=== PATIENT | female | born 1995 | race Caucasian/White ===

== ENCOUNTER 2021-06-23 14:55 | Inpatient (IN) ==
[2021-06-23] MEDS ORDERED: SODIUM CHLORIDE 0.9% 1000ML 1,000 ML IV ONE (15:11)
--- NOTE | 2021-06-23 15:15 | Emergency Department Note ---
Impression & Plan Positive blood culture, Tachycardia, Fever ED Provider Note NAME: RICK JENKINS AGE: 25 SEX: F : 1995 ARRIVES VIA: Walk-In INFORMANT: Patient, ED PROVIDER(S): Josh Mccall DO CHIEF COMPLAINT: Positive blood culture HPI: The patient is a 25-year-old female who presented to the emergency department for an evaluation of a positive blood culture. We called the patient to come back to the emergency department today. She has a port in her right chest wall that was placed 2 and half weeks ago at [place] for TPN. The patient has a history of multiple medical issues for which she cannot eat properly. She has severe malnutrition because of this. She has chronic epigastric abdominal pain. She had a port placed for TPN and presented to the emergency department 2 days ago for an evaluation of fever. At that time the patient had a complete work-up and was able to be sent home. She presents back today because of a positive blood culture for yeast not Sarah albicans that was noted overnight. The patient states she feels weak and tachycardic. She denies having any recent fevers. She denies having any nausea or vomiting. She is had no cough. The patient has been compliant with the usual medications otherwise. ROS: See above HPI for pertinent positives & negatives. A total of 10 systems reviewed and were otherwise negative. PAST MEDICAL HISTORY: See Below PAST SURGICAL HISTORY: See Below FAMILY HISTORY: See Below SOCIAL HISTORY: See Below HOME MEDICATIONS: See Below ALLERGIES: See Below VITALS: See Below PHYSICAL EXAMINATION: GENERAL: Patient is awake alert in no acute distress patient is resting comfortably and showing no signs of anxiety EYES: The conjunctivae are clear. The pupils are round and reactive. EARS, NOSE, MOUTH AND THROAT: The nose is without any evidence of any deformity. NECK: The neck is nontender and supple. RESPIRATORY: Normal respiratory effort is noted there is no evidence of wheezing rhonchi or rales CARDIOVASCULAR: Tachycardic rate with regular rhythm was noted. There was no definite murmur. GASTROINTESTINAL: The abdomen is soft. Abdomen is nontender. MUSCULOSKELETAL/EXTREMITIES: There is no evidence of gross deformity full range of motion is noted in the hips and shoulders. SKIN: There is no obvious evidence of any rash. There are no petechiae, pallor or cyanosis noted. NEUROLOGIC: Patient is awake alert and oriented x 3. Gait was steady. MEDICAL DECISION MAKING: The patient is a 25-year-old female who presented to emergency department for an evaluation of positive blood culture. The patient has a history of a port placed 2-1/2 weeks ago in her chest for TPN. She started noticing fever over the last few days. She was seen in our facility 24 hours ago. She was not found to have any source for her infection. The patient was at home but was called today to return to the emergency department because of a positive blood culture for yeast. The patient was treated with IV antibiotics as well as IV fluids in the emergency department. I discussed her condition with the on-call [facility] hospitalist group. They will evaluate the patient in the emergency department for further management and disposition. Triage Nursing notes reviewed. Prior medical records reviewed Vital Signs: reviewed and remarkable for tachycardia. Differential diagnosis: Viral syndrome, otitis, pharyngitis, pneumonia, influenza, meningitis, urinary tract infection, sepsis, bacteremia, as well as other pathologies. ER treatment provided: See below Diagnostics interpreted by me: ECG: EKG was obtained in the emergency department. My interpretation is sinus tachycardia 118 bpm. There is no ectopy. Nonspecific T wave abnormalities were noted. This was compared to a tracing from April 092020. No significant changes were noted. Laboratory studies: As stated above and show below. Imaging studies: See below Consultation(s): I discussed this case with Deonna sahu who is on-call for the [facility] Hospitalist group. Past Med/Surg History Medical History Abdominal pain, chronic, epigastric Jaqui-Danlos disease Jejunostomy tube present On total parenteral nutrition (TPN) POTS (postural orthostatic tachycardia syndrome) Severe malnutrition Surgical History H/O wisdom tooth extraction H/O wrist surgery History of esophagogastroduodenoscopy (EGD) S/P knee surgery Left Social History Smoking Status: Never smoker Feels Safe at Home: Yes Allergies Allergies Allergy/AdvReac Type Severity Reaction Status Date / Time prochlorperazine Allergy Severe Anaphylaxis Verified 06/22/21 10:22 [From Compazine] adhesive Allergy red,swollen Verified 06/22/21 10:22 Latex, Natural Rubber AdvReac Intermediate REDDENED Verified 06/22/21 10:22 AND ITCHINESS MANY FOOD ALLERGIES Allergy Intermediate MOST Uncoded 06/22/21 10:22 COMMON REACTION IS GI UPSET POLLEN Allergy Intermediate ITCHY Uncoded 06/22/21 10:22 EYES, SNEEZING, CONGESTION Home Meds Home Medications Medication Instructions Recorded Confirmed buspirone 5 mg tablet 5 mg PO BID 04/09/21 06/22/21 celecoxib 200 mg capsule 200 mg PO DAILY PRN 04/09/21 06/22/21 famotidine 20 mg tablet 20 mg PO BID 04/09/21 06/22/21 fludrocortisone 0.1 mg tablet 0.1 mg PO DAILY 04/09/21 06/22/21 gabapentin 100 mg capsule 200 mg PO TID 04/09/21 06/22/21 loratadine 10 mg tablet 10 mg PO DAILY 04/09/21 06/22/21 montelukast 10 mg tablet 10 mg PO DAILY 04/09/21 06/22/21 (Singulair) omeprazole 20 mg capsule,delayed 20 mg PO BID 04/09/21 06/22/21 release ondansetron HCl 8 mg tablet 8 mg PO Q8 PRN 04/09/21 06/22/21 mirtazapine 30 mg tablet (Remeron) 30 mg PO DAILY 05/29/21 06/22/21 Previous Rx's Medication Instructions Recorded cefdinir 300 mg capsule 300 mg PO BID 10 Days #20 cap 06/22/21 cefdinir 300 mg capsule 300 mg PO BID 10 Days #20 cap 06/22/21 Results & Data (ED) Vital Signs Vital Signs - 24 hr 06/23/21 14:55 Temperature 37.1 C Temperature Source Temporal Artery Scan Pulse Rate 129 H Respiratory Rate 19 Respiratory Effort / Characteristics Non-Labored Spontaneous Respiratory Depth Normal Respiratory Pattern Regular Blood Pressure 115/80 Blood Pressure Mean 91 Pulse Oximetry 96 Oxygen Delivery Method Room Air Sepsis Recent Fever Within 48 Hours Yes Sepsis New/Unexplained Change in Mental Status N/A Sepsis Action Taken by Nursing No Action Required Home Medications Current Medication List: was personally reviewed by me Laboratory Data Attestation: I reviewed the patient's lab results. Result diagrams: 06/23/21 15:57 06/23/21 15:57 Lab Results 06/23/21 06/23/21 06/23/21 Range/Units 15:57 15:57 15:57 WBC 2.57 L (4.8-10.8) K/uL RBC 4.27 (4.2-5.4) M/uL Hgb 12.8 (12.0-16.0) g/dL Hct 39.1 (37-47) % MCV 91.6 (80-100) fL MCH 30.0 (25-34) pg MCHC 32.7 (32-36) g/dL RDW Std Deviation 43.8 (36.4-46.3) fL RDW Coeff of Priscilla 13.0 (11.5-14.5) % Plt Count 300 (130-400) K/uL MPV 10.3 (7.4-10.4) fL Immature Gran % (Auto) 0.4 % Neut % (Auto) 56.7 % Lymph % (Auto) 39.7 % [place] % (Auto) 0.8 % Eos % (Auto) 1.6 % Baso % (Auto) 0.8 % Neut # (Auto) 1.46 (1.4-6.5) K/uL Lymph # (Auto) 1.02 L (1.2-3.4) K/uL [place] # (Auto) 0.02 L (0.11-0.59) K/uL Eos # (Auto) 0.04 (0-0.5) K/uL Baso # (Auto) 0.02 (0-0.2) K/uL Immature Gran # (Auto) 0.01 (0.00-0.02) K/uL PT (9.0-12.0) Seconds INR (0.9-1.1) APTT (21.0-31.0) Seconds PTT Ratio Sodium 138 (136-145) mmol/L Potassium 3.7 (3.5-5.1) mmol/L Chloride 106 (98-107) mmol/L Carbon Dioxide 26 (21-32) mmol/L Anion Gap 7.0 (3-11) BUN 12 (7-18) mg/dl Creatinine 0.90 (0.6-1.2) mg/dl Est Cr Clr Drug Dosing 69.7 ml/min Est GFR ( Amer) 104.5 ml/min Est GFR (Non-Af Amer) 90.1 ml/min BUN/Creatinine Ratio 13.6 (10-20) Glucose 118 H (70-99) mg/dl Calcium 8.9 (8.5-10.1) mg/dl Magnesium 2.2 (1.8-2.4) mg/dl Total Bilirubin 0.4 (0.2-1) mg/dl AST 58 H (15-37) U/L ALT 55 (12-78) Alkaline Phosphatase 108 (45-117) U/L Troponin I < 0.015 (0-0.045) ng/ml Total Protein 8.0 (6.4-8.2) gm/dl Albumin 3.7 (3.4-5.0) gm/dl Globulin 4.3 H (2.5-4.0) gm/dl Albumin/Globulin Ratio 0.9 (0.9-2) HCG, Qual Negative (Negative) 06/23/21 Range/Units 15:57 WBC (4.8-10.8) K/uL RBC (4.2-5.4) M/uL Hgb (12.0-16.0) g/dL Hct (37-47) % MCV (80-100) fL MCH (25-34) pg MCHC (32-36) g/dL RDW Std Deviation (36.4-46.3) fL RDW Coeff of Priscilla (11.5-14.5) % Plt Count (130-400) K/uL MPV (7.4-10.4) fL Immature Gran % (Auto) % Neut % (Auto) % Lymph % (Auto) % [place] % (Auto) % Eos % (Auto) % Baso % (Auto) % Neut # (Auto) (1.4-6.5) K/uL Lymph # (Auto) (1.2-3.4) K/uL [place] # (Auto) (0.11-0.59) K/uL Eos # (Auto) (0-0.5) K/uL Baso # (Auto) (0-0.2) K/uL Immature Gran # (Auto) (0.00-0.02) K/uL PT 11.4 (9.0-12.0) Seconds INR 1.1 (0.9-1.1) APTT 28.1 (21.0-31.0) Seconds PTT Ratio 1.1 Sodium (136-145) mmol/L Potassium (3.5-5.1) mmol/L Chloride (98-107) mmol/L Carbon Dioxide (21-32) mmol/L Anion Gap (3-11) BUN (7-18) mg/dl Creatinine (0.6-1.2) mg/dl Est Cr Clr Drug Dosing ml/min Est GFR ( Amer) ml/min Est GFR (Non-Af Amer) ml/min BUN/Creatinine Ratio (10-20) Glucose (70-99) mg/dl Calcium (8.5-10.1) mg/dl Magnesium (1.8-2.4) mg/dl Total Bilirubin (0.2-1) mg/dl AST (15-37) U/L ALT (12-78) Alkaline Phosphatase (45-117) U/L Troponin I (0-0.045) ng/ml Total Protein (6.4-8.2) gm/dl Albumin (3.4-5.0) gm/dl Globulin (2.5-4.0) gm/dl Albumin/Globulin Ratio (0.9-2) HCG, Qual (Negative) Administered Medications Discontinued Medications Sodium Chloride (Nss 1000ml) 1,000 mls @ 999 mls/hr IV .Q1H1M ONE Stop: 06/23/21 16:11 Last Admin: 06/23/21 16:14 Dose: 999 mls/hr Documented by: [id number] Imaging Data Radiologist's Impression: Chest X-Ray 06/23/21 15:07 XR chest 1V portable CLINICAL HISTORY: SEPSIS. Evaluate cardiopulmonary status COMPARISON STUDY: 06/22/2021 TECHNIQUE: 1 view of the chest FINDINGS: Single frontal view of the chest demonstrates the cardiomediastinal silhouette to be within normal limits. A Port-A-Cath is again in place. The lungs are clear of alveolar opacities. There is no evidence for pleural effusion. There is no evidence for vascular congestion. There is no acute osseous pathology. IMPRESSION: No acute cardiopulmonary disease. No significant interval change. ACT 112: Negative or not required by law. Electronically signed by: Brian Heredia M.D. 06/23/2021 4:09 PM Discharge Plan Visit Data Chief Complaint: Infection Stated Complaint: PORT INFECTION ED Provider: Josh Mccall Discharge Problem: Positive blood culture, Tachycardia, Fever Patient Disposition: Being Evaluated by Hospitalist Forms Stand Alone Forms: My [facility] Prescriptions Prescriptions: No Action celecoxib 200 mg capsule 200 mg PO DAILY PRN (Reason: ..) RF: 0 buspirone 5 mg tablet 5 mg PO BID RF: 0 ondansetron HCl 8 mg tablet 8 mg PO Q8 PRN (Reason: Nausea) RF: 0 famotidine 20 mg tablet 20 mg PO BID RF: 0 omeprazole 20 mg capsule,delayed release(DR/EC) 20 mg PO BID RF: 0 montelukast [Singulair] 10 mg Tablet 10 mg PO DAILY RF: 0 gabapentin 100 mg capsule 200 mg PO TID RF: 0 fludrocortisone 0.1 mg tablet 0.1 mg PO DAILY RF: 0 loratadine 10 mg Tablet 10 mg PO DAILY RF: 0 mirtazapine [Remeron] 30 mg Tablet 30 mg PO DAILY RF: 0 cefdinir 300 mg capsule 300 mg PO BID 10 Days Qty: 20 RF: 0 cefdinir 300 mg capsule 300 mg PO BID 10 Days Qty: 20 RF: 0 Referrals Referrals: Meek Lopez MD [Primary Care Provider] -
--- NOTE | 2021-06-23 16:11 | XRay Report ---
XR chest 1V portable CLINICAL HISTORY: SEPSIS. Evaluate cardiopulmonary status COMPARISON STUDY: 06/22/2021 TECHNIQUE: 1 view of the chest FINDINGS: Single frontal view of the chest demonstrates the cardiomediastinal silhouette to be within normal li mits. A Port-A-Cath is again in place. The lungs are clear of alveolar opacities. There is no evidenc e for pleural effusion. There is no evidence for vascular congestion. There is no acute osseous patho logy. IMPRESSION: No acute cardiopulmonary disease. No significant interval change. ACT 112: Negative or not required by law. Electronically signed by: Brian Heredia M.D. 06/23/2021 4:09 PM
[2021-06-23 16:13] LABS: Basophils # (auto) 0.02 K/uL (0-0.2); Basophils % (auto) 0.8 %; Eosinophils # (auto) 0.04 K/uL (0-0.5); Eosinophils % (auto) 1.6 %; Hematocrit (blood only) 39.1 % (37-47); Hemoglobin 12.8 g/dL (12.0-16.0); Immature Granulocytes # (auto) 0.01 K/uL (0.00-0.02); Immature Granulocytes % (auto) 0.4 %; Lymphocytes # (auto) 1.02 K/uL (1.2-3.4); Lymphocytes % (auto) 39.7 %; Mean Corpuscular Hgb Conc 32.7 g/dL (32-36); Mean Corpuscular Volume 91.6 fL (80-100); Mean Platelet Volume 10.3 fL (7.4-10.4); Monocytes # (auto) 0.02 K/uL (0.11-0.59); Monocytes % (auto) 0.8 %; Neutrophils # (auto) 1.46 K/uL (1.4-6.5); Neutrophils % (auto) 56.7 %; Platelet Count 300 K/uL (130-400); RDW Standard Deviation 43.8 fL (36.4-46.3); Red Blood Count 4.27 M/uL (4.2-5.4); White Blood Count 2.57 K/uL (4.8-10.8)
[2021-06-23] MEDS ORDERED: CASPOFUNGIN 70 MG in SODIUM CHLORIDE 0.9% 250 ML IV STA (16:18)
[2021-06-23 16:19] LABS: INR 1.1 (0.9-1.1); Partial Thromboplastin Ratio 1.1; Partial Thromboplastin Time 28.1 Seconds (21.0-31.0); Prothrombin Time 11.4 Seconds (9.0-12.0)
[2021-06-23 16:30] LABS: Alanine Aminotransferase 55 (12-78); Albumin Level 3.7 gm/dl (3.4-5.0); Aspartate Aminotransferase 58 U/L (15-37); BUN Creatinine Ratio 13.6 (10-20); Blood Urea Nitrogen 12 mg/dl (7-18); Calcium 8.9 mg/dl (8.5-10.1); Carbon Dioxide 26 mmol/L (21-32); Chloride 106 mmol/L (98-107); Creatinine Clr Calc Pharmacy 69.7 ml/min; Est GFR (African American) 104.5 ml/min; Est GFR (Non-African American) 90.1 ml/min; Glucose 118 mg/dl (70-99); Magnesium 2.2 mg/dl (1.8-2.4); Potassium 3.7 mmol/L (3.5-5.1); Sodium 138 mmol/L (136-145)
[2021-06-23 16:33] LABS: Pregnancy Test, Serum Negative (Negative)
[2021-06-23 16:35] LABS: Albumin Globulin Ratio 0.9 (0.9-2); Alkaline Phosphatase 108 U/L (45-117); Bilirubin,Total 0.4 mg/dl (0.2-1); Globulin 4.3 gm/dl (2.5-4.0); Troponin I < 0.015 ng/ml (0-0.045)
[2021-06-23 16:50] LABS: Procalcitonin 0.24 ng/ml (0-0.5)
--- NOTE | 2021-06-23 17:50 | Communication Note ---
Date of Service: June 23, 2021 History and physical exam performed by me. History notable for fever, mildly for the past 2 days. Recent port placement for TPN last month. General: No acute distress and not ill appearing. Thin with bony prominences Eyes: PERRL, conjunctivae normal, not pale, anicteric sclerae, EOM intact bilaterally ENMT: External ear and nose normal, oropharynx normal Respiratory: Normal respiratory effort, no respiratory distress, lungs clear to auscultation, no crackles and no wheezes Cardiovascular: Tachycardia (chronic). Heart Sounds: normal S1 and normal S2; Extremities: no pedal edema Chest (Breasts): chest port on anterior right upper chest. No erythema or purulence Gastrointestinal (Abdomen): Abdomen is not distended, soft, non-tender to palpation, no guarding, no palpable hepatosplenomegaly, normal bowel sounds PEG tube in place Musculoskeletal: No cyanosis or clubbing, all extremities motor strength 5/5 Neurologic: Alert and oriented x 3, No focal weakness, sensation grossly intact Psychiatric: Alert and oriented x 3, euthymic affect, no depressed affect Lab work notable for WBC of 2.57, AST of 58 Blood culture from yesterday growing yeast Fungemia in a patient with port for which she gets TPN. Severe malnutrition Started on caspofungin. We will continue this. Get ophthalmology consult for funduscopic exam TTE Surgery consulted to remove port Repeat blood cultures until negative I called ID Dr. Alcazar and discussed plans with him which he agreed. Agree with other plans as detailed by Deonna MENDENHALL
[2021-06-23 17:52] LABS: Influenza A virus by PCR Negative (Neg); Influenza B virus by PCR Negative (Neg); RSV by PCR Negative (Neg); SARS CoV2 RNA(COVID-19) InHosp NEGATIVE (Negative)
--- NOTE | 2021-06-23 18:01 | History & Physical Report ---
Date of Service June 23, 2021 Assessment & Plan (1) Fungemia: Plan: -Admit to telemetry -Patient presenting back to the ED after blood cultures from yesterday became positive for yeast, not Sarah albicans. Patient had a right chest tunneled catheter placed on 05/30 at [facility] for TPN administration. Patient previously on tube feeds through GJ tube however became intolerant. -Patient currently afebrile, hemodynamically stable -S/p IV caspofungin in ED, continue with -ID consult -echo -Due to fungemia, ophthalmology consult for eye exam -General surgery consult for line removal -Serial blood cultures every 2 days (2) POTS (postural orthostatic tachycardia syndrome): Plan: -Continue Florinef (3) Abdominal pain, chronic, epigastric: (4) On total parenteral nutrition (TPN): (5) Severe malnutrition: Plan: -Longstanding history of GI issues, has had extensive work-up completed. Patient is TPN/tube feed dependent due to multiple food intolerances and chronic nausea and abdominal pain. -Patient had a right chest tunneled catheter placed on 05/30 at [facility] for TPN administration. Patient previously on tube feeds through GJ tube however became intolerant. -Patient reports she does take a few bites of food per day. Full liquid diet ordered, advance as tolerated -Start water flushes through GJ tube, may need to restart tube feeds due to removing line due to fungemia -Dietitian consult (6) Jaqui-Danlos disease: (7) Chronic pain: Plan: -Continue home medications (8) DVT prophylaxis: Plan: -SCDs, ambulate History of Present Illness Chief Complaint: Referred for positive blood cultures Primary Care Provider: Meek Lopez MD 25-year-old female with PMH Jaqui-Danlos, POTS, chronic pain syndrome, chronic GI issues with inability to tolerate p.o. TPN and tube feed dependent, severe protein calorie malnutrition, and other problems listed below who presents to the ED due to having positive blood cultures. Patient had a right chest tunneled catheter placed on 05/30 at [facility] for TPN administration. Patient previously on tube feeds through GJ tube however became intolerant. 2 days ago, patient reports she developed fever and was generally not feeling well. She was seen in the ED yesterday and was febrile however work-up was unremarkable. Patient was discharged on cefdinir. Today, blood cultures from yesterday resulted as yeast not Sarah albicans. Patient received a phone call to come back to the ED. Patient denies having any additional fevers. She struggles with chronic nausea and abdominal pain. No chest pain or shortness of breath. Denies lightheadedness, dizziness, diaphoresis, syncopal events. Heart rate chronically runs in the low 100s due to underlying POTS. No urinary symptoms. In the ED, patient is hemodynamically stable. Labs show leukopenia with WBC 2.5K, other labs unremarkable. Patient was given IV caspofungin and IVF. Allergies Allergy/AdvReac Type Severity Reaction Status Date / Time prochlorperazine Allergy Severe Anaphylaxis Verified 06/22/21 10:22 [From Compazine] adhesive Allergy red,swollen Verified 06/22/21 10:22 Latex, Natural Rubber AdvReac Intermediate REDDENED Verified 06/22/21 10:22 AND ITCHINESS MANY FOOD ALLERGIES Allergy Intermediate MOST Uncoded 06/22/21 10:22 COMMON REACTION IS GI UPSET POLLEN Allergy Intermediate ITCHY Uncoded 06/22/21 10:22 EYES, SNEEZING, CONGESTION Home Medications Medication Instructions Recorded Confirmed Type buspirone 5 mg tablet 5 mg PO BID 04/09/21 06/23/21 History famotidine 20 mg tablet 20 mg PO BID 04/09/21 06/23/21 History fludrocortisone 0.1 mg tablet 0.1 mg PO DAILY 04/09/21 06/23/21 History gabapentin 100 mg capsule 200 mg PO TID 04/09/21 06/23/21 History loratadine 10 mg tablet 10 mg PO DAILY 04/09/21 06/23/21 History montelukast 10 mg tablet 10 mg PO DAILY 04/09/21 06/23/21 History (Singulair) omeprazole 20 mg capsule,delayed 20 mg PO BID 04/09/21 06/23/21 History release ondansetron HCl 8 mg tablet 8 mg PO Q8 PRN 04/09/21 06/23/21 History cefdinir 300 mg capsule 300 mg PO BID 10 Days #20 cap 06/22/21 06/23/21 Rx pregabalin 50 mg capsule 50 mg PO BID 06/23/21 06/23/21 History Past Med/Surg History Medical History Abdominal pain, chronic, epigastric Chronic pain Jaqui-Danlos disease Jejunostomy tube present On total parenteral nutrition (TPN) POTS (postural orthostatic tachycardia syndrome) Severe malnutrition Surgical History H/O wisdom tooth extraction H/O wrist surgery History of esophagogastroduodenoscopy (EGD) S/P knee surgery Left Family History Other Adopted Social History Smoking Status: Never smoker Hx Alcohol Use: No Feels Safe at Home: Yes Review of Systems Review of Systems: ROS per HPI, all other systems reviewed and negative Physical Exam Physical Exam: Please refer to Dr. Osei's addendum for physical exam. Results & Data Results & Data ([facility]) Vital Signs (Past 12 Hours) Vital Signs Temp Pulse Resp BP BP Pulse Ox 06/23/21 17:11 110 H 18 116/77 98 06/23/21 14:55 37.1 C 129 H 19 115/80 96 Laboratory Results Short CBC 06/23/21 Range/Units 15:57 WBC 2.57 L (4.8-10.8) K/uL Hgb 12.8 (12.0-16.0) g/dL Hct 39.1 (37-47) % Plt Count 300 (130-400) K/uL BMP 06/23/21 15:57 Sodium 138 Potassium 3.7 Chloride 106 Carbon Dioxide 26 BUN 12 Creatinine 0.90 Glucose 118 H Calcium 8.9 Cardiac Enzymes 06/23/21 Range/Units 15:57 Troponin I < 0.015 (0-0.045) ng/ml Liver Function 06/23/21 Range/Units 15:57 Total Bilirubin 0.4 (0.2-1) mg/dl AST 58 H (15-37) U/L ALT 55 (12-78) Alkaline Phosphatase 108 (45-117) U/L Albumin 3.7 (3.4-5.0) gm/dl Diagnostic Findings Chest X-Ray 06/23/21 15:07 XR chest 1V portable CLINICAL HISTORY: SEPSIS. Evaluate cardiopulmonary status COMPARISON STUDY: 06/22/2021 TECHNIQUE: 1 view of the chest FINDINGS: Single frontal view of the chest demonstrates the cardiomediastinal silhouette to be within normal limits. A Port-A-Cath is again in place. The lungs are clear of alveolar opacities. There is no evidence for pleural effusion. There is no evidence for vascular congestion. There is no acute osseous pathology. IMPRESSION: No acute cardiopulmonary disease. No significant interval change. ACT 112: Negative or not required by law. Electronically signed by: Brian Heredia M.D. 06/23/2021 4:09 PM Code Status & VTE Plan VTE Prophylaxis Plan VTE Prophylaxis will be ordered: Yes Supervising Physician Co-Signing Physician Notes Date of Service: June 23, 2021 History and physical exam performed by me. History notable for fever, mildly for the past 2 days. Recent port placement for TPN last month. General: No acute distress and not ill appearing. Thin with bony prominences Eyes: PERRL, conjunctivae normal, not pale, anicteric sclerae, EOM intact bilaterally ENMT: External ear and nose normal, oropharynx normal Respiratory: Normal respiratory effort, no respiratory distress, lungs clear to auscultation, no crackles and no wheezes Cardiovascular: Tachycardia (chronic). Heart Sounds: normal S1 and normal S2; Extremities: no pedal edema Chest (Breasts): chest port on anterior right upper chest. No erythema or purulence Gastrointestinal (Abdomen): Abdomen is not distended, soft, non-tender to palpation, no guarding, no palpable hepatosplenomegaly, normal bowel sounds PEG tube in place Musculoskeletal: No cyanosis or clubbing, all extremities motor strength 5/5 Neurologic: Alert and oriented x 3, No focal weakness, sensation grossly intact Psychiatric: Alert and oriented x 3, euthymic affect, no depressed affect Lab work notable for WBC of 2.57, AST of 58 Blood culture from yesterday growing yeast Fungemia in a patient with port for which she gets TPN. Severe malnutrition Started on caspofungin. We will continue this. Get ophthalmology consult for funduscopic exam TTE Surgery consulted to remove port Repeat blood cultures until negative I called ID Dr. Alcazar and discussed plans with him which he agreed. Agree with other plans as detailed by Deonna MENDENHALL
[2021-06-23] MEDS ORDERED: ACETAMINOPHEN 325 MG TAB PO PRN (19:47)
[2021-06-23] MEDS: CASPOFUNGIN 50 MG in SODIUM CHLORIDE 0.9% 250 ML IV SCH (20:09)
[2021-06-23] MEDS: SODIUM CHLORIDE 0.9% 1000ML 1,000 ML IV SCH (20:09)
--- NOTE | 2021-06-23 20:39 | Surgery Consultation ---
Date of Consultation June 23, 2021 Assessment & Plan (1) Fungemia: Patient has been admitted on the hospitalist service. We will proceed as follows: We will make the patient n.p.o. at midnight tonight We have tentatively planned on removing the patient's tunneled line in the operating room tomorrow I discussed with the patient the rationale behind removing her catheter. I have also discussed with her that she may require an alternate form of access temporarily for more permanent catheter can be placed so she can resume her nutrition. Agree with treatment with Function. Will Defer the Duration of This Medication to the Medical Service. Agree with Checking 2D Echo Agree with Ophthalmology Evaluation Supervising Physician Co-Signing Physician Notes As per Rocael Ravi physician administration assistant There is no evidence of any drainage at the insertion site therefore we will plan to remove in the operating room with some IV sedation We will obtain permit in the preop area History of Present Illness Reason for Consultation: Infected central access line in need of removal Attending Physician: Alexus Osei MD History of Present Illness This a 25-year female who was seen in the emergency department yesterday secondary to fever and headache. Patient has a complicated gastrointestinal medical history. Patient's notes reviewed and patient does have chronic postprandial abdominal pain. Patient says that she has never been given a definitive diagnosis of what is causing her symptomatology. Because of her abdominal pain the patient at one point did require enteral tube feeds which she did not tolerate. She said when she received enteral tube feeds cause significant abdominal pain and cramping. Because of this the patient did have a tunneled central access catheter placed in the right IJ region. The patient notes that this was placed at [facility] in [place] on May 30 of this year. As noted previously the patient said she developed a fever and headache. She also noted some palpitations and she was noted to be tachycardic. She was seen in the emergency department where she had blood culture sent. She was able to be discharged home after she received some intravenous fluid. The patient's blood culture results came back in one of the cultures was positive for fungemia and the patient was contacted and told to report back to the emergency department for admission. I questioned patient about her port. She says that she uses it for total parenteral nutrition only. She denies using this port for any additional medications or substances. She denies any pain at the port. She does note that either her or her parents administer her nutrition through this port and she feels that they use due diligence and using sterile technique when doing so. He does note that she has visiting nurses who also assist with some of her care of this port. Patient denies any chest pain. She denies any shortness of breath. She denies any visual changes. She says she is not short of breath. At the time of my interview she has not had any abdominal pain. Patient has had labs and imaging which I independently reviewed. A chest x-ray showed no evidence of pneumonia. Labs today include a white blood cell count of 2.57. Her hemoglobin, hematocrit, and platelet count are all normal. Coagulation studies noted to be normal. Chemistry profile showed sodium, potassium, BUN, and creatinine are all within normal range. A Covid test was performed and was noted to be negative. She was also tested for influenza a and B along with RSV which were all negative. At the time of my interview the patient was resting comfortably in bed she was no distress The medical service has ordered an echocardiogram they have also requested an ophthalmology evaluation due to the noted fungemia. They have consulted with ID and they have initiated capsule function. They have now consulted surgery and request to have the patient's line removed as a source of infection. Allergies Allergy/AdvReac Type Severity Reaction Status Date / Time prochlorperazine Allergy Severe Anaphylaxis Verified 06/22/21 10:22 [From Compazine] adhesive Allergy red,swollen Verified 06/22/21 10:22 Latex, Natural Rubber AdvReac Intermediate REDDENED Verified 06/22/21 10:22 AND ITCHINESS MANY FOOD ALLERGIES Allergy Intermediate MOST Uncoded 06/22/21 10:22 COMMON REACTION IS GI UPSET POLLEN Allergy Intermediate ITCHY Uncoded 06/22/21 10:22 EYES, SNEEZING, CONGESTION Home Medications Medication Instructions Recorded Confirmed Type buspirone 5 mg tablet 5 mg PO BID 04/09/21 06/23/21 History famotidine 20 mg tablet 20 mg PO BID 04/09/21 06/23/21 History fludrocortisone 0.1 mg tablet 0.1 mg PO DAILY 04/09/21 06/23/21 History gabapentin 100 mg capsule 200 mg PO TID 04/09/21 06/23/21 History loratadine 10 mg tablet 10 mg PO DAILY 04/09/21 06/23/21 History montelukast 10 mg tablet 10 mg PO DAILY 04/09/21 06/23/21 History (Singulair) omeprazole 20 mg capsule,delayed 20 mg PO BID 04/09/21 06/23/21 History release ondansetron HCl 8 mg tablet 8 mg PO Q8 PRN 04/09/21 06/23/21 History cefdinir 300 mg capsule 300 mg PO BID 10 Days #20 cap 06/22/21 06/23/21 Rx pregabalin 50 mg capsule 50 mg PO BID 06/23/21 06/23/21 History Patient History Medical History Abdominal pain, chronic, epigastric Chronic pain Jaqui-Danlos disease Jejunostomy tube present On total parenteral nutrition (TPN) POTS (postural orthostatic tachycardia syndrome) Severe malnutrition Surgical History H/O wisdom tooth extraction H/O wrist surgery History of esophagogastroduodenoscopy (EGD) S/P knee surgery Left Family History Other Adopted Social History Smoking Status: Unknown if ever smoked Hx Alcohol Use: No Hx Substance Use: No Preferred Language: Colombian Communication Ability: Effective Spud Sorter Required: No Beliefs That Will Affect Care: None Current Living Situation: Parent Feels Safe at Home: Yes Review of Systems Constitutional: + fever; no chills Eyes: no blind spots and no diplopia Ear, Nose, Mouth, Throat: no ear pain and no sore throat Respiratory: no cough and no dyspnea Cardiovascular: no chest pain Gastrointestinal: no nausea and no vomiting Genitourinary: no dysuria Musculoskeletal: no back pain Integumentary: no rash Neurologic: no localized weakness Physical Exam Constitutional: well developed and well nourished; no acute distress Eyes: PERRL, conjunctivae normal, anicteric sclerae ENMT: Ears: no hearing impairment and no external ear abnormality Mouth: no oropharynx abnormality Neck: trachea midline Respiratory: Patient has a tunneled catheter noticed in the right IJ position. There is no erythema noted at the insertion site of her catheter. There is no crepitus noted in soft tissue there is no drainage. There is no pain with palpation. Cardiovascular: Rate/Rhythm: regular rate and regular rhythm Heart Sounds: no murmur Gastrointestinal (Abdomen): Soft, nontender Musculoskeletal: No calf tenderness Skin: no rashes Neurologic: moves all extremities Psychiatric: A+Ox3, euthymic affect Results & Data ([facility]) Vital Signs (Past 12 Hours) Vital Signs Temp Pulse Pulse Resp BP BP Pulse Ox 06/23/21 20:07 117 H 19 114/91 99 06/23/21 18:46 103 H 18 111/78 99 06/23/21 17:11 110 H 18 116/77 98 06/23/21 14:55 37.1 C 129 H 19 115/80 96 Pulse Ox 06/23/21 20:07 99 06/23/21 18:46 06/23/21 17:11 06/23/21 14:55 PG Care Time/CCT Total # of Minutes Spent Total Time Spent with Patient: Total time spent is greater than 50% in coordination of care (as documented) at patient's floor/unit and/or counseling patient: Coding Level of Care Code 22490 Inpt Consult Level 5 Diagnoses Fungemia B49
[2021-06-23] MEDS: TUBE FEEDING WATER FLUSH GT SCH (20:58)
[2021-06-24] MEDS: TUBE FEEDING WATER FLUSH GT SCH ×5 (01:01→21:41)
[2021-06-24 05:55] LABS: Hematocrit (blood only) 37.2 % (37-47); Hemoglobin 11.9 g/dL (12.0-16.0); Mean Corpuscular Hemoglobin 29.1 pg (25-34); Mean Platelet Volume 10.1 fL (7.4-10.4); Platelet Count 275 K/uL (130-400); RDW Coefficient of Variation 12.9 % (11.5-14.5); RDW Standard Deviation 43.2 fL (36.4-46.3); Red Blood Count 4.09 M/uL (4.2-5.4); White Blood Count 3.37 K/uL (4.8-10.8)
[2021-06-24 06:23] LABS: Calcium 8.8 mg/dl (8.5-10.1); Creatinine Clr Calc Pharmacy 104.5 ml/min; Est GFR (African American) 148.9 ml/min; Est GFR (Non-African American) 128.5 ml/min; Phosphorus 3.1 mg/dl (2.5-4.9); Potassium 3.6 mmol/L (3.5-5.1)
[2021-06-24] MEDS ORDERED: LIDOCAINE 1% LOCAL 20 ML VIAL ONE (07:21)
[2021-06-24] MEDS ORDERED: MIDAZOLAM HCL 1 MG/ML 2ML VIAL ONE (07:37)
--- NOTE | 2021-06-24 07:38 | Anesthesiology Consultation ---
Date of Service June 24, 2021 Assessment & Plan (1) Encounter for pre-operative examination: Chart Review Chart Review: Acceptable Risk for Surgery History Surgery Operation Date: 06/24/21 07:30 Proposed Procedures p Infusaport Removal - Hector Tracy MD, FACS Height/Weight Height: 5 ft 3 in Weight: 45.4 kg Allergies Allergy/AdvReac Type Severity Reaction Status Date / Time prochlorperazine Allergy Severe Anaphylaxis Verified 06/22/21 10:22 [From Compazine] adhesive Allergy red,swollen Verified 06/22/21 10:22 Latex, Natural Rubber AdvReac Intermediate REDDENED Verified 06/22/21 10:22 AND ITCHINESS MANY FOOD ALLERGIES Allergy Intermediate MOST Uncoded 06/22/21 10:22 COMMON REACTION IS GI UPSET POLLEN Allergy Intermediate ITCHY Uncoded 06/22/21 10:22 EYES, SNEEZING, CONGESTION Medications Home Medications Medication Instructions Recorded Confirmed Last Taken buspirone 5 mg tablet 5 mg PO BID 04/09/21 06/23/21 Unknown famotidine 20 mg tablet 20 mg PO BID 04/09/21 06/23/21 Unknown fludrocortisone 0.1 mg tablet 0.1 mg PO DAILY 04/09/21 06/23/21 Unknown gabapentin 100 mg capsule 200 mg PO TID 04/09/21 06/23/21 Unknown loratadine 10 mg tablet 10 mg PO DAILY 04/09/21 06/23/21 Unknown montelukast 10 mg tablet 10 mg PO DAILY 04/09/21 06/23/21 Unknown (Singulair) omeprazole 20 mg capsule,delayed 20 mg PO BID 04/09/21 06/23/21 Unknown release ondansetron HCl 8 mg tablet 8 mg PO Q8 PRN 04/09/21 06/23/21 Unknown cefdinir 300 mg capsule 300 mg PO BID 10 Days #20 cap 06/22/21 06/23/21 Unknown pregabalin 50 mg capsule 50 mg PO BID 06/23/21 06/23/21 Unknown Active Medications Generic Name Dose Route Start Last Admin Trade Name Freq PRN Reason Stop Dose Admin Caspofungin 50 mg/ Sodium 260 mls @ 250 mls/hr 06/23/21 19:47 06/23/21 20:09 Chloride IV 07/03/21 19:46 Not Given Q24H ZULY Sodium Chloride 1,000 mls @ 60 mls/hr 06/23/21 19:47 06/23/21 20:09 Nss 1000ml IV 07/23/21 19:46 60 mls/hr .[id number] ZULY Administration Sterile Water 20 ml 06/23/21 19:47 06/24/21 01:01 Tube Feeding Water Flush GT 07/23/21 19:46 Not Given Q6H ZULY Past Medical History Medical History Abdominal pain, chronic, epigastric Chronic pain Jaqui-Danlos disease Jejunostomy tube present On total parenteral nutrition (TPN) POTS (postural orthostatic tachycardia syndrome) Severe malnutrition Past Family History Family History Other Adopted Past Surgical History Surgical History H/O wisdom tooth extraction H/O wrist surgery History of esophagogastroduodenoscopy (EGD) S/P knee surgery Left Social History Smoking Status: Unknown if ever smoked Hx Alcohol Use: No Hx Substance Use: No Physical Exam Vital Signs Last Vital Signs Temp 36.5 C 06/24/21 06:48 Pulse 104 H 06/24/21 06:48 Resp 18 06/24/21 06:48 BP 115/81 06/24/21 06:48 Pulse Ox 99 06/24/21 06:48 Testing Laboratory Results 06/24/21 05:09 06/24/21 05:09 PT 11.4 Seconds (9.0-12.0) 06/23/21 15:57 INR 1.1 (0.9-1.1) 06/23/21 15:57 APTT 28.1 Seconds (21.0-31.0) 06/23/21 15:57
[2021-06-24] MEDS ORDERED: ATROPINE SULFATE 0.1 MG/ML 10ML SYR IV PRN (07:39)
[2021-06-24] MEDS ORDERED: ONDANSETRON INJ 2 MG/ML 2 ML VIAL IV PRN (07:39)
[2021-06-24] MEDS ORDERED: LIDOCAINE 2% 2 ML VIAL/AMP(20MG/ML) INFIL ONE (07:40)
[2021-06-24] MEDS ORDERED: PROPOFOL IV EMULSION 10 MG/ML 20 ML VIAL IV ONE ×2 (07:41→08:05)
[2021-06-24] MEDS ORDERED: PHENYLEPHRINE HCL 10 MG/ML VIAL ONE (08:05)
--- NOTE | 2021-06-24 08:12 | Post Operative Brief Note ---
PG Immediate Post Op with CF Date of Surgery June 24, 2021 Pre & Post Diagnosis Operation Date: 06/24/21 07:30 Pre-Op Diagnosis: Fungemia of Central Line Post-Op Diagnosis: Fungemia of Central Line I identified the patient and participated in the time-out.: Yes Procedure Operation Date: 06/24/21 07:30 Actual Procedures p Removal of Right Tunneled Central Line in Internal Jugular Catheter(Right) - Hector Tracy MD, FACS Surgeon Hector Tracy MD, FACS [employer] 0 Estimated Blood Loss 5 Findings Consistent with Post-Op Diagnosis Specimens Specimen Description: Permenant A: Removed Right Jugular Catheter Culture 1. Right Jugular Catheter
--- NOTE | 2021-06-24 08:21 | Operative Report ---
Post Operative Report Pre & Post Diagnosis Operation Date: 06/24/21 07:30 Pre-Op Diagnosis: Fungemia of Central Line Post-Op Diagnosis: Fungemia of Central Line I identified the patient and participated in the time-out.: Yes Procedure Operation Date: 06/24/21 07:30 Actual Procedures p Removal of Right Tunneled Central Line in Internal Jugular Catheter(Right) - Hector Tracy MD, FACS The patient was brought into the operating theater supine position right neck and upper chest was prepped Betadine solution properly draped IV sedation had been given a timeout was had patient was identified use local anesthetic 1% Xylocaine infiltrate around the insertion site but also an area that I felt was the cough which appeared to be supra clavicular line and another indurated area midway point at this point we have taken out the sutures around the anchoring area at the insertion site and tried to pull on a catheter a little bit we were unsuccessful therefore I made an incision which felt an indurated area above the under the clavicle once we dissected this out we will give get on pseudocapsule but did not feel any cough we then made another small incision in the other area that we had prepped and there we could see over there was the cough that was present with significantly incorporated in the tissue we dissected out and at this point hemostat was placed proximal to come for distal discopathy cut the catheter was cut and we removed it in toto we looked at the centimeter whitman and the patient the catheter has been inserted in the supraclavicular area in the superior vena cava was 15 cm +4 cm peter the area was checked hemostasis it was a little bit then we were able to control was an interrupted vertical mattress of 3-0 nylon a dressing was applied the catheter was sent down for cultures and also for identification The procedure was tolerated well by the patient estimate blood loss 5 cc Surgeon Hector Tracy MD, FACS Perforator Loader 0 Estimated Blood Loss 5 Findings Consistent with Post-Op Diagnosis Tunnel right internal jugular catheter Specimens Catheter Part of it was sent for cultures and sensitivity Indications Fungemia Description of Procedure merda I attest to the content of the Intraoperative Record and any orders documented therein. Any exceptions are noted below.
--- NOTE | 2021-06-24 08:40 | Anesthesiology Progress Note ---
Date of Service June 24, 2021 Anesthesia Post Procedure Vital Signs Vital Signs: Temp Pulse Pulse Resp BP BP Pulse Ox 06/24/21 08:35 36.1 C L 75 16 109/77 97 06/24/21 08:25 84 16 81/45 L 96 06/24/21 08:19 36.1 C L 90 16 87/46 L 97 06/24/21 06:48 36.5 C 104 H 18 115/81 99 06/24/21 02:19 37.1 C 105 H 16 115/74 98 06/24/21 01:00 95 H 16 105/65 97 06/23/21 20:07 117 H 19 114/91 99 06/23/21 18:46 103 H 18 111/78 99 06/23/21 17:11 110 H 18 116/77 98 06/23/21 14:55 37.1 C 129 H 19 115/80 96 Pulse Ox 06/24/21 08:35 06/24/21 08:25 06/24/21 08:19 06/24/21 06:48 06/24/21 02:19 06/24/21 01:00 06/23/21 20:07 99 06/23/21 18:46 06/23/21 17:11 06/23/21 14:55 Transfer of Care Handoff Completed per policy Notes Mental Status: alert / awake / arousable Patient Amnestic to Procedure: Yes Nausea / Vomiting: adequately controlled Pain: adequately controlled Airway Patency, RR, SpO2: stable & adequate BP & HR: stable & adequate Hydration State: stable & adequate Anesthetic Complications: no major complications apparent
[2021-06-24] MEDS: SODIUM CHLORIDE 0.9% 1000ML 1,000 ML IV SCH (09:12)
--- NOTE | 2021-06-24 10:43 | Hospitalist Progress Note ---
Date of Service June 24, 2021 Assessment & Plan (1) Fungemia: Plan: -Patient presented back to the ED after blood cultures from 06/22/21 became positive for yeast, not Sarah albicans. Patient had a right chest tunneled catheter placed on 05/30 at [facility] for TPN administration. Patient previously on tube feeds through GJ tube however became intolerant. -Patient afebrile since admission, hemodynamically stable Continue iv caspofungin Get TTE Awaiting Ophtho for fundoscopic exam Chest port removed by surgery this morning Follow up blood cultures. Need repeat cultures until negative ID consult I did speak with ID on admission over the phone and he agrees with current plan (2) POTS (postural orthostatic tachycardia syndrome): Plan: -Continue Florinef (3) Abdominal pain, chronic, epigastric: (4) On total parenteral nutrition (TPN): (5) Severe malnutrition: Plan: -Longstanding history of GI issues, has had extensive work-up completed. Patient is TPN/tube feed dependent due to multiple food intolerances and chronic nausea and abdominal pain. -Patient had a right chest tunneled catheter placed on 05/30 at [facility] for TPN administration. Patient previously on tube feeds through GJ tube however became intolerant. -Patient reports she does take a few bites of food per day. Full liquid diet ordered, advance as tolerated -Water flushes through GJ tube, may need to restart tube feeds due to removing line due to fungemia -Discussed with RN to monitor intake today F/u Dietitian consult. If not having good intake, may need to start PPN in the meantime Will continue maintenance IVF for now until adequate fluid intake is established (6) Jaqui-Danlos disease: (7) Chronic pain: Plan: -Continue home medications (8) DVT prophylaxis: Plan: -SCDs, ambulate Admission and Anticipated Discharge Date Admission Date: June 23, 2021 Subjective Patient seen and examined Patient had just returned from OR and sleepy. She has no complaints at this time Per RN, no events overnight Physical Exam Physical Exam: General: Thin young lady. Sleepy but arousable Eyes: PERRL, conjunctivae normal, not pale, anicteric sclerae, EOM intact bilaterally ENMT: External ear and nose normal, oropharynx normal Respiratory: Normal respiratory effort, no respiratory distress, lungs clear to auscultation, no crackles and no wheezes Cardiovascular: Pulse is RRR. Heart Sounds: normal S1 and normal S2; no murmurs. Vessels: normal peripheral pulses Extremities: no pedal edema Chest (Breasts): Clean dressing over anterior chest. Chest port has been removed Gastrointestinal (Abdomen): Abdomen is not distended, soft, non-tender to palpation, no guarding, no palpable hepatosplenomegaly, normal bowel sounds. PEG insitu Musculoskeletal: No pedal edema Neurologic: Sleepy but arousable. Just returned from OR. No focal deficits Results & Data Results & Data ([facility]) Vital Signs (Past 12 Hours) Vital Signs Temp Pulse Resp BP Pulse Ox 06/24/21 09:59 85 16 91/56 L 97 06/24/21 09:30 94 H 16 85/49 L 98 06/24/21 09:03 36.7 C 87 16 97/62 L 99 06/24/21 08:35 36.1 C L 75 16 109/77 97 06/24/21 08:25 84 16 81/45 L 96 06/24/21 08:19 36.1 C L 90 16 87/46 L 97 06/24/21 06:48 36.5 C 104 H 18 115/81 99 06/24/21 02:19 37.1 C 105 H 16 115/74 98 06/24/21 01:00 95 H 16 105/65 97 Laboratory Results Abnormal lab results 06/23/21 06/23/21 06/24/21 Range/Units 15:57 15:57 05:09 WBC 2.57 L 3.37 L (4.8-10.8) K/uL RBC 4.09 L (4.2-5.4) M/uL Hgb 11.9 L (12.0-16.0) g/dL Lymph # (Auto) 1.02 L (1.2-3.4) K/uL [place] # (Auto) 0.02 L (0.11-0.59) K/uL Chloride (98-107) mmol/L Glucose 118 H (70-99) mg/dl AST 58 H (15-37) U/L Globulin 4.3 H (2.5-4.0) gm/dl 06/24/21 Range/Units 05:09 WBC (4.8-10.8) K/uL RBC (4.2-5.4) M/uL Hgb (12.0-16.0) g/dL Lymph # (Auto) (1.2-3.4) K/uL [place] # (Auto) (0.11-0.59) K/uL Chloride 109 H (98-107) mmol/L Glucose 61 L (70-99) mg/dl AST (15-37) U/L Globulin (2.5-4.0) gm/dl
[2021-06-24] MEDS: D5W AND NSS 1,000 ML IV SCH (14:00)
[2021-06-24 16:37] LABS: Appearance Urine Cloudy (Clear); Bacteria Urine Automated Negative (Negative); Bilirubin Urine Negative (Negative); Blood Urine 1+ (Negative); Color Urine Yellow; Epithelial Cell Urine Auto >30 /lpf (0-5); Glucose Urine UA Negative (Negative); Ketones Urine 4+ (Negative); Leukocyte Esterase Urine 1+ (Negative); Nitrite Urine Negative (Negative); Protein Urine Negative (Negative); Specific Gravity Urine 1.019 (1.000-1.030); Urobilinogen Urine Negative (Negative); pH Urine 5.5 (4.5-7.5)
[2021-06-24 16:49] LABS: RBC Urine Automated 0-4 /hpf (0-4)
[2021-06-24] MEDS: FLUDROCORTISONE ACETATE 0.1 MG TAB PO SCH (17:17)
[2021-06-24] MEDS: LORATADINE 10 MG TAB PO SCH (17:17)
[2021-06-24] MEDS: CASPOFUNGIN 50 MG in SODIUM CHLORIDE 0.9% 250 ML IV SCH (20:34)
[2021-06-24] MEDS: PREGABALIN 50 MG CAP PO SCH (20:34)
[2021-06-24] MEDS: FAMOTIDINE 20 MG TAB PO SCH (20:35)
[2021-06-24] MEDS: PANTOprazole 40 MG TAB PO SCH (20:35)
[2021-06-24] MEDS: busPIRone 5 MG TAB PO SCH (20:35)
--- NOTE | 2021-06-24 21:25 | Electrocardiogram Report ---
Test Reason : Blood Pressure : / mmHG Vent. Rate : 118 BPM Atrial Rate : 118 BPM P-R Int : 140 ms QRS Dur : 072 ms QT Int : 314 ms P-R-T Axes : 066 078 007 degrees QTc Int : 440 ms Sinus tachycardia Otherwise normal ECG When compared with ECG of 09-APR-2021 13:38, No significant change was found Confirmed by Rocco Ayers ([id number]) on 06/24/2021 9:25:25 PM Referred By: REFERRED SELF Confirmed By:Rococ Ayers
[2021-06-25] MEDS: TUBE FEEDING WATER FLUSH GT SCH ×3 (01:49→21:37)
[2021-06-25] MEDS: D5W AND NSS 1,000 ML IV SCH (08:03)
[2021-06-25] MEDS: FLUDROCORTISONE ACETATE 0.1 MG TAB PO SCH (08:04)
[2021-06-25] MEDS: PANTOprazole 40 MG TAB PO SCH ×2 (08:04→21:38)
[2021-06-25] MEDS: FAMOTIDINE 20 MG TAB PO SCH ×2 (08:04→21:38)
[2021-06-25] MEDS: LORATADINE 10 MG TAB PO SCH (08:04)
[2021-06-25] MEDS: busPIRone 5 MG TAB PO SCH ×2 (08:04→21:38)
[2021-06-25] MEDS: MONTELUKAST SODIUM 10 MG TABLET PO SCH (08:05)
[2021-06-25] MEDS: PREGABALIN 50 MG CAP PO SCH ×2 (08:07→21:40)
[2021-06-25 08:50] LABS: Hematocrit (blood only) 35.5 % (37-47); Hemoglobin 11.5 g/dL (12.0-16.0); Mean Corpuscular Hemoglobin 29.4 pg (25-34); Mean Corpuscular Hgb Conc 32.4 g/dL (32-36); Mean Corpuscular Volume 90.8 fL (80-100); Platelet Count 307 K/uL (130-400); RDW Coefficient of Variation 13.1 % (11.5-14.5); RDW Standard Deviation 43.5 fL (36.4-46.3); Red Blood Count 3.91 M/uL (4.2-5.4); White Blood Count 3.97 K/uL (4.8-10.8)
[2021-06-25 09:19] LABS: Calcium 8.9 mg/dl (8.5-10.1); Est GFR (African American) 142.9 ml/min; Est GFR (Non-African American) 123.3 ml/min
[2021-06-25 09:29] LABS: Potassium 3.4 mmol/L (3.5-5.1)
[2021-06-25] MEDS ORDERED: POTASSIUM CHLORIDE CRTAB 20 MEQ TABCR PO ONE (11:15)
--- NOTE | 2021-06-25 15:09 | Hospitalist Progress Note ---
Date of Service June 25, 2021 Assessment & Plan (1) Fungemia: Plan: -Patient presented back to the ED after blood cultures from 06/22/21 became positive for yeast, not Sarah albicans. Patient had a right chest tunneled catheter placed on 05/30 at [facility] for TPN administration. Patient previously on tube feeds through GJ tube however became intolerant. -Patient afebrile since admission, hemodynamically stable Continue iv caspofungin Echocardiogram is within normal limits. Awaiting Ophtho for fundoscopic exam Chest port removed by surgery on 06/24 Follow up blood cultures. Need repeat cultures until negative Pending ID recommendations. 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 She is under the care of a bariatric surgeon in [place] who recently admitted her for hypoglycemia and malnutrition. She was placed on TPN after J-tube feeds were leading to malnutrition. She presents to [facility] with fungemia. Port was removed yesterday and repeat cultures this morning are pending. She remains on caspofungin and is afebrile and doing well. Relative hypotension is noted. After a large tube flush this afternoon she is in tears and with stabbing pain as she is unable to tolerate this amount of volume. We will continue supportive care efforts. Pain meds or antiemetics as tolerated. Cont inue reassurance. Consider PPN once discussed with infectious disease. (3) Severe malnutrition: Plan: -Longstanding history of GI issues, has had extensive work-up completed. Patient is TPN/tube feed dependent due to multiple food intolerances and chronic nausea and abdominal pain. -Patient had a right chest tunneled catheter placed on 05/30 at [facility] for TPN administration. Patient previously on tube feeds through GJ tube however became intolerant. -Patient reports she does take a few bites of food per day. Full liquid diet ordered, however this was changed as she has a milk allergy. -Water flushes through GJ tube with these needing to be 20 cc or less. -Need to restart tube feeds due to removing line due to fungemia F/u Dietitian consult. If not having good intake, may need to start PPN in the meantime-we will discuss with infectious disease. Will continue maintenance IVF for now until adequate fluid intake is established (4) POTS (postural orthostatic tachycardia syndrome): Plan: -Continue Florinef per home regimen. (5) Jaqui-Danlos disease: Plan: Chronic. (6) Chronic pain: Plan: Continue Lyrica per home regimen. (7) DVT prophylaxis: Plan: -SCDs, ambulate Full code Disposition-uncertain at this time. DO Grecia Vidales Hospitalist Admission and Anticipated Discharge Date Admission Date: June 23, 2021 Subjective 25 yo F with EDS admitted for fungemia 2/2 port infection port removed yesterday morning patient is currently in distress 2/2 sharp pain that is stabbing her like knives after a 60 cc flush x 2 she typically gets 20cc flushes to her j tube prn has recent h/o dependency on j-tube feeds, was admitted and switched to TPN for hypoglycemia and malnutrition subsequent fungemia resulted. she remains afebrile today but is tearful and mostly in pain denies n/v went through a long list of temporizing measures and drugs that haven't helped her in the past she is currently on lyrica spoke with her GI specialist, Dr. Pitts from [facility] states she has a milk protein allergy-->full liquid diet was switched to lactose intolerant. AVOID DAIRY PRODUCTS Review of Systems Review of Systems: All systems were reviewed and negative except as indicated above. Physical Exam Physical Exam: CONSTITUTIONAL: thin, frail, vitals as above, generally tearful EYES: normal conjunctivae, no scleral icterus ENT: external ear and nose normal, MMM NECK: trachea midline RESPIRATORY: clear to auscultation bilaterally, no crackles, rales or wheezes, normal respiratory effort CARDIOVASCULAR: regular rate and rhythm, S1 and 2 heard without murmurs, gallops or rubs, no JVD, no peripheral edema CHEST: inspection of chest was normal GASTROINTESTINAL: soft, nontender, nondistended, no guarding, +Jesus tube present, no surrounding drainage, erythema present. MUSCULOSKELETAL: strength 5/5 throughout, head is normocephalic and atraumatic, SKIN: warm and dry, NEUROLOGIC: CN 2-12 grossly intact, no sensory deficit, normal cognition, normal speech, no tremor, no gross focal deficit. PSYCHIATRIC: alert cooperative and oriented to person, place and time. Results & Data Results & Data ([facility]) Vital Signs (Past 12 Hours) Vital Signs Temp Pulse Pulse Resp BP Pulse Ox 06/25/21 14:59 127 H 06/25/21 11:37 36.7 C 92 H 18 94/63 L 98 06/25/21 08:06 36.9 C 107 H 18 101/69 99 06/25/21 07:37 89 Laboratory Results Short CBC 06/25/21 Range/Units 08:13 WBC 3.97 L (4.8-10.8) K/uL Hgb 11.5 L (12.0-16.0) g/dL Hct 35.5 L (37-47) % Plt Count 307 (130-400) K/uL BMP 06/25/21 08:13 Sodium 140 Potassium 3.4 L Chloride 109 H Carbon Dioxide 23 BUN 7 Creatinine 0.68 Glucose 136 H Calcium 8.9 Urine 06/24/21 Range/Units 16:25 Urine Color Yellow Urine Appearance Cloudy A (Clear) Urine pH 5.5 (4.5-7.5) Ur Specific [place] 1.019 (1.000-1.030) Urine Protein Negative (Negative) Urine Glucose (UA) Negative (Negative) Medications Administered Current Inpatient Medications Acetaminophen (Acetaminophen 325 Mg Tab) 650 mg PO Q4H PRN PRN Reason: Pain or Fever Stop: 07/23/21 19:46 Buspirone HCl (Buspirone 5 Mg Tab) 5 mg PO BID [facility] Stop: 07/24/21 20:59 Last Admin: 06/25/21 08:04 Dose: 5 mg Documented by: Famotidine (Famotidine 20 Mg Tab) 20 mg PO BID [facility] Stop: 07/24/21 20:59 Last Admin: 06/25/21 08:04 Dose: 20 mg Documented by: Fludrocortisone Acetate (Fludrocortisone Acetate 0.1 Mg Tab) 0.1 mg PO QAM [facility] Stop: 07/24/21 14:29 Last Admin: 06/25/21 08:04 Dose: 0.1 mg Documented by: Caspofungin 50 mg/ Sodium (Chloride) 260 mls @ 250 mls/hr IV Q24H [facility] Stop: 07/03/21 19:46 Last Infusion: 06/24/21 21:41 Dose: Infused Documented by: Dextrose/Sodium Chloride (D5w And Nss) 1,000 mls @ 60 mls/hr IV .[id number] [facility] Stop: 07/24/21 14:29 Last Admin: 06/25/21 08:03 Dose: 60 mls/hr Documented by: Loratadine (Loratadine 10 Mg Tab) 10 mg PO QAM [facility] Stop: 07/24/21 14:29 Last Admin: 06/25/21 08:04 Dose: 10 mg Documented by: Montelukast Sodium (Montelukast Sodium 10 Mg Tablet) 10 mg PO DAILY [facility] Stop: 07/25/21 08:59 Last Admin: 06/25/21 08:05 Dose: 10 mg Documented by: Ondansetron HCl (Ondansetron 4 Mg Od Tab) 8 mg PO Q8H PRN PRN Reason: Nausea Stop: 07/24/21 14:24 Pantoprazole Sodium (Pantoprazole 40 Mg Tab) 40 mg PO BID [facility] Stop: 07/24/21 20:59 Last Admin: 06/25/21 08:04 Dose: 40 mg Documented by: Pregabalin (Pregabalin 50 Mg Cap) 50 mg PO BID [facility] Stop: 07/24/21 20:59 Last Admin: 06/25/21 08:07 Dose: 50 mg Documented by: Sterile Water (Tube Feeding Water Flush) 20 ml GT Q6H [facility] Stop: 07/23/21 19:46 Last Admin: 06/25/21 14:06 Dose: 20 ml Documented by:
[2021-06-25] MEDS: CASPOFUNGIN 50 MG in SODIUM CHLORIDE 0.9% 250 ML IV SCH (21:37)
[2021-06-26] MEDS: D5W AND NSS 1,000 ML IV SCH (00:04)
[2021-06-26] MEDS: TUBE FEEDING WATER FLUSH GT SCH ×5 (00:05→21:07)
[2021-06-26 08:07] LABS: Hematocrit (blood only) 30.8 % (37-47); Hemoglobin 10.1 g/dL (12.0-16.0); Mean Corpuscular Hemoglobin 29.3 pg (25-34); Mean Corpuscular Hgb Conc 32.8 g/dL (32-36); Mean Corpuscular Volume 89.3 fL (80-100); Platelet Count 295 K/uL (130-400); RDW Standard Deviation 42.3 fL (36.4-46.3); Red Blood Count 3.45 M/uL (4.2-5.4); White Blood Count 4.47 K/uL (4.8-10.8)
[2021-06-26 08:26] LABS: BUN Creatinine Ratio 5.5 (10-20); Blood Urea Nitrogen 3 mg/dl (7-18); Calcium 8.3 mg/dl (8.5-10.1); Carbon Dioxide 24 mmol/L (21-32); Chloride 112 mmol/L (98-107); Est GFR (African American) > 150.0 ml/min; Est GFR (Non-African American) 135.5 ml/min; Glucose 104 mg/dl (70-99); Magnesium 1.8 mg/dl (1.8-2.4); Phosphorus 2.9 mg/dl (2.5-4.9); Potassium 3.2 mmol/L (3.5-5.1); Sodium 142 mmol/L (136-145)
[2021-06-26] MEDS: MONTELUKAST SODIUM 10 MG TABLET PO SCH (08:26)
[2021-06-26] MEDS: FLUDROCORTISONE ACETATE 0.1 MG TAB PO SCH (08:26)
[2021-06-26] MEDS: PANTOprazole 40 MG TAB PO SCH ×2 (08:27→21:01)
[2021-06-26] MEDS: FAMOTIDINE 20 MG TAB PO SCH ×2 (08:27→21:01)
[2021-06-26] MEDS: busPIRone 5 MG TAB PO SCH ×2 (08:42→21:01)
[2021-06-26] MEDS: LORATADINE 10 MG TAB PO SCH (08:42)
[2021-06-26] MEDS: PREGABALIN 50 MG CAP PO SCH ×2 (08:45→21:03)
[2021-06-26] MEDS ORDERED: MAGNESIUM SULFATE IV SCH (09:45)
[2021-06-26] MEDS ORDERED: POTASSIUM CHLORIDE IV SCH (09:45)
[2021-06-26] MEDS ORDERED: D5W IV SCH (09:45)
[2021-06-26] MEDS ORDERED: [UNRECOGNIZED DRUG - OTHER] IV SCH (09:45)
[2021-06-26] MEDS: ONDANSETRON 4 MG OD TAB PO PRN (10:49)
--- NOTE | 2021-06-26 14:32 | Hospitalist Progress Note ---
Date of Service June 26, 2021 Assessment & Plan (1) Fungemia: Plan: -Patient presented back to the ED after blood cultures from 06/22/21 became positive for yeast, not Sarah albicans. Patient had a right chest tunneled catheter placed on 05/30 at [facility] for TPN administration. Patient previously on tube feeds through GJ tube however became intolerant. -Patient afebrile since admission, hemodynamically stable Continue iv caspofungin Echocardiogram is within normal limits. Chest port removed by surgery on 06/24 Blood cultures from 06/23 are negative. ID mentioned speciation of yeast but this is not being performed At 72 hour peter for clear blood cultures (tomorrow) would plan to place PICC line wt at [facility] double lumen to start TPN. Cont caspofungin for total two weeks. 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 She is under the care of a bariatric surgeon in [place] who recently admitted h er for hypoglycemia and malnutrition. She was placed on TPN after J-tube feeds were leading to malnutrition. She presents to [facility] with fungemia. Port was removed yesterday and repeat cultures this morning are pending. She remains on caspofungin and is afebrile and doing well. Relative hypotension is noted with h/o POTS. We will continue supportive care efforts. Pain meds or antiemetics as tolerated. Continue reassurance. Consider TPN in am once PICC in place. (3) Severe malnutrition: Plan: -Longstanding history of GI issues, has had extensive work-up completed. Patient is TPN/tube feed dependent due to multiple food intolerances and chronic nausea and abdominal pain. -Patient had a right chest tunneled catheter placed on 05/30 at [facility] for TPN administration. Patient previously on tube feeds through GJ tube however became intolerant. -Patient reports she does take a few bites of food per day. Full liquid diet ordered, however this was changed as she has a milk allergy. -Water flushes through GJ tube with these needing to be 20 cc or less. -Need to restart tube feeds due to removing line due to fungemia, however, she cannot even tolerate trickle feeds. Look to placing PICC in am and starting TPN. F/u Dietitian consult. Will continue maintenance IVF for now until adequate fluid intake is established (4) POTS (postural orthostatic tachycardia syndrome): Plan: -Continue Florinef per home regimen. (5) Jaqui-Danlos disease: Plan: Chronic. (6) Chronic pain: Plan: Continue Lyrica per home regimen. (7) DVT prophylaxis: Plan: -SCDs, ambulate Full code Disposition-uncertain at this time. Nutrition access is the most important aspect of her care at the moment. Carolina Garza DO [facility] Hospitalist Admission and Anticipated Discharge Date Admission Date: June 23, 2021 Subjective 25 yo F with EDS admitted for fungemia 2/2 port infection declining tube flushes with water today only eating 1-2 bites of food as she gets pain in her stomach with anything PO occasional nausea spoke [facility] quality [facility], Dr. Iván Nieves, who will follow her up in the outpatient setting for vision exam. afebrile. continues to report pain in her abdomen Review of Systems Review of Systems: All systems were reviewed and negative except as indicated above. Physical Exam Physical Exam: CONSTITUTIONAL: thin, frail, vitals as above, NAD EYES: normal conjunctivae, no scleral icterus ENT: external ear and nose normal, MMM NECK: trachea midline RESPIRATORY: clear to auscultation bilaterally, no crackles, rales or wheezes, normal respiratory effort CARDIOVASCULAR: regular rate and rhythm, S1 and 2 heard without murmurs, gallops or rubs, no JVD, no peripheral edema CHEST: inspection of chest was normal GASTROINTESTINAL: soft, nontender, nondistended, no guarding, +Jesus tube present, no surrounding drainage, erythema present. MUSCULOSKELETAL: strength 5/5 throughout, head is normocephalic and atraumatic, SKIN: warm and dry, NEUROLOGIC: CN 2-12 grossly intact, no sensory deficit, normal cognition, normal speech, no tremor, no gross focal deficit. PSYCHIATRIC: alert cooperative and oriented to person, place and time. Results & Data Results & Data ([facility]) Vital Signs (Past 12 Hours) Vital Signs Temp Pulse Pulse Resp BP Pulse Ox 06/26/21 11:07 36.9 C 80 20 97/66 L 96 06/26/21 11:01 87 06/26/21 07:02 36.7 C 86 16 94/62 L 98 06/26/21 04:14 36.6 C 84 14 94/63 L 99 06/26/21 03:06 36.9 C 90 16 96/62 L 98 Laboratory Results Short CBC 06/26/21 Range/Units 07:13 WBC 4.47 L (4.8-10.8) K/uL Hgb 10.1 L (12.0-16.0) g/dL Hct 30.8 L (37-47) % Plt Count 295 (130-400) K/uL BMP 06/26/21 07:13 Sodium 142 Potassium 3.2 L Chloride 112 H Carbon Dioxide 24 BUN 3 L Creatinine 0.51 L Glucose 104 H Calcium 8.3 L Medications Administered Current Inpatient Medications Acetaminophen (Acetaminophen 325 Mg Tab) 650 mg PO Q4H PRN PRN Reason: Pain or Fever Stop: 07/23/21 19:46 Buspirone HCl (Buspirone 5 Mg Tab) 5 mg PO BID [facility] Stop: 07/24/21 20:59 Last Admin: 06/26/21 08:42 Dose: 5 mg Documented by: Famotidine (Famotidine 20 Mg Tab) 20 mg PO BID [facility] Stop: 07/24/21 20:59 Last Admin: 06/26/21 08:27 Dose: 20 mg Documented by: Fludrocortisone Acetate (Fludrocortisone Acetate 0.1 Mg Tab) 0.1 mg PO QAM [facility] Stop: 07/24/21 14:29 Last Admin: 06/26/21 08:26 Dose: 0.1 mg Documented by: Caspofungin 50 mg/ Sodium (Chloride) 260 mls @ 250 mls/hr IV Q24H [facility] Stop: 07/03/21 19:46 Last Infusion: 06/26/21 00:35 Dose: Infused Documented by: Dextrose/Sodium Chloride (D5w And Nss) 1,000 mls @ 60 mls/hr IV .[id number] [facility] Stop: 07/24/21 14:29 Last Infusion: 06/26/21 10:58 Dose: 0 mls/hr Documented by: Potassium Chloride 40 meq/Magnesium Sulfate 2 gm/Dextrose/Sodium Chloride 1,024 mls @ 80 mls/hr IV .[id number] [facility] Stop: 06/26/21 22:32 Last Admin: 06/26/21 10:46 Dose: 80 mls/hr Documented by: Loratadine (Loratadine 10 Mg Tab) 10 mg PO QAM [facility] Stop: 07/24/21 14:29 Last Admin: 06/26/21 08:42 Dose: 10 mg Documented by: Montelukast Sodium (Montelukast Sodium 10 Mg Tablet) 10 mg PO DAILY [facility] Stop: 07/25/21 08:59 Last Admin: 06/26/21 08:26 Dose: 10 mg Documented by: Ondansetron HCl (Ondansetron 4 Mg Od Tab) 8 mg PO Q8H PRN PRN Reason: Nausea Stop: 07/24/21 14:24 Last Admin: 06/26/21 10:49 Dose: 8 mg Documented by: Pantoprazole Sodium (Pantoprazole 40 Mg Tab) 40 mg PO BID [facility] Stop: 07/24/21 20:59 Last Admin: 06/26/21 08:27 Dose: 40 mg Documented by: Pregabalin (Pregabalin 50 Mg Cap) 50 mg PO BID [facility] Stop: 07/24/21 20:59 Last Admin: 06/26/21 08:45 Dose: 50 mg Documented by: Sterile Water (Tube Feeding Water Flush) 20 ml GT Q6H [facility] Stop: 07/23/21 19:46 Last Admin: 06/26/21 08:26 Dose: Not Given Documented by:
[2021-06-26] MEDS ORDERED: ONDANSETRON INJ 2 MG/ML 2 ML VIAL IV PRN (18:03)
[2021-06-26] MEDS ORDERED: PROMETHAZINE HCL 25 MG SUPP PR PRN (18:03)
[2021-06-26] MEDS: CASPOFUNGIN 50 MG in SODIUM CHLORIDE 0.9% 250 ML IV SCH (21:00)
[2021-06-27] MEDS: D5W AND NSS 1,000 ML IV SCH ×2 (00:48→21:02)
[2021-06-27 07:58] LABS: BUN Creatinine Ratio 5.2 (10-20); Blood Urea Nitrogen 3 mg/dl (7-18); Calcium 8.3 mg/dl (8.5-10.1); Carbon Dioxide 26 mmol/L (21-32); Chloride 114 mmol/L (98-107); Creatinine Clr Calc Pharmacy 112.4 ml/min; Est GFR (African American) > 150.0 ml/min; Est GFR (Non-African American) 130.7 ml/min; Glucose 99 mg/dl (70-99); Magnesium 2.3 mg/dl (1.8-2.4); Potassium 3.5 mmol/L (3.5-5.1); Sodium 146 mmol/L (136-145)
[2021-06-27] MEDS: ONDANSETRON 4 MG OD TAB PO PRN (07:58)
[2021-06-27 07:59] LABS: Triglycerides 103 mg/dl (0-150)
[2021-06-27] MEDS: busPIRone 5 MG TAB PO SCH ×2 (07:59→20:01)
[2021-06-27] MEDS: LORATADINE 10 MG TAB PO SCH (07:59)
[2021-06-27] MEDS: FAMOTIDINE 20 MG TAB PO SCH ×2 (07:59→20:01)
[2021-06-27] MEDS: FLUDROCORTISONE ACETATE 0.1 MG TAB PO SCH (07:59)
[2021-06-27] MEDS: MONTELUKAST SODIUM 10 MG TABLET PO SCH (07:59)
[2021-06-27] MEDS: PANTOprazole 40 MG TAB PO SCH ×2 (07:59→20:01)
[2021-06-27] MEDS: PREGABALIN 50 MG CAP PO SCH ×2 (08:03→20:01)
[2021-06-27] MEDS: TUBE FEEDING WATER FLUSH GT SCH ×3 (08:04→20:02)
[2021-06-27] MEDS: FLUCONAZOLE 200 MG/100 ML BAG IV SCH ×4 (16:27→19:57)
--- NOTE | 2021-06-27 17:38 | Hospitalist Progress Note ---
Date of Service June 27, 2021 Assessment & Plan (1) Fungemia: (2) Severe malnutrition: (3) Jaqui-Danlos disease: (4) On total parenteral nutrition (TPN): Plan: (1) Fungemia: -Patient presented back to the ED after blood cultures from 06/22/21 became positive for yeast, not Sarah albicans. Identified by lab as Sarah T ropicalis on 06/27 - Patient had a right chest tunneled catheter placed on 05/[address] [facility] for TPN administration. Patient previously on tube feeds through GJ tube however became intolerant. -Patient afebrile since admission, hemodynamically stable DC IV caspofungin 06/23, patient initiated on fluconazole for systemic candidiasis for the rest of the duration of total of 14 days therapy. Echocardiogram is within normal limits. Blood cultures from 06/23 and 06/25 are negative so far. Chest port removed by surgery on 06/24; plan to get PICC line tomorrow. IV team asking to increase the fluid rate, to assess for PICC line tomorrow morning. Continue with antifungal therapy for total of 2 weeks. Will initiate TPN after PICC line placement. 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 She is under the care of a bariatric surgeon in [place] who recently admitted her for hypoglycemia and malnutrition. She was placed on TPN after J-tube feeds were leading to malnutrition. She presents to [facility] with fungemia. Port was removed 06/24 and repeat cultures has been negative so far. She remains on antifungal as above and is afebrile and doing well. Relative hypotension is noted with h/o POTS. We will continue supportive care efforts. Pain meds or antiemetics as tolerated. Continue reassurance. Consider TPN in am once PICC in place. (3) Severe malnutrition: -Longstanding history of GI issues, has had extensive work-up completed. Patient is TPN/tube feed dependent due to multiple food intolerances and chronic nausea and abdominal pain. -Patient had a right chest tunneled catheter placed on 05/[address] [facility] for TPN administration. Patient previously on tube feeds through GJ tube however became intolerant. -Patient reports she does take a few bites of food per day. Full liquid diet ordered, however this was changed as she has a milk allergy. -Water flushes through GJ tube with these needing to be 20 cc or less. -Need to restart tube feeds due to removing line due to fungemia, however, she cannot even tolerate trickle feeds. Look to placing PICC in am and starting TPN. F/u Dietitian consult. Will continue maintenance IVF for now until adequate fluid intake is established (4) POTS (postural orthostatic tachycardia syndrome): -Continue Florinef per home regimen. (5) Jaqui-Danlos disease: Chronic. (6) Chronic pain: Continue Lyrica per home regimen. (7) DVT prophylaxis: -SCDs, ambulate Full code Disposition-can likely be discharged in 1 to 2 days upon resuming of TPN, will need iv fluconazole. Admission and Anticipated Discharge Date Admission Date: June 23, 2021 Subjective Patient was lying in bed, on room air, sleeping, NAD, no new acute events overnight. Patient reports ongoing belly pain when trying to feed herself. Patient has minimal appetite and reports feeling weak. Patient denies fever/headache/chills/dizziness/sore throat/chest pain/palpitations/belly pain when not eating/other review of symptoms. Physical Exam Physical Exam: GENERAL: Alert and oriented x3. NAD, on RA. HEENT: No pallor, no icterus. Pupils equal, round and reactive to light. Oral mucosa moist. NECK: No JVD, no neck masses. HEART: S1 and S2 heard. Regular rate and rhythm. No murmur, no gallop. RESPIRATORY SYSTEM: Normal AP diameter. No accessory muscle use. No wheezing, no crackles. ABDOMEN: Soft, bowel sounds present, nontender, no distention. G-J tube insitu w/ no surrounding erythema/drainage/tenderness CENTRAL NERVOUS SYSTEM: No facial droop. Speech is clear. Obeys simple commands. Moves extremities. EXTREMITIES: No edema, no erythema seen. Results & Data Results & Data ([facility]) Vital Signs (Past 12 Hours) Vital Signs Temp Pulse Pulse Resp BP BP Pulse Ox 06/27/21 16:08 36.6 C 93 H 15 105/74 99 06/27/21 14:58 87 06/27/21 12:23 36.6 C 100 H 15 99/67 L 97 06/27/21 07:18 74 06/27/21 06:34 36.7 C 80 17 91/61 L 97
[2021-06-28] MEDS: TUBE FEEDING WATER FLUSH GT SCH ×4 (01:08→19:55)
[2021-06-28] MEDS: D5W AND NSS 1,000 ML IV SCH ×3 (04:55→20:37)
[2021-06-28 07:11] LABS: Hematocrit (blood only) 30.1 % (37-47); Hemoglobin 9.8 g/dL (12.0-16.0); Mean Corpuscular Hemoglobin 29.4 pg (25-34); Mean Corpuscular Hgb Conc 32.6 g/dL (32-36); Mean Corpuscular Volume 90.4 fL (80-100); Mean Platelet Volume 9.7 fL (7.4-10.4); Platelet Count 356 K/uL (130-400); RDW Coefficient of Variation 13.4 % (11.5-14.5); RDW Standard Deviation 44.1 fL (36.4-46.3); Red Blood Count 3.33 M/uL (4.2-5.4); White Blood Count 5.57 K/uL (4.8-10.8)
[2021-06-28 07:36] LABS: BUN Creatinine Ratio 5.7 (10-20); Blood Urea Nitrogen 3 mg/dl (7-18); Calcium 8.5 mg/dl (8.5-10.1); Carbon Dioxide 27 mmol/L (21-32); Chloride 113 mmol/L (98-107); Creatinine Clr Calc Pharmacy 119.9 ml/min; Est GFR (African American) > 150.0 ml/min; Est GFR (Non-African American) 133.8 ml/min; Glucose 116 mg/dl (70-99); Potassium 3.1 mmol/L (3.5-5.1); Sodium 145 mmol/L (136-145)
[2021-06-28 07:59] LABS: Phosphorus 3.5 mg/dl (2.5-4.9)
[2021-06-28] MEDS: busPIRone 5 MG TAB PO SCH ×2 (09:15→20:41)
[2021-06-28] MEDS: PREGABALIN 50 MG CAP PO SCH ×2 (09:15→20:40)
[2021-06-28] MEDS: PANTOprazole 40 MG TAB PO SCH ×2 (09:15→20:40)
[2021-06-28] MEDS: FLUDROCORTISONE ACETATE 0.1 MG TAB PO SCH (09:16)
[2021-06-28] MEDS: FAMOTIDINE 20 MG TAB PO SCH ×2 (09:16→20:41)
[2021-06-28] MEDS: LORATADINE 10 MG TAB PO SCH (09:16)
[2021-06-28] MEDS: MONTELUKAST SODIUM 10 MG TABLET PO SCH (09:16)
[2021-06-28] MEDS: POTASSIUM CHLORIDE / WTR 10 MEQ/100 ML PLCT IV SCH ×4 (09:55→13:29)
[2021-06-28] MEDS: FLUCONAZOLE 200 MG/100 ML BAG IV SCH ×2 (15:52→17:01)
--- NOTE | 2021-06-28 19:19 | Hospitalist Progress Note ---
Date of Service June 28, 2021 Assessment & Plan (1) Fungemia: (2) Severe malnutrition: (3) Jaqui-Danlos disease: (4) On total parenteral nutrition (TPN): Plan: (1) Fungemia: -Patient presented back to the ED after blood cultures from 06/22/21 became positive for yeast, not Sarah albicans. Identified by lab as Sarah T ropicalis on 06/27 - Patient had a right chest tunneled catheter placed on 05/30 at [facility] for TPN administration. Patient previously on tube feeds through GJ tube however became intolerant. -Patient afebrile since admission, hemodynamically stable DC IV caspofungin 06/23-06/27, patient initiated on fluconazole for systemic candidiasis for the rest of the duration of total of 14 days therapy. Echocardiogram is within normal limits. Blood cultures from 06/23 and 06/25 are negative so far. Chest port removed by surgery on 06/24; plan to get Chao catheter double lumen tomorrow by vascular team. N.p.o. midnight. Continue with antifungal therapy for total of 2 weeks. Will initiate TPN after Chao catheter placement. 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 She is under the care of a bariatric surgeon in [place] who recently admitted her for hypoglycemia and malnutrition. She was placed on TPN after J-tube feeds were leading to malnutrition. She presents to [facility] with fungemia. Port was removed 06/24 and repeat cultures has been negative so far. She remains on antifungal as above and is afebrile and doing well. Relative hypotension is noted with h/o POTS. We will continue supportive care efforts. Pain meds or antiemetics as tolerated. Continue reassurance. Consider TPN in am once Chao catheter in place. (3) Severe malnutrition: -Longstanding history of GI issues, has had extensive work-up completed. Patient is TPN/tube feed dependent due to multiple food intolerances and chronic nausea and abdominal pain. -Patient had a right chest tunneled catheter placed on 05/30 at [facility] for TPN administration. Patient previously on tube feeds through GJ tube however became intolerant. -Patient reports she does take a few bites of food per day. Full liquid diet ordered, however this was changed as she has a milk allergy. -Water flushes through GJ tube with these needing to be 20 cc or less. -Need to restart tube feeds due to removing line due to fungemia, however, she cannot even tolerate trickle feeds. Look to placing PICC in am and starting TPN. F/u Dietitian consult. Will continue maintenance IVF for now until adequate fluid intake is established Was for refeeding syndrome once TPN restarted. Discussed with her nutrition Dr. Over the phone 06/28. (4) POTS (postural orthostatic tachycardia syndrome): -Continue Florinef per home regimen. (5) Jaqui-Danlos disease: Chronic. (6) Chronic pain: Continue Lyrica per home regimen. (7) DVT prophylaxis: -SCDs, ambulate Full code Disposition-can likely be discharged in 1 to 2 days upon resuming of TPN, will need iv fluconazole. 06/28: I was called during the day to evaluate the patient as she was crying when IV team arrived to place a PICC line on her. Upon discussion, patient reported not feeling confident about IV team placing PICC line in her. Discussed the matter and concerns with the patient and her parents over the phone, presented several options including option of keeping US guided peripheral line in place for IV antifungal and single-lumen PICC line that would be easier to get through her small caliber veins. Patient and her family reluctant. They would like doctors to place PICC line in her. Talked with surgery and then with vascular surgery regarding PICC line versus Chao catheter placement. Then had a follow-up discussion with the family, they agreed to go with Chao catheter as there was no doctor team that would do PICC line in the hospital. Case discussed with the charge nurse as well. Admission and Anticipated Discharge Date Admission Date: June 23, 2021 Subjective Patient was lying in bed, on room air, sleeping, NAD, no new acute events overnight. Patient reports ongoing belly pain when trying to feed herself. Patient has minimal appetite and reports feeling weak and dizzy. Patient denies fever/headache/chills/dizziness/sore throat/chest pain/palpitations/belly pain when not eating/other review of symptoms. I was called again during the day to evaluate the patient as she was crying when IV team arrived to place a PICC line on her. Upon discussion, patient reported not feeling confident about IV team placing PICC line in her. Discussed the matter and concerns with the patient and her parents over the phone, presented several options including option of keeping US guided peripheral line in place for IV antifungal and single-lumen PICC line that would be easier to get through her small caliber veins. Patient and her family are reluctant. Talked with surgery and then with vascular surgery regarding PICC line versus Chao catheter placement. Then had a follow-up discussion with the family, they agreed to go with Chao catheter as there was no doctor team that would do PI CC line in the hospital. Case discussed with the charge nurse as well. Physical Exam Physical Exam: GENERAL: Alert and oriented x3. NAD, on RA. lean and thin looking HEENT: No pallor, no icterus. Pupils equal, round and reactive to light. Oral mucosa moist. NECK: No JVD, no neck masses. HEART: S1 and S2 heard. Regular rate and rhythm. No murmur, no gallop. RESPIRATORY SYSTEM: Normal AP diameter. No accessory muscle use. No wheezing, no crackles. ABDOMEN: Soft, bowel sounds present, nontender, no distention. G-J tube insitu w/ no surrounding erythema/drainage/tenderness CENTRAL NERVOUS SYSTEM: No facial droop. Speech is clear. Obeys simple commands. Moves extremities. EXTREMITIES: No edema, no erythema seen. Results & Data Results & Data ([facility]) Vital Signs (Past 12 Hours) Vital Signs Temp Pulse Pulse Resp BP Pulse Ox 06/28/21 15:57 36.6 C 85 16 108/77 16 L 06/28/21 14:57 77 06/28/21 10:59 36.3 C L 78 12 100/68 98 06/28/21 07:47 64 06/28/21 07:21 36.6 C 70 18 111/76 98
[2021-06-28] MEDS: ONDANSETRON 4 MG OD TAB PO PRN (21:31)
[2021-06-29] MEDS: TUBE FEEDING WATER FLUSH GT SCH ×4 (01:57→19:47)
[2021-06-29] MEDS: D5W AND NSS 1,000 ML IV SCH (05:35)
[2021-06-29 07:00] LABS: BUN Creatinine Ratio 5.2 (10-20); Calcium 8.7 mg/dl (8.5-10.1); Creatinine Clr Calc Pharmacy 99.3 ml/min; Est GFR (African American) 145.8 ml/min; Est GFR (Non-African American) 125.8 ml/min; Potassium 3.1 mmol/L (3.5-5.1)
[2021-06-29 07:01] LABS: Phosphorus 3.5 mg/dl (2.5-4.9)
[2021-06-29] MEDS: FAMOTIDINE 20 MG TAB PO SCH ×2 (08:20→19:55)
[2021-06-29] MEDS: busPIRone 5 MG TAB PO SCH ×2 (08:20→19:55)
[2021-06-29] MEDS: FLUDROCORTISONE ACETATE 0.1 MG TAB PO SCH (08:20)
[2021-06-29] MEDS: MONTELUKAST SODIUM 10 MG TABLET PO SCH (08:20)
[2021-06-29] MEDS: LORATADINE 10 MG TAB PO SCH (08:20)
[2021-06-29] MEDS: PANTOprazole 40 MG TAB PO SCH ×2 (08:21→19:56)
[2021-06-29] MEDS: PREGABALIN 50 MG CAP PO SCH ×2 (08:24→19:54)
[2021-06-29] MEDS: POTASSIUM CHLORIDE / WTR 10 MEQ/100 ML PLCT IV SCH ×4 (08:25→12:25)
--- NOTE | 2021-06-29 08:38 | Consultation ---
Date of Consultation June 29, 2021 Assessment & Plan (1) Severe malnutrition: Pt also seen by Dr Dick today. Pt is scheduled for sveta catheter insertion later this AM. Procedure, risks, benefits and alternatives were discussed with pt by Dr Dick, pt expresses understanding and agreement to proceed. Patient was seen, examined, and chart reviewed. Agree with exam and treatment plan of the Vascular PA. History of Present Illness Reason for Consultation: need access for TPN Attending Physician: Kelly Rodriguez MD History of Present Illness 25 yo f with multiple medical problems, admitted with fungemia from R IJ tunneled access catheter, seen in consultation today for replacement of catheter for TPN access. Pt states feeling significantly better than upon arrival. Admits fatigue. Denies HARRISON, fever, chest pain, SOB, abd pain, N/V, rest pain, claudication, other complaints. Allergies Allergy/AdvReac Type Severity Reaction Status Date / Time prochlorperazine Allergy Severe Anaphylaxis Verified 06/22/21 10:22 [From Compazine] pollen extracts Allergy Mild ITCHY Verified 06/24/21 07:54 EYES, SNEEZING, CONGESTION gluten Allergy Unknown Unknown Verified 06/24/21 07:54 peanut Allergy Unknown Unknown Verified 06/24/21 07:54 tree nut Allergy Unknown Unknown Verified 06/24/21 07:54 adhesive Allergy red,swollen Verified 06/22/21 10:22 Latex, Natural Rubber AdvReac Intermediate REDDENED Verified 06/22/21 10:22 AND ITCHINESS Home Medications Medication Instructions Recorded Confirmed Type buspirone 5 mg tablet 5 mg PO BID 04/09/21 06/23/21 History famotidine 20 mg tablet 20 mg PO BID 04/09/21 06/23/21 History fludrocortisone 0.1 mg tablet 0.1 mg PO DAILY 04/09/21 06/23/21 History gabapentin 100 mg capsule 200 mg PO TID 04/09/21 06/23/21 History loratadine 10 mg tablet 10 mg PO DAILY 04/09/21 06/23/21 History montelukast 10 mg tablet 10 mg PO DAILY 04/09/21 06/23/21 History (Singulair) omeprazole 20 mg capsule,delayed 20 mg PO BID 04/09/21 06/23/21 History release ondansetron HCl 8 mg tablet 8 mg PO Q8 PRN 04/09/21 06/23/21 History cefdinir 300 mg capsule 300 mg PO BID 10 Days #20 cap 06/22/21 06/23/21 Rx pregabalin 50 mg capsule 50 mg PO BID 06/23/21 06/23/21 History Patient History Medical History Abdominal pain, chronic, epigastric Chronic pain Jaqui-Danlos disease Jejunostomy tube present On total parenteral nutrition (TPN) POTS (postural orthostatic tachycardia syndrome) Severe malnutrition Surgical History H/O wisdom tooth extraction H/O wrist surgery History of esophagogastroduodenoscopy (EGD) History of surgery (06/24/21) Removal of Right Tunneled Central Line in Internal Jugular Catheter(Right) - Hector Tracy MD, FACS 06/24/2021 S/P knee surgery Left Family History Other Adopted Social History Smoking Status: Unknown if ever smoked Hx Alcohol Use: No Hx Substance Use: No Preferred Language: Slovenian Communication Ability: Effective Wrist Closer Required: No Beliefs That Will Affect Care: None Current Living Situation: Parent Feels Safe at Home: Yes Assistive Devices: Glasses Review of Systems Review of Systems: All systems reviewed & are unremarkable except as noted in HPI & below Physical Exam Constitutional: healthy appearing, + frail appearing, cooperative and comfortable; not in distress ENMT: Ears: no hearing impairment Neck: trachea midline Respiratory: normal respiratory effort; no respiratory distress Auscultation: lungs clear to auscultation bilaterally and + diminished lung sounds Cardiovascular: Rate/Rhythm: regular rate and regular rhythm Vessels: normal peripheral pulses, femoral pulses present, posterior tibial pulses present and dorsalis pedis pulses present Extremities: normal capillary refill; no edema Gastrointestinal (Abdomen): Inspection/Auscultation: abdomen not distended Percussion/Palpation: + abdomen tender and abdomen soft; no guarding Musculoskeletal: no cyanosis or clubbing, extremities motor strength 5/5 Skin: no rashes, warm and dry Neurologic: moves all extremities and awake; no focal motor deficits and not confused Psychiatric: A+Ox3, euthymic affect Results & Data ([facility]) Vital Signs (Past 12 Hours) Vital Signs Temp Pulse Pulse Resp BP Pulse Ox 06/29/21 07:11 36.7 C 77 16 107/73 98 06/29/21 04:21 36.7 C 76 18 101/68 97 06/28/21 23:26 36.6 C 74 16 108/78 98 06/28/21 23:08 62
[2021-06-29] MEDS ORDERED: ceFAZolin 1000MG 1,000 MG/7.5 ML SYR IV ONE (09:00)
[2021-06-29] MEDS ORDERED: MIDAZOLAM HCL 1 MG/ML 2ML VIAL ONE (09:37)
[2021-06-29] MEDS ORDERED: fentaNYL citrate 100 MCG/2 ML VIAL ONE (09:37)
[2021-06-29] MEDS ORDERED: LIDOCAINE 1% LOCAL 20 ML VIAL ONE (09:38)
--- NOTE | 2021-06-29 09:56 | Pre Anesthesia Assessment ---
Date of Service June 29, 2021 Pre Sedation Assessment Vital Signs Temp Pulse Pulse Resp BP BP Pulse Ox 06/29/21 09:46 36.8 C 76 18 113/81 99 06/29/21 09:26 72 06/29/21 07:11 36.7 C 77 16 107/73 98 06/29/21 04:21 36.7 C 76 18 101/68 97 06/28/21 23:26 36.6 C 74 16 108/78 98 06/28/21 23:08 62 06/28/21 19:46 36.9 C 81 12 111/75 99 06/28/21 15:57 36.6 C 85 16 108/77 16 L 06/28/21 14:57 77 06/28/21 10:59 36.3 C L 78 12 100/68 98 Cardiovascular RRR, no murmur, no edema Respiratory normal respiratory effort, lungs clear to auscultation Pre-Sedation Airway Assessment Smoking Status: Unknown if ever smoked Hx Sleep Apnea: No Short, Thick Neck: No Thyromental Distance: > or= 3.5 Finger Breadths Oral Cavity: + WNL Mallampati Class: II ASA: ASA2 NPO Status Date of Last Intake of Fluids: 06/28/21 Time of Last Intake of Fluids: 22:00 Date of Last Intake of Solid Food: 06/28/21 Time of Last Intake of Solid Foods: 16:00 Procedure Planning Contraindications for Sedation: none Current Medications Reviewed: Yes Notes The planned sedation has been discussed with the patient. Informed Consent was obtained. I have identified the patient, determined the appropriateness of sedation and have assessed the patient immediately prior to the procedure. All medicine(s) and interventions are by my order.
--- NOTE | 2021-06-29 10:21 | Operative Report ---
Post Operative Report Pre & Post Diagnosis Operation Date: 06/24/21 07:30 Pre-Op Diagnosis: Fungemia of Central Line Post-Op Diagnosis: Fungemia of Central Line Operation Date: 06/29/21 10:00 Pre-Op Diagnosis: malnutrition Post-Op Diagnosis: malnutrition I identified the patient and participated in the time-out.: Yes Procedure Operation Date: 06/24/21 07:30 Actual Procedures p Removal of Right Tunneled Central Line in Internal Jugular Catheter(Right) - Hector Tracy MD, FACS Operation Date: 06/29/21 10:00 Actual Procedures p Insertion of Jere Catheter, right internal jugular approach, ultrasound localization of right internal jugular vein, fluroscopy for positioning, moderate sedation [id number] Larry Dick MD Surgeon Larry Dick MD [employer] Member none Estimated Blood Loss 5 Findings Consistent with Post-Op Diagnosis Specimens none Anesthesia Type RN Sedation Complications none Disposition Accompanied Patient To Recovery: No Disposition: PCU Indications This is a 25-year-old female who has malnutrition due to malabsorption. She has had a Chao removed for infection. She is now with a negative blood cultures and is need of another catheter for TPN infusions. Letter catheter was recommended. I have discussed the risks options and benefits of the procedure with the patient. The patient understands the risks options and benefits and agrees to the procedure. Description of Procedure Patient was taken to the angio suite and placed in the supine position. The right side of the neck and chest wall were prepped and draped in a sterile manner. The patient was identified and a timeout performed. Local anesthesia was then administered to the appropriate areas of the neck and chest wall. Ultrasound was then used to locate the right internal jugular vein. The vein compressed easily, had no filing defects, and was patent. The vein was then punctured under direct ultrasound imaging. A guidewire was then passed centrally under fluoroscopic imaging. A stab wound was then made in the anterior chest wall and a Jere catheter was passed from the stab wound on the chest wall to the puncture site on the neck. The catheter was then placed on the chest wall and cut and beveled the appropriate length. The peel away sheath was inserted. The Jere catheter was then inserted through the sheath to a central position in the distal superior vena cava. The peel away sheath was then removed. The catheter was then sutured in place using nylon sutures. The puncture was then closed using a 4-0 Vicryl subcuticular suture. Dermabond was used for a dressing on the puncture site. Both ports aspirated and flushed easily and were then flushed with heparinized saline. A sterile dressing was applied to the catheter. The patient left the operation room in satisfactory condition and tolerated the procedure well. All needle and sponge counts were correct at the end of the procedure. I attest to the content of the Intraoperative Record and any orders documented therein. Any exceptions are noted below.
--- NOTE | 2021-06-29 10:24 | Post Anesthesia Assessment ---
Date of Service June 29, 2021 Post Sedation Assessment Vital Signs Temp Pulse Pulse Resp BP BP Pulse Ox 06/29/21 10:20 76 16 108/78 100 06/29/21 10:15 81 16 108/82 100 06/29/21 10:10 75 16 108/78 100 06/29/21 10:05 78 16 107/70 100 06/29/21 10:00 69 16 121/72 100 06/29/21 09:46 36.8 C 76 18 113/81 99 06/29/21 09:26 72 06/29/21 07:11 36.7 C 77 16 107/73 98 06/29/21 04:21 36.7 C 76 18 101/68 97 06/28/21 23:26 36.6 C 74 16 108/78 98 06/28/21 23:08 62 06/28/21 19:46 36.9 C 81 12 111/75 99 06/28/21 15:57 36.6 C 85 16 108/77 16 L 06/28/21 14:57 77 06/28/21 10:59 36.3 C L 78 12 100/68 98 Recovery Score Activity: Moves 4 extremities Respiration: Deep Breath/Cough Circulation: +/-20% PreAnes Value Consciousness: Fully Awake Oxygen Saturation: > 92% On Room Air Post Anesthesia Score: 10 Discharge Sedation Level of Care: Fast Track Phase II Post Sedation Plan On clinical assessment, the patient appears to have tolerated the sedation without complications. Patient is recovering as anticipated. Patient will continue to be monitored by nursing and may be discharged when sedation discharge criteria are met per below protocol. Upon Completions of procedure up to 15 minutes continue every 5 minute vital signs and the P.A.R. score; then discharge to a Phase I or Fast Track to Phase II per the following guidelines: * Discharge Patient to appropriate Phase II area if PAR is 8 or greater or return to pre- procedure baseline. The post - procedure orders will be as directed. * If PAR score is less than 8 or not return to pre-procedure baseline then patient will follow Phase I monitoring till PAR is reached for Phase II. The Phase I may be done in procedure room or may call to secure a Phase I area. * If naloxone or flumazenil are used for reversal, hold in Phase I for continued monitoring from when last reversal dose was given for a minimum of 60 minutes or longer pending the nurse and/or physician discretion of patient condition before discharge to Phase II. Please call the Sedation Physician to re-evaluate and complete post-note for discharge to Phase II area. Do NOT discharge from procedure sedation or Phase 1 until post- sedation evaluation note is complete by procedure /sedation MD Sedation Discharge Instructions to be given to the patient at discharge to home.
[2021-06-29] MEDS ORDERED: TPN/PPN CONSULT PHARMACY STA (11:24)
[2021-06-29] MEDS ORDERED: TPN/PPN CONSULT PHARMACY PRN (12:01)
[2021-06-29] MEDS ORDERED: THIAMINE HCL 100 MG TAB PO ONE (13:15)
--- NOTE | 2021-06-29 13:22 | XRay Report ---
XR chest 1V portable CLINICAL HISTORY: r/o complication TECHNIQUE: Single frontal radiograph of the chest was obtained. Comparison: None available at the time of this dictation. FINDINGS: Right venous catheter tip is in the upper SVC. The cardiomediastinal silhouette is normal. The lungs are clear. No evidence of pleural effusion or pneumothorax. IMPRESSION: No acute chest disease. ACT 112: Negative or not required by law. Electronically signed by: Nirmal Lopez M.D. 06/29/2021 1:21 PM
--- NOTE | 2021-06-29 14:08 | Pharmacy Report ---
Pharmacy PN Initial Consult - Date of Service June 29, 2021 - Scope Pharmacy has been consulted to manage parenteral nutrition orders and order appropriate labs. As part of the Nutrition Support Team guidelines, pharmacy will work in conjunction with dietary when determining the patients caloric needs. - Subjective The patient is a 25 year old F admitted on 06/23/21 16:59 for PORT INFECTION. Patient is to receive parenteral nutrition for malnutrition, on chronic TPN at home. - Objective Height: 5 ft 3 in Weight: 46 kg Intake & Output (Last 24Hrs): Intake & Output 06/27/21 06/28/21 06/29/21 06/30/21 06:59 06:59 06:59 06:59 Intake Total 2398 / 2398 2729.084 / 2729.084 3475.833 / 3475.833 375.000 / 375.000 Output Total 0 / 0 Balance 2398 / 2398 2729.084 / 2729.084 3475.833 / 3475.833 375.000 / 375.000 Weight 46.4 kg 46 kg 46 kg 46 kg Laboratory Data (Last 24 Hrs):: 06/29/21 05:54 Sodium 145 Potassium 3.1 L Chloride 112 H Carbon Dioxide 27 BUN 3 L Creatinine 0.64 Glucose 100 H Calcium 8.7 Phosphorus 3.5 Nutrition Assessment:: Please refer to the Notes section of the EMR for the most recent estimator printing note. - Plan For day 1 of PN administration, the following will be ordered: Macronutrients 1000 ml of Clinimix 8%/14% Amino acids 80 grams/day Dextrose 140 grams/day Lipids 50 grams/day (Clinolipid 20%) Micronutrients Potassium phosphate 15 mMol Potassium acetate 20 mEq Magnesium sulfate 4.06 mEq Multivitamins 10 mL Trace Elements 10 mL Additional additives: thiamine 100mg PO Total volume 1027 mL to be infused over 24 hrs will provide 1296 kcal/day Labs to be ordered per PN order protocol Pharmacy will follow and adjust parenteral nutrition orders on a daily basis. Thank you.
[2021-06-29] MEDS ORDERED: DEXTROSE 10% 1,000 ML IV PRN (16:00)
[2021-06-29] MEDS ORDERED: CLINOLIPID 20% IV FAT EMULSION 250 ML IV SCH (16:00)
[2021-06-29] MEDS ORDERED: AMINO ACID 8% IV SCH (16:00)
[2021-06-29] MEDS ORDERED: CENTRAL TPN IV SCH (16:00)
[2021-06-29] MEDS ORDERED: [UNRECOGNIZED DRUG - OTHER] IV SCH (16:00)
--- NOTE | 2021-06-29 16:04 | Hospitalist Progress Note ---
Date of Service June 29, 2021 Assessment & Plan (1) Fungemia: (2) Severe malnutrition: (3) Jaqui-Danlos disease: (4) On total parenteral nutrition (TPN): Plan: (1) Fungemia: -Patient presented back to the ED after blood cultures from 06/22/21 became positive for yeast, not Sarah albicans. Identified by lab as Sarah T ropicalis on 06/27 - Patient had a right chest tunneled catheter placed on 05/30 at [facility] for TPN administration. Patient previously on tube feeds through GJ tube however became intolerant. -Patient afebrile since admission, hemodynamically stable DC IV caspofungin 06/23-06/27, patient initiated on fluconazole for systemic candidiasis for the rest of the duration of total of 14 days therapy. Echocardiogram is within normal limits. Blood cultures from 06/23 and 06/25 are negative so far. Chest port removed by surgery on 06/24; 06/29 right-sided Jere catheter placed by vascular team. Ethanol lock for catheter upon discharge. Continue with antifungal therapy for total of 2 weeks. 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 She is under the care of a bariatric surgeon in [place] who recently admitted her for hypoglycemia and malnutrition. She was placed on TPN after J-tube feeds were leading to malnutrition. She presents to [facility] with fungemia. Port was removed 06/24 and repeat cultures has been negative so far. She remains on antifungal as above and is afebrile and doing well. Relative hypotension is noted with h/o POTS. We will continue supportive care efforts. Pain meds or antiemetics as tolerated. Continue reassurance. TPN resumed 06/29 after the placement of central catheter. (3) Severe malnutrition: -Longstanding history of GI issues, has had extensive work-up completed. Patient is TPN/tube feed dependent due to multiple food intolerances and chronic nausea and abdominal pain. -Patient had a right chest tunneled catheter placed on 05/30 at [facility] for TPN administration. Patient previously on tube feeds through GJ tube however became intolerant. -Patient reports she does take a few bites of food per day. Full liquid diet ordered, however this was changed as she has a milk allergy. -Water flushes through GJ tube with these needing to be 20 cc or less. -06/29 R Jere Cath --> TPN resumed 06/29 --> Lytes replaced and normal prior to starting TPN---> Watch for lytes in AM, closely monitor for refeeding syndrome. -Take phosphorus and potassium about 6 to 8 hours after starting TPN, if K less than 3 or phosphorus less than 1.6, hold TPN until replaced and normal. -Patient will need triglyceride, BMP, magnesium, phosphorus on day 1 of discharge, repeat BMP/magnesium/phosphorus on day 3 and 1 week after worse upon discharge. Discussed with her nutrition Dr. (Dr. Reaves) Over the phone 06/28. Updated 06/29. (4) POTS (postural orthostatic tachycardia syndrome): -Continue Florinef per home regimen. (5) Jaqui-Danlos disease: Chronic. (6) Chronic pain: Continue Lyrica per home regimen. (7) DVT prophylaxis: -SCDs, ambulate Full code Disposition-can likely be discharged tomorrow if no new issues arise, CM to assist with DC planning. ~CM working on DIGESTER OPERATOR HELPER ~Patient will need IV fluconazole 400 mg daily up to 07/07/2021. ~Patient will need triglyceride, BMP, magnesium, phosphorus on day 1 of discharge, repeat BMP/magnesium/phosphorus on day 3 and 1 week after worse upon discharge. ~Ethanol lock for the catheter upon discharge. ~Patient will need TPN upon discharge. ~Prescription for TPN and fluconazole provided. 06/28: I was called during the day to evaluate the patient as she was crying when IV team arrived to place a PICC line on her. Upon discussion, patient reported not feeling confident about IV team placing PICC line in her. Discussed the matter and concerns with the patient and her parents over the phone, presented several options including option of keeping US guided peripheral line in place for IV antifungal and single-lumen PICC line that would be easier to get through her small caliber veins. Patient and her family reluctant. They would like doctors to place PICC line in her. Talked with surgery and then with vascular surgery regarding PICC line versus Chao catheter placement. Then had a follow-up discussion with the family, they agreed to go with Chao catheter as there was no doctor team that would do PICC line in the hospital. Case discussed with the charge nurse as well. Admission and Anticipated Discharge Date Admission Date: June 23, 2021 Subjective Patient was lying in bed, on room air, sleeping, NAD, no new acute events overnight. Patient got right Jere catheter placed today. Patient reports ongoing belly pain when trying to feed herself. Patient has minimal appetite and reports feeling weak and dizzy-->continuing. Patient denies fever/headache/chills/dizziness/sore throat/chest pain/palpitations/belly pain when not eating/other review of symptoms. Physical Exam Physical Exam: GENERAL: Alert and oriented x3. NAD, on RA. lean and thin looking HEENT: No pallor, no icterus. Pupils equal, round and reactive to light. Oral mucosa moist. NECK: No JVD, no neck masses. HEART: S1 and S2 heard. Regular rate and rhythm. No murmur, no gallop. RESPIRATORY SYSTEM: Normal AP diameter. No accessory muscle use. No wheezing, no crackles. ABDOMEN: Soft, bowel sounds present, nontender, no distention. G-J tube insitu w/ no surrounding erythema/drainage/tenderness CENTRAL NERVOUS SYSTEM: No facial droop. Speech is clear. Obeys simple commands. Moves extremities. EXTREMITIES: No edema, no erythema seen. Results & Data Results & Data ([facility]) Vital Signs (Past 12 Hours) Vital Signs Temp Pulse Pulse Resp BP BP Pulse Ox 06/29/21 15:32 36.6 C 78 18 106/72 100 06/29/21 14:30 89 17 111/76 98 06/29/21 13:30 85 17 105/84 97 06/29/21 12:30 89 17 111/76 98 06/29/21 12:27 73 17 97/64 L 96 06/29/21 11:30 65 16 104/75 96 06/29/21 11:15 36.6 C 66 17 105/73 95 06/29/21 11:00 78 18 93/68 L 98 06/29/21 10:41 36.6 C 73 18 100/67 97 06/29/21 10:20 76 16 108/78 100 06/29/21 10:15 81 16 108/82 100 06/29/21 10:10 75 16 108/78 100 06/29/21 10:05 78 16 107/70 100 06/29/21 10:00 69 16 121/72 100 06/29/21 09:46 36.8 C 76 18 113/81 99 06/29/21 09:26 72 06/29/21 07:11 36.7 C 77 16 107/73 98 06/29/21 04:21 36.7 C 76 18 101/68 97
[2021-06-29] MEDS: FLUCONAZOLE 200 MG/100 ML BAG IV SCH ×2 (16:23→17:26)
[2021-06-29] MEDS: ONDANSETRON 4 MG OD TAB PO PRN (20:57)
[2021-06-29] MEDS ORDERED: STOP CLINOLIPID ONE (22:00)
[2021-06-29 23:42] LABS: Potassium 3.2 mmol/L (3.5-5.1)
[2021-06-29 23:58] LABS: Phosphorus 2.6 mg/dl (2.5-4.9)
[2021-06-30] MEDS: TUBE FEEDING WATER FLUSH GT SCH ×4 (02:30→20:07)
[2021-06-30] MEDS ORDERED: POTASSIUM CHLORIDE CRTAB 20 MEQ TABCR PO STA (02:41)
[2021-06-30 03:18] LABS: Magnesium 1.7 mg/dl (1.8-2.4)
[2021-06-30] MEDS: POTASSIUM CHLORIDE / WTR 10 MEQ/100 ML PLCT IV SCH ×4 (03:23→05:46)
[2021-06-30 06:43] LABS: Calcium 9.1 mg/dl (8.5-10.1); Creatinine Clr Calc Pharmacy 96.9 ml/min; Est GFR (African American) 141.5 ml/min; Est GFR (Non-African American) 122.1 ml/min; Magnesium 2.1 mg/dl (1.8-2.4); Phosphorus 3.4 mg/dl (2.5-4.9)
[2021-06-30] MEDS: FLUDROCORTISONE ACETATE 0.1 MG TAB PO SCH (10:16)
[2021-06-30] MEDS: PANTOprazole 40 MG TAB PO SCH ×2 (10:16→20:01)
[2021-06-30] MEDS: THIAMINE HCL 100 MG TAB PO SCH (10:16)
[2021-06-30] MEDS: MONTELUKAST SODIUM 10 MG TABLET PO SCH (10:16)
[2021-06-30] MEDS: busPIRone 5 MG TAB PO SCH ×2 (10:16→20:02)
[2021-06-30] MEDS: FAMOTIDINE 20 MG TAB PO SCH ×2 (10:16→20:01)
[2021-06-30] MEDS: LORATADINE 10 MG TAB PO SCH (10:16)
[2021-06-30] MEDS: PREGABALIN 50 MG CAP PO SCH ×2 (10:19→20:01)
[2021-06-30] MEDS ORDERED: AMINO ACID 8% IV SCH (16:00)
[2021-06-30] MEDS ORDERED: CENTRAL TPN IV SCH (16:00)
[2021-06-30] MEDS ORDERED: CLINOLIPID 20% IV FAT EMULSION 250 ML IV SCH (16:00)
[2021-06-30] MEDS ORDERED: [UNRECOGNIZED DRUG - OTHER] IV SCH (16:00)
[2021-06-30] MEDS: FLUCONAZOLE 200 MG/100 ML BAG IV SCH ×2 (16:12→17:18)
--- NOTE | 2021-06-30 17:35 | Hospitalist Progress Note ---
Date of Service June 30, 2021 Assessment & Plan (1) Fungemia: (2) Severe malnutrition: (3) Jaqui-Danlos disease: (4) On total parenteral nutrition (TPN): Plan: (1) Fungemia: -Patient presented back to the ED after blood cultures from 06/22/21 became positive for yeast, not Sarah albicans. Identified by lab as Sarah T ropicalis on 06/27 - Patient had a right chest tunneled catheter placed on 05/30 at [facility] for TPN administration. Patient previously on tube feeds through GJ tube however became intolerant. -Patient afebrile since admission, hemodynamically stable DC IV caspofungin 06/23-06/27, patient initiated on fluconazole for systemic candidiasis for the rest of the duration of total of 14 days therapy. Echocardiogram is within normal limits. Blood cultures from 06/23 and 06/25 are negative so far. Chest port removed by surgery on 06/24; 06/29 right-sided Jere catheter placed by vascular team. Ethanol lock for catheter upon discharge. Continue with antifungal therapy for total of 2 weeks. 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 She is under the care of a bariatric surgeon in [place] who recently admitted her for hypoglycemia and malnutrition. She was placed on TPN after J-tube feeds were leading to malnutrition. She presents to [facility] with fungemia. Port was removed 06/24 and repeat cultures has been negative so far. She remains on antifungal as above and is afebrile and doing well. Relative hypotension is noted with h/o POTS. We will continue supportive care efforts. Pain meds or antiemetics as tolerated. Continue reassurance. TPN resumed 06/29 after the placement of central catheter. (3) Severe malnutrition: -Longstanding history of GI issues, has had extensive work-up completed. Patient is TPN/tube feed dependent due to multiple food intolerances and chronic nausea and abdominal pain. -Patient had a right chest tunneled catheter placed on 05/30 at [facility] for TPN administration. Patient previously on tube feeds through GJ tube however became intolerant. -Patient reports she does take a few bites of food per day. Full liquid diet ordered, however this was changed as she has a milk allergy. -Water flushes through GJ tube with these needing to be 20 cc or less. -06/29 R Jere Cath --> TPN resumed 06/29 --> Lytes replaced and normal prior to starting TPN---> follow-up electrolytes WNL. Continue to monitor electrolytes. -Patient will need triglyceride, BMP, magnesium, phosphorus on tomorrow, repeat BMP/magnesium/phosphorus on day 3 and 1 week after worse upon discharge. Discussed with her nutrition Dr. (Dr. Reaves) Over the phone 06/28. Updated 06/29. (4) POTS (postural orthostatic tachycardia syndrome): -Continue Florinef per home regimen. (5) Jaqui-Danlos disease: Chronic. (6) Chronic pain: Continue Lyrica per home regimen. (7) DVT prophylaxis: -SCDs, ambulate Full code Disposition-can likely be discharged tomorrow if no new issues arise, CM to assist with DC planning. ~CM working on DIRECTOR LAW ENFORCEMENT ~Patient will need IV fluconazole 400 mg daily up to 07/07/2021. ~Patient will need triglyceride, BMP, magnesium, phosphorus on day 1 of discharge, repeat BMP/magnesium/phosphorus on day 3 and 1 week after worse upon discharge. ~Ethanol lock for the catheter upon discharge. ~Patient will need TPN upon discharge. ~Prescription for TPN and fluconazole provided. 06/28: I was called during the day to evaluate the patient as she was crying when IV team arrived to place a PICC line on her. Upon discussion, patient reported not feeling confident about IV team placing PICC line in her. Discussed the matter and concerns with the patient and her parents over the phone, presented several options including option of keeping US guided peripheral line in place for IV antifungal and single-lumen PICC line that would be easier to get through her small caliber veins. Patient and her family reluctant. They would like doctors to place PICC line in her. Talked with surgery and then with vascular surgery regarding PICC line versus Chao catheter placement. Then had a follow-up discussion with the family, they agreed to go with Chao catheter as there was no doctor team that would do PICC line in the hospital. Case discussed with the charge nurse as well. Admission and Anticipated Discharge Date Admission Date: June 23, 2021 Subjective Patient was lying in bed, on room air, NAD, no new acute events overnight. Patient reports eating a few bites of Jell-O today. patient reports improvement in her dizziness and headache. Patient denies fever/headache/chills/dizziness/sore throat/chest pain/palpitations/belly pain when not eating/other review of symptoms. Physical Exam Physical Exam: GENERAL: Alert and oriented x3. NAD, on RA. lean and thin looking HEENT: No pallor, no icterus. Pupils equal, round and reactive to light. Oral mucosa moist. NECK: No JVD, no neck masses. HEART: S1 and S2 heard. Regular rate and rhythm. No murmur, no gallop. RESPIRATORY SYSTEM: Normal AP diameter. No accessory muscle use. No wheezing, no crackles. ABDOMEN: Soft, bowel sounds present, nontender, no distention. G-J tube insitu w/ no surrounding erythema/drainage/tenderness CENTRAL NERVOUS SYSTEM: No facial droop. Speech is clear. Obeys simple commands. Moves extremities. EXTREMITIES: No edema, no erythema seen. Results & Data Results & Data ([facility]) Vital Signs (Past 12 Hours) Vital Signs Temp Pulse Pulse Resp BP Pulse Ox 06/30/21 15:33 37.0 C 90 18 89/53 L 96 06/30/21 11:54 36.8 C 75 18 94/57 L 96 06/30/21 11:15 88 06/30/21 07:49 36.8 C 76 18 98/64 L 99
[2021-06-30] MEDS ORDERED: STOP CLINOLIPID ONE (22:00)
[2021-07-01] MEDS: TUBE FEEDING WATER FLUSH GT SCH ×5 (02:22→22:48)
[2021-07-01 06:52] LABS: BUN Creatinine Ratio 25.2 (10-20); Calcium 9.3 mg/dl (8.5-10.1); Creatinine Clr Calc Pharmacy 101.2 ml/min; Est GFR (African American) 142.9 ml/min; Est GFR (Non-African American) 123.3 ml/min; Magnesium 2.3 mg/dl (1.8-2.4); Potassium 3.2 mmol/L (3.5-5.1)
[2021-07-01] MEDS: LORATADINE 10 MG TAB PO SCH (09:02)
[2021-07-01] MEDS: FAMOTIDINE 20 MG TAB PO SCH ×2 (09:02→20:25)
[2021-07-01] MEDS: MONTELUKAST SODIUM 10 MG TABLET PO SCH (09:02)
[2021-07-01] MEDS: busPIRone 5 MG TAB PO SCH ×2 (09:02→20:25)
[2021-07-01] MEDS: PANTOprazole 40 MG TAB PO SCH ×2 (09:02→20:25)
[2021-07-01] MEDS: POTASSIUM CHLORIDE / WTR 10 MEQ/100 ML PLCT IV SCH ×4 (09:02→12:43)
[2021-07-01] MEDS: FLUDROCORTISONE ACETATE 0.1 MG TAB PO SCH (09:02)
[2021-07-01] MEDS: THIAMINE HCL 100 MG TAB PO SCH (09:02)
[2021-07-01] MEDS: PREGABALIN 50 MG CAP PO SCH ×2 (09:10→20:31)
[2021-07-01] MEDS ORDERED: STOP CLINOLIPID ONE ×2 (11:15→22:00)
[2021-07-01] MEDS ORDERED: AMINO ACID 8% IV SCH (16:00)
[2021-07-01] MEDS ORDERED: CLINOLIPID 20% IV FAT EMULSION 250 ML IV SCH (16:00)
[2021-07-01] MEDS ORDERED: CENTRAL TPN IV SCH (16:00)
[2021-07-01] MEDS ORDERED: [UNRECOGNIZED DRUG - OTHER] IV SCH (16:00)
[2021-07-01] MEDS: FLUCONAZOLE 200 MG/100 ML BAG IV SCH ×2 (16:43→17:48)
--- NOTE | 2021-07-01 17:44 | Hospitalist Progress Note ---
Date of Service July 01, 2021 Assessment & Plan (1) Fungemia: (2) Severe malnutrition: (3) Jaqui-Danlos disease: (4) On total parenteral nutrition (TPN): Plan: (1) Fungemia: -Patient presented back to the ED after blood cultures from 06/22/21 became positive for yeast, not Sarah albicans. Identified by lab as Sarah T ropicalis on 06/27 - Patient had a right chest tunneled catheter placed on 05/30 at [facility] for TPN administration. Patient previously on tube feeds through GJ tube however became intolerant. -Patient afebrile since admission, hemodynamically stable DC IV caspofungin 06/23-06/27, patient initiated on fluconazole for systemic candidiasis for the rest of the duration of total of 14 days therapy. Echocardiogram is within normal limits. Blood cultures from 06/23 and 06/25 are negative so far. Chest port removed by surgery on 06/24; 06/29 right-sided Jere catheter placed by vascular team. Ethanol lock for catheter upon discharge. Continue with antifungal therapy for total of 2 weeks. 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 She is under the care of a bariatric surgeon in [place] who recently admitted her for hypoglycemia and malnutrition. She was placed on TPN after J-tube feeds were leading to malnutrition. She presents to [facility] with fungemia. Port was removed 06/24 and repeat cultures has been negative so far. She remains on antifungal as above and is afebrile and doing well. Relative hypotension is noted with h/o POTS. We will continue supportive care efforts. Pain meds or antiemetics as tolerated. Continue reassurance. TPN resumed 06/29 after the placement of central catheter. (3) Severe malnutrition: -Longstanding history of GI issues, has had extensive work-up completed. Patient is TPN/tube feed dependent due to multiple food intolerances and chronic nausea and abdominal pain. -Patient had a right chest tunneled catheter placed on 05/30 at [facility] for TPN administration. Patient previously on tube feeds through GJ tube however became intolerant. -Patient reports she does take a few bites of food per day. Full liquid diet ordered, however this was changed as she has a milk allergy. -Water flushes through GJ tube with these needing to be 20 cc or less. -06/29 R Jere Cath --> TPN resumed 06/29 --> Lytes replaced and normal prior to starting TPN---> follow-up electrolytes WNL. Continue to monitor electrolytes. -Monitor electrolytes, repeat BMP/magnesium/phosphorus on day 3 and 1 week upon discharge. Discussed with her nutrition Dr. (Dr. Reaves) Over the phone 06/28. Updated 06/29. (4) POTS (postural orthostatic tachycardia syndrome): -Continue Florinef per home regimen. (5) Jaqui-Danlos disease: Chronic. (6) Chronic pain: Continue Lyrica per home regimen. (7) DVT prophylaxis: -SCDs, ambulate Full code Disposition-can likely be discharged tomorrow if no new issues arise, CM to assist with DC planning. CM trying to figure out home health agency for the patient to go with. [facility], [facility] and [facility] denied. 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 ~Patient will need triglyceride, BMP, magnesium, phosphorus on day 1 of discharge, repeat BMP/magnesium/phosphorus on day 3 and 1 week after worse upon discharge. ~Ethanol lock for the catheter upon discharge. ~Patient will need TPN upon discharge. ~Prescription for TPN and fluconazole provided. 06/28: I was called during the day to evaluate the patient as she was crying when IV team arrived to place a PICC line on her. Upon discussion, patient reported not feeling confident about IV team placing PICC line in her. Discussed the matter and concerns with the patient and her parents over the phone, presented several options including option of keeping US guided peripheral line in place for IV antifungal and single-lumen PICC line that would be easier to get through her small caliber veins. Patient and her family reluctant. They would like doctors to place PICC line in her. Talked with surgery and then with vascular surgery regarding PICC line versus Chao catheter placement. Then had a follow-up discussion with the family, they agreed to go with Chao catheter as there was no doctor team that would do PICC line in the hospital. Case discussed with the charge nurse as well. Admission and Anticipated Discharge Date Admission Date: June 23, 2021 Subjective Patient was sitting up in bed, on room air, NAD, no new acute events overnight. Patient reports improvement in her dizziness and headache. Patient denies fever/headache/chills/dizziness/sore throat/chest pain/palpitations/belly pain when not eating/other review of symptoms. No interval change. Physical Exam Physical Exam: GENERAL: Alert and oriented x3. NAD, on RA. lean and thin l ooking HEENT: No pallor, no icterus. Pupils equal, round and reactive to light. Oral mucosa moist. NECK: No JVD, no neck masses. HEART: S1 and S2 heard. Regular rate and rhythm. No murmur, no gallop. RESPIRATORY SYSTEM: Normal AP diameter. No accessory muscle use. No wheezing, no crackles. ABDOMEN: Soft, bowel sounds present, nontender, no distention. G-J tube insitu w/ no surrounding erythema/drainage/tenderness CENTRAL NERVOUS SYSTEM: No facial droop. Speech is clear. Obeys simple commands. Moves extremities. EXTREMITIES: No edema, no erythema seen. Results & Data Results & Data ([facility]) Vital Signs (Past 12 Hours) Vital Signs Temp Pulse Pulse Resp BP Pulse Ox 07/01/21 15:47 36.7 C 90 18 101/71 98 07/01/21 11:13 36.5 C 63 18 94/59 L 98 07/01/21 07:14 36.6 C 73 17 109/70 97
[2021-07-01] MEDS: ONDANSETRON 4 MG OD TAB PO PRN (20:32)
[2021-07-02] MEDS: FAMOTIDINE 20 MG TAB PO SCH (08:02)
[2021-07-02] MEDS: THIAMINE HCL 100 MG TAB PO SCH (08:02)
[2021-07-02] MEDS: MONTELUKAST SODIUM 10 MG TABLET PO SCH (08:03)
[2021-07-02] MEDS: LORATADINE 10 MG TAB PO SCH (08:05)
[2021-07-02] MEDS: PREGABALIN 50 MG CAP PO SCH (08:05)
[2021-07-02] MEDS: busPIRone 5 MG TAB PO SCH (08:05)
[2021-07-02] MEDS: PANTOprazole 40 MG TAB PO SCH (08:05)
[2021-07-02] MEDS: FLUDROCORTISONE ACETATE 0.1 MG TAB PO SCH (08:05)
[2021-07-02] MEDS: TUBE FEEDING WATER FLUSH GT SCH ×2 (08:06→13:55)
[2021-07-02] MEDS: ONDANSETRON 4 MG OD TAB PO PRN (08:07)
[2021-07-02 09:24] LABS: BUN Creatinine Ratio 22.5 (10-20); Calcium 9.3 mg/dl (8.5-10.1); Est GFR (African American) 142.9 ml/min; Est GFR (Non-African American) 123.3 ml/min; Magnesium 2.2 mg/dl (1.8-2.4); Phosphorus 3.6 mg/dl (2.5-4.9); Potassium 3.7 mmol/L (3.5-5.1)
[2021-07-02] MEDS: FLUCONAZOLE 200 MG/100 ML BAG IV SCH ×2 (15:34→16:48)
[2021-07-02 15:52] VITALS: BP 98/66; TEMP 97.7; O2SAT 98
[2021-07-02] MEDS ORDERED: AMINO ACID 8% IV SCH (16:00)
[2021-07-02] MEDS ORDERED: CENTRAL TPN IV SCH (16:00)
[2021-07-02] MEDS ORDERED: [UNRECOGNIZED DRUG - OTHER] IV SCH (16:00)
[2021-07-02] MEDS ORDERED: CLINOLIPID 20% IV FAT EMULSION 250 ML IV SCH (16:00)
--- NOTE | 2021-07-02 16:39 | Hospitalist Progress Note ---
Date of Service July 02, 2021 Assessment & Plan (1) Fungemia: (2) Severe malnutrition: (3) Jaqui-Danlos disease: (4) On total parenteral nutrition (TPN): Plan: (1) Fungemia: -Patient presented back to the ED after blood cultures from 06/22/21 became positive for yeast, not Sarah albicans. Identified by lab as Sarah T ropicalis on 06/27 - Patient had a right chest tunneled catheter placed on 05/30 at [facility] for TPN administration. Patient previously on tube feeds through GJ tube however became intolerant. -Patient afebrile since admission, hemodynamically stable DC IV caspofungin 06/23-06/27, patient initiated on fluconazole for systemic candidiasis for the rest of the duration of total of 14 days therapy. Echocardiogram is within normal limits. Blood cultures from 06/23 and 06/25 are negative so far. Chest port removed by surgery on 06/24; 06/29 right-sided Jere catheter placed by vascular team. Ethanol lock for catheter upon discharge. Continue with antifungal therapy for total of 2 weeks. 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 She is under the care of a bariatric surgeon in [place] who recently admitted her for hypoglycemia and malnutrition. She was placed on TPN after J-tube feeds were leading to malnutrition. She presents to [facility] with fungemia. Port was removed 06/24 and repeat cultures has been negative so far. She remains on antifungal as above and is afebrile and doing well. Relative hypotension is noted with h/o POTS. We will continue supportive care efforts. Pain meds or antiemetics as tolerated. Continue reassurance. TPN resumed 06/29 after the placement of central catheter. (3) Severe malnutrition: -Longstanding history of GI issues, has had extensive work-up completed. Patient is TPN/tube feed dependent due to multiple food intolerances and chronic nausea and abdominal pain. -Patient had a right chest tunneled catheter placed on 05/30 at [facility] for TPN administration. Patient previously on tube feeds through GJ tube however became intolerant. -Patient reports she does take a few bites of food per day. Full liquid diet ordered, however this was changed as she has a milk allergy. -Water flushes through GJ tube with these needing to be 20 cc or less. -06/29 R Jere Cath --> TPN resumed 06/29 --> Lytes replaced and normal prior to starting TPN---> follow-up electrolytes WNL. Continue to monitor electrolytes. -Monitor electrolytes, repeat BMP/magnesium/phosphorus on day 3 and 1 week upon discharge. Discussed with her nutrition Dr. (Dr. Reaves) Over the phone 06/28. Updated 06/29. (4) POTS (postural orthostatic tachycardia syndrome): -Continue Florinef per home regimen. (5) Jaqui-Danlos disease: Chronic. (6) Chronic pain: Continue Lyrica per home regimen. (7) DVT prophylaxis: -SCDs, ambulate Full code Disposition-can likely be discharged tomorrow if no new issues arise, CM to assist with DC planning. CM trying to figure out home health agency for the patient to go with. student services representative have denied so far, currently CM working on [employer] set up. ~CM working on RECRUITING TEAM LEAD ~Patient will need IV fluconazole 400 mg daily up to 07/07/2021. ~Patient will need triglyceride, BMP, magnesium, phosphorus on day 1 of discharge, repeat BMP/magnesium/phosphorus on day 3 and 1 week upon discharge. ~Ethanol lock for the catheter upon discharge. ~Patient will need TPN upon discharge. ~Prescription for TPN and fluconazole provided. 06/28: I was called during the day to evaluate the patient as she was crying when IV team arrived to place a PICC line on her. Upon discussion, patient reported not feeling confident about IV team placing PICC line in her. Discussed the matter and concerns with the patient and her parents over the phone, presented several options including option of keeping US guided peripheral line in place for IV antifungal and single-lumen PICC line that would be easier to get through her small caliber veins. Patient and her family reluctant. They would like doctors to place PICC line in her. Talked with surgery and then with vascular surgery regarding PICC line versus Chao catheter placement. Then had a follow-up discussion with the family, they agreed to go with Chao catheter as there was no doctor team that would do PICC line in the hospital. Case discussed with the charge nurse as well. Admission and Anticipated Discharge Date Admission Date: June 23, 2021 Subjective Patient was sitting up in bed, on room air, NAD, no new acute events overnight. Patient reports no dizziness and headache. Patient denies fever/headache/chills/dizziness/sore throat/chest pain/palpitations/belly pain when not eating/other review of symptoms. No interval change. Physical Exam Physical Exam: GENERAL: Alert and oriented x3. NAD, on RA. lean and thin looking HEENT: No pallor, no icterus. Pupils equal, round and reactive to light. Oral mucosa moist. NECK: No JVD, no neck masses. HEART: S1 and S2 heard. Regular rate and rhythm. No murmur, no gallop. RESPIRATORY SYSTEM: Normal AP diameter. No accessory muscle use. No wheezing, no crackles. ABDOMEN: Soft, bowel sounds present, nontender, no distention. G-J tube insitu w/ no surrounding erythema/drainage/tenderness CENTRAL NERVOUS SYSTEM: No facial droop. Speech is clear. Obeys simple commands. Moves extremities. EXTREMITIES: No edema, no erythema seen. Results & Data Results & Data ([facility]) Vital Signs (Past 12 Hours) Vital Signs Temp Pulse Pulse Resp BP Pulse Ox 07/02/21 15:51 36.5 C 94 H 18 98/66 L 98 07/02/21 15:00 95 H 07/02/21 12:07 36.8 C 77 17 95/58 L 97 07/02/21 08:05 82 07/02/21 07:19 36.6 C 77 17 90/58 L 97
[2021-07-02 18:31] VITALS: PULSE 78
--- NOTE | 2021-07-02 19:00 | Discharge Summary ---
Date of Service July 02, 2021 Admission HPI Per Admitting Provider 25-year-old female with PMH Jaqui-Danlos, POTS, chronic pain syndrome, chronic GI issues with inability to tolerate p.o. TPN and tube feed dependent, severe protein calorie malnutrition, and other problems listed below who presents to the ED due to having positive blood cultures. Patient had a right chest tunneled catheter placed on 05/30 at [facility] for TPN administration. Patient previously on tube feeds through GJ tube however became intolerant. 2 days ago, patient reports she developed fever and was generally not feeling well. She was seen in the ED yesterday and was febrile however work-up was u nremarkable. Patient was discharged on cefdinir. Today, blood cultures from yesterday resulted as yeast not Sarah albicans. Patient received a phone call to come back to the ED. Patient denies having any additional fevers. She struggles with chronic nausea and abdominal pain. No chest pain or shortness of breath. Denies lightheadedness, dizziness, diaphoresis, syncopal events. Heart rate chronically runs in the low 100s due to underlying POTS. No urinary symptoms. In the ED, patient is hemodynamically stable. Labs show leukopenia with WBC 2.5K, other labs unremarkable. Patient was given IV caspofungin and IVF. Admission Exam Per Admitting Provider General: No acute distress and not ill appearing. Thin with bony prominences Eyes: PERRL, conjunctivae normal, not pale, anicteric sclerae, EOM intact bilaterally ENMT: External ear and nose normal, oropharynx normal Respiratory: Normal respiratory effort, no respiratory distress, lungs clear to auscultation, no crackles and no wheezes Cardiovascular: Tachycardia (chronic). Heart Sounds: normal S1 and normal S2; Extremities: no pedal edema Chest (Breasts): chest port on anterior right upper chest. No erythema or purulence Gastrointestinal (Abdomen): Abdomen is not distended, soft, non-tender to palpation, no guarding, no palpable hepatosplenomegaly, normal bowel sounds PEG tube in place Musculoskeletal: No cyanosis or clubbing, all extremities motor strength 5/5 Neurologic: Alert and oriented x 3, No focal weakness, sensation grossly intact Psychiatric: Alert and oriented x 3, euthymic affect, no depressed affect Principal Diagnosis Fungemia Gastrointestinal dysmotility Severe malnutrition on TPN Discharge Exam GENERAL: Alert and oriented x3. NAD, on RA. lean and thin looking HEENT: No pallor, no icterus. Pupils equal, round and reactive to light. Oral mucosa moist. NECK: No JVD, no neck masses. HEART: S1 and S2 heard. Regular rate and rhythm. No murmur, no gallop. RESPIRATORY SYSTEM: Normal AP diameter. No accessory muscle use. No wheezing, no crackles. ABDOMEN: Soft, bowel sounds present, nontender, no distention. G-J tube insitu w/ no surrounding erythema/drainage/tenderness CENTRAL NERVOUS SYSTEM: No facial droop. Speech is clear. Obeys simple commands. Moves extremities. EXTREMITIES: No edema, no erythema seen. Discharge Data Allergies Allergy/AdvReac Type Severity Reaction Status Date / Time prochlorperazine Allergy Severe Anaphylaxis Verified 06/22/21 10:22 [From Compazine] pollen extracts Allergy Mild ITCHY Verified 06/24/21 07:54 EYES, SNEEZING, CONGESTION gluten Allergy Unknown Unknown Verified 06/24/21 07:54 peanut Allergy Unknown Unknown Verified 06/24/21 07:54 tree nut Allergy Unknown Unknown Verified 06/24/21 07:54 adhesive Allergy red,swollen Verified 06/22/21 10:22 Latex, Natural Rubber AdvReac Intermediate REDDENED Verified 06/22/21 10:22 AND ITCHINESS Consultations 06/23/21 16:40 ED Decision to Admit Stat 06/23/21 17:33 Consult Ophthalmology Routine 06/23/21 19:47 Consult General Surgery Routine Consult Infectious Diseases Routine 06/28/21 12:39 Consult Vascular Surgery Routine Procedures Performed Operation Date: 06/24/21 07:30 Actual Procedures p Removal of Right Tunneled Central Line in Internal Jugular Catheter(Right) - Hector Tracy MD, FACS Operation Date: 06/29/21 10:00 Actual Procedures p Insertion of Jere Catheter, right internal jugular approach, ultrasound localization of right internal jugular vein, fluroscopy for positioning, moderate sedation [id number](Right) - Larry Dick MD Ordered Studies 06/29/21 09:40 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 --> TPN and tube feed dependent, severe protein calorie malnutrition presented 06/23 to the ED due to having positive blood cultures. Patient had a right chest tunneled catheter placed on 05/30 at [facility] for TPN administration. The right chest tunneled catheter was removed and was managed for the following: (1) Fungemia: -Patient presented back to the ED after blood cultures from 06/22/21 became positive for yeast, not Sarah albicans. Identified by lab as Sarah T ropicalis on 06/27 - Patient had a right chest tunneled catheter placed on 05/30 at [facility] for TPN administration. Patient previously on tube feeds through GJ tube however became intolerant. -Patient afebrile since admission, hemodynamically stable DC IV caspofungin 06/23-06/27, patient initiated on fluconazole for systemic candidiasis for the rest of the duration of total of 14 days therapy. Echocardiogram is within normal limits. Blood cultures from 06/23 and 06/25 are negative so far. Chest port removed by surgery on 06/24; 06/29 right-sided Jere catheter placed by vascular team. Ethanol lock for catheter upon discharge. Continue with antifungal therapy for total of 2 weeks. 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 She is under the care of a bariatric surgeon in [place] who recently admitted her for hypoglycemia and malnutrition. She was placed on TPN after J-tube feeds were leading to malnutrition. She presents to [facility] with fungemia. Port was removed 06/24 and repeat cultures has been negative so far. She remains on antifungal as above and is afebrile and doing well. Relative hypotension is noted with h/o POTS. We will continue supportive care efforts. Pain meds or antiemetics as tolerated. Continue reassurance. TPN resumed 06/29 after the placement of central catheter. (3) Severe malnutrition: -Longstanding history of GI issues, has had extensive work-up completed. Patient is TPN/tube feed dependent due to multiple food intolerances and chronic nausea and abdominal pain. -Patient had a right chest tunneled catheter placed on 05/30 at [facility] for TPN administration. Patient previously on tube feeds through GJ tube however became intolerant. -Patient reports she does take a few bites of food per day. Full liquid diet ordered, however this was changed as she has a milk allergy. -Water flushes through GJ tube with these needing to be 20 cc or less. -06/29 R Jere Cath --> TPN resumed 06/29 --> Lytes replaced and normal prior to starting TPN---> follow-up electrolytes WNL. Continue to monitor electrolytes. -Monitor electrolytes, repeat BMP/magnesium/phosphorus on day 3 and 1 week upon discharge. Discussed with her nutrition Dr. (Dr. Reaves) Over the phone 06/28. Updated 06/29. (4) POTS (postural orthostatic tachycardia syndrome): -Continue Florinef per home regimen. (5) Jaqui-Danlos disease: Chronic. (6) Chronic pain: Continue Lyrica per home regimen. (7) DVT prophylaxis: -SCDs, ambulate Full code 06/28: I was called during the day to evaluate the patient as she was crying when IV team arrived to place a PICC line on her. Upon discussion, patient reported not feeling confident about IV team placing PICC line in her. Discussed the matter and concerns with the patient and her parents over the phone, presented several options including option of keeping US guided peripheral line in place for IV antifungal and single-lumen PICC line that would be easier to get through her small caliber veins. Patient and her family reluctant. They would like doctors to place PICC line in her. Talked with surgery and then with vascular surgery regarding PICC line versus Chao catheter placement. Then had a follow-up discussion with the family, they agreed to go with Chao catheter as there was no doctor team that would do PICC line in the hospital. Case discussed with the charge nurse as well. Patient being discharged to home with home health with following instruction at the point of discharge: Follow-up with your primary care physician within 1 week time. Follow-up with your machine stripper Dr. Reaves as an outpatient in 1 to 2 weeks time. At the point of discharge you are being given prescription for TPN and IV fluconazole. You will need to continue IV fluconazole up to 07/07/2021. You will have to follow-up with [facility] for your IV fluconazole infusion. Continue with ethanol lock as taught by the IV team. Get your blood work [BMP, magnesium, phosphorus] done on day 3 and 1 week upon discharge. Total Time Total Time Spent Total Time Spent (In Minutes): 45 Discharge Plan Discharge Items Patient Disposition: Home - Home Health Services Reason For Visit: PORT INFECTION Discharge Diagnosis: Fungemia Gastrointestinal dysmotility Severe malnutrition on TPN Activity: Resume your previous activity Non-emergency contact: Primary Care Provider Call non-emergency contact if: you have any medication questions, your symptoms worsen, you have a fever and your rectal temperature is above 100.4 Follow-up/Referrals: Meek Lopez MD [Primary Care Provider] - (Date & Time 07/04/2021 11:00 AM Provider Chaz Garcia MD [facility] ) Diet: Other - See Diet Comment Diet Comment: TPN, a/c to your machine stripper as outpatient. Addtl Attending Provider Instructions: Follow-up with your primary care physician within 1 week time. Follow-up with your machine stripper Dr. Reaves as an outpatient in 1 to 2 weeks time. At the point of discharge you are being given prescription for TPN and IV fluco nazole. You will need to continue IV fluconazole up to 07/07/2021. You will have to follow-up with [facility] for your IV fluconazole infusion. Continue with ethanol lock as taught by the IV team. Get your blood work [BMP, magnesium, phosphorus] done on day 3 and 1 week upon discharge. Pending Studies at Discharge: No Stand-Alone Forms: My [facility] [employer], Smoking Cessation Medications and DC Order Prescriptions: New thiamine HCl (vitamin B1) [Vitamin B-1] 100 mg Tablet 100 mg PO DAILY 7 Days Qty: 7 RF: 0 fluconazole in NaCl (iso-osm) 400 mg/200 mL piggyback 400 mg IV DAILY 5 Days Qty: 1000 RF: 0 Continued buspirone 5 mg tablet 5 mg PO BID RF: 0 ondansetron HCl 8 mg tablet 8 mg PO Q8 PRN (Reason: Nausea) RF: 0 famotidine 20 mg tablet 20 mg PO BID RF: 0 omeprazole 20 mg capsule,delayed release(DR/EC) 20 mg PO BID RF: 0 montelukast [Singulair] 10 mg Tablet 10 mg PO DAILY RF: 0 gabapentin 100 mg capsule 200 mg PO TID RF: 0 fludrocortisone 0.1 mg tablet 0.1 mg PO DAILY RF: 0 loratadine 10 mg Tablet 10 mg PO DAILY RF: 0 pregabalin 50 mg capsule 50 mg PO BID RF: 0 Discontinued cefdinir 300 mg capsule 300 mg PO BID 10 Days Qty: 20 RF: 0 Discharge Orders: Discharge Order (Routine); Ordered 07/02/21 Ordered By: Kelly Rodriguez Admission Data Admit Date/Time: 06/23/21 16:59 Attending Provider: Kelly Rodriguez Admit Provider: Alexus Osei I. Primary Care Provider: Meek Lopez Other Providers: Alexus Osei I. ; Alexi Valladares Salvatore M. ; Tahir Up ; Tiffani Villatoro ; Miles Galeano I. ; Kenny Alcazar II ; Amee Faustin ; Chaz Barajas ; Roger Weaver. ; Larry Dick Other Interventions: Discharge Summary Assessment (RN) Last Done: 07/02/21 18:53
[2021-07-02] MEDS ORDERED: STOP CLINOLIPID ONE (22:00)
== END 2021-07-02 19:00 | disposition home or self-care (01) | DRG 314 ==
LOC: ED 14:55 → EDINP 16:59 → SUATTDRO 16:59 → 2S 19:54
DX: Z91.011 Allergy to milk products; Y71.2 Prosthetic and other implants, materials and accessory cardiovascular devices associated with adverse incidents; R10.13 Epigastric pain; Z91.010 Allergy to peanuts; Z68.1 Body mass index [BMI] 19.9 or less, adult; E43 Unspecified severe protein-calorie malnutrition; Z91.048 Other nonmedicinal substance allergy status; Z88.8 Allergy status to other drugs, medicaments and biological substances; G89.4 Chronic pain syndrome; Z79.899 Other long term (current) drug therapy; Z79.52 Long term (current) use of systemic steroids; Z95.828 Presence of other vascular implants and grafts; T80.211A Bloodstream infection due to central venous catheter, initial encounter; Z91.018 Allergy to other foods; Q79.60 Ehlers-Danlos syndrome, unspecified; B37.7 Candidal sepsis; K59.89 Other specified functional intestinal disorders; Z20.822 Contact with and (suspected) exposure to COVID-19; Z91.040 Latex allergy status; I49.8 Other specified cardiac arrhythmias; Y84.8 Other medical procedures as the cause of abnormal reaction of the patient, or of later complication, without mention of misadventure at the time of the procedure; Z99.89 Dependence on other enabling machines and devices

== ENCOUNTER 2022-05-15 16:45 | Observation (INO) ==
[2022-05-15 17:50] LABS: Hematocrit (blood only) 23.8 % (34.1-44.9); Hemoglobin 7.2 g/dl (12.0-16.0); Mean Corpuscular Hemoglobin 20.6 pg (25.0-34.0); Mean Corpuscular Hgb Conc 30.3 g/dL (32.0-36.0); Mean Corpuscular Volume 68.2 fL (80.0-100.0); Mean Platelet Volume 9.9 fL (9.4-12.3); Platelet Count 324 K/uL (130-400); RDW Coefficient of Variation 17.3 % (11.5-14.5); Red Blood Count 3.49 M/uL (3.93-5.22); White Blood Count 2.54 K/ul (4.8-10.8)
[2022-05-15 18:07] LABS: Albumin Globulin Ratio 1.3 (0.9-2); Albumin Level 4.1 gm/dl (3.4-5.0); BUN Creatinine Ratio 17.5 (10-20); Bilirubin,Total 0.3 mg/dl (0.2-1.0); Calcium 8.7 mg/dl (8.5-10.1); Creatinine Clr Calc Pharmacy 113.9 ml/min; Est GFR (African American) 145.5 ml/min; Est GFR (Non-African American) 125.5 ml/min; Globulin 3.1 gm/dl (2.5-4.0); Potassium 3.7 mmol/L (3.5-5.1); Total Protein 7.2 gm/dl (6.0-8.3)
[2022-05-15 18:13] LABS: INR 1.1 (0.9-1.1); Partial Thromboplastin Time 26.5 Seconds (21.0-31.0); Prothrombin Time 11.7 Seconds (9.0-12.0)
[2022-05-15] MEDS ORDERED: SODIUM CHLORIDE 0.9% 250 ML IV PRN (19:28)
[2022-05-15 19:48] LABS: Reticulocyte % 1.1 % (0.5-2.0); Reticulocytes # 0.04 10^6/uL (0.02-0.10)
--- NOTE | 2022-05-15 20:09 | Emergency Department Note ---
Impression & Plan Symptomatic anemia, Iron deficiency, Fatigue ED Provider Note NAME: RICK JENKINS AGE: 26 SEX: F ARRIVES VIA: Walk-In INFORMANT: Patient ED PROVIDER(S): Alcides Lilly MD CHIEF COMPLAINT: anemia, referred. PLAN: Disposition: Admit MEDICAL DECISION MAKING: The patient is a pleasant 26-year-old woman with a past medical history of Jaqui-Danlos syndrome, GI dysmotility on chronic TPN, chronic pain, POTS who presents to the emergency department referred by her PCPs office for outpatient blood work that showed a hemoglobin of 6.8 which has been downtrending from a hemoglobin of 8 in February. The patient reports she has never had issues with anemia in the past. She reports feeling some fatigue but found it difficult to assess if this was due to something new or her chronic GI issues. She denies any blood in her stool or urine. She reports her menstrual cycle was 2 weeks ago and was normal and not particularly heavy. She denies any fevers, chills, cough, congestion, chest pain or shortness of breath. On arrival the patient no acute distress, afebrile stable vital signs. She exhibits mild pallor. Exam is otherwise unremarkable. WBC 2.5K nonspecific and similar to prior range of values. H/H 7.2/23.8 downtrending from prior values in February. Chemistry without metabolic acidosis. Electrolytes and LFTs without significant abnormality. COVID-19 RNA, JUAN's was negative. Iron studies are consistent with iron deficiency. The patient was consented for blood transfusion and was given 1 unit of PRBCs. Patient agrees with plan for admission for further management. Case was discussed with Dr. Staples, [facility] hospitalist, who will evaluate the patient for admission. Triage Nursing notes reviewed and agree them. Prior medical records reviewed Vital Signs: reviewed and remarkable for no significant abnormalities Differential diagnosis: Infection, dehydration, metabolic abnormality, hypo/hyperglycemia, electrolyte disturbance, anemia, hypoxia, cardiac sources, intracerebral event, toxicologic, neurologic, as well as other pathologies. ER treatment provided: See below. Diagnostics interpreted by me: ECG: Normal sinus rhythm, 97 bpm, no ectopy, no overt ST elevation or depression, QTC 457, QRS 72. Cardiac Monitoring: An order for continuous cardiac monitoring was placed and demonstrated Normal sinus rhythm, 97 bpm, no ectopy. Laboratory studies: See below Imaging studies: See below Consultation(s): Dr. Staples, [facility] hospitalist. HPI: The patient is a pleasant 26-year-old woman with a past medical history of Jaqui-Danlos syndrome, GI dysmotility on chronic TPN, chronic pain, POTS who presents to the emergency department referred by her PCPs office for outpatient blood work that showed a hemoglobin of 6.8 which has been downtrending from a hemoglobin of 8 in February. The patient reports she has never had issues with anemia in the past. She reports feeling some fatigue but found it difficult to assess if this was due to something new or her chronic GI issues. She denies any blood in her stool or urine. She reports her menstrual cycle was 2 weeks ago and was normal and not particularly heavy. She denies any fevers, chills, cough, congestion, chest pain or shortness of breath. ROS: See above HPI for pertinent positives & negatives. A total of 10 systems reviewed and were otherwise negative. VITALS:See Below PHYSICAL EXAMINATION: GENERAL: Awake, alert, fatigued-appearing, in no distress HENT: Normocephalic, atraumatic. Oropharynx unremarkable. EYES: Normal conjunctiva. Sclera non-icteric. NECK: Supple. No nuchal rigidity. FROM. No JVD. RESPIRATORY: Clear to auscultation. CARDIAC: Regular rate, normal rhythm. Extremities warm and well perfused. Pulses equal. ABDOMEN: Soft, non-distended. No tenderness to palpation. No rebound or guarding. No masses. RECTAL: Deferred. MUSCULOSKELETAL: Chest examination reveals no tenderness. The back is symmetrical on inspection without obvious abnormality. There is no CVA tenderness to palpation. No joint edema. LOWER EXTREMITIES: Calves are equal size bilaterally and non-tender. No edema. No discoloration. NEURO: Normal sensorium. No sensory or motor deficits noted. SKIN: Mild pallor. No rash or jaundice noted. Critical Care: I have personally spent greater than 35 minutes of critical care time in the direct management of this patient. This includes bedside care, interpretation of diagnostic studies, and testing, discussion with consultants, patient, and family members, and other required patient management activities. This 35 minutes is in excess of all separately billable procedures. Alcides Lilly MD Past Med/Surg History Medical History Abdominal pain, chronic, epigastric Chronic pain Jaqui-Danlos disease History of COVID-19 Jejunostomy tube present On total parenteral nutrition (TPN) POTS (postural orthostatic tachycardia syndrome) Severe malnutrition Small intestinal bacterial overgrowth (SIBO) Surgical History H/O wisdom tooth extraction H/O wrist surgery History of esophagogastroduodenoscopy (EGD) History of surgery (06/24/21) Removal of Right Tunneled Central Line in Internal Jugular Catheter(Right) - Hector Tracy MD, FACS 06/24/2021 S/P knee surgery Left Family History Other Adopted Social History Smoking Status: Never smoker Second Hand Exposure: No; Do You Dip or Chew Tobacco: No; Hx Alcohol Use: Yes Alcohol type: hard liquor Hx Substance Use: No Preferred Language: Welsh Communication Ability: Effective Telephonic Nurse Case Manager Required: No Beliefs That Will Affect Care: None Current Living Situation: Family Other Information That Helps Us Care for You: No Feels Safe at Home: Yes Safety Concerns: Feels Safe At This Time Assistive Devices: Contacts and Glasses Allergies Allergies Allergy/AdvReac Type Severity Reaction Status Date / Time prochlorperazine Allergy Severe Anaphylaxis Verified 05/15/22 19:10 [From Compazine] adhesive Allergy Intermediate red,swollen Verified 05/15/22 19:10 gluten Allergy Intermediate HIVES, GI Verified 05/15/22 19:10 UPSET peanut Allergy Intermediate ITCHY Verified 05/15/22 19:10 THROAT tree nut Allergy Intermediate ITCHY Verified 05/15/22 19:10 THROAT pollen extracts Allergy Mild ITCHY Verified 05/15/22 19:10 EYES, SNEEZING, CONGESTION Latex, Natural Rubber AdvReac Intermediate REDDENED Verified 05/15/22 19:10 AND ITCHINESS Home Meds Home Medications Medication Instructions Recorded Confirmed buspirone 5 mg tablet 5 mg PO BID 04/09/21 05/15/22 famotidine 20 mg tablet 20 mg PO BID 04/09/21 05/15/22 fludrocortisone 0.1 mg tablet 0.1 mg PO DAILY 04/09/21 05/15/22 loratadine 10 mg tablet 10 mg PO DAILY 04/09/21 05/15/22 montelukast 10 mg tablet 10 mg PO DAILY 04/09/21 05/15/22 (Singulair) omeprazole 20 mg capsule,delayed 20 mg PO BID 04/09/21 05/15/22 release ondansetron HCl 8 mg tablet 8 mg PO Q8 PRN Nausea 04/09/21 05/15/22 linaclotide 145 mcg capsule 145 mcg PO QAM PRN Constipation 01/02/22 05/15/22 (Linzess) Results & Data (ED) Vital Signs Vital Signs - 24 hr 05/15/22 17:06 05/15/22 19:14 Temperature 36.5 C Temperature Source Temporal Artery Scan Pulse Rate 101 H Pulse Rate [Right Finger] 95 H Respiratory Rate 18 15 Respiratory Effort / Characteristics Non-Labored Spontaneous Respiratory Depth Normal Respiratory Pattern Regular Blood Pressure 123/68 Blood Pressure [Right Arm] 114/86 Blood Pressure Mean 86 Blood Pressure Mean [Right Arm] 95 Pulse Oximetry 100 99 Oxygen Delivery Method Room Air Room Air Sepsis Recent Fever Within 48 Hours No Sepsis New/Unexplained Change in Mental Status No Sepsis Action Taken by Nursing No Action Required Laboratory Data Attestation: I reviewed the patient's lab results. Result diagrams: 05/15/22 17:20 05/15/22 17:20 Lab Results 05/15/22 05/15/22 05/15/22 Range/Units 17:20 17:20 17:20 WBC 2.54 L (4.8-10.8) K/ul RBC 3.49 L (3.93-5.22) M/uL Hgb 7.2 L (12.0-16.0) g/dl Hct 23.8 L (34.1-44.9) % MCV 68.2 L (80.0-100.0) fL MCH 20.6 L (25.0-34.0) pg MCHC 30.3 L (32.0-36.0) g/dL RDW Std Deviation 42.0 (36.4-46.3) fL RDW Coeff of Priscilla 17.3 H (11.5-14.5) % Plt Count 324 (130-400) K/uL MPV 9.9 (9.4-12.3) fL Reticulocyte % (Auto) 1.1 (0.5-2.0) % Reticulocyte # 0.04 (0.02-0.10) 10^6/uL PT 11.7 (9.0-12.0) Seconds INR 1.1 (0.9-1.1) APTT 26.5 (21.0-31.0) Seconds PTT Ratio 1.0 Sodium (136-145) mmol/L Potassium (3.5-5.1) mmol/L Chloride (98-107) mmol/L Carbon Dioxide (21-32) mmol/L Anion Gap (3-11) BUN (6-23) mg/dl Creatinine (0.6-1.2) mg/dl Est Cr Clr Drug Dosing ml/min Est GFR ( Amer) ml/min Est GFR (Non-Af Amer) ml/min BUN/Creatinine Ratio (10-20) Glucose (70-99(Fasting)) mg/dl Calcium (8.5-10.1) mg/dl Iron (35-150) mcg/dl Unsaturated IBC (155-355) mcg/dl Transferrin (200-360) mg/dl Ferritin (8-388) ng/ml Total Bilirubin (0.2-1.0) mg/dl AST (13-39) U/L ALT (7-52) U/L Alkaline Phosphatase (34-104) U/L Total Protein (6.0-8.3) gm/dl Albumin (3.4-5.0) gm/dl Globulin (2.5-4.0) gm/dl Albumin/Globulin Ratio (0.9-2) SARS-CoV-2, RNA, NAAT (NEGATIVE) Blood Type O Positive Blood Type Recheck Antibody Screen NEGATIVE Crossmatch See Detail 05/15/22 05/15/22 05/15/22 Range/Units 17:20 17:22 19:09 WBC (4.8-10.8) K/ul RBC (3.93-5.22) M/uL Hgb (12.0-16.0) g/dl Hct (34.1-44.9) % MCV (80.0-100.0) fL MCH (25.0-34.0) pg MCHC (32.0-36.0) g/dL RDW Std Deviation (36.4-46.3) fL RDW Coeff of Priscilla (11.5-14.5) % Plt Count (130-400) K/uL MPV (9.4-12.3) fL Reticulocyte % (Auto) (0.5-2.0) % Reticulocyte # (0.02-0.10) 10^6/uL PT (9.0-12.0) Seconds INR (0.9-1.1) APTT (21.0-31.0) Seconds PTT Ratio Sodium 141 (136-145) mmol/L Potassium 3.7 (3.5-5.1) mmol/L Chloride 112 H (98-107) mmol/L Carbon Dioxide 25 (21-32) mmol/L Anion Gap 4 (3-11) BUN 11 (6-23) mg/dl Creatinine 0.63 (0.6-1.2) mg/dl Est Cr Clr Drug Dosing 113.9 ml/min Est GFR ( Amer) 145.5 ml/min Est GFR (Non-Af Amer) 125.5 ml/min BUN/Creatinine Ratio 17.5 (10-20) Glucose 89 (70-99(Fasting)) mg/dl Calcium 8.7 (8.5-10.1) mg/dl Iron 14 L (35-150) mcg/dl Unsaturated IBC 477 H (155-355) mcg/dl Transferrin 369 H (200-360) mg/dl Ferritin 8.0 (8-388) ng/ml Total Bilirubin 0.3 (0.2-1.0) mg/dl AST 16 (13-39) U/L ALT 12 (7-52) U/L Alkaline Phosphatase 67 (34-104) U/L Total Protein 7.2 (6.0-8.3) gm/dl Albumin 4.1 (3.4-5.0) gm/dl Globulin 3.1 (2.5-4.0) gm/dl Albumin/Globulin Ratio 1.3 (0.9-2) SARS-CoV-2, RNA, NAAT (NEGATIVE) Blood Type Blood Type Recheck O Positive Antibody Screen Crossmatch 05/15/22 Range/Units 20:03 WBC (4.8-10.8) K/ul RBC (3.93-5.22) M/uL Hgb (12.0-16.0) g/dl Hct (34.1-44.9) % MCV (80.0-100.0) fL MCH (25.0-34.0) pg MCHC (32.0-36.0) g/dL RDW Std Deviation (36.4-46.3) fL RDW Coeff of Priscilla (11.5-14.5) % Plt Count (130-400) K/uL MPV (9.4-12.3) fL Reticulocyte % (Auto) (0.5-2.0) % Reticulocyte # (0.02-0.10) 10^6/uL PT (9.0-12.0) Seconds INR (0.9-1.1) APTT (21.0-31.0) Seconds PTT Ratio Sodium (136-145) mmol/L Potassium (3.5-5.1) mmol/L Chloride (98-107) mmol/L Carbon Dioxide (21-32) mmol/L Anion Gap (3-11) BUN (6-23) mg/dl Creatinine (0.6-1.2) mg/dl Est Cr Clr Drug Dosing ml/min Est GFR ( Amer) ml/min Est GFR (Non-Af Amer) ml/min BUN/Creatinine Ratio (10-20) Glucose (70-99(Fasting)) mg/dl Calcium (8.5-10.1) mg/dl Iron (35-150) mcg/dl Unsaturated IBC (155-355) mcg/dl Transferrin (200-360) mg/dl Ferritin (8-388) ng/ml Total Bilirubin (0.2-1.0) mg/dl AST (13-39) U/L ALT (7-52) U/L Alkaline Phosphatase (34-104) U/L Total Protein (6.0-8.3) gm/dl Albumin (3.4-5.0) gm/dl Globulin (2.5-4.0) gm/dl Albumin/Globulin Ratio (0.9-2) SARS-CoV-2, RNA, NAAT NEGATIVE (NEGATIVE) Blood Type Blood Type Recheck Antibody Screen Crossmatch Administered Medications Dextrose (D10w) 1,000 mls @ 30 mls/hr IV .Q24H ZULY Stop: 06/14/22 20:53 Last Admin: 05/15/22 21:41 Dose: 30 mls/hr Documented By: Discharge Plan Visit Data Chief Complaint: Abnormal Labs/Diagnostic Testing Stated Complaint: HEMOGLO 6.8 ED Provider: Alcides Lilly Discharge Problem: Symptomatic anemia, Iron deficiency, Fatigue Patient Disposition: Admitted As Inpatient Discharge Instructions Interventions: ED Discharge Assessment Last Done: 05/15/22 23:53
[2022-05-15] MEDS ORDERED: TPN/PPN CONSULT PHARMACY STA (20:54)
[2022-05-15] MEDS ORDERED: DEXTROSE 10% 1,000 ML IV PRN (20:54)
--- NOTE | 2022-05-15 20:54 | History & Physical Report ---
Date of Service May 15, 2022 Assessment & Plan (1) Iron deficiency: Plan: Progressive hemoglobin decrease over the course of 1 and half years since patient has been started on TPN. No signs or symptoms of active bleeding are blood loss. Hemoglobin7.2, microcytic. Ferritin8; considered iron deficiency anemia Plan; 1 unit of packed RBC ordered by emergency department. Will need iron supplement as outpatient. She has significant GI discomfort and is not able to take oral iron; will need IV iron as outpatient. (2) Gastrointestinal dysmotility: (3) On total parenteral nutrition (TPN): Plan: On 12 hours/day of TPN alternating with lipids and nonlipid On alternate days Formulations given to the pharmacist; TPN can only be started the next day from 4 PM. For now; will start on D10 NS at 40 cc/h to prevent hypoglycemia. TPN from tomorrow if patient stays. 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 Patient had lab work done by her primary care doctor today and was found to have hemoglobin of 6.8 for which she was sent to the emergency department. Patient last known hemoglobin is from 03/04 when she was in the emergency department which was 8.1. Looking back at her labs; patient hemoglobin has been slowly downtrending over the course of 1 and half years; was 13 in June 2021. Patient was started on TPN since August of 2020; she also has a GJ tube. Currently, she does not get any enteral feeds and is completely dependent on TPN. She reports that she eats by mouth and uses GJ tube to drain after she eats.Patient denies any change in her stool color. She denies any heavy menstrual bleed and has not noticed any bleeding episodes. She has not been on any form of iron supplement since TPN has been started. Patient does not report increased tiredness than usual; no complaint of chest pain, shortness of breath, abdominal pain, fever, chills or urinary symptoms. In the ED, patient was found to be normotensive and saturating well in room air. Her repeat hemoglobin was found to be 7.2; microcytic. Her ferritin is 8 consistent with iron deficiency anemia. Allergies Allergy/AdvReac Type Severity Reaction Status Date / Time prochlorperazine Allergy Severe Anaphylaxis Verified 05/15/22 19:10 [From Compazine] adhesive Allergy Intermediate red,swollen Verified 05/15/22 19:10 gluten Allergy Intermediate HIVES, GI Verified 05/15/22 19:10 UPSET peanut Allergy Intermediate ITCHY Verified 05/15/22 19:10 THROAT tree nut Allergy Intermediate ITCHY Verified 05/15/22 19:10 THROAT pollen extracts Allergy Mild ITCHY Verified 05/15/22 19:10 EYES, SNEEZING, CONGESTION Latex, Natural Rubber AdvReac Intermediate REDDENED Verified 05/15/22 19:10 AND ITCHINESS Home Medications Medication Instructions Recorded Confirmed Type buspirone 5 mg tablet 5 mg PO BID 04/09/21 05/15/22 History famotidine 20 mg tablet 20 mg PO BID 04/09/21 05/15/22 History fludrocortisone 0.1 mg tablet 0.1 mg PO DAILY 04/09/21 05/15/22 History gabapentin 100 mg capsule 200 mg PO TID 04/09/21 05/15/22 History loratadine 10 mg tablet 10 mg PO DAILY 04/09/21 05/15/22 History montelukast 10 mg tablet 10 mg PO DAILY 04/09/21 05/15/22 History (Singulair) omeprazole 20 mg capsule,delayed 20 mg PO BID 04/09/21 05/15/22 History release ondansetron HCl 8 mg tablet 8 mg PO Q8 PRN Nausea 04/09/21 05/15/22 History pregabalin 50 mg capsule 50 mg PO BID 06/23/21 05/15/22 History dronabinol 2.5 mg capsule (Marinol) 2.5 mg PO TID 01/02/22 05/15/22 History linaclotide 145 mcg capsule 145 mcg PO QAM 01/02/22 05/15/22 History (Linzess) Motilium 10 mg PO DIRECTED 05/15/22 05/15/22 History Past Med/Surg History Medical History (Updated 05/15/22 @ 21:00 by Terrell Staples MD) Abdominal pain, chronic, epigastric Chronic pain Jaqui-Danlos disease History of COVID-19 Jejunostomy tube present On total parenteral nutrition (TPN) POTS (postural orthostatic tachycardia syndrome) Severe malnutrition Small intestinal bacterial overgrowth (SIBO) Surgical History H/O wisdom tooth extraction H/O wrist surgery History of esophagogastroduodenoscopy (EGD) History of surgery (06/24/21) Removal of Right Tunneled Central Line in Internal Jugular Catheter(Right) - Hector Tracy MD, FACS 06/24/2021 S/P knee surgery Left Family History Other Adopted Social History Smoking Status: Never smoker Hx Alcohol Use: No Hx Substance Use: No Preferred Language: Irish Communication Ability: Effective Shell [employer] Bonder Required: No Beliefs That Will Affect Care: None Current Living Situation: Parent Feels Safe at Home: Yes Assistive Devices: Glasses Review of Systems Review of Systems: All systems reviewed & are unremarkable except as noted in Subjective Physical Exam Physical Exam: Constitutional: Comfortable, alert orient x3; not in distress. Respiratory: normal respiratory effort, lungs clear to auscultation, no wheeze, rales, rhonchi. Normal insp/exp effort, no accessory muscle use Cardiovascular: RRR, no murmur, no edema Vessels: no JVD or carotid bruit Chest: normal inspection of chest. Dual cannulated port present Abdomen: normal bowel sounds, soft, nontender, no hepatosplenomegaly. GJ tube capped. Musculoskeletal: no cyanosis or clubbing, extremities motor strength 5/5 Skin: no rashes, warm and dry normal turgor Neurologic: PERRL, EOMI, accommodation nl, no face palsy, no dysarthria CN's II- XI intact bilaterally and moves all extremities Psychiatric: A+Ox3, euthymic affect Lymphatic: no cervical or axillary lymphadenopathy : deferred Results & Data Results & Data ([facility]) Vital Signs (Past 12 Hours) Vital Signs Temp Pulse Pulse Resp BP BP Pulse Ox 05/15/22 19:14 95 H 15 114/86 99 11/02/22 17:06 36.5 C 101 H 18 123/68 100 O2 Del Method 05/15/22 19:14 Room Air 05/15/22 17:06 Room Air Laboratory Results Laboratory Results WBC 2.54 K/ul (4.8-10.8) L 05/15/22 17:20 RBC 3.49 M/uL (3.93-5.22) L 05/15/22 17:20 Hgb 7.2 g/dl (12.0-16.0) L 05/15/22 17:20 Hct 23.8 % (34.1-44.9) L 05/15/22 17:20 MCV 68.2 fL (80.0-100.0) L 05/15/22 17:20 MCH 20.6 pg (25.0-34.0) L 05/15/22 17:20 MCHC 30.3 g/dL (32.0-36.0) L 05/15/22 17:20 RDW Std Deviation 42.0 fL (36.4-46.3) 05/15/22 17:20 RDW Coeff of Priscilla 17.3 % (11.5-14.5) H 05/15/22 17:20 Plt Count 324 K/uL (130-400) 05/15/22 17:20 MPV 9.9 fL (9.4-12.3) 05/15/22 17:20 Reticulocyte % (Auto) 1.1 % (0.5-2.0) 05/15/22 17: Reticulocyte # 0.04 10^6/uL (0.02-0.10) 05/15/22 17:20 PT 11.7 Seconds (9.0-12.0) 05/15/22 17:20 INR 1.1 (0.9-1.1) 05/15/22 17:20 APTT 26.5 Seconds (21.0-31.0) 05/15/22 17:20 PTT Ratio 1.0 05/15/22 17:20 Sodium 141 mmol/L (136-145) 05/15/22 17:20 Potassium 3.7 mmol/L (3.5-5.1) 05/15/22 17:20 Chloride 112 mmol/L (98-107) H 05/15/22 17:20 Carbon Dioxide 25 mmol/L (21-32) 05/15/22 17:20 Anion Gap 4 (3-11) 05/15/22 17:20 BUN 11 mg/dl (6-23) 05/15/22 17:20 Creatinine 0.63 mg/dl (0.6-1.2) 05/15/22 17:20 Est Cr Clr Drug Dosing 113.9 ml/min 05/15/22 17:20 Est GFR ( Amer) 145.5 ml/min 05/15/22 17:20 Est GFR (Non-Af Amer) 125.5 ml/min 05/15/22 17:20 BUN/Creatinine Ratio 17.5 (10-20) 05/15/22 17:20 Glucose 89 mg/dl (70-99(Fasting)) 05/15/22 17:20 POC Glucose 80 mg/dl (70-99) 05/15/22 20:36 Calcium 8.7 mg/dl (8.5-10.1) 05/15/22 17:20 Iron 14 mcg/dl (35-150) L 05/15/22 17:22 Unsaturated IBC 477 mcg/dl (155-355) H 05/15/22 17:22 Transferrin 369 mg/dl (200-360) H 05/15/22 17:22 Ferritin 8.0 ng/ml (8-388) 05/15/22 17:22 Total Bilirubin 0.3 mg/dl (0.2-1.0) 05/15/22 17:20 AST 16 U/L (13-39) 05/15/22 17:20 ALT 12 U/L (7-52) 05/15/22 17:20 Alkaline Phosphatase 67 U/L (34-104) 05/15/22 17:20 Total Protein 7.2 gm/dl (6.0-8.3) 05/15/22 17:20 Albumin 4.1 gm/dl (3.4-5.0) 05/15/22 17:20 Globulin 3.1 gm/dl (2.5-4.0) 05/15/22 17:20 Albumin/Globulin Ratio 1.3 (0.9-2) 05/15/22 17:20 SARS-CoV-2, RNA, NAAT NEGATIVE (NEGATIVE) 05/15/22 20:03 Blood Type O Positive 05/15/22 17:20 Blood Type Recheck O Positive 05/15/22 19:09 Antibody Screen NEGATIVE 05/15/22 17:20 Crossmatch See Detail 05/15/22 17:20 Code Status & VTE Plan VTE Prophylaxis Plan VTE Prophylaxis will be ordered: Yes
[2022-05-15] MEDS ORDERED: TPN/PPN CONSULT PHARMACY PRN (21:02)
[2022-05-15] MEDS ORDERED: DEXTROSE 10% 1,000 ML IV SCH (21:15)
[2022-05-15] MEDS ORDERED: ONDANSETRON 4 MG OD TAB PO PRN (23:50)
[2022-05-15] MEDS ORDERED: ACETAMINOPHEN 325 MG TAB PO PRN (23:50)
[2022-05-15] MEDS ORDERED: LINACLOTIDE 145 MCG CAPSULE PO PRN (23:50)
[2022-05-16] MEDS ORDERED: HEPARIN 100 UNIT/ML 5ML FLUSH FLUSH PRN (00:41)
[2022-05-16] MEDS: ONDANSETRON INJ 2 MG/ML 2 ML VIAL IV PRN ×2 (01:19→09:30)
[2022-05-16] MEDS ORDERED: FLUDROCORTISONE ACETATE 0.1 MG TAB PO SCH (09:00)
[2022-05-16] MEDS ORDERED: LORATADINE 10 MG TAB PO SCH (09:00)
[2022-05-16] MEDS ORDERED: PANTOprazole 40 MG TAB PO SCH (09:00)
[2022-05-16] MEDS ORDERED: FAMOTIDINE 20 MG TAB PO SCH (09:00)
[2022-05-16] MEDS ORDERED: MONTELUKAST SODIUM 10 MG TABLET PO SCH (09:00)
[2022-05-16] MEDS ORDERED: busPIRone 5 MG TAB PO SCH (09:00)
[2022-05-16 09:09] LABS: Albumin Globulin Ratio 1.3 (0.9-2); BUN Creatinine Ratio 13.6 (10-20); Bilirubin,Total 0.4 mg/dl (0.2-1.0); Creatinine Clr Calc Pharmacy 105.8 ml/min; Est GFR (African American) 143.3 ml/min; Est GFR (Non-African American) 123.6 ml/min; Globulin 3.1 gm/dl (2.5-4.0); Phosphorus 4.1 mg/dl (2.5-4.9); Potassium 3.5 mmol/L (3.5-5.1); Total Protein 7.1 gm/dl (6.0-8.3)
[2022-05-16 09:11] LABS: Basophils # (auto) 0.02 K/uL (0-0.2); Basophils % (auto) 0.5 %; Hematocrit (blood only) 27.3 % (34.1-44.9); Hemoglobin 8.4 g/dl (12.0-16.0); Immature Granulocytes # (auto) 0.01 K/uL (0.00-0.02); Immature Granulocytes % (auto) 0.2 %; Lymphocytes # (auto) 1.94 K/uL (1.2-3.4); Lymphocytes % (auto) 48.3 %; Mean Corpuscular Hemoglobin 22.1 pg (25.0-34.0); Mean Corpuscular Hgb Conc 30.8 g/dL (32.0-36.0); Mean Corpuscular Volume 71.8 fL (80.0-100.0); Mean Platelet Volume 9.7 fL (9.4-12.3); Monocytes # (auto) 0.32 K/uL (0.24-0.82); Neutrophils # (auto) 1.73 K/uL (1.4-6.5); Platelet Count 305 K/uL (130-400); RDW Coefficient of Variation 18.8 % (11.5-14.5); RDW Standard Deviation 48.4 fL (36.4-46.3); White Blood Count 4.02 K/ul (4.8-10.8)
--- NOTE | 2022-05-16 12:13 | Electrocardiogram Report ---
Test Reason : Blood Pressure : / mmHG Vent. Rate : 097 BPM Atrial Rate : 097 BPM P-R Int : 142 ms QRS Dur : 072 ms QT Int : 360 ms P-R-T Axes : 059 071 029 degrees QTc Int : 457 ms Poor data quality, interpretation may be adversely affected Normal sinus rhythm Normal ECG When compared with ECG of 23-JUN-2021 15:18, No significant change was found Confirmed by Matteo Rosario ([id number]) on 05/16/2022 12:13:44 PM Referred By: Meek Lopez Confirmed By:Leonides Rosario
--- NOTE | 2022-05-16 14:06 | Discharge Summary ---
Date of Service May 16, 2022 Admission HPI Per Admitting Provider Past medical history of Jaqui-Danlos disease, GI dysmotility on TPN, malnutrition, POTS Last confinement in June 2021 for fungemia; treated with IV Antibiotic and Port-A-Cath Exchange. Patient had lab work done by her primary care doctor today and was found to have hemoglobin of 6.8 for which she was sent to the emergency department. Patient last known hemoglobin is from 03/04 when she was in the emergency department which was 8.1. Looking back at her labs; patient hemoglobin has been slowly downtrending over the course of 1 and half years; was 13 in June 2021. Patient was started on TPN since August of 2020; she also has a GJ tube. Currently, she does not get any enteral feeds and is completely dependent on TPN. She reports that she eats by mouth and uses GJ tube to drain after she eats.Patient denies any change in her stool color. She denies any heavy menstrual bleed and has not noticed any bleeding episodes. She has not been on any form of iron supplement since TPN has been started. Patient does not report increased tiredness than usual; no complaint of chest pain, shortness of breath, abdominal pain, fever, chills or urinary symptoms. In the ED, patient was found to be normotensive and saturating well in room air. Her repeat hemoglobin was found to be 7.2; microcytic. Her ferritin is 8 consistent with iron deficiency anemia. Admission Exam Per Admitting Provider Constitutional: Comfortable, alert orient x3; not in distress. Respiratory: normal respiratory effort, lungs clear to auscultation, no wheeze, rales, rhonchi. Normal insp/exp effort, no accessory muscle use Cardiovascular: RRR, no murmur, no edema Vessels: no JVD or carotid bruit Chest: normal inspection of chest. Dual cannulated port present Abdomen: normal bowel sounds, soft, nontender, no hepatosplenomegaly. GJ tube capped. Musculoskeletal: no cyanosis or clubbing, extremities motor strength 5/5 Skin: no rashes, warm and dry normal turgor Neurologic: PERRL, EOMI, accommodation nl, no face palsy, no dysarthria CN's II- XI intact bilaterally and moves all extremities Psychiatric: A+Ox3, euthymic affect Lymphatic: no cervical or axillary lymphadenopathy : deferred Principal Diagnosis Iron deficiency anemia Discharge Exam Gen: WD/WN, NAD, lying in bed, A&Ox3, sleeping but awakens to answer questions appropriately HEENT: Normocephalic, atraumatic, conjunctivae moist, sclerae anicteric, mucous membranes moist Lung: Clear to Auscultation bilaterally, no wheezes/rales/rhonchi Chest: + port visualized, no surrounding erythema or drainage Heart: Regular rate, regular rhythm, no murmurs, rubs, or gallops Abdomen: Soft, NT, ND +BS x 4. GJ tube capped Extremities: no edema Skin: Warm, no rash Discharge Data Allergies Allergy/AdvReac Type Severity Reaction Status Date / Time prochlorperazine Allergy Severe Anaphylaxis Verified 05/15/22 19:10 [From Compazine] adhesive Allergy Intermediate red,swollen Verified 05/15/22 19:10 gluten Allergy Intermediate HIVES, GI Verified 05/15/22 19:10 UPSET peanut Allergy Intermediate ITCHY Verified 05/15/22 19:10 THROAT tree nut Allergy Intermediate ITCHY Verified 05/15/22 19:10 THROAT pollen extracts Allergy Mild ITCHY Verified 05/15/22 19:10 EYES, SNEEZING, CONGESTION Latex, Natural Rubber AdvReac Intermediate REDDENED Verified 05/15/22 19:10 AND ITCHINESS Consultations 05/15/22 20:07 ED Decision to Admit Stat Hospital Course (1) Iron deficiency: (2) Gastrointestinal dysmotility: (3) On total parenteral nutrition (TPN): (4) POTS (postural orthostatic tachycardia syndrome): On Florinef Plan This is a 26yo F with PMH of Jaqui-Danlos disease, GI dysmotility on TPN, malnutrition, POTS who presents with symptomatic anemia. Initial hemoglobin 6.8. Received 1u prbcs with improved hgb of 8.4. Other iron studies indicate iron deficiency anemia. Does not tolerate oral iron due to significant GI discomfort and will therefore require IV iron infusions. Has previously followed with Dr. Rashid of hematology and will be set up to re-establish and receive IV iron infusions. Continues to have baseline abdominal discomfort and lightheadedness d ue to chronic issues but feels acutely improved after transfusion. Continue TPN and all other home medications as scheduled. Will touch base with PCP. Patient hemodynamically stable at time of discharge. Total Time Total Time Spent Total Time Spent (In Minutes): 40 Discharge Plan Discharge Items Patient Disposition: Home - Self-Care Reason For Visit: ANEMIA Discharge Diagnosis: iron deficiency anemia Activity: Resume your previous activity Non-emergency contact: Primary Care Provider Call non-emergency contact if: you have any medication questions, your symptoms worsen, your pain is not controlled and you have a fever Follow-up/Referrals: Meek Lopez MD [Primary Care Provider] - 05/21/22 2:00 pm (Date & Time 05/21/2022 2:00 PM Provider Meek Lopez MD [facility] ) Diet: Regular Addtl Attending Provider Instructions: You were admitted due to low blood counts and received 1u blood transfusion with clinical improvement Lab work is consistent with iron deficiency anemia You will need to start IV iron supplementation as an out-patient We will help coordinate an appointment with machine long goods helper Dr. Rashid, whom you have seen in the past Continue TPN and all other medication as before RECOMMENDATIONS FOR FOLLOW-UP: Please follow up with PCP Dr. Lopez as above. We will assist in scheduling you with Dr. Rashid to further coordinate iron infusions. OTHER INSTRUCTIONS: Seek medical attention if you have: * temperature above 101 * chest pain or trouble breathing * abdominal pain, nausea, vomiting * diarrhea, dark stools or bloody stools * any unanswered questions or concerns Call 911 if symptoms are severe. Please take good care of yourself. Call if you have any questions or problems. You can reach a [facility] hospitalist on duty at [facility] 24 hours a day by calling [phone]. Pending Studies at Discharge: No Stand-Alone Forms: My [facility] [employer], Smoking Cessation Medications and DC Order Prescriptions: Continued buspirone 5 mg tablet 5 mg PO BID ondansetron HCl 8 mg tablet 8 mg PO Q8 PRN (Reason: Nausea) famotidine 20 mg tablet 20 mg PO BID omeprazole 20 mg capsule,delayed release(DR/EC) 20 mg PO BID montelukast [Singulair] 10 mg Tablet 10 mg PO DAILY fludrocortisone 0.1 mg tablet 0.1 mg PO DAILY loratadine 10 mg Tablet 10 mg PO DAILY Linzess 145 mcg Capsule 145 mcg PO QAM PRN (Reason: Constipation) Discharge Orders: Discharge Order (Routine); Ordered 05/16/22 Ordered By: Eli Galeano Admission Data Admit Date/Time: 05/15/22 20:12 Attending Provider: Carolina Garza Admit Provider: Terrell Staples Primary Care Provider: Meek Lopez Other Providers: Terrell Staples ; Eli Galeano Other Interventions: Discharge Summary Assessment (RN) Last Done: 05/16/22 14:34 Supervising Physician Co-Signing Physician Notes I have seen and examined the patient and have discussed the case with the provider above. I agree with the assessment and plan as stated. 26 yo F with chronic conditions likely contributing to anemia. Agree with consideration for IV iron supplementation given the malabsorption issues in the past and current need for TPN. Hematology referral also recommended to investigate this further. PCP to follow-up. She was given one unit of blood with an improvement in H/H as above and no further symptoms of anemia present. She verbalized that she didn't feel more blood would help her at this point, and that she was ok to go home. She was sent home in stable condition with close primary care follow-up recommended. DO Greg
== END 2022-05-16 14:56 | disposition home or self-care (01) ==
LOC: 3E 16:45 → ED 16:45 → SUATTDRO 20:12 → 3E 23:53

== ENCOUNTER 2023-07-03 17:48 | Inpatient (IN) ==
--- NOTE | 2023-07-03 18:13 | ED Triage Note ---
Date of Service July 03, 2023 Provider in Triage Author: Arnulfo Webb History of Present Illness This patient was briefly evaluated while in triage. An abbreviated physical exam was performed. This patient is a 27-year-old Female who presents to the ED for evaluation Hx of POTS, EDS tachycardic (180s) and feverish overnight while running TPN HARRISON, malaise hx of line infection-sent for labs/cultures Physical Exam GENERAL: NAD CARDIOVASCULAR: RRR RESPIRATORY: CTA, central catheter in right upper chest ABDOMEN: BS x 4. Nontender to palpation. Initial orders for labs and / or imaging were placed and patient was placed in the waiting area until a bed is available. Please see further documentation for the full ED course.
[2023-07-03 19:11] LABS: Basophils # (auto) 0.01 K/uL (0.00-0.20); Basophils % (auto) 0.2 %; Eosinophils # (auto) 0.01 K/uL (0.00-0.50); Eosinophils % (auto) 0.2 %; Hematocrit (blood only) 45.4 % (37.0-47.0); Hemoglobin 14.6 g/dl (12.0-16.0); Immature Granulocytes # (auto) 0.02 K/uL (0.01-0.20); Immature Granulocytes % (auto) 0.3 %; Lymphocytes # (auto) 0.87 K/uL (1.20-3.40); Lymphocytes % (auto) 14.8 %; Mean Corpuscular Hemoglobin 29.1 pg (25.0-34.0); Mean Corpuscular Hgb Conc 32.2 g/dL (32.0-36.0); Mean Corpuscular Volume 90.4 fL (80.0-100.0); Mean Platelet Volume 9.1 fL (9.4-12.4); Monocytes % (auto) 5.1 %; Neutrophils # (auto) 4.68 K/uL (1.40-6.50); Neutrophils % (auto) 79.4 %; Platelet Count 316 K/uL (130-400); RDW Coefficient of Variation 12.6 % (11.5-14.5); RDW Standard Deviation 41.2 fL (36.4-46.3); Red Blood Count 5.02 M/uL (4.20-5.40); White Blood Count 5.89 K/ul (4.8-10.8)
[2023-07-03 19:21] LABS: BUN Creatinine Ratio 20.3 (10-20); Bilirubin Direct 0.1 mg/dl (0-0.2); Bilirubin,Total 0.7 mg/dl (0.2-1.0); Calcium 9.7 mg/dl (8.6-10.3); Creatinine Clr Calc Pharmacy 79.9 ml/min; Est GFR (African American) 120.6 ml/min; Potassium 3.6 mmol/L (3.5-5.1); Total Protein 8.9 gm/dl (6.0-8.3); Troponin I High Sensitivity 3.5 pg/ml (0-14)
[2023-07-03 19:45] LABS: Adenovirus PCR Not Detected (NotDetected); Bordetella parapertussis PCR Not Detected (NotDetected); Bordetella pertussis PCR Not Detected (NotDetected); Chlamydia pneumoniae PCR Not Detected (NotDetected); Coronavirus 229E PCR Not Detected (NotDetected); Coronavirus CoV-2 (COVID19)PCR Not Detected (NotDetected); Coronavirus HKU1 PCR Not Detected (NotDetected); Coronavirus NL63 PCR Not Detected (NotDetected); Coronavirus OC43PCR Not Detected (NotDetected); Human Metapneumovirus PCR Not Detected (NotDetected); Influenza A PCR Not Detected (NotDetected); Influenza B PCR Not Detected (NotDetected); Mycoplasma pneumoniae PCR Not Detected (NotDetected); Parainfluenza Virus 1 PCR Not Detected (NotDetected); Parainfluenza Virus 2 PCR Not Detected (NotDetected); Parainfluenza Virus 3 PCR Not Detected (NotDetected); Parainfluenza Virus 4 PCR Not Detected (NotDetected); Respiratory Syncytial VirusPCR Not Detected (NotDetected); Rhinovirus/Enterovirus PCR Not Detected (NotDetected)
[2023-07-03] MEDS ORDERED: SODIUM CHLORIDE 0.9% 2,000 ML IV ONE (19:52)
--- NOTE | 2023-07-03 20:58 | Emergency Department Note ---
Impression & Plan Tachycardia ED Provider Note HISTORY OF PRESENT ILLNESS: Patient is a 26-year-old female presenting with fever and tachycardia. Patient reports that for the last 2 days every time she does the TPN feed she notices that her heart rate goes into the 180s and she has a low-grade fever. Reports that it again happened tonight and her doctor referred her to the ER. She denies taking anything for her fever prior to arrival. She denies any chest pain or significant shortness of breath. Denies any new nausea or vomiting, but states she is always nauseous. Denies any abdominal pain. Denies any cough. Denies any recent sick contact exposures. ROS: as above PHYSICAL EXAM: Constitutional: Patient appears in no acute distress. HENT: Head: Normocephalic and atraumatic. Eyes: EOMI, PERRL Mouth/Throat: Mucous membranes moist. Neck: Trachea midline. Neck supple. Cardiovascular: Tachycardic with regular rhythm. No murmurs, rubs or gallops. Intact distal pulses. Pulmonary/Chest: No respiratory distress. Breath sounds clear and equal bilaterally. No wheezes or rales. Right subclavian line in place. No surrounding erythema. Abdominal: Abdomen soft, no tenderness, rebound or guarding. GJ tube in place. Musculoskeletal: No edema, tenderness or deformity noted. Skin: Warm and dry. No rash, erythema, pallor or cyanosis Psychiatric: Appropriate mood and affect for situation. Neurological: Alert and keenly responsive. CN II-XII grossly intact, moving all extremities equally and fully. MDM: - Vitals signs showed tachycardia. - History obtained via patient. Patient presents with fever and tachycardia. Patient reports in the last 2 days every time she uses her TPN she noticed that her heart rate goes up into the 180s and she has a low-grade fever. Reports that it happened again tonight and her doctor referred her to the ER. She denies taking anything for fever prior to arrival. Denies any chest pain or shortness of breath. Denies any abdominal pain. Denies any recent sick contact exposures or recent travel. 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 At this time, monitor showed rate of 121 bpm with normal sinus rhythm, per my interpretation. - External medical records reviewed. - EKG interpreted by myself showed normal sinus rhythm. Rate 124 bpm. QTc 453. No acute ischemic changes - Laboratory workup interpreted by myself showed normal WBC; stable electrolytes; normal procalcitonin; normal lactate - Viral respiratory panel negative - CT PE negative for PE - CXR negative for pneumonia, per my interpretation - Patient given 2L NS in ER and heart rate did not improve. - Discussion was had with healthcare recruiter about patient's case and need for admission - Hospitalist, Dr. Figueredo, consulted for admission - Patient admitted to [facility] service for further evaluation and management. ASSESSMENT AND PLAN: Diagnosis: tachycardia Plan: admit Past Med/Surg History Medical History Abdominal pain, chronic, epigastric chronic Anemia Central venous catheter in place broke- clamped in ER, taped around site Chronic pain Jaqui-Danlos disease Dx several years ago Gastrointestinal dysmotility Gastroparesis History of COVID-19 02/2022, not hospitalized Jejunostomy tube present placed October 2020 Neuropathy legs On total parenteral nutrition (TPN) POTS (postural orthostatic tachycardia syndrome) Reactive hypoglycemia dexcom present to left arm Severe malnutrition 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 Surgical History H/O wisdom tooth extraction H/O wrist surgery right History of esophagogastroduodenoscopy (EGD) History of myringotomy History of surgery (06/24/21) Removal of Right Tunneled Central Line in Internal Jugular Catheter S/P knee surgery Left Family History Other Adopted Social History Smoking Status: Never smoker Second Hand Exposure: No; Do You Dip or Chew Tobacco: No; Hx Alcohol Use: Yes Alcohol type: hard liquor Hx Substance Use: No Preferred Language: Danish Communication Ability: Effective Customer Support Associate Required: No Beliefs That Will Affect Care: None Current Living Situation: Family Feels Safe at Home: Yes Assistive Devices: Contacts Allergies Allergies Allergy/AdvReac Type Severity Reaction Status Date / Time diphenhydramine Allergy Severe Urticaria, Verified 07/03/23 20:55 [From Benadryl] severe anxiety, jittery iron [From Venofer] Allergy Severe Abdominal Verified 07/03/23 20:55 Pain prochlorperazine Allergy Severe Anaphylaxis Verified 07/03/23 20:55 [From Compazine] adhesive Allergy Intermediate Redness, Verified 07/03/23 20:55 swelling gluten Allergy Intermediate Hives, GI Verified 07/03/23 20:55 upset peanut Allergy Intermediate Itchy Verified 07/03/23 20:55 throat tree nut Allergy Intermediate Itchy Verified 07/03/23 20:55 throat pollen extracts Allergy Mild Itchy Verified 07/03/23 20:55 eyes, sneezing, congestion chlorhexidine Allergy Unknown Unknown Verified 07/03/23 20:55 Latex, Natural Rubber AdvReac Intermediate Redness, Verified 07/03/23 20:55 itchy Home Meds Home Medications Medication Instructions Recorded Confirmed famotidine 20 mg tablet 20 mg PO BID 04/09/21 07/03/23 fludrocortisone 0.1 mg tablet 0.1 mg PO QAM 04/09/21 07/03/23 loratadine 10 mg tablet 10 mg PO QAM 04/09/21 07/03/23 montelukast 10 mg tablet 10 mg PO HS 04/09/21 07/03/23 (Singulair) ondansetron HCl 8 mg tablet 8 mg PO Q8 PRN Nausea 04/09/21 07/03/23 linaclotide 145 mcg capsule 145 mcg PO QAM PRN Constipation 01/02/22 07/03/23 (Linzess) cholecalciferol (vitamin D3) 1,250 1,250 mcg PO WK 01/13/23 07/03/23 mcg (50,000 unit) capsule granisetron HCl 1 mg tablet 1 mg PO Q12H 05/07/23 07/03/23 Results & Data (ED) Vital Signs Vital Signs - 24 hr 07/03/23 18:11 07/03/23 20:26 07/03/23 20:31 Temperature 36.7 C Temperature Source Temporal Artery Scan Pulse Rate 152 H 117 H Pulse Rate [Left Apical] 120 H Respiratory Rate 20 20 Respiratory Effort / Characteristics Non-Labored Non-Labored Respiratory Depth Normal Normal Blood Pressure 128/81 Blood Pressure [Right Arm] 110/89 Blood Pressure Mean 96 Blood Pressure Mean [Right Arm] 96 Pulse Oximetry 99 100 Oxygen Delivery Method Room Air Room Air Sepsis Recent Fever Within 48 Hours No Sepsis New/Unexplained Change in Mental Status N/A Sepsis Action Taken by Nursing No Action Required 07/03/23 21:00 07/03/23 21:30 07/03/23 22:00 Temperature Temperature Source Pulse Rate 124 H 117 H 124 H Pulse Rate [Left Apical] Respiratory Rate 23 19 24 Respiratory Effort / Characteristics Respiratory Depth Blood Pressure 114/69 108/72 117/91 Blood Pressure [Right Arm] Blood Pressure Mean 84 84 99 Blood Pressure Mean [Right Arm] Pulse Oximetry 100 96 95 Oxygen Delivery Method Room Air Room Air Room Air Sepsis Recent Fever Within 48 Hours Sepsis New/Unexplained Change in Mental Status Sepsis Action Taken by Nursing 07/03/23 22:30 07/03/23 23:00 07/03/23 23:30 Temperature Temperature Source Pulse Rate 124 H 125 H 123 H Pulse Rate [Left Apical] Respiratory Rate 24 16 19 Respiratory Effort / Characteristics Respiratory Depth Blood Pressure 117/88 113/83 105/72 Blood Pressure [Right Arm] Blood Pressure Mean 97 93 83 Blood Pressure Mean [Right Arm] Pulse Oximetry 100 99 100 Oxygen Delivery Method Room Air Room Air Room Air Sepsis Recent Fever Within 48 Hours Sepsis New/Unexplained Change in Mental Status Sepsis Action Taken by Nursing 07/04/23 00:00 07/04/23 00:30 07/04/23 00:30 Temperature Temperature Source Pulse Rate 117 H 121 H 122 H Pulse Rate [Left Apical] Respiratory Rate 19 21 Respiratory Effort / Characteristics Respiratory Depth Blood Pressure 119/88 118/87 Blood Pressure [Right Arm] Blood Pressure Mean 98 97 Blood Pressure Mean [Right Arm] Pulse Oximetry 99 99 Oxygen Delivery Method Room Air Room Air Sepsis Recent Fever Within 48 Hours Sepsis New/Unexplained Change in Mental Status Sepsis Action Taken by Nursing Laboratory Data 07/03/23 18:31 07/03/23 18:31 Lab Results 07/03/23 07/03/23 Range/Units 18:31 18:34 WBC 5.89 (4.8-10.8) K/ul RBC 5.02 (4.20-5.40) M/uL Hgb 14.6 (12.0-16.0) g/dl Hct 45.4 (37.0-47.0) % MCV 90.4 (80.0-100.0) fL MCH 29.1 (25.0-34.0) pg MCHC 32.2 (32.0-36.0) g/dL RDW Std Deviation 41.2 (36.4-46.3) fL RDW Coeff of Priscilla 12.6 (11.5-14.5) % Plt Count 316 (130-400) K/uL MPV 9.1 L (9.4-12.4) fL Immature Gran % (Auto) 0.3 % Neut % (Auto) 79.4 % Lymph % (Auto) 14.8 % Drew % (Auto) 5.1 % Eos % (Auto) 0.2 % Baso % (Auto) 0.2 % Neut # (Auto) 4.68 (1.40-6.50) K/uL Lymph # (Auto) 0.87 L (1.20-3.40) K/uL Drew # (Auto) 0.30 (0.11-0.59) K/uL Eos # (Auto) 0.01 (0.00-0.50) K/uL Baso # (Auto) 0.01 (0.00-0.20) K/uL Immature Gran # (Auto) 0.02 (0.01-0.20) K/uL Sodium 138 (136-145) mmol/L Potassium 3.6 (3.5-5.1) mmol/L Chloride 102 (98-107) mmol/L Carbon Dioxide 26 (21-32) mmol/L Anion Gap 10 (3-11) BUN 16 (6-23) mg/dl Creatinine 0.79 (0.6-1.2) mg/dl Est Cr Clr Drug Dosing 79.9 ml/min Est GFR ( Amer) 120.6 ml/min Est GFR (Non-Af Amer) 104.0 ml/min BUN/Creatinine Ratio 20.3 H (10-20) Glucose 81 (70-99(Fasting)) mg/dl Lactate 1.3 (0.4-2.0) mmol/L Calcium 9.7 (8.6-10.3) mg/dl Magnesium 2.0 (1.7-2.4) mg/dl Total Bilirubin 0.7 (0.2-1.0) mg/dl Direct Bilirubin 0.1 (0-0.2) mg/dl AST 38 (13-39) U/L ALT 67 H (7-52) U/L Alkaline Phosphatase 99 (34-104) U/L Troponin I High Sens 3.5 (0-14) pg/ml Total Protein 8.9 H D (6.0-8.3) gm/dl Albumin 5.0 (3.4-5.0) gm/dl Procalcitonin 0.08 (0-0.5) ng/ml Adenovirus (PCR) Not Detected (NotDetected) B. pertussis DNA (PCR) Not Detected (NotDetected) B.parapertussis DNA PCR Not Detected (NotDetected) C. pneumoniae DNA (PCR) Not Detected (NotDetected) Coronavirus OC43 (PCR) Not Detected (NotDetected) Coronavirus HKU1 (PCR) Not Detected (NotDetected) Coronavirus 229E (PCR) Not Detected (NotDetected) SARS-CoV-2 (PCR) Not Detected (NotDetected) Coronavirus NL63 (PCR) Not Detected (NotDetected) Human Metapneumovir PCR Not Detected (NotDetected) Influenza Type A (PCR) Not Detected (NotDetected) Influenza Type B (PCR) Not Detected (NotDetected) M. pneumoniae (PCR) Not Detected (NotDetected) Parainfluenza 1 (PCR) Not Detected (NotDetected) Parainfluenza 2 (PCR) Not Detected (NotDetected) Parainfluenza 3 (PCR) Not Detected (NotDetected) Parainfluenza 4 (PCR) Not Detected (NotDetected) RSV (PCR) Not Detected (NotDetected) Entero/Rhino (PCR) Not Detected (NotDetected) Administered Medications Discontinued Medications Sodium Chloride (Nss) 2,000 mls @ 999 mls/hr IV .Q2H1M ONE Stop: 07/03/23 21:52 Last Infusion: 07/04/23 00:14 Dose: Infused Documented By: Admin: 07/03/23 20:30 Dose: 999 mls/hr Documented By: EDY Ioversol (Optiray 320 125ml) 66 ml IV ONCE ONE Stop: 07/03/23 21:52 Last Admin: 07/03/23 21:51 Dose: 66 ml Documented By: PLW Imaging Data Radiologist's Impression: Chest X-Ray 07/03/23 18:14 XR chest 1V portable CLINICAL HISTORY: Sepsis TECHNIQUE: Single frontal radiograph of the chest was obtained. Comparison: Comparison is made to chest radiograph 06/29/2021 FINDINGS: Lines and tubes are stable. The cardiomediastinal silhouette is normal. The lungs are clear. No evidence of pleural effusion or pneumothorax. IMPRESSION: No acute chest disease. ACT 112: Negative or not required by law. Electronically signed by: Nirmal Lopez M.D. 07/03/2023 9:23 PM Chest CTA 07/03/23 20:55 Exam(s): CTA CHEST IV Amt: 66 ml opti 320 EXAM: CT Angiography Chest With Intravenous Contrast CLINICAL HISTORY: Reason for exam: PE. TECHNIQUE: Axial computed tomographic angiography images of the chest with intravenous contrast. CTDI is 17.95 mGy and DLP is 262.76 mGy-cm. Automated exposure control was utilized for the study. A dose lowering technique was utilized adhering to the principles of ALARA. MIP reconstructed images were created and reviewed. COMPARISON: No relevant prior studies available. FINDINGS: Pulmonary arteries: Unremarkable. No pulmonary embolism. Aorta: No acute findings. No thoracic aortic aneurysm. Lungs: Unremarkable. No mass. No consolidation. Pleural space: Unremarkable. No significant effusion. No pneumothorax. Heart: Unremarkable. No cardiomegaly. No significant pericardial effusion. No evidence of RV dysfunction. Bones/joints: No acute fracture. No dislocation. Soft tissues: Unremarkable. Lymph nodes: Unremarkable. No enlarged lymph nodes. Tubes, lines and devices: Right-sided central venous catheter terminates in the SVC. IMPRESSION: No acute findings in the visualized arteries of the chest. Electronically signed by: Neno Montgomery MD 07/03/23 23:47 PM Discharge Plan Visit Data Chief Complaint: Infection Stated Complaint: INFECTION IN CENTRAL LINE ED Provider: Fadumo Jay Discharge Problem: Tachycardia Forms Stand Alone Forms: [employer] Prescriptions Prescriptions: No Action ondansetron HCl 8 mg tablet 8 mg PO Q8 PRN (Reason: Nausea) famotidine 20 mg tablet 20 mg PO BID montelukast [Singulair] 10 mg Tablet 10 mg PO HS fludrocortisone 0.1 mg tablet 0.1 mg PO QAM loratadine 10 mg Tablet 10 mg PO QAM Linzess 145 mcg Capsule 145 mcg PO QAM PRN (Reason: Constipation) granisetron HCl [Kytril] 1 mg Tablet 1 mg PO Q12H cholecalciferol (vitamin D3) 1,250 mcg (50,000 unit) capsule 1,250 mcg PO WK Rx Instructions: sundays Referrals Referrals: Meek Lopez MD [Primary Care Provider] -
--- NOTE | 2023-07-03 21:24 | XRay Report ---
XR chest 1V portable CLINICAL HISTORY: Sepsis TECHNIQUE: Single frontal radiograph of the chest was obtained. Comparison: Comparison is made to chest radiograph 06/29/2021 FINDINGS: Lines and tubes are stable. The cardiomediastinal silhouette is normal. The lungs are clear. No evide nce of pleural effusion or pneumothorax. IMPRESSION: No acute chest disease. ACT 112: Negative or not required by law. Electronically signed by: Nirmal Lopez M.D. 07/03/2023 9:23 PM
[2023-07-03] MEDS ORDERED: OPTIRAY 320 125ml IV ONE (21:51)
--- NOTE | 2023-07-03 23:48 | CT Scan Report ---
Exam(s): CTA CHEST IV Amt: 66 ml opti 320 EXAM: CT Angiography Chest With Intravenous Contrast CLINICAL HISTORY: Reason for exam: PE. TECHNIQUE: Axial computed tomographic angiography images of the chest with intravenous contrast. CTDI is 17.95 mGy and DLP is 262.76 mGy-cm. Automated exposure control was utilized for the study. A dose lowering technique was utilized adhering to the principles of ALARA. MIP reconstructed images were created and reviewed. COMPARISON: No relevant prior studies available. FINDINGS: Pulmonary arteries: Unremarkable. No pulmonary embolism. Aorta: No acute findings. No thoracic aortic aneurysm. Lungs: Unremarkable. No mass. No consolidation. Pleural space: Unremarkable. No significant effusion. No pneumothorax. Heart: Unremarkable. No cardiomegaly. No significant pericardial effusion. No evidence of RV dysfunction. Bones/joints: No acute fracture. No dislocation. Soft tissues: Unremarkable. Lymph nodes: Unremarkable. No enlarged lymph nodes. Tubes, lines and devices: Right-sided central venous catheter terminates in the SVC. IMPRESSION: No acute findings in the visualized arteries of the chest. Electronically signed by: Neno Montgomery MD 07/03/23 23:47 PM
--- NOTE | 2023-07-04 01:30 | History & Physical Report ---
Date of Service July 04, 2023 Assessment & Plan (1) Tachycardia: Plan: 27-year-old female with past medical history significant for Jaqui-Danlos disease, GI dysmotility currently on TPN, malnutrition, POTS, history of fungemia in June 2021 treated with IV antibiotics and Port-A-Cath exchange, patient is s/p G-tube placement and was on tube feeds for some time but could not tolerate them and currently back on TPN presents with tachycardia. Patient states last couple of days whenever she is try to do TPN heart rate was going up to 180s and spiking temperature and as soon as she unhooked the TPN she was feeling okay. Because of that she could not give her TPN for last couple of days and she is worried about infection and came to the ER. Patient states that she does TPN 2.8 L including normal saline every night for 14 hours after that she gets 1 L of dextrose. She eats 1 small meal every day in the evening. Last couple of days she did not eat any meal and she is feeling hungry and she wants to try to eat now. Denies any fevers. Her nausea is same as before. She has a constant chronic abdominal pain about 4/10 in severity. Since yesterday she is having mild headache. Has some chronic cough. Denies any chest pain or shortness of breath. Usually constipated. Not micturating much. In the ER when she came in her heart rate was in 150s. She received 1 L fluid bolus. Current heart rate is in 120s. Resting comfortably. Tachycardia History of POTS Possible dehydration from not doing the TPN for last couple of days As soon as she hooked her TPN she had tachycardia heart rate 180s and also spiked temperatures for last couple of days and she felt better after unhooking it so she was not using TPN Was worried about line infection No temperature spike, no leukocytosis, procalcitonin is okay Central lines site looks okay G-tube site looks okay Blood cultures ordered in the ER Received fluid bolus in the ER We will continue with IV fluids Close monitoring telemetry Consult cardiology in a.m. GI dysmotility Malnutrition Consult pharmacy for PPN for now We will try to use TPN when patient is more stable History of anemia History of IV iron infusions Hemoglobin stable currently DVT prophylaxis Heparin subcu Disposition Telemetry floor Full code Addendum: Two sets Blood cultures growing Gram positive cocci in chains. Seems Enterococcus. Started on IV Zosyn. Follow final cultures.ID consult. History of Present Illness Chief Complaint: Tachycardia Primary Care Provider: Meek Lopez MD 27-year-old female with past medical history significant for Jaqui-Danlos disease, GI dysmotility currently on TPN, malnutrition, POTS, history of fungemia in June 2021 treated with IV antibiotics and Port-A-Cath exchange, patient is s/p G-tube placement and was on tube feeds for some time but could not tolerate them and currently back on TPN presents with tachycardia. Patient states last couple of days whenever she is try to do TPN heart rate was going up to 180s and spiking temperature and as soon as she unhooked the TPN she was feeling okay. Because of that she could not give her TPN for last couple of days and she is worried about infection and came to the ER. Patient states that she does TPN 2.8 L including normal saline every night for 14 hours after that she gets 1 L of dextrose. She eats 1 small meal every day in the evening. Last couple of days she did not eat any meal and she is feeling hungry and she wants to try to eat now. Denies any fevers. Her nausea is same as before. She has a constant chronic abdominal pain about 4/10 in severity. Since yesterday she is having mild headache. Has some chronic cough. Denies any chest pain or shortness of breath. Usually constipated. Not micturating much. In the ER when she came in her heart rate was in 150s. She received 1 L fluid bolus. Current heart rate is in 120s. Resting comfortably. Past medical history. As mentioned above Past surgical history. EGD. EGD with biopsy. IR gastrointestinal ostomy. Mediport. Left knee arthroscopy. Tympanostomy tubes. Social history. No smoking. No alcohol use. No drug use. Family history. Adopted. Allergies Allergy/AdvReac Type Severity Reaction Status Date / Time diphenhydramine Allergy Severe Urticaria, Verified 07/03/23 20:55 [From Benadryl] severe anxiety, jittery iron [From Venofer] Allergy Severe Abdominal Verified 07/03/23 20:55 Pain prochlorperazine Allergy Severe Anaphylaxis Verified 07/03/23 20:55 [From Compazine] adhesive Allergy Intermediate Redness, Verified 07/03/23 20:55 swelling gluten Allergy Intermediate Hives, GI Verified 07/03/23 20:55 upset peanut Allergy Intermediate Itchy Verified 07/03/23 20:55 throat tree nut Allergy Intermediate Itchy Verified 07/03/23 20:55 throat pollen extracts Allergy Mild Itchy Verified 07/03/23 20:55 eyes, sneezing, congestion chlorhexidine Allergy Unknown Unknown Verified 07/03/23 20:55 Latex, Natural Rubber AdvReac Intermediate Redness, Verified 07/03/23 20:55 itchy Home Medications Medication Instructions Recorded Confirmed Type famotidine 20 mg tablet 20 mg PO BID 04/09/21 07/03/23 History fludrocortisone 0.1 mg tablet 0.1 mg PO QAM 04/09/21 07/03/23 History loratadine 10 mg tablet 10 mg PO QAM 04/09/21 07/03/23 History montelukast 10 mg tablet 10 mg PO HS 04/09/21 07/03/23 History (Singulair) ondansetron HCl 8 mg tablet 8 mg PO Q8 PRN Nausea 04/09/21 07/03/23 History linaclotide 145 mcg capsule 145 mcg PO QAM PRN Constipation 01/02/22 07/03/23 History (Linzess) cholecalciferol (vitamin D3) 1,250 1,250 mcg PO WK 01/13/23 07/03/23 History mcg (50,000 unit) capsule granisetron HCl 1 mg tablet 1 mg PO Q12H 05/07/23 07/03/23 History Past Med/Surg History Medical History Abdominal pain, chronic, epigastric chronic Anemia Central venous catheter in place broke- clamped in ER, taped around site Chronic pain Jaqui-Danlos disease Dx several years ago Gastrointestinal dysmotility Gastroparesis History of COVID-19 02/2022, not hospitalized Jejunostomy tube present placed October 2020 Neuropathy legs On total parenteral nutrition (TPN) POTS (postural orthostatic tachycardia syndrome) Reactive hypoglycemia dexcom present to left arm Severe malnutrition 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 Surgical History H/O wisdom tooth extraction H/O wrist surgery right History of esophagogastroduodenoscopy (EGD) History of myringotomy History of surgery (06/24/21) Removal of Right Tunneled Central Line in Internal Jugular Catheter S/P knee surgery Left Family History Other Adopted Social History Smoking Status: Never smoker Second Hand Exposure: No; Do You Dip or Chew Tobacco: No; Hx Alcohol Use: Yes Alcohol type: hard liquor Hx Substance Use: No Preferred Language: Georgian Communication Ability: Effective Appliance Servicer Required: No Beliefs That Will Affect Care: None Current Living Situation: Family Current Living Situation Comment: Lives w/ family at home Other Information That Helps Us Care for You: No Feels Safe at Home: Yes Safety Concerns: Feels Safe At This Time Assistive Devices: None Review of Systems Review of Systems: All systems reviewed & are unremarkable except as noted in HPI & below Physical Exam Physical Exam: General- Not in acute distress Head- atraumatic Eyes- PERRL. ENT- oropharynx clear Neck- supple, no JVD Lungs- clear to auscultation no wheezing or crackles. Heart- regular rhythm;tachycardia no murmur, no gallop, Right sided chest central line seen. No obvious erythema or drainage around line seen. Abdomen- normal bowel sounds, soft, nontender, no distension. G tube site no erythema or drainage seen. Extremities- no pretibial edema, no erythema seen. Neuro- alert, oriented x 3; PERRL, no facial palsy; no dysarthria; moves extremities. Skin- warm & dry Results & Data Results & Data Vital Signs (Past 12 Hours) Vital Signs Temp Pulse Pulse Resp BP BP Pulse Ox 07/04/23 00:30 122 H 21 118/87 99 07/04/23 00:30 121 H 07/04/23 00:00 117 H 19 119/88 99 07/03/23 23:30 123 H 19 105/72 100 07/03/23 23:00 125 H 16 113/83 99 07/03/23 22:30 124 H 24 117/88 100 07/03/23 22:00 124 H 24 117/91 95 07/03/23 21:30 117 H 19 108/72 96 07/03/23 21:00 124 H 23 114/69 100 07/03/23 20:31 117 H 07/03/23 20:26 120 H 20 110/89 100 07/03/23 18:11 36.7 C 152 H 20 128/81 99 O2 Del Method 07/04/23 00:30 Room Air 07/04/23 00:30 07/04/23 00:00 Room Air 07/03/23 23:30 Room Air 07/03/23 23:00 Room Air 07/03/23 22:30 Room Air 07/03/23 22:00 Room Air 07/03/23 21:30 Room Air 07/03/23 21:00 Room Air 07/03/23 20:31 07/03/23 20:26 Room Air 07/03/23 18:11 Room Air Diagnostic Findings Laboratory Results WBC 5.89 K/ul (4.8-10.8) 07/03/23 18:31 RBC 5.02 M/uL (4.20-5.40) 07/03/23 18:31 Hgb 14.6 g/dl (12.0-16.0) 07/03/23 18:31 Hct 45.4 % (37.0-47.0) 07/03/23 18:31 MCV 90.4 fL (80.0-100.0) 07/03/23 18:31 MCH 29.1 pg (25.0-34.0) 07/03/23 18:31 MCHC 32.2 g/dL (32.0-36.0) 07/03/23 18:31 RDW Std Deviation 41.2 fL (36.4-46.3) 07/03/23 18:31 RDW Coeff of Priscilla 12.6 % (11.5-14.5) 07/03/23 18:31 Plt Count 316 K/uL (130-400) 07/03/23 18:31 MPV 9.1 fL (9.4-12.4) L 07/03/23 18:31 Immature Gran % (Auto) 0.3 % 07/03/23 18:31 Neut % (Auto) 79.4 % 07/03/23 18:31 Lymph % (Auto) 14.8 % 07/03/23 18:31 [place] % (Auto) 5.1 % 07/03/23 18:31 Eos % (Auto) 0.2 % 07/03/23 18:31 Baso % (Auto) 0.2 % 07/03/23 18:31 Neut # (Auto) 4.68 K/uL (1.40-6.50) 07/03/23 18:31 Lymph # (Auto) 0.87 K/uL (1.20-3.40) L 07/03/23 18:31 [place] # (Auto) 0.30 K/uL (0.11-0.59) 07/03/23 18:31 Eos # (Auto) 0.01 K/uL (0.00-0.50) 07/03/23 18:31 Baso # (Auto) 0.01 K/uL (0.00-0.20) 07/03/23 18:31 Immature Gran # (Auto) 0.02 K/uL (0.01-0.20) 07/03/23 18:31 Sodium 138 mmol/L (136-145) 07/03/23 18:31 Potassium 3.6 mmol/L (3.5-5.1) 07/03/23 18:31 Chloride 102 mmol/L (98-107) 07/03/23 18:31 Carbon Dioxide 26 mmol/L (21-32) 07/03/23 18:31 Anion Gap 10 (3-11) 07/03/23 18:31 BUN 16 mg/dl (6-23) 07/03/23 18:31 Creatinine 0.79 mg/dl (0.6-1.2) 07/03/23 18:31 Est Cr Clr Drug Dosing 79.9 ml/min 07/03/23 18:31 Est GFR ( Amer) 120.6 ml/min 07/03/23 18:31 Est GFR (Non-Af Amer) 104.0 ml/min 07/03/23 18:31 BUN/Creatinine Ratio 20.3 (10-20) H 07/03/23 18:31 Glucose 81 mg/dl (70-99(Fasting)) 07/03/23 18:31 Lactate 1.3 mmol/L (0.4-2.0) 07/03/23 18:34 Calcium 9.7 mg/dl (8.6-10.3) 07/03/23 18:31 Magnesium 2.0 mg/dl (1.7-2.4) 07/03/23 18:31 Total Bilirubin 0.7 mg/dl (0.2-1.0) 07/03/23 18:31 Direct Bilirubin 0.1 mg/dl (0-0.2) 07/03/23 18:31 AST 38 U/L (13-39) 07/03/23 18:31 ALT 67 U/L (7-52) H 07/03/23 18:31 Alkaline Phosphatase 99 U/L (34-104) 07/03/23 18:31 Troponin I High Sens 3.5 pg/ml (0-14) 07/03/23 18:31 Total Protein 8.9 gm/dl (6.0-8.3) H D 07/03/23 18:31 Albumin 5.0 gm/dl (3.4-5.0) 07/03/23 18:31 Procalcitonin 0.08 ng/ml (0-0.5) 07/03/23 18:31 Adenovirus (PCR) Not Detected (NotDetected) 07/03/23 18:31 B. pertussis DNA (PCR) Not Detected (NotDetected) 07/03/23 18:31 B.parapertussis DNA PCR Not Detected (NotDetected) 07/03/23 18:31 C. pneumoniae DNA (PCR) Not Detected (NotDetected) 07/03/23 18:31 Coronavirus OC43 (PCR) Not Detected (NotDetected) 07/03/23 18:31 Coronavirus HKU1 (PCR) Not Detected (NotDetected) 07/03/23 18:31 Coronavirus 229E (PCR) Not Detected (NotDetected) 07/03/23 18:31 SARS-CoV-2 (PCR) Not Detected (NotDetected) 07/03/23 18:31 Coronavirus NL63 (PCR) Not Detected (NotDetected) 07/03/23 18:31 Human Metapneumovir PCR Not Detected (NotDetected) 07/03/23 18:31 Influenza Type A (PCR) Not Detected (NotDetected) 07/03/23 18:31 Influenza Type B (PCR) Not Detected (NotDetected) 07/03/23 18:31 M. pneumoniae (PCR) Not Detected (NotDetected) 07/03/23 18:31 Parainfluenza 1 (PCR) Not Detected (NotDetected) 07/03/23 18:31 Parainfluenza 2 (PCR) Not Detected (NotDetected) 07/03/23 18:31 Parainfluenza 3 (PCR) Not Detected (NotDetected) 07/03/23 18:31 Parainfluenza 4 (PCR) Not Detected (NotDetected) 07/03/23 18:31 RSV (PCR) Not Detected (NotDetected) 07/03/23 18:31 Entero/Rhino (PCR) Not Detected (NotDetected) 07/03/23 18:31 Impressions Chest X-Ray 07/03/23 18:14 XR chest 1V portable CLINICAL HISTORY: Sepsis TECHNIQUE: Single frontal radiograph of the chest was obtained. Comparison: Comparison is made to chest radiograph 06/29/2021 FINDINGS: Lines and tubes are stable. The cardiomediastinal silhouette is normal. The lung s are clear. No evidence of pleural effusion or pneumothorax. IMPRESSION: No acute chest disease. ACT 112: Negative or not required by law. Electronically signed by: Nirmal Lopez M.D. 07/03/2023 9:23 PM Chest CTA 07/03/23 20:55 Exam(s): CTA CHEST IV Amt: 66 ml opti 320 EXAM: CT Angiography Chest With Intravenous Contrast CLINICAL HISTORY: Reason for exam: PE. TECHNIQUE: Axial computed tomographic angiography images of the chest with intravenous contrast. CTDI is 17.95 mGy and DLP is 262.76 mGy-cm. Automated exposure control was utilized for the study. A dose lowering technique was utilized adhering to the principles of ALARA. MIP reconstructed images were created and reviewed. COMPARISON: No relevant prior studies available. FINDINGS: Pulmonary arteries: Unremarkable. No pulmonary embolism. Aorta: No acute findings. No thoracic aortic aneurysm. Lungs: Unremarkable. No mass. No consolidation. Pleural space: Unremarkable. No significant effusion. No pneumothorax. Heart: Unremarkable. No cardiomegaly. No significant pericardial effusion. No evidence of RV dysfunction. Bones/joints: No acute fracture. No dislocation. Soft tissues: Unremarkable. Lymph nodes: Unremarkable. No enlarged lymph nodes. Tubes, lines and devices: Right-sided central venous catheter terminates in the SVC. IMPRESSION: No acute findings in the visualized arteries of the chest. Electronically signed by: Neno Montgomery MD 07/03/23 23:47 PM ECG Additional Comments: ECG. Sinus tachycardia rate of 124. No significant change was found Code Status & VTE Plan VTE Prophylaxis Plan VTE Prophylaxis will be ordered: Yes
[2023-07-04 02:05] LABS: Appearance Urine Cloudy (Clear); Bacteria Urine Automated Negative (Negative); Bilirubin Urine Negative (Negative); Blood Urine Negative (Negative); Color Urine Yellow; Epithelial Cell Urine Auto >30 /lpf (0-5); Glucose Urine UA Negative (Negative); Ketones Urine 2+ (Negative); Leukocyte Esterase Urine Trace (Negative); Nitrite Urine Negative (Negative); Protein Urine Negative (Negative); Specific Gravity Urine 1.044 (1.000-1.030); Urobilinogen Urine Negative (Negative); pH Urine 5.5 (4.5-7.5)
[2023-07-04] MEDS ORDERED: POLYETHYLENE (MIRALAX) 17 GM PACK PO PRN (02:14)
[2023-07-04] MEDS ORDERED: GRANISETRON HCL 1 MG PO SCH (02:14)
[2023-07-04] MEDS ORDERED: ACETAMINOPHEN 325 MG TAB PO PRN (02:14)
[2023-07-04] MEDS ORDERED: ONDANSETRON INJ 2 MG/ML 2 ML VIAL IV PRN (02:14)
[2023-07-04] MEDS ORDERED: NITROGLYCERIN SL 0.4 MG/TAB TAB SL PRN (02:14)
[2023-07-04] MEDS ORDERED: LINACLOTIDE 145 MCG CAPSULE PO PRN (02:14)
[2023-07-04 02:25] LABS: RBC Urine Automated 0-4 /hpf (0-4)
[2023-07-04] MEDS ORDERED: TPN/PPN CONSULT PHARMACY PRN (02:35)
[2023-07-04] MEDS: D5W AND NSS 1,000 ML IV SCH ×3 (02:36→17:06)
--- OUTSIDE RECORDS SUMMARY | 2023-07-04 03:45 | External Medical Summary | Continuity of Care Document ---
Author Name Unknown Organization [facility] Address [address] [place] [id number] Care Team Providers Care Carbon Setter Name Role Phone Meek Lopez Primary Care Physician [phone] [id number] Date(s): 06/17/23 - 06/17/[address] [phone] Discharge Disposition: Home or Self Care Attending Physician: TANNA [place] Elizabeth A Referring Physician: TANNA [place] Elizabeth A Allergies, Adverse Reactions, Alerts Substance Reaction Severity Status scopolamine Severe Blurry Vision Active Compazine Rash Skin irritation Active gluten Unknown Active Benadryl Skin rash Active Adhesive bandage Blister Rash Itching Active eggs Unknown Active milk products Unknown Active peanuts Unknown Active wheat Unknown Active Latex Blisters Itching Rash Unknown Active Allergy Not found in Search 1 Fruits and Vegetables Active 1Numerous fruits and vegatables Medications famotidine 20 mg oral tablet Start: 04/03/21 10:46:00 EDT, 1 tab, PO, bid Start Date: 04/03/21 Status: Ordered Florinef Acetate 0.1 mg oral tablet Start: 04/10/22 13:07:00 EDT, 1 tab, PO, Daily, Disp# 90 tab, Refills: 3, [facility] Start Date: 04/10/22 Status: Ordered granisetron 1 mg oral tablet Start: 05/16/23 8:02:00 EDT Start Date: 05/16/23 Status: Ordered Linzess Start: 03/05/22 11:17:00 EDT, 72 mcg =, Daily Start Date: 03/05/22 Status: Ordered loratadine 10 mg oral tablet Start: 04/03/21 10:48:00 EDT, 1 tab, PO, Daily Start Date: 04/03/21 Status: Ordered montelukast 10 mg oral tablet Start: 04/03/21 10:47:00 EDT, 1 tab, PO, qPM Start Date: 04/03/21 Status: Ordered omeprazole 20 mg oral delayed release capsule Start: 04/03/21 10:46:00 EDT, 1 cap, PO, bid Start Date: 04/03/21 Status: Ordered Saline liter Start: 08/30/21 9:04:00 EST, Saline liter, IV, Daily Start Date: 08/30/21 Status: Ordered TPN Start: 08/30/21 9:03:00 EST, TPN, 18 hours Start Date: 08/30/21 Status: Ordered Problem List Condition Confirmation Course Effective Dates Status Health St atus Informant Diarrhea Confirmed Active Dizziness Confirmed Active Jaqui-Danlos syndrome type III Confirmed Active Indigestion Confirmed Active Colonic inertia 1 Confirmed Active Nausea Confirmed Active H pylori ulcer Confirmed Active 1Dr [facility] Procedures Procedure Date Related Diagnosis Body Site Status Upper GI endoscopy 12/28/20 Comple kenia Echocardiogram Completed Electrocardiogram Complet ed Endoscopy X 2 Completed Knee surg Completed Meniscectomy Completed Procedure, N-J tube Compl eted Surgery Completed Crocker teeth extraction C ompleted Wrist Completed Results Radiology Reports * Exam Date Time Procedure Performing Provider Status 06/17/23 12:34 PM XR Upper GI w/ Air w/ Small Bowel Ayaka Luque; Final Notes: (XR Upper GI w/ Air w/ Small Bowel) Reason For Exam: chronic abdominal pain XR Upper GI w/ Air w/ Small Bowel EXAMINATION: XR Upper GI w/ Air w/ Small Bowel CLINICAL HISTORY: R10.9: Unspecified abdominal pain; please send results and disc to Vivek Schultz MD \ .br\ [facility]\ .br\ [address] .br\ [place] [address]\ .br\ \ .br\ please try to arrange for mesenteric duplex on the same day chronic abdominal pain COMPARISON: Outside CT angiogram 06/01/2020 TECHNIQUE: The patient was evaluated utilizing effervescent crystals, thick barium, and thin barium. The patient was fully cooperative. FLUOROSCOPY TIME: EXAMINATION: XR Upper GI w/ Air w/ Small Bowel CLINICAL HISTORY: chronic abdominal pain COMPARISON: None TECHNIQUE: The patient was evaluated utilizing effervescent crystals, thick barium, and thin barium. The patient was fully cooperative. FLUOROSCOPY TIME: 5.07 FINDINGS: The colorist photography abdominal radiograph: Gastrojejunostomy and a double-lumen central venous access catheterin place There is normal esophageal motility. There is no reflux, however, reflux may be intermittent. Thereis no esophagitis. Note that direct visualization is more sensitive for detection of esophagitis. There is no esophageal stricture or dilation. There is suboptimal coating the gastric mucosa. Patient experienced nausea during the initial portion of the examination limiting the amount of thick barium that could be imbibed. There is progression of contrast into the proximal small bowel, however, there is an area of narrowing in the region of pylorus which appears to be somewhat flow limiting. Unclear if this reflects persistent contractions or stenosis (best seen on series 31 and 32). Direct visualization recommended. Duodenum appears normal without stricture or dilation. Remainder of the small bowel appears normal.There is normal progression of contrast from the small bowel into the colon with transit time between 38 minutes and 70 minutes, within normal limits. IMPRESSION: 1. Area of narrowing in the region of pylorus which appears to be somewhat flow limiting. Unclear if this is on a basis of persistent contractions or stenosis. Direct visualization recommended. 2. Normal progression of contrast from the small bowel into the colon Dr. Mireya Patton is the dictating resident. Finalized reports status indicates that the attending has reviewed the images and report, and agrees with the interpretation. Preliminary report status should be regarded as NOT interpreted by the attending radiologist. Workstation ID: [id number] Final Dictated by:MD Patton Aroh Jamanadas Dictated DT/TM:06/17/2023 4:39 Resident:MD Patton Aroh Jamanadas Signed by:MD Clayton Jacob A Signed (Electronic Signature):06/17/2023 4:38 p Social History Social History Type Response Smoking Status Never smoked cigaret phuong Sex Female Patient Care team information Care Team Personnel Name: MD Lopez Brett R Position: Referring DIRECT Member Role: Primary Care Provider Address: Address: [address] [place] [address] [place] Care Team Related Persons Name: JENKINS, DIOGO Address: home [address] [place] [address], [phone] Name: ROLANDO JENKINS Address: home [address] [place] [address], [phone] Name: ROLANDO JENKINS Address: [address], [phone]
--- OUTSIDE RECORDS SUMMARY | 2023-07-04 03:45 | External Medical Summary | Summary of Care ---
Author Name Unknown Organization [facility] Address [address] [place] [address] Phone [phone] Care Team Providers Care Track Repair Supervisor Name Role Phone Meek Lopez MD Primary Care Provider [phone]- [phone] Encounter Details Date Type Department Care Team (Late st Contact Info) Description 06/26/2023 Orders Only [facility] [address] [place] [address] Meek Lopez MD [address] [place] [address] Allergies Active Allergy Reactions Criticality Noted Date Comments Bee Pollen Low 06/24/2021 Other Reaction(s): Other: See Comments Other reaction(s): ITCHY EYES, SNEEZING, CONGESTION Diphenhydramine Other (Please comment) 09/24/2022 "Throat itching" "super jittery" Chlorhexidine 02/07/2023 Other Reaction(s): Other: See Comments Food (See Comments) Itching 07/15/2012 Strawberries,banan as,watermelon,cant eloupe, tomatoes, wheat, sesame seeds, egg white, milk, gluten, walnuts, hazlenuts. Most fruits and vegetables in the raw form. Gluten Meal Unknown 06/24/2021 Justicia Adhatoda 06/24/2021 Other reaction(s): Unknown Lactose 07/15/2012 Other Reaction(s): GI Upset Lactose Intolerance (Gi) 07/15/2012 Latex Edema Other,Itching 08/29/2020 Pt states site become red, swollen, and itching occures. Peanut-Containing Drug Products Nausea/vomiting,Oth er (Please comment) 07/04/2020 Slight throat itching Pollen Extract Low 06/24/2021 Other reaction(s): ITCHY EYES, SNEEZING, CONGESTION Prochlorperazine Anaphylaxis High 05/02/2021 Other reaction(s): Other (see comments) Chest pain Scopolamine Rash 05/02/2021 Other reaction(s): Itching, Other (see comments) Blurry vision Tomato Itching 08/29/2020 Iron Sucrose High 01/24/2023 Wound Dressing Adhesive 07/04/2021 documented as of this encounter (statuses as of 06/26/2023) Medications Medication Sig Dispensed Refills Start Date End Date Status Loratadine 10 MG Oral Tablet (Claritin) Take 1 Tablet by mouth in the morning. 0 Active Famotidine 20 MG Oral Tablet (Pepcid) Take 1 Tablet by mouth in the morning and 1 Tablet before bedtime. 0 Active Montelukast Sodium 10 MG Oral Tablet (Singulair) Take 1 Tablet by mouth at bedtime. 0 Active Fludrocortisone Acetate 0.1 MG Oral Tablet (Florinef) Take 1 Tablet by mouth in the morning. 0 03/15/2021 Active Enteral Nutrition Supplies Supplies needed to maintain feeding tube via bolus syringe, and for enteral nutrition through feeding tube via feeding pump. 1 Each 11 06/20/2021 Active Thiamine HCl 100 MG Oral Tablet (vitamin B-1) Take 1 Tablet by mouth in the morning. For 7 days. 0 Active Linzess 145 MCG Oral Capsule take 1 capsule by mouth every morning before breakfast 0 12/26/2021 Active Enteral Nutrition Supplies Supplies needed for maintenance of feeding tube via bolus syringe. 1 Each 11 05/29/2022 Active Dexcom G6 Building Admin DeviceIndications :Hypoglycemia Use as directed. 1 Each 0 08/02/2022 Active Omeprazole 20 MG Oral Capsule Delayed Release (PriLOSEC) take 1 capsule by mouth IN THE MORNING and take 1 capsule by mouth BEFORE BEDTIME 60 Capsule 3 08/22/2022 Active Cholecalciferol 1.25 MG (33864 UT) Oral CapsuleIndication s:Vitamin D deficiency Take 1 Capsule by mouth once a week. 12 Capsule 1 08/30/2022 Active Granisetron HCl 1 MG Oral Tablet (Kytril) Take 1 Tablet by mouth in the morning and 1 Tablet before bedtime. 0 04/30/2023 07/29/2023 Active Aprepitant 80 MG Oral Capsule (Emend) Take 1 Capsule by mouth in the morning. 0 04/30/2023 Active Physicians EZ Use B-12 1000 MCG/ML Injection Kit (Cyanocobalamin) 1,000 mcg. 0 Active Cyanocobalamin 1000 MCG/ML Injection Solution (Cyanocobalamin)I ndications:B12 deficiency Inject 1,000 mcg into a large muscle every 30 days. 1 mL 11 06/13/2023 Active Syringe Luer Lock 25G X 5/8" 3 MLIndications:B12 deficiency For vitamin b12 injections 1 Each 11 06/13/2023 Active Dexcom G6 SensorIndications :Hypoglycemia Use as directed. 9 Each 3 06/20/2023 Active Dexcom G6 TransmitterIndica tions:Hypoglycemi a Use as directed. 1 Each 0 06/20/2023 Active Compleat Oral Liquid 6 cartons daily via J tube, goal rate 70 ml/hr continuous, as tolerated 83032 mL 1 06/20/2023 Active documented as of this encounter (statuses as of 06/26/2023) Active Problems Problem Noted Date Diagnosed Date On total parenteral nutrition (TPN) 06/16/2023 Other vitamin B12 deficiency anemias 05/24/2022 Other iron deficiency anemias 05/17/2022 Generalized intestinal dysmotility 08/29/2021 Chronic pain syndrome 05/28/2021 De Quervain's disease (tenosynovitis) 12/15/2020 Encounter for gastrojejunal (GJ) tube placement 10/16/2020 Underweight 08/28/2020 Unintentional weight loss of 7.5% body weight or less within 3 months 08/28/2020 Severe protein-calorie malnutrition 08/28/2020 Jaqui-Danlos, 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 pylori infection 04/15/2012 07/16/19 21 documented as of this encounter (statuses as of 06/26/2023) Immunizations Name Administration Dates Next Due COVID-19 mRNA, LNP-s, No Pre serve, 2-Dose Series (Moderna) 06/20/2021,11/20/2020,10/21/2020 Seasonal Influenza, PF, 6 M & above, IM , (FluLaval or Fluzone) 05/26/2023 Seasonal Influenza, Quadriva lent, No Preserve, Mdck 06/13/2022,05/23/2020 documented as of this encounter Social History Tobacco Use Types Packs/Day Years Used Date Smoking Tobacco: Never Smokeless Tobacco: Never Alcohol Use Standard Drinks/Week Comments No 0 (1 standard drink = 0.6 oz pur e alcohol) Hunger Vital Sign Answer Date Recorded Within the past 12 months, y ou worried that your food would run out before you got the money to buy more. Never true 07/19/19 23 Within the past 12 months, t he food you bought just didn't last and you didn't have money to get more. Never true 07/19/2022 Sex and Gender Information Value Date Recorded Sex Assigned at Female 05/25/2022 7:55 PM EST Gender Identity Female 05/25/2022 7:55 PM EST Sexual Orientation Straight 05/25/2022 7: 55 PM EST Job Start Date Occupation Industry Not on file Not on file Not on file documented as of this encounter Functional Status Functional Status Response Date of Assess ment Are you deaf or do you have serious difficulty h earing? No 10/16/2020 Are you blind or do you have serious difficulty seeing, even when wearing glasses? No 10/16/2020 Do you have serious difficul ty walking or climbing stairs? (5 years old or older) No 10/16/2020 Do you have difficulty dress ing or bathing? (5 years old or older) No 10/16/2020 Because of a physical, menta l, or emotional condition, do you have difficulty doing errands alone such as visiting a doctor s office or shopping? (15 years old or older) No 10/17/19 Cognitive Status Response Date of Assessm ent Because of a physical, menta l, or emotional condition, do you have serious difficulty concentrating, remembering, or making decisions? (5 years old or older) No 10/16/2020 documented as of this encounter Plan of Treatment Upcoming Encounters Date Type Department Care Team (Late st Contact Info) Description 07/11/2023 10:30 AM EST Immunization/Injectio n Hematology/Oncology [facility], [place] [address] [facility] [address] [facility], Med [address] [place] [address] 07/22/2023 2:30 PM EST [facility], [facility] [address] [facility] [id number] [facility] [address] [facility] [address] 08/08/2023 10:30 AM EST Immunization/Injectio n Hematology/Oncology Treatment, [place] [address] [facility] [address] Nurse, Med [address] [facility] [place] [address] 09/24/2023 12:20 PM EDT Office Visit [facility] [address] [place] [phone] Meek Lopez MD [address] [place] [address] 09/25/2023 1:00 PM EDT Appointment Interventional Radiology [facility], Annette Figueroa [address] [place] [address] 05/26/2024 1:00 PM EST Office Visit Rheumatology [facility] [address] [facility] [place] [address] Jean Rodríguez MD [address] [facility] [place] [address] Health Maintenance Due Date Last Done Comments Hepatitis B (1 of 3 - 3-dose series) 1997 GARDASIL-HPV IMMUNIZATION SERIES (1 - 2-dose series) 2008 Depression Screening 2009 HIV Screening 2012 Hepatitis C Screening 09/24/2015 DTaP,Tdap,and Td Vaccines (1 - Tdap) 2016 Pap Smear 2018 COVID-19 Vaccine (4 - 2022-24 season) 2023 06/20/2021, 11/20/2020, 10/21/2020 Influenza Vaccine (FLU shot) Completed , 06/13/2022, 06/13/2022, Additional history exists MENINGOCOCCAL (MENACTRA/MENVEO) Aged Out No longer eligible based on patient's age to complete this topic Pneumococcal Vaccine: Pediatrics (0 to 5 Years) and At-Risk Patients (6 to 64 Years) Aged Out No longer eligible based on patient's age to complete this topic documented as of this encounter Medical Devices Implanted Type Area Brusher Tender Device Identifier Shelf Expiration Date Model / Serial / Lot Tube Feed 16f 45 - [id number] Implanted:Qty : 1 on 10/16/2020 at [facility] Left: Abdomen [facility] [id number] 08/09/2021 0250-16 / / [id number] documented as of this encounter Procedures Procedure Name Priority Date/Time Associated Diagnosis Comments CHEMISTRY-OUTSIDE Routine 06/25/2023 documented in this encounter Results * CHEMISTRY-OUTSIDE (06/25/2023) Not all results display below - see scan for full detail OUTSIDE LAB (SEE SCANNED REPORT) Comment:SEE SCAN; CMP, TRIG, CBC CREATININE-OUTSID E LAB 0.60 0.6 - 1.2 MG/DL OUTSIDE LAB (SEE SCANNED REPORT) EGFR-OUTSIDE LAB 126.7 ML/MIN OUT SIDE LAB (SEE SCANNED REPORT) POTASSIUM-OUTSIDE LAB 4.2 3.5 - 5.1 MMOL/L OUTSIDE LAB (SEE SCANNED REPORT) GLUCOSE-OUTSIDE LAB 89 70 - 99 MG/DL OUTSIDE LAB (SEE SCANNED REPORT) HOURS FASTING OUTSID E LAB (SEE SCANNED REPORT) TRIGLYCERIDES-OUT SIDE LAB 77 0 - 150 MG/DL OUTSIDE LAB (SEE SCANNED REPORT) CHOLESTEROL-OUTSI DE LAB OUTSIDE LAB (SEE SCANNED REPORT) HDL-OUTSIDE LAB OUTS [facility] (SEE SCANNED REPORT) CHOL/HDL RATIO-OUTSIDE LAB OUTSIDE LA B (SEE SCANNED REPORT) LDL (CALCULATED)-OUTS [facility]ANI[facility] LAB OUTSIDE LAB (SEE SCANNED REPORT) LDL (DIRECT MEASURE)-OUTSIDE LAB OUTSIDE LAB (SEE SCANNED REPORT) HEMOGLOBIN, L9K-RCHOZTD LAB OUTSIDE LAB (SEE SCANNED REPORT) PHOSPHORUS-OUTSID E LAB 4.2 2.5 - 4.9 MG/DL OUTSIDE LAB (SEE SCANNED REPORT) PTH-OUTSIDE LAB OUTS DANIEL LAB (SEE SCANNED REPORT) MICROALBUMIN RATIO-OUTSIDE LAB OUTSIDE LA B (SEE SCANNED REPORT) PROTEIN, UA-OUTSIDE LAB OUTSIDE LAB (SEE SCANNED REPORT) HEMOGLOBIN-OUTSID E LAB 12.2 12 - 16 G/DL OUTSIDE LAB (SEE SCANNED REPORT) 06/25/2023 History Per Patient LABORATORY OUTSIDE LAB (SEE SCANNED REPORT) documented in this encounter Advance Directives Latest Code Status on File Code Status Date Activated Date Inactivated Comments Full Code 10/16/2020 6:15 PM 10/17/2020 5:46 PM This or gloria reflects the patients wishes and were consensually agreed upon. Question Answer Comments Discussion of Advance Directives occurred with: Patient/Family Does the patient have a Living Will? No Does the patient have Health Care Power of Senior Maintenance Machinist? No Code Status History Code Status Date Activated Date Inactivated Comments Full Code 08/29/2020 12:26 PM 09/06/2020 7:08 PM Question Answer Comments Discussion of Advance Direct albert occurred with: Not Discussed Does the patient have a Living Will? No Does the patient have Health Care Power of Senior Maintenance Machinist? No Care Teams Track Repair Supervisor Relationship Specialty Start Date End Date Meek Lopez MD [address] [place] [address] PCP - General Family Medicine 03/17/20 documented as of this encounter
--- OUTSIDE RECORDS SUMMARY | 2023-07-04 03:45 | External Medical Summary | Summary of Care ---
Author Name Unknown Organization [facility] Address [address] [place] [address] Phone [phone] Care Team Providers Care Developmental Training Counselor Name Role Phone Meek Lopez MD Primary Care Provider [phone] Reason for Visit * Reason Onset Date Comments Status Check Return in [address] [place] [address] Medication Administration 05/26/2023 Flu an d/or Pneumo Inj Encounter Details Date Type Department Care Team (Late st Contact Info) Description 05/26/2023 1:00 PM EST Office Visit [facility] [address] [place] [address] Meek Lopez MD [address] [place] [address] Jaqui-Danlos, hypermobile type*; Need for prophylactic vaccination and inoculation against influenza; Generalized intestinal dysmotility; Severe protein-calorie malnutrition (HCC) Allergies Active Allergy Reactions Criticality Noted Date [...] as of this encounter (statuses as of 06/16/2023) Medications Medication Sig Dispensed Refills Start Date [...] feeding tube via bolus syringe. 1 Each 05/29/2022 Active Dexcom G6 Ground Support Agent DeviceIndications:H ypoglycemia Use as directed. 1 Each 0 08/02/2022 Active Omeprazole 20 MG Oral Capsule Delayed Release (PriLOSEC) take 1 capsule by mouth IN THE MORNING and take 1 capsule by mouth BEFORE BEDTIME 60 Capsule 3 08/22/2022 Active Cholecalciferol 1.25 MG (84191 UT) Oral CapsuleIndications: Vitamin D deficiency Take 1 Capsule by mouth once a week. 12 Capsule 1 08/30/2022 Active Dexcom G6 SensorIndications:H ypoglycemia Use as directed. 9 Each 3 12/23/2022 Active Granisetron HCl 1 MG Oral Tablet (Kytril) Take 1 Tablet by mouth in the morning and 1 Tablet before bedtime. 0 04/30/2023 4 Active Naltrexone 3 MG OR Capsule Take 2mg daily for 1 week, 3mg daily for 1 week then 4.5mg daily 30 Capsule 2 05/28/2022 3 Discontinu ed(Patient preference /discontin uation) Ondansetron 4 MG Oral Tablet Disintegrating (Zofran) Place 2 Tablets on tongue every 8 hours as needed for Nausea. dissolve on tongue. 180 Tablet 1 10/28/2022 3 Discontinu ed(Patient preference /discontin uation) documented as of this encounter (statuses as of 06/16/2023) Active Problems Problem Noted Date Diagnosed Date [...] as of this encounter (statuses as of 06/16/2023) Resolved Problems Problem Noted Date Diagnosed Date Resolved Date H. pylori infection 04/15/2012 01/03/20 21 documented as of this encounter (statuses as of 06/16/2023) Immunizations Name Administration Dates Next Due COVID-19 mRNA, LNP-s, No Pre serve, 2-Dose Series (Moderna) 06/20/2021,11/20/2020,10/21/2020 SEASONAL INFLUENZA, PF, 6 M & Above, IM , (FLULAVAL or FLUZONE) 05/26/2023 Seasonal Influenza, Quadriva lent, No Preserve, Mdck 06/13/2022,05/23/2020 documented as of this encounter Social History Tobacco Use Types Packs/Day Years Used Date Smoking Tobacco: Never Smokeless Tobacco: Never Tobacco Cessation:Counseling Given: Not Answered Alcohol Use Standard Drinks/Week Comments No 0 [...] on file documented as of this encounter Last Filed Vital Signs Vital Sign Reading Time Taken Comments Blood Pressure 102/60 05/26/2023 12:54 PM EST Pulse 102 05/26/2023 12:54 PM EST Temperature 36.2 C (97.1 F) 05/26/2023 12:[address] Respiratory Rate 20 05/26/2023 12:54 PM EST Oxygen Saturation 100% 05/26/2023 12:54 PM EST Inhaled Oxygen Concentration - - Weight 46.4 kg (102 lb 3.2 oz) 05/26/2023 12:54 PM EST Height 160 cm (5' 3") 05/26/2023 12:54 PM EST Body Mass Index 18.1 05/26/2023 12:54 PM EST documented in this encounter Functional Status Functional Status Response [...] (15 years old or older) No 10/17/19 21 Cognitive Status Response Date of Assessm ent Because of a physical, menta l, or emotional condition, do you have serious difficulty concentrating, remembering, or making decisions? (5 years old or older) No 10/16/2020 documented as of this encounter Patient Instructions * Patient Instructions* Fatimah Houser MED ASSIST - 05/26/2023 1:40 PM EST ~~PATIENT INSTRUCTIONS FOR FLU SHOT~~ Possible side effects of influenza vaccine, (flu shot), are usually mild and include: 1. Soreness or redness at injection site 2. Low grade fever 3. Body aches You may use Tylenol/Acetaminophen as needed for these symptoms. LET YOUR DOCTOR KNOW IMMEDIATELY IF YOU HAVE DIFFICULTY BREATHING OR SWALLOWING, EXPERIENCE ITCHINGOF FEET OR HANDS, HAVE SWELLING OF EYES, FACE OR INSIDE OF NOSE. documented in this encounter Progress Notes * Fatimah Houser MED ASSIST - 05/26/2023 1:39 PM EST PRE - ADMINISTRATION DOCUMENTATION Are you experiencing any cold symptoms or fever? No Have you had Guillain-Richford Syndrome (an illness that causes paralysis) within the last 6 weeks? No Have you had the flu shot in the past? YES Have you ever had a reaction to the flu shot? No FERNANDEZ Recinos, 05/26/2023 1:39 PM Immunization Administration Documentation Time Out Procedure Performed: Yes Patient Identified (Ask Name/Date of ): Yes Does the patient have a fever greater than 101 degrees today? No Patient allergic to latex? No VFC Stock: No Immunization(s) verified: Yes, Immunization Name: Flu, VIS Sheet(s) given: Yes Verified Side and Site: Yes Verified Shot(s) with Parent(s)/Patient: Yes * Meek Lopez MD - 05/26/2023 1:09 PM EST Subjective: Priyanka Mccarthy is a 27 year old female here today for Chief Complaint Patient presents with Status Check Return in 4 months Medication Administration Flu and/or Pneumo Inj Here for routine recheck. Reviewed most recent studies and specialty visits. 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 Feels like "wearing compression." Was shooting pain. No affect on hands. 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 pylori infection 05/04/2012 Lactase deficiency 07/15/2012 Past Surgical History: Procedure Laterality Date EGD, FLEXIBLE, DIAGNOSTIC N/A 01/05/2020 bile reflux seen EGD, FLEXIBLE, DIAGNOSTIC N/A 09/01/2020 ESOPHAGOGASTRODUODENOSCOPY (EGD), FLEXIBLE, TRANSORAL, DIAGNOSTIC performed by Beck Persaud DO at ENDOSCOPY [facility] EGD, FLEXIBLE, W/BIOPSY 05/04/2012 UPPER GI ENDOSCOPY WITH BIOPSY SINGLE OR MULTIPLE performed by Leopoldo Porras III, MD at ENDOSCOPY [facility] INCISION OF TENDON SHEATH Right 12/29/2020 INCISION EXTENSOR TENDON SHEATH WRIST performed by Kobe Moser MD at OR [facility] IR GASTROINTESTINAL OSTOMY 10/16/2020 IR GASTROINTESTINAL OSTOMY 01/26/2021 IR GASTROINTESTINAL OSTOMY 04/27/2021 IR GASTROINTESTINAL OSTOMY 08/16/2021 IR GASTROINTESTINAL OSTOMY 12/17/2021 IR GASTROINTESTINAL OSTOMY 03/19/2022 IR GASTROINTESTINAL OSTOMY 06/26/2022 IR GASTROINTESTINAL OSTOMY 09/24/2022 IR GASTROINTESTINAL OSTOMY 12/26/2022 IR GASTROINTESTINAL OSTOMY 03/28/2023 IR VENOUS ACCESS NON-MEDIPORT 08/30/2020 IR VENOUS ACCESS NON-MEDIPORT 09/05/2020 IR VENOUS ACCESS NON-MEDIPORT 05/30/2021 KNEE ARTHROSCOPY/MENISCECTOMY Left 02/23/2018 TYMPANOSTOMY TUBES Review of patient's allergies indicates: Allergen Reactions Prochlorperazine Anaphylaxis Other reaction(s): Other (see comments) Chest pain Venofer [Iron Sucrose] Benadryl [Diphenhydramine] Other (Please comment) "Throat itching" "super jittery" Chlorhexidine Other Reaction(s): Other: See Comments Food (See Comments) Itching Strawberries,bananas,watermelon,canteloupe, tomatoes, wheat, sesame seeds, egg white, milk, gluten,walnuts, hazlenuts. Most fruits and vegetables in the raw form. Gluten Meal Unknown Justicia Adhatoda ([place] Nut Tree) [Justicia Adhatoda] Other reaction(s): Unknown Lactose Other Reaction(s): GI Upset Lactose Intolerance (Gi) Latex Edema Other and Itching Pt states site become red, swollen, and itching occures. Peanut-Containing Drug Products Nausea/vomiting and Other (Please comment) Slight throat itching Scopolamine Rash Other reaction(s): Itching, Other (see comments) Blurry vision Tomato Itching Wound Dressing Adhesive Bee Pollen Other Reaction(s): Other: See Comments Other reaction(s): ITCHY EYES, SNEEZING, CONGESTION Pollen Extract Other reaction(s): ITCHY EYES, SNEEZING, CONGESTION Current Outpatient Medications Medication Sig Dispense Refill Loratadine 10 MG Oral Tablet (Claritin) Take 1 Tablet by mouth in the morning. Famotidine 20 MG Oral Tablet (Pepcid) Take 1 Tablet by mouth in the morning and 1 Tablet before bedtime. Montelukast Sodium 10 MG Oral Tablet (Singulair) Take 1 Tablet by mouth at bedtime. Fludrocortisone Acetate 0.1 MG Oral Tablet (Florinef) Take 1 Tablet by mouth in the morning. Enteral Nutrition Supplies Supplies needed to maintain feeding tube via bolus syringe, and for enteral nutrition through feeding tube via feeding pump. 1 Each 11 Thiamine HCl 100 MG Oral Tablet (vitamin B-1) Take 1 Tablet by mouth in the morning. For 7 days. Linzess 145 MCG Oral Capsule take 1 capsule by mouth every morning before breakfast Enteral Nutrition Supplies Supplies needed for maintenance of feeding tube via bolus syringe. 1 Each 11 DexFi.tt G6 Ground Support Agent Device Use as directed. 1 Each 0 Omeprazole 20 MG Oral Capsule Delayed Release (PriLOSEC) take 1 capsule by mouth IN THE MORNING andtake 1 capsule by mouth BEFORE BEDTIME 60 Capsule 3 Cholecalciferol 1.25 MG (31935 UT) Oral Capsule Take 1 Capsule by mouth once a week. 12 Capsule 1 Dexcom G6 Sensor Use as directed. 9 Each 3 Granisetron HCl 1 MG Oral Tablet (Kytril) Take 1 Tablet by mouth in the morning and 1 Tablet beforebedtime. Aprepitant 80 MG Oral Capsule (Emend) Take 1 Capsule by mouth in the morning. Dexcom G6 Transmitter Use as directed. Physicians EZ Use B-12 1000 MCG/ML Injection Kit (Cyanocobalamin) 1,000 mcg. Cyanocobalamin 1000 MCG/ML Injection Solution (Cyanocobalamin) Inject 1,000 mcg into a large muscleevery 30 days. 1 mL 11 Syringe Luer Lock 25G X 5/8" 3 ML For vitamin b12 injections 1 Each 11 No current facility-administered medications for this visit. Objective: BP 102/60 | Pulse 102 | Temp 36.2 C (97.1 F) (Temporal Artery) | Resp 20 | Ht 1.6 m (5' 3") | Wt 46.4 kg (102 lb 3.2 oz) | LMP (Within Weeks) | SpO2 100% | BMI 18.10 kg/m | BSA 1.44 m GEN: NAD HEENT: Benign NECK: Supple with no LAD, TM, JVD CHEST: CTA B CV: RRR ABD: Soft, NT/ND, No HSM, NABS EXT: No c,c,e Assessment and Plan: Jaqui-Danlos, hypermobile type (Primary) Need for prophylactic vaccination and inoculation against influenza - INFLUENZA VACC, QUAD, PF, 6 MONTHS & UP, 0.5 ML, IM Generalized intestinal dysmotility Severe protein-calorie malnutrition (HCC) -continue current meds and specialty follow up. 25 min with pt and chart review. Meek Lopez MD documented in this encounter Nursing Notes * Ashley Reid LPN - 05/26/2023 12:54 PM EST The patient has been properly identified by confirmation of name and date of . Chief Complaint Patient presents with Status Check Return in 4 months documented in this encounter Plan of Treatment Upcoming Encounters Date Type Department Care Team (Late st Contact Info) Description 07/11/2023 10:30 AM EST Immunization/Injectio n Hematology/Oncology Treatment, [place] [address] [place] [address] Nurse, Med 4 [address] [facility] [place] [address] 07/22/2023 2:30 PM EST Laboratory Laboratory, [facility] [address] [facility] [place] [id number] [facility] [address] [place] [address] 08/08/2023 10:30 AM EST Immunization/Injectio n Hematology/Oncology Treatment, [place] [address] [place] [address] Nurse, Med [address] [facility] [place] [address] 09/24/2023 12:20 PM EDT Office Visit [facility] [address] [place] [id number] Meek Lopez MD [address] [place] [address] 09/25/2023 1:00 PM EDT Appointment Interventional Radiology [facility], Annette Figueroa [address] [place] [address] 05/26/2024 1:00 PM EST Office Visit Rheumatology [address] [place] [address] Jean Rodríguez MD [address] [place] [address] [place] [address] Health Maintenance Due Date Last Done Comments Hepatitis B (1 of 3 - 3-dose series) 1997 GARDASIL-HPV IMMUNIZATION SERIES (1 - 2-dose series) 2008 Depression Screening 2009 HIV Screening 2012 Hepatitis C Screening 09/24/2015 DTaP,Tdap,and Td Vaccines (1 - Tdap) 2016 Pap Smear 2018 COVID-19 Vaccine ( - season) 2023 06/20/2021, 11/20/2020, 10/21/2020 Influenza Vaccine [...] this encounter Medical Devices Implanted Type Area Control And Recovery Special Tactics Device Identifier Shelf Expiration Date Model / Serial / Lot Tube Feed 16f 45 - [id number] Implanted:Qty : 1 on 10/16/2020 at [facility] Left: [facility] [id number] 08/09/2021 0250-16 / / [id number] documented as of this encounter Visit Diagnoses Diagnosis Jaqui-Danlos, hypermobile type- Primary Need for prophylactic vaccination and inoculation against influenza Generalized intestinal dysmotility Other functional disorders of intestine Severe protein-calorie malnutrition (HCC) Other severe protein-calorie malnutrition documented in this encounter Advance Directives Latest [...] the patient have Health Care Power of Manager Work? No Code Status History Code Status Date Activated Date Inactivated Comments Full Code 08/29/2020 12:26 PM 09/06/2020 7:08 PM Question Answer Comments Discussion of Advance Direct albert occurred with: Not Discussed Does the patient have a Living Will? No Does the patient have Health Care Power of Manager Work? No Care Teams Developmental Training Counselor Relationship Specialty Start Date End Date Meek Lopez MD [address] [place] [address] PCP - General Family Medicine 03/17/20 documented as of this encounter
--- OUTSIDE RECORDS SUMMARY | 2023-07-04 03:45 | External Medical Summary | Summary of Care ---
Author Name Unknown Organization [facility] Address [address] [place] [address] Phone [phone] Care Team Providers Care Ultrasonic Solderer Name Role Phone Meek Lopez MD Primary Care Provider [phone]- [phone] Reason for Visit * Reason Comments Medical Nutrition Therapy Encounter Details Date Type Department Care Team (Late st Contact Info) Description 06/13/2023 3:40 PM EST Telemedicine Nutrition & Weight Management, [place] [address], [place] [phone] Priyanka Pitts MD [address] [place] [address] Severe protein-calorie malnutrition (HCC)*; B12 deficiency; Reactive hypoglycemia; Underweight; On total parenteral nutrition (TPN) Allergies Active Allergy Reactions Criticality Noted Date [...] as of this encounter (statuses as of 06/20/2023) Medications Medication Sig Dispensed Refills Start Date [...] syringe. 1 Each 05/29/2022 Active Dexcom G6 U.S. Commissioner DeviceIndications :Hypoglycemia Use as directed. 1 Each 0 08/02/2022 Active Omeprazole 20 MG Oral Capsule Delayed Release (PriLOSEC) take 1 capsule by mouth IN THE MORNING and take 1 capsule by mouth BEFORE BEDTIME 60 Capsule 3 08/22/2022 Active Cholecalciferol 1.25 MG (53654 UT) Oral CapsuleIndication s:Vitamin D deficiency Take 1 Capsule by mouth once a week. 12 Capsule 1 08/30/2022 Active Granisetron HCl 1 MG Oral Tablet (Kytril) Take 1 Tablet by mouth in the morning and 1 Tablet before bedtime. 0 04/30/2023 4 Active Aprepitant 80 MG Oral Capsule (Emend) [...] b12 injections 1 Each 11 06/13/2023 Active Compleat Oral Liquid 6 cartons daily via J tube, goal rate 70 ml/hr continuous, as tolerated 32900 mL 1 06/20/2023 Active Dexcom G6 SensorIndications :Hypoglycemia Use as directed. 9 Each 3 12/23/2022 3 Discontinue d(Refill) Dexcom G6 Transmitter Use as directed. 0 05/12/2023 3 Discontinue d(Refill) documented as of this encounter (statuses as of 06/20/2023) Active Problems Problem Noted Date Diagnosed Date [...] as of this encounter (statuses as of 06/20/2023) Resolved Problems Problem Noted Date Diagnosed Date Resolved Date H. pylori infection 04/15/2012 07/16/19 21 documented as of this encounter (statuses as of 06/20/2023) Immunizations Name Administration Dates Next Due COVID-19 [...] No 10/16/2020 documented as of this encounter Progress Notes * Priyanka Pitts MD - 06/13/2023 3:40 PM EST MALNUTRITION RETURN Patient location: HOME. I was not in a hospital or clinic location. After connecting through [employer], patient was verified with two unique identifiers. Patient (or authorized legal pharmaceutical service representative) was then informed that this was a Telemedicine visit and being conducted confidentially over secure lines. Methods to assure confidentiality were taken. Patient acknowledged consent and understanding of privacy and security of the Telemedicine visit. The patient agreed to participate. 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 pylori infection 05/04/2012 Lactase deficiency 07/15/2012 who [facility]. HPI: Summary from prior visits: Patient was originally seen in [facility] on 08/28/20 for malnutrition and wt loss 2/2 severe food allergies (as below) and severe pain after eating. Pt had an EGD (01/05/2020) at [facility] that showed signs of gastritis, she was started on a PPI without much relief. H pylori testing at that time was negative, celiac antibodies were normal, a gastric emptying study (05/05/20) was normal. CTA of her abdomen and pelvis in May of 2020 showednormal vessels but there was concern for median arcuate ligament syndrome as a cause of her symptoms at the time. At her first visit with [facility] in Aug 2020 she was noted to be a BMI 14 and with concerns for continued wt loss/FTT she was admitted to [facility] (08/29-09/06/2020)for TPN initiation. During hospitalization, she underwent mesenteric arterial duplex which showed widely patent mesenteric arteries (thereby officially ruling out MALS). She had an NJT was placed endoscopically 09/02/20 and was able to tolerate TF(vivonex) up to 30 mL/hr. During that time she remained on TPN to maintain her nutritional needs and was encouraged to continue to eat by mouth as able. She was discharged 09/06/20 with bridled NJT and nightly feeds of emccoff83 mL/hr (with titration goals) in addition to TPN via PICC and was still recommended PO as able. Due to inability to increase TF to goal rate, formula switched to [employer] Peptide 1.5 which she initially tolerated at goal rate. SHe had a GJ placed on October 16 2020 by IR. She was then able to come off TPN and PICC line removed. In Apr 2021, became less tolerant to TF which led to episodes of dehydration and hypoglycemia. Intolerance worsened and pt no longer able to continue with tube feeds. She was transitioned to TPN. Doing well until Late Jun 2021, developed fever and admitted for fungemia. 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 Takes Lyrica for this. Diagnosed with bile reflux gastritis -- takes PPI and famotidine. TM visit 06/13/2023 Went to [facility] -- saw GI and nutrition and GI psych. Recommended Compleat -- wants us to order Still with hypoglycemia, down to 50's but will bounce back on its own Wearing CGM and can usually can catch sugars before they drop too low Happens also every time she eats, regardless of what she eats. Visit 06/28/22 - completed antibiotics for SIBO but no improvement in her symptoms - Continues on Linzess. Started Donperidon in between appointments, also started on naltrexone for chronic pain. - Saw RD on 06/21/2022 reported low blood sugars especially when coming off TPN, using hard candy tohelp but drops as low as 50-60 with some hypoglycemia unawareness where she won't be symptomatic until < 60 - Spoke with RD on 06/21 and earlier this week and requested to see patient today - She has been intolerant to tube feeds - Recently had low hemoglobin and received transfusion and 3 weeks of IV iron managed by Hematology - Having hypoglycemia within an hour of TPN even with Visit 10/31/2021 - nothing new, feeling better with extra 2 liters - mestinon cause more pain, so stopped after 1 month. Hasn't started linzess yet - never got SIBO results - enrolled in clinical trial with vagal nerve stimulator - drains GJ tube sometimes to relieve nausea - TPN runs 18 hours - reported weight 103 lbs - has f/u with Kayy and JOSEF in December - less "bad" days - flushing and itchy with IV vitamins, so hasn't infused these past few days Visit on 08/29/21 - saw GI at [facility] (Jan Turner MD) --> has colonic inertia, started on trial ofMestinon for POTS and may try Linzess. Recommended to add 1 liter NSS daily to help with hydration and nausea and POTS (I ordered this with GHIS). - new med makes her cramp - concerned for SIBO -- will do home test - vagal nerve stimulator -- in a clinical trial to see if this will help - using GJ to drain, uses most days, helps relieve some nausea - no issues with line WEIGHT HISTORY: The patient's current body weight is Wt Readings from Last 1 Encounters: 05/27/23 46.3 kg (102 lb) , There is no height or weight on file to calculate BMI. Wt Readings from Last 20 Encounters: 05/27/23 46.3 kg (102 lb) 05/26/23 46.4 kg (102 lb 3.2 oz) 01/24/23 46.6 kg (102 lb 11.2 oz) 01/20/23 46.7 kg (103 lb) 12/20/22 47.2 kg (104 lb) 09/09/22 48.5 kg (107 lb) 06/28/22 47.8 kg (105 lb 6.4 oz) 06/07/22 49.4 kg (109 lb) 05/28/22 49 kg (108 lb) 05/21/22 49.4 kg (109 lb) 05/09/22 50.3 kg (111 lb) 03/29/22 50.4 kg (111 lb 3.2 oz) 01/07/22 49.4 kg (109 lb) 11/26/21 49 kg (108 lb) 09/05/21 47.4 kg (104 lb 6.4 oz) 08/29/21 45.4 kg (100 lb) 07/11/21 45.5 kg (100 lb 4.8 oz) 07/04/21 45.2 kg (99 lb 9.6 oz) 06/08/21 43.5 kg (96 lb) 06/04/21 43.6 kg (96 lb 1.6 oz) Current Outpatient Medications Medication Sig Dispense Refill Cyanocobalamin 1000 MCG/ML Injection Solution (Cyanocobalamin) Inject 1,000 mcg into a large muscleevery 30 days. 1 mL 11 Syringe Luer Lock 25G X 5/8" 3 ML For vitamin b12 injections 1 Each 11 Loratadine 10 MG Oral Tablet (Claritin) Take [...] tube via bolus syringe. 1 Each 11 Dexcom G6 U.S. Commissioner Device Use as directed. 1 Each 0 Omeprazole 20 MG Oral Capsule Delayed Release (PriLOSEC) take 1 capsule by mouth IN THE MORNING andtake 1 capsule by mouth BEFORE BEDTIME 60 Capsule 3 Cholecalciferol 1.25 MG (15025 UT) Oral Capsule Take 1 Capsule by [...] 1000 MCG/ML Injection Kit (Cyanocobalamin) 1,000 mcg. No current facility-administered medications for this visit. Current TPN order: As of 05/29/23 Amino acids (gm): 72 Dextrose (gm): 200 Gm on Lipid day 250 Gm on non lipid days Lipids (gm): 53 Days per week (lipids): 1 Volume (ml):2800 Cycle (hr): 14 ( with two hour taper down) Days per week infused: 7 Sodium Chloride (mEq): 15 Sodium Phosphate (mM): - Sodium Acetate (mEq): 40 Potassium Chloride (mEq): 73 Potassium Phosphate (mM): 11 Potassium Acetate (mEq): Calcium Gluconate (mEq): 9 Magnesium Sulfate (mEq): 8 Multiple Trace elements (ml): Multivits (ml): - ( patient will switch to PO) Zinc (mg): 5 Selenium (mcg): 100 Copper (mg): 0.4 Manganese (mg): 0.055 Chromium (mcg): - Human Regular Insulin (Units): - Octreotide (mcg): - Famotidine (mg): - Other: Thiamine 100 mg daily, D5 1/2 NSS 1000 ml daily, Ethanol Kenrick 70% - 2 ml to each lumen daily.(HOLD due to shortage), Folic Acid 2 mg - add daily REVIEW OF SYSTEMS: As stated above in HPI otherwise negative Current Diet: Inadequate PO intake Mostly hard candies EXERCISE HISTORY: Type of Activity: ADLs PHYSICAL EXAMINATION: PHYSICAL EXAMINATION: PN Access: Yes: (R tCVC placed 06/29/21) EN Access: Yes: GJ tube (originally placed in 08/2020, IR exchanged on 03/28/23) There were no vitals filed for this visit. General: NAD, There is no height or weight on file to calculate BMI. HEENT: NCAT, EOMI CV: normal rate, well-perfused Resp: chest rising equally, no increased work of breathing GI: non-distended MSK: no edema, dry/warm skin, Neuro: AAO x3, grossly normal, interactive Psych: normal mood and affect LABS/IMAGING: Reviewed in [facility] ASSESSMENT AND PLAN: MALNUTRITION: Ms. Mccarthy is a 27 year old female with a PMH listed above, who presents to the GI Nutrition department for return. Pt is on TPN due to severe protein calorie malnutrition due to intolerance of tube feeds 2/2 globalGI dysmotility Will try to introduce tube feeds again, with Compleat. Discussed with RDN goals: Compleat Original 6 cartons total = 1500 mL, 1590 Kcals, 72 gm protein, 1242 mL free water Additional 368 mL needed to meet that ~35 mL/kg fluid goal. Cont TPN for now. No adjustments. Cont IVF for POTS. Malnutrition labs due 08/2023 -- will add onto routine TPN labs. Cont b12 inj monthly. Provided rx for home administration Already saw Endocrine regarding reactive hypoglycemia. No new plans. Continue using CGM. RTC 3-4 months Priyanka Pitts MD I spent a total of 40-54 minutes (exact time 40 mins) on the date of service in preparation, delivery, and documentation of the care provided to Priyanka Christy Mccarthy excluding any time spent in the performance of separately billed services. documented in this encounter Plan of Treatment Upcoming Encounters Date Type Department Care Team (Late st Contact Info) Description 07/11/2023 10:30 AM EST Immunization/Injectio n Hematology/Oncology Treatment, [place] [address] [place] [address] Nurse, Med 4 [address] [facility] [place] [address] 07/22/2023 2:30 PM EST Laboratory Laboratory, [facility] [address] [place] [phone] [facility] [address] [place] [address] 08/08/2023 10:30 AM EST Immunization/Injectio n Hematology/Oncology Treatment, [place] [address] [place] [address] Nurse, Med 4 [address] [facility] [place] [address] 09/24/2023 12:20 PM EDT Office Visit [address] [phone] Meek Lopez MD [address] [place] [address] 09/25/2023 1:00 PM EDT Appointment Interventional Radiology [facility], Annette Figueroa 1st [address] [place] [address] 05/26/2024 1:00 PM EST Office Visit Rheumatology [address] [place] [address] Jean Rodríguez MD [facility] [place] [address] Health Maintenance Due Date Last Done Comments Hepatitis B (1 of 3 - 3-dose series) 1997 GARDASIL-HPV IMMUNIZATION SERIES (1 - 2-dose series) 2008 Depression Screening 2009 HIV Screening 2012 Hepatitis C Screening 09/24/2015 DTaP,Tdap,and Td Vaccines (1 - Tdap) 2016 Pap Smear 2018 COVID-19 Vaccine ( season) 2023 06/20/2021, 11/20/2020, 10/21/2020 Influenza Vaccine [...] this encounter Medical Devices Implanted Type Area Microelectronics Assembler Device Identifier Shelf Expiration Date Model / Serial / Lot Tube Feed 16f 45 - [id number] Implanted:Qty : 1 on 10/16/2020 at [facility] Left: Abdomen [facility] [id number] 08/09/2021 0250-16 / [id number] documented as of this encounter Visit Diagnoses Diagnosis Severe protein-calorie malnutrition (HCC)- Primary Other severe protein-calorie malnutrition B12 deficiency Other B-complex deficiencies Reactive hypoglycemia Hypoglycemia, unspecified Underweight On total parenteral nutrition (TPN) Other specified conditions influencing health status documented in this encounter Advance Directives Latest [...] the patient have Health Care Power of Bowling Pin Refinisher? No Code Status History Code Status Date Activated Date Inactivated Comments Full Code 08/29/2020 12:26 PM 09/06/2020 7:08 PM Question Answer Comments Discussion of Advance Direct albert occurred with: Not Discussed Does the patient have a Living Will? No Does the patient have Health Care Power of Bowling Pin Refinisher? No Care Teams Ultrasonic Solderer Relationship Specialty Start Date End Date Meek Lopez MD [address] [place] [address] PCP - General Family Medicine 03/17/20 documented as of this encounter
--- OUTSIDE RECORDS SUMMARY | 2023-07-04 03:45 | External Medical Summary | Summary of Care ---
Author Name Unknown Organization [facility] Address [address] [place] [address] Phone [phone] Care Team Providers Care Chief Librarian Work With Blind Name Role Phone Meek Lopez MD Primary Care Provider +1- [phone] Reason for Visit * Reason Comments Medication Management Encounter Details Date Type Department Care Team (Late st Contact Info) Description 06/26/2023 4:30 PM [facility] Pharmacy [facility] [address] [place] [address] Kiana [place] Pharmacist Tpn [address] [phone] Allergies Active Allergy Reactions Criticality Noted Date [...] 1 Each 11 05/29/2022 Active Dexcom G6 Licensing And Registration Director DeviceIndications :Hypoglycemia Use as directed. 1 Each 0 08/02/2022 Active Omeprazole 20 MG Oral Capsule Delayed Release (PriLOSEC) take 1 capsule by mouth IN THE MORNING and take 1 capsule by mouth BEFORE BEDTIME 60 Capsule 3 08/22/2022 Active Cholecalciferol 1.25 MG (56302 UT) Oral CapsuleIndication s:Vitamin D deficiency Take [...] goal rate 70 ml/hr continuous, as tolerated 79903 mL 1 06/20/2023 Active documented as of [...] as of this encounter Progress Notes * Nikki Pena, [facility] - 06/26/2023 3:04 PM EST [facility] Adult TPN Documentation Patient Phone Numbers Results for orders placed or performed in visit on 02/10/23 BASIC METABOLIC PANEL Result Value Ref Range BUN 16 6 - 20 mg/dL Creatinine 0.7 0.5 - 1.0 mg/dL Estimated Glomerular Filtration Rate >90 >=60 mL/min Sodium 139 135 - 146 mmol/L Potassium 4.3 3.5 - 5.1 mmol/L Chloride 102 98 - 107 mmol/L CO2 23 22 - 32 mmol/L Anion Gap 14 7 - 15 mmol/L Glucose 85 70 - 120 mg/dL Calcium 9.7 8.4 - 10.2 mg/dL Results for orders placed or performed in visit on 08/27/22 COMPREHENSIVE METABOLIC PANEL Result Value Ref Range BUN 17 6 - 20 mg/dL Creatinine 0.7 0.5 - 1.0 mg/dL Estimated Glomerular Filtration Rate >90 >=60 mL/min Sodium 137 135 - 146 mmol/L Potassium 4.3 3.5 - 5.1 mmol/L Chloride 100 98 - 107 mmol/L CO2 25 22 - 32 mmol/L Anion Gap 12 7 - 15 mmol/L Glucose 85 70 - 120 mg/dL Albumin 4.8 3.8 - 5.0 g/dL AST 23 10 - 35 U/L Alkaline Phosphatase 85 35 - 130 U/L Bilirubin, Total 0.3 <=1.2 mg/dL Calcium 9.7 8.4 - 10.2 mg/dL Protein 8.1 6.0 - 8.3 g/dL ALT 17 10 - 35 U/L Lab Results Component Value Date/Time MAGNESIUM - [facility] 2.1 02/10/2023 02:35 PM Lab Results Component Value Date/Time PHOSPHORUS - [facility] 3.5 02/10/2023 02:35 PM PHOSPHORUS-[facility] 4.2 06/25/2023 12:00 AM Lab Results Component Value Date/Time CALCIUM - [facility] 9.7 02/10/2023 02:35 PM CALCIUM - [facility] 10.0 04/02/2012 12:24 PM CALCIUM, IONIZED - [facility] 1.15 05/30/2021 02:08 PM CAL[facility]UM-[facility] 9.9 01/03/2020 01:22 PM Patient weight (kg): 46.6 Amino acids (gm): 72 Dextrose (gm): 200 [...] Folic Acid 2 mg - add daily Most recent labs from 06/25/23 ([facility], carolwarded to GI/Nutrition); Continue the same TPN. Weekly labs and dressing changes at [facility]. Nutrition appointment 06/18/23. Nikki Pena RPh 06/26/2023 3:04 PM documented in this encounter Plan of Treatment Upcoming Encounters Date Type Department Care Team (Late st Contact Info) Description 07/11/2023 10:30 AM EST Immunization/Injectio n Hematology/Oncology Treatment, [place] [address] [facility] [place] [address] Nurse, Med [address] [facility] [place] [address] 07/22/2023 2:30 PM EST Laboratory Laboratory, [address] [place] [address] Melania Schuster Tiffany [address] [facility] [place] [address] 08/08/2023 10:30 AM EST Immunization/Injectio n Hematology/Oncology Treatment, [place] [address] [place] [address] Nurse, Med [address] [place], [place] [address] 09/24/2023 12:20 PM EDT Office Visit [facility] [address] [place] [address] Meek Lopez MD [address] [place] [address] 09/25/2023 1:00 PM EDT Appointment Interventional Radiology [facility] [place], [facility] 1st Floor [address] [place] [address] 05/26/2024 1:00 PM EST Office Visit Rheumatology [facility] [address] [employer] [place], [place] [address] Jean Rodríguez MD [address] [place] [address] Health Maintenance Due Date Last Done Comments [...] this encounter Medical Devices Implanted Type Area It Technical Support Specialist Device Identifier Shelf Expiration Date Model / Serial / Lot Tube Feed 16f 45 - [id number] Implanted:Qty : 1 on 10/16/2020 at [facility] Left: Abdomen [facility] [id number] 08/09/2021249-16 / [id number] documented as of this encounter Advance Directives Latest Code Status on File Code Status Date Activated Date Inactivated Comments Full Code 10/16/2020 6:15 PM 10/17/2020 5:46 PM This or gloria reflects the patients wishes and were consensually agreed upon. Question Answer Comments Discussion of Advance Directives occurred with: Patient/Family Does the patient have a Living Will? No Does the patient have Health Care Power of Pet Resort Concierge? No Code Status History Code Status Date Activated Date Inactivated Comments Full Code 08/29/2020 12:26 PM 09/06/2020 7:08 PM Question Answer Comments Discussion of Advance Direct albert occurred with: Not Discussed Does the patient have a Living Will? No Does the patient have Health Care Power of Pet Resort Concierge? No Care Teams Chief Librarian Work With Blind Relationship Specialty Start Date End Date Meek Lopez MD [address] [place] [address] PCP - General Family Medicine 03/17/20 documented as of this encounter
--- OUTSIDE RECORDS SUMMARY | 2023-07-04 03:45 | External Medical Summary | Continuity of Care Document ---
Author Name Unknown Organization [facility] Address [address] [place] [id number] Care Team Providers Care Sap Fico Architect Name Role Phone Meek Lopez Primary Care Physician [phone] [id number]): [facility]17[facility]23 - 06/17/[address] [phone] Discharge Disposition: Home or Self Care Attending Physician: TANNA [place] Elizabeth A Referring Physician: TANNA [place] Elizabeth A Allergies, Adverse Reactions, Alerts Substance Reaction Severity Status scopolamine Severe Blurry Vision Active Compazine Rash Skin irritation Active Benadryl Skin rash Active Adhesive bandage Blister Rash Itching Active eggs Unknown Active milk products Unknown Active peanuts Unknown Active wheat Unknown Active Latex Blisters Itching Rash Unknown Active Allergy Not found in Search 1 Fruits and Vegetables Active gluten Unknown Active 1Numerous fruits and vegatables Medications famotidine 20 mg oral tablet Start: 04/03/21 10:46:00 EDT, 1 tab, PO, bid Start Date: 04/03/21 Status: Ordered Florinef Acetate 0.1 mg oral tablet Start: 04/10/22 13:07:00 EDT, 1 tab, PO, Daily, Disp# 90 tab, Refills: 3, [facility] Start Date: 04/10/22 Status: Ordered granisetron [...] Active H pylori ulcer Confirmed Active 1Dr Fariba [facility] Procedures Procedure Date Related Diagnosis Body Site Status Upper GI endoscopy 12/28/20 [facility] kenia Echocardiogram Completed Electrocardiogram Complet ed Endoscopy X 2 Completed Knee surg Completed Meniscectomy Completed Procedure, N-J tube Compl eted Surgery Completed [place] teeth extraction C ompleted Wrist Completed Results Radiology Reports * Exam Date Time Procedure Performing Provider Status 06/17/23 9:38 AM VL Art/Vein Abd/Pelvis/Scrotal Complet e María Senra A; Final Notes: (VL Art/Vein Abd/Pelvis/Scrotal Complete) Reason For Exam: chronic abdominal pain VL Art/Vein Abd/Pelvis/Scrotal Complete [facility] FINAL REPORT Name: RICK JENKINS : 1995 Visit: [id number] Date: 17 Jun 2023 TYPE OF TEST: Visceral Arterial Duplex REASON FOR TEST Abdominal pain, post prandial pain, weight loss INTERPRETATION/FINDINGS Duplex examination was performed of the mesenteric vessels. 1. Patent celiac, superior mesenteric, inferior mesenteric, proximal hepatic, and proximal splenic arteries without evidence of significant stenosis. 2. Normal flow in the superior mesenteric and splenic veins. 3. No evidence of stenosis or aneurysmal disease in the abdominal aorta. No prior exam for comparison. IMPRESSION/COMMENTS I have personally reviewed the data relevant to the interpretation of this study. TECHNOLOGIST: TIM Fernandez, RVT PHYSICIAN: Carroll Calloway MD Signed: 06/17/2023 12:02 PM Final Dictated by:MD Calloway Aditya Dictated DT/TM:06/17/2023 12:02 Signed by:MD Calloway Aditya Signed (Electronic Signature):06/17/2023 12:02 Transcribed by: Social History Social History Type Response Smoking Status Never smoked cigaret phuong Sex Female Patient Care team information Care Team Personnel Name: MD Jessica, Meek Quiroz Position: Referring DIRECT Member Role: Primary Care Provider Address: Address: [address] [place] [address] Care Team Related Persons Name: DIOGO JENKINS Address: [address] [phone] Name: ROLANDO JENKINS Address: [address] [phone] Name: ROLANDO JENKINS Address: [address] [phone]
--- OUTSIDE RECORDS SUMMARY | 2023-07-04 03:45 | External Medical Summary | Summary of Care ---
Author Name Unknown Organization [facility] Address [address] [place] [address] Phone [phone] Care Team Providers Care Staff Editor Name Role Phone Meek Lopez MD Primary Care Provider [phone]- [phone] Reason for Visit * Reason Comments Medication Administration B12 Encounter Details Date Type Department Care Team (Late st Contact Info) Description 06/13/2023 10:30 AM EST Immunization/I njection Hematology/Oncology Treatment, [place] [address] [place] [address] Nurse, Med [address] [place], [place] [phone] Other vitamin B12 deficiency anemias* Allergies Active Allergy Reactions Criticality Noted Date [...] as of this encounter (statuses as of 06/13/2023) Medications Medication Sig Dispensed Refills Start Date [...] 1 Each 11 05/29/2022 Active Dexcom G6 Cut In Worker DeviceIndications: Hypoglycemia Use as directed. 1 Each 0 08/02/2022 Active Omeprazole 20 MG Oral Capsule Delayed Release (PriLOSEC) take 1 capsule by mouth IN THE MORNING and take 1 capsule by mouth BEFORE BEDTIME 60 Capsule 3 08/22/2022 Active Cholecalciferol 1.25 MG (13214 UT) Oral CapsuleIndications :Vitamin D deficiency Take 1 Capsule by mouth once a week. 12 Capsule 1 08/30/2022 Active Dexcom G6 SensorIndications: Hypoglycemia Use as directed. 9 Each 3 12/23/2022 Active Granisetron HCl 1 MG Oral Tablet (Kytril) Take 1 Tablet by mouth in the morning and 1 Tablet before bedtime. 0 04/30/2023 07/29/2023 Active Aprepitant 80 MG Oral Capsule (Emend) Take 1 Capsule by mouth in the morning. 0 04/30/2023 Active Dexcom G6 Transmitter Use as directed. 0 05/12/2023 Active Physicians EZ Use B-12 1000 MCG/ML Injection Kit (Cyanocobalamin) 1,000 mcg. 0 Active documented as of this encounter (statuses as of 06/13/2023) Active Problems Problem Noted Date Diagnosed Date Other vitamin B12 deficiency anemias 05/24/2022 Other [...] as of this encounter (statuses as of 06/13/2023) Resolved Problems Problem Noted Date Diagnosed Date Resolved Date H. pylori infection 04/15/2012 07/16/19 21 documented as of this encounter (statuses as of 06/13/2023) Immunizations Name Administration Dates Next Due COVID-19 [...] No 10/16/2020 documented as of this encounter Nursing Notes * Karen Petit LPN - 06/13/2023 10:48 AM EST Pt arrived for vitamin b12 injection. Administered in L deltoid. Pt tolerated well. To return in 4 weeks. Discharged in stable condition. documented in this encounter Plan of Treatment Upcoming Encounters Date Type Department Care Team (Late st Contact Info) Description 06/13/2023 3:40 PM EST Telemedicine Nutrition & Weight Management, [place] [address] [place] [address] Priyanka Pitts MD [address] [place] [address] 07/11/2023 10:30 AM EST Immunization/Injection Hematology/Oncology Treatment, [facility] [address] [place] [address] Nurse, Med 4 [address] [facility] [address] 07/22/2023 2:30 PM EST Laboratory Laboratory, [facility] [address] [place] [phone] [facility] [address] [place] [address] 07/29/2023 2:30 PM EST Office Visit Hematology/Oncology [facility] [address] [place] [address] Lupe Arboleda CRNP [address] [place] [address] 08/08/2023 10:30 AM EST Immunization/Injection Hematology/Oncology Treatment, [facility] [address] [place] [address] Nurse, Med 4 [address] [facility] [address] 09/24/2023 12:20 PM EDT Office Visit [facility] [address] [place] [phone] Meek Lopez MD [address] [place] [address] 09/25/2023 1:00 PM EDT Appointment Interventional Radiology [facility] 1st Floor [address] [facility] [phone] 05/26/2024 1:00 PM EST Office Visit Rheumatology Seth Silva [address] [place] [address] Jean Rodríguez MD [facility] [place] [address] Health Maintenance Due Date Last Done Comments [...] this encounter Medical Devices Implanted Type Area Foot Doctor Device Identifier Shelf Expiration Date Model / Serial / Lot Tube Feed 16f 45 - [id number] Implanted:Qty : 1 on 10/16/2020 at [facility] Left: Abdomen [facility] [id number] 08/09/2021 025-16 / [id number] documented as of this encounter Visit Diagnoses Diagnosis Other vitamin B12 deficiency anemias- Primary documented in this encounter Administered Medications Inactive Administered Medications - up to 3 most recent administrations Medication Order MAR Action Action Date Dose Rate Site vitamin b-12 (Cyanocobalamin) inj 1,000 mcg 1,000 mcg, Intramuscular, ONCE, On Fri06/13/23 at 1130, For 1 dose Given 06/13/2023 10:40 AM EST 1,000 mcg Deltoid Left Upper documented in this encounter Advance Directives Latest [...] the patient have Health Care Power of Motorcycle Repair Shop Supervisor? No Code Status History Code Status Date Activated Date Inactivated Comments Full Code 08/29/2020 12:26 PM 09/06/2020 7:08 PM Question Answer Comments Discussion of Advance Direct albert occurred with: Not Discussed Does the patient have a Living Will? No Does the patient have Health Care Power of Motorcycle Repair Shop Supervisor? No Care Teams Staff Editor Relationship Specialty Start Date End Date Meek Lopez MD [address] [place] [address] PCP - General Family Medicine 03/17/20 documented as of this encounter
[2023-07-04 03:46] LABS: A calco-baum cmplx NotReported Not Detected (NotDetected); Bact fragilis Not Reported Not Detected (NotDetected); Blood Culture Id Panel See PCR Comment (NotDetected); C auris Not Reported Not Detected (NotDetected); Calbicans Not Reported Not Detected (NotDetected); Candida glabrata Not Reported Not Detected (NotDetected); Candida krusei Not Reported Not Detected (NotDetected); Cneoformans/gatti Not Reported Not Detected (NotDetected); Cparapsilosis Not Reported Not Detected (NotDetected); E cloacae compx Not Reported Not Detected (NotDetected); Efaecalis Not Reported DETECTED (NotDetected); Efaecium Not Reported Not Detected (NotDetected); Enterobacterales Not Reported Not Detected (NotDetected); Escherichia coli Not Reported Not Detected (NotDetected); H influenzae Not Reported Not Detected (NotDetected); K aerogenes Not Reported Not Detected (NotDetected); Koxytoca Not Reported Not Detected (NotDetected); Kpneumoniae grp Not Reported Not Detected (NotDetected); Lmonocyt Not Reported Not Detected (NotDetected); N meningitidis Not Reported Not Detected (NotDetected); P aeruginosa Not Reported Not Detected (NotDetected); Proteus spp Not Reported Not Detected (NotDetected); Salmonella spp Not Reported Not Detected (NotDetected); Smarcescens Not Reported Not Detected (NotDetected); Staph lugdunensis Not Reported Not Detected (NotDetected); Staph spp. Not Reported Not Detected (NotDetected); Staphaureus Not Reported Not Detected (NotDetected); Staphepi Not Reported Not Detected (NotDetected); Stenmaltophilia Not Reported Not Detected (NotDetected); Strep agal(GrpB) Not Reported Not Detected (NotDetected); Strep pneum Not Reported Not Detected (NotDetected); Strep pyog (GrpA) Not Reported Not Detected (NotDetected); Strep spp Not Reported Not Detected (NotDetected); VanAB Resistant Gene VRE Not Detected (NotDetected)
--- OUTSIDE RECORDS SUMMARY | 2023-07-04 03:46 | External Medical Summary | Summary of Care ---
Author Name Unknown Organization [facility] Address [address] [place] [address] Phone [phone] Care Team Providers Care Thermal Cutting Tracer Machine Operator Name Role Phone Meek Lopez MD Primary Care Provider [phone]- [phone] Reason for Visit * Reason Comments Medication Administration Vitamin B12 Encounter Details Date Type Department Care Team (Late st Contact Info) Description 05/09/2023 1:30 PM EDT Immunization/I njection Hematology/Oncology Treatment, [place] [address] [place] [address] Nurse, Med [address] [place], [place] [phone] Other vitamin B12 deficiency anemias* Allergies Active Allergy Reactions Criticality Noted Date Comments Diphenhydramine Other (Please comment) 09/24/2022 "Throat itching" "super jittery" Food (See Comments) Itching 07/15/2012 Strawberries,banan as,watermelon,cant eloupe, tomatoes, wheat, sesame seeds, egg white, milk, gluten, walnuts, hazlenuts. Most fruits and vegetables in the raw form. Gluten Meal Unknown 06/24/2021 Justicia Adhatoda 06/24/2021 Other reaction(s): Unknown Lactose Intolerance (Gi) 07/15/2012 Latex Edema Other,Itching [...] as of this encounter (statuses as of 05/09/2023) Medications Medication Sig Dispensed Refills Start Date [...] every morning before breakfast 0 12/26/2021 Active Naltrexone 3 MG OR Capsule Take 2mg daily for 1 week, 3mg daily for 1 week then 4.5mg daily 30 Capsule 2 05/28/2022 Active Additional Information Patient not taking.Reported on 12/20/2022 Enteral Nutrition Supplies Supplies needed for maintenance of feeding tube via bolus syringe. 1 Each 11 05/29/2022 Active Dexcom G6 Production Sanitizer DeviceIndications:Hy poglycemia Use as directed. 1 Each 0 08/02/2022 Active Omeprazole 20 MG Oral Capsule Delayed Release (PriLOSEC) take 1 capsule by mouth IN THE MORNING and take 1 capsule by mouth BEFORE BEDTIME 60 Capsule 3 08/22/2022 Active Cholecalciferol 1.25 MG (84700 UT) Oral CapsuleIndications:V itamin D deficiency Take 1 Capsule by mouth once a week. 12 Capsule 1 08/30/2022 Active Ondansetron 4 MG Oral Tablet Disintegrating (Zofran) Place 2 Tablets on tongue every 8 hours as needed for Nausea. dissolve on tongue. 180 Tablet 1 10/28/2022 Active Dexcom G6 SensorIndications:Hy poglycemia Use as directed. 9 Each 3 12/23/2022 Active documented as of this encounter (statuses as of 05/09/2023) Active Problems Problem Noted Date Diagnosed Date [...] as of this encounter (statuses as of 05/09/2023) Resolved Problems Problem Noted Date Diagnosed Date Resolved Date H. pylori infection 04/15/2012 07/16/19 21 documented as of this encounter (statuses as of 05/09/2023) Immunizations Name Administration Dates Next Due COVID-19 mRNA, LNP-s, No Pre serve, 2-Dose Series (Moderna) 06/20/2021,11/20/2020,10/21/2020 Seasonal Influenza, Quadriva lent, No Preserve, Mdck [...] or making decisions? (5 years old or older No 10/16/2020 documented as of this encounter Progress Notes * Enedelia Solo LPN - 05/09/2023 1:55 PM EDT Administered Vitamin B12 1000mcg IM in left deltoid, patient tolerated well, patient left in stablecondition. documented in this encounter Plan of Treatment Upcoming Encounters Date Type Department Care Team (Late st Contact Info) Description 05/26/2023 1:00 PM EST Office Visit [facility] [address] [place] [phone] Meek Lopez MD [address] [place] [address] 05/27/2023 1:20 PM EST Office Visit Rheumatology [address] [place] [address] Jean Rodríguez MD [address] [facility] [place] [address] 06/06/2023 1:30 PM EST Immunization/Injection Hematology/Oncology Treatment, [place] [address] [facility] [place] [address] Nurse, Med [address] [facility] [place] [address] 06/13/2023 3:40 PM EST Telemedicine Nutrition & Weight Management, [place] [address] [place] [address] Priyanka Pitts MD [address] [place], [place] [phone] 07/22/2023 2:30 PM EST Laboratory Laboratory, [facility] [address] [place] [phone] [facility] [address] [place] [address] 07/29/2023 2:30 PM EST Office Visit Hematology/Oncology [facility] [address] [facility] [place] [address] Lupe Arboleda CRNP [address] [place], [place] [phone] 09/25/2023 1:00 PM EDT Appointment Interventional Radiology [facility], [facility] 1st Floor [address] [place] [address] Health Maintenance Due Date Last Done Comments Hepatitis B (1 of 3 - 3-dose series) 1997 GARDASIL-HPV IMMUNIZATION SERIES (1 - 2-dose series) 2008 Depression Screening 2009 HIV Screening 2012 Hepatitis C Screening 09/24/2015 DTaP,Tdap,and Td Vaccines (1 - Tdap) 2016 Pap Smear 2018 COVID-19 Vaccine ( season) 2023 06/20/2021, 11/20/2020, 10/21/2020 Influenza Vaccine (FLU shot) (#1) 2023 06/13/2022, 06/13/2022, 05/23/2020, Additional history exists MENINGOCOCCAL (MENACTRA/MENVEO) Aged Out No longer eligible based on patient's age to complete this topic Pneumococcal Vaccine: Pediatrics (0 to 5 Years) and At-Risk Patients (6 to 64 Years) Aged Out No longer eligible based on patient's age to complete this topic documented as of this encounter Medical Devices Implanted Type Area Assistant Plant Manager Device Identifier Shelf Expiration Date Model / Serial / Lot Tube Feed 16f 45 - [id number] Implanted:Qty : 1 on 10/16/2020 at [facility] Left: Abdomen [facility] [id number] 08/09/2021 0250-16 [id number] documented as of this encounter Visit Diagnoses Diagnosis Other vitamin B12 deficiency anemias- Primary documented in this encounter Administered Medications Inactive Administered Medications - up to 3 most recent administrations Medication Order MAR Action Action Date Dose Rate Site vitamin b-12 (Cyanocobalamin) inj 1,000 mcg 1,000 mcg, Intramuscular, ONCE, On Fri05/09/23 at 1445, For 1 dose Given 05/09/2023 1:51 PM EDT 1,000 mcg Deltoid Left Lower documented in this encounter Advance Directives Latest [...] the patient have Health Care Power of Floor Cashier? No Code Status History Code Status Date Activated Date Inactivated Comments Full Code 08/29/2020 12:26 PM 09/06/2020 7:08 PM Question Answer Comments Discussion of Advance Direct albert occurred with: Not Discussed Does the patient have a Living Will? No Does the patient have Health Care Power of Floor Cashier? No Care Teams Thermal Cutting Tracer Machine Operator Relationship Specialty Start Date End Date Meek Lopez MD [address] [facility] [place] [address] PCP - General Family Medicine 03/17/20 documented as of this encounter
--- OUTSIDE RECORDS SUMMARY | 2023-07-04 03:46 | External Medical Summary | Continuity of Care Document ---
Author Name Unknown Organization [facility] [address] [place] [address] ABHILASH DURAN [phone] Care Team Providers Care Sports Therapist Name Role Phone Meek Lopez Primary Care Physician [phone] [facility] [id number] Date(s): 05/16/23 - 05/16/23 [facility] MARIA DOLORES [address] [facility] [address], Entr[address], [address] ABH[place]ASH Sultana17033 [phone] Encounter Diagnosis Chronic abdominal pain(Discharge Diagnosis) - 05/16/23 Slow transit constipation(Discharge Diagnosis) - 05/16/23 Lactose intolerance(Discharge Diagnosis) - 05/16/23 On total parenteral nutrition (TPN)(Discharge Diagnosis) - 05/16/23 EDS (Jaqui-Danlos syndrome)(Discharge Diagnosis) - 05/16/23 Discharge Disposition: Home or Self Care Attending Physician: TANNA Colorado Elizabeth A Referring Physician: MD Lopez Brett R Allergies, Adverse Reactions, Alerts Substance Reaction Severity [...] gluten Unknown Active 1Numerous fruits and vegatables Assessment and Plan Extracted from: Title:GI TeleHealth Visit Note Author:TANNA [place] Elizabeth A Date:05/16/23 1.Chronic abdominal pain We have no specific studies giving an etiology forherpostprandial pain. She has had questionable delayed gastric emptying, but didn't see any improvement ondomperidone. She has tested positive for SIBO and was treated for this without any symptom improvement. She does have moderately reduced lactase levels on duodenal biopsies and normal sucrase levels. She reports being lactose free since the age of 14. 2.Slow transit constipation She is presently on Linzess as needed and will bepotentially starting Ibsrella through her GI at [facility], which is approved for IBS-C. 3.Lactose intolerance She has known lactose intolerance and remains lactose-freealthough does state that if she wants to move her bowels if she eats ice cream this will make her bowels move. She does not feel anyfurther recommendations from nutrition would be helpful 4.On total parenteral nutrition (TPN) She remains on TPNwhichis providing most of her nutritional needs.Due to the potentialsignificant risks associatedwith TPN, especially having normal gastric and small bowel function, the goalis to wean from this toenteral feedings, whether this is by mouth and/orvia GJ feedings. She is following up with [facility] at this time regarding tube feeding formula recommendations. 5.EDS (Jaqui-Danlos syndrome) I placed orders for a small bowel follow-through studyand a mesenteric duplex study to be performed at [facility] within the next month. Due to the distance she travels we will try to get these done on the same dayand we will also make sure that [facility] receives copies ofthese, including the discs. Will schedule GI follow-up with myself or Dr. Bazan approximately 6 months. Medications famotidine 20 mg oral tablet Start: 04/03/21 10:46:00 EDT, 1 tab, PO, bid Start Date: 04/03/21 Status: Ordered Florinef Acetate 0.1 mg oral tablet Start: 04/10/22 13:07:00 EDT, 1 tab, PO, Daily, Disp# 90 tab, Refills: 3, Pharmacy: [facility] Start Date: 04/10/22 Status: Ordered granisetron [...] Active H pylori ulcer Confirmed Active 1Dr [facility] Diagnosis Diagnosis Type Effective Dates Health Status Clinical Service Informant Chronic abdominal pain Discharge Diagnosis 05/16/23 On total parenteral nutrition (TPN) Discharge Diagnosis 05/16/23 Slow transit constipation Discharge Diagnosis 05/16/23 Lactose intolerance Discharge Diagnosis 05/16/23 EDS (Jaqui-Danlos syndrome) Discharge Diagnosis 05/16/23 Procedures Procedure Date Related Diagnosis Body Site Status Upper GI endoscopy 12/28/20 Comple kenia Echocardiogram Completed Electrocardiogram Complet ed Endoscopy X 2 Completed Knee surg Completed Meniscectomy Completed Procedure, N-J tube Compl eted Surgery Completed [place] teeth extraction C ompleted Wrist Completed Social History Social History Type Response Smoking Status Never smoked cigaret phuong Sex Female Gastroenterology Outpatient Note * TANNA Colorado, Milana Hennessy: PERFORM, MODIFY, MODIFY, MODIFY, MODIFY, MODIFY Event Display: Gastroenterology Outpt Note Authored Date: [id number] TeleHealth Visit Note I have confirmed the patients name and date of . The patient has consented to this service,and I have advised the patient that this is a billable visit for which they may be subject to a copay. [ _ ] The patient has initiated this visit after he/she was informed of the availability of telehealth for this medically necessary visit. [ _ ] The provider initiated this visit after explaining the need for this visit to the patient, who has consented to this virtual visit. I am located at my: [ _ ] Office [x ] Home [ _ ] Other: _ The patient is located at: [x ] Home [ _ ] Other: _ This visit was conducted via live audio/video technology: [x ] [facility], 05/16/23 Total time spent communicating with the patient:29 minutes Chief Complaint Follow-upabdominal pain,slow transit constipation History of Present Illness A 27-year-old femalewho has ahistory ofmildly delayed gastric emptying, slow transit constipation andchronic postprandial painremains on TPN to meet her nutritional needs. She has been onTPN for about 2 years which is being managed through her PCP. She also has a GJ but has not been able to tolerate any formuladue to pain. She has been given trials of lactose free formula including Vivonex and [employer], butnever tolerated them very well. Shehas a history of lactose intolerance that she is aware of since the age of 14 and also had H. pylori diagnosed and treatedat around that age. She was able toeat and do okay for many years up until about 2 years agoand there has beenno clear explanation as to why. She is reports that [facility]. She states that heis requesting to have a small bowel follow-through and mesentericduplex study and she would like to get thesescheduled at [place]. She does not have a local GI. A past solid food emptying study in April 2020 reported 90% emptying at 4 hours. At the time she had been on Reglan for a short periodbut then she felt it stopped working. It had been helpfulfor her nausea. [facility]. [facility] included a whole gut motility study in July 2021. The liquid only gastric emptying was positive for delayed emptyingwith no notable liquid emptying. A combined liquid solid study was borderline positive for delayed gastric emptying. Her solid food emptying was normal, reporting 98% emptying at 4 hours. Her small bowel study was negative for delayed small bowel transitand the large bowel did show delayed transit. She had a positivebreath test for SIBO at [facility]. She was treated with doxycycline andhad nodifference in her symptoms after being treated. Her GI studies at [facility] include the followin. small bowel enteroscopy October 2022which was normal. There were no mast cells shown on biopsy and her duodenal biopsies were normal. Her stomach biopsy reported mild chronic inflammation.Biopsies ofher duodenum fordisaccharidases showedmoderately reduced lactase and normal sucrase levels. 2. EGD Decembereporting normal biopsies of the stomach negative for H. pylori 3. Anal rectal manometry study Decemberhowing an intact RAIR and findings of type IV dyssynergia. She was unable toexpel the balloon. Sheenrolled in our IRB/IND protocol for domperidoneabout a year agoand stopped this several months ago. We tried to titrate the medication in an effort to see if her symptoms would improve and she saw no differenceon domperidone, so she stopped this. She is on Linzess that she uses as needed. She states that sometimes it does nothing and at other times causes crampy pain and diarrhea. This worsened on the 145 mcg dose so she is on 72 mcgdaily. She did not tolerate Mestinon in the past, as this caused stomach cramps. Motegrityis not covered by her insurance.She has not been given a trial of Amitiza or Trulance. She reports that [facility] is in the process of trying to get Ibsrella approved. She also reports that she will be following up withpsychology and nutrition at the [facility] and nutrition is going to try to find a formula that she might be ableto tolerate. Physical Exam Patient does not appear in distress. Heraffect is slightly blunted. Eye contact is fair. She answers questions appropriately and converses appropriately. Assessment/Plan 1.Chronic abdominal pain We have no specific studies giving an etiology forherpostprandial pain. She has had questionable delayed gastric emptying, but didn't see any improvement ondomperidone. She has tested positive for SIBO and was treated for this without any symptom improvement. She does have moderately reduced lactase levels on duodenal biopsies and normal sucrase levels. She reports being lactose free since the age of 14. 2.Slow transit constipation She is presently on Linzess as needed and will bepotentially starting Ibsrella through her GI at [facility], which is approved for IBS-C. 3.Lactose intolerance She has known lactose intolerance and remains lactose-freealthough does state that if she wants to move her bowels if she eats ice cream this will make her bowels move. She does not feel anyfurther recommendations from nutrition would be helpful 4.On total parenteral nutrition (TPN) She remains on TPNwhichis providing most of her nutritional needs.Due to the potentialsignificant risks associatedwith TPN, especially having normal gastric and small bowel function, the goalis to wean from this toenteral feedings, whether this is by mouth and/orvia GJ feedings. She is following up with [facility] at this time regarding tube feeding formula recommendations. 5.EDS (Jaqui-Danlos syndrome) I placed orders for a small bowel follow-through studyand a mesenteric duplex study to be performed at [facility] within the next month. Due to the distance she travels we will try toget these done on the same dayand we will also make sure that [facility] receives copies ofthese, including the discs. Will schedule GI follow-up with myself or Dr. Bazan approximately 6 months. Problem List/Past Medical History Ongoing Abdominal pain Colonic inertia Diarrhea Dizziness Jaqui-Danlos syndrome type III H pylori ulcer Indigestion Loss of weight Nausea Procedure/Surgical History Upper GI endoscopy (12/28/2020)ElectrocardiogramEchocardiogramSurgeryMeniscectomyW ristWisdom teeth extractionKnee surgProcedure, N-J tubeEndoscopy X 2 Medications famotidine(famotidine 20 mg oral tablet), 20 mg= 1 tab, PO, bid fludrocortisone(Florinef Acetate 0.1 mg oral tablet), 0.1 mg= 1 tab, PO, Daily, 3 refills granisetron(granisetron 1 mg oral tablet) linaclotide(Linzess), 72 mcg, Daily loratadine(loratadine 10 mg oral tablet), 10 mg= 1 tab, PO, Daily montelukast(montelukast 10 mg oral tablet), 10 mg= 1 tab, PO, qPM omeprazole(omeprazole 20 mg oral delayed release capsule), 20 mg= 1 cap, PO, bid unlisted medication(TPN) unlisted medication(Saline liter), IV, Daily Allergies Adhesive bandageBlister, Rash, Itching Allergy Not found in SearchFruits and Vegetables BenadrylSkin rash CompazineRash, Skin irritation LatexBlisters, Itching, Rash, Unknown eggsUnknown glutenUnknown milk productsUnknown peanutsUnknown scopolamineSevere Blurry Vision wheatUnknown Social History Smoking Status Never smoked cigarettes Recommendations Health Maintenance Pending(in the next year) OverDue Adult Influenza Vaccine due01/11/23and every 1year Body Mass Index due03/14/23and every 1year Due Adult COVID-19 Vaccination due05/16/23Unknown Frequency Adult Folic Acid Supplementation due05/16/23and every 3year Adult Tdap/Td Vaccine due05/16/23Unknown Frequency Cervical Cancer Screening due05/16/23Unknown Frequency Hepatitis C Screening due05/16/23One-time only Satisfied(in the past 1 year) There are no satisfied recommendations within the defined date range Electronic Signature on File CC: Karen Randall MD [address] [place] [id number] CC: Meek Lopez MD [address] [place] [address] * Electronically Reviewed/Signed by: BETH BucknerC Author Signature Dt/Tm:05/16/2023 03:34 PM Division of Gastroenterology EAT Patient Care team information Care Team Personnel Name: MD Jessica, Meek Quiroz Position: Referring DIRECT Member Role: Primary Care Provider Address: Address: [address] [place] [address] [place] Care Team Related Persons Name: DIOGO JENKINS Address: home [address] [place] [phone] Name: ROLANDO JENKINS Address: home [address] [place] [address] [phone] Name: ROLANDO JENKINS Address: home [address] [place] [address] [phone]
--- OUTSIDE RECORDS SUMMARY | 2023-07-04 03:46 | External Medical Summary | Summary of Care ---
Author Name Unknown Organization [facility] Address [address] [place] [address] Phone [phone] Care Team Providers Care Vice President Of Operations Name Role Phone Meek Lopez MD Primary Care Provider [phone] Encounter Details Date Type Department Care Team (Late st Contact Info) Description 05/22/2023 Orders Only Nutrition & Weight Management, [place] [address] [place] [address] Priyanka Pitts MD [address] [place] [address] Allergies Active Allergy Reactions Criticality Noted Date [...] as of this encounter (statuses as of 05/22/2023) Medications Medication Sig Dispensed Refills Start Date [...] 1 Each 11 05/29/2022 Active Dexcom G6 Yard Stocker DeviceIndications:Hy poglycemia Use as directed. 1 Each 0 08/02/2022 Active Omeprazole 20 MG Oral Capsule Delayed Release (PriLOSEC) take 1 capsule by mouth IN THE MORNING and take 1 capsule by mouth BEFORE BEDTIME 60 Capsule 3 08/22/2022 Active Cholecalciferol 1.25 MG (05633 UT) Oral CapsuleIndications:V itamin D deficiency Take [...] as of this encounter (statuses as of 05/22/2023) Active Problems Problem Noted Date Diagnosed Date [...] as of this encounter (statuses as of 05/22/2023) Resolved Problems Problem Noted Date Diagnosed Date Resolved Date H. pylori infection 04/15/2012 07/16/19 21 documented as of this encounter (statuses as of 05/22/2023) Immunizations Name Administration Dates Next Due COVID-19 [...] Description 05/26/2023 1:00 PM EST Office Visit [facility] [address] [place] [address] Meek Lopez MD [address] [place] [address] 05/27/2023 1:20 PM EST Office Visit Rheumatology [facility] [address] [facility] [place] [address] Jean Rodríguez MD [address] [facility] [place] [address] 06/06/2023 1:30 PM EST Immunization/Injection Hematology/Oncology Treatment, [place] [address] [place] [address] Nurse, Med 4 200 [facility] [place] [address] 06/13/2023 3:40 PM EST Telemedicine Nutrition & Weight Management, [place] [address] [place] [address] Priyanka Pitts MD [address] [place] [address] 07/22/2023 2:30 PM EST Laboratory Laboratory, [facility] [address] [place] [phone] [facility] [address] [place] [address] 07/29/2023 2:30 PM EST Office Visit Hematology/Oncology [facility] [address] [facility] [place] [address] Lupe Arboleda CRNP [address] [place] [address] 09/25/2023 1:00 PM EDT Appointment Interventional Radiology [facility], [facility] 1st Floor [address] [place] [address] Health Maintenance Due Date Last [...] this encounter Medical Devices Implanted Type Area Signals Collection Technician Device Identifier Shelf Expiration Date Model / Serial / Lot Tube Feed 16f 45 - [id number] Implanted:Qty : 1 on 10/16/2020 at [facility] Left: Abdomen [facility] [id number] 08/09/2021 [id number] documented as of this encounter Procedures Procedure Name Priority Date/Time Associated Diagnosis Comments CHEMISTRY-OUTSIDE Routine 05/21/2023 documented in this encounter Results * CHEMISTRY-OUTSIDE (05/21/2023) Not all results display below - see scan for full detail OUTSIDE LAB (SEE SCANNED REPORT) Comment:"SCAN INCLUDES"- CMP , PHOS, MG, TRIG, CBC, PLT CREATININE-OUTSID E LAB 0.70 0.6 - 1.2 MG/DL OUTSIDE LAB (SEE SCANNED REPORT) EGFR-OUTSIDE LAB 120.4 NO RANGE ML/MIN/1.7 3M2 OUTSIDE LAB (SEE SCANNED REPORT) POTASSIUM-OUTSIDE LAB 3.8 3.5 - 5.1 MMOL/L OUTSIDE LAB (SEE SCANNED REPORT) GLUCOSE-OUTSIDE LAB 93 70 - 99 MG/DL OUTSIDE LAB (SEE SCANNED REPORT) HOURS FASTING OUTSID E LAB (SEE SCANNED REPORT) TRIGLYCERIDES-OUT SIDE LAB 88 0 - 150 MG/DL OUTSIDE LAB (SEE SCANNED REPORT) CHOLESTEROL-OUTSI DE LAB OUTSIDE LAB (SEE SCANNED REPORT) HDL-OUTSIDE LAB OUTS DANIEL LAB (SEE SCANNED REPORT) CHOL/HDL RATIO-OUTSIDE LAB OUTSIDE LA B (SEE SCANNED REPORT) LDL (CALCULATED)-OUTS DANIEL LAB OUTSIDE LAB (SEE SCANNED REPORT) LDL (DIRECT MEASURE)-OUTSIDE LAB OUTSIDE LAB (SEE SCANNED REPORT) HEMOGLOBIN, [id number]-[id number] LAB OUTSIDE LAB (SEE SCANNED REPORT) PHOSPHORUS-OUTSID E LAB 3.7 2.5 - 4.9 MG/DL OUTSIDE LAB (SEE SCANNED REPORT) PTH-OUTSIDE LAB OUTS DANIEL LAB (SEE SCANNED REPORT) MICROALBUMIN RATIO-OUTSIDE LAB OUTSIDE LA B (SEE SCANNED REPORT) PROTEIN, UA-OUTSIDE LAB OUTSIDE LAB (SEE SCANNED REPORT) HEMOGLOBIN-OUTSID E LAB 13.1 12.0 - 16.0 G/DL OUTSIDE LAB (SEE SCANNED REPORT) 05/21/2023 Priyanka Pitts MD LABORATORY OUTSIDE LAB (SEE SCANNED REPORT) documented [...] the patient have Health Care Power of As400 Consultant? No Code Status History Code Status Date Activated Date Inactivated Comments Full Code 08/29/2020 12:26 PM 09/06/2020 7:08 PM Question Answer Comments Discussion of Advance Direct albert occurred with: Not Discussed Does the patient have a Living Will? No Does the patient have Health Care Power of As400 Consultant? No Care Teams Vice President Of Operations Relationship Specialty Start Date End Date Meek Lopez MD [address] [place] [address] PCP - General Family Medicine 03/17/20 documented as of this encounter
--- OUTSIDE RECORDS SUMMARY | 2023-07-04 03:46 | External Medical Summary | Summary of Care ---
Author Name Unknown Organization [facility] Address [address] [place] [address] Phone [phone] Care Team Providers Care Field Service Poultry Technician Name Role Phone Meek Lopez MD Primary Care Provider [phone]- [phone] Reason for Visit * Reason Comments Medication Management Encounter Details Date Type Department Care Team (Late st Contact Info) Description 05/15/2023 4:45 PM EDT Pharmacy [facility] [address] [place] [address] Kiana [place] Pharmacist Tpn [address] [phone] Allergies Active Allergy Reactions Criticality Noted Date [...] as of this encounter (statuses as of 05/15/2023) Medications Medication Sig Dispensed Refills Start Date [...] 1 Each 11 05/29/2022 Active Dexcom G6 Meterman DeviceIndications:Hy poglycemia Use as directed. 1 Each 0 08/02/2022 Active Omeprazole 20 MG Oral Capsule Delayed Release (PriLOSEC) take 1 capsule by mouth IN THE MORNING and take 1 capsule by mouth BEFORE BEDTIME 60 Capsule 3 08/22/2022 Active Cholecalciferol 1.25 MG (38864 UT) Oral CapsuleIndications:V itamin D deficiency Take [...] as of this encounter (statuses as of 05/15/2023) Active Problems Problem Noted Date Diagnosed Date [...] as of this encounter (statuses as of 05/15/2023) Resolved Problems Problem Noted Date Diagnosed Date Resolved Date H. pylori infection 04/15/2012 07/16/19 21 documented as of this encounter (statuses as of 05/15/2023) Immunizations Name Administration Dates Next Due COVID-19 [...] as of this encounter Progress Notes * Susan Isaacs, [facility] - 05/15/2023 5:00 PM EDT [facility] Adult TPN Documentation Patient [...] 3.5 02/10/2023 02:35 PM PHOSPHORUS-OUTSIDE LAB 4.2 05/07/2023 12:00 AM Lab Results Component Value Date/Time [...] - add daily Most recent labs from 05/07/23 (Sanket Block, carolwarded to GI/Nutrition); Continue the same TPN. Next labs 05/21/23. Nutrition appointment 06/18/23. Susan Isaacs RPh 05/15/2023 5:01 PM documented in this encounter Plan of Treatment Upcoming Encounters Date Type Department Care Team (Late st Contact Info) Description 05/26/2023 1:00 PM EST Office Visit [facility] [address] [place] [phone] Meek Lopez MD [address] [place] [address] 05/27/2023 1:20 PM EST Office Visit Rheumatology [facility] [address] [place] [address] Jean Rodríguez MD [address] [place] [address] 06/06/2023 1:30 PM EST Immunization/Injection Hematology/Oncology Treatment, [place] [address] [place] [address] Nurse, Med 4 200 [place] [address] 06/13/2023 3:40 PM EST Telemedicine Nutrition & Weight Management, [place] [address], [place] [phone] Priyanka Pitts MD [address] [facility] [place] [phone] 07/22/2023 2:30 PM EST Laboratory Laboratory, [facility] 132 [facility] [place] [address] Melania Schuster Tiffany 132 [facility] [place] [address] 07/29/2023 2:30 PM EST Office Visit Hematology/Oncology [facility] [place] [address] [facility] [address] Lupe Arboleda CRNP [address] [place] [address] 09/25/2023 1:00 PM EDT Appointment Interventional Radiology [facility], [facility] 1st Floor 100 [facility] [place] [address] Health Maintenance Due Date Last Done [...] this encounter Medical Devices Implanted Type Area Industrial Aerial Installer Device Identifier Shelf Expiration Date Model / Serial / Lot Tube Feed 16f 45 - [id number] Implanted:Qty : 1 on 10/16/2020 at [facility] Left: Abdomen [facility] [id number] 08/09/2021 [id number] documented as of this encounter Advance Directives [...] the patient have Health Care Power of Hvac Operations Technician? No Code Status History Code Status Date Activated Date Inactivated Comments Full Code 08/29/2020 12:26 PM 09/06/2020 7:08 PM Question Answer Comments Discussion of Advance Direct albert occurred with: Not Discussed Does the patient have a Living Will? No Does the patient have Health Care Power of Hvac Operations Technician? No Care Teams Field Service Poultry Technician Relationship Specialty Start Date End Date Meek Lopez MD [address] [place] [address] PCP - General Family Medicine 03/17/20 documented as of this encounter
--- OUTSIDE RECORDS SUMMARY | 2023-07-04 03:46 | External Medical Summary | Summary of Care ---
Author Name Unknown Organization [facility] Address [address] [place] [address] Phone [phone] Care Team Providers Care Trailer Rental Clerk Name Role Phone Meek Lopez MD Primary Care Provider +1- [phone] Reason for Visit * Reason Onset Date Comments Appointment 06/09/2023 [place] Encounter Details Date Type Department Care Team (Late st Contact Info) Description 06/09/2023 Telephone Access Center, [place] [address] [facility] *DO NOT REMOVE THIS DEPARTMENT* [place], [place] [id number] Services, Scheduling [address] [place] [address] Appointment ([place] ) Allergies Active Allergy Reactions Criticality Noted Date [...] as of this encounter (statuses as of 06/09/2023) Medications Medication Sig Dispensed Refills Start Date [...] 1 Each 11 05/29/2022 Active Dexcom G6 Computer Forensic Specialist DeviceIndications: Hypoglycemia Use as directed. 1 Each 0 08/02/2022 Active Omeprazole 20 MG Oral Capsule Delayed Release (PriLOSEC) take 1 capsule by mouth IN THE MORNING and take 1 capsule by mouth BEFORE BEDTIME 60 Capsule 3 08/22/2022 Active Cholecalciferol 1.25 MG (10833 UT) Oral CapsuleIndications :Vitamin D deficiency Take [...] as of this encounter (statuses as of 06/09/2023) Active Problems Problem Noted Date Diagnosed Date [...] as of this encounter (statuses as of 06/09/2023) Resolved Problems Problem Noted Date Diagnosed Date Resolved Date H. pylori infection 04/15/2012 07/16/19 21 documented as of this encounter (statuses as of 06/09/2023) Immunizations Name Administration Dates Next Due COVID-19 [...] No 10/16/2020 documented as of this encounter Miscellaneous Notes * Telephone Encounter - Humera Morrell OSA - 06/09/2023 3:29 PM EST Spoke to patient, scheduled injection 06/13/23 @ 10:30 am. * Telephone Encounter - Concetta Mendes OSA - 06/09/2023 2:59 PM EST Pt calling in to reschedule missed injection. Please call patient back. Thank you. documented in this encounter Plan of Treatment Upcoming Encounters Date Type Department Care Team (Late st Contact Info) Description 06/13/2023 10:30 AM EST Immunization/Injection Hematology/Oncology Treatment, [place] [address] [place] [address] Nurse, Med [address] [facility] [place] [address] 06/13/2023 3:40 PM EST Telemedicine Nutrition & Weight Management, [place] [address] [place] [address] Priyanka Pitts MD [address], [place] [phone] 07/22/2023 2:30 PM EST Laboratory Laboratory, [facility] [address] [place] [address] [facility] [address] [place] [address] 07/29/2023 2:30 PM EST Office Visit Hematology/Oncology [facility] [address] [facility] [address] Lupe Arboleda CRNP [address] [place] [address] 09/24/2023 12:20 PM EDT Office Visit [facility] [address] [place] [address] Meek Lopez MD [address], [place] [phone] 09/25/2023 1:00 PM EDT Appointment [place]ventional [place] [facility] [facility] 1st Floor [address] [place] [address] 05/26/2024 1:00 PM EST Office Visit Rheumatology [facility] [address] [facility] [place] [address] Jean Rodríguez MD [address] [place] [address] Health Maintenance Due Date Last Done Comments [...] this encounter Medical Devices Implanted Type Area Shuttle Threader Device Identifier Shelf Expiration Date Model / Serial / Lot Tube Feed 16f 45 - [id number] Implanted:Qty : 1 on 10/16/2020 at [facility] Left: Abdomen [facility] [id number] 08/09/2021 0250-16 / / [id number] documented as of this encounter Advance Directives [...] the patient have Health Care Power of Camouflage Specialist? No Code Status History Code Status Date Activated Date Inactivated Comments Full Code 08/29/2020 12:26 PM 09/06/2020 7:08 PM Question Answer Comments Discussion of Advance Direct albert occurred with: Not Discussed Does the patient have a Living Will? No Does the patient have Health Care Power of Camouflage Specialist? No Care Teams Trailer Rental Clerk Relationship Specialty Start Date End Date Meek Lopez MD [address] [place] [facility] [place] [address] PCP - General Family Medicine 03/17/20 documented as of this encounter
--- OUTSIDE RECORDS SUMMARY | 2023-07-04 03:46 | External Medical Summary | Summary of Care ---
Author Name Unknown Organization [facility] Address [address] [place] [address] Phone [phone] Care Team Providers Care Tire Bladder Maker Name Role Phone Meek Lopez MD Primary Care Provider +1- [phone] Encounter Details Date Type Department Care Team (Late st Contact Info) Description 06/02/2023 Orders Only Nutrition & Weight Management, [place] [address] [place] [address] Priyanka Pitts MD [address] [place] [address] Allergies Active Allergy Reactions Criticality [...] as of this encounter (statuses as of 06/02/2023) Medications Medication Sig Dispensed Refills Start Date [...] 1 Each 11 05/29/2022 Active Dexcom G6 State Archivist DeviceIndications: Hypoglycemia Use as directed. 1 Each 0 08/02/2022 Active Omeprazole 20 MG Oral Capsule Delayed Release (PriLOSEC) take 1 capsule by mouth IN THE MORNING and take 1 capsule by mouth BEFORE BEDTIME 60 Capsule 3 08/22/2022 Active Cholecalciferol 1.25 MG (88235 UT) Oral CapsuleIndications :Vitamin D deficiency Take [...] as of this encounter (statuses as of 06/02/2023) Active Problems Problem Noted Date Diagnosed Date [...] as of this encounter (statuses as of 06/02/2023) Resolved Problems Problem Noted Date Diagnosed Date Resolved Date H. pylori infection 04/15/2012 07/16/19 21 documented as of this encounter (statuses as of 06/02/2023) Immunizations Name Administration Dates Next Due COVID-19 [...] PM EST Telemedicine Nutrition & Weight Management, [place] [address] [place] [address] Priyanka Pitts MD [address] [place] [address] 07/22/2023 2:30 PM EST Laboratory Laboratory, [facility] [address] [facility] [place] [phone] Melania Schuster [address] [facility] [place] [address] 07/29/2023 2:30 PM EST Office Visit Hematology/Oncology [facility] 200 [facility] [place] [address] Lupe Arboleda CRNP [address] [place] [address] 09/24/2023 12:20 PM EDT Office Visit [facility] [address] [place] [address] Meek Lopez MD [address] [place] [address] 09/25/2023 1:00 PM EDT Appointment [place] [facility] [place] [facility] 1st Floor [address] [place] [address] 05/26/2024 1:00 PM EST Office Visit Rheumatology [address] [place] [address] Jean Rodríguez MD [address] [facility] [place] [address] Health Maintenance Due Date Last Done Comments [...] this encounter Medical Devices Implanted Type Area Spring Repairer Helper Hand Device Identifier Shelf Expiration Date Model / Serial / Lot Tube Feed 16f 45 - [id number] Implanted:Qty : 1 on 10/16/2020 at [facility] Left: Abdomen [facility] [id number] 08/09/2021 [id number] documented as of this encounter Procedures Procedure Name Priority Date/Time Associated Diagnosis Comments CHEMISTRY-OUTSIDE Routine 05/28/2023 documented in this encounter Results * CHEMISTRY-OUTSIDE (05/28/2023) Not all results display below - see scan for full detail OUTSIDE LAB (SEE SCANNED REPORT) Comment:"SCAN INCLUDES" - CM P, PHOS, MG, TRIG, CBC, PLT CREATININE-OUTSID E LAB 0.65 0.6 - 1.2 MG/DL OUTSIDE LAB (SEE SCANNED REPORT) EGFR-OUTSIDE LAB 123.4 NO RANGE ML/MIN/1.7 3M2 OUTSIDE LAB (SEE SCANNED REPORT) POTASSIUM-OUTSIDE LAB 4.1 3.5 - 5.1 MMOL/L OUTSIDE LAB (SEE SCANNED REPORT) GLUCOSE-OUTSIDE LAB 80 70 - 99 MG/DL OUTSIDE LAB (SEE SCANNED REPORT) HOURS FASTING OUTSID E LAB (SEE SCANNED REPORT) TRIGLYCERIDES-OUT SIDE LAB 79 0 - 150 MG/DL OUTSIDE LAB (SEE SCANNED REPORT) CHOLESTEROL-OUTSI DE LAB OUTSIDE LAB (SEE SCANNED REPORT) HDL-OUTSIDE LAB OUTS DANIEL LAB (SEE SCANNED REPORT) CHOL/HDL RATIO-OUTSIDE LAB OUTSIDE LA B (SEE SCANNED REPORT) LDL (CALCULATED)-OUTS DANIEL LAB OUTSIDE LAB (SEE SCANNED REPORT) LDL (DIRECT MEASURE)-OUTSIDE LAB OUTSIDE LAB (SEE SCANNED REPORT) HEMOGLOBIN, [id number] LAB OUTSIDE LAB (SEE SCANNED REPORT) PHOSPHORUS-OUTSID E LAB 3.7 2.5 - 4.9 MG/DL OUTSIDE LAB (SEE SCANNED REPORT) PTH-OUTSIDE LAB OUTS DANIEL LAB (SEE SCANNED REPORT) MICROALBUMIN RATIO-OUTSIDE LAB OUTSIDE LA B (SEE SCANNED REPORT) PROTEIN, UA-OUTSIDE LAB OUTSIDE LAB (SEE SCANNED REPORT) HEMOGLOBIN-OUTSID E LAB 12.9 12.0 - 16.0 G/DL OUTSIDE LAB (SEE SCANNED REPORT) 05/28/2023 Priyanka Pitts MD LABORATORY OUTSIDE LAB (SEE [...] patient have Health Care Power of Senior Interactive Producer? No Code Status History Code Status Date Activated Date Inactivated Comments Full Code 08/29/2020 12:26 PM 09/06/2020 7:08 PM Question Answer Comments Discussion of Advance Direct albert occurred with: Not Discussed Does the patient have a Living Will? No Does the patient have Health Care Power of Senior Interactive Producer? No Care Teams Tire Bladder Maker Relationship Specialty Start Date End Date Meek Lopez MD [address] [place] [address] PCP - General Family Medicine 03/17/20 documented as of this encounter
--- OUTSIDE RECORDS SUMMARY | 2023-07-04 03:46 | External Medical Summary | Summary of Care ---
Author Name Unknown Organization [facility] Address [address] [place] [address] Phone [phone] Care Team Providers Care Folder Machine Name Role Phone Meek Lopez MD Primary Care Provider +1- [phone] Reason for Visit * Reason Comments Medication Management Encounter Details Date Type Department Care Team (Late st Contact Info) Description 05/29/2023 9:45 AM [facility] [place] [address] [place] [address] Kiana [place] Pharmacist Tpn [address] [place] [phone] Allergies Active Allergy Reactions Criticality Noted Date [...] as of this encounter (statuses as of 05/29/2023) Medications Medication Sig Dispensed Refills Start Date [...] 1 Each 11 05/29/2022 Active Dexcom G6 Tombstone Carver DeviceIndications: Hypoglycemia Use as directed. 1 Each 0 08/02/2022 Active Omeprazole 20 MG Oral Capsule Delayed Release (PriLOSEC) take 1 capsule by mouth IN THE MORNING and take 1 capsule by mouth BEFORE BEDTIME 60 Capsule 3 08/22/2022 Active Cholecalciferol 1.25 MG (60217 UT) Oral CapsuleIndications :Vitamin D deficiency Take [...] as of this encounter (statuses as of 05/29/2023) Active Problems Problem Noted Date Diagnosed Date [...] as of this encounter (statuses as of 05/29/2023) Resolved Problems Problem Noted Date Diagnosed Date Resolved Date H. pylori infection 04/15/2012 07/16/19 21 documented as of this encounter (statuses as of 05/29/2023) Immunizations Name Administration Dates Next Due COVID-19 [...] this encounter Progress Notes * Nikki Pena, [facility] - 05/29/2023 8:49 AM EST [facility] Adult TPN Documentation Patient [...] [facility] 3.5 02/10/2023 02:35 PM PHOSPHORUS-OUTSIDE LAB 3.7 05/21/2023 12:00 AM Lab Results Component Value Date/Time [...] - add daily Most recent labs from 05/28/23 (kadie Paniagua to GI/Nutrition); Continue the same TPN. Next labs 06/04/23. Nutrition appointment 06/18/23. Nikki Pena RPh 05/29/2023 8:49 AM documented in this encounter Plan of Treatment Upcoming Encounters Date Type Department Care Team (Late st Contact Info) Description 06/06/2023 1:30 PM EST Immunization/Injection Hematology/Oncology Treatment, [place] [address] [place] [address] Nurse, Med [address] [place] [address] 06/13/2023 3:40 PM EST [facility] [address] [place] [address] Priyanka Pitts MD [address] [place] [address] 07/22/2023 2:30 PM EST [facility] [address] [facility] [address] Melania Schuster [address] [facility] [place] [address] 07/29/2023 2:30 PM EST Office Visit Hematology/Oncology [facility] 200 [place] [address] Lupe Arboleda CRNP [address] [place] [address] 09/24/2023 12:20 PM EDT [facility] [place] [place] [address] [place] [phone] Meek Lopez MD [address] [place] [address] 09/25/2023 1:00 PM EDT Appointment Interventional Radiology [facility] [place], [facility] 1st Floor [address] [place] [address] 05/26/2024 1:00 PM EST Office Visit Rheumatology [address] [place] [address] Jean Rodríguez MD [address] [place], [place] [address] Health Maintenance Due Date Last Done Comments [...] this encounter Medical Devices Implanted Type Area Pipe Fitter Supervisor Maintenance Device Identifier Shelf Expiration Date Model / Serial / Lot Tube Feed 16f 45 - [id number] Implanted:Qty : 1 on 10/16/2020 at [facility] Left: Abdomen [facility] [id number] 08/09/2021 0250-16 / / [id number] documented as of this encounter Advance Directives [...] the patient have Health Care Power of Youth Worker? No Code Status History Code Status Date Activated Date Inactivated Comments Full Code 08/29/2020 12:26 PM 09/06/2020 7:08 PM Question Answer Comments Discussion of Advance Direct albert occurred with: Not Discussed Does the patient have a Living Will? No Does the patient have Health Care Power of Youth Worker? No Care Teams Folder Machine Relationship Specialty Start Date End Date Meek Lopez MD [address] [place] [address] PCP - General Family Medicine 03/17/20 documented as of this encounter
--- OUTSIDE RECORDS SUMMARY | 2023-07-04 03:46 | External Medical Summary | Summary of Care ---
Author Name Unknown Organization [facility] Address [address] [place] [address] Phone [phone] Care Team Providers Care Joy Operator Name Role Phone Meek Lopez MD Primary Care Provider +1- [phone] Encounter Details Date Type Department Care Team (Late st Contact Info) Description 06/11/2023 Orders Only [facility] [address] [place] [address] Meek Lopez MD [address] [place] [address] Allergies Active Allergy Reactions Criticality [...] as of this encounter (statuses as of 06/11/2023) Medications Medication Sig Dispensed Refills Start Date [...] 1 Each 11 05/29/2022 Active Dexcom G6 Manager Of Construction DeviceIndications: Hypoglycemia Use as directed. 1 Each 0 08/02/2022 Active Omeprazole 20 MG Oral Capsule Delayed Release (PriLOSEC) take 1 capsule by mouth IN THE MORNING and take 1 capsule by mouth BEFORE BEDTIME 60 Capsule 3 08/22/2022 Active Cholecalciferol 1.25 MG (86098 UT) Oral CapsuleIndications :Vitamin D deficiency Take [...] as of this encounter (statuses as of 06/11/2023) Active Problems Problem Noted Date Diagnosed Date [...] as of this encounter (statuses as of 06/11/2023) Resolved Problems Problem Noted Date Diagnosed Date Resolved Date H. pylori infection 04/15/2012 07/16/19 21 documented as of this encounter (statuses as of 06/11/2023) Immunizations Name Administration Dates Next Due COVID-19 [...] 06/13/2023 10:30 AM EST Immunization/Injection Hematology/Oncology Treatment, [place] [address] [place] [address] Nurse, Med 200 [facility] [place] [address] 06/13/2023 3:40 PM EST Telemedicine Nutrition & Weight Management, [address] [phone] Priyanka Pitts MD [address] [place] [address] 07/22/2023 2:30 PM EST Laboratory Laboratory, [facility] 132 [place] [phone] [facility] 132 [place] [address] 07/29/2023 2:30 PM EST Office Visit Hematology/Oncology [facility] [address] [facility] [place] [address] Lupe Arboleda CRNP [address] [place] [address] 09/24/2023 12:20 PM EDT Office Visit [facility] [address] [place] [phone] Meek Lopez MD [address] [place] [address] 09/25/2023 1:00 PM EDT Appointment Interventional Radiology [facility] [place], [facility] 1st Floor [address] [place] [address] 05/26/2024 1:00 PM EST Office Visit Rheumatology [facility] [address] [employer] [facility] [place] [address] Jean Rodríguez MD [address] [employer] [facility] [place] [address] Health Maintenance Due Date Last Done Comments [...] this encounter Medical Devices Implanted Type Area Hook And Eye Sewing Machine Operator Device Identifier Shelf Expiration Date Model / Serial / Lot Tube Feed 16f 45 - [id number] Implanted:Qty : 1 on 10/16/2020 at [facility] Left: Abdomen [facility] [id number] 08/09/2021 [id number] documented as of this encounter Procedures Procedure Name Priority Date/Time Associated Diagnosis Comments CHEMISTRY-OUTSIDE Routine 06/10/2023 documented in this encounter Results * (ABNORMAL) CHEMISTRY-OUTSIDE (06/10/2023) Not all results display below - see scan for full detail OUTSIDE LAB (SEE SCANNED REPORT) Comment:SCAN INCLUDES-CMP,PH OS,MG,TRIG,CBC CREATININE-OUTSID E LAB 0.57(A) 0.6 - 1.2 MG/DL OUTSIDE LAB (SEE SCANNED REPORT) EGFR-OUTSIDE LAB 128.8 ML/MIN OUT SIDE LAB (SEE SCANNED REPORT) POTASSIUM-OUTSIDE LAB 4.2 3.5 - 5.1 MMOL/L OUTSIDE LAB (SEE SCANNED REPORT) GLUCOSE-OUTSIDE LAB 81 70 - 99 MG/DL OUTSIDE LAB (SEE SCANNED REPORT) HOURS FASTING OUTSID E LAB (SEE SCANNED REPORT) TRIGLYCERIDES-OUT SIDE LAB OUTSIDE LAB (SEE SCANNED REPORT) CHOLESTEROL-OUTSI DE LAB OUTSIDE LAB (SEE SCANNED REPORT) HDL-OUTSIDE LAB OUTS DANIEL LAB (SEE SCANNED REPORT) CHOL/HDL RATIO-OUTSIDE LAB OUTSIDE LA B (SEE SCANNED REPORT) LDL (CALCULATED)-OUTS DANIEL LAB OUTSIDE LAB (SEE SCANNED REPORT) LDL (DIRECT MEASURE)-OUTSIDE LAB OUTSIDE LAB (SEE SCANNED REPORT) HEMOGLOBIN, [id number] LAB OUTSIDE LAB (SEE SCANNED REPORT) PHOSPHORUS-OUTSID E LAB 4.0 2.5 - 4.9 MG/DL OUTSIDE LAB (SEE SCANNED REPORT) PTH-OUTSIDE LAB OUTS DANIEL LAB (SEE SCANNED REPORT) MICROALBUMIN RATIO-OUTSIDE LAB OUTSIDE LA B (SEE SCANNED REPORT) PROTEIN, UA-OUTSIDE LAB OUTSIDE LAB (SEE SCANNED REPORT) HEMOGLOBIN-OUTSID E LAB 13.3 12.0 - 16.0 G/DL OUTSIDE LAB (SEE SCANNED REPORT) 06/10/2023 Priyanka Pitts MD LABORATORY OUTSIDE LAB (SEE [...] the patient have Health Care Power of Staff Sonographer? No Code Status History Code Status Date Activated Date Inactivated Comments Full Code 08/29/2020 12:26 PM 09/06/2020 7:08 PM Question Answer Comments Discussion of Advance Direct albert occurred with: Not Discussed Does the patient have a Living Will? No Does the patient have Health Care Power of Staff Sonographer? No Care Teams Joy Operator Relationship Specialty Start Date End Date Meek Lopez MD [address] [facility] [place] [address] PCP - General Family Medicine 03/17/20 documented as of this encounter
--- OUTSIDE RECORDS SUMMARY | 2023-07-04 03:46 | External Medical Summary | Summary of Care ---
Author Name Unknown Organization [facility] Address [address] [place] [address] Phone [phone] Care Team Providers Care Agronomy Research Manager Name Role Phone Meek Lopez MD Primary Care Provider [phone]- [phone] Reason for Visit * Reason Comments Rheum Follow Up Follow up - EDS Encounter Details Date Type Department Care Team (Late st Contact Info) Description 05/27/2023 1:20 PM EST Office Visit Rheumatology [place] [address] [place] [address] Jean Rodríguez MD [facility] [place] [address] Jaqui-Danlos, hypermobile type*; Chronic pain syndrome; Other iron deficiency anemias Allergies Active Allergy Reactions Criticality Noted Date [...] as of this encounter (statuses as of 05/27/2023) Medications Medication Sig Dispensed Refills Start Date [...] feeding tube via feeding pump. 1 Each 06/20/2021 Active Thiamine HCl 100 MG Oral Tablet (vitamin B-1) Take 1 Tablet by mouth in the morning. For 7 days. 0 Active Linzess 145 MCG Oral Capsule take 1 capsule by mouth every morning before breakfast 0 12/26/2021 Active Enteral Nutrition Supplies Supplies needed for maintenance of feeding tube via bolus syringe. 1 Each 05/29/2022 Active Dexcom G6 Bindery Machine Setter/Set Up Operator DeviceIndications:H ypoglycemia Use as directed. 1 Each 0 08/02/2022 Active Omeprazole 20 MG Oral Capsule Delayed Release (PriLOSEC) take 1 capsule by mouth IN THE MORNING and take 1 capsule by mouth BEFORE BEDTIME 60 Capsule 3 08/22/2022 Active Cholecalciferol 1.25 MG (34510 UT) Oral CapsuleIndications: Vitamin D deficiency Take [...] Injection Kit (Cyanocobalamin) 1,000 mcg. 0 Active Naltrexone 3 MG OR Capsule Take 2mg daily for 1 week, 3mg daily for 1 week then 4.5mg daily 30 Capsule 2 05/28/2022 3 Discontinu ed(Patient preference /discontin uation) Ondansetron 4 MG Oral Tablet Disintegrating (Zofran) Place 2 Tablets on tongue every 8 hours as needed for Nausea. dissolve on tongue. 180 Tablet 1 10/28/2022 3 Discontinu ed(Patient preference /discontin uation) Tenapanor HCl 50 MG Oral Tablet Take 50 mg by mouth in the morning and 50 mg before bedtime. 0 04/30/2023 3 Discontinu ed(Patient preference /discontin uation) documented as of this encounter (statuses as of 05/27/2023) Active Problems Problem Noted Date Diagnosed Date [...] as of this encounter (statuses as of 05/27/2023) Resolved Problems Problem Noted Date Diagnosed Date Resolved Date H. pylori infection 04/15/2012 07/16/19 21 documented as of this encounter (statuses as of 05/27/2023) Immunizations Name Administration Dates Next Due COVID-19 [...] Sign Reading Time Taken Comments Blood Pressure - - Pulse - - Temperature 36.6 C (97.8 F) 05/27/2023 1:31 PM ES T Respiratory Rate - - Oxygen Saturation - - Inhaled Oxygen Concentration - - Weight 46.3 kg (102 lb) 05/27/2023 1:31 PM EST Height - - Body Mass Index 18.07 05/26/2023 12:54 PM EST documented in this [...] as of this encounter Progress Notes * Jean Rodríguez MD - 05/27/2023 1:44 PM EST Subjective: Patient seen today for further follow up evaluation of EDS, 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 Since the last visit she has dealt with several issues since last visit. She has noted worsening neuropathyin her legs after starting iron treatment. She also had side effects from the IV iron treatment as well. She also had to have her J tube replaced. Her shooting pains from the neuropathy has gone away. She notes more sensitivity to touch and feels like she is wearing compression stockings all the time. She has tried and been intolerant to gabapentin, elavil and lyrica. She had tried naltrexone as well at low doses and that did not help either. She reports she has upcoming appointments with GI at [facility] as well as a pain clinic. Musculoskeletal ROS: . Abnormal: joint pain . Pain scale (0-10): 4 Other ROS: . Constitutional: normal . Head normal . Eyes: normal . Ears, nose, throat, mouth: normal . Cardiovascular: normal . Respiratory: normal . Gastrointestinal: See above . Genitourinary: normal . Neurologic: numbness All other ROS reviewed and negative Social History: Social History Tobacco Use Smoking status: Never Smokeless tobacco: Never Substance Use Topics Alcohol use: No Vaping/E-Cigarette Use Vaping/E-Cigarette Use Never User Vaping/E-Cigarette Substances Vaping/E-Cigarette Devices Current Outpatient Medications Medication Sig Dispense Refill [...] bolus syringe. 1 Each 11 Dexcom G6 Bindery Machine Setter/Set Up Operator Device Use as directed. 1 Each 0 Omeprazole 20 MG Oral Capsule Delayed Release (PriLOSEC) take 1 capsule by mouth IN THE MORNING andtake 1 capsule by mouth BEFORE BEDTIME 60 Capsule 3 Cholecalciferol 1.25 MG (24348 UT) Oral Capsule Take 1 Capsule by [...] 1000 MCG/ML Injection Kit (Cyanocobalamin) 1,000 mcg. Naltrexone 3 MG OR Capsule Take 2mg daily for 1 week, 3mg daily for 1 week then 4.5mg daily (Patient not taking: Reported on 12/20/2022) 30 Capsule 2 Ondansetron 4 MG Oral Tablet Disintegrating (Zofran) Place 2 Tablets on tongue every 8 hours as needed for Nausea. dissolve on tongue. (Patient not taking: Reported on 05/26/2023) 180 Tablet 1 Tenapanor HCl 50 MG Oral Tablet Take 50 mg by mouth in the morning and 50 mg before bedtime. (Patient not taking: Reported on 05/27/2023) No current facility-administered medications for this visit. 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 Unfortunately given her GI issues she does not have many treatment options. Plan: 1. Await evaluations at [facility] 2. Continue care with GI 3. Return to clinic in 1 year Jean Rodríguez MD Department of Rheumatology documented in this encounter Nursing Notes * Adriana Fischer LPN - 05/27/2023 1:29 PM EST Chief Complaint Patient presents with Rheum Follow Up Follow up - EDS documented in this encounter Plan of Treatment Upcoming Encounters Date Type Department Care Team (Late st Contact Info) Description 06/06/2023 1:30 PM EST Immunization/Injection Hematology/Oncology Treatment, [place] [address] [facility] [address] [place], [place] [address] Nurse, Med [address] [facility] [place] [address] 06/13/2023 3:40 PM EST Telemedicine Nutrition & Weight Management, [place] [address] [place] [address] Priyanka Pitts MD [address] [place] [address] 07/22/2023 2:30 PM EST Laboratory Laboratory, [facility] [address] [place] [phone] [facility] [address] [place] [address] 07/29/2023 2:30 PM EST Office Visit Hematology/Oncology [facility] [address] [facility] [place], [place] [address] Lupe Arboleda CRNP [address] [place] [address] 09/24/2023 12:20 PM EDT Office Visit [facility] [address] [place] [phone] Meek Lopez MD [address] [place] [address] 09/25/2023 1:00 PM EDT Appointment Interventional Radiology [facility], [facility] 1st Floor [address] [place] [phone] 05/26/2024 1:00 PM EST Office Visit Rheumatology [address] [place], [place] [address] Jean Rodríguez MD [facility] [place] [address] Health Maintenance Due Date Last Done Comments [...] this encounter Medical Devices Implanted Type Area Nutritionists Device Identifier Shelf Expiration Date Model / Serial / Lot Tube Feed 16f 45 - [id number] Implanted:Qty : 1 on 10/16/2020 at [facility] Left: Abdomen [facility] [id number] 08/09/2021 0250-16 / / [id number] documented as of this encounter Visit Diagnoses Diagnosis Jaqui-Danlos, hypermobile type- Primary Chronic pain syndrome Other iron deficiency anemias documented in this encounter Advance Directives Latest [...] the patient have Health Care Power of Clutch Inspector? No Code Status History Code Status Date Activated Date Inactivated Comments Full Code 08/29/2020 12:26 PM 09/06/2020 7:08 PM Question Answer Comments Discussion of Advance Direct albert occurred with: Not Discussed Does the patient have a Living Will? No Does the patient have Health Care Power of Clutch Inspector? No Care Teams Agronomy Research Manager Relationship Specialty Start Date End Date Meek Lopez MD [address] [place] [address] PCP - General Family Medicine 03/17/20 documented as of this encounter
--- OUTSIDE RECORDS SUMMARY | 2023-07-04 03:46 | External Medical Summary | Summary of Care ---
Author Name Unknown Organization [facility] Address [address] [place] [address] Phone [phone] Care Team Providers Care Auto Parts Counter Person Name Role Phone Meek Lopez MD Primary Care Provider [phone]- [phone] Reason for Visit * Reason Onset Date Comments FYI 02/26/2023 Encounter Details Date Type Department Care Team (Late st Contact Info) Description 02/26/2023 Telephone Access Center, [place] [address] [facility] *DO NOT REMOVE THIS DEPARTMENT* [place], [place] [id number] Services, Scheduling [address] [place] [address] (/) Allergies Active Allergy Reactions Criticality Noted Date [...] as of this encounter (statuses as of 05/28/2023) Medications Medication Sig Dispensed Refills Start Date [...] 1 Each 11 05/29/2022 Active Dexcom G6 Rivet Flunky DeviceIndications:H ypoglycemia Use as directed. 1 Each 0 08/02/2022 Active Omeprazole 20 MG Oral Capsule Delayed Release (PriLOSEC) take 1 capsule by mouth IN THE MORNING and take 1 capsule by mouth BEFORE BEDTIME 60 Capsule 3 08/22/2022 Active Cholecalciferol 1.25 MG (24599 UT) Oral CapsuleIndications: Vitamin D deficiency Take 1 Capsule by mouth once a week. 12 Capsule 1 08/30/2022 Active Dexcom G6 SensorIndications:H ypoglycemia Use as directed. 9 Each 3 12/23/2022 Active Naltrexone 3 MG OR Capsule Take [...] as of this encounter (statuses as of 05/28/2023) Active Problems Problem Noted Date Diagnosed Date [...] as of this encounter (statuses as of 05/28/2023) Resolved Problems Problem Noted Date Diagnosed Date Resolved Date H. pylori infection 04/15/2012 07/16/19 21 documented as of this encounter (statuses as of 05/28/2023) Immunizations Name Administration Dates Next Due COVID-19 [...] encounter Miscellaneous Notes * Telephone Encounter - Belkis Jeronimo OSA - 02/26/2023 12:29 PM EDT Sanket Block [facility] was calling in regards to her needing a new specimen. She states that they did find it and are able to run it, so another specimen is not needed. Called clinic and left voicemail. documented in this encounter Plan of Treatment Upcoming Encounters Date Type Department Care Team (Late st Contact Info) Description 06/06/2023 1:30 PM EST Immunization/Injection Hematology/Oncology Treatment, [place] [address] [place] [address] Nurse, Med 4 [address] [facility] [place] [address] 06/13/2023 3:40 PM EST Telemedicine Nutrition & Weight Management, [place] [address] [place] [address] Priyanka Pitts MD [address] [place], [place] [id number] 07/22/2023 2:30 PM EST Laboratory Laboratory, [facility] [address] [place] [address] [facility] [address] [place] [address] 07/29/2023 2:30 PM EST Office Visit Hematology/Oncology [facility] [address] [facility] [place] [address] Lupe Arboleda CRNP [address] [place] [address] 09/24/2023 12:20 PM EDT Office Visit [facility] [address] [place] [phone] Meek Lopez MD [address] [place] [address] 09/25/2023 1:00 PM EDT Appointment [facility]ventional [place] 1[facility] [address] [place] [address] 05/26/2024 1:00 PM EST Office Visit Rheumatology [place] [address] [facility] [place], [place] [address] Jean Rodríguez MD [address] [facility] [place] [address] Health Maintenance Due Date Last Done Comments [...] this encounter Medical Devices Implanted Type Area Packaging Assembler Device Identifier Shelf Expiration Date Model / Serial / Lot Tube Feed 16f 45 - [id number] Implanted:Qty : 1 on 10/16/2020 at [facility] Left: Abdomen [facility] [id number] 08/09/2021 0250-16 / / [id number] documented as of this encounter Advance Directives [...] the patient have Health Care Power of Physician Anesthesiologist? No Code Status History Code Status Date Activated Date Inactivated Comments Full Code 08/29/2020 12:26 PM 09/06/2020 7:08 PM Question Answer Comments Discussion of Advance Direct albert occurred with: Not Discussed Does the patient have a Living Will? No Does the patient have Health Care Power of Physician Anesthesiologist? No Care Teams Auto Parts Counter Person Relationship Specialty Start Date End Date Meek Lopez MD [address] [place] [address] PCP - General Family Medicine 03/17/20 documented as of this encounter
--- OUTSIDE RECORDS SUMMARY | 2023-07-04 03:46 | External Medical Summary | Summary of Care ---
Author Name Unknown Organization [facility] Address [address] [place] [address] Phone [phone] Care Team Providers Care Cytogenetic Technician Name Role Phone Meek Lopez MD Primary Care Provider +1- [phone] Encounter Details Date Type Department Care Team (Late st Contact Info) Description 06/04/2023 Orders Only Nutrition & Weight Management, [place] [address] [place] [address] Priyanka Pitts MD [address] [place] [address] On total parenteral nutrition (TPN)* Allergies Active Allergy Reactions Criticality Noted Date [...] as of this encounter (statuses as of 06/04/2023) Medications Medication Sig Dispensed Refills Start Date [...] 1 Each 11 05/29/2022 Active Dexcom G6 Cardiac Exercise Physiologist DeviceIndications: Hypoglycemia Use as directed. 1 Each 0 08/02/2022 Active Omeprazole 20 MG Oral Capsule Delayed Release (PriLOSEC) take 1 capsule by mouth IN THE MORNING and take 1 capsule by mouth BEFORE BEDTIME 60 Capsule 3 08/22/2022 Active Cholecalciferol 1.25 MG (91356 UT) Oral CapsuleIndications :Vitamin D deficiency Take [...] as of this encounter (statuses as of 06/04/2023) Active Problems Problem Noted Date Diagnosed Date [...] as of this encounter (statuses as of 06/04/2023) Resolved Problems Problem Noted Date Diagnosed Date Resolved Date H. pylori infection 04/15/2012 07/16/19 21 documented as of this encounter (statuses as of 06/04/2023) Immunizations Name Administration Dates Next Due COVID-19 [...] Progress Notes * Priyanka Pitts MD - 06/04/2023 3:38 PM EST Orders placed for weekly central line dressing changes. Priyanka Pitts MD documented in this encounter Plan of Treatment Upcoming Encounters Date Type Department Care Team (Late st Contact Info) Description 06/13/2023 3:40 PM EST [facility] [address] [place] [address] Priyanka Pitts MD [address] [place] [address] 07/22/2023 2:30 PM EST Laboratory Laboratory, [facility] [address] [place] [phone] [facility] [address] [place] [address] 07/29/2023 2:30 PM EST Office Visit Hematology/Oncology [facility] [address] [place] [address] Lupe Arboleda CRNP [address] [place] [address] 09/24/2023 12:20 PM EDT Office Visit [facility] [address] [place] [address] Meek Lopez MD [address] [place] [address] 09/25/2023 1:00 PM EDT Appointment Interventional Radiology [facility], [facility] 1st Floor [address] [place] [phone] 05/26/2024 1:00 PM EST Office Visit Rheumatology [address] [place] [address] Jean Rodríguez MD [facility] [place] [address] Health Maintenance Due Date Last Done Comments [...] this encounter Medical Devices Implanted Type Area Hat And Cap Drying Room Attendant Device Identifier Shelf Expiration Date Model / Serial / Lot Tube Feed 16f 45 - [id number] Implanted:Qty : 1 on 10/16/2020 at [facility] Left: Abdomen [facility] [id number] 08/09/2021 0250-16 / / [id number] documented as of this encounter Visit Diagnoses Diagnosis On total parenteral nutrition (TPN)- Primary Other specified conditions influencing health status documented [...] the patient have Health Care Power of Crane Mechanic? No Code Status History Code Status Date Activated Date Inactivated Comments Full Code 08/29/2020 12:26 PM 09/06/2020 7:08 PM Question Answer Comments Discussion of Advance Direct albert occurred with: Not Discussed Does the patient have a Living Will? No Does the patient have Health Care Power of Crane Mechanic? No Care Teams Cytogenetic Technician Relationship Specialty Start Date End Date Meek Lopez MD [address] [place] [address] PCP - General Family Medicine 03/17/20 documented as of this encounter
--- OUTSIDE RECORDS SUMMARY | 2023-07-04 03:47 | External Medical Summary | Summary of Care ---
Author Name Unknown Organization [facility] Address [address] [place] [address] Phone [phone] Care Team Providers Care Business Systems Architect Name Role Phone Meek Lopez MD Primary Care Provider +1- [phone] Encounter Details Date Type Department Care Team Description 04/04/2023 Orders Only Nutrition & Weight Management, [place] [address] [place] [address] Priyanka Pitts MD [address] [place] [address] Allergies Active Allergy Reactions Severity Noted Date Comments Diphenhydramine Other (Please comment) 09/24/2022 "Throat itching" "super jittery" Food (See Comments) Itching 07/15/2012 Strawberries,banana s,watermelon,cantel oupe, tomatoes, wheat, sesame seeds, egg white, milk, gluten, walnuts, hazlenuts. Most fruits and vegetables in the raw form. Gluten Meal Unknown 06/24/2021 Justicia Adhatoda 06/24/2021 Other reaction(s): Unknown Lactose Intolerance (Gi) 07/15/2012 Latex Edema Other,Itching 08/29/2020 Pt states site become red, swollen, and itching occures. Peanut-Containing Drug Products Nausea/vomiting,Othe r (Please comment) 07/04/2020 Slight throat itching Pollen Extract Low 06/24/2021 Other reaction(s): ITCHY EYES, SNEEZING, CONGESTION Prochlorperazine Anaphylaxis High 05/02/2021 Other reaction(s): Other (see comments) Chest pain Scopolamine Rash 05/02/2021 Other reaction(s): Itching, Other (see comments) Blurry vision Tomato Itching 08/29/2020 Iron Sucrose High 01/24/2023 Wound Dressing Adhesive 07/04/2021 documented as of this encounter (statuses as of 04/04/2023) Medications Medication Sig Dispensed Refills Start Date [...] 1 Each 11 05/29/2022 Active Dexcom G6 Eyelet Punch Operator DeviceIndications:Hy poglycemia Use as directed. 1 Each 0 08/02/2022 Active Omeprazole 20 MG Oral Capsule Delayed Release (PriLOSEC) take 1 capsule by mouth IN THE MORNING and take 1 capsule by mouth BEFORE BEDTIME 60 Capsule 3 08/22/2022 Active Cholecalciferol 1.25 MG (16284 UT) Oral CapsuleIndications:V itamin D deficiency Take [...] as of this encounter (statuses as of 04/04/2023) Active Problems Problem Noted Date Other vitamin B12 deficiency anemias 05/2022 Other iron deficiency anemias 05/17/2022 Generalized intestinal dysmotility 08/29 Chronic pain syndrome 05/28/2021 De Quervain's disease (tenosynovitis) Encounter for gastrojejunal (GJ) tube pl acement 10/16/2020 Underweight 08/28/2020 Unintentional weight loss of 7.5% body w eight or less within 3 months 08/28/2020 Severe protein-calorie malnutrition 08/14 Jaqui-Danlos, 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 pylori infection 04/15/2012 07/16/2020 documented as of this encounter (statuses as of 04/04/2023) Immunizations Name Administration Dates Next Due COVID-19 mRNA, LNP-s, No Pre serve, 2-Dose Series (Moderna) 06/20/2021,11/20/2020,10/21/2020 Seasonal Influenza, Quadriva lent, No Preserve, Mdck 06/13/2022,05/23/2020 documented as of this encounter Social History Tobacco Use Types Packs/Day Years Used Date Smoking Tobacco: Never Smokeless Tobacco: Never Alcohol Use Standard Drinks/Week Comments No 0 (1 standard drink = 0.6 oz pur e alcohol) Food Insecurity Answer Date Recorded Within the past 12 months, y ou worried that your food would run out before you got money to buy more. Never true 07/20/2022 Within the past 12 months, t he food you bought just didn't last and you didn't have money to get more. Never true 07/20/2022 Sex Assigned at Date Recorded Female 05/25/2022 7:[address] Job Start Date Occupation Industry Not on [...] Plan of Treatment Upcoming Encounters Date Type Specialty Care Team Description 04/11/2023 Immunization/Injection Hematology Oncolog y Nurse, Med [address] [place] [address] 05/26/2023 Office Visit Family Medicine Meek Lopez MD [address] [place] [address] 05/27/2023 Office Visit Rheumatology Jean Rodríguez MD [address] [place] [address] 06/13/2023 Telemedicine Gastroenterology Priyanka Pitts MD [address] [place] [address] 07/22/[address] [facility], Lab [place] [address] [place] [address] 07/29/2023 Office Visit Hematology Oncology Lupe Arboleda CRNP [address] [place] [address] 09/25/2023 Appointment Radiology Health Maintenance Due Date Last Done Comments Hepatitis B (1 of 3 - 3-dose series) 1997 GARDASIL-HPV IMMUNIZATION SERIES (1 - 2-dose series) 2008 Depression Screening 2009 HIV Screening 2012 Hepatitis C Screening 09/24/2015 DTaP,Tdap,and Td Vaccines (1 - Tdap) 2016 Pap Smear 2018 COVID-19 Vaccine (4 - Moderna series) 08/15/2021 06/20/2021, 11/20/2020, 10/21/2020 Influenza Vaccine (FLU shot) [...] this encounter Medical Devices Implanted Type Area Creel Cleaner Device Identifier Shelf Expiration Date Model / Serial / Lot Tube Feed 16f 45 - [id number] Implanted:Qty : 1 on 10/16/2020 at [facility] Left: [facility]dom[facility] [id number] 08/09/2021 0250-16 / [id number] documented as of this encounter Procedures Procedure Name Priority Date/Time Associated Diagnosis Comments CHEMISTRY-OUTSIDE Routine 04/02/2023 documented in this encounter Results * (ABNORMAL) CHEMISTRY-OUTSIDE (04/02/2023) Not all results display below - see scan for full detail OUTSIDE LAB (SEE SCANNED REPORT) Comment:SCAN INCLUDES - CMP, PHOSPHORUS, MAGNESIUM, TRIG, CBC CREATININE-OUTSID E LAB 0.62 0.6 - 1.2 MG/DL OUTSIDE LAB (SEE SCANNED REPORT) EGFR-OUTSIDE LAB 125.3 ML/MIN OUT SIDE LAB (SEE SCANNED REPORT) POTASSIUM-OUTSIDE LAB 4.0 3.5 - 5.1 MMOL/L OUTSIDE LAB (SEE SCANNED REPORT) GLUCOSE-OUTSIDE LAB 86 70 - 99 MG/DL OUTSIDE LAB (SEE SCANNED REPORT) HOURS FASTING OUTSID E LAB (SEE SCANNED REPORT) TRIGLYCERIDES-OUT SIDE LAB 62 0 - 150 MG/DL OUTSIDE LAB (SEE SCANNED REPORT) CHOLESTEROL-OUTSI DE LAB OUTSIDE LAB (SEE SCANNED REPORT) HDL-OUTSIDE LAB OUTS DANIEL LAB (SEE SCANNED REPORT) CHOL/HDL RATIO-OUTSIDE LAB OUTSIDE LA B (SEE SCANNED REPORT) LDL (CALCULATED)-OUTS DANIEL LAB OUTSIDE LAB (SEE SCANNED REPORT) LDL (DIRECT MEASURE)-OUTSIDE LAB OUTSIDE LAB (SEE SCANNED REPORT) HEMOGLOBIN, [id number] LAB OUTSIDE LAB (SEE SCANNED REPORT) PHOSPHORUS-OUTSID E LAB 3.5 2.5 - 4.9 MG/DL OUTSIDE LAB (SEE SCANNED REPORT) PTH-OUTSIDE LAB OUTS DANIEL LAB (SEE SCANNED REPORT) MICROALBUMIN RATIO-OUTSIDE LAB OUTSIDE LA B (SEE SCANNED REPORT) PROTEIN, UA-OUTSIDE LAB OUTSIDE LAB (SEE SCANNED REPORT) HEMOGLOBIN-OUTSID E LAB 13.1 12.0 - 16.0 G/DL OUTSIDE LAB (SEE SCANNED REPORT) 04/02/2023 Priyanka Pitts MD LABORATORY OUTSIDE LAB (SEE [...] the patient have Health Care Power of Proposal Manager Writer? No Code Status History Code Status Date Activated Date Inactivated Comments Full Code 08/29/2020 12:26 PM 09/06/2020 7:08 PM Question Answer Comments Discussion of Advance Direct albert occurred with: Not Discussed Does the patient have a Living Will? No Does the patient have Health Care Power of Proposal Manager Writer? No Care Teams Business Systems Architect Relationship Specialty Start Date End Date Meek Lopez MD [address] [place] [address] PCP - General Family Medicine 03/17/20 documented as of this encounter
--- OUTSIDE RECORDS SUMMARY | 2023-07-04 03:47 | External Medical Summary | Summary of Care ---
Author Name Unknown Organization [facility] Address [address] [place] [address] Phone [phone] Care Team Providers Care Manager Furniture Name Role Phone Meek Lopez MD Primary Care Provider +1- [phone] Reason for Referral * Precert (Within 10 days (routine)) - Pending Review Specialty Diagnoses / Procedures Referred By Contac t Referred To Contact Radiology Diagnoses 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) Severe protein-calorie malnutrition (HCC) Jaqui-Danlos, hypermobile type Procedures IR GASTROINTESTINAL OSTOMY Dickson Shaffer MD [address] [place] [address] Referral ID Status Reason Start Date Expiration Date V isits Requested Visits Authorized [id number] Pending Review 06/30/[phone] Encounter Details Date Type Department Care Team Description 03/31/2023 Orders Only Radiology, [place] [address], [place] [id number] Dickson Shaffer MD [address], [place] [id number] 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)*; Severe protein-calorie malnutrition (HCC); Jaqui-Danlos, hypermobile type Allergies Active Allergy Reactions Severity Noted Date [...] as of this encounter (statuses as of 03/31/2023) Medications Medication Sig Dispensed Refills Start Date [...] 1 Each 11 05/29/2022 Active Dexcom G6 Flexible Babysitter DeviceIndications:Hy poglycemia Use as directed. 1 Each 0 08/02/2022 Active Omeprazole 20 MG Oral Capsule Delayed Release (PriLOSEC) take 1 capsule by mouth IN THE MORNING and take 1 capsule by mouth BEFORE BEDTIME 60 Capsule 3 08/22/2022 Active Cholecalciferol 1.25 MG (26132 UT) Oral CapsuleIndications:V itamin D deficiency Take [...] as of this encounter (statuses as of 03/31/2023) Active Problems Problem Noted Date Other vitamin [...] as of this encounter (statuses as of 03/31/2023) Resolved Problems Problem Noted Date Resolved Date H. pylori infection 04/15/2012 07/16/2020 documented as of this encounter (statuses as of 03/31/2023) Immunizations Name Administration Dates Next Due COVID-19 [...] Hematology Oncolog y Nurse, Med [address] [place] [address] 05/26/2023 Office Visit Family Medicine Meek Lopez MD [address] [place] [address] 05/27/2023 Office Visit Rheumatology Jean Rodríguez MD [address] [place] [address] 06/13/2023 Telemedicine Gastroenterology Priyanka Pitts MD [address] [place] [address] 07/22/2023 Laboratory Laboratory [facility], Lab [place] [address] [place] [address] 07/29/2023 Office Visit Hematology Oncology Lupe Arboleda CRNP [address] [place], [place] [id number] Scheduled Orders Name Type Priority Associated Diagnoses Orde r Schedule IR GASTROINTESTINAL OSTOMY Medical Imaging Routine 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) Severe protein-calorie malnutrition (HCC) Jaqui-Danlos, hypermobile type Expected: 06/30/2023, Expires: 04/30/2024 Health Maintenance Due Date Last Done Comments [...] this encounter Medical Devices Implanted Type Area Work Order Detailer Device Identifier Shelf Expiration Date Model / Serial / Lot Tube Feed 16f 45 - [id number] Implanted:Qty : 1 on 10/16/2020 at [facility] Left[facility] [id number] 08/09/2021249-16 / [id number] documented as of this encounter Visit Diagnoses Diagnosis 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)- Primary Gastrostomy status Severe protein-calorie malnutrition (HCC) Other severe protein-calorie malnutrition Jaqui-Danlos, hypermobile type documented in this encounter Advance Directives Latest [...] the patient have Health Care Power of Manufacturing Sales Representative? No Code Status History Code Status Date Activated Date Inactivated Comments Full Code 08/29/2020 12:26 PM 09/06/2020 7:08 PM Question Answer Comments Discussion of Advance Direct albert occurred with: Not Discussed Does the patient have a Living Will? No Does the patient have Health Care Power of Manufacturing Sales Representative? No Care Teams Manager Furniture Relationship Specialty Start Date End Date Meek Lopez MD [address] [place] [address] PCP - General Family Medicine 03/17/20 documented as of this encounter
--- OUTSIDE RECORDS SUMMARY | 2023-07-04 03:47 | External Medical Summary | Summary of Care ---
Author Name Unknown Organization [facility] Address [address] [place] [address] Phone [phone] Care Team Providers Care Videotape Sales Representative Name Role Phone Meek Lopez MD Primary Care Provider +1- [phone] Reason for Visit * Reason Comments Medication Management Encounter Details Date Type Department Care Team Description 04/03/2023 Pharmacy [facility] [address] [place] [address] ManageKiana Pharmacist Tpn [address] [place] [address] Allergies Active Allergy Reactions Severity Noted Date [...] as of this encounter (statuses as of 04/03/2023) Medications Medication Sig Dispensed Refills Start Date [...] 1 Each 11 05/29/2022 Active Dexcom G6 Hospice Case Manager DeviceIndications:Hy poglycemia Use as directed. 1 Each 0 08/02/2022 Active Omeprazole 20 MG Oral Capsule Delayed Release (PriLOSEC) take 1 capsule by mouth IN THE MORNING and take 1 capsule by mouth BEFORE BEDTIME 60 Capsule 3 08/22/2022 Active Cholecalciferol 1.25 MG (54885 UT) Oral CapsuleIndications:V itamin D deficiency Take [...] as of this encounter (statuses as of 04/03/2023) Active Problems Problem Noted Date Other vitamin [...] as of this encounter (statuses as of 04/03/2023) Resolved Problems Problem Noted Date Resolved Date H. pylori infection 04/15/2012 07/16/2020 documented as of this encounter (statuses as of 04/03/2023) Immunizations Name Administration Dates Next Due COVID-19 [...] this encounter Progress Notes * Nikki Pena, [facility] - 04/03/2023 11:59 AM EDT [facility] Adult TPN Documentation Patient [...] 3.5 02/10/2023 02:35 PM PHOSPHORUS-OUTSIDE LAB 4.2 03/26/2023 12:00 AM Lab Results Component Value Date/Time CALCIUM - [facility] 9.7 02/10/2023 02:35 PM CALCIUM - [facility] 10.0 04/02/2012 12:24 PM CALCIUM, IONIZED - [facility] 1.15 05/30/2021 02:08 PM CALCIUM-OUTSIDE LAB 9.9 01/03/2020 01:22 PM Patient weight (kg): 47.8 Amino acids (gm): 72 Dextrose (gm): 200 Gm on Lipid day 250 Gm on non lipid days Lipids (gm): 53 Days per week (lipids): 1 Volume (ml):2800 Cycle (hr): 14 ( with two hour taper down) Days per week infused: 7 Sodium Chloride (mEq): - Sodium Phosphate (mM): 11 Sodium Acetate (mEq): 40 Potassium Chloride (mEq): 90 Potassium Phosphate (mM): - Potassium Acetate (mEq): Calcium Gluconate (mEq): 9 Magnesium Sulfate (mEq): 8 Multiple Trace elements (ml): Multivits (ml): - ( patient will switch to PO) Zinc (mg): 5 Selenium (mcg): 100 Copper (mg): 0.4 Manganese (mg): 0.055 Chromium (mcg): - Human Regular Insulin (Units): - Octreotide (mcg): - Famotidine (mg): - Other: Thiamine 100 mg daily, D5 1/2 NSS 1000 ml daily Ethanol Kenrick 70% - 2 ml to each lumen daily. (HOLD due to shortage) Folic Acid 2 mg - add daily Labs from 04/02/23 reviewed - Continue the same TPN New DL tunneled line placed at [facility] on 02/07/23. Labs can be drawn every other week at [facility]. GI Nutrition appointment - 06/13/23 Per Endocrinology appointment notes with Dr. Trinidad Rashid MD: Likely rebound hypoglycemiafrom TPN, discussed using honey or glucose gel to treat symptoms of low BG. ( Also TPN cycle changed to run over longer time period) Nikki Pena RPh 04/03/2023 11:59 AM documented in this encounter Plan of Treatment Upcoming Encounters Date Type Specialty Care Team Description 04/11/2023 Immunization/Injection Hematology Oncolog y Nurse, Med [address] [facility] [address] 05/26/2023 Office Visit Family Medicine Meek Lopez MD [address] [place] [address] 05/27/2023 Office Visit Rheumatology Jean Rodríguez MD [address] [place] [address] 06/13/2023 Telemedicine Gastroenterology Priyanka Pitts MD [address] [place] [address] 07/22/2023 Laboratory Laboratory [facility] [address] [place] [address] 07/29/2023 Office Visit Hematology Oncology [facility]eda [facility] [address] [facility] [address] 09/25/2023 Appointment Radiology Health Maintenance Due Date [...] this encounter Medical Devices Implanted Type Area Dye Stand Loader Device Identifier Shelf Expiration Date Model / Serial / Lot Tube Feed 16f 45 - [id number] Implanted:Qty : 1 on 10/16/2020 at [facility] Left: Abdomen [facility] [id number] 08/09/2021 0250-16 / / [id number] documented as of this encounter Advance Directives [...] the patient have Health Care Power of Rotary Drill Rig Operator? No Code Status History Code Status Date Activated Date Inactivated Comments Full Code 08/29/2020 12:26 PM 09/06/2020 7:08 PM Question Answer Comments Discussion of Advance Direct albert occurred with: Not Discussed Does the patient have a Living Will? No Does the patient have Health Care Power of Rotary Drill Rig Operator? No Care Teams Videotape Sales Representative Relationship Specialty Start Date End Date Meek Lopez MD [address] [place] [address] PCP - General Family Medicine 03/17/20 documented as of this encounter
--- OUTSIDE RECORDS SUMMARY | 2023-07-04 03:47 | External Medical Summary | Summary of Care ---
Author Name Unknown Organization [facility] Address [address] [place] [address] Phone [phone] Care Team Providers Care Landscape Laborer Name Role Phone Meek Lopez MD Primary Care Provider +1- [phone] Reason for Visit * Reason Comments Medication Management Encounter Details Date Type Department Care Team Description 05/01/2023 Pharmacy [facility] [address] [place] [address] ManageKiana Pharmacist Tpn [address] [place] [address] Allergies Active Allergy Reactions Severity [...] as of this encounter (statuses as of 05/01/2023) Medications Medication Sig Dispensed Refills Start Date [...] 1 Each 11 05/29/2022 Active Dexcom G6 Welt Drawer DeviceIndications:Hy poglycemia Use as directed. 1 Each 0 08/02/2022 Active Omeprazole 20 MG Oral Capsule Delayed Release (PriLOSEC) take 1 capsule by mouth IN THE MORNING and take 1 capsule by mouth BEFORE BEDTIME 60 Capsule 3 08/22/2022 Active Cholecalciferol 1.25 MG (29376 UT) Oral CapsuleIndications:V itamin D deficiency Take [...] as of this encounter (statuses as of 05/01/2023) Active Problems Problem Noted Date Other vitamin [...] as of this encounter (statuses as of 05/01/2023) Resolved Problems Problem Noted Date Resolved Date H. pylori infection 04/15/2012 07/16/2020 documented as of this encounter (statuses as of 05/01/2023) Immunizations Name Administration Dates Next Due COVID-19 [...] Progress Notes * Nikki Pena, [facility] - 05/01/2023 3:02 PM EDT [facility] Adult TPN Documentation Patient [...] [facility] 3.5 02/10/2023 02:35 PM PHOSPHORUS-OUTSIDE LAB 3.5 04/02/2023 12:00 AM Lab Results Component Value Date/Time CALCIUM - [facility] 9.7 02/10/2023 02:35 PM CALCIUM - [facility] 10.0 04/02/2012 12:24 PM CALCIUM, IONIZED - [facility] 1.15 05/30/2021 02:08 PM CALCIUM-OUTSIDE LAB 9.9 01/03/2020 01:22 PM Patient weight (kg): 48.53 Amino acids (gm): 72 Dextrose (gm): 200 [...] - add daily Most recent labs from 04/29/23 ([place], fowarded to GI/Nutrition); Continue the same TPN. Next labs 05/14/23. Nutrition appointment 06/18/23. Nikki Pena RPh 05/01/2023 3:02 PM documented in this encounter Plan of Treatment Upcoming Encounters Date Type Specialty Care Team Description 05/09/2023 Immunization/Injection Hematology Oncolog y Nurse, Med [address] [place] [address] 05/26/2023 Office Visit Family Medicine Meek Lopez MD [address] [place] [address] 05/27/2023 Office Visit Rheumatology Jean Rodríguez MD [address] [place] [address] 06/13/2023 [facility] [address] [place] [address] 07/22/[address] [facility] [address] [place] [address] 07/29/2023 Office Visit Hematology Oncology Lupe Arboleda CRNP [address] [place], [place] [id number] 09/25/2023 Appointment Radiology Health Maintenance Due Date [...] this encounter Medical Devices Implanted Type Area Truck Packer Device Identifier Shelf Expiration Date Model / Serial / Lot Tube Feed 16f 45 - [id number] Implanted:Qty : 1 on 10/16/2020 at [facility] Left: Abdomen [facility] [id number] 08/09/2021249- / [id number] documented as of this encounter Advance Directives [...] the patient have Health Care Power of Coal Hiker? No Code Status History Code Status Date Activated Date Inactivated Comments Full Code 08/29/2020 12:26 PM 09/06/2020 7:08 PM Question Answer Comments Discussion of Advance Direct albert occurred with: Not Discussed Does the patient have a Living Will? No Does the patient have Health Care Power of Coal Hiker? No Care Teams Landscape Laborer Relationship Specialty Start Date End Date Meek Lopez MD [address] [place] [address] PCP - General Family Medicine 03/17/20 documented as of this encounter
--- OUTSIDE RECORDS SUMMARY | 2023-07-04 03:47 | External Medical Summary | Summary of Care ---
Author Name Unknown Organization [facility] Address [address] [place] [address] Phone [phone] Care Team Providers Care Corn Cutter Operator Name Role Phone Meek Lopez MD Primary Care Provider +1- [phone] Encounter Details Date Type Department Care Team (Late st Contact Info) Description 05/08/2023 Orders Only Nutrition & Weight Management, [place] [address] [place] [address] Priyanka Pitts MD [address] [place] [address] Allergies Active Allergy Reactions Criticality [...] as of this encounter (statuses as of 05/08/2023) Medications Medication Sig Dispensed Refills Start Date [...] 1 Each 11 05/29/2022 Active Dexcom G6 Heating Engineer DeviceIndications:Hy poglycemia Use as directed. 1 Each 0 08/02/2022 Active Omeprazole 20 MG Oral Capsule Delayed Release (PriLOSEC) take 1 capsule by mouth IN THE MORNING and take 1 capsule by mouth BEFORE BEDTIME 60 Capsule 3 08/22/2022 Active Cholecalciferol 1.25 MG (23964 UT) Oral CapsuleIndications:V itamin D deficiency Take [...] as of this encounter (statuses as of 05/08/2023) Active Problems Problem Noted Date Diagnosed Date [...] as of this encounter (statuses as of 05/08/2023) Resolved Problems Problem Noted Date Diagnosed Date Resolved Date H. pylori infection 04/15/2012 07/16/19 21 documented as of this encounter (statuses as of 05/08/2023) Immunizations Name Administration Dates Next Due COVID-19 [...] Contact Info) Description 05/09/2023 1:30 PM EDT Immunization/Injection Hematology/Oncology Treatment, [place] [address] [place] [address] Nurse, Med 4 [address] [facility] [place] [address] 05/26/2023 1:00 PM EST Office Visit [facility] [address] [place] [address] Meek Lopez MD [address] [place] [address] 05/27/2023 1:20 PM EST Office Visit Rheumatology [place] [id number] [facility] [place] [address] Jean Rodríguez MD [address] [place] [address] 06/13/2023 3:40 PM EST Telemedicine Nutrition & Weight Management, [place] [address] [place] [address] Priyanka Pitts MD [address] [place] [address] 07/22/2023 2:30 PM EST Laboratory Laboratory, [facility] [address] [place] [address] [facility] [address] [place] [address] 07/29/2023 2:30 PM EST Office Visit Hematology/Oncology [facility] [address] [facility] [place] [address] Lupe Arboleda CRNP [address] [place] [address] 09/25/2023 1:00 PM EDT Appointment Interventional Radiology [facility] 1st Floor [address] [place] [address] Health Maintenance Due Date Last [...] this encounter Medical Devices Implanted Type Area Social Service Director Device Identifier Shelf Expiration Date Model / Serial / Lot Tube Feed 16f 45 - [id number] Implanted:Qty : 1 on 10/16/2020 at [facility] Left: Abdomen [facility] [id number] 08/09/2021 0250-16 [id number] documented as of this encounter Procedures Procedure Name Priority Date/Time Associated Diagnosis Comments CHEMISTRY-OUTSIDE Routine 05/07/2023 documented in this encounter Results * (ABNORMAL) CHEMISTRY-OUTSIDE (05/07/2023) Not all results display below - see scan for full detail OUTSIDE LAB (SEE SCANNED REPORT) Comment:"SCAN INCLUDES" - CM P, PHOS, MG, TRIG, CBC, PLT CREATININE-OUTSID E LAB 0.53(A) 0.6 - 1.2 MG/DL OUTSIDE LAB (SEE SCANNED REPORT) EGFR-OUTSIDE LAB 132.0 NO RANGE ML/MIN/1.7 3M2 OUTSIDE LAB (SEE SCANNED REPORT) POTASSIUM-OUTSIDE LAB 3.9 3.5 - 5.1 MMOL/L OUTSIDE LAB (SEE SCANNED REPORT) GLUCOSE-OUTSIDE LAB 75 70 - 99 MG/DL OUTSIDE LAB (SEE SCANNED REPORT) HOURS FASTING OUTSID E LAB (SEE SCANNED REPORT) TRIGLYCERIDES-OUT SIDE LAB 47 0 - 150 MG/DL OUTSIDE LAB (SEE SCANNED REPORT) CHOLESTEROL-OUTSI DE LAB OUTSIDE LAB (SEE SCANNED REPORT) HDL-OUTSIDE LAB OUTS DANIEL LAB (SEE SCANNED REPORT) CHOL/HDL RATIO-OUTSIDE LAB OUTSIDE LA B (SEE SCANNED REPORT) LDL (CALCULATED)-OUTS DANIEL LAB OUTSIDE LAB (SEE SCANNED REPORT) LDL (DIRECT MEASURE)-OUTSIDE LAB OUTSIDE LAB (SEE SCANNED REPORT) HEMOGLOBIN, Z6K-BMPBYSV LAB OUTSIDE LAB (SEE SCANNED REPORT) PHOSPHORUS-OUTSID E LAB 4.2 2.5 - 4.9 MG/DL OUTSIDE LAB (SEE SCANNED REPORT) PTH-OUTSIDE LAB OUTS DANIEL LAB (SEE SCANNED REPORT) MICROALBUMIN RATIO-OUTSIDE LAB OUTSIDE LA B (SEE SCANNED REPORT) PROTEIN, UA-OUTSIDE LAB OUTSIDE LAB (SEE SCANNED REPORT) HEMOGLOBIN-OUTSID E LAB 12.5 12.0 - 16.0 G/DL OUTSIDE LAB (SEE SCANNED REPORT) 05/07/2023 Priyanka Pitts MD LABORATORY OUTSIDE LAB (SEE [...] the patient have Health Care Power of Insecticide Maker? No Code Status History Code Status Date Activated Date Inactivated Comments Full Code 08/29/2020 12:26 PM 09/06/2020 7:08 PM Question Answer Comments Discussion of Advance Direct albert occurred with: Not Discussed Does the patient have a Living Will? No Does the patient have Health Care Power of Insecticide Maker? No Care Teams Corn Cutter Operator Relationship Specialty Start Date End Date Meek Lopez MD [address] [place] [address] PCP - General Family Medicine 03/17/20 documented as of this encounter
--- OUTSIDE RECORDS SUMMARY | 2023-07-04 03:47 | External Medical Summary | Summary of Care ---
Author Name Unknown Organization [facility] Address [address] [place] [address] Phone [phone] Care Team Providers Care Mall Manager Name Role Phone Meek Lopez MD Primary Care Provider +1- [phone] Reason for Visit * Reason Comments Medication Administration Vitamin B12 Encounter Details Date Type Department Care Team Description 04/11/2023 Immunization/In jection Hematology/Oncology Treatment, [place] [address] [place] [address] Nurse, Med [address] [place] [address] Other vitamin B12 deficiency anemias* Allergies Active Allergy Reactions Severity Noted Date [...] as of this encounter (statuses as of 04/11/2023) Medications Medication Sig Dispensed Refills Start Date [...] 1 Each 11 05/29/2022 Active Dexcom G6 After School Program Teacher DeviceIndications:Hy poglycemia Use as directed. 1 Each 0 08/02/2022 Active Omeprazole 20 MG Oral Capsule Delayed Release (PriLOSEC) take 1 capsule by mouth IN THE MORNING and take 1 capsule by mouth BEFORE BEDTIME 60 Capsule 3 08/22/2022 Active Cholecalciferol 1.25 MG (19220 UT) Oral CapsuleIndications:V itamin D deficiency Take [...] as of this encounter (statuses as of 04/11/2023) Active Problems Problem Noted Date Other vitamin [...] as of this encounter (statuses as of 04/11/2023) Resolved Problems Problem Noted Date Resolved Date H. pylori infection 04/15/2012 07/16/2020 documented as of this encounter (statuses as of 04/11/2023) Immunizations Name Administration Dates Next Due COVID-19 [...] Progress Notes * Enedelia Solo LPN - 04/11/2023 2:18 PM EDT Administered Vitamin B12 1000mcg to left deltoid IM, patient tolerated well, patient left in stablecondition. documented in this encounter Plan of Treatment Upcoming Encounters Date Type Specialty Care Team Description 05/09/2023 Immunization/Injection Hematology Oncolog y Nurse, Med 4 [address] [facility] [place] [address] 05/26/2023 Office Visit Family Medicine Meek Lopez MD [address] [place] [address] 05/27/2023 Office Visit Rheumatology Jean Rodríguez MD [address] [facility] [place] [address] 06/13/2023 Telemedicine Gastroenterology Priyanka Pitts MD [address] [facility] [address] 07/22/2023 Laboratory Laboratory Melania Schuster [address] [facility] [place] [address] 07/29/2023 Office Visit Hematology Oncology Lupe Arboleda CRNP [address] [facility] [place] [address] 09/25/2023 Appointment Radiology Health Maintenance Due [...] this encounter Medical Devices Implanted Type Area Manufacturing Sales Representative Device Identifier Shelf Expiration Date Model / Serial / Lot Tube Feed 16f 45 - [id number] Implanted:Qty : 1 on 10/16/2020 at [facility] Left: Abdomen [facility] [id number] 08/09/2021249-16 [id number] documented as of this encounter Visit Diagnoses Diagnosis Other vitamin B12 deficiency anemias- Primary documented in this encounter Administered Medications Inactive Administered Medications - up to 3 most recent administrations Medication Order MAR Action Action Date Dose Rate Site vitamin b-12 (Cyanocobalamin) inj 1,000 mcg 1,000 mcg, Intramuscular, ONCE, On Fri04/11/23 at 1500, For 1 dose Given 04/11/2023 2:13 PM EDT 1,000 mcg Deltoid Left Upper documented in [...] the patient have Health Care Power of Regional Agronomist? No Code Status History Code Status Date Activated Date Inactivated Comments Full Code 08/29/2020 12:26 PM 09/06/2020 7:08 PM Question Answer Comments Discussion of Advance Direct albert occurred with: Not Discussed Does the patient have a Living Will? No Does the patient have Health Care Power of Regional Agronomist? No Care Teams Mall Manager Relationship Specialty Start Date End Date Meek Lopez MD [address] [place] [address] PCP - General Family Medicine 03/17/20 documented as of this encounter
--- OUTSIDE RECORDS SUMMARY | 2023-07-04 03:47 | External Medical Summary | Summary of Care ---
Author Name Unknown Organization [facility] Address [address] [place] [address] Phone [phone] Care Team Providers Care Distribution Tech Name Role Phone Meek Lopez MD Primary Care Provider +1- [phone] Reason for Visit * Reason Comments Medication Management Encounter Details Date Type Department Care Team Description 04/18/2023 Pharmacy [facility] [address] [place] [address] ManageKiana Pharmacist Tpn [address] [place] [address] Severe protein-calorie malnutrition (HCC)* Allergies Active Allergy Reactions Severity Noted Date [...] as of this encounter (statuses as of 04/18/2023) Medications Medication Sig Dispensed Refills Start Date [...] 1 Each 11 05/29/2022 Active Dexcom G6 Energy Efficient Site Manager DeviceIndications:Hy poglycemia Use as directed. 1 Each 0 08/02/2022 Active Omeprazole 20 MG Oral Capsule Delayed Release (PriLOSEC) take 1 capsule by mouth IN THE MORNING and take 1 capsule by mouth BEFORE BEDTIME 60 Capsule 3 08/22/2022 Active Cholecalciferol 1.25 MG (28928 UT) Oral CapsuleIndications:V itamin D deficiency Take [...] as of this encounter (statuses as of 04/18/2023) Active Problems Problem Noted Date Other vitamin [...] as of this encounter (statuses as of 04/18/2023) Resolved Problems Problem Noted Date Resolved Date H. pylori infection 04/15/2012 07/16/2020 documented as of this encounter (statuses as of 04/18/2023) Immunizations Name Administration Dates Next Due COVID-19 [...] as of this encounter Progress Notes * Govind Hope, [facility] - 04/18/2023 3:25 PM EDT [facility] Adult TPN Documentation Patient [...] Folic Acid 2 mg - add daily Reviewed labs from 04/16/23 (Sanket Block, carolwarded to GI/Nutrition); continue same TPN. Deliver 04/18/23 to cover through 04/25/23. Next labs 04/30/23. Nutrition appointment 06/18/23. Govind Hope MS, [facility], BCNSP 04/18/2023 3:27 PM documented in this encounter Plan of Treatment Upcoming Encounters Date Type Specialty Care Team Description 05/09/2023 Immunization/Injection Hematology Oncolog y Nurse, Med 4 [address] [place] [address] 05/26/2023 Office Visit Family Medicine Meek Lopez MD [address] [place] [address] 05/27/2023 Office Visit Rheumatology Jean Rodríguez MD [address] [place] [address] 06/13/2023 [facility]medicine [facility] [address] [place] [address] 07/22/2023 Laboratory Laboratory [facility], Lab [place] [address] [place] [address] 07/29/2023 Office Visit Hematology Oncology Lupe Arboleda CRNP [address] [place] [address] 09/25/2023 Appointment Radiology Scheduled Orders Name Type Priority Associated Diagnoses Orde r Schedule BASIC METABOLIC PANEL Lab Routine Severe protein-calorie malnutrition (HCC) Expected: 04/30/2023 (Approximate), Expires: 04/18/2024 MAGNESIUM Lab Routine Severe protein-calorie malnutrition (HCC) Expected: 04/30/2023 (Approximate), Expires: 04/18/2024 PHOSPHORUS Lab Routine Severe protein-calorie malnutrition (HCC) Expected: 04/30/2023 (Approximate), Expires: 04/18/2024 CALCIUM, IONIZED Lab Routine Severe protein-calorie malnutrition (HCC) Expected: 04/30/2023 (Approximate), Expires: 04/18/2024 Health Maintenance Due Date Last Done Comments [...] this encounter Medical Devices Implanted Type Area Operator Device Identifier Shelf Expiration Date Model / Serial / Lot Tube Feed 16f 45 - [id number] Implanted:Qty : 1 on 10/16/2020 at [facility] Left: Abdomen [facility] [id number] 08/09/2021 0250-16 / / [id number] documented as of this encounter Visit Diagnoses Diagnosis Severe protein-calorie malnutrition (HCC)- Primary Other severe protein-calorie malnutrition documented in this [...] the patient have Health Care Power of Software Tools Engineer? No Code Status History Code Status Date Activated Date Inactivated Comments Full Code 08/29/2020 12:26 PM 09/06/2020 7:08 PM Question Answer Comments Discussion of Advance Direct albert occurred with: Not Discussed Does the patient have a Living Will? No Does the patient have Health Care Power of Software Tools Engineer? No Care Teams Distribution Tech Relationship Specialty Start Date End Date Meek Lopez MD [address] [place], [place] [id number] PCP - General Family Medicine 03/17/20 documented as of this encounter
--- OUTSIDE RECORDS SUMMARY | 2023-07-04 03:47 | External Medical Summary | Summary of Care ---
Author Name Unknown Organization [facility] Address [address] [place] [address] Phone [phone] Care Team Providers Care Software Build Engineer Name Role Phone Meek Lopez MD Primary Care Provider +1- [phone] Reason for Visit * Reason Comments Medication Management Encounter Details Date Type Department Care Team Description 04/25/[address] [facility] [address] [place] [address] ManageKiana Pharmacist Tpn [address] [place] [address] Allergies Active Allergy Reactions Severity [...] as of this encounter (statuses as of 04/25/2023) Medications Medication Sig Dispensed Refills Start Date [...] 1 Each 11 05/29/2022 Active Dexcom G6 Oracle Technical Developer DeviceIndications:Hy poglycemia Use as directed. 1 Each 0 08/02/2022 Active Omeprazole 20 MG Oral Capsule Delayed Release (PriLOSEC) take 1 capsule by mouth IN THE MORNING and take 1 capsule by mouth BEFORE BEDTIME 60 Capsule 3 08/22/2022 Active Cholecalciferol 1.25 MG (85357 UT) Oral CapsuleIndications:V itamin D deficiency Take [...] as of this encounter (statuses as of 04/25/2023) Active Problems Problem Noted Date Other vitamin [...] as of this encounter (statuses as of 04/25/2023) Resolved Problems Problem Noted Date Resolved Date H. pylori infection 04/15/2012 07/16/2020 documented as of this encounter (statuses as of 04/25/2023) Immunizations Name Administration Dates Next Due COVID-19 [...] this encounter Progress Notes * Nikki Pena, [facility] - 04/25/2023 10:40 AM EDT [facility] Adult TPN Documentation [...] - add daily Most recent labs from 04/16/23 ([place], fowarded to GI/Nutrition); TPN changes made due to NaPhos shortage: NaCl 15 mEq added, removed Na Phos, Decreased KCL to 73 mEq, Add K Phos 11 mM. Next labs 04/30/23. Nutrition appointment 06/18/23. Nikki Pena RPh 04/25/2023 10:40 AM documented in this encounter Plan of Treatment Upcoming Encounters Date Type Specialty Care Team Description 05/09/2023 Immunization/Injection Hematology Oncolog y Nurse, Med 4 [address] [place] [address] 05/26/2023 Office Visit Family Medicine Meek Lopez MD [address] [place] [address] 05/27/2023 Office Visit Rheumatology Jean Rodríguez MD [address] [place] [address] 06/13/2023 [facility]med[facility] [address] [place] [address] 07/22/2023 Laboratory Laboratory [facility], Lab [place] [address] [place] [address] 07/29/2023 Office Visit Hematology Oncology Lupe Arboleda CRNP [address] [place] [address] 09/25/2023 Appointment Radiology Health Maintenance Due [...] this encounter Medical Devices Implanted Type Area Escrow Secretary Device Identifier Shelf Expiration Date Model / Serial / Lot Tube Feed 16f 45 - [id number] Implanted:Qty : 1 on 10/16/2020 at [facility] Left: Abdomen [facility] [id number] 08/09/2021 0250-16 / [id number] documented as of this encounter Advance Directives [...] the patient have Health Care Power of Manpower Development Advisor? No Code Status History Code Status Date Activated Date Inactivated Comments Full Code 08/29/2020 12:26 PM 09/06/2020 7:08 PM Question Answer Comments Discussion of Advance Direct albert occurred with: Not Discussed Does the patient have a Living Will? No Does the patient have Health Care Power of Manpower Development Advisor? No Care Teams Software Build Engineer Relationship Specialty Start Date End Date Meek Lopez MD [address] [place] [address] PCP - General Family Medicine 03/17/20 documented as of this encounter
--- OUTSIDE RECORDS SUMMARY | 2023-07-04 03:48 | External Medical Summary | Summary of Care ---
Author Name Unknown Organization [facility] Address [address] [place] [address] Phone [phone] Care Team Providers Care Broom Builder Name Role Phone Meek Riddle MD Primary Care Provider +1- [phone] Reason for Referral * Evaluate & Treat - Unlimited Visits (Within 30 days (routine)) - Pending Review Specialty Diagnoses / Procedures Referred By Gayle benedict Referred To Contact Gastroenterology Diagnoses Gastrointestinal dysmotility Severe protein-calorie malnutrition (HCC) Abdominal pain, generalized Meek Riddle MD [address] [place] [address] Referral ID Status Reason Start Date Expiration Date Visits Requested Visits Authorized [id number] Pending Review Specialty Services Required 03/25/[phone] Question Answer Referral Priority Within 30 days (routine) For what condition is the patient being referred? All Gastro Conditions Encounter Details Date Type Department Care Team Description 03/24/2023 Telephone [facility] [address] [place] [address] Meek Riddle MD [address] [place] [address] Allergies Active Allergy Reactions Severity Noted Date [...] as of this encounter (statuses as of 03/26/2023) Medications Medication Sig Dispensed Refills Start Date [...] Each 11 05/29/2022 Active Dexcom G6 Manager Trainee DeviceIndications:Hy poglycemia Use as directed. 1 Each 0 08/02/2022 Active Omeprazole 20 MG Oral Capsule Delayed Release (PriLOSEC) take 1 capsule by mouth IN THE MORNING and take 1 capsule by mouth BEFORE BEDTIME 60 Capsule 3 08/22/2022 Active Cholecalciferol 1.25 MG (12830 UT) Oral CapsuleIndications:V itamin D deficiency Take [...] as of this encounter (statuses as of 03/26/2023) Active Problems Problem Noted Date Other vitamin [...] as of this encounter (statuses as of 03/26/2023) Resolved Problems Problem Noted Date Resolved Date H. pylori infection 04/15/2012 07/16/2020 documented as of this encounter (statuses as of 03/26/2023) Immunizations Name Administration Dates Next Due COVID-19 [...] encounter Miscellaneous Notes * Telephone Encounter - NORBERTO Cárdenas - 03/26/2023 8:22 AM EDT Faxed OV Note, Demos, Referral and Med List/Problem List to [facility] at [phone]. They will call patient to schedule. Called patient twice to let them know they should be getting a call from [facility] and therewas no answer and unable to LMOM. 03/26/2023 8:23AM * Addendum Note - Meek Riddle MD - 03/25/2023 5:57 PM EDTAddended by: MEEK RIDDLE on: 03/25/2023 05:57 PM Modules accepted: Orders * Telephone Encounter - Meek Riddle MD - 03/25/2023 5:55 PM EDT We had tried to refer her directly to the GI motility department at the [facility]. They havereviewed her case and did not agree to see her. The plan now is to see if the routine GI department at [facility] will see her for evaluation. If they see her and feel that she is appropriate for the motility clinic, perhaps they can make ithappen. New referral entered. Please assist pt with appt at [facility] GI department. * Telephone Encounter - LEXIS Barrera - 03/24/2023 11:49 AM EDT Please advise as below. * Telephone Encounter - Nikki Darnell - 03/24/2023 8:59 AM EDT 03/24/23 Pts mother was in for an appt and asked about referral for daughter to [facility] in [place]? Could pt be called regarding this referral? The first referral was denied, stating it was the wrong department? Pt can be reached at [phone]. documented in this encounter Plan of Treatment Upcoming Encounters Date Type Specialty Care Team Description 03/28/2023 Appointment Radiology 04/11/2023 Immunization/Injection Hematology Oncolog y Nurse, Med [address] [place] [address] 05/26/2023 Office Visit Family Medicine Meek Riddle MD [address] [place] [address] 05/27/2023 Office Visit Rheumatology Jean Rodríguez MD [address] [place] [address] 06/13/2023 [facility] [address] [place] [address] 07/22/2023 Laboratory Laboratory [facility] [address] [address] [place] [address] 07/29/2023 Office Visit Hematology Oncology Lupe Arboleda CRNP [address] [place], [place] [address] Scheduled Referrals Name Type Priority Associated Diagnoses Orde r Schedule GASTROENTEROLOGY REFERRAL OP Referral Within 30 days (routine) Gastrointestinal dysmotility Severe protein-calorie malnutrition (HCC) Abdominal pain, generalized Ordered: 03/25/2023 Health Maintenance Due Date Last Done Comments [...] this encounter Medical Devices Implanted Type Area Filling Hauler Device Identifier Shelf Expiration Date Model / Serial / Lot Tube Feed 16f 45 - [id number] Implanted:Qty : 1 on 10/16/2020 at [facility] Left: Abdomen [facility] [id number] 08/09/2021 0250-16 / [id number] documented as of this encounter Visit Diagnoses Diagnosis Gastrointestinal dysmotility- Primary Unspecified functional disorder of stomach Severe protein-calorie malnutrition (HCC) Other severe protein-calorie malnutrition Abdominal pain, generalized documented in this encounter Advance Directives Latest [...] the patient have Health Care Power of Sport Shoe Spike Assembler? No Code Status History Code Status Date Activated Date Inactivated Comments Full Code 08/29/2020 12:26 PM 09/06/2020 7:08 PM Question Answer Comments Discussion of Advance Direct albert occurred with: Not Discussed Does the patient have a Living Will? No Does the patient have Health Care Power of Sport Shoe Spike Assembler? No Care Teams Broom Builder Relationship Specialty Start Date End Date Meek Riddle MD [address] [place] [address] PCP - General Family Medicine 03/17/20 documented as of this encounter
--- OUTSIDE RECORDS SUMMARY | 2023-07-04 03:48 | External Medical Summary | Summary of Care ---
Author Name Unknown Organization [facility] Address [address] [place] [address] Phone [phone] Care Team Providers Care Telecommunications Officer Name Role Phone Meek Lopez MD Primary Care Provider +1- [phone] Reason for Referral * Precert (Within 10 days (routine)) - Closed Specialty Diagnoses / Procedures Referred By Capoac t Referred To Contact Radiology Diagnoses 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) Procedures IR GASTROINTESTINAL OSTOMY [place] REPLACEMENT GASTRO-JEJUNOSTOMY TUBE PERCUTANEOUS Doyle Cano MD [address] [place] [address] Referral ID Status Reason Start Date Expiration Date V isits Requested Visits Authorized Closed Precert 03/19/2022 03/02/2025 4 4 Reason for Visit * Precert (Within 10 days (routine)) - Closed Specialty Diagnoses / Procedures Referred By Gayle benedict Referred To Contact Radiology Diagnoses 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) Procedures IR GASTROINTESTINAL OSTOMY [place] REPLACEMENT GASTRO-JEJUNOSTOMY TUBE PERCUTANEOUS Doyle Cano MD [address] [place] [address] Referral ID Status Reason Start Date Expiration Date V isits Requested Visits Authorized Closed Precert 03/19/2022 03/02/2025 4 4 Encounter Details Date Type Department Care Team Description 03/28/2023 Hospital Encounter Radiology Waiting Room [facility], [facility] 1st Floor [address] [place] [address] Lobito Navarro MD [address] [place] [address] Arrived Allergies Active Allergy Reactions Severity Noted Date [...] as of this encounter (statuses as of 03/29/2023) Medications Medication Sig Dispensed Refills Start Date [...] 1 Each 11 05/29/2022 Active Dexcom G6 Customer Service Clerk DeviceIndications:Hy poglycemia Use as directed. 1 Each 0 08/02/2022 Active Omeprazole 20 MG Oral Capsule Delayed Release (PriLOSEC) take 1 capsule by mouth IN THE MORNING and take 1 capsule by mouth BEFORE BEDTIME 60 Capsule 3 08/22/2022 Active Cholecalciferol 1.25 MG (71139 UT) Oral CapsuleIndications:V itamin D deficiency Take [...] as of this encounter (statuses as of 03/29/2023) Active Problems Problem Noted Date Other vitamin [...] as of this encounter (statuses as of 03/29/2023) Resolved Problems Problem Noted Date Resolved Date H. pylori infection 04/15/2012 07/16/2020 documented as of this encounter (statuses as of 03/29/2023) Immunizations Name Administration Dates Next Due COVID-19 [...] Sign Reading Time Taken Comments Blood Pressure 114/74 03/28/2023 1:10 PM EDT Pulse 106 03/28/2023 1:10 PM EDT Temperature 36.6 C (97.9 F) 03/28/2023 11:35 AM E DT Respiratory Rate 12 03/28/2023 1:10 PM EDT Oxygen Saturation 100% 03/28/2023 1:10 PM EDT Inhaled Oxygen Concentration - - Weight - - Height - - Body Mass Index - - documented in this encounter Functional Status Functional [...] No 10/16/2020 documented as of this encounter Discharge Instructions * Discharge Instr - AVS* Dickson Shaffer MD - 03/28/2023 1:20 PM EDT Discharge Date: 03/28/2023 Provider: Dr. Dickson Shaffer If you are experiencing any problems related to your procedure, please contact Interventional Radiology at [phone] during normal business hours: Friday - Friday, 8:00 am - 4:00 pm. If a problem occurs outside of normal business hours, please call the hospital traveling operator at [phone] and ask for the Interventional Radiologist nurse practitioner adult. Contact scheduling for Interventional Radiology at [phone] during normal business hours: Friday - Friday, 8:00 am - 4:00 pm. The information below provides you with the instructions and the list of medications you need to betaking following discharge from the hospital. If you have any questions, please ask before leaving.Please carry this letter with you when you see your doctor in the clinic. If you have questions, you can reach us at the numbers above. SPECIAL INSTRUCTIONS Gastro-Jejunostomy Catheter exchange You have been discharged with a feeding tube. The feeding tube was inserted through your abdominal wall and into your stomach to provide you with food, fluids, and medication. Your tube may move in and out slightly. If the tube comes out all the way, don't put it back in. Call your doctor. You needto keep the skin around the feeding tube dry and clean. This helps prevent soreness and infection. The mouth also needs to be cleansed, even though food is not taken through. Home Care If you experience pain or discomfort at the site you may take acetaminophen (Tylenol) or your preferred pain medicine as directed. Avoid strenuous activity for 24 to 48 hours after the procedure. Do not lift anything heavier than 10 pounds for 3 days after the procedure. Gradually increase your activity after 24 to 48 hours after the procedure. When showering, please cover your site with plastic wrap to avoid getting it wet. Please DO NOT take a bath, soak in a hot tub, or swim. The three round anchors will automatically fall off within 14 days. If they do not completely fall off in 14 days, please contact Interventional Radiology. Cleaning the Skin Gently wash the skin around the feeding tube daily. Please follow these steps: Wash your hands. Wet a soft cloth or gauze with warm, soapy water. Gently wipe the skin around the feeding tube. Also wipe the bolster and the base of the feeding tube. Rinse well with clear, warm water. Pat dry with a soft cloth. Cleaning Under the Bolster When you wash the skin, clean and check under the bolster. Please follow these steps: Gently lift the bolster just enough to get a cotton swab under it. Be careful not to pull on the feeding tube. Check for redness, swelling, bleeding, or leakage around the opening. Dip a cotton swab in warm water and gently clean under the bolster. Pat the skin dry. Apply a protective skin barrier or antibacterial ointment if your health care provider tells you to. Gently push the bolster back against the skin. Wash your hands. Medications and Flushing the Tube Flush the tube with 30 mL warm water daily if not currently being used for medications or feeds. Your tube should be flushed before and after every use. Take medications in the following order (each mixed in about 15 mL warm water) Liquid medicines first Medicines that need to be dissolved second Thick medicines last Take each medicine by itself. Never mix medicines together in the syringe. Flush the tube with 5 mL or more warm water between all medications. Flush the tube with 30 mL warm water after all medications have been given. Some medicines may not be mixed with feeding formula. Ask your doctor how long you should wait to start feeding after taking medications. Keep your tube clamped between feedings. Additional Resource [email or web address] Follow Up An appointment will be made for you to have your tube changed approximately every 3-6 months for routine care. If you do not hear from a photographic reproduction technician, call Interventional Radiology at [phone] during normal business hours: Friday through Friday 8 am to 4:30 pm to schedule an appointment. When to Call Interventional Radiology Call Interventional Radiology right away if you have any of the following: If your tube becomes dislodged, try to replace the tube and tape it to hold it in place. This will keep the tract open until we can exchange the tube. If you cannot place the tube back in, that is okay. This is not a medical emergency and you do not need to go to the ER. Please either call the IR Provider on-call or call us during normal business hours at the numbers provided above. This is something that should be addressed within 24 hours, particularly if you are dependent on your tube for medication administration. Fever above 100 degrees Fahrenheit Increased bleeding, redness, swelling, warmth, or discharge at the incision site. Constant or increasing pain, numbness, coldness, or tingling around the incision area. The tube feels loose, comes out or the size of the opening where the tube enters the skin increases. Red, rough tissue develops around the tube site. You see blood around the tube, in stool, or in contents of the stomach. The tube becomes clogged or blocked and you cannot clear it. You start to cough, choke, or vomit while feeding. You have a bloated or rigid abdomen (belly feels hard when gently pressed.) You have diarrhea. If at any time you experience any of the following or feel you are having a medical emergency, [id number] for emergency assistance. Chest Pain Sudden, severe shortness of breath Rapid heart rate Sudden onset of weakness Coughing up blood See your referring physician for follow-up appointment. Do not smoke or use tobacco products in any way! If you feel suicidal or homicidal, please call the crisis hotline at 1-684-714-OGLG (1552) Return to work or school: You may return to school or work 12 hours after the procedure, unless otherwise instructed by the physician. documented in this encounter Progress Notes * Humera Martinez RN - 03/28/2023 11:38 AM EDT Patient or the Patients Legally Authorized Equities Analyst has been advised that (1) the Patient meets criteria for testing and (2) the administration of anesthesia, radiation or other imaging agents may have a harmful impact to an unborn child. The Patient or Patients Representativewere offered the opportunity to ask questions as to necessity of such testing and potential outcomes. Consent for testing has been declined. documented in this encounter Nursing Notes * Vee Workman RN - 03/28/2023 1:21 PM EDT DISCHARGE - POST INTERVENTIONAL RADIOLOGY PROCEDURE Patient meets discharge criteria for Interventional Radiology. Vital signs stable. GJ tube site clean, dry, and intact. Patient awake and oriented to pre procedure baseline. Discharge instructions given, no questions at this time. Patient tolerating liquids, with no nausea/vomiting. All belongings sent with patient. Discharged to home. Vital Signs: BP: 114/74 (03/28/23 1310) Temp: 36.6 C (97.9 F) (03/28/23 1135) Pulse: 106 (03/28/23 1310) Resp: 12 (03/28/23 1310) SpO2: 100 % (03/28/23 1310) Neurological: [place] Coma Scale Eyes Open: Spontaneous (03/28/23 113) Best Verbal Response: Verbally appropriate for age (03/28/23 113) Best Motor Response: Obeys commands appropriate for age (03/28/23 113) Coma Score: 15 (03/28/23 113) Activity: Four Extremities LOC: Fully Awake or Pre-Anesthetic Level of Consciousness BP: Less than (+/-) 20% Resp: Deep Breathe and Cough Freely (03/28 1319) Respiratory: Pain Assessment Flowsheet Row Most Recent Value Pain Assessment Scale [facility] Scale 0-10 Pain Score 0 (no pain) * Vee Workman RN - 03/28/2023 1:04 PM EDT supervisor cab note Name: Priyanka Mccarthy Date: 03/28/2023 T Procedure:Gastrojejunostomy Tube Exchange Patient ID band checked using two identifiers. Patient placed on procedure table, supine position, with comfort measures intact and safety strap in place. Hemodynamic monitoring placed and initiated.Patient denies any current complaints at current time. RT staff prepares and preps for procedure. Procedure by physician. 1:08 PM Timeout performed by Dr. Dickson Shaffer . Correct catheter/tube size verbalized and verified during timeout. 1:09 PM Procedure started by Dr. Dickson Shaffer , and scrubbed RT Eligio. Images obtained. 1:10 PM Guidewire inserted. Images obtained. Feeding tube removed. 1:11 PM New tube inserted. AMT G-JET. 16 Fr x 3.0 cm x 45 cm. Lot [id number]. Exp: 07-14-2025. Balloon inflated with 4 mL sterile water. 1:12 PM Area cleaned. Patient tolerated procedure well without complications. All wires, catheters, sheaths and other devices have been inspected prior to the procedure for damage. This has been confirmed by the scrubbed RT and the operating physician. All items not intended to remain in the patient have been inspected, accounted for and have been removed from the patient atthe end of the procedure. This has been confirmed by the scrubbed RT and the operating physician. Pt did not receive conscious sedation for their procedure. Total medications given N/a Please see doctor's operative note for additional details. documented in this encounter Plan of Treatment Upcoming Encounters Date Type Specialty Care Team Description 04/11/2023 Immunization/Injection Hematology Oncolog y Nurse, Med [address] [place] [address] 05/26/2023 Office Visit Family Medicine Meek Lopez MD [address] [place] [facility] [facility] [place] [address] 05/27/2023 Office Visit Rheumatology Jean Rodríguez MD [address] [facility] [place] [address] 06/13/2023 Telemedicine Gastroenterology Priyanka Pitts MD [address] [place] [address] 07/22/2023 Laboratory Laboratory [place] [facility] [address] [facility] [place] [address] 07/29/2023 Office Visit Hematology Oncology Lupe Arobleda CRNP [address] [facility] [place] [address] Pending Results Name Type Priority Associated Diagnoses Date/Time IR GASTROINTESTINAL OSTOMY Medical Imaging Routine 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) 03/28/2023 1:14 PM EDT Scheduled Orders Name Type Priority Associated Diagnoses Order Schedule IR GASTROINTESTINAL OSTOMY Medical Imaging Routine 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) 1 Occurrences starting 03/28/2023 until 03/28/2023 Health Maintenance Due Date Last Done Comments [...] this encounter Medical Devices Implanted Type Area Tin Plater Device Identifier Shelf Expiration Date Model / Serial / Lot Tube Feed 16f 45 - [id number] Implanted:Qty : 1 on 10/16/2020 at [facility] Left: Abdomen [facility] [id number] 08/09/2021 0250-16 / / [id number] documented as of this encounter Visit Diagnoses Diagnosis 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) Gastrostomy status documented in this encounter Administered Medications Inactive Administered Medications - up to 3 most recent administrations Medication Order MAR Action Action Date Dose Rate Site Ioversol (Optiray 320) inj 50 mL 50 mL, Intravenous, ONCE, On Fri03/28/23 at 1400, For 1 dose Given 03/28/2023 2:00 PM EDT 10 mL documented in this encounter Active and Recently Administered Medications Times are shown in EDT. Scheduled Medication Order 03/26/2023 03/27/2023 03/28/2023 Ioversol (Optiray 320) inj 50 mL (COMPLETED) 50 mL, Intravenous, ONCE, On Fri03/28/23 at 1400, For 1 dose 1400 (Given - Provid er: Reagan Guillermo, RT (R)) documented in this encounter Advance Directives Latest [...] the patient have Health Care Power of [facility]? No Code Status History Code Status Date Activated Date Inactivated Comments Full Code 08/29/2020 12:26 PM 09/06/2020 7:08 PM Question Answer Comments Discussion of Advance Direct albert occurred with: Not Discussed Does the patient have a Living Will? No Does the patient have Health Care Power of Chief [facility]? No Care Teams Telecommunications Officer Relationship Specialty Start Date End Date Meek Lopez MD [address] [place] [address] PCP - General Family Medicine 03/17/20 documented as of this encounter
--- OUTSIDE RECORDS SUMMARY | 2023-07-04 03:48 | External Medical Summary | Summary of Care ---
Author Name Unknown Organization [facility] Address [address] [place] [address] Phone [phone] Care Team Providers Care Senior Sales Operations Manager Name Role Phone Meek Lopez MD Primary Care Provider +1- [phone] Reason for Visit * Reason Onset Date Comments Order Request 03/26/2023 Encounter Details Date Type Department Care Team Description 03/26/2023 Telephone Nutrition & Weight Management, [place] [address] [place] [id number] Priyanka Pitts MD [address] [place] [address] Order Request Allergies Active Allergy Reactions Severity Noted Date [...] 1 Each 11 05/29/2022 Active Dexcom G6 Dividend Deposit Entry Clerk DeviceIndications:Hy poglycemia Use as directed. 1 Each 0 08/02/2022 Active Omeprazole 20 MG Oral Capsule Delayed Release (PriLOSEC) take 1 capsule by mouth IN THE MORNING and take 1 capsule by mouth BEFORE BEDTIME 60 Capsule 3 08/22/2022 Active Cholecalciferol 1.25 MG (45858 UT) Oral CapsuleIndications:V itamin D deficiency Take [...] encounter Miscellaneous Notes * Telephone Encounter - Priyanka Pitts MD - 03/26/2023 2:35 PM EDT Ordered weekly TPN labs. Consider reducing frequency to every other week documented in this encounter Plan of Treatment Upcoming Encounters Date Type Specialty Care Team Description 03/28/2023 Hospital Encounter Radiology 04/11/2023 Immunization/Injection Hematology Oncolog y Nurse, Med [address] [facility] [place], [place] [address] 05/26/2023 Office Visit Family Medicine Meek Lopez MD [address] [place] [address] 05/27/2023 Office Visit Rheumatology Jean Rodríguez MD [address] [place] [address] 06/13/2023 Telemedicine Gastroenterology RestemaPriyanka waggoner MD [address] [place] [address] 07/22/2023 Laboratory Laboratory Melania Schuster Tiffany [address] [facility] [place] [address] 07/29/2023 Office Visit Hematology Oncology Lupe Arboleda CRNP [address] [facility] [place] [address] Scheduled Orders Name Type Priority Associated Diagnoses Orde r Schedule BASIC METABOLIC PANEL Lab Routine On total parenteral nutrition (TPN) Every 2 Weeks for 100 Occurrences starting 03/26/2023 until 03/12/2024 MAGNESIUM Lab Routine On total parenteral nutrition (TPN) Every 2 Weeks for 100 Occurrences starting 03/26/2023 until 03/12/2024 PHOSPHORUS Lab Routine On total parenteral nutrition (TPN) Every 2 Weeks for 100 Occurrences starting 03/26/2023 until 03/12/2024 Health Maintenance Due Date Last Done Comments [...] this encounter Medical Devices Implanted Type Area Spot Billing Clerk Device Identifier Shelf Expiration Date Model / Serial / Lot Tube Feed 16f 45 - [id number] Implanted:Qty : 1 on 10/16/2020 at [facility] Left: Abdomen [facility] [id number] 08/09/2021249-16 / [id number] documented as of this encounter Visit Diagnoses [...] the patient have Health Care Power of Pig Lead Melter Helper? No Code Status History Code Status Date Activated Date Inactivated Comments Full Code 08/29/2020 12:26 PM 09/06/2020 7:08 PM Question Answer Comments Discussion of Advance Direct albert occurred with: Not Discussed Does the patient have a Living Will? No Does the patient have Health Care Power of Pig Lead Melter Helper? No Care Teams Senior Sales Operations Manager Relationship Specialty Start Date End Date Meek Lopez MD [address], [place] [id number] PCP - General Family Medicine 03/17/20 documented as of this encounter
--- OUTSIDE RECORDS SUMMARY | 2023-07-04 03:48 | External Medical Summary | Summary of Care ---
Author Name Unknown Organization [facility] Address [address] [place] [address] Phone [phone] Care Team Providers Care Diversity Specialist Name Role Phone Meek Lopez MD Primary Care Provider +1- [phone] Reason for Visit * Reason Comments Medication Management Encounter Details Date Type Department Care Team Description 03/27/2023 Pharmacy [facility] [address] [place] [address] ManageKiana Pharmacist Tpn [address] [place] [address] Allergies Active Allergy Reactions Severity [...] as of this encounter (statuses as of 03/27/2023) Medications Medication Sig Dispensed Refills Start Date [...] 1 Each 11 05/29/2022 Active Dexcom G6 Lubrication Servicer DeviceIndications:Hy poglycemia Use as directed. 1 Each 0 08/02/2022 Active Omeprazole 20 MG Oral Capsule Delayed Release (PriLOSEC) take 1 capsule by mouth IN THE MORNING and take 1 capsule by mouth BEFORE BEDTIME 60 Capsule 3 08/22/2022 Active Cholecalciferol 1.25 MG (21296 UT) Oral CapsuleIndications:V itamin D deficiency Take [...] as of this encounter (statuses as of 03/27/2023) Active Problems Problem Noted Date Other vitamin [...] as of this encounter (statuses as of 03/27/2023) Resolved Problems Problem Noted Date Resolved Date H. pylori infection 04/15/2012 07/16/2020 documented as of this encounter (statuses as of 03/27/2023) Immunizations Name Administration Dates Next Due COVID-19 [...] this encounter Progress Notes * Nikki Pena, [facility] - 03/27/2023 4:46 PM EDT [facility] Adult TPN Documentation [...] 2 mg - add daily Labs from 03/26/23 reviewed - Continue the same TPN New DL tunneled line placed today at [facility] on 02/07/23. Labs can be drawn every other week at [facility]. GI Nutrition appointment - Not yet scheduled Per Endocrinology appointment notes with Dr. Trinidad Rashid MD: Likely rebound hypoglycemiafrom TPN, discussed using honey or glucose gel to treat symptoms of low BG. ( Also TPN cycle changed to run over longer time period) Nikki Pena RPh 03/27/2023 4:46 PM documented in this encounter Plan of Treatment Upcoming Encounters Date Type Specialty Care Team Description 03/28/2023 Hospital Encounter Radiology 04/11/2023 Immunization/Injection Hematology Oncolog y Nurse, Med [address] [facility] [place] [address] 05/26/2023 Office Visit Family Medicine Meek Lopez MD [address] [place] [address] 05/27/2023 Office Visit Rheumatology Jean Rodríguez MD [address] [place] [address] 06/13/2023 Telemedicine Gastroenterology Priyanka Pitts MD [address] [place] [address] 07/22/2023 Laboratory Laboratory Melania Schuster [address] [place] [address] 07/29/2023 Office Visit Hematology Oncology Lupe Arboleda CRNP [address] [facility] [place] [address] Health Maintenance Due Date Last Done Comments [...] this encounter Medical Devices Implanted Type Area Supervisor Steel Division Device Identifier Shelf Expiration Date Model / Serial / Lot Tube Feed 16f 45 - [id number] Implanted:Qty : 1 on 10/16/2020 at [facility] Left: Abdomen [facility] [id number] 08/09/2021 0250-16 / / [id number] documented as of this encounter Advance Directives [...] the patient have Health Care Power of Cephalometric Tracer? No Code Status History Code Status Date Activated Date Inactivated Comments Full Code 08/29/2020 12:26 PM 09/06/2020 7:08 PM Question Answer Comments Discussion of Advance Direct albert occurred with: Not Discussed Does the patient have a Living Will? No Does the patient have Health Care Power of Cephalometric Tracer? No Care Teams Diversity Specialist Relationship Specialty Start Date End Date Meek Lopez MD [address] [place] [address] PCP - General Family Medicine 03/17/20 documented as of this encounter
--- OUTSIDE RECORDS SUMMARY | 2023-07-04 03:48 | External Medical Summary | Summary of Care ---
Author Name Unknown Organization [facility] Address [address] [place] [address] Phone [phone] Care Team Providers Care Property Claim Rep Name Role Phone Meek Lopez MD Primary Care Provider +1- [phone] Reason for Visit * Reason Onset Date Comments Order Request 03/26/2023 Encounter Details Date Type Department Care Team Description 03/26/2023 Telephone Nutrition & Weight Management, [place] [address] [id number] Priyanka Pitts MD [address] [place] [address] Order Request Allergies Active Allergy [...] 1 Each 11 05/29/2022 Active Dexcom G6 Senior Litigation Paralegal DeviceIndications:Hy poglycemia Use as directed. 1 Each 0 08/02/2022 Active Omeprazole 20 MG Oral Capsule Delayed Release (PriLOSEC) take 1 capsule by mouth IN THE MORNING and take 1 capsule by mouth BEFORE BEDTIME 60 Capsule 3 08/22/2022 Active Cholecalciferol 1.25 MG (72875 UT) Oral CapsuleIndications:V itamin D deficiency Take [...] Hematology Oncolog y Nurse, Med 4 [address] [facility] [place], [place] [address] 05/26/2023 Office Visit Family Medicine Meek Lopez MD [address] [place] [address] 05/27/2023 Office Visit Rheumatology Jean Rodríguez MD [address] [facility] [place] [address] 06/13/2023 Telemedicine Gastroenterology RestemaPriyanka waggoner MD [address] [place] [address] 07/22/2023 Laboratory Laboratory Melania Schuster Tiffany [address] [facility] [place] [address] 07/29/2023 Office Visit Hematology Oncology Lupe Arboleda CRNP 400 [facility] [place] [address] Scheduled Orders Name Type [...] this encounter Medical Devices Implanted Type Area Lacquer Sizer Device Identifier Shelf Expiration Date Model / Serial / Lot Tube Feed 16f 45 - [id number] Implanted:Qty : 1 on 10/16/2020 at [facility] Left: Abdomen [facility] [id number] 08/09/2021249-16 / [id number] documented as of this encounter Visit Diagnoses [...] the patient have Health Care Power of Restaurant Manager? No Code Status History Code Status Date Activated Date Inactivated Comments Full Code 08/29/2020 12:26 PM 09/06/2020 7:08 PM Question Answer Comments Discussion of Advance Direct albert occurred with: Not Discussed Does the patient have a Living Will? No Does the patient have Health Care Power of Restaurant Manager? No Care Teams Property Claim Rep Relationship Specialty Start Date End Date Meek Lopez MD [address] [place], [place] [phone] PCP - General Family Medicine 03/17/20 documented as of this encounter
--- OUTSIDE RECORDS SUMMARY | 2023-07-04 03:48 | External Medical Summary | Summary of Care ---
Author Name Unknown Organization [facility] Address [address] [place] [address] Phone [phone] Care Team Providers Care Inspector Hairspring Truing Name Role Phone Meek Lopez MD Primary Care Provider +1- [phone] Encounter Details Date Type Department Care Team Description 03/27/2023 Orders Only Nutrition & Weight Management, [place] [address] [place] [address] Priyanka Pitts MD [address] [place] [address] Allergies Active Allergy Reactions Severity [...] 1 Each 11 05/29/2022 Active Dexcom G6 Pediatric Dentist DeviceIndications:Hy poglycemia Use as directed. 1 Each 0 08/02/2022 Active Omeprazole 20 MG Oral Capsule Delayed Release (PriLOSEC) take 1 capsule by mouth IN THE MORNING and take 1 capsule by mouth BEFORE BEDTIME 60 Capsule 3 08/22/2022 Active Cholecalciferol 1.25 MG (30283 UT) Oral CapsuleIndications:V itamin D deficiency Take [...] Oncolog y Nurse, Med [address] [place] [address] 05/26/2023 Office Visit Family Medicine Meek Lopez MD [address] [place] [address] 05/27/2023 Office Visit Rheumatology Jean Rodríguez MD [address] [place] [address] 06/13/2023 Telemedicine Gastroenterology Priyanka Pitts MD [address] [place] [address] 07/22/2023 Laboratory Laboratory SchusterMelania [address] [place] [address] 07/29/2023 Office Visit Hematology Oncology Lupe Arboleda [place], VULCANIZER RUBBER PLATE [address] [place] [address] Health Maintenance Due Date Last Done [...] this encounter Medical Devices Implanted Type Area Grain Farmer Device Identifier Shelf Expiration Date Model / Serial / Lot Tube Feed 16f 45 - [id number] Implanted:Qty : 1 on 10/16/2020 at [facility] Left: Abdomen [facility] [id number] 08/09/2021 0250-16 / [id number] documented as of this encounter Procedures Procedure Name Priority Date/Time Associated Diagnosis Comments CHEMISTRY-OUTSIDE Routine 03/26/2023 documented in this encounter Results * (ABNORMAL) CHEMISTRY-OUTSIDE (03/26/2023) Not all results display below - see scan for full detail OUTSIDE LAB (SEE SCANNED REPORT) Comment:SCAN INCLUDES - CMP, PHOSPHORUS, MG, TRIG, CBC CREATININE-OUTSID E LAB 0.58(A) 0.6 - 1.2 MG/DL OUTSIDE LAB (SEE SCANNED REPORT) EGFR-OUTSIDE LAB 128.1 ML/MIN OUT SIDE LAB (SEE SCANNED REPORT) POTASSIUM-OUTSIDE LAB 4.0 3.5 - 5.1 MMOL/L OUTSIDE LAB (SEE SCANNED REPORT) GLUCOSE-OUTSIDE LAB 84 70 - 99 MG/DL OUTSIDE LAB (SEE [...] LAB OUTSIDE LAB (SEE SCANNED REPORT) HEMOGLOBIN, [id number] LAB OUTSIDE LAB (SEE SCANNED REPORT) PHOSPHORUS-OUTSID E LAB 4.2 2.5 - 4.9 MG/DL OUTSIDE LAB (SEE SCANNED REPORT) PTH-OUTSIDE LAB OUTS DANIEL LAB (SEE SCANNED REPORT) MICROALBUMIN RATIO-OUTSIDE LAB OUTSIDE LA B (SEE SCANNED REPORT) PROTEIN, UA-OUTSIDE LAB OUTSIDE LAB (SEE SCANNED REPORT) HEMOGLOBIN-OUTSID E LAB 13.1 12.0 - 16.0 G/DL OUTSIDE LAB (SEE SCANNED REPORT) 03/26/2023 Priyanka Pitts MD LABORATORY OUTSIDE LAB (SEE [...] the patient have Health Care Power of Licensed Practical Nurse Instructor? No Code Status History Code Status Date Activated Date Inactivated Comments Full Code 08/29/2020 12:26 PM 09/06/2020 7:08 PM Question Answer Comments Discussion of Advance Direct albert occurred with: Not Discussed Does the patient have a Living Will? No Does the patient have Health Care Power of Licensed Practical Nurse Instructor? No Care Teams Inspector Hairspring Truing Relationship Specialty Start Date End Date Meek Lopez MD [address] [place] [address] PCP - General Family Medicine 03/17/20 documented as of this encounter
--- OUTSIDE RECORDS SUMMARY | 2023-07-04 03:49 | External Medical Summary | Summary of Care ---
Author Name Unknown Organization [facility] Address [address] [place] [address] Phone [phone] Care Team Providers Care Staple Fiber Washer Name Role Phone Meek Riddle MD Primary Care Provider +1- [phone] Reason for Referral * Evaluate & Treat - Unlimited Visits (Within 30 days (routine)) - Pending Review Specialty Diagnoses / Procedures Referred By Gayle benedict Referred To Contact Gastroenterology Diagnoses Gastrointestinal dysmotility Severe protein-calorie malnutrition (HCC) Abdominal pain, generalized Meek Riddle MD [address] [place] [address] Referral ID Status Reason Start Date Expiration Date Visits Requested Visits Authorized [id number] Pending Review Specialty Services Required 03/25/2023 999 999 Question Answer Referral Priority Within 30 days (routine) For what condition is the patient being referred? All Gastro Conditions Encounter Details Date Type Department Care Team Description 03/24/2023 Telephone [facility] [address] [place] [address] Meek Riddle MD [address] [place] [address] Allergies Active Allergy Reactions Severity [...] as of this encounter (statuses as of 03/25/2023) Medications Medication Sig Dispensed Refills Start Date [...] 1 Each 11 05/29/2022 Active Dexcom G6 Piping Drafter DeviceIndications:Hy poglycemia Use as directed. 1 Each 0 08/02/2022 Active Omeprazole 20 MG Oral Capsule Delayed Release (PriLOSEC) take 1 capsule by mouth IN THE MORNING and take 1 capsule by mouth BEFORE BEDTIME 60 Capsule 3 08/22/2022 Active Cholecalciferol 1.25 MG (53365 UT) Oral CapsuleIndications:V itamin D deficiency Take [...] as of this encounter (statuses as of 03/25/2023) Active Problems Problem Noted Date Other vitamin [...] as of this encounter (statuses as of 03/25/2023) Resolved Problems Problem Noted Date Resolved Date H. pylori infection 04/15/2012 07/16/2020 documented as of this encounter (statuses as of 03/25/2023) Immunizations Name Administration Dates Next Due COVID-19 [...] as of this encounter Miscellaneous Notes * Addendum Note - Meek Riddle MD - 03/25/2023 5:57 PM EDTAddended by: MEEK RIDDLE on: 03/25/2023 05:57 PM Modules accepted: Orders * Telephone Encounter - Meek Riddle MD - 03/25/2023 5:55 PM EDT We had tried to refer her directly to the GI motility department at the [facility]. They havereviewed her case and did not agree to see her. The plan now is to see if the routine GI department at [facility] will see her for evaluation. If they see her and feel that she is appropriate for the motility clinic, perhaps they can make ithappen. New referral entered. Please assist pt with appt at [facility] GI department. * Telephone Encounter - LEXIS Barrera - 03/24/2023 11:49 AM EDT Please advise as below. * Telephone Encounter - Nikki Darnell - 03/24/2023 8:59 AM EDT 03/24/23 Pts mother was in for an appt and asked about referral for daughter to [facility] in [place]? Could pt be called regarding this referral? The first referral was denied, stating it was the wrong department? Pt can be reached at [phone]. documented in this encounter Plan of Treatment Upcoming Encounters Date Type Specialty Care Team Description 03/28/2023 Appointment Radiology 04/11/2023 Immunization/Injection Hematology Oncolog y Nurse, Med 4 [address] [facility] [place] [address] 05/26/2023 Office Visit Family Medicine Meek Riddle MD [address] [place] [address] 05/27/2023 Office Visit Rheumatology Jean Rodríguez MD [address] [facility] [place] [address] 06/13/2023 Telemedicine Gastroenterology Priyanka Pitts MD [address] [place], [place] [phone] 07/22/2023 Laboratory Laboratory Melania Schuster [address] [place] [address] 07/29/2023 Office Visit Hematology Oncology Lupe [facility]eda [facility] [id number] Scheduled Referrals Name Type Priority Associated Diagnoses [...] this encounter Medical Devices Implanted Type Area Housekeeping Director Device Identifier Shelf Expiration Date Model / Serial / Lot Tube Feed 16f 45 - [id number] Implanted:Qty : 1 on 10/16/2020 at [facility] Left: Abdomen [facility] [id number] 08/09/2021 0250-16 / / [id number] documented as of this encounter Visit Diagnoses [...] the patient have Health Care Power of Channel Layer? No Code Status History Code Status Date Activated Date Inactivated Comments Full Code 08/29/2020 12:26 PM 09/06/2020 7:08 PM Question Answer Comments Discussion of Advance Direct albert occurred with: Not Discussed Does the patient have a Living Will? No Does the patient have Health Care Power of Channel Layer? No Care Teams Staple Fiber Washer Relationship Specialty Start Date End Date Meek Riddle MD [address] [place] [address] PCP - General Family Medicine 03/17/20 documented as of this encounter
--- OUTSIDE RECORDS SUMMARY | 2023-07-04 03:49 | External Medical Summary | Summary of Care ---
Author Name Unknown Organization [facility] Address [address] [place] [address] Phone [phone] Care Team Providers Care Detective And Intelligence Analyst Name Role Phone Meek Lopez MD Primary Care Provider +1- [phone] Reason for Visit * Reason Onset Date Comments Advice 03/25/2023 Encounter Details Date Type Department Care Team Description [facility] [address] [place] [address] Robyn Cohn MD [address] [phone] Advice Allergies Active Allergy Reactions Severity Noted Date [...] 1 Each 11 05/29/2022 Active Dexcom G6 Welder Experimental DeviceIndications:Hy poglycemia Use as directed. 1 Each 0 08/02/2022 Active Omeprazole 20 MG Oral Capsule Delayed Release (PriLOSEC) take 1 capsule by mouth IN THE MORNING and take 1 capsule by mouth BEFORE BEDTIME 60 Capsule 3 08/22/2022 Active Cholecalciferol 1.25 MG (18184 UT) Oral CapsuleIndications:V itamin D deficiency Take [...] Miscellaneous Notes * Telephone Encounter - NORBERTO Howell - 03/25/2023 3:05 PM EDT Labs were faxed * Telephone Encounter - NORBERTO Howell - 03/25/2023 11:02 AM EDT Rowena from [facility] left message on voicemail. Priyanka's labs have and they will need a new set of labs faxed to them at [phone]. She is going tomorrow to have them drawn. Thanks documented in this encounter Plan of Treatment Upcoming Encounters Date Type Specialty Care Team Description 03/28/2023 Appointment Radiology 04/11/2023 Immunization/Injection Hematology Oncolog y Nurse, Med 4 [address] [facility] [place] [address] 05/26/2023 Office Visit Family Medicine Meek Lopez MD [address] [place] [address] 05/27/2023 Office Visit Rheumatology Jean Rodríguez MD [address] [place] [address] 06/13/2023 [facility]medicine [facility] [address] [place] [address] 07/22/2023 Laboratory Laboratory Schuster, Lab Tiffany [address] [place] [address] 07/29/2023 Office Visit Hematology Oncology Lupe Arboleda CRNP [address] [place], [place] [phone] Scheduled Orders Name Type Priority Associated Diagnoses Orde r Schedule CBC Lab Routine On total parenteral nutrition (TPN) Every Week for 99 Occurrences starting 03/25/2023 until 03/25/2024 COMPREHENSIVE METABOLIC PANEL Lab Routine On total parenteral nutrition (TPN) Every Week for 99 Occurrences starting 03/25/2023 until 03/25/2024 MAGNESIUM Lab Routine On total parenteral nutrition (TPN) Every Week for 99 Occurrences starting 03/25/2023 until 03/25/2024 PHOSPHORUS Lab Routine On total parenteral nutrition (TPN) Every Week for 99 Occurrences starting 03/25/2023 until 03/25/2024 TRIGLYCERIDES Lab Routine On total parenteral nutrition (TPN) Every Week for 99 Occurrences starting 03/25/2023 until 03/25/2024 Health Maintenance Due Date Last Done Comments [...] this encounter Medical Devices Implanted Type Area Watch Caser Device Identifier Shelf Expiration Date Model / Serial / Lot Tube Feed 16f 45 - [id number] Implanted:Qty : 1 on 10/16/2020 at [facility] Left: Abdomen [facility] [id number] 08/09/2021 [id number] documented as of this encounter Visit Diagnoses [...] the patient have Health Care Power of Waiter/Waitress Tourist Class? No Code Status History Code Status Date Activated Date Inactivated Comments Full Code 08/29/2020 12:26 PM 09/06/2020 7:08 PM Question Answer Comments Discussion of Advance Direct albert occurred with: Not Discussed Does the patient have a Living Will? No Does the patient have Health Care Power of Waiter/Waitress Tourist Class? No Care Teams Detective And Intelligence Analyst Relationship Specialty Start Date End Date Meek Lopez MD [address] [place] [address] PCP - General Family Medicine 03/17/20 documented as of this encounter
--- OUTSIDE RECORDS SUMMARY | 2023-07-04 03:49 | External Medical Summary | Summary of Care ---
Author Name Unknown Organization [facility] Address [address] [place] [address] Phone [phone] Care Team Providers Care Graphics Artist Name Role Phone Meek Lopez MD Primary Care Provider +1- [phone] Reason for Visit * Reason Onset Date Comments Advice 03/25/2023 Encounter Details Date Type Department Care Team Description 03/[facility] [address] [place] [address] Robyn Cohn MD [address] [phone] Advice Allergies Active Allergy Reactions Severity Noted [...] 1 Each 11 05/29/2022 Active Dexcom G6 Clerk Analyst DeviceIndications:Hy poglycemia Use as directed. 1 Each 0 08/02/2022 Active Omeprazole 20 MG Oral Capsule Delayed Release (PriLOSEC) take 1 capsule by mouth IN THE MORNING and take 1 capsule by mouth BEFORE BEDTIME 60 Capsule 3 08/22/2022 Active Cholecalciferol 1.25 MG (22430 UT) Oral CapsuleIndications:V itamin D deficiency Take [...] - 03/25/2023 11:02 AM EDT Rowena from [facility] left message on [employer]. Priyanka's labs have and they will need a new set of labs faxed to them at [phone]. She is going tomorrow to have them drawn. Thanks documented in this encounter Plan of Treatment Upcoming Encounters Date Type Specialty Care Team Description 03/28/2023 Appointment Radiology 04/11/2023 Immunization/Injection Hematology Oncolog y Nurse, Med 4 [address] [place] [address] 05/26/2023 Office Visit Family Medicine Meek Lopez MD [address] [place] [address] 05/27/2023 Office Visit Rheumatology Jean Rodríguez MD [address] [place] [address] 06/13/2023 [facility] [address] [facility] [address] 07/22/2023 Laboratory Laboratory SchusterMelania nuñez Tiffany [address] [facility] [address] 07/29/2023 Office Visit Hematology Oncology Lupe Arboleda CRNP [address] [place] [address] Scheduled Orders Name Type Priority Associated [...] this encounter Medical Devices Implanted Type Area Records Analyst Device Identifier Shelf Expiration Date Model / Serial / Lot Tube Feed 16f 45 - [id number] Implanted:Qty : 1 on 10/16/2020 at [facility] Left: Abdomen [facility] [id number] 08/09/2021 [id number] documented as of this encounter Visit Diagnoses [...] the patient have Health Care Power of Vocational Training Instructor? No Code Status History Code Status Date Activated Date Inactivated Comments Full Code 08/29/2020 12:26 PM 09/06/2020 7:08 PM Question Answer Comments Discussion of Advance Direct albert occurred with: Not Discussed Does the patient have a Living Will? No Does the patient have Health Care Power of Vocational Training Instructor? No Care Teams Graphics Artist Relationship Specialty Start Date End Date Meek Lopez MD [address] [place] [address] PCP - General Family Medicine 03/17/20 documented as of this encounter
--- OUTSIDE RECORDS SUMMARY | 2023-07-04 03:49 | External Medical Summary | Summary of Care ---
Author Name Unknown Organization [facility] Address [address] [place] [address] Phone [phone] Care Team Providers Care Brush Finisher Name Role Phone Meek Lopez MD Primary Care Provider +1- [phone] Encounter Details Date Type Department Care Team Description 03/20/2023 Orders Only Nutrition & Weight Management, [place] [address] [place] [address] Priyanka Pitts MD [address] [place] [address] Allergies Active Allergy Reactions Severity [...] as of this encounter (statuses as of 03/20/2023) Medications Medication Sig Dispensed Refills Start Date [...] 1 Each 11 05/29/2022 Active Dexcom G6 Social Work Associate DeviceIndications:Hy poglycemia Use as directed. 1 Each 0 08/02/2022 Active Omeprazole 20 MG Oral Capsule Delayed Release (PriLOSEC) take 1 capsule by mouth IN THE MORNING and take 1 capsule by mouth BEFORE BEDTIME 60 Capsule 3 08/22/2022 Active Cholecalciferol 1.25 MG (20612 UT) Oral CapsuleIndications:V itamin D deficiency Take [...] as of this encounter (statuses as of 03/20/2023) Active Problems Problem Noted Date Other vitamin [...] as of this encounter (statuses as of 03/20/2023) Resolved Problems Problem Noted Date Resolved Date H. pylori infection 04/15/2012 07/16/2020 documented as of this encounter (statuses as of 03/20/2023) Immunizations Name Administration Dates Next Due COVID-19 [...] Oncolog y Nurse, Med [address] [place] [address] 05/26/2023 Office Visit Family Medicine Meek Lopez MD [address] [place] [address] 05/27/2023 Office Visit Rheumatology Jean Rodríguez MD [address] [place] [address] 06/13/2023 Telemedicine Gastroenterology Priyanka Pitts MD [address] [place] [address] 07/22/2023 Laboratory Laboratory SchusterMelania nuñez Tiffany [address] [place] [address] 07/29/2023 Office Visit Hematology Oncology Lupe Arboledan, ASSISTANT PROFESSOR OF THEATER [address] [place] [address] Health Maintenance Due Date Last Done Comments Hepatitis B (1 of 3 - 3-dose series) 1997 GARDASIL-HPV IMMUNIZATION SERIES (1 - 2-dose series) 2008 Depression Screening, Annual for Pts 12 and Over 2009 HIV Screening 2012 Hepatitis C Screening [...] this encounter Medical Devices Implanted Type Area Director Apparel Device Identifier Shelf Expiration Date Model / Serial / Lot Tube Feed 16f 45 - [id number] Implanted:Qty : 1 on 10/16/2020 at [facility] Left: [facility] [id number] 08/09/2021 0250-16 [id number] documented as of this encounter Procedures Procedure Name Priority Date/Time Associated Diagnosis Comments CHEMISTRY-OUTSIDE Routine 03/19/2023 documented in this encounter Results * CHEMISTRY-OUTSIDE (03/19/2023) Not all results display below - see scan for full detail OUTSIDE LAB (SEE SCANNED REPORT) Comment:"SCAN INCLUDES" - IO NIZED CALCIUM, CMP, PHOS, MG, CBC, PLT CREATININE-OUTSID E LAB 0.72 0.6 - 1.2 MG/DL OUTSIDE LAB (SEE SCANNED REPORT) EGFR-OUTSIDE LAB 116.4 NO RANGE ML/MIN/1.7 3M2 OUTSIDE LAB (SEE SCANNED REPORT) POTASSIUM-OUTSIDE LAB 4.0 3.5 - 5.1 MMOL/L OUTSIDE LAB (SEE SCANNED REPORT) GLUCOSE-OUTSIDE LAB 85 70 - 99 MG/DL OUTSIDE LAB (SEE [...] LAB OUTSIDE LAB (SEE SCANNED REPORT) HEMOGLOBIN, [id number] LAB OUTSIDE LAB (SEE SCANNED REPORT) PHOSPHORUS-OUTSID E LAB 3.7 2.5 - 4.9 MG/DL OUTSIDE LAB (SEE SCANNED REPORT) PTH-OUTSIDE LAB OUTS DANIEL LAB (SEE SCANNED REPORT) MICROALBUMIN RATIO-OUTSIDE LAB OUTSIDE LA B (SEE SCANNED REPORT) PROTEIN, UA-OUTSIDE LAB OUTSIDE LAB (SEE SCANNED REPORT) HEMOGLOBIN-OUTSID E LAB 13.1 12.0 - 16.0 G/DL OUTSIDE LAB (SEE SCANNED REPORT) 03/19/2023 Priyanka Pitts MD LABORATORY OUTSIDE LAB (SEE [...] the patient have Health Care Power of Byproducts Pump Operator? No Code Status History Code Status Date Activated Date Inactivated Comments Full Code 08/29/2020 12:26 PM 09/06/2020 7:08 PM Question Answer Comments Discussion of Advance Direct albert occurred with: Not Discussed Does the patient have a Living Will? No Does the patient have Health Care Power of Byproducts Pump Operator? No Care Teams Brush Finisher Relationship Specialty Start Date End Date Meek Lopez MD [address] [place], [place] [phone] PCP - General Family Medicine 03/17/20 documented as of this encounter
--- OUTSIDE RECORDS SUMMARY | 2023-07-04 03:49 | External Medical Summary | Summary of Care ---
Author Name Unknown Organization [facility] Address [address] [place] [address] Phone [phone] Care Team Providers Care Deputy Chief Magistrate Name Role Phone Meek Lopez MD Primary Care Provider +1- [phone] Encounter Details Date Type Department Care Team Description 03/12/2023 Result Scan Unspecified Department Ramon Rashid MD [address] [place], [place] [id number] <No scans attached> Allergies Active Allergy Reactions Severity Noted Date [...] as of this encounter (statuses as of 03/14/2023) Medications Medication Sig Dispensed Refills Start Date [...] 1 Each 11 05/29/2022 Active Dexcom G6 Darkroom Technician DeviceIndications:Hy poglycemia Use as directed. 1 Each 0 08/02/2022 Active Omeprazole 20 MG Oral Capsule Delayed Release (PriLOSEC) take 1 capsule by mouth IN THE MORNING and take 1 capsule by mouth BEFORE BEDTIME 60 Capsule 3 08/22/2022 Active Cholecalciferol 1.25 MG (96776 UT) Oral CapsuleIndications:V itamin D deficiency Take [...] as of this encounter (statuses as of 03/14/2023) Active Problems Problem Noted Date Other vitamin [...] as of this encounter (statuses as of 03/14/2023) Resolved Problems Problem Noted Date Resolved Date H. pylori infection 04/15/2012 07/16/2020 documented as of this encounter (statuses as of 03/14/2023) Immunizations Name Administration Dates Next Due COVID-19 [...] Oncolog y Nurse, Med [address] [place] [address] 05/26/2023 Office Visit Family Medicine Meek Lopez MD [address] [place] [address] 05/27/2023 Office Visit Rheumatology Jean Rodríguez MD [address] [place] [address] 06/13/2023 Telemedicine Gastroenterology Priyanka Pitts MD [address] [place] [address] 07/22/2023 Laboratory Laboratory [facility] [address] [place] [address] 07/29/2023 Office Visit Hematology Oncology Lupe Arboleda CRNP [address] [facility] [place] [address] Health Maintenance Due Date Last Done Comments [...] this encounter Medical Devices Implanted Type Area Nitric Acid Plant Operator Device Identifier Shelf Expiration Date Model / Serial / Lot Tube Feed 16f 45 - [id number] Implanted:Qty : 1 on 10/16/2020 at [facility] Left: Abdomen [facility] [id number] 08/09/2021 0250-16 / / [id number] documented as of this encounter Procedures Procedure Name Priority Date/Time Associated Diagnosis Comments OUTSIDE LAB RESULTS 03/12/2023 documented in this encounter Results * OUTSIDE LAB RESULTS (03/12/2023) 03/12/2023 Ramon Rashid MD LABORATORY documented in this encounter Advance Directives Latest [...] the patient have Health Care Power of Hyperion Developer? No Code Status History Code Status Date Activated Date Inactivated Comments Full Code 08/29/2020 12:26 PM 09/06/2020 7:08 PM Question Answer Comments Discussion of Advance Direct albert occurred with: Not Discussed Does the patient have a Living Will? No Does the patient have Health Care Power of Hyperion Developer? No Care Teams Deputy Chief Magistrate Relationship Specialty Start Date End Date Meek Lopez MD [address] [place] [address] PCP - General Family Medicine 03/17/20 documented as of this encounter
--- OUTSIDE RECORDS SUMMARY | 2023-07-04 03:49 | External Medical Summary | Summary of Care ---
Author Name Unknown Organization [facility] Address [address] [place] [address] Phone [phone] Care Team Providers Care Industrial Service Technician Name Role Phone Meek Lopez MD Primary Care Provider +1- [phone] Encounter Details Date Type Department Care Team Description 03/24/2023 Telephone [facility] [address] [place] [address] Meek Lopez MD [address] [place] [address] Allergies Active Allergy Reactions Severity [...] as of this encounter (statuses as of 03/24/2023) Medications Medication Sig Dispensed Refills Start Date [...] syringe. 1 Each 05/29/2022 Active Dexcom G6 Strand Galvanizer DeviceIndications:Hy poglycemia Use as directed. 1 Each 0 08/02/2022 Active Omeprazole 20 MG Oral Capsule Delayed Release (PriLOSEC) take 1 capsule by mouth IN THE MORNING and take 1 capsule by mouth BEFORE BEDTIME 60 Capsule 3 08/22/2022 Active Cholecalciferol 1.25 MG (33526 UT) Oral CapsuleIndications:V itamin D deficiency Take [...] as of this encounter (statuses as of 03/24/2023) Active Problems Problem Noted Date Other vitamin [...] as of this encounter (statuses as of 03/24/2023) Resolved Problems Problem Noted Date Resolved Date H. pylori infection 04/15/2012 07/16/2020 documented as of this encounter (statuses as of 03/24/2023) Immunizations Name Administration Dates Next Due COVID-19 [...] encounter Miscellaneous Notes * Telephone Encounter - Nikki Darnell - 03/24/2023 8:59 AM EDT 03/24/23 Pts mother was in for an appt and asked about referral for daughter [facility]? Could pt be called regarding this referral? The first referral was denied, stating it was the wrong department? Pt can be reached at [phone]. documented in this encounter Plan of Treatment Upcoming Encounters Date Type Specialty Care Team Description 03/28/2023 Appointment Radiology 04/11/2023 Immunization/Injection Hematology Oncolog y Nurse, Med 4 [address] [facility] [place] [address] 05/26/2023 Office Visit Family Medicine Meek Lopez MD [address] [place] [address] 05/27/2023 Office Visit Rheumatology Jean Rodríguez MD [address] [place] [address] 06/13/2023 Telemedicine Gastroenterology [place], Priyanka Flores MD [address] [place], [place] [id number] 07/22/[address] [facility], Lab [facility] [address] [place] [address] 07/29/2023 Office Visit Hematology Oncology [facility] [address] [facility] [address] Health Maintenance Due Date Last Done [...] this encounter Medical Devices Implanted Type Area Integrated Specialist Device Identifier Shelf Expiration Date Model / Serial / Lot Tube Feed 16f 45 - [id number] Implanted:Qty : 1 on 10/16/2020 at [facility] Left: Abdomen [facility] [id number] 08/09/2021 [id number] documented as of this encounter Advance Directives [...] the patient have Health Care Power of Technical Laboratory Asst? No Code Status History Code Status Date Activated Date Inactivated Comments Full Code 08/29/2020 12:26 PM 09/06/2020 7:08 PM Question Answer Comments Discussion of Advance Direct albert occurred with: Not Discussed Does the patient have a Living Will? No Does the patient have Health Care Power of Technical Laboratory Asst? No Care Teams Industrial Service Technician Relationship Specialty Start Date End Date Meek Lopez MD [address] [place] [address] PCP - General Family Medicine 03/17/20 documented as of this encounter
--- OUTSIDE RECORDS SUMMARY | 2023-07-04 03:49 | External Medical Summary | Summary of Care ---
Author Name Unknown Organization [facility] Address [address] [place] [address] Phone [phone] Care Team Providers Care Vascular Ultrasound Technician Name Role Phone Meek Lopez MD Primary Care Provider +1- [phone] Encounter Details Date Type Department Care Team Description 03/24/2023 Telephone [facility] [address] [place] [address] Meek Lopez MD [address] [place] [address] Allergies Active Allergy Reactions Severity [...] syringe. 1 Each 05/29/2022 Active Dexcom G6 Brick Veneer Maker DeviceIndications:Hy poglycemia Use as directed. 1 Each 0 08/02/2022 Active Omeprazole 20 MG Oral Capsule Delayed Release (PriLOSEC) take 1 capsule by mouth IN THE MORNING and take 1 capsule by mouth BEFORE BEDTIME 60 Capsule 3 08/22/2022 Active Cholecalciferol 1.25 MG (01928 UT) Oral CapsuleIndications:V itamin D deficiency Take [...] encounter Miscellaneous Notes * Telephone Encounter - LEXIS Barrera - 03/24/2023 11:49 AM EDT Please advise as below. * Telephone Encounter - Nikki Darnell - 03/24/2023 8:59 AM EDT 03/24/23 Pts mother was in for an appt and asked about referral for daughter to [facility] in [place]? Could pt be called regarding this referral? The first referral was denied, stating it was the wrong department? Pt can be reached at [phone]. documented in this encounter Plan of Treatment Upcoming Encounters Date Type Specialty Care Team Description 03/28/2023 Appointment Radiology 04/11/2023 Immunization/Injection Hematology Oncolog y Nurse, Med [address] [place] [address] 05/26/2023 Office Visit Family Medicine O[place]ling, Meek R, MD [address] [place] [address] 05/27/2023 Office Visit Rheumatology Jean Rodríguez MD [address] [place] [address] 06/13/2023 [facility] [address] [place] [address] 07/22/2023 Laboratory Laboratory [facility] [address] [place] [address] 07/29/2023 Office Visit Hematology Oncology Lupe Arboleda CRNP [address] [place] [address] Health Maintenance Due Date Last Done [...] this encounter Medical Devices Implanted Type Area Counterintelligence Agent Device Identifier Shelf Expiration Date Model / Serial / Lot Tube Feed 16f 45 - [id number] Implanted:Qty : 1 on 10/16/2020 at [facility] Left: Abdomen [facility] [id number] 08/09/2021 0250-16 [id number] documented as of this encounter Advance Directives [...] the patient have Health Care Power of Knitter Machine? No Code Status History Code Status Date Activated Date Inactivated Comments Full Code 08/29/2020 12:26 PM 09/06/2020 7:08 PM Question Answer Comments Discussion of Advance Direct albert occurred with: Not Discussed Does the patient have a Living Will? No Does the patient have Health Care Power of Knitter Machine? No Care Teams Vascular Ultrasound Technician Relationship Specialty Start Date End Date Meek Lopez MD [address] [place] [address] PCP - General Family Medicine 03/17/20 documented as of this encounter
[2023-07-04 04:06] LABS: Enterococcus faecalis DETECTED (NotDetected)
[2023-07-04] MEDS ORDERED: PIPER/TAZO 4.5g in D5W MINI-B 100 ML IV ONE (04:30)
[2023-07-04 06:38] LABS: BUN Creatinine Ratio 13.3 (10-20); Calcium 8.1 mg/dl (8.6-10.3); Creatinine Clr Calc Pharmacy 107.3 ml/min; Est GFR (African American) 146.8 ml/min; Est GFR (Non-African American) 126.7 ml/min; Magnesium 1.9 mg/dl (1.7-2.4); Phosphorus 2.8 mg/dl (2.5-4.9); Potassium 3.6 mmol/L (3.5-5.1)
[2023-07-04 06:44] LABS: Troponin I High Sensitivity 3.5 pg/ml (0-14)
[2023-07-04 06:49] LABS: Basophils # (auto) 0.02 K/uL (0.00-0.20); Basophils % (auto) 0.4 %; Eosinophils # (auto) 0.01 K/uL (0.00-0.50); Eosinophils % (auto) 0.2 %; Hematocrit (blood only) 36.2 % (37.0-47.0); Hemoglobin 11.9 g/dl (12.0-16.0); Immature Granulocytes # (auto) 0.02 K/uL (0.01-0.20); Immature Granulocytes % (auto) 0.4 %; Lymphocytes # (auto) 1.17 K/uL (1.20-3.40); Lymphocytes % (auto) 22.2 %; Mean Corpuscular Hemoglobin 29.7 pg (25.0-34.0); Mean Corpuscular Hgb Conc 32.9 g/dL (32.0-36.0); Mean Corpuscular Volume 90.3 fL (80.0-100.0); Mean Platelet Volume 9.2 fL (9.4-12.4); Monocytes # (auto) 0.26 K/uL (0.11-0.59); Monocytes % (auto) 4.9 %; Neutrophils # (auto) 3.78 K/uL (1.40-6.50); Neutrophils % (auto) 71.9 %; Platelet Count 252 K/uL (130-400); RDW Coefficient of Variation 12.6 % (11.5-14.5); RDW Standard Deviation 42.1 fL (36.4-46.3); Red Blood Count 4.01 M/uL (4.20-5.40); White Blood Count 5.26 K/ul (4.8-10.8)
--- NOTE | 2023-07-04 08:53 | Cardiology Consultation ---
Date of Consultation July 04, 2023 Assessment & Plan (1) Sepsis: (2) Tachycardia: (3) POTS (postural orthostatic tachycardia syndrome): (4) Severe malnutrition: Plan Assessment: 27 year-old female with complex past medical history presents with tachycardia in the setting of known POTS, malnutrition, GI dysmotility and new diagnosis of sepsis. Plan: 1. Sepsis: -Unfortunately, not the first time patient has struggled with this. She reports this has been her 4th central line/Chao device. -While patient has an underlying diagnosis of POTS, poor nutrition status, she now is in the acute setting of an infectious process likely precipitating her tachycardia. -Patient is asymptomatic and review of telemetry demonstrates HR 100-120's, regular. No evidence of other ectopy or arrhythmia. -Continue to monitor on telemetry. -Continue with adequate hydration, and antibiotic use as a result of positive blood cultures. -Review of vital signs demonstrates adequate blood pressure, and no repeat fevers. Anti-pyretics as appropriate. 2. Tachycardia: 3. POTS: -Multi-factorial. In the setting of active sepsis would suggest that her tachycardia is infection driven. -continue with adequate hydration, IV antibiotics as per primary team. -Patient denies any recent or active POTS symptoms and feels that she has learned to adapt with her diagnosis in a normal setting. 4. GI dysmotility/malnutrition: -Poor nutrition status requiring TPN supplementation, now complicated by active sepsis with positive blood cultures from both the central line site and peripheral site -Continued management per primary team and GI as appropriate. Case has been discussed with Dr. Garcia. Further recommendations regarding plan of care as per his assessment. I spent a total of 30 minutes on the date of service in preparation, delivery, documentation of the care provided to the patient excluding any time spent in the performance of separately billed services. ZA [facility] Cardiology [facility] Supervising Physician Co-Signing Physician Notes Supervising Physician Attestation: I have personally performed a history and physical examination on the patient. I agree with the ZA's findings and plan as documented with the following additions. Subjective: The patient's parents were at the bedside at the time of my assessment. The patient states that she presented to the emergency department due to concerns of sensation of fevers and chills x 2 days duration and sensation of elevated heart rate. At present she is improved. Telemetry overnight for the most part reveals sinus tachycardia in the 120s. Exam: Cardiovascular: Regular rhythm, tachycardic, no murmurs, no edema Chest: Right sided tunneled catheter site clean dry and intact with no erythema Data: Echocardiogram performed this morning and interpreted independently: Sinus tachycardia with rates in the range of 100 1020 bpm present during the echocardiogram. The left ventricular wall motion was normal with LVEF in the range of 60 to 65% (normal). The right ventricular chamber size and systolic function is normal. There are no significant valvular abnormalities within the limitations of this imaging modality. 2/2 blood cultures obtained on presentation 07/03/2023 at 1831 and 1827 yielding gram-positive cocci in chains preliminarily, concerning for Enterococcus bacteremia. -Repeat blood cultures obtained this morning after patient having received antibiotics. Assessment and Plan: Sinus tachycardia in the setting of bacteremia, with one of the abnormal blood cultures drawn from the catheter Concern for tunnelled catheter infection -A previous tunneled catheter has been removed in June, in the setting of fungemia. -Patient receives TPN via tunneled catheter on a chronic basis, and also has a chronic jejunostomy tube. -Would speculate that she has an acute worsening sinus tachycardia that is physiologic related to infection. -Agree with antibiotic therapy, stable from cardiac perspective to have catheter removed by surgery. -Continue monitor sinus tachycardia on telemetry for now. I spent a total of 20 minutes on the date of service in preparation, delivery, and documentation of the care provided to this patient, excluding any time spent in the performance of separately billed services. Peter Garcia DO History of Present Illness Reason for Consultation: Tachycardia [facility] Attending Physician: Alexus Osei MD History of Present Illness Patient is a 27 year-old female with PMHx significant for Jaqui-Danlos disease, GI dysmotility currently on TPN, malnutrition, POTS (follows with JOSEF), history of fungemia (2020), multiple Chao device replacements that presented to the ER with complaints of tachycardia and spiking a temperature anytime she would softlines supervisor her TPN. Reported rates in the 180's. She states that as soon as she would unhook her TPN she would feel okay. Initial labs on presentation show no significant electrolyte imbalance, no renal dysfunction, Troponin negative x2. WBC WNL. Chest xray negative for acute process. CTA Chest negative for any acute findings. EKG shows Sinus tachycardia rate [address]-T wave changes. Echocardiogram demonstrates LVEF 60-65%, normal left ventricular wall motion, no significant valvular abnormalities within the limitations of this imaging modality. Urine culture pending. Blood cultures Positive x2 demonstrating gram positive cocci in chains. Site one-Central line. Site two-Peripheral draw. Patient is resting comfortably in bed at this time. She is calm and non- excitable. She denies any recent acute URI symptoms, no urinary symptoms, no recent N/V/D or other acute illness. She endorses a chronic dry cough, but has attributed it to seasonal allergies and post nasal drip. She denies any chest pain, pressure palpitations, shortness of breath, PND, pre-syncope, syncope or edema. Of note, she had testing conducted at [facility] dating back to 2020 in which she had a tilt table test and was diagnosed with POTS. She has been established with [facility], but has not followed with care in quite some time. When attempting to obtain a timeline of her past medical history, her digestive concerns/dysmotility date back to around age 14. she denies any prior history of eating disorders, but also did not elaborate more. Allergies Allergy/AdvReac Type Severity Reaction Status Date / Time diphenhydramine Allergy Severe Urticaria, Verified 07/03/23 20:55 [From Benadryl] severe anxiety, jittery iron [From Venofer] Allergy Severe Abdominal Verified 07/03/23 20:55 Pain prochlorperazine Allergy Severe Anaphylaxis Verified 07/03/23 20:55 [From Compazine] adhesive Allergy Intermediate Redness, Verified 07/03/23 20:55 swelling gluten Allergy Intermediate Hives, GI Verified 07/03/23 20:55 upset peanut Allergy Intermediate Itchy Verified 07/03/23 20:55 throat tree nut Allergy Intermediate Itchy Verified 07/03/23 20:55 throat pollen extracts Allergy Mild Itchy Verified 07/03/23 20:55 eyes, sneezing, congestion chlorhexidine Allergy Unknown Unknown Verified 07/03/23 20:55 Latex, Natural Rubber AdvReac Intermediate Redness, Verified 07/03/23 20:55 itchy Home Medications Medication Instructions Recorded Confirmed Type famotidine 20 mg tablet 20 mg PO BID 04/09/21 07/03/23 History fludrocortisone 0.1 mg tablet 0.1 mg PO QAM 04/09/21 07/03/23 History loratadine 10 mg tablet 10 mg PO QAM 04/09/21 07/03/23 History montelukast 10 mg tablet 10 mg PO HS 04/09/21 07/03/23 History (Singulair) ondansetron HCl 8 mg tablet 8 mg PO Q8 PRN Nausea 04/09/21 07/03/23 History linaclotide 145 mcg capsule 145 mcg PO QAM PRN Constipation 01/02/22 07/03/23 History (Linzess) cholecalciferol (vitamin D3) 1,250 1,250 mcg PO WK 01/13/23 07/03/23 History mcg (50,000 unit) capsule granisetron HCl 1 mg tablet 1 mg PO Q12H 05/07/23 07/03/23 History Patient History Medical History Abdominal pain, chronic, epigastric chronic Anemia Central venous catheter in place broke- clamped in ER, taped around site Chronic pain Jaqui-Danlos disease Dx several years ago Gastrointestinal dysmotility Gastroparesis History of COVID-19 02/2022, not hospitalized Jejunostomy tube present placed October 2020 Neuropathy legs On total parenteral nutrition (TPN) POTS (postural orthostatic tachycardia syndrome) Reactive hypoglycemia dexcom present to left arm Severe malnutrition 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 Surgical History H/O wisdom tooth extraction H/O wrist surgery right History of esophagogastroduodenoscopy (EGD) History of myringotomy History of surgery (06/24/21) Removal of Right Tunneled Central Line in Internal Jugular Catheter S/P knee surgery Left Family History Other Adopted Social History Smoking Status: Never smoker Second Hand Exposure: No; Do You Dip or Chew Tobacco: No; Hx Alcohol Use: Yes Alcohol type: hard liquor Hx Substance Use: No Preferred Language: Ugandan Communication Ability: Effective Bed Laborer Required: No Beliefs That Will Affect Care: None Current Living Situation: Family Current Living Situation Comment: Lives w/ family at home Other Information That Helps Us Care for You: No Feels Safe at Home: Yes Safety Concerns: Feels Safe At This Time Assistive Devices: None Review of Systems Review of Systems: All systems reviewed & are unremarkable except as noted in HPI & below Physical Exam Constitutional: + thin and + malnourished Neck: normal visual inspection and trachea midline Respiratory: normal respiratory effort, lungs clear to auscultation Cardiovascular: Rate/Rhythm: regular rhythm and + tachycardic Heart Sounds: normal S1 and normal S2; no murmur Vessels: no JVD Extremities: normal capillary refill Skin: no rashes, warm and dry Psychiatric: A+Ox3, euthymic affect Apperance: appeared stated age Thought Process: goal directed thought process Results & Data Vital Signs (Past 12 Hours) Vital Signs Temp Pulse Pulse Pulse Resp BP BP 07/04/23 07:41 36.9 C 113 H 16 07/04/23 02:20 124 H 07/04/23 02:14 37.4 C 116 H 16 111/76 07/04/23 02:14 07/04/23 01:45 126 H 14 126/72 07/04/23 01:00 134 H 20 130/91 07/04/23 00:30 122 H 21 118/87 07/04/23 00:30 121 H 07/04/23 00:00 117 H 19 119/88 07/03/23 23:30 123 H 19 105/72 07/03/23 23:00 125 H 16 113/83 07/03/23 22:30 124 H 24 117/88 07/03/23 22:00 124 H 24 117/91 07/03/23 21:30 117 H 19 108/72 07/03/23 21:00 124 H 23 114/69 BP Pulse Ox Pulse Ox O2 Del Method O2 Del Method 07/04/23 07:41 116/78 99 Room Air 07/04/23 02:20 07/04/23 02:14 98 Room Air 07/04/23 02:14 98 Room Air 07/04/23 01:45 96 Room Air 07/04/23 01:00 99 Room Air 07/04/23 00:30 99 Room Air 07/04/23 00:30 07/04/23 00:00 99 Room Air 07/03/23 23:30 100 Room Air 07/03/23 23:00 99 Room Air 07/03/23 22:30 100 Room Air 07/03/23 22:00 95 Room Air 07/03/23 21:30 96 Room Air 07/03/23 21:00 100 Room Air Laboratory Results Cardiac Enzymes 07/03/23 07/04/23 Range/Units 18:31 05:46 AST 38 (13-39) U/L Troponin I High Sens 3.5 3.5 (0-14) pg/ml CBC 07/03/23 07/04/23 Range/Units 18:31 05:46 WBC 5.89 5.26 (4.8-10.8) K/ul RBC 5.02 4.01 L (4.20-5.40) M/uL Hgb 14.6 11.9 L (12.0-16.0) g/dl Hct 45.4 36.2 L (37.0-47.0) % Plt Count 316 252 (130-400) K/uL Neut # (Auto) 4.68 3.78 (1.40-6.50) K/uL Lymph # (Auto) 0.87 L 1.17 L (1.20-3.40) K/uL [place] # (Auto) 0.30 0.26 (0.11-0.59) K/uL Eos # (Auto) 0.01 0.01 (0.00-0.50) K/uL Baso # (Auto) 0.01 0.02 (0.00-0.20) K/uL Comprehensive Metabolic Panel 07/03/23 07/04/23 Range/Units 18:31 05:46 Sodium 138 137 (136-145) mmol/L Potassium 3.6 3.6 (3.5-5.1) mmol/L Chloride 102 109 H (98-107) mmol/L Carbon Dioxide 26 23 (21-32) mmol/L BUN 16 8 (6-23) mg/dl Creatinine 0.79 0.60 (0.6-1.2) mg/dl Glucose 81 127 H (70-99(Fasting)) mg/dl Calcium 9.7 8.1 L (8.6-10.3) mg/dl Direct Bilirubin 0.1 (0-0.2) mg/dl AST 38 (13-39) U/L ALT 67 H (7-52) U/L Alkaline Phosphatase 99 (34-104) U/L Total Protein 8.9 H D (6.0-8.3) gm/dl Albumin 5.0 (3.4-5.0) gm/dl Intake and Output 07/03/23 07/04/23 07/04/23 22:59 06:59 14:59 Intake Total 2099 Balance 2099 Intake: IV 2099 Piperacillin/Tazobactam 4.5 gm 100 / 100 In Dextrose 5% Mini-B 100 ml @ 200 mls/hr IV NOW ONE Rx#: [id number] Sodium Chloride 0.9% 2,000 ml @ 1999 / 1999 999 mls/hr IV .Q2H1M ONE Rx#: [id number] Other: Other Intake Source sips Weight 46.5 kg 47.4 kg Weight Measurement Method Chair Scale Standing Scale Diagnostic Findings EKG 07/04/23: ST rightward axis Rate 124 Echocardiogram LVEF 60-65%, normal left ventricular wall motion, no significant valvular abnormalities within the limitations of this imaging modality. (1) Sepsis Sepsis acute organ dysfunction status: without acute organ dysfunction Sepsis type: sepsis due to unspecified organism Qualified Code(s): A41.9 - Sepsis, unspecified organism
[2023-07-04] MEDS: HEPARIN SOD 5,000 UNIT/0.5 ML VIAL SQ SCH ×2 (09:49→20:13)
[2023-07-04] MEDS: FAMOTIDINE 20 MG TAB PO SCH ×2 (09:55→20:13)
[2023-07-04] MEDS: AMPICILLIN 2,000 MG in SODIUM CHLOR 0.9% MINI-B 100 ML IV SCH ×4 (09:55→20:14)
[2023-07-04] MEDS: FLUDROCORTISONE ACETATE 0.1 MG TAB PO SCH (09:56)
[2023-07-04] MEDS: LORATADINE 10 MG TAB PO SCH (09:56)
[2023-07-04] MEDS ORDERED: PIPERACILLIN/TAZOBACTAM 4.5 GM in DEXTROSE 5% MINI-B 100 ML IV SCH (10:00)
--- NOTE | 2023-07-04 11:22 | Communication Note ---
Date of Service: July 04, 2023 27-year-old female with past medical history significant for Jaqui-Danlos disease, GI dysmotility currently on TPN, malnutrition, POTS, history of joel emia in June 2021 treated with IV antibiotics and Port-A-Cath exchange, s/p G-tube placement and was on tube feeds for some time but could not tolerate them and currently back on TPN who presents with tachycardia and low grade fever at home especially on starting TPN over the past 2 days. Blood cultures growing GPC in chains Blood culture PCR show Enterococcus Patient has Bacteremia due to Enterococcus Tachycardia likely due to Sepsis Repeat blood cultures sent earlier were both peripheral I talked to ID Dr Parr who recommend sending a sample of blood culture from central line. Another blood culture was ordered to be drawn from central venous catheter I discussed with Vascular surg Dr Dick who is not available I spoke with Surgeon Dr Unger who plan to remove line Culture of catheter tip sent Continue ampicillin for now per ID Reviewed TTE report. No significant valvular abnormalities I discussed with Pharmacist about doing PPN for now until TPN can be reestablished Other plans as detailed in H&P this AM by Dr Figueredo
[2023-07-04] MEDS ORDERED: LIDOCAINE 2% LOCAL 50 ML VIAL ONE (12:18)
[2023-07-04] MEDS ORDERED: DEXTROSE 10% 1,000 ML IV PRN (12:55)
--- NOTE | 2023-07-04 14:51 | Operative Report ---
Post Operative Report Pre & Post Diagnosis Infected IV catheter I identified the patient and participated in the time-out.: Yes Procedure Removal of infected tunneled catheter without subcutaneous port Surgeon Gustavo Unger MD Bottom Sprayer None Estimated Blood Loss 20 Findings Consistent with Post-Op Diagnosis Tunnelled catheter Specimens Catheter to culture Anesthesia Type Local Complications None Indications Is a 27-year-old female was counseled on because of infected port and positive blood cultures. Talked about removing this and the risks. She wished to proceed. Description of Procedure Patient was placed in the supine position her right chest was prepped and draped normal sterile fashion. Lidocaine was used to create a local field block. Incision was made with the catheter came out of her skin. The catheter was tugged on and blunt dissection was taken to try and free the catheter from where it was lodged. The catheter was thin and this catheter broke where the to the point was. A counterincision was then made over this area dissection was taken down to identify the to the point which was freed. The proximal catheter was then delivered out of her vein and the entire catheter was removed. The tip of the port was sent for culture interrupted nylons were used to close the counterincision. Sterile dressing was applied. She tolerated procedure well without complications. I attest to the content of the Intraoperative Record and any orders documented therein. Any exceptions are noted below.
--- NOTE | 2023-07-04 15:32 | Infectious Disease Consult ---
Date of Service July 04, 2023 Telehealth Information I performed this visit using a real-time telehealth connection between my location and the patients location ([facility]). After connecting through interactive tele-video, patient was identified by name and date of and/or wristband check.Patient (or authorized healthcare telephone sales representative) was informed that this was a telemedicine visit and it was being conducted confidentially over secure lines. My office door was closed and no one else was present in the room with me.Patient (or authorized healthcare telephone sales representative) provided consent to proceed with the visit, expressed an understanding of privacy and security of the telemedicine visit, and gave permission to have a hospital telephone sales representative in the room in order to assist with the visit and to conduct portions of the visit, as needed. I informed the patient (or authorized healthcare telephone sales representative) that I reviewed their record and presented the opportunity for them to ask any questions regarding the visit today. The patient agreed to participate. Assessment & Plan (1) Bacteremia due to Enterococcus: (2) Central venous catheter in place: (3) On total parenteral nutrition (TPN): (4) Jaqui-Danlos disease: Plan - I agree with the primary team on IV ampicillin. - I would recommend removing the central venous catheter. - Continue to send blood cultures every 48 hours until negative. - Can go ahead and insert another central venous catheter preferably on the contralateral side when the cultures have been negative for at least 72 hours. - Thank you for involving us in the care of Ms. Mccarthy. We will continue to follow. History of Present Illness History of Present Illness Ms. Mccarthy is a 27-year-old young lady with medical history of Jaqui-Danlos disease, GI dysmotility (on TPN through a right chest central line), history of catheter related bloodstream infection with Sarah in June 2021 and pots disease who was admitted to [facility] on 07/03 because of tachycardia. The patient did notice the tachycardia herself (up to 180 bpm) and also experienced fever every time she tried to run the TPN which made her suspect infection and thus the current admission. On presentation, she was afebrile, tachycardic at 152, hypotensive at 91/63 and saturating 95% at room ai r. 4 out of 4 bottles of blood culture sent on admission came back positive for gram-positive cocci in chains, identified as Enterococcus faecalis via bio fire. An echocardiogram was performed early this morning which showed good left ventricular function with no valvular abnormalities. The ID team was consulted for further recommendations and to help with the management of Enterococcus faecalis in the context of central line catheter with chronic TPN. During today's encounter, she mentioned that she has no fever or chills, and no palpitations. Also, no abdominal or UTI symptoms. Allergies Allergy/AdvReac Type Severity Reaction Status Date / Time diphenhydramine Allergy Severe Urticaria, Verified 07/03/23 20:55 [From Benadryl] severe anxiety, jittery iron [From Venofer] Allergy Severe Abdominal Verified 07/03/23 20:55 Pain prochlorperazine Allergy Severe Anaphylaxis Verified 07/03/23 20:55 [From Compazine] adhesive Allergy Intermediate Redness, Verified 07/03/23 20:55 swelling gluten Allergy Intermediate Hives, GI Verified 07/03/23 20:55 upset peanut Allergy Intermediate Itchy Verified 07/03/23 20:55 throat tree nut Allergy Intermediate Itchy Verified 07/03/23 20:55 throat pollen extracts Allergy Mild Itchy Verified 07/03/23 20:55 eyes, sneezing, congestion chlorhexidine Allergy Unknown Unknown Verified 07/03/23 20:55 Latex, Natural Rubber AdvReac Intermediate Redness, Verified 07/03/23 20:55 itchy Home Medications Medication Instructions Recorded Confirmed Type famotidine 20 mg tablet 20 mg PO BID 04/09/21 07/03/23 History fludrocortisone 0.1 mg tablet 0.1 mg PO QAM 04/09/21 07/03/23 History loratadine 10 mg tablet 10 mg PO QAM 04/09/21 07/03/23 History montelukast 10 mg tablet 10 mg PO HS 04/09/21 07/03/23 History (Singulair) ondansetron HCl 8 mg tablet 8 mg PO Q8 PRN Nausea 04/09/21 07/03/23 History linaclotide 145 mcg capsule 145 mcg PO QAM PRN Constipation 01/02/22 07/03/23 History (Linzess) cholecalciferol (vitamin D3) 1,250 1,250 mcg PO WK 01/13/23 07/03/23 History mcg (50,000 unit) capsule granisetron HCl 1 mg tablet 1 mg PO Q12H 05/07/23 07/03/23 History Patient History Medical History Abdominal pain, chronic, epigastric chronic Anemia Central venous catheter in place broke- clamped in ER, taped around site Chronic pain Jaqui-Danlos disease Dx several years ago Gastrointestinal dysmotility Gastroparesis History of COVID-19 02/2022, not hospitalized Jejunostomy tube present placed October 2020 Neuropathy legs On total parenteral nutrition (TPN) POTS (postural orthostatic tachycardia syndrome) Reactive hypoglycemia dexcom present to left arm Severe malnutrition 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 Surgical History H/O wisdom tooth extraction H/O wrist surgery right History of esophagogastroduodenoscopy (EGD) History of myringotomy History of surgery (06/24/21) Removal of Right Tunneled Central Line in Internal Jugular Catheter S/P knee surgery Left Family History Other Adopted Social History Smoking Status: Never smoker Second Hand Exposure: No; Do You Dip or Chew Tobacco: No; Hx Alcohol Use: Yes Alcohol type: hard liquor Hx Substance Use: No Preferred Language: Nepali Communication Ability: Effective Rail Transportation Tabeler Required: No Beliefs That Will Affect Care: None Current Living Situation: Family Current Living Situation Comment: Lives w/ family at home Other Information That Helps Us Care for You: No Feels Safe at Home: Yes Safety Concerns: Feels Safe At This Time Assistive Devices: None Review of Systems Constitutional: Fatigue & chills, but no fever HEENT: no sore throat, no nasal discharge Cardiovascular: no chest pain, or palpitations Respiratory: no shortness of breath, no cough Gastrointestinal: Chronic nausea, but no vomiting, diarrhea or abdominal pain : no dysuria or urgency Musculoskeletal/Skin: No muscle aches or rash Neurologic: no dizziness or headache Physical Exam Couldn't be performed as the consult was conducted via telemed. Results & Data Vital Signs (Past 12 Hours) Vital Signs Temp Pulse Pulse Resp BP Pulse Ox O2 Del Method 07/04/23 11:28 96 H 07/04/23 11:11 37.1 C 114 H 19 93/56 L 96 Room Air 07/04/23 08:33 96 H 07/04/23 07:41 36.9 C 113 H 16 116/78 99 Room Air Laboratory Results Microbiology: 07/03: 4 out of 4 bottles of blood cultures growing gram-positive cocci in chains (identified as Enterococcus faecalis by [employer]) 07/04: Urine culture pending 07/04: 3 sets of blood culture pending 07/04: Culture of central line tip pending Diagnostic Findings TTE performed on 07/04: Normal left ventricular wall thickness with normal left ventricular systolic function with EF 60 to 65%. The right ventricle is normal in size and function. There are no significant valvular abnormalities.
--- NOTE | 2023-07-04 16:04 | Pharmacy Report ---
Pharmacy Initial PN Consult Nt - Date of Service July 04, 2023 - Scope Pharmacy has been consulted on this date to manage parenteral nutrition orders and order appropriate labs. As part of the Nutrition Support Team Guidelines, pharmacy will work in conjunction with dietary when determining the patients caloric needs. - Subjective * The patient is a 27 year old Female admitted on 07/04/23 for TACHYCARDIA. * Patient is to receive parenteral nutrition for chronic TPN. * Pertinent PMHx: * POTS * GI dysfunction * Jaqui Danlos Syndrome - Objective Vascular Access: * Patient currently has a peripheral line, central line (use PPN until cleared to use by ID) * Peripheral line was confirmed by IV Team to be acceptable for PPN use on this date 07/04/23. Height & Weight (Last Documented) Height 5 ft 3 in Weight 47.4 kg Diet Order(s) 07/04/23 Breakfast Diet Intake & Ouput (24hrs) 07/03/23 07/04/23 07/05/23 06:59 06:59 06:59 Intake Total 2099 1340 / 1340 Balance 2099 1340 / 1340 Selected Laboratory Results 07/03/23 07/04/23 18:31 05:46 Sodium 138 137 Potassium 3.6 3.6 Chloride 102 109 H Carbon Dioxide 26 23 Anion Gap 10 5 BUN 16 8 Creatinine 0.79 0.60 Est GFR ( Amer) 120.6 146.8 Est GFR (Non-Af Amer) 104.0 126.7 BUN/Creatinine Ratio 20.3 H 13.3 Glucose 81 127 H Calcium 9.7 8.1 L Phosphorus 2.8 D Magnesium 2.0 1.9 Total Bilirubin 0.7 AST 38 ALT [address] - Initial Nutrition Assessment Start: 07/04/23 09:07 Freq: Status: Active Protocol: Document 07/04/23 09:08 [id number] (Rec: 07/04/23 09:14 [id number]) - Assessment & Plan Assessment: * Appreciate dietitians recommendations for macronutrients. * Priyanka uses cyclic TPN at home over 14 hours and then an additional liter of dextrose afterwards * She reports that she does not tolerate IV multivitamins and does an oral multivitamin with minerals. Ordered multivitamin with minerals, will hold trace elements as well. * She reports that she cannot tolerate more than once weekly lipids (does lipids on Wednesdays) * Discussed with Dr. Osei, will hold on using central line until ID Consult. Aware that her calcium was low today, will repeat tomorrow and add calcium to PPN. Plan: * For Day #1 of PPN administration, the following will be ordered: * Macronutrients: * Amino Acids: 85 grams/day * Dextrose: 100 grams/day * Lipids: 0 grams/day (lipids on Wednesdays) * Additional liter of dextrose after PPN * Micronutrients: * Sodium phosphate: 30 mMol/day * Sodium chloride: 120 mEq/day * Potassium acetate: 120 mEq/day * Magnesium sulfate: 8.12 mEq/day * Calcium gluconate: 9.3 mEq/day * Thiamine: 100 mg/day * Folic Acid: 2 mg/day * Total volume of 2141 mL will be infused over 14 hours and will provide 680 kcal/day * Patient is on PPN which has a maximum mOsm/L of 900. Final osmolarity of current solution is 897 mOsm/L. * Labs will be ordered per PN protocol. * Pharmacy will follow and adjust PN orders on a daily basis. Thank you!
--- NOTE | 2023-07-04 16:45 | Hospitalist Progress Note ---
Date of Service July 04, 2023 Assessment & Plan (1) Bacteremia due to Enterococcus: (2) Sepsis: (3) Tachycardia: Plan: 27-year-old female with past medical history significant for Jaqui-Danlos disease, GI dysmotility currently on TPN, malnutrition, POTS, history of fungemia in June 2021 treated with IV antibiotics and Port-A-Cath exchange, patient is s/p G-tube placement and was on tube feeds for some time but could not tolerate them and currently back on TPN presents with tachycardia. Patient states last couple of days whenever she is try to do TPN heart rate was going up to 180s and spiking temperature and as soon as she unhooked the TPN she was feeling okay. Because of that she could not give her TPN for last couple of days and she is worried about infection and came to the ER. Patient states that she does TPN 2.8 L including normal saline every night for 14 hours after that she gets 1 L of dextrose. She eats 1 small meal every day in the evening. Bacteremia due to Enterococcus Tachycardia likely due to Sepsis Blood cultures growing GPC in chains Blood culture PCR show Enterococcus Antibiotics was changed from zosyn to ampicillin this morning Repeat blood cultures sent earlier were both peripheral I talked to ID Dr Parr who recommend sending a sample of blood culture from central line. Another blood culture was ordered to be drawn from central venous catheter I discussed with Vascular surg Dr Dick who is not available I spoke with Surgeon Dr Unger who plan to remove line Culture of catheter tip sent Continue ampicillin for now per ID Reviewed TTE report. No significant valvular abnormalities I discussed with Pharmacist about doing PPN for now until TPN can be reestablished GI dysmotility Malnutrition Pharmacy on board for PPN for now History of anemia History of IV iron infusions Monitor Hb DVT prophylaxis Heparin subcu Disposition Telemetry floor Full code I spent a total of 65 minutes coordinating, documenting and providing care for this patient excluding time spent in performance of separately billed services Admission and Anticipated Discharge Date Admission Date: July 04, 2023 Subjective 27-year-old female with past medical history significant for Jaqui-Danlos disease, GI dysmotility currently on TPN, malnutrition, POTS, history of fungemia in June 2021 treated with IV antibiotics and Port-A-Cath exchange, s/p G-tube placement and was on tube feeds for some time but could not tolerate them and currently back on TPN who presents with tachycardia and low grade fever at home especially on starting TPN over the past 2 days Currently reports body aches Denied headache, dizziness Reports chronic nausea and upper abd pain. Denied chest pain, cough, SOB Denied dysuria, freq, urgency Denied discharge or tenderness around central line Physical Exam Constitutional: + well hydrated; no acute distress Eyes: PERRL, conjunctivae normal, anicteric sclerae ENMT: external ear and nose normal, oropharynx normal Respiratory: normal respiratory effort, lungs clear to auscultation Cardiovascular: Rate/Rhythm: regular rate and + tachycardic S1 S2 Gastrointestinal (Abdomen): normal bowel sounds, soft, nontender, no hepatosplenomegaly Musculoskeletal: no cyanosis or clubbing, extremities motor strength 5/5 Neurologic: PERRL, EOMI, accommodation nl, no face palsy, no dysarthria Psychiatric: A+Ox3, euthymic affect Results & Data Results & Data Vital Signs (Past 12 Hours) Vital Signs Temp Pulse Pulse Resp BP Pulse Ox O2 Del Method 07/04/23 11:28 96 H 07/04/23 11:11 37.1 C 114 H 19 93/56 L 96 Room Air 07/04/23 08:33 96 H 07/04/23 07:41 36.9 C 113 H 16 116/78 99 Room Air Laboratory Results Abnormal lab results 07/03/23 07/03/23 07/04/23 Range/Units 18:27 18:31 01:47 RBC (4.20-5.40) M/uL Hgb (12.0-16.0) g/dl Hct (37.0-47.0) % MPV 9.1 L (9.4-12.4) fL Lymph # (Auto) 0.87 L (1.20-3.40) K/uL Chloride (98-107) mmol/L BUN/Creatinine Ratio 20.3 H (10-20) Glucose (70-99(Fasting)) mg/dl POC Glucose (70-99) mg/dl Calcium (8.6-10.3) mg/dl ALT 67 H (7-52) U/L Total Protein 8.9 H D (6.0-8.3) gm/dl Urine Appearance Cloudy A (Clear) Ur Specific Welch 1.044 H (1.000-1.030) Urine Ketones 2+ H (Negative) Ur Leukocyte Esterase Trace H (Negative) Urine WBC (Auto) 5-10 H (0-5) /hpf U Epithel Cells (Auto) >30 H (0-5) /lpf Urine Yeast Budding A (None Prsent) Enterococc faecalis PCR DETECTED A (NotDetected) 07/04/23 07/04/23 Range/Units 05:46 12:04 RBC 4.01 L (4.20-5.40) M/uL Hgb 11.9 L (12.0-16.0) g/dl Hct 36.2 L (37.0-47.0) % MPV 9.2 L (9.4-12.4) fL Lymph # (Auto) 1.17 L (1.20-3.40) K/uL Chloride 109 H (98-107) mmol/L BUN/Creatinine Ratio (10-20) Glucose 127 H (70-99(Fasting)) mg/dl POC Glucose 114 H (70-99) mg/dl Calcium 8.1 L (8.6-10.3) mg/dl ALT (7-52) U/L Total Protein (6.0-8.3) gm/dl Urine Appearance (Clear) Ur Specific Welch (1.000-1.030) Urine Ketones (Negative) Ur Leukocyte Esterase (Negative) Urine WBC (Auto) (0-5) /hpf U Epithel Cells (Auto) (0-5) /lpf Urine Yeast (None Prsent) Enterococc faecalis PCR (NotDetected) (2) Sepsis Sepsis type: sepsis due to unspecified organism Sepsis acute organ dy sfunction status: without acute organ dysfunction Qualified Code(s): A41.9 - Sepsis, unspecified organism
[2023-07-04] MEDS: CEROVITE ADV FORMULA TAB PO SCH (17:04)
--- NOTE | 2023-07-04 19:16 | Electrocardiogram Report ---
Test Reason : Blood Pressure : / mmHG Vent. Rate : 124 BPM Atrial Rate : 124 BPM P-R Int : 150 ms QRS Dur : 072 ms QT Int : 316 ms P-R-T Axes : 067 091 010 degrees QTc Int : 453 ms Sinus tachycardia Rightward axis Nonspecific T wave abnormality When compared with ECG of 15-MAY-2022 17:24, No significant change was found Confirmed by Rocco Ayers ([id number]) on 07/04/2023 7:16:12 PM Referred By: REFERRED SELF Confirmed By:Rocco Ayers
--- NOTE | 2023-07-04 19:16 | Electrocardiogram Report ---
Test Reason : Blood Pressure : / mmHG Vent. Rate : 098 BPM Atrial Rate : 098 BPM P-R Int : 158 ms QRS Dur : 076 ms QT Int : 352 ms P-R-T Axes : 064 080 029 degrees QTc Int : 449 ms Normal sinus rhythm Normal ECG When compared with ECG of 04-JUL-2023 01:06, No significant change was found Confirmed by Rocco Ayers ([id number]) on 07/04/2023 7:16:26 PM Referred By: REFERRED SELF Confirmed By:Rocco Ayers
[2023-07-04] MEDS ORDERED: [UNRECOGNIZED DRUG - OTHER] IV SCH (20:00)
[2023-07-04] MEDS ORDERED: PERIPHERAL TPN IV SCH (20:00)
[2023-07-04] MEDS: MONTELUKAST SODIUM 10 MG TABLET PO SCH (20:13)
[2023-07-04] MEDS: TPN RATE CHANGE SCH (22:51)
[2023-07-05] MEDS: AMPICILLIN 2,000 MG in SODIUM CHLOR 0.9% MINI-B 100 ML IV SCH ×6 (00:15→20:39)
[2023-07-05 06:25] LABS: Hematocrit (blood only) 35.2 % (37.0-47.0); Hemoglobin 11.5 g/dl (12.0-16.0); Mean Corpuscular Hemoglobin 29.4 pg (25.0-34.0); Mean Corpuscular Hgb Conc 32.7 g/dL (32.0-36.0); Mean Platelet Volume 9.2 fL (9.4-12.4); Platelet Count 253 K/uL (130-400); RDW Coefficient of Variation 12.7 % (11.5-14.5); RDW Standard Deviation 41.9 fL (36.4-46.3); Red Blood Count 3.91 M/uL (4.20-5.40); White Blood Count 5.17 K/ul (4.8-10.8)
[2023-07-05 06:39] LABS: BUN Creatinine Ratio 19.7 (10-20); Bilirubin,Total 0.4 mg/dl (0.2-1.0); Calcium 8.7 mg/dl (8.6-10.3); Creatinine Clr Calc Pharmacy 109.3 ml/min; Phosphorus 3.4 mg/dl (2.5-4.9)
[2023-07-05] MEDS: HEPARIN SOD 5,000 UNIT/0.5 ML VIAL SQ SCH ×2 (09:32→20:39)
[2023-07-05] MEDS: CEROVITE ADV FORMULA TAB PO SCH (09:36)
[2023-07-05] MEDS: LORATADINE 10 MG TAB PO SCH (09:37)
[2023-07-05] MEDS: FLUDROCORTISONE ACETATE 0.1 MG TAB PO SCH (09:37)
[2023-07-05] MEDS: FAMOTIDINE 20 MG TAB PO SCH ×2 (09:37→20:39)
[2023-07-05] MEDS: DEXTROSE 5% 1,000 ML IV SCH (11:53)
[2023-07-05] MEDS: TPN RATE CHANGE SCH ×2 (12:03→20:59)
--- NOTE | 2023-07-05 16:44 | Hospitalist Progress Note ---
Date of Service July 05, 2023 Assessment & Plan (1) Bacteremia due to Enterococcus: (2) Sepsis: (3) Tachycardia: Plan: 27-year-old female with past medical history significant for Jaqui-Danlos disease, GI dysmotility currently on TPN, malnutrition, POTS, history of fungemia in June 2021 treated with IV antibiotics and Port-A-Cath exchange, patient is s/p G-tube placement and was on tube feeds for some time but could not tolerate them and currently back on TPN presents with tachycardia. Patient states last couple of days whenever she is try to do TPN heart rate was going up to 180s and spiking temperature and as soon as she unhooked the TPN she was feeling okay. Because of that she could not give her TPN for last couple of days and she is worried about infection and came to the ER. Patient states that she does TPN 2.8 L including normal saline every night for 14 hours after that she gets 1 L of dextrose. She eats 1 small meal every day in the evening. Bacteremia due to Enterococcus Tachycardia likely due to Sepsis Patient also has h/o POTS Blood cultures from 07/03/23 growing Probable Enterococcus Blood culture PCR show Enterococcus Repeat blood cultures (peripheral) from 07/04/23 are negative so far Blood culture (from central line) from 07/04/23 is growing Probable Enterococcus Catheter tip culture from 07/04/23 in lab Possible catheter related blood stream infection Central line/catheter removed by Surgeon on 07/04/23 Repeat Blood cultures sent today ID evaluation and recommendations noted Continue ampicillin for now Will follow up final culture results and sensitivities TTE report did not show significant valvular abnormalities GI dysmotility Malnutrition Pharmacy on board for PPN for now Patient reports trial of PEG use even with 10cc of fluid recently had been associated with severe GI symptoms No PEG tube use for now. Will defer that to patient's GI/[employer] outpatient Patient will need a line/central line once active infection is managed for her TPN History of anemia History of IV iron infusions Hb is 11.5 today. Monitor Hb DVT prophylaxis Heparin subcu Disposition Telemetry floor Full code Updated patient and parents who were at bedside I spent a total of 55 minutes coordinating, documenting and providing care for this patient excluding time spent in performance of separately billed services Admission and Anticipated Discharge Date Admission Date: July 04, 2023 Subjective Patient seen and examined Reports feeling better today No body aches, headache, dizziness Reports chronic nausea and upper abd pain unchanged. Denied chest pain, cough, SOB Denied dysuria, freq, urgency Denied fever or chills Physical Exam Constitutional: + well hydrated; no acute distress Eyes: PERRL, conjunctivae normal, anicteric sclerae ENMT: external ear and nose normal, oropharynx normal Respiratory: normal respiratory effort, lungs clear to auscultation Cardiovascular: Rate/Rhythm: regular rate and + tachycardic S1 S2 Gastrointestinal (Abdomen): normal bowel sounds, soft, nontender, no hepatosplenomegaly PEG in situ Musculoskeletal: no cyanosis or clubbing, extremities motor strength 5/5 Neurologic: PERRL, EOMI, accommodation nl, no face palsy, no dysarthria Psychiatric: A+Ox3, euthymic affect Results & Data Results & Data Vital Signs (Past 12 Hours) Vital Signs Temp Pulse Pulse Resp BP Pulse Ox O2 Del Method 07/05/23 12:00 36.9 C 100 H 20 87/54 L 99 Room Air 07/05/23 10:24 90 07/05/23 08:15 Room Air 07/05/23 08:00 36.8 C 115 H 20 102/73 Room Air Laboratory Results Abnormal lab results 07/04/23 07/05/23 07/05/23 Range/Units 20:24 05:41 12:01 RBC 3.91 L (4.20-5.40) M/uL Hgb 11.5 L (12.0-16.0) g/dl Hct 35.2 L (37.0-47.0) % MPV 9.2 L (9.4-12.4) fL Chloride 108 H (98-107) mmol/L Glucose 111 H (70-99(Fasting)) mg/dl POC Glucose 104 H 179 H (70-99) mg/dl (2) Sepsis Sepsis type: sepsis due to unspecified organism Sepsis acute organ dysfunction status: without acute organ dysfunction Qualified Code(s): A41.9 - Sepsis, unspecified organism
[2023-07-05] MEDS ORDERED: [UNRECOGNIZED DRUG - OTHER] IV SCH (20:00)
[2023-07-05] MEDS ORDERED: PERIPHERAL TPN IV SCH (20:00)
[2023-07-05] MEDS: MONTELUKAST SODIUM 10 MG TABLET PO SCH (20:39)
[2023-07-06] MEDS: AMPICILLIN 2,000 MG in SODIUM CHLOR 0.9% MINI-B 100 ML IV SCH ×6 (01:00→21:09)
[2023-07-06 06:11] LABS: Hematocrit (blood only) 35.2 % (37.0-47.0); Hemoglobin 11.7 g/dl (12.0-16.0); Mean Corpuscular Hemoglobin 29.2 pg (25.0-34.0); Mean Corpuscular Hgb Conc 33.2 g/dL (32.0-36.0); Mean Corpuscular Volume 87.8 fL (80.0-100.0); Mean Platelet Volume 9.5 fL (9.4-12.4); Platelet Count 274 K/uL (130-400); RDW Coefficient of Variation 12.7 % (11.5-14.5); RDW Standard Deviation 40.6 fL (36.4-46.3); Red Blood Count 4.01 M/uL (4.20-5.40); White Blood Count 5.26 K/ul (4.8-10.8)
[2023-07-06 06:21] LABS: Anion Gap 4 (3-11); BUN Creatinine Ratio 35.8 (10-20); Blood Urea Nitrogen 19 mg/dl (6-23); Calcium 8.7 mg/dl (8.6-10.3); Carbon Dioxide 25 mmol/L (21-32); Chloride 108 mmol/L (98-107); Creatinine Clr Calc Pharmacy 125.8 ml/min; Est GFR (African American) > 150.0 ml/min; Glucose 103 mg/dl (70-99(Fasting)); Magnesium 2.1 mg/dl (1.7-2.4); Phosphorus 4.2 mg/dl (2.5-4.9); Potassium 4.3 mmol/L (3.5-5.1); Sodium 137 mmol/L (136-145)
[2023-07-06] MEDS: HEPARIN SOD 5,000 UNIT/0.5 ML VIAL SQ SCH ×2 (10:15→20:11)
[2023-07-06] MEDS: DEXTROSE 5% 1,000 ML IV SCH (10:15)
[2023-07-06] MEDS: FAMOTIDINE 20 MG TAB PO SCH ×2 (10:16→20:10)
[2023-07-06] MEDS: CEROVITE ADV FORMULA TAB PO SCH (10:16)
[2023-07-06] MEDS: FLUDROCORTISONE ACETATE 0.1 MG TAB PO SCH (10:16)
[2023-07-06] MEDS: LORATADINE 10 MG TAB PO SCH (10:16)
[2023-07-06] MEDS: TPN RATE CHANGE SCH ×2 (10:17→21:10)
--- NOTE | 2023-07-06 13:25 | Hospitalist Progress Note ---
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 Patient states last couple of days whenever she is try to do TPN heart rate was going up to 180s and spiking temperature and as soon as she unhooked the TPN she was feeling okay. Because of that she could not give her TPN for last couple of days and she is worried about infection and came to the ER. Patient states that she does TPN 2.8 L including normal saline every night for 14 hours after that she gets 1 L of dextrose. She eats 1 small meal every day in the evening. Bacteremia due to Enterococcus Tachycardia likely due to Sepsis Patient also has h/o POTS Blood cultures from 07/03/23 growing Probable Enterococcus Blood culture PCR show Enterococcus Repeat blood cultures (peripheral) from 07/04/23 and 07/05/23 are negative so far Blood culture (from central line) from 07/04/23 is growing Probable Enterococcus Catheter tip culture from 07/04/23 growing Probable Enterococus and CONS Possible catheter related blood stream infection Central line/catheter removed by Surgeon on 07/04/23 ID evaluation and recommendations noted CONS likely contaminant ID recommends continuing ampicillin for now Will follow up final culture results and sensitivities TTE report did not show significant valvular abnormalities GI dysmotility Malnutrition Pharmacy on board for PPN for now Patient reports trial of PEG use even with 10cc of fluid recently had been associated with severe GI symptoms No PEG tube use for now. Will defer that to patient's GI/[facility] outpatient Patient will need a line/central line once active infection is managed for her TPN History of anemia History of IV iron infusions Hb is 11.7 today. Monitor Hb DVT prophylaxis Heparin subcu Disposition Telemetry floor Full code Updated patient and parents who were at bedside I spent a total of 50 minutes coordinating, documenting and providing care for this patient excluding time spent in performance of separately billed services Admission and Anticipated Discharge Date Admission Date: July 04, 2023 Subjective Patient seen and examined Reports no new complaints today Reports chronic nausea and abd pain unchanged. Denied chest pain, cough, SOB Denied dysuria, freq, urgency Denied fever or chills Physical Exam Constitutional: + well hydrated; no acute distress Eyes: PERRL, conjunctivae normal, anicteric sclerae ENMT: external ear and nose normal, oropharynx normal Respiratory: normal respiratory effort, lungs clear to auscultation Cardiovascular: Rate/Rhythm: regular rate and regular rhythm S1 S2 Gastrointestinal (Abdomen): normal bowel sounds, soft, nontender, no hepatosplenomegaly Musculoskeletal: no cyanosis or clubbing, extremities motor strength 5/5 Neurologic: PERRL, EOMI, accommodation nl, no face palsy, no dysarthria Psychiatric: A+Ox3, euthymic affect Results & Data Results & Data Vital Signs (Past 12 Hours) Vital Signs Temp Pulse Pulse Resp BP Pulse Ox O2 Del Method 07/06/23 11:00 36.7 C 98 H 18 98/56 L 97 Room Air 07/06/23 09:00 77 07/06/23 08:58 36.6 C 96 H 20 111/72 96 Room Air 07/06/23 08:01 Room Air 07/06/23 03:42 36.4 C L 84 18 100/67 97 Room Air Laboratory Results Abnormal lab results 07/06/23 Range/Units 05:18 RBC 4.01 L (4.20-5.40) M/uL Hgb 11.7 L (12.0-16.0) g/dl Hct 35.2 L (37.0-47.0) % Chloride 108 H (98-107) mmol/L Creatinine 0.53 L (0.6-1.2) mg/dl BUN/Creatinine Ratio 35.8 H (10-20) Glucose 103 H (70-99(Fasting)) mg/dl (2) Sepsis Sepsis type: sepsis due to unspecified organism Sepsis acute organ dysfunction status: without acute organ dysfunction Qualified Code(s): A41.9 - Sepsis, unspecified organism
[2023-07-06] MEDS ORDERED: [UNRECOGNIZED DRUG - OTHER] IV SCH (20:00)
[2023-07-06] MEDS ORDERED: PERIPHERAL TPN IV SCH (20:00)
[2023-07-06] MEDS: MONTELUKAST SODIUM 10 MG TABLET PO SCH (20:10)
--- NOTE | 2023-07-06 20:31 | Electrocardiogram Report ---
Test Reason : Blood Pressure : / mmHG Vent. Rate : 091 BPM Atrial Rate : 091 BPM P-R Int : 138 ms QRS Dur : 074 ms QT Int : 350 ms P-R-T Axes : 070 076 029 degrees QTc Int : 430 ms Poor data quality, interpretation may be adversely affected Normal sinus rhythm Normal ECG When compared with ECG of 04-JUL-2023 05:35, No significant change was found Confirmed by Raj Zuñiga ([id number]) on 07/06/2023 8:30:59 PM Referred By: REFERRED SELF Confirmed By:Raj Zuñiga
[2023-07-07] MEDS: AMPICILLIN 2,000 MG in SODIUM CHLOR 0.9% MINI-B 100 ML IV SCH ×6 (00:06→21:00)
[2023-07-07 05:21] LABS: Hematocrit (blood only) 35.6 % (37.0-47.0); Hemoglobin 11.4 g/dl (12.0-16.0); Mean Corpuscular Hemoglobin 28.9 pg (25.0-34.0); Mean Corpuscular Volume 90.4 fL (80.0-100.0); Mean Platelet Volume 9.4 fL (9.4-12.4); Platelet Count 290 K/uL (130-400); RDW Coefficient of Variation 12.5 % (11.5-14.5); RDW Standard Deviation 41.1 fL (36.4-46.3); Red Blood Count 3.94 M/uL (4.20-5.40)
[2023-07-07 05:26] LABS: BUN Creatinine Ratio 26.9 (10-20); Calcium 8.8 mg/dl (8.6-10.3); Creatinine Clr Calc Pharmacy 99.5 ml/min; Est GFR (African American) 141.6 ml/min; Est GFR (Non-African American) 122.2 ml/min; Magnesium 2.3 mg/dl (1.7-2.4); Phosphorus 3.3 mg/dl (2.5-4.9); Potassium 4.1 mmol/L (3.5-5.1)
--- NOTE | 2023-07-07 06:23 | Electrocardiogram Report ---
Test Reason : Blood Pressure : / mmHG Vent. Rate : 078 BPM Atrial Rate : 078 BPM P-R Int : 146 ms QRS Dur : 072 ms QT Int : 392 ms P-R-T Axes : 068 075 028 degrees QTc Int : 446 ms Normal sinus rhythm Normal ECG When compared with ECG of 05-JUL-2023 06:31, (unconfirmed) No significant change was found Confirmed by Raj Zuñiga ([id number]) on 07/07/2023 6:22:57 AM Referred By: REFERRED SELF Confirmed By:Raj Zuñiga
[2023-07-07] MEDS: TPN RATE CHANGE SCH ×2 (09:15→21:52)
[2023-07-07] MEDS: FAMOTIDINE 20 MG TAB PO SCH ×2 (09:41→20:01)
[2023-07-07] MEDS: FLUDROCORTISONE ACETATE 0.1 MG TAB PO SCH (09:41)
[2023-07-07] MEDS: CEROVITE ADV FORMULA TAB PO SCH (09:42)
[2023-07-07] MEDS: LORATADINE 10 MG TAB PO SCH (09:42)
[2023-07-07] MEDS: HEPARIN SOD 5,000 UNIT/0.5 ML VIAL SQ SCH ×2 (09:44→20:02)
[2023-07-07] MEDS: DEXTROSE 5% 1,000 ML IV SCH (10:16)
--- NOTE | 2023-07-07 12:29 | Hospitalist Progress Note ---
Date of Service July 07, 2023 Assessment & Plan (1) Bacteremia due to Enterococcus: (2) Sepsis: (3) Tachycardia: Plan: 27-year-old female with past medical history significant for Jaqui-Danlos disease, GI dysmotility currently on TPN, malnutrition, POTS, history of fungemia in June 2021 treated with IV antibiotics and Port-A-Cath exchange, patient is s/p G-tube placement and was on tube feeds for some time but could not tolerate them and currently back on TPN presents with tachycardia. Patient states last couple of days whenever she is try to do TPN heart rate was going up to 180s and spiking temperature and as soon as she unhooked the TPN she was feeling okay. Because of that she could not give her TPN for last couple of days and she is worried about infection and came to the ER. Patient states that she does TPN 2.8 L including normal saline every night for 14 hours after that she gets 1 L of dextrose. She eats 1 small meal every day in the evening. Bacteremia due to Enterococcus Tachycardia likely due to Sepsis Patient also has h/o POTS Blood cultures from 07/03/23 growing Probable Enterococcus Blood culture PCR show Enterococcus Repeat blood cultures (peripheral) from 07/04/23 and 07/05/23 are negative so far Blood culture (from central line) from 07/04/23 is growing Probable Enterococcus Catheter tip culture from 07/04/23 growing Probable Enterococus and CONS Possible catheter related blood stream infection Central line/catheter removed by Surgeon on 07/04/23 ID evaluation and recommendations noted CONS likely contaminant ID recommends continuing ampicillin for now TTE report did not show significant valvular abnormalities Will follow up with ID prior to putting back central line for TPN and final antibiotics recs GI dysmotility Severe Malnutrition Pharmacy on board for PPN for now Patient reports trial of PEG use even with 10cc of fluid recently had been associated with severe GI symptoms No PEG tube use for now. Will defer that to patient's GI/[facility] outpatient Patient will need a line/central line once active infection is managed for her TPN History of anemia History of IV iron infusions Hb is 11.4 today. Monitor Hb DVT prophylaxis Heparin subcu Disposition Telemetry floor Full code Updated patient and family who were at bedside I spent a total of 45 minutes coordinating, documenting and providing care for this patient excluding time spent in performance of separately billed services Admission and Anticipated Discharge Date Admission Date: July 04, 2023 Subjective Patient seen and examined No new complaints Has chronic nausea and abd pain Physical Exam Constitutional: + well hydrated; no acute distress Eyes: PERRL, conjunctivae normal, anicteric sclerae ENMT: external ear and nose normal, oropharynx normal Respiratory: normal respiratory effort, lungs clear to auscultation Cardiovascular: Rate/Rhythm: regular rate and regular rhythm S1 S2 Gastrointestinal (Abdomen): normal bowel sounds, soft, nontender, no hepatosplenomegaly Musculoskeletal: no cyanosis or clubbing, extremities motor strength 5/5 Neurologic: PERRL, EOMI, accommodation nl, no face palsy, no dysarthria Psychiatric: A+Ox3, euthymic affect Results & Data Results & Data Vital Signs (Past 12 Hours) Vital Signs Temp Pulse Pulse Resp BP Pulse Ox O2 Del Method 07/07/23 09:00 98 H 07/07/23 08:53 36.5 C 84 18 87/55 L 98 Room Air 07/07/23 03:33 36.4 C L 83 16 106/72 97 Room Air Laboratory Results Abnormal lab results 07/07/23 07/07/23 Range/Units 02:30 04:25 RBC 3.94 L (4.20-5.40) M/uL Hgb 11.4 L (12.0-16.0) g/dl Hct 35.6 L (37.0-47.0) % Chloride 108 H (98-107) mmol/L BUN/Creatinine Ratio 26.9 H (10-20) POC Glucose 101 H (70-99) mg/dl (2) Sepsis Sepsis type: sepsis due to unspecified organism Sepsis acute organ dys function status: without acute organ dysfunction Qualified Code(s): A41.9 - Sepsis, unspecified organism
[2023-07-07] MEDS ORDERED: [UNRECOGNIZED DRUG - OTHER] IV SCH (20:00)
[2023-07-07] MEDS ORDERED: PERIPHERAL TPN IV SCH (20:00)
[2023-07-07] MEDS: MONTELUKAST SODIUM 10 MG TABLET PO SCH (20:01)
[2023-07-08] MEDS: AMPICILLIN 2,000 MG in SODIUM CHLOR 0.9% MINI-B 100 ML IV SCH ×6 (00:05→20:08)
[2023-07-08 04:44] LABS: BUN Creatinine Ratio 35.2 (10-20); Calcium 8.8 mg/dl (8.6-10.3); Creatinine Clr Calc Pharmacy 91.8 ml/min; Est GFR (African American) 137.2 ml/min; Est GFR (Non-African American) 118.4 ml/min; Magnesium 2.1 mg/dl (1.7-2.4); Phosphorus 3.7 mg/dl (2.5-4.9); Potassium 4.1 mmol/L (3.5-5.1)
[2023-07-08] MEDS: HEPARIN SOD 5,000 UNIT/0.5 ML VIAL SQ SCH (09:20)
[2023-07-08] MEDS: FAMOTIDINE 20 MG TAB PO SCH ×2 (09:21→20:09)
[2023-07-08] MEDS: LORATADINE 10 MG TAB PO SCH (09:23)
[2023-07-08] MEDS: FLUDROCORTISONE ACETATE 0.1 MG TAB PO SCH (09:25)
[2023-07-08] MEDS: CEROVITE ADV FORMULA TAB PO SCH (09:26)
[2023-07-08] MEDS: TPN RATE CHANGE SCH ×2 (09:26→21:00)
--- NOTE | 2023-07-08 10:31 | Communication Note ---
Date of Service: July 08, 2023 Laboratory Results Microbiology: 07/03: 4 out of 4 bottles of blood cultures growing gram-positive cocci in chains (identified as Enterococcus faecalis by [facility]) 07/04: Urine culture pending 07/04: 1/6 bottles of blood culture growing enterococcus 07/04: Culture of central line tip growing CoNS and enterococcus 07/05: 2 sets of blood Cx negative to date Diagnostic Findings TTE performed on 07/04: Normal left ventricular wall thickness with normal left ventricular systolic function with EF 60 to 65%. The right ventricle is normal in size and function. There are no significant valvular abnormalities. Assessment & Plan (1) Bacteremia due to Enterococcus - CRBSI (2) Central venous catheter in place (removed on 07/04) (3) On total parenteral nutrition (TPN) (4) Jaqui-Danlos disease: Plan - Please continue on IV ampicillin for a total of 14 days from the first neg blood Cx. Last day of antibiotics will be Jul 18, 2023. - At this point, Can go ahead and insert another central venous catheter preferably on the contralateral side. - Thank you for involving us in the care of Ms. Mccarthy. We will sign off for now.
[2023-07-08] MEDS: DEXTROSE 5% 1,000 ML IV SCH (10:36)
--- NOTE | 2023-07-08 12:47 | Hospitalist Progress Note ---
Date of Service July 08, 2023 Assessment & Plan (1) Bacteremia due to Enterococcus: (2) Sepsis: (3) Tachycardia: Plan: 27-year-old female with past medical history significant for Jaqui-Danlos disease, GI dysmotility currently on TPN, malnutrition, POTS, history of fungemia in June 2021 treated with IV antibiotics and Port-A-Cath exchange, patient is s/p G-tube placement and was on tube feeds for some time but could not tolerate them and currently back on TPN presents with tachycardia. Patient states last couple of days whenever she is try to do TPN heart rate was going up to 180s and spiking temperature and as soon as she unhooked the TPN she was feeling okay. Because of that she could not give her TPN for last couple of days and she is worried about infection and came to the ER. Patient states that she does TPN 2.8 L including normal saline every night for 14 hours after that she gets 1 L of dextrose. She eats 1 small meal every day in the evening. Bacteremia due to Enterococcus Tachycardia likely due to Sepsis Patient also has h/o POTS Blood cultures from 07/03/23 growing Probable Enterococcus Blood culture PCR show Enterococcus Repeat blood cultures (peripheral) from 07/04/23 and 07/05/23 are negative so far Blood culture (from central line) from 07/04/23 is growing Probable Enterococcus Catheter tip culture from 07/04/23 growing Probable Enterococus and CONS Possible catheter related blood stream infection Central line/catheter removed by Surgeon on 07/04/23 ID evaluation and recommendations noted CONS likely contaminant TTE report did not show significant valvular abnormalities Blood culture from 07/05/23 remain negative Discussed with ID Dr Parr. Final recs: IV ampicillin till 07/18/23 to complete 14 days from negative culture. Script given to [facility] Gen surg consulted for Port placement for IV antibiotics and also patient is TPN dependent NPO PMN for port placement tomorrow GI dysmotility Severe Malnutrition Pharmacy on board for PPN for now Patient reports trial of PEG use even with 10cc of fluid recently had been associated with severe GI symptoms No PEG tube use for now. Will defer that to patient's GI/[facility] outpatient Patient will need a line/central line once active infection is managed for her TPN History of anemia History of IV iron infusions Hb stable Monitor Hb DVT prophylaxis Heparin subcu stopped for OR tomorrow Disposition Telemetry floor Full code Patient can be discharged once port is placed and home antibiotics arranged I spent a total of 45 minutes coordinating, documenting and providing care for this patient excluding time spent in performance of separately billed services Admission and Anticipated Discharge Date Admission Date: July 04, 2023 Subjective Patient seen and examined No new complaints Has chronic nausea and abd pain Physical Exam Constitutional: + well hydrated; no acute distress Eyes: PERRL, conjunctivae normal, anicteric sclerae ENMT: external ear and nose normal, oropharynx normal Respiratory: normal respiratory effort, lungs clear to auscultation Cardiovascular: Rate/Rhythm: regular rate and regular rhythm S1 S2 Gastrointestinal (Abdomen): normal bowel sounds, soft, nontender, no hepatosplenomegaly Musculoskeletal: no cyanosis or clubbing, extremities motor strength 5/5 Neurologic: PERRL, EOMI, accommodation nl, no face palsy, no dysarthria Psychiatric: A+Ox3, euthymic affect Results & Data Results & Data Vital Signs (Past 12 Hours) Vital Signs Temp Pulse Resp BP Pulse Ox O2 Del Method 07/08/23 10:54 36.5 C 92 H 17 108/71 95 Room Air 07/08/23 10:51 Room Air 07/08/23 08:03 36.5 C 82 18 91/57 L 96 Room Air 07/08/23 04:17 36.3 C L 89 20 102/68 97 Room Air Laboratory Results Abnormal lab results 07/08/23 Range/Units 03:34 Chloride 108 H (98-107) mmol/L BUN 25 H (6-23) mg/dl BUN/Creatinine Ratio 35.2 H (10-20) (2) Sepsis Sepsis type: sepsis due to unspecified organism Sepsis acute organ dysfunction status: without acute organ dysfunction Qualified Code(s): A41.9 - Sepsis, unspecified organism
--- NOTE | 2023-07-08 12:54 | Surgery Consultation ---
Date of Consultation July 08, 2023 Assessment & Plan (1) Central venous catheter in place: Assessment: Patient is 27 years old female's past medical history is significant for Jaqui-Danlos disease, gastrointestinal dysmotility, sepsis, bacteremia, on TPN. and G-tube feeds, Fungemia and Iron deficiency. pt was admitted to hospital for infected IV catheter. Patient had the IV catheter removal on July [address] Unger. The tip of catheter culture positive for Coag negative Staphylococcus, and probable Enterococcus. now pt feels better, pt needs IV access for treat infection and TPN. Hospitalist requested to consult me for place port catheter. Plan: I recommend to do place port- catheter insertion under sedation + local anesthesia. I discussion with the patient about the benefit the risk and alternate of the procedure I indicated the risks may include but not limited such as a bleeding, infection, injury other organ, blood clot, and dysfunction catheter. patient understood. she agreed to proceed the procedure. she signed informed consent. I answered all questions. History of Present Illness Reason for Consultation: place port catheter Requesting Physician: Alexus Osei MD Attending Physician: Alexus Osei MD History of Present Illness CC: need port catheter HPI: Patient is 27 years old female's past medical history is significant for Jaqui-Danlos disease, gastrointestinal dysmotility, sepsis, bacteremia, on TPN. and G-tube feeds, Fungemia and Iron deficiency. pt was admitted to hospital for infected IV catheter. Patient had the IV catheter removal on July [address] Unger. The tip of catheter culture positive for Coag negative Staphylococcus, and probable Enterococcus. now pt feels better, pt needs IV access for treat infection and TPN. Hospitalist requested to consult me for place port catheter. pt denies fever, no chills. Allergies Allergy/AdvReac Type Severity Reaction Status Date / Time diphenhydramine Allergy Severe Urticaria, Verified 07/03/23 20:55 [From Benadryl] severe anxiety, jittery iron [From Venofer] Allergy Severe Abdominal Verified 07/03/23 20:55 Pain prochlorperazine Allergy Severe Anaphylaxis Verified 07/03/23 20:55 [From Compazine] adhesive Allergy Intermediate Redness, Verified 07/03/23 20:55 swelling gluten Allergy Intermediate Hives, GI Verified 07/03/23 20:55 upset peanut Allergy Intermediate Itchy Verified 07/03/23 20:55 throat tree nut Allergy Intermediate Itchy Verified 07/03/23 20:55 throat pollen extracts Allergy Mild Itchy Verified 07/03/23 20:55 eyes, sneezing, congestion chlorhexidine Allergy Unknown Unknown Verified 07/03/23 20:55 Latex, Natural Rubber AdvReac Intermediate Redness, Verified 07/03/23 20:55 itchy Home Medications Medication Instructions Recorded Confirmed Type famotidine 20 mg tablet 20 mg PO BID 04/09/21 07/03/23 History fludrocortisone 0.1 mg tablet 0.1 mg PO QAM 04/09/21 07/03/23 History loratadine 10 mg tablet 10 mg PO QAM 04/09/21 07/03/23 History montelukast 10 mg tablet 10 mg PO HS 04/09/21 07/03/23 History (Singulair) ondansetron HCl 8 mg tablet 8 mg PO Q8 PRN Nausea 04/09/21 07/03/23 History linaclotide 145 mcg capsule 145 mcg PO QAM PRN Constipation 01/02/22 07/03/23 History (Linzess) cholecalciferol (vitamin D3) 1,250 1,250 mcg PO WK 01/13/23 07/03/23 History mcg (50,000 unit) capsule granisetron HCl 1 mg tablet 1 mg PO Q12H 05/07/23 07/03/23 History Patient History Medical History Abdominal pain, chronic, epigastric chronic Anemia Central venous catheter in place broke- clamped in ER, taped around site Chronic pain Jaqui-Danlos disease Dx several years ago Gastrointestinal dysmotility Gastroparesis History of COVID-19 02/2022, not hospitalized Jejunostomy tube present placed October 2020 Neuropathy legs On total parenteral nutrition (TPN) POTS (postural orthostatic tachycardia syndrome) Reactive hypoglycemia dexcom present to left arm Severe malnutrition 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 Surgical History H/O wisdom tooth extraction H/O wrist surgery right History of esophagogastroduodenoscopy (EGD) History of myringotomy History of surgery (06/24/21) Removal of Right Tunneled Central Line in Internal Jugular Catheter S/P knee surgery Left Family History Other Adopted Social History Smoking Status: Never smoker Second Hand Exposure: No; Do You Dip or Chew Tobacco: No; Hx Alcohol Use: Yes Alcohol type: hard liquor Hx Substance Use: No Preferred Language: [place]an Communication Ability: Effective Fisher Crab Required: No Beliefs That Will Affect Care: None Current Living Situation: Family Current Living Situation Comment: Lives w/ family at home Other Information That Helps Us Care for You: No Feels Safe at Home: Yes Safety Concerns: Feels Safe At This Time Assistive Devices: None Review of Systems Constitutional: as per Subjective / HPI Eyes: as per Subjective / HPI Respiratory: as per Subjective / HPI Cardiovascular: as per Subjective / HPI Gastrointestinal: gastrointestinal dysmotility Musculoskeletal: Jaqui-Danlos disease Neurologic: as per Subjective / HPI Psychiatric: as per Subjective / HPI Endocrine: as per Subjective / HPI Hematologic / Lymphatic: as per Subjective / HPI Physical Exam Constitutional: WD/WN, vitals as above Eyes: PERRL, conjunctivae normal, anicteric sclerae Neck: trachea midline, no thyromegaly Respiratory: normal respiratory effort, lungs clear to auscultation Cardiovascular: RRR, no murmur, no edema Gastrointestinal (Abdomen): soft, NT, ND, Neurologic: patellar DTR's 2+ bilat, sensation intact Psychiatric: A+Ox3, euthymic affect Results & Data Vital Signs (Past 12 Hours) Vital Signs Temp Pulse Resp BP Pulse Ox O2 Del Method 07/08/23 10:54 36.5 C 92 H 17 108/71 95 Room Air 07/08/23 10:51 Room Air 07/08/23 08:03 36.5 C 82 18 91/57 L 96 Room Air 07/08/23 04:17 36.3 C L 89 20 102/68 97 Room Air Laboratory Results Lab Results 07/03/23 07/03/23 07/03/23 Range/Units 18:27 18:31 18:34 WBC 5.89 (4.8-10.8) K/ul RBC 5.02 (4.20-5.40) M/uL Hgb 14.6 (12.0-16.0) g/dl Hct 45.4 (37.0-47.0) % MCV 90.4 (80.0-100.0) fL MCH 29.1 (25.0-34.0) pg MCHC 32.2 (32.0-36.0) g/dL RDW Std Deviation 41.2 (36.4-46.3) fL RDW Coeff of Priscilla 12.6 (11.5-14.5) % Plt Count 316 (130-400) K/uL MPV 9.1 L (9.4-12.4) fL Immature Gran % (Auto) 0.3 % Neut % (Auto) 79.4 % Lymph % (Auto) 14.8 % [place] % (Auto) 5.1 % Eos % (Auto) 0.2 % Baso % (Auto) 0.2 % Neut # (Auto) 4.68 (1.40-6.50) K/uL Lymph # (Auto) 0.87 L (1.20-3.40) K/uL [place] # (Auto) 0.30 (0.11-0.59) K/uL Eos # (Auto) 0.01 (0.00-0.50) K/uL Baso # (Auto) 0.01 (0.00-0.20) K/uL Immature Gran # (Auto) 0.02 (0.01-0.20) K/uL Sodium 138 (136-145) mmol/L Potassium 3.6 (3.5-5.1) mmol/L Chloride 102 (98-107) mmol/L Carbon Dioxide 26 (21-32) mmol/L Anion Gap 10 (3-11) BUN 16 (6-23) mg/dl Creatinine 0.79 (0.6-1.2) mg/dl Est Cr Clr Drug Dosing 79.9 ml/min Est GFR ( Amer) 120.6 ml/min Est GFR (Non-Af Amer) 104.0 ml/min BUN/Creatinine Ratio 20.3 H (10-20) Glucose 81 (70-99(Fasting)) mg/dl POC Glucose (70-99) mg/dl Lactate 1.3 (0.4-2.0) mmol/L Calcium 9.7 (8.6-10.3) mg/dl Phosphorus (2.5-4.9) mg/dl Magnesium 2.0 (1.7-2.4) mg/dl Total Bilirubin 0.7 (0.2-1.0) mg/dl Direct Bilirubin 0.1 (0-0.2) mg/dl AST 38 (13-39) U/L ALT 67 H (7-52) U/L Alkaline Phosphatase 99 (34-104) U/L Troponin I High Sens 3.5 (0-14) pg/ml Total Protein 8.9 H D (6.0-8.3) gm/dl Albumin 5.0 (3.4-5.0) gm/dl Procalcitonin 0.08 (0-0.5) ng/ml Urine Color Urine Appearance (Clear) Urine pH (4.5-7.5) Ur Specific [place] (1.000-1.030) Urine Protein (Negative) Urine Glucose (UA) (Negative) Urine Ketones (Negative) Urine Blood (Negative) Urine Nitrite (Negative) Urine Bilirubin (Negative) Urine Urobilinogen (Negative) Ur Leukocyte Esterase (Negative) Urine WBC (Auto) (0-5) /hpf Urine RBC (Auto) (0-4) /hpf U Hyaline Cast (Auto) (0-5) /lpf U Epithel Cells (Auto) (0-5) /lpf Urine Bacteria (Auto) (Negative) Urine Yeast (None Prsent) Adenovirus (PCR) Not Detected (NotDetected) B. pertussis DNA (PCR) Not Detected (NotDetected) B.parapertussis DNA PCR Not Detected (NotDetected) C. pneumoniae DNA (PCR) Not Detected (NotDetected) Coronavirus OC43 (PCR) Not Detected (NotDetected) Coronavirus HKU1 (PCR) Not Detected (NotDetected) Coronavirus 229E (PCR) Not Detected (NotDetected) SARS-CoV-2 (PCR) Not Detected (NotDetected) Coronavirus NL63 (PCR) Not Detected (NotDetected) Enterococc faecalis PCR DETECTED A (NotDetected) Human Metapneumovir PCR Not Detected (NotDetected) Influenza Type A (PCR) Not Detected (NotDetected) Influenza Type B (PCR) Not Detected (NotDetected) M. pneumoniae (PCR) Not Detected (NotDetected) Parainfluenza 1 (PCR) Not Detected (NotDetected) Parainfluenza 2 (PCR) Not Detected (NotDetected) Parainfluenza 3 (PCR) Not Detected (NotDetected) Parainfluenza 4 (PCR) Not Detected (NotDetected) RSV (PCR) Not Detected (NotDetected) Entero/Rhino (PCR) Not Detected (NotDetected) Opal/B-Vanco Res Genes VRE Not Detected (NotDetected) Bld Cult ID Panel PCR See PCR Comment (NotDetected) 07/04/23 07/04/23 07/04/23 Range/Units 01:47 05:46 12:04 WBC 5.26 (4.8-10.8) K/ul RBC 4.01 L (4.20-5.40) M/uL Hgb 11.9 L (12.0-16.0) g/dl Hct 36.2 L (37.0-47.0) % MCV 90.3 (80.0-100.0) fL MCH 29.7 (25.0-34.0) pg MCHC 32.9 (32.0-36.0) g/dL RDW Std Deviation 42.1 (36.4-46.3) fL RDW Coeff of Priscilla 12.6 (11.5-14.5) % Plt Count 252 (130-400) K/uL MPV 9.2 L (9.4-12.4) fL Immature Gran % (Auto) 0.4 % Neut % (Auto) 71.9 % Lymph % (Auto) 22.2 % [place] % (Auto) 4.9 % Eos % (Auto) 0.2 % Baso % (Auto) 0.4 % Neut # (Auto) 3.78 (1.40-6.50) K/uL Lymph # (Auto) 1.17 L (1.20-3.40) K/uL [place] # (Auto) 0.26 (0.11-0.59) K/uL Eos # (Auto) 0.01 (0.00-0.50) K/uL Baso # (Auto) 0.02 (0.00-0.20) K/uL Immature Gran # (Auto) 0.02 (0.01-0.20) K/uL Sodium 137 (136-145) mmol/L Potassium 3.6 (3.5-5.1) mmol/L Chloride 109 H (98-107) mmol/L Carbon Dioxide 23 (21-32) mmol/L Anion Gap 5 (3-11) BUN 8 (6-23) mg/dl Creatinine 0.60 (0.6-1.2) mg/dl Est Cr Clr Drug Dosing 107.3 ml/min Est GFR ( Amer) 146.8 ml/min Est GFR (Non-Af Amer) 126.7 ml/min BUN/Creatinine Ratio 13.3 (10-20) Glucose 127 H (70-99(Fasting)) mg/dl POC Glucose 114 H (70-99) mg/dl Lactate (0.4-2.0) mmol/L Calcium 8.1 L (8.6-10.3) mg/dl Phosphorus 2.8 D (2.5-4.9) mg/dl Magnesium 1.9 (1.7-2.4) mg/dl Total Bilirubin (0.2-1.0) mg/dl Direct Bilirubin (0-0.2) mg/dl AST (13-39) U/L ALT (7-52) U/L Alkaline Phosphatase (34-104) U/L Troponin I High Sens 3.5 (0-14) pg/ml Total Protein (6.0-8.3) gm/dl Albumin (3.4-5.0) gm/dl Procalcitonin (0-0.5) ng/ml Urine Color Yellow Urine Appearance Cloudy A (Clear) Urine pH 5.5 (4.5-7.5) Ur Specific [place] 1.044 H (1.000-1.030) Urine Protein Negative (Negative) Urine Glucose (UA) Negative (Negative) Urine Ketones 2+ H (Negative) Urine Blood Negative (Negative) Urine Nitrite Negative (Negative) Urine Bilirubin Negative (Negative) Urine Urobilinogen Negative (Negative) Ur Leukocyte Esterase Trace H (Negative) Urine WBC (Auto) 5-10 H (0-5) /hpf Urine RBC (Auto) 0-4 (0-4) /hpf U Hyaline Cast (Auto) 1-5 (0-5) /lpf U Epithel Cells (Auto) >30 H (0-5) /lpf Urine Bacteria (Auto) Negative (Negative) Urine Yeast Budding A (None Prsent) Adenovirus (PCR) (NotDetected) B. pertussis DNA (PCR) (NotDetected) B.parapertussis DNA PCR (NotDetected) C. pneumoniae DNA (PCR) (NotDetected) Coronavirus OC43 (PCR) (NotDetected) Coronavirus HKU1 (PCR) (NotDetected) Coronavirus 229E (PCR) (NotDetected) SARS-CoV-2 (PCR) (NotDetected) Coronavirus NL63 (PCR) (NotDetected) Enterococc faecalis PCR (NotDetected) Human Metapneumovir PCR (NotDetected) Influenza Type A (PCR) (NotDetected) Influenza Type B (PCR) (NotDetected) M. pneumoniae (PCR) (NotDetected) Parainfluenza 1 (PCR) (NotDetected) Parainfluenza 2 (PCR) (NotDetected) Parainfluenza 3 (PCR) (NotDetected) Parainfluenza 4 (PCR) (NotDetected) RSV (PCR) (NotDetected) Entero/Rhino (PCR) (NotDetected) Opal/B-Vanco Res Genes (NotDetected) Bld Cult ID Panel PCR (NotDetected) 07/04/23 07/05/23 07/05/23 Range/Units 20:24 05:41 12:01 WBC 5.17 (4.8-10.8) K/ul RBC 3.91 L (4.20-5.40) M/uL Hgb 11.5 L (12.0-16.0) g/dl Hct 35.2 L (37.0-47.0) % MCV 90.0 (80.0-100.0) fL MCH 29.4 (25.0-34.0) pg MCHC 32.7 (32.0-36.0) g/dL RDW Std Deviation 41.9 (36.4-46.3) fL RDW Coeff of Priscilla 12.7 (11.5-14.5) % Plt Count 253 (130-400) K/uL MPV 9.2 L (9.4-12.4) fL Immature Gran % (Auto) % Neut % (Auto) % Lymph % (Auto) % [place] % (Auto) % Eos % (Auto) % Baso % (Auto) % Neut # (Auto) (1.40-6.50) K/uL Lymph # (Auto) (1.20-3.40) K/uL [place] # (Auto) (0.11-0.59) K/uL Eos # (Auto) (0.00-0.50) K/uL Baso # (Auto) (0.00-0.20) K/uL Immature Gran # (Auto) (0.01-0.20) K/uL Sodium 139 (136-145) mmol/L Potassium 4.0 (3.5-5.1) mmol/L Chloride 108 H (98-107) mmol/L Carbon Dioxide 26 (21-32) mmol/L Anion Gap 5 (3-11) BUN 12 (6-23) mg/dl Creatinine 0.61 (0.6-1.2) mg/dl Est Cr Clr Drug Dosing 109.3 ml/min Est GFR ( Amer) 146.0 ml/min Est GFR (Non-Af Amer) 126.0 ml/min BUN/Creatinine Ratio 19.7 (10-20) Glucose 111 H (70-99(Fasting)) mg/dl POC Glucose 104 H 179 H (70-99) mg/dl Lactate (0.4-2.0) mmol/L Calcium 8.7 (8.6-10.3) mg/dl Phosphorus 3.4 (2.5-4.9) mg/dl Magnesium 2.0 (1.7-2.4) mg/dl Total Bilirubin 0.4 (0.2-1.0) mg/dl Direct Bilirubin (0-0.2) mg/dl AST (13-39) U/L ALT (7-52) U/L Alkaline Phosphatase (34-104) U/L Troponin I High Sens (0-14) pg/ml Total Protein (6.0-8.3) gm/dl Albumin (3.4-5.0) gm/dl Procalcitonin (0-0.5) ng/ml Urine Color Urine Appearance (Clear) Urine pH (4.5-7.5) Ur Specific [place] (1.000-1.030) Urine Protein (Negative) Urine Glucose (UA) (Negative) Urine Ketones (Negative) Urine Blood (Negative) Urine Nitrite (Negative) Urine Bilirubin (Negative) Urine Urobilinogen (Negative) Ur Leukocyte Esterase (Negative) Urine WBC (Auto) (0-5) /hpf Urine RBC (Auto) (0-4) /hpf U Hyaline Cast (Auto) (0-5) /lpf U Epithel Cells (Auto) (0-5) /lpf Urine Bacteria (Auto) (Negative) Urine Yeast (None Prsent) Adenovirus (PCR) (NotDetected) B. pertussis DNA (PCR) (NotDetected) B.parapertussis DNA PCR (NotDetected) C. pneumoniae DNA (PCR) (NotDetected) Coronavirus OC43 (PCR) (NotDetected) Coronavirus HKU1 (PCR) (NotDetected) Coronavirus 229E (PCR) (NotDetected) SARS-CoV-2 (PCR) (NotDetected) Coronavirus NL63 (PCR) (NotDetected) Enterococc faecalis PCR (NotDetected) Human Metapneumovir PCR (NotDetected) Influenza Type A (PCR) (NotDetected) Influenza Type B (PCR) (NotDetected) M. pneumoniae (PCR) (NotDetected) Parainfluenza 1 (PCR) (NotDetected) Parainfluenza 2 (PCR) (NotDetected) Parainfluenza 3 (PCR) (NotDetected) Parainfluenza 4 (PCR) (NotDetected) RSV (PCR) (NotDetected) Entero/Rhino (PCR) (NotDetected) Opal/B-Vanco Res Genes (NotDetected) Bld Cult ID Panel PCR (NotDetected) 07/05/23 07/06/23 07/07/23 Range/Units 20:42 05:18 02:30 WBC 5.26 (4.8-10.8) K/ul RBC 4.01 L (4.20-5.40) M/uL Hgb 11.7 L (12.0-16.0) g/dl Hct 35.2 L (37.0-47.0) % MCV 87.8 (80.0-100.0) fL MCH 29.2 (25.0-34.0) pg MCHC 33.2 (32.0-36.0) g/dL RDW Std Deviation 40.6 (36.4-46.3) fL RDW Coeff of Priscilla 12.7 (11.5-14.5) % Plt Count 274 (130-400) K/uL MPV 9.5 (9.4-12.4) fL Immature Gran % (Auto) % Neut % (Auto) % Lymph % (Auto) % [place] % (Auto) % Eos % (Auto) % Baso % (Auto) % Neut # (Auto) (1.40-6.50) K/uL Lymph # (Auto) (1.20-3.40) K/uL [place] # (Auto) (0.11-0.59) K/uL Eos # (Auto) (0.00-0.50) K/uL Baso # (Auto) (0.00-0.20) K/uL Immature Gran # (Auto) (0.01-0.20) K/uL Sodium 137 (136-145) mmol/L Potassium 4.3 (3.5-5.1) mmol/L Chloride 108 H (98-107) mmol/L Carbon Dioxide 25 (21-32) mmol/L Anion Gap 4 (3-11) BUN 19 (6-23) mg/dl Creatinine 0.53 L (0.6-1.2) mg/dl Est Cr Clr Drug Dosing 125.8 ml/min Est GFR ( Amer) > 150.0 ml/min Est GFR (Non-Af Amer) 132.0 ml/min BUN/Creatinine Ratio 35.8 H (10-20) Glucose 103 H (70-99(Fasting)) mg/dl POC Glucose 83 101 H (70-99) mg/dl Lactate (0.4-2.0) mmol/L Calcium 8.7 (8.6-10.3) mg/dl Phosphorus 4.2 (2.5-4.9) mg/dl Magnesium 2.1 (1.7-2.4) mg/dl Total Bilirubin (0.2-1.0) mg/dl Direct Bilirubin (0-0.2) mg/dl AST (13-39) U/L ALT (7-52) U/L Alkaline Phosphatase (34-104) U/L Troponin I High Sens (0-14) pg/ml Total Protein (6.0-8.3) gm/dl Albumin (3.4-5.0) gm/dl Procalcitonin (0-0.5) ng/ml Urine Color Urine Appearance (Clear) Urine pH (4.5-7.5) Ur Specific [place] (1.000-1.030) Urine Protein (Negative) Urine Glucose (UA) (Negative) Urine Ketones (Negative) Urine Blood (Negative) Urine Nitrite (Negative) Urine Bilirubin (Negative) Urine Urobilinogen (Negative) Ur Leukocyte Esterase (Negative) Urine WBC (Auto) (0-5) /hpf Urine RBC (Auto) (0-4) /hpf U Hyaline Cast (Auto) (0-5) /lpf U Epithel Cells (Auto) (0-5) /lpf Urine Bacteria (Auto) (Negative) Urine Yeast (None Prsent) Adenovirus (PCR) (NotDetected) B. pertussis DNA (PCR) (NotDetected) B.parapertussis DNA PCR (NotDetected) C. pneumoniae DNA (PCR) (NotDetected) Coronavirus OC43 (PCR) (NotDetected) Coronavirus HKU1 (PCR) (NotDetected) Coronavirus 229E (PCR) (NotDetected) SARS-CoV-2 (PCR) (NotDetected) Coronavirus NL63 (PCR) (NotDetected) Enterococc faecalis PCR (NotDetected) Human Metapneumovir PCR (NotDetected) Influenza Type A (PCR) (NotDetected) Influenza Type B (PCR) (NotDetected) M. pneumoniae (PCR) (NotDetected) Parainfluenza 1 (PCR) (NotDetected) Parainfluenza 2 (PCR) (NotDetected) Parainfluenza 3 (PCR) (NotDetected) Parainfluenza 4 (PCR) (NotDetected) RSV (PCR) (NotDetected) Entero/Rhino (PCR) (NotDetected) Opal/B-Vanco Res Genes (NotDetected) Bld Cult ID Panel PCR (NotDetected) 07/07/23 07/07/23 07/08/23 Range/Units 04:25 20:29 03:34 WBC 5.00 (4.8-10.8) K/ul RBC 3.94 L (4.20-5.40) M/uL Hgb 11.4 L (12.0-16.0) g/dl Hct 35.6 L (37.0-47.0) % MCV 90.4 (80.0-100.0) fL MCH 28.9 (25.0-34.0) pg MCHC 32.0 (32.0-36.0) g/dL RDW Std Deviation 41.1 (36.4-46.3) fL RDW Coeff of Priscilla 12.5 (11.5-14.5) % Plt Count 290 (130-400) K/uL MPV 9.4 (9.4-12.4) fL Immature Gran % (Auto) % Neut % (Auto) % Lymph % (Auto) % [place] % (Auto) % Eos % (Auto) % Baso % (Auto) % Neut # (Auto) (1.40-6.50) K/uL Lymph # (Auto) (1.20-3.40) K/uL [place] # (Auto) (0.11-0.59) K/uL Eos # (Auto) (0.00-0.50) K/uL Baso # (Auto) (0.00-0.20) K/uL Immature Gran # (Auto) (0.01-0.20) K/uL Sodium 138 138 (136-145) mmol/L Potassium 4.1 4.1 (3.5-5.1) mmol/L Chloride 108 H 108 H (98-107) mmol/L Carbon Dioxide 25 24 (21-32) mmol/L Anion Gap 5 6 (3-11) BUN 18 25 H (6-23) mg/dl Creatinine 0.67 0.71 (0.6-1.2) mg/dl Est Cr Clr Drug Dosing 99.5 91.8 ml/min Est GFR ( Amer) 141.6 137.2 ml/min Est GFR (Non-Af Amer) 122.2 118.4 ml/min BUN/Creatinine Ratio 26.9 H 35.2 H (10-20) Glucose 93 98 (70-99(Fasting)) mg/dl POC Glucose 88 (70-99) mg/dl Lactate (0.4-2.0) mmol/L Calcium 8.8 8.8 (8.6-10.3) mg/dl Phosphorus 3.3 3.7 (2.5-4.9) mg/dl Magnesium 2.3 2.1 (1.7-2.4) mg/dl Total Bilirubin (0.2-1.0) mg/dl Direct Bilirubin (0-0.2) mg/dl AST (13-39) U/L ALT (7-52) U/L Alkaline Phosphatase (34-104) U/L Troponin I High Sens (0-14) pg/ml Total Protein (6.0-8.3) gm/dl Albumin (3.4-5.0) gm/dl Procalcitonin (0-0.5) ng/ml Urine Color Urine Appearance (Clear) Urine pH (4.5-7.5) Ur Specific [place] (1.000-1.030) Urine Protein (Negative) Urine Glucose (UA) (Negative) Urine Ketones (Negative) Urine Blood (Negative) Urine Nitrite (Negative) Urine Bilirubin (Negative) Urine Urobilinogen (Negative) Ur Leukocyte Esterase (Negative) Urine WBC (Auto) (0-5) /hpf Urine RBC (Auto) (0-4) /hpf U Hyaline Cast (Auto) (0-5) /lpf U Epithel Cells (Auto) (0-5) /lpf Urine Bacteria (Auto) (Negative) Urine Yeast (None Prsent) Adenovirus (PCR) (NotDetected) B. pertussis DNA (PCR) (NotDetected) B.parapertussis DNA PCR (NotDetected) C. pneumoniae DNA (PCR) (NotDetected) Coronavirus OC43 (PCR) (NotDetected) Coronavirus HKU1 (PCR) (NotDetected) Coronavirus 229E (PCR) (NotDetected) SARS-CoV-2 (PCR) (NotDetected) Coronavirus NL63 (PCR) (NotDetected) Enterococc faecalis PCR (NotDetected) Human Metapneumovir PCR (NotDetected) Influenza Type A (PCR) (NotDetected) Influenza Type B (PCR) (NotDetected) M. pneumoniae (PCR) (NotDetected) Parainfluenza 1 (PCR) (NotDetected) Parainfluenza 2 (PCR) (NotDetected) Parainfluenza 3 (PCR) (NotDetected) Parainfluenza 4 (PCR) (NotDetected) RSV (PCR) (NotDetected) Entero/Rhino (PCR) (NotDetected) Opal/B-Vanco Res Genes (NotDetected) Bld Cult ID Panel PCR (NotDetected)
[2023-07-08] MEDS ORDERED: [UNRECOGNIZED DRUG - OTHER] IV SCH (20:00)
[2023-07-08] MEDS ORDERED: PERIPHERAL TPN IV SCH (20:00)
[2023-07-08] MEDS: MONTELUKAST SODIUM 10 MG TABLET PO SCH (20:09)
[2023-07-09] MEDS: AMPICILLIN 2,000 MG in SODIUM CHLOR 0.9% MINI-B 100 ML IV SCH ×5 (00:49→20:49)
[2023-07-09 04:44] LABS: Hematocrit (blood only) 35.6 % (37.0-47.0); Hemoglobin 11.8 g/dl (12.0-16.0); Mean Corpuscular Hemoglobin 29.3 pg (25.0-34.0); Mean Corpuscular Hgb Conc 33.1 g/dL (32.0-36.0); Mean Corpuscular Volume 88.3 fL (80.0-100.0); Mean Platelet Volume 9.2 fL (9.4-12.4); Platelet Count 366 K/uL (130-400); RDW Coefficient of Variation 12.3 % (11.5-14.5); Red Blood Count 4.03 M/uL (4.20-5.40); White Blood Count 6.16 K/ul (4.8-10.8)
[2023-07-09 04:56] LABS: BUN Creatinine Ratio 32.4 (10-20); Calcium 9.1 mg/dl (8.6-10.3); Creatinine Clr Calc Pharmacy 95.2 ml/min; Est GFR (African American) 137.2 ml/min; Est GFR (Non-African American) 118.4 ml/min; Magnesium 2.2 mg/dl (1.7-2.4); Phosphorus 3.6 mg/dl (2.5-4.9); Potassium 4.1 mmol/L (3.5-5.1)
[2023-07-09] MEDS ORDERED: ONDANSETRON INJ 2 MG/ML 2 ML VIAL ONE (09:16)
[2023-07-09] MEDS ORDERED: LIDOCAINE 2% 2 ML VIAL/AMP(20MG/ML) INFIL ONE (09:16)
[2023-07-09] MEDS ORDERED: PROPOFOL IV EMULSION 10 MG/ML 20 ML VIAL IV ONE (09:16)
[2023-07-09] MEDS ORDERED: fentaNYL citrate PF 100 MCG/2 ML VIAL ONE (09:16)
[2023-07-09] MEDS ORDERED: MIDAZOLAM HCL 1 MG/ML 2ML VIAL ONE (09:16)
[2023-07-09] MEDS: LORATADINE 10 MG TAB PO SCH (09:18)
[2023-07-09] MEDS: FAMOTIDINE 20 MG TAB PO SCH ×2 (09:18→20:50)
[2023-07-09] MEDS: CEROVITE ADV FORMULA TAB PO SCH (09:19)
[2023-07-09] MEDS: TPN RATE CHANGE SCH ×2 (09:19→20:59)
[2023-07-09] MEDS: FLUDROCORTISONE ACETATE 0.1 MG TAB PO SCH (09:19)
[2023-07-09] MEDS ORDERED: ePHEDrine sulfate 50 MG/ML AMP IV PRN (09:46)
[2023-07-09] MEDS ORDERED: ONDANSETRON INJ 2 MG/ML 2 ML VIAL IV PRN (09:46)
[2023-07-09] MEDS ORDERED: ATROPINE SULFATE 0.1 MG/ML 10ML SYR IV PRN (09:46)
[2023-07-09] MEDS ORDERED: HEPARIN 100 UNIT/ML 5ML FLUSH ONE ×2 (09:48→11:09)
[2023-07-09] MEDS ORDERED: BUPIVACAINE 0.5 % 5 MG/1 ML MPF 30ML VIAL ONE (09:48)
[2023-07-09] MEDS ORDERED: BACITRACIN OINT 14 GM TUBE ONE (09:48)
[2023-07-09] MEDS ORDERED: LIDOCAINE 1% LOCAL 20 ML VIAL ONE (09:48)
--- NOTE | 2023-07-09 10:18 | History & Physical Bridge Note ---
Date of Service July 09, 2023 History & Physical Bridge Note I have examined the patient, reviewed the History & Physical and in the interval since the performance of the History & Physical I have noted the following changes of clinical significance: no changes noted Supervising Physician Co-Signing Physician Notes Supervising Physician Attestation: I have personally performed a history and physical examination on the patient. I agree with the CARDIOLOGY NURSE PRACTITIONER's findings and plan as documented with the following additions. Subjective: The patient's parents were at the bedside at the time of my assessment. The patient states that she presented to the emergency department due to concerns of sensation of fevers and chills x 2 days duration and sensation of elevated heart rate. At present she is improved. Telemetry overnight for the most part reveals sinus tachycardia in the 120s. Exam: Cardiovascular: Regular rhythm, tachycardic, no murmurs, no edema Chest: Right sided tunneled catheter site clean dry and intact with no erythema Data: Echocardiogram performed this morning and interpreted independently: Sinus tachycardia with rates in the range of 100 1020 bpm present during the echocardiogram. The left ventricular wall motion was normal with LVEF in the range of 60 to 65% (normal). The right ventricular chamber size and systolic function is normal. There are no significant valvular abnormalities within the limitations of this imaging modality. 2/2 blood cultures obtained on presentation 07/03/2023 at 1831 and 1827 yielding gram-positive cocci in chains preliminarily, concerning for Enterococcus bacteremia. -Repeat blood cultures obtained this morning after patient having received antibiotics. Assessment and Plan: Sinus tachycardia in the setting of bacteremia, with one of the abnormal blood cultures drawn from the catheter Concern for tunnelled catheter infection -A previous tunneled catheter has been removed in June, in the setting of fungemia. -Patient receives TPN via tunneled catheter on a chronic basis, and also has a chronic jejunostomy tube. -Would speculate that she has an acute worsening sinus tachycardia that is physiologic related to infection. -Agree with antibiotic therapy, stable from cardiac perspective to have catheter removed by surgery. -Continue monitor sinus tachycardia on telemetry for now. I spent a total of 20 minutes on the date of service in preparation, delivery, and documentation of the care provided to this patient, excluding any time spent in the performance of separately billed services. Peter Garcia,
--- NOTE | 2023-07-09 10:23 | Anesthesiology Consultation ---
Date of Service July 09, 2023 Assessment & Plan Chart Review Chart Review: Acceptable Risk for Surgery and Patient NOT seen in Pre Admission Testing Consults Requested none ASA ASA2 Proposed Anesthesia Anesthesia Type: MAC Risk / Benefits Reviewed With: PT / POA / Parent / Guardian, Accepts Plan and Informed Consent Obtained History Surgery Operation Date: 07/09/23 10:35 Proposed Procedures p Insertion Port Catheter - Christa Castañeda MD Height/Weight Height: 5 ft 3 in Weight: 49.5 kg Allergies Allergy/AdvReac Type Severity Reaction Status Date / Time diphenhydramine Allergy Severe Urticaria, Verified 07/03/23 20:55 [From Benadryl] severe anxiety, jittery iron [From Venofer] Allergy Severe Abdominal Verified 07/03/23 20:55 Pain prochlorperazine Allergy Severe Anaphylaxis Verified 07/03/23 20:55 [From Compazine] adhesive Allergy Intermediate Redness, Verified 07/03/23 20:55 swelling gluten Allergy Intermediate Hives, GI Verified 07/03/23 20:55 upset peanut Allergy Intermediate Itchy Verified 07/03/23 20:55 throat tree nut Allergy Intermediate Itchy Verified 07/03/23 20:55 throat pollen extracts Allergy Mild Itchy Verified 07/03/23 20:55 eyes, sneezing, congestion chlorhexidine Allergy Unknown Unknown Verified 07/03/23 20:55 Latex, Natural Rubber AdvReac Intermediate Redness, Verified 07/03/23 20:55 itchy Medications Home Medications Medication Instructions Recorded Confirmed Last Taken famotidine 20 mg tablet 20 mg PO BID 04/09/21 07/03/23 07/03/23 08:00 fludrocortisone 0.1 mg tablet 0.1 mg PO QAM 04/09/21 07/03/23 07/03/23 loratadine 10 mg tablet 10 mg PO QAM 04/09/21 07/03/23 07/03/23 montelukast 10 mg tablet 10 mg PO HS 04/09/21 07/03/23 07/02/23 (Singulair) ondansetron HCl 8 mg tablet 8 mg PO Q8 PRN Nausea 04/09/21 07/03/23 02/06/23 20:00 linaclotide 145 mcg capsule 145 mcg PO QAM PRN Constipation 01/02/22 07/03/23 02/05/23 (Linzess) cholecalciferol (vitamin D3) 1,250 1,250 mcg PO WK 01/13/23 07/03/23 06/29/23 mcg (50,000 unit) capsule granisetron HCl 1 mg tablet 1 mg PO Q12H 05/07/23 07/03/23 07/03/23 08:00 Active Medications Generic Name Dose Route Start Last Admin Trade Name Benny PRN Reason Stop Dose Admin Famotidine 20 mg 07/04/23 09:00 07/09/23 09:18 Famotidine 20 Mg Tab PO 08/03/23 08:59 20 mg BID UZLY Administration Fludrocortisone Acetate 0.1 mg 07/04/23 09:00 07/09/23 09:19 Fludrocortisone Acetate 0.1 Mg Tab PO 08/03/23 08:59 0.1 mg QAM ZULY Administration Ampicillin Sodium 2,000 mg/ 100 mls @ 200 mls/hr 07/04/23 09:00 07/09/23 09:18 Sodium Chloride IV 07/18/23 08:59 100 mls/hr Q4H ZULY Administration Dextrose 1,000 mls @ 999 mls/hr 07/05/23 10:00 07/08/23 12:15 D5w IV 08/04/23 09:59 Infused DAILY@1000 ZULY Infusion Loratadine 10 mg 07/04/23 09:00 07/09/23 09:18 Loratadine 10 Mg Tab PO 08/03/23 08:59 10 mg QAM ZULY Administration Miscellaneous 1 each 07/04/23 21:00 07/08/23 21:00 Ppn Rate Change N/A 08/03/23 20:59 1 each DAILY@2100 ZULY Administration Miscellaneous 1 each 07/05/23 09:00 07/09/23 09:19 Ppn Rate Change N/A 08/04/23 08:59 1 each DAILY@0900 ZULY Administration Montelukast Sodium 10 mg 07/04/23 21:00 07/08/23 20:09 Montelukast Sodium 10 Mg Tablet PO 08/03/23 20:59 10 mg HS ZULY Administration Multivitamins/Minerals 1 tab 07/04/23 14:00 07/09/23 09:19 Cerovite Adv Formula Tab PO 08/03/23 13:59 1 tab DAILY ZULY Administration NPO Date Last Intake of Fluids: 07/09/23 Time Last Intake of Fluids: 09:00 Last Intake of Fluids Comment: sip with meds Date Last Intake of Solids: 07/08/23 Time Last Intake of Solids: 20:00 Past Medical History Medical History Gastrointestinal dysmotility Central venous catheter in place broke- clamped in ER, taped around site Reactive hypoglycemia dexcom present to left arm Anemia Neuropathy legs Gastroparesis History of COVID-19 02/2022, not hospitalized 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 Chronic pain POTS (postural orthostatic tachycardia syndrome) Jejunostomy tube present placed October 2020 Severe malnutrition Abdominal pain, chronic, epigastric chronic On total parenteral nutrition (TPN) Jaqui-Danlos disease Dx several years ago Exercise / Class Metabolic Activity II 4-5 Yardwork/Stairs/Walk up hill Past Family History Family History Other Adopted Past Surgical History Surgical History History of myringotomy History of surgery (06/24/21) Removal of Right Tunneled Central Line in Internal Jugular Catheter H/O wisdom tooth extraction H/O wrist surgery right S/P knee surgery Left History of esophagogastroduodenoscopy (EGD) Past Anesthesia History No Hx of Anesthesia Complications and No Family Hx of Anesthesia Complications History of PONV No Hx of PONV and No Hx of Motion Sickness Social History Smoking Status: Never smoker Do You Dip or Chew Tobacco: No Hx Alcohol Use: Yes Alcohol type: hard liquor alcohol intake frequency: holidays/special occasions only Hx Substance Use: No substance use type: does not use Review of Systems ROS Unobtainable: All systems reviewed & are unremarkable except as noted in HPI & below Physical Exam Vital Signs Last Vital Signs Temp 36.7 C 07/09/23 09:52 Pulse 83 07/09/23 10:00 Resp 20 07/09/23 09:52 BP 102/84 07/09/23 09:52 Pulse Ox 99 07/09/23 09:52 O2 Del Method Room Air 07/09/23 09:52 ENMT Mouth: no TMJ abnormality Thyromental Distance: > or= 3.5 Finger Breadths Mallampati Class: II Neck normal visual inspection and trachea midline; neck extension not limited Respiratory normal respiratory effort Auscultation: lungs clear to auscultation bilaterally Cardiovascular Rate/Rhythm: regular rate and regular rhythm Heart Sounds: no murmur Musculoskeletal Spine: normal cervical ROM Extremities: full ROM of extremities Neurologic moves all extremities Psychiatric Orientation: alert and oriented x 3 Testing Laboratory Results 07/09/23 03:53 07/09/23 03:53 Urine Color Yellow 07/04/23 01:47 Urine Appearance Cloudy (Clear) A 07/04/23 01:47 Urine pH 5.5 (4.5-7.5) 07/04/23 01:47 Ur Specific [place] 1.044 (1.000-1.030) H 07/04/23 01:47 Urine Protein Negative (Negative) 07/04/23 01:47 Urine Glucose (UA) Negative (Negative) 07/04/23 01:47 Urine Ketones 2+ (Negative) H 07/04/23 01:47 Urine Nitrite Negative (Negative) 07/04/23 01:47 Ur Leukocyte Esterase Trace (Negative) H 07/04/23 01:47 Urine WBC (Auto) 5-10 /hpf (0-5) H 07/04/23 01:47 Urine RBC (Auto) 0-4 /hpf (0-4) 07/04/23 01:47 U Hyaline Cast (Auto) 1-5 /lpf (0-5) 07/04/23 01:47 U Epithel Cells (Auto) >30 /lpf (0-5) H 07/04/23 01:47 Urine Bacteria (Auto) Negative (Negative) 07/04/23 01:47 07/04/23 08:47 Aerobic Blood Culture - Final Blood No growth in Aerobic bottle after 5 days. Anaerobic Blood Culture - Final No growth in Anaerobic bottle after 5 days. 07/04/23 08:56 Aerobic Blood Culture - Final Blood No growth in Aerobic bottle after 5 days. Anaerobic Blood Culture - Final No growth in Anaerobic bottle after 5 days. 07/05/23 08:19 Aerobic Blood Culture - Preliminary Blood No growth in Aerobic bottle after 48 hours. Anaerobic Blood Culture - Preliminary No growth in Anaerobic bottle after 48 hours. 07/05/23 08:19 Aerobic Blood Culture - Preliminary Blood No growth in Aerobic bottle after 48 hours. Anaerobic Blood Culture - Preliminary No growth in Anaerobic bottle after 48 hours. 07/04/23 12:51 Aerobic Blood Culture - Preliminary Blood Enterococcus faecalis Anaerobic Blood Culture - Preliminary No growth in Anaerobic bottle after 48 hours. 07/03/23 18:31 Aerobic Blood Culture - Final Blood Enterococcus faecalis Anaerobic Blood Culture - Final Enterococcus faecalis 07/03/23 18:27 Aerobic Blood Culture - Final Blood Enterococcus faecalis Anaerobic Blood Culture - Final Enterococcus faecalis 07/04/23 14:30 Catheter Tip Culture - Final Catheter Tip, Picc Coag negative Staphylococcus Probable Enterococcus 07/04/23 01:47 Urine Culture - Final Urine,Clean Catch More than three types of organisms present, all high counts mixed probable skin skyler - No further identifications or sensitivities to follow. 07/09/23 07/09/23 09:48 00:24 POC Glucose 88 96 Electrocardiogram Date: 07/06/23 Findings: + NSR @
[2023-07-09 10:28] LABS: Pregnancy Test, Serum Negative (Negative)
[2023-07-09] MEDS ORDERED: DEXAMETHASONE SOD INJ 4 MG/ML VIAL ONE (11:18)
--- NOTE | 2023-07-09 12:01 | Post Operative Brief Note ---
Immediate Post Op Note v1 Date of Surgery July 09, 2023 Pre & Post Diagnosis Operation Date: 07/09/23 10:35 Pre-Op Diagnosis: Need for long-term intravenous access Post-Op Diagnosis: Need for long-term intravenous access I identified the patient and participated in the time-out.: Yes Procedure Operation Date: 07/09/23 10:35 Actual Procedures p Insertion Port Catheter- Left internal jugular vein(Left) - Christa Castañeda MD Surgeon Christa Castañeda MD Cardiac Cath Lab Radiology Technologist instructor adjunct surgical technician Estimated Blood Loss 5 Findings Consistent with Post-Op Diagnosis Fluids 700ml Anesthesia Type Local Complications none Disposition Accompanied Patient To Recovery: Yes
[2023-07-09] MEDS: fentaNYL citrate PF 100 MCG/2 ML VIAL IV PRN ×2 (12:19→12:27)
--- NOTE | 2023-07-09 12:55 | XRay Report ---
XR chest 1V portable CLINICAL HISTORY: S/P insertion port COMPARISON STUDY: Chest radiograph and chest CT July 03, 2023. FINDINGS: There is no pneumothorax following placement of a left internal jugular [id number]. Cath eter tip projects over the distal SVC. Catheter is intact. Lungs are clear. Cardiac size is normal. M ediastinal contours are normal. The right sided [id number] has been removed in the interim. IMPRESSION: No pneumothorax following placement of a left internal jugular [id number]. ACT 112: Negative or not required by law. Electronically signed by: Bhupinder Valiente M.D. 07/09/2023 12:53 PM
--- NOTE | 2023-07-09 13:15 | Anesthesiology Progress Note ---
Date of Service July 09, 2023 Anesthesia Post Procedure Vital Signs Vital Signs: Temp Pulse Pulse Pulse Resp BP BP 07/09/23 13:08 36.8 C 98 H 16 110/70 07/09/23 12:45 36.6 C 92 H 15 125/85 07/09/23 12:35 84 15 123/66 07/09/23 12:25 88 14 127/77 07/09/23 12:15 91 H 15 125/72 07/09/23 12:09 36.1 C L 88 16 131/79 07/09/23 11:14 83 07/09/23 10:00 83 07/09/23 09:52 36.7 C 102 H 20 102/84 07/09/23 07:50 36.5 C 88 17 103/70 07/09/23 03:15 36.6 C 97 H 20 108/72 07/08/23 23:20 36.5 C 90 18 105/64 07/08/23 22:05 82 07/08/23 19:58 36.4 C L 106 H 18 113/75 07/08/23 16:29 36.8 C 130 H 17 101/67 Pulse Ox O2 Del Method O2 Flow Rate 07/09/23 13:08 98 Room Air 07/09/23 12:45 96 Room Air 07/09/23 12:35 97 Room Air 07/09/23 12:25 100 Nasal Cannula 2 07/09/23 12:15 100 Nasal Cannula 2 07/09/23 12:09 99 Nasal Cannula 2 07/09/23 11:14 07/09/23 10:00 07/09/23 09:52 99 Room Air 07/09/23 07:50 98 Room Air 07/09/23 03:15 97 Room Air 07/08/23 23:20 96 Room Air 07/08/23 22:05 07/08/23 19:58 97 Room Air 07/08/23 16:29 92 Room Air Pain Intensity Bilateral Abdomen: Pain Intensity: 2 Left Chest: Pain Intensity: 4 Transfer of Care Handoff Completed per policy Notes Mental Status: alert / awake / arousable Patient Amnestic to Procedure: Yes Nausea / Vomiting: adequately controlled Pain: adequately controlled Airway Patency, RR, SpO2: stable & adequate BP & HR: stable & adequate Hydration State: stable & adequate Anesthetic Complications: no major complications apparent and Pt Satisfied with anesthetic care
[2023-07-09] MEDS ORDERED: oxyCODONE/ACETAMINOPHEN 5mg/325mg TAB PO PRN (13:18)
[2023-07-09] MEDS ORDERED: ONDANSETRON 4 MG OD TAB PO PRN (13:25)
[2023-07-09] MEDS ORDERED: Nursing to Pharmacy Communication SCH (13:30)
[2023-07-09] MEDS: DEXTROSE 5% 1,000 ML IV SCH ×2 (14:40→14:45)
--- NOTE | 2023-07-09 16:00 | Hospitalist Progress Note ---
Date of Service July 09, 2023 Assessment & Plan (1) Bacteremia due to Enterococcus: (2) Sepsis: (3) Tachycardia: Plan: 27-year-old female with past medical history significant for Jaqui-Danlos disease, GI dysmotility currently on TPN, malnutrition, POTS, history of fungemia in June 2021 treated with IV antibiotics and Port-A-Cath exchange, patient is s/p G-tube placement and was on tube feeds for some time but could not tolerate them and currently back on TPN presented with tachycardia. Patient states last couple of days STUDENT SERVICES ADVISOR whenever she tried to do TPN her heart rate was going up to 180s and spiking temperature and as soon as she unhooked the TPN she was feeling okay. Because of that she could not give her TPN for last couple of days STUDENT SERVICES ADVISOR and she is worried about infection and came to the ER. Patient states that she does TPN 2.8 L including normal saline every night for 14 hours after that she gets 1 L of dextrose. She eats 1 small meal every day in the evening. She is being managed for the following: Bacteremia due to Enterococcus Tachycardia likely due to Sepsis Patient also has h/o POTS Blood cultures from 07/03/23 growing Enterococcus Repeat blood cultures (peripheral) from 07/04/23 and 07/05/23 are negative so far Blood culture (from central line) from 07/04/23 is growing Probable Enterococcus Catheter tip culture from 07/04/23 growing Probable Enterococus and CONS Possible catheter related blood stream infection Central line/catheter removed by Surgeon on 07/04/23 ID evaluation and recommendations noted CONS likely contaminant TTE report did not show significant valvular abnormalities Blood culture from 07/05/23 remains negative Per prior Attending - discussed with ID Dr Parr. Final recs: IV ampicillin till 07/18/23 to complete 14 days from negative culture. Script given to CM Left Int Jugular vein port cath placement 07/09 by gen Sjuan for IV antibiotics and also patient is TPN dependent F/u cxr w/ no ptx. GI dysmotility Severe Malnutrition Pharmacy on board for PPN for now Patient reports trial of PEG use even with 10cc of fluid recently had been associated with severe GI symptoms No PEG tube use for now. Will defer that to patient's GI/Office Machine Service Supervisor outpatient s/p central line today. ppn/tpn per pharmacy. History of anemia History of IV iron infusions Hb stable Monitor Hb DVT prophylaxis: Heparin subcu stopped for OR today, will resume kirill. Disposition: Telemetry floor Full code Patient can be discharged once port is placed and home antibiotics arranged. Admission and Anticipated Discharge Date Admission Date: July 04, 2023 Subjective Patient seen and examined at bedside. Status post insertion port catheter x left internal jugular on 07/09/2023. No new complaints. Has chronic nausea and abd pain Physical Exam Physical Exam: General- Not in acute distress Head- atraumatic Eyes- PERRL. ENT- oropharynx clear Neck- supple, no JVD Lungs- clear to auscultation no wheezing or crackles. Heart- regular rhythm;tachycardia no murmur, no gallop, left sided chest central line seen. No obvious erythema or drainage around line seen. Abdomen- normal bowel sounds, soft, nontender, no distension. G tube site no erythema or drainage seen. Extremities- no pretibial edema, no erythema seen. Neuro- alert, oriented x 3; PERRL, no facial palsy; no dysarthria; moves extremities. Skin- warm & dry Results & Data Results & Data Vital Signs (Past 12 Hours) Vital Signs Temp Pulse Pulse Pulse Resp BP BP 07/09/23 15:21 86 07/09/23 13:08 36.8 C 98 H 16 110/70 07/09/23 12:45 36.6 C 92 H 15 125/85 07/09/23 12:35 84 15 123/66 07/09/23 12:25 88 14 127/77 07/09/23 12:15 91 H 15 125/72 07/09/23 12:09 36.1 C L 88 16 131/79 07/09/23 11:14 83 07/09/23 10:00 83 07/09/23 09:52 36.7 C 102 H 20 102/84 07/09/23 07:50 36.5 C 88 17 103/70 Pulse Ox O2 Del Method O2 Flow Rate 07/09/23 15:21 07/09/23 13:08 98 Room Air 07/09/23 12:45 96 Room Air 07/09/23 12:35 97 Room Air 07/09/23 12:25 100 Nasal Cannula 2 07/09/23 12:15 100 Nasal Cannula 2 07/09/23 12:09 99 Nasal Cannula 2 07/09/23 11:14 07/09/23 10:00 07/09/23 09:52 99 Room Air 07/09/23 07:50 98 Room Air (2) Sepsis Sepsis type: sepsis due to unspecified organism Sepsis acute organ dysfunction status: without acute organ dysfunction Qualified Code(s): A41.9 - Sepsis, unspecified organism
--- NOTE | 2023-07-09 18:34 | Operative Report ---
Post Operative Report Pre & Post Diagnosis Operation Date: 07/09/23 10:35 Pre-Op Diagnosis: Need for long-term intravenous access Post-Op Diagnosis: Need for long-term intravenous access I identified the patient and participated in the time-out.: Yes Procedure Operation Date: 07/09/23 10:35 Actual Procedures p Insertion Port Catheter- Left internal jugular vein(Left) - Christa Castañeda MD Surgeon Christa Castañeda MD Bariatric Program Coordinator surgical instrument maker Estimated Blood Loss 5 Findings Consistent with Post-Op Diagnosis Fluids patent left internal jugular vein Specimens none Drains none Anesthesia Type Local Complications none Indications Patient is a 27 years old female in the long-term TPN, patient had a difficult IV access. I was asked to insertion port-catheter. He did talk to patient about the benefit the risk and alternate procedure. I indicated the risks may include but not limited such as a bleeding, infection, injury other organ, dysfunction catheter, and blood clot. Patient understood. he signed informed consent. I answered all questions. Description of Procedure Operative identified patient verify procedure. we brought patient to the OR put the patient on imposition on the OR table. Save SCD on bilateral abdomen DVT. Patient received a 2 g cefoxitin IV for prophylactic antibiotic. Patient re ceived conscious sedation by the anesthesiologist. left neck and left upper chest wall were propped and dripped in routine Steril fashion. After timeout. I injected local anesthesia by using 1% lidocaine mixed with 0.5% Marcaine on the left side of the neck and left upper chest wall. Using 15-gauge needle puncture left internal intraoperative vein and ultrasound-guided. He is able to return possible area and remove the needle the use of Zeinab confirm the tip of wire located the superior vena cava. The make a 2.5 cm incision on the left upper chest wall, dissection subcutaneous layer to create porch. I size the port catheter, passed catheter from left chest wall to left neck. the end of catheter connect to the port. I use a dilator with sheath passes wire. Remove the wire and dilator, keep the sheath in.Pass port-catheter into the sheath then remove the sheath. The use of fluorescein confirmed the tip of catheter located superior vena cava. I used a 2-0 Prolene to fixed the port on chest wall at 3 points. Hemostat is obtained. Close incision subcutaneous layer by using 2-0 Vicryl continuous running,close skin by using 4-0 Vicryl continuous running. Put the dressing on. the patient tolerated procedure well. all instrument needle sponge count correct x 2 at the end of the case. patient transferred to recovery room in stable condition. after procedure I did talk to patient about the OR finding and procedure we did. patient understood. I attest to the content of the Intraoperative Record and any orders documented therein. Any exceptions are noted below. Supervising Physician Co-Signing Physician Notes Supervising Physician Attestation: I have personally performed a history and physical examination on the patient. I agree with the OFFICE PROFESSIONAL's findings and plan as documented with the following additions. Subjective: The patient's parents were at the bedside at the time of my assessment. The patient states that she presented to the emergency department due to concerns of sensation of fevers and chills x 2 days duration and sensation of elevated heart rate. At present she is improved. Telemetry overnight for the most part reveals sinus tachycardia in the 120s. Exam: Cardiovascular: Regular rhythm, tachycardic, no murmurs, no edema Chest: Right sided tunneled catheter site clean dry and intact with no erythema Data: Echocardiogram performed this morning and interpreted independently: Sinus tachycardia with rates in the range of 100 1020 bpm present during the echocardiogram. The left ventricular wall motion was normal with LVEF in the range of 60 to 65% (normal). The right ventricular chamber size and systolic function is normal. There are no significant valvular abnormalities within the limitations of this imaging modality. 2/2 blood cultures obtained on presentation 07/03/2023 at 1831 and 1827 yielding gram-positive cocci in chains preliminarily, concerning for Enterococcus bacteremia. -Repeat blood cultures obtained this morning after patient having received antibiotics. Assessment and Plan: Sinus tachycardia in the setting of bacteremia, with one of the abnormal blood cultures drawn from the catheter Concern for tunnelled catheter infection -A previous tunneled catheter has been removed in June, in the setting of fungemia. -Patient receives TPN via tunneled catheter on a chronic basis, and also has a chronic jejunostomy tube. -Would speculate that she has an acute worsening sinus tachycardia that is phys iologic related to infection. -Agree with antibiotic therapy, stable from cardiac perspective to have catheter removed by surgery. -Continue monitor sinus tachycardia on telemetry for now. I spent a total of 20 minutes on the date of service in preparation, delivery, and documentation of the care provided to this patient, excluding any time spent in the performance of separately billed services. Peter Garcia, DO
[2023-07-09] MEDS ORDERED: [UNRECOGNIZED DRUG - OTHER] IV SCH (20:00)
[2023-07-09] MEDS ORDERED: CENTRAL TPN IV SCH (20:00)
[2023-07-09] MEDS ORDERED: CLINOLIPID 20% IV FAT EMULSION 250 ML IV SCH (20:00)
[2023-07-09] MEDS: MONTELUKAST SODIUM 10 MG TABLET PO SCH (20:50)
[2023-07-10] MEDS: AMPICILLIN 2,000 MG in SODIUM CHLOR 0.9% MINI-B 100 ML IV SCH ×6 (00:32→20:01)
[2023-07-10] MEDS ORDERED: STOP CLINOLIPID SCH (02:00)
[2023-07-10] MEDS ORDERED: DEXTROSE 10% 1,000 ML IV ONE (06:15)
[2023-07-10 07:06] LABS: BUN Creatinine Ratio 31.3 (10-20); Calcium 8.9 mg/dl (8.6-10.3); Creatinine Clr Calc Pharmacy 105.2 ml/min; Est GFR (African American) 143.7 ml/min; Magnesium 2.2 mg/dl (1.7-2.4)
[2023-07-10] MEDS: LORATADINE 10 MG TAB PO SCH (08:43)
[2023-07-10] MEDS: FLUDROCORTISONE ACETATE 0.1 MG TAB PO SCH (08:43)
[2023-07-10] MEDS: FAMOTIDINE 20 MG TAB PO SCH ×2 (08:43→20:37)
[2023-07-10] MEDS: CEROVITE ADV FORMULA TAB PO SCH (08:43)
--- NOTE | 2023-07-10 10:46 | Surgery Progress Note ---
Date of Service July 10, 2023 Assessment & Plan (1) Central venous catheter in place: Plan: Assessment: Patient is 27 years old female's past medical history is significant for Jaqui-Danlos disease, gastrointestinal dysmotility, sepsis, bacteremia, on TPN. and G-tube feeds, Fungemia and Iron deficiency. pt was admitted to hospital for infected IV catheter. Patient had the IV catheter removal on July [address] Unger. The tip of catheter culture positive for Coag negative Staphylococcus, and probable Enterococcus. now pt feels better, pt needs IV access for treat infection and TPN. Hospitalist requested to consult me for place port catheter. Plan: I recommend to do place port- catheter insertion under sedation + local anesthesia. I discussion with the patient about the benefit the risk and alternate of the procedure I indicated the risks may include but not limited such as a bleeding, infection, injury other organ, blood clot, and dysfunction catheter. patient understood. she agreed to proceed the procedure. she signed informed consent. I answered all questions. 07/10/2023 10:44 AM F/U S/P port insertion, POD 1 pt is doing fine. the port can be used, I gave the post-op care instruction keep the dressing on for 4 days, she can take a shower on 07/15/2023 sign off, please call with questions and concern. Admission and Anticipated Discharge Date Admission Date: July 04, 2023 Subjective F/U S/P port insertion, POD 1, pt is doing fine, no fever. Physical Exam Constitutional: WD/WN, vitals as above Eyes: PERRL, conjunctivae normal, anicteric sclerae Neck: trachea midline, no thyromegaly Respiratory: normal respiratory effort, lungs clear to auscultation Cardiovascular: RRR, no murmur, no edema Chest (Breasts): Additional Comments: the incision intact on left upper chest wall, no redness. Neurologic: patellar DTR's 2+ bilat, sensation intact Psychiatric: A+Ox3, euthymic affect Results & Data Vital Signs (Past 12 Hours) Vital Signs Temp Pulse Pulse Resp BP Pulse Ox O2 Del Method 07/10/23 08:00 85 07/10/23 08:00 36.6 C 87 16 93/51 L 97 Room Air 07/10/23 03:50 36.7 C 92 H 18 97/65 L 98 Room Air 07/09/23 23:02 36.6 C 110 H 18 101/70 96 Room Air
[2023-07-10] MEDS: DEXTROSE 5% 1,000 ML IV SCH (17:30)
--- NOTE | 2023-07-10 17:33 | Hospitalist Progress Note ---
Date of Service July 10, 2023 Assessment & Plan (1) Bacteremia due to Enterococcus: (2) Sepsis: (3) Tachycardia: Plan: 27-year-old female with past medical history significant for Jaqui-Danlos disease, GI dysmotility currently on TPN, malnutrition, POTS, history of fungemia in June 2021 treated with IV antibiotics and Port-A-Cath exchange, patient is s/p G-tube placement and was on tube feeds for some time but could not tolerate them and currently back on TPN presented with tachycardia. Patient states last couple of days [employer]UL[employer]ANDER whenever she tried to do TPN her heart rate was going up to 180s and spiking temperature and as soon as she unhooked the TPN she was feeling okay. Because of that she could not give her TPN for last couple of days [employer]ULB BRANDER and she is worried about infection and came to the ER. Patient states that she does TPN 2.8 L including normal saline every night for 14 hours after that she gets 1 L of dextrose. She eats 1 small meal every day in the evening. She is being managed for the following: Bacteremia due to Enterococcus Tachycardia likely due to Sepsis Patient also has h/o POTS Blood cultures from 07/03/23 growing Enterococcus Repeat blood cultures (peripheral) from 07/04/23 and 07/05/23 are negative so far Blood culture (from central line) from 07/04/23 is growing Probable Enterococcus Catheter tip culture from 07/04/23 growing Probable Enterococus and CONS Possible catheter related blood stream infection Central line/catheter removed by Surgeon on 07/04/23 ID evaluation and recommendations noted CONS likely contaminant TTE report did not show significant valvular abnormalities Blood culture from 07/05/23 remains negative Per prior Attending - discussed with ID Dr Parr. Final recs: IV ampicillin till 07/18/23 to complete 14 days from negative culture. Script given to CM Left Int Jugular vein port cath placement 07/09 by gen Giles for IV antibiotics and also patient is TPN dependent F/u cxr w/ no ptx. Pt and family hesitant for PICC line 07/10 that is recommended by infusion company for home iv antibiotic. Reached out to ID 07/10, recs is po zyvox until 07/18/23. c/w iv ampicillin while inpatient, zyvox on dc. Hold home granisetron for duration of zyvox on DC. DC on 600 mg PO BID. GI dysmotility Severe Malnutrition Pharmacy on board for PPN for now Patient reports trial of PEG use even with 10cc of fluid recently had been associated with severe GI symptoms No PEG tube use for now. Will defer that to patient's GI/[employer] outpatient s/p central line . ppn/tpn per pharmacy. History of anemia History of IV iron infusions Hb stable Monitor Hb DVT prophylaxis: Heparin subcu stopped for OR today, will resume kirill. Disposition: Telemetry floor Full code Likely dc kirill. Admission and Anticipated Discharge Date Admission Date: July 04, 2023 Subjective Patient seen and examined at bedside. Status post insertion port catheter x left internal jugular on 07/09/2023. No new complaints. Has chronic nausea and abd pain Pt's parent met at bedside later in the day. Per CM, infusion company stating that her US guided peripheral line is not compliant for antibiotic infusion, patient will be receiving her TPN from central line. Patient and her family at bedside not agreeable for PICC line which infusion company is recommending. They want to explore other options before finalizing on the PICC line. I have reached out to infectious disease, recs is - can use Zyvox for the same duration recommended for IV ampicillin. Checked with pharmacy, will hold Zofran for the duration of Zyvox due to drug drug interaction. Will use Zyvox on discharge. Continue with IV ampicillin while inpatient. Physical Exam Physical Exam: General- Not in acute distress Head- atraumatic Eyes- PERRL. ENT- oropharynx clear Neck- supple, no JVD Lungs- clear to auscultation no wheezing or crackles. Heart- regular rhythm;tachycardia no murmur, no gallop, left sided chest central line seen. No obvious erythema or drainage around line seen. Abdomen- normal bowel sounds, soft, nontender, no distension. G tube site no erythema or drainage seen. Extremities- no pretibial edema, no erythema seen. Neuro- alert, oriented x 3; PERRL, no facial palsy; no dysarthria; moves extremities. Skin- warm & dry Results & Data Results & Data Vital Signs (Past 12 Hours) Vital Signs Temp Pulse Pulse Resp BP Pulse Ox O2 Del Method 07/10/23 15:58 36.8 C 90 16 100/52 L 96 Room Air 07/10/23 12:00 36.4 C L 97 H 16 105/64 96 Room Air 07/10/23 08:00 85 07/10/23 08:00 36.6 C 87 16 93/51 L 97 Room Air (2) Sepsis Sepsis type: sepsis due to unspecified organism Sepsis acute organ dysfunction status: without acute organ dysfunction Qualified Code(s): A41.9 - Sepsis, unspecified organism
[2023-07-10] MEDS ORDERED: [UNRECOGNIZED DRUG - OTHER] IV SCH (20:00)
[2023-07-10] MEDS ORDERED: CENTRAL TPN IV SCH (20:00)
[2023-07-10] MEDS: MONTELUKAST SODIUM 10 MG TABLET PO SCH (20:37)
[2023-07-11] MEDS: AMPICILLIN 2,000 MG in SODIUM CHLOR 0.9% MINI-B 100 ML IV SCH ×4 (00:13→13:16)
[2023-07-11 07:12] LABS: Basophils # (auto) 0.03 K/uL (0.00-0.20); Basophils % (auto) 0.4 %; Eosinophils # (auto) 0.12 K/uL (0.00-0.50); Eosinophils % (auto) 1.4 %; Hematocrit (blood only) 33.2 % (37.0-47.0); Immature Granulocytes # (auto) 0.04 K/uL (0.01-0.20); Immature Granulocytes % (auto) 0.5 %; Lymphocytes # (auto) 3.22 K/uL (1.20-3.40); Lymphocytes % (auto) 38.3 %; Mean Corpuscular Hemoglobin 29.5 pg (25.0-34.0); Mean Corpuscular Hgb Conc 33.1 g/dL (32.0-36.0); Mean Platelet Volume 8.7 fL (9.4-12.4); Monocytes # (auto) 0.59 K/uL (0.11-0.59); Neutrophils % (auto) 52.4 %; Platelet Count 398 K/uL (130-400); RDW Coefficient of Variation 13.1 % (11.5-14.5); RDW Standard Deviation 42.5 fL (36.4-46.3); Red Blood Count 3.73 M/uL (4.20-5.40)
[2023-07-11 07:25] LABS: BUN Creatinine Ratio 29.7 (10-20); Calcium 8.6 mg/dl (8.6-10.3); Creatinine Clr Calc Pharmacy 88.6 ml/min; Est GFR (African American) 130.5 ml/min; Est GFR (Non-African American) 112.6 ml/min; Magnesium 2.2 mg/dl (1.7-2.4); Phosphorus 3.9 mg/dl (2.5-4.9); Potassium 4.2 mmol/L (3.5-5.1)
[2023-07-11] MEDS: FAMOTIDINE 20 MG TAB PO SCH ×2 (08:05→20:56)
[2023-07-11] MEDS: FLUDROCORTISONE ACETATE 0.1 MG TAB PO SCH (08:06)
[2023-07-11] MEDS: CEROVITE ADV FORMULA TAB PO SCH (08:06)
[2023-07-11] MEDS: DEXTROSE 5% 1,000 ML IV SCH (09:19)
[2023-07-11] MEDS: TPN RATE CHANGE SCH ×2 (09:19→21:27)
[2023-07-11] MEDS: LORATADINE 10 MG TAB PO SCH (11:32)
--- NOTE | 2023-07-11 16:04 | Hospitalist Progress Note ---
Date of Service July 11, 2023 Assessment & Plan (1) Bacteremia due to Enterococcus: (2) Sepsis: (3) Tachycardia: Plan: 27-year-old female with past medical history significant for Jaqui-Danlos disease, GI dysmotility currently on TPN, malnutrition, POTS, history of fungemia in June 2021 treated with IV antibiotics and Port-A-Cath exchange, patient is s/p G-tube placement and was on tube feeds for some time but could not tolerate them and currently back on TPN presented with tachycardia. Patient states last couple of days [employer]UFTER [employer] whenever she tried to do TPN her heart rate was going up to 180s and spiking temperature and as soon as she unhooked the TPN she was feeling okay. Because of that she could not give her TPN for last couple of days [employer]UFTER HAND and she is worried about infection and came to the ER. Patient states that she does TPN 2.8 L including normal saline every night for 14 hours after that she gets 1 L of dextrose. She eats 1 small meal every day in the evening. She is being managed for the following: Bacteremia due to Enterococcus Tachycardia likely due to Sepsis Patient also has h/o POTS Blood cultures from 07/03/23 growing Enterococcus Repeat blood cultures (peripheral) from 07/04/23 and 07/05/23 are negative so far Blood culture (from central line) from 07/04/23 is growing Probable Enterococcus Catheter tip culture from 07/04/23 growing Probable Enterococus and CONS Possible catheter related blood stream infection Central line/catheter removed by Surgeon on 07/04/23 ID evaluation and recommendations noted CONS likely contaminant TTE report did not show significant valvular abnormalities Blood culture from 07/05/23 remains negative Per prior Attending - discussed with ID Dr Parr. Final recs: IV ampicillin till 07/18/23 to complete 14 days from negative culture. Script given to CM Left Int Jugular vein port cath placement 07/09 by gen Giles for IV antibiotics and also patient is TPN dependent F/u cxr w/ no ptx. Pt and family hesitant for PICC line 07/10 that is recommended by infusion company for home iv ampicillin. Reached out to ID 07/11, recs is iv dapto until 07/18/23. IV dapto started, will continue on dc. GI dysmotility Severe Malnutrition Pharmacy on board for PPN for now Patient reports trial of PEG use even with 10cc of fluid recently had been associated with severe GI symptoms No PEG tube use for now. 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 ppn/tpn per pharmacy. History of anemia History of IV iron infusions Hb stable Monitor Hb DVT prophylaxis: Heparin subcu stopped for OR today, will resume kirill. Disposition: Telemetry floor Full code Likely dc kirill. Admission and Anticipated Discharge Date Admission Date: July 04, 2023 Subjective Patient seen and examined at bedside. Status post insertion port catheter x left internal jugular on 07/09/2023. No new complaints. Has chronic nausea and abd pain Pt's family at bedside , updated on plan of care. both parents voiced understanding. Physical Exam Physical Exam: General- Not in acute distress Head- atraumatic Eyes- PERRL. ENT- oropharynx clear Neck- supple, no JVD Lungs- clear to auscultation no wheezing or crackles. Heart- regular rhythm;tachycardia no murmur, no gallop, left sided chest central line seen. No obvious erythema or drainage around line seen. Abdomen- normal bowel sounds, soft, nontender, no distension. G tube site no erythema or drainage seen. Extremities- no pretibial edema, no erythema seen. Neuro- alert, oriented x 3; PERRL, no facial palsy; no dysarthria; moves extremities. Skin- warm & dry Results & Data Results & Data Vital Signs (Past 12 Hours) Vital Signs Temp Pulse Pulse Resp BP Pulse Ox O2 Del Method 07/11/23 15:49 36.7 C 99 H 19 91/55 L 96 Room Air 07/11/23 11:34 77 07/11/23 11:29 36.4 C L 88 17 90/51 L 98 Room Air 07/11/23 07:44 36.5 C 88 18 96/55 L 97 Room Air (2) Sepsis Sepsis type: sepsis due to unspecified organism Sepsis acute organ dysfunction status: without acute organ dysfunction Qualified Code(s): A41.9 - Sepsis, unspecified organism
[2023-07-11] MEDS: DAPTOmycin 500 MG in SYRINGE 0 ML IV SCH (16:07)
[2023-07-11] MEDS ORDERED: CENTRAL TPN IV SCH (20:00)
[2023-07-11] MEDS ORDERED: [UNRECOGNIZED DRUG - OTHER] IV SCH (20:00)
[2023-07-11] MEDS: MONTELUKAST SODIUM 10 MG TABLET PO SCH (20:56)
[2023-07-12] MEDS ORDERED: HEPARIN 100 UNIT/ML 5ML FLUSH FLUSH PRN (03:47)
[2023-07-12] MEDS: TPN RATE CHANGE SCH (09:09)
[2023-07-12] MEDS: LORATADINE 10 MG TAB PO SCH (09:09)
[2023-07-12] MEDS: FAMOTIDINE 20 MG TAB PO SCH (09:09)
[2023-07-12] MEDS: CEROVITE ADV FORMULA TAB PO SCH (09:09)
[2023-07-12] MEDS: FLUDROCORTISONE ACETATE 0.1 MG TAB PO SCH (09:09)
[2023-07-12] MEDS: DEXTROSE 5% 1,000 ML IV SCH (09:44)
--- NOTE | 2023-07-12 12:33 | Discharge Summary ---
Date of Service July 12, 2023 Admission HPI Per Admitting Provider 27-year-old female with past medical history significant for Jaqui-Danlos disease, GI dysmotility currently on TPN, malnutrition, POTS, history of fungemia in June 2021 treated with IV antibiotics and Port-A-Cath exchange, patient is s/p G-tube placement and was on tube feeds for some time but could not tolerate them and currently back on TPN presents with tachycardia. Patient states last couple of days whenever she is try to do TPN heart rate was going up to 180s and spiking temperature and as soon as she unhooked the TPN she was feeling okay. Because of that she could not give her TPN for last couple of days and she is worried about infection and came to the ER. Patient states that she does TPN 2.8 L including normal saline every night for 14 hours after that she gets 1 L of dextrose. She eats 1 small meal every day in the evening. Last couple of days she did not eat any meal and she is feeling hungry and she wants to try to eat now. Denies any fevers. Her nausea is same as before. She has a constant chronic abdominal pain about 4/10 in severity. Since yesterday she is having mild headache. Has some chronic cough. Denies any chest pain or shortness of breath. Usually constipated. Not micturating much. In the ER when she came in her heart rate was in 150s. She received 1 L fluid bolus. Current heart rate is in 120s. Resting comfortably. Past medical history. As mentioned above Past surgical history. EGD. EGD with biopsy. IR gastrointestinal ostomy. Mediport. Left knee arthroscopy. Tympanostomy tubes. Social history. No smoking. No alcohol use. No drug use. Family history. Adopted. Admission Exam Per Admitting Provider General- Not in acute distress Head- atraumatic Eyes- PERRL. ENT- oropharynx clear Neck- supple, no JVD Lungs- clear to auscultation no wheezing or crackles. Heart- regular rhythm;tachycardia no murmur, no gallop, Right sided chest central line seen. No obvious erythema or drainage around line seen. Abdomen- normal bowel sounds, soft, nontender, no distension. G tube site no erythema or drainage seen. Extremities- no pretibial edema, no erythema seen. Neuro- alert, oriented x 3; PERRL, no facial palsy; no dysarthria; moves extremities. Skin- warm & dry Principal Diagnosis Bacteremia due to Enterococcus Tachycardia likely due to sepsis GI dysmotility and severe malnutrition, TPN dependent Discharge Exam General- Not in acute distress Head- atraumatic Eyes- PERRL. ENT- oropharynx clear Neck- supple, no JVD Lungs- clear to auscultation no wheezing or crackles. Heart- regular rhythm;tachycardia no murmur, no gallop, left sided chest central line seen. No obvious erythema or drainage around line seen. Abdomen- normal bowel sounds, soft, nontender, no distension. G tube site no erythema or drainage seen. Extremities- no pretibial edema, no erythema seen. Neuro- alert, oriented x 3; PERRL, no facial palsy; no dysarthria; moves extremities. Skin- warm & dry Discharge Data Allergies Allergy/AdvReac Type Severity Reaction Status Date / Time diphenhydramine Allergy Severe Urticaria, Verified 07/03/23 20:55 [From Benadryl] severe anxiety, jittery iron [From Venofer] Allergy Severe Abdominal Verified 07/03/23 20:55 Pain prochlorperazine Allergy Severe Anaphylaxis Verified 07/03/23 20:55 [From Compazine] adhesive Allergy Intermediate Redness, Verified 07/03/23 20:55 swelling gluten Allergy Intermediate Hives, GI Verified 07/03/23 20:55 upset peanut Allergy Intermediate Itchy Verified 07/03/23 20:55 throat tree nut Allergy Intermediate Itchy Verified 07/03/23 20:55 throat pollen extracts Allergy Mild Itchy Verified 07/03/23 20:55 eyes, sneezing, congestion chlorhexidine Allergy Unknown Unknown Verified 07/03/23 20:55 Latex, Natural Rubber AdvReac Intermediate Redness, Verified 07/03/23 20:55 itchy Consultations 07/04/23 00:32 ED Decision to Admit Stat 07/04/23 08:00 Consult Cardiology Routine 07/04/23 08:29 Consult Infectious Diseases Routine 07/08/23 11:50 Consult General Surgery Routine Procedures Performed Operation Date: 07/09/23 10:35 Actual Procedures p Insertion Port Catheter- Left Internal Jugular(Left) - Christa Castañeda MD Ordered Studies 07/03/23 20:55 CT for pulmonary embolism PE [CT angio chest PE protocol] Stat 07/09/23 10:35 FL fluoro (infusaport) to 1 hr Routine Hospital Course (1) Bacteremia due to Enterococcus: (2) Sepsis: (3) Tachycardia: 27-year-old female with past medical history significant for Jaqui-Danlos disease, GI dysmotility currently on TPN, malnutrition, POTS, history of fungemia in June 2021 treated with IV antibiotics and Port-A-Cath exchange, patient is s/p G-tube placement and was on tube feeds for some time but could not tolerate them and currently back on TPN presented with tachycardia. Patient states last couple of days [employer] whenever she tried to do TPN her heart rate was going up to 180s and spiking temperature and as soon as she unhooked the TPN she was feeling okay. Because of that she could not give her TPN for last couple of days [employer] and she is worried about infection and came to the ER. Patient states that she does TPN 2.8 L including normal saline every night for 14 hours after that she gets 1 L of dextrose. She eats 1 small meal every day in the evening. She was managed for the following: Bacteremia due to Enterococcus Tachycardia likely due to Sepsis Patient also has h/o POTS Blood cultures from 07/03/23 growing Enterococcus Repeat blood cultures (peripheral) from 07/04/23 and 07/05/23 are negative so far Blood culture (from central line) from 07/04/23 is growing Probable Enterococcus Catheter tip culture from 07/04/23 growing Probable Enterococus and CONS Possible catheter related blood stream infection Central line/catheter removed by Surgeon on 07/04/23 ID evaluation and recommendations noted CONS likely contaminant TTE report did not show significant valvular abnormalities Blood culture from 07/05/23 remains negative Per prior Attending - discussed with ID Dr Parr. Final recs: IV ampicillin till 07/18/23 to complete 14 days from negative culture. Script given to CM Left Int Jugular vein port cath placement 07/09 by gen Giles for IV antibiotics and also patient is TPN dependent F/u cxr w/ no ptx. Pt and family hesitant for PICC line 07/10 that is recommended by infusion company for home iv ampicillin. Reached out to ID 07/11, recs is iv dapto until 1/5/24. IV dapto started, will continue on dc. GI dysmotility Severe Malnutrition Pharmacy on board for PPN for now Patient reports trial of PEG use even with 10cc of fluid recently had been associated with severe GI symptoms No PEG tube use for now. 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 ppn/tpn per pharmacy. History of anemia History of IV iron infusions Hb stable Monitor Hb DVT prophylaxis: Heparin subcu stopped for OR today, will resume kirill. Disposition: Telemetry floor Full code Likely dc kirill. Patient is being discharged to home with family support with following instruction at the point of discharge: Follow-up with your primary care physician within a week time and likely you will need labs CBC/CMP/magnesium/phosphorus. You were evaluated for bacteremia due to Enterococcus. You are being discharged on IV daptomycin daily until 07/18/2023. While on IV antibiotic, you will need weekly CPK level tested along with CBC/CMP. Continue your TPN and IV fluid hydration as per your prior recommendation, continue to reach out to your outpatient provider for ongoing monitoring/management. Take your medications as prescribed. Please make sure that you are able to get your medications today by calling your pharmacy before you leave the hospital so that your treatment continuity is not broken. Home Health Attestation I certify that this patient is under my care and that I, or a physicians assistant maintenance manager working with me, had a face to-face encounter that meets the home health bhmy-pc-lums encounter requirements with this patient. The encounter with the patient was in whole, or in part, for the following medical condition, which is the primary reason for home health care (list medical condition): I certify that, based on my findings, the following services are medically necessary home health services: My clinical findings support the need for the above services because: Further, I certify that my clinical findings support that this patient is homebound (i.e. absences from home require considerable and taxing effort and are for medical reasons or muslim services or infrequently or of short duration when for other reasons) because: Certification for Home Health Services: Based on the above findings, I certify that this patient is confined to the home and needs intermittent assisted care, physical therapy and/or speech therapy or continues to need occupational therapy. The patient is under my care, and I have initiated the establishment of the plan of care. This patient will be followed by a physician who will periodically review the plan of care. Total Time Total Time Spent Total Time Spent (In Minutes): 45 Discharge Plan Discharge Items Patient Disposition: Home - Self-Care Reason For Visit: TACHYCARDIA Discharge Diagnosis: Bacteremia due to Enterococcus Tachycardia likely due to sepsis GI dysmotility and severe malnutrition, TPN dependent Activity: Resume your previous activity Non-emergency contact: Primary Care Provider Call non-emergency contact if: you have any medication questions, your symptoms worsen and your temperature is above 101 Follow-up/Referrals: Meek Lopez MD [Primary Care Provider] - (Date & Time 07/17/2023 11:20 AM Provider Meek Lopez MD [facility] ) Diet: Other - See Diet Comment Diet Comment: TPN Addtl Attending Provider Instructions: Follow-up with your primary care physician within a week time and likely you will need labs CBC/CMP/magnesium/phosphorus. You were evaluated for bacteremia due to Enterococcus. You are being discharged on IV daptomycin daily until 07/18/2023. While on IV antibiotic, you will need weekly CPK level tested along with CBC/CMP. Continue your TPN and IV fluid hydration as per your prior recommendation, continue to reach out to your outpatient provider for ongoing monitoring/management. Take your medications as prescribed. Please make sure that you are able to get your medications today by calling your pharmacy before you leave the hospital so that your treatment continuity is not broken. Pending Studies at Discharge: No Stand-Alone Forms: [facility] [employer], Smoking Cessation Medications and DC Order Prescriptions: New Cerovite Senior 0.4 mg-300 mcg- 250 mcg Tablet 1 tab PO DAILY Qty: 30 0RF daptomycin 500 mg recon soln 500 mg IV DAILY 6 Days Rx Instructions: administer over 30 mins Continued ondansetron HCl 8 mg tablet 8 mg PO Q8 PRN (Reason: Nausea) famotidine 20 mg tablet 20 mg PO BID montelukast [Singulair] 10 mg Tablet 10 mg PO HS fludrocortisone 0.1 mg tablet 0.1 mg PO QAM loratadine 10 mg Tablet 10 mg PO QAM Linzess 145 mcg Capsule 145 mcg PO QAM PRN (Reason: Constipation) granisetron HCl [Kytril] 1 mg Tablet 1 mg PO Q12H cholecalciferol (vitamin D3) 1,250 mcg (50,000 unit) capsule 1,250 mcg PO WK Rx Instructions: sundays Discharge Orders: Discharge Order (Routine); Ordered 07/12/23 Ordered By: Kelly Rodriguez Admission Data Admit Date/Time: 07/04/23 01:15 Attending Provider: Kelly Rodriguez Admit Provider: Sumit Figueredo Primary Care Provider: Meek Lopez Other Providers: Sumit Figueredo; Tahir Up; Tiffani Villatoro; Miles Galeano I.; Kenny Alcazar II; Amee Faustin; Chaz Barajas; Roger Weaver; Bhaskar Parr; Christa Castañeda
[2023-07-12] MEDS: DAPTOmycin 500 MG in SYRINGE 0 ML IV SCH (12:49)
[2023-07-13] MEDS ORDERED: ERGOCALCIFEROL 50,000 UNITS 1250 MCG CAP PO SCH ×2 (09:00)
== END 2023-07-12 13:58 | disposition home or self-care (01) | DRG 314 ==
LOC: ED 17:48 → SUATTDRO 07-04 01:15 → 4W 07-04 01:15

== ENCOUNTER 2024-05-21 00:02 | Inpatient (IN) ==
[2024-05-21] MEDS ORDERED: VANCOMYCIN CONSULT ACTIVE PRN (00:29)
[2024-05-21 01:29] LABS: Basophils # (auto) 0.02 K/uL (0.00-0.20); Basophils % (auto) 0.4 %; Hematocrit (blood only) 35.7 % (37.0-47.0); Immature Granulocytes # (auto) 0.01 K/uL (0.01-0.20); Immature Granulocytes % (auto) 0.2 %; Lymphocytes % (auto) 17.4 %; Mean Corpuscular Hemoglobin 30.8 pg (25.0-34.0); Mean Corpuscular Hgb Conc 33.6 g/dL (32.0-36.0); Mean Corpuscular Volume 91.5 fL (80.0-100.0); Mean Platelet Volume 8.7 fL (9.4-12.4); Monocytes # (auto) 0.29 K/uL (0.11-0.59); Monocytes % (auto) 6.3 %; Neutrophils # (auto) 3.48 K/uL (1.40-6.50); Neutrophils % (auto) 75.7 %; Platelet Count 232 K/uL (130-400); RDW Coefficient of Variation 12.2 % (11.5-14.5); RDW Standard Deviation 40.8 fL (36.4-46.3)
--- NOTE | 2024-05-21 01:30 | Emergency Department Note ---
History of Present Illness General Chief complaint: Fever Stated complaint: FEVER,CHILLS,PORT SITE HURTS Time Seen by Provider: 05/21/24 00:21 History of Present Illness Provider complaint: Fever cellulitis Maximum Pain Intensity: 7 28-year-old female presents emergency department for fever and cellulitis. Patient reports she was discharged from the emergency department 6 hours ago. She states she has had redness around her Mediport in her left chest. She states when she got home she developed a fever and felt worse so she came back to the emergency department. She reports no cough. No difficulty breathing. No abdominal pain. Patient states she has a history of multiple infections and a G-tube previously. Patient did not take any Tylenol prior to arrival. Home Medications Medication Instructions Recorded Confirmed Type famotidine 20 mg tablet 20 mg PO BID 04/09/21 05/19/24 History fludrocortisone 0.1 mg tablet 0.1 mg PO QAM 04/09/21 05/19/24 History loratadine 10 mg tablet 10 mg PO QAM 04/09/21 05/19/24 History montelukast 10 mg tablet 10 mg PO HS 04/09/21 05/19/24 History (Singulair) ondansetron HCl 8 mg tablet 8 mg PO Q8 PRN Nausea 04/09/21 05/19/24 History linaclotide 145 mcg capsule 145 mcg PO QAM PRN Constipation 01/02/22 05/19/24 History (Linzess) cholecalciferol (vitamin D3) 1,250 1,250 mcg PO WK 01/13/23 05/19/24 History mcg (50,000 unit) capsule xoppfjpb-ibu-obndd acid 0.4 1 tab PO DAILY #30 tabs 07/12/23 05/19/24 Rx mg-lycopene 300 mcg-lutein 250 mcg tablet (Cerovite Senior) granisetron HCl 1 mg tablet 1 mg PO Q12H 09/23/23 05/19/24 History hydroxyzine HCl 10 mg tablet 10 mg PO TID 09/23/23 05/19/24 History oxcarbazepine 300 mg/5 mL (60 300 mg BID 09/23/23 05/19/24 History mg/mL) oral suspension olanzapine 2.5 mg tablet 2.5 mg PO DAILY 12/17/23 05/19/24 History cephalexin 500 mg tablet 500 mg PO QID 5 days #20 tabs 05/20/24 Rx Allergies Allergy/AdvReac Type Severity Reaction Status Date / Time diphenhydramine Allergy Severe Urticaria, Verified 05/19/24 13:57 [From Benadryl] severe anxiety, jittery iron [From Venofer] Allergy Severe Abdominal Verified 05/19/24 13:57 Pain prochlorperazine Allergy Severe Anaphylaxis Verified 05/19/24 13:57 [From Compazine] adhesive Allergy Intermediate Redness, Verified 05/19/24 13:57 swelling gluten Allergy Intermediate Hives, GI Verified 05/19/24 13:57 upset peanut Allergy Intermediate Itchy Verified 05/19/24 13:57 throat tree nut Allergy Intermediate Itchy Verified 05/19/24 13:57 throat pollen extracts Allergy Mild Itchy Verified 05/19/24 13:57 eyes, sneezing, congestion chlorhexidine Allergy Unknown Unknown Verified 05/19/24 13:57 Latex, Natural Rubber AdvReac Intermediate Redness, Verified 05/19/24 13:57 itchy Past Med/Surg History Problem List (Updated 05/21/24 @ 03:14 by Jesus Mendosa MD) Cellulitis (Acute) Acute chest wall pain (Acute) Bacteremia due to Enterococcus Sepsis Tachycardia (Acute) Central venous catheter in place broke- clamped in ER, taped around site Fungemia DVT prophylaxis Encounter for pre-operative examination (~02/07/23) Gastrointestinal dysmotility Close exposure to COVID-19 virus (Acute) Iron deficiency (Acute) Symptomatic anemia (Acute) Chronic pain POTS (postural orthostatic tachycardia syndrome) History of esophagogastroduodenoscopy (EGD) Severe malnutrition Abdominal pain, chronic, epigastric (Acute) chronic On total parenteral nutrition (TPN) Jaqui-Danlos disease Dx several years ago Medical History Gastrointestinal dysmotility Reactive hypoglycemia dexcom present to left arm Anemia Neuropathy legs Gastroparesis History of COVID-19 02/2022, not hospitalized 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 Jejunostomy tube present placed October 2020 Surgical History History of myringotomy History of surgery (06/24/21) Removal of Right Tunneled Central Line in Internal Jugular Catheter H/O wisdom tooth extraction H/O wrist surgery right S/P knee surgery Left Family History Other Adopted Social History Smoking Status: Never smoker Second Hand Exposure: No; Do You Dip or Chew Tobacco: No; Hx Alcohol Use: Yes Alcohol type: hard liquor Hx Substance Use: No Preferred Language: Tamazight Communication Ability: Effective Infant Caregiver Required: No Beliefs That Will Affect Care: None Current Living Situation: Family Current Living Situation Comment: Lives w/ family at home Feels Safe at Home: Yes Assistive Devices: None Physical Exam Vital Signs Vital Signs - 24 hr 05/21/24 00:03 05/21/24 00:10 05/21/24 00:21 Temperature 38.0 C H 38.1 C H Temperature Source Oral Oral Pulse Rate 134 H 122 H Pulse Rate [Left] 126 H Pulse Rhythm Regular Respiratory Rate 18 18 Respiratory Effort / Characteristics Non-Labored Spontaneous Respiratory Depth Normal Respiratory Pattern Regular Blood Pressure 125/89 Blood Pressure [Right Arm] 124/83 Blood Pressure Mean 101 Blood Pressure Mean [Right Arm] 96 Blood Pressure Position [Right Arm] Lying Pulse Oximetry 98 97 96 Oxygen Delivery Method Room Air Room Air Room Air Sepsis Recent Fever Within 48 Hours No Sepsis New/Unexplained Change in Mental Status No Sepsis Action Taken by Nursing No Action Required 05/21/24 01:08 Temperature Temperature Source Pulse Rate 118 H Pulse Rate [Left] Pulse Rhythm Respiratory Rate Respiratory Effort / Characteristics Respiratory Depth Respiratory Pattern Blood Pressure Blood Pressure [Right Arm] Blood Pressure Mean Blood Pressure Mean [Right Arm] Blood Pressure Position [Right Arm] Pulse Oximetry Oxygen Delivery Method Sepsis Recent Fever Within 48 Hours Sepsis New/Unexplained Change in Mental Status Sepsis Action Taken by Nursing Physical Exam HENT: Exam performed. -Head: Normocephalic and atraumatic. -Right Ear: External ear normal. No mastoid erythema -Left Ear: External ear normal. No mastoid erythema -Mouth/Throat: The oropharynx is clear and moist. No trismus in the jaw. No dental abscesses or uvula swelling. No oropharyngeal exudate or tonsillar abscesses. EYES: Conjunctivae and EOM are normal. Pupils are equal, round, and reactive to light. Right eye exhibits no discharge. Left eye exhibits no discharge. No scleral icterus. NECK: Normal range of motion. Neck supple. No JVD present. CV: Tachycardic rate, regular rhythm, normal heart sounds and intact distal pulses. There is no peripheral edema. Palpable radial pulses bue. PULM/CHEST: Effort normal and breath sounds normal. No respiratory distress. No stridor. She has no wheezes. She has no rales. -Chest Wall: Permacath present in the left chest with surrounding erythema and warmth. No crepitus. No vesicles. Nikolsky negative. ABD: The abdomen is soft. There is no tenderness. There is no rebound, no guarding. G-tube in place. MUSC/SKEL: Normal range of motion. There is no peripheral edema, tenderness or deformity. LYMPH: No cervical adenopathy. NEURO: She is alert and oriented to person, place, and time. She has normal strength. No cranial nerve deficit or sensory deficit. Coordination and gait normal. GCS eye subscore is 4. GCS verbal subscore is 5. GCS motor subscore is 6. Cerebellar tests wnl. Course Course 0021: The patient was evaluated in room B10. A complete history and physical exam was performed Cardiac monitoring: An order was placed for continuous cardiac monitoring. The monitor shows a rate of 130 with sinus tachycardia rhythm interpreted by wa Sepsis protocols initiated. External medical records reviewed. Patient was seen in the emergency department discharged approximately 6 hours ago. Patient was diagnosed with cellulitis around her port. At her previous emergency department visit her chest x-ray is negative. White blood cell count was normal. Lactate was normal. Procalcitonin was 0.13. Patient was treated with Rocephin discharged with prescription Keflex. Patient will give a dose of vancomycin. We will give the patient IV fluids based off her weight for sepsis given her tachycardia and fever. Will plan on admitting the patient to the hospital service. 313: Vital signs stable. Labs unremarkable. Patient mated to getting her hospitalist team for cellulitis/infected Mediport. Dr. Berumen's team aware. Administered Medications Magnesium Sulfate/Dextrose (Magnesium Sulfate / D5w) 1 gm in 100 mls @ 50 mls/hr IV ONE ONE Stop: 05/21/24 04:05 Last Admin: 05/21/24 02:54 Dose: 50 mls/hr Documented By: [facility] Potassium Chloride/Sodium Chloride (Normal Saline W/20 Meq Kcl) 20 meq in 1,000 mls @ 100 mls/hr IV .Q10H ONE Stop: 05/21/24 12:06 Last Admin: 05/21/24 02:54 Dose: 100 mls/hr Documented By: MATHEUS Discontinued Medications Sodium Chloride (Nss) 1,000 mls @ 999 mls/hr IV .Q1H1M ZULY Stop: 05/21/24 02:30 Last Admin: 05/21/24 01:54 Dose: 999 mls/hr Documented By: MATHEUS Vancomycin HCl 1,000 mg/ (Dextrose) 520 mls @ 200 mls/hr IV NOW ONE Stop: 05/21/24 03:04 Last Admin: 05/21/24 02:16 Dose: 200 mls/hr Documented By: Acetaminophen (Ofirmev) 1,000 mg in 100 mls @ 400 mls/hr IV NOW STA Stop: 05/21/24 00:43 Last Infusion: 05/21/24 02:15 Dose: Infused Documented By: Admin: 05/21/24 01:49 Dose: 400 mls/hr Documented By: MATHEUS Medical Decision Making Medical Records Attestation: I reviewed the patient's medical records. External medical records reviewed. Patient was seen in the emergency department discharged approximately 6 hours ago. Patient was diagnosed with cellulitis around her port. At her previous emergency department visit her chest x-ray is negative. White blood cell count was normal. Lactate was normal. Procalcitonin was 0.13. Patient was treated with Rocephin discharged with prescription Keflex. Laboratory Data Attestation: I reviewed the patient's lab results. 05/21/24 01:10 05/21/24 01:10 Lab Results 05/21/24 Range/Units 01:10 WBC 4.60 L (4.8-10.8) K/ul RBC 3.90 L (4.20-5.40) M/uL Hgb 12.0 (12.0-16.0) g/dl Hct 35.7 L (37.0-47.0) % MCV 91.5 (80.0-100.0) fL MCH 30.8 (25.0-34.0) pg MCHC 33.6 (32.0-36.0) g/dL RDW Std Deviation 40.8 (36.4-46.3) fL RDW Coeff of Priscilla 12.2 (11.5-14.5) % Plt Count 232 (130-400) K/uL MPV 8.7 L (9.4-12.4) fL Immature Gran % (Auto) 0.2 % Neut % (Auto) 75.7 % Lymph % (Auto) 17.4 % [place] % (Auto) 6.3 % Eos % (Auto) 0.0 % Baso % (Auto) 0.4 % Neut # (Auto) 3.48 (1.40-6.50) K/uL Lymph # (Auto) 0.80 L (1.20-3.40) K/uL [place] # (Auto) 0.29 (0.11-0.59) K/uL Eos # (Auto) 0.00 (0.00-0.50) K/uL Baso # (Auto) 0.02 (0.00-0.20) K/uL Immature Gran # (Auto) 0.01 (0.01-0.20) K/uL Sodium 137 (136-145) mmol/L Potassium 3.5 (3.5-5.1) mmol/L Chloride 109 H (98-107) mmol/L Carbon Dioxide 19 L (21-32) mmol/L Anion Gap 9 (3-11) BUN 7 (6-23) mg/dl Creatinine 0.63 (0.6-1.2) mg/dl Est Cr Clr Drug Dosing 104.7 ml/min eGFR 125.39 BUN/Creatinine Ratio 11.1 (10-20) Glucose 89 (70-99(Fasting)) mg/dl Lactate 0.8 (0.4-2.0) mmol/L Calcium 8.2 L (8.6-10.3) mg/dl Magnesium 1.8 (1.7-2.4) mg/dl Total Bilirubin 0.4 (0.2-1.0) mg/dl Direct Bilirubin 0.1 (0-0.2) mg/dl AST 71 H (13-39) U/L ALT 58 H (7-52) U/L Alkaline Phosphatase 79 (34-104) U/L Troponin I High Sens 4.0 (0-14) pg/ml Total Protein 6.3 (6.0-8.3) gm/dl Albumin 3.6 (3.4-5.0) gm/dl Procalcitonin 0.13 (0-0.5) ng/ml [facility] Narrative 0021: The patient was evaluated in room B10. A complete history and physical exam was performed Cardiac monitoring: An order was placed for continuous cardiac monitoring. The monitor shows a rate of 130 with sinus tachycardia rhythm interpreted by wa Sepsis protocols initiated. External medical records reviewed. Patient was seen in the emergency department discharged approximately 6 hours ago. Patient was diagnosed with cellulitis around her port. At her previous emergency department visit her chest x-ray is negative. White blood cell count was normal. Lactate was normal. Procalcitonin was 0.13. Patient was treated with Rocephin discharged with prescription Keflex. Patient will give a dose of vancomycin. We will give the patient IV fluids based off her weight for sepsis given her tachycardia and fever. Will plan on admitting the patient to the hospital service. 313: Vital signs stable. Labs unremarkable. Patient mated to getting her hospitalist team for cellulitis/infected Mediport. Dr. Berumen's team aware. Impression & Plan Cellulitis Discharge Plan Visit Data Chief Complaint: Fever Stated Complaint: FEVER,CHILLS,PORT SITE HURTS ED Provider: Jesus Mendosa Discharge Problem: Cellulitis Patient Disposition: Being Evaluated by Hospitalist Forms Stand Alone Forms: [facility] Prescriptions Prescriptions: No Action ondansetron HCl 8 mg tablet 8 mg PO Q8 PRN (Reason: Nausea) famotidine 20 mg tablet 20 mg PO BID montelukast [Singulair] 10 mg Tablet 10 mg PO HS fludrocortisone 0.1 mg tablet 0.1 mg PO QAM loratadine 10 mg Tablet 10 mg PO QAM Linzess 145 mcg Capsule 145 mcg PO QAM PRN (Reason: Constipation) granisetron HCl 1 mg Tablet 1 mg PO Q12H oxcarbazepine 300 mg/5 mL (60 mg/mL) Suspension 300 mg BID hydroxyzine HCl 10 mg Tablet 10 mg PO TID olanzapine 2.5 mg Tablet 2.5 mg PO DAILY cholecalciferol (vitamin D3) 1,250 mcg (50,000 unit) capsule 1,250 mcg PO WK Rx Instructions: sundays Cerovite Senior 0.4 mg-300 mcg- 250 mcg Tablet 1 tab PO DAILY Qty: 30 0RF cephalexin 500 mg tablet 500 mg PO QID 5 Days Qty: 20 0RF Referrals Referrals: Meek Lopez MD [Primary Care Provider] - Discharge Problem: Cellulitis Qualifiers: Site of cellulitis: trunk Site of cellulitis of trunk: chest wall Qualified Code(s): L03.313 - Cellulitis of chest wall
[2024-05-21 01:48] LABS: Albumin Level 3.6 gm/dl (3.4-5.0); BUN Creatinine Ratio 11.1 (10-20); Bilirubin Direct 0.1 mg/dl (0-0.2); Bilirubin,Total 0.4 mg/dl (0.2-1.0); Calcium 8.2 mg/dl (8.6-10.3); Creatinine Clr Calc Pharmacy 104.7 ml/min; Magnesium 1.8 mg/dl (1.7-2.4); Potassium 3.5 mmol/L (3.5-5.1); Total Protein 6.3 gm/dl (6.0-8.3)
[2024-05-21] MEDS: ACETAMINOPHEN 1,000 MG/100 ML VIAL IV STA ×2 (01:49→22:34)
[2024-05-21] MEDS: SODIUM CHLORIDE 0.9% 1,000 ML IV SCH (01:54)
--- NOTE | 2024-05-21 02:15 | History & Physical Report ---
Date of Service May 21, 2024 Assessment & Plan (1) Sepsis: Plan: Secondary to left chest wall/a port site cellulitis hx POTS, on fludrocortisone Jaqui-Danlos disease Abnormal LFTs, chronic abdominal pain as per patient GERD, on Pepcid GI dysmotility on TPN Medical telemetry CS, cefepime and doxycycline Follow LFTs, liver ultrasound DVT prophylaxis. Lovenox subcu Full code Patient father requesting updates providers. Mr. Lazaro Mccarthy, contact #[phone]. Text document was generated using [employer] voice recognition software. It may contain grammatical or spelling errors. Kindly contact undersigned for clarification of any documentation item in question. History of Present Illness Chief Complaint: Worsening port swelling/chills, pain Primary Care Provider: Meek Lopez MD History obtained from patient, family, and records. Medical history significant for POTS, Jaqui-Danlos disease, chronic abdominal pain, GERD, H. pylori infection as per records, GI dysmotility on TPN. Last confinement June 2023 for enterococcal septicemia secondary to catheter related bloodstream infection. Patient's Chao catheter removed by surgery. A port placed during confinement. Patient noted pain on a port site on left chest wall during access at [facility] 2 days ago. Low-grade fever noted. Achy chest discomfort without SOB. No cough symptoms, usual abdominal pain. Patient consulted ER yesterday. Ceftriaxone given at the ER for A port cellulitis. Patient discharged on Keflex course. Patient return to ER due to increasing redness and pain around Mediport with fever. Vancomycin administered at the ER. Medical History as above Surgical History : Vascular procedures, tendon sheath/wrist surgery, GJ tube placement, knee surgery, tympanostomy tube placement Family History : Unknown as patient was adopted Personal/Social history : Non-smoker, no EtOH intake Allergies Allergy/AdvReac Type Severity Reaction Status Date / Time diphenhydramine Allergy Severe Urticaria, Verified 05/19/24 13:57 [From Benadryl] severe anxiety, jittery iron [From Venofer] Allergy Severe Abdominal Verified 05/19/24 13:57 Pain prochlorperazine Allergy Severe Anaphylaxis Verified 05/19/24 13:57 [From Compazine] adhesive Allergy Intermediate Redness, Verified 05/19/24 13:57 swelling gluten Allergy Intermediate Hives, GI Verified 05/19/24 13:57 upset peanut Allergy Intermediate Itchy Verified 05/19/24 13:57 throat tree nut Allergy Intermediate Itchy Verified 05/19/24 13:57 throat pollen extracts Allergy Mild Itchy Verified 05/19/24 13:57 eyes, sneezing, congestion chlorhexidine Allergy Unknown Unknown Verified 05/19/24 13:57 Latex, Natural Rubber AdvReac Intermediate Redness, Verified 05/19/24 13:57 itchy Home Medications Medication Instructions Recorded Confirmed Type famotidine 20 mg tablet 20 mg PO BID 04/09/21 05/21/24 History fludrocortisone 0.1 mg tablet 0.1 mg PO QAM 04/09/21 05/21/24 History loratadine 10 mg tablet 10 mg PO QAM 04/09/21 05/21/24 History montelukast 10 mg tablet 10 mg PO HS 04/09/21 05/21/24 History (Singulair) ondansetron HCl 8 mg tablet 8 mg PO Q8 PRN Nausea 04/09/21 05/21/24 History linaclotide 145 mcg capsule 145 mcg PO QAM PRN Constipation 01/02/22 05/21/24 History (Linzess) cholecalciferol (vitamin D3) 1,250 1,250 mcg PO WK 01/13/23 05/21/24 History mcg (50,000 unit) capsule granisetron HCl 1 mg tablet 1 mg PO Q12H 09/23/23 05/21/24 History hydroxyzine HCl 10 mg tablet 50 mg PO QID PRN Other 09/23/23 05/21/24 History olanzapine 2.5 mg tablet 2.5 mg PO DAILY 12/17/23 05/21/24 History baclofen 10 mg tablet 10 mg PO BID 05/21/24 05/21/24 History cephalexin 500 mg tablet 500 mg PO UD 05/21/24 05/21/24 History cyanocobalamin (vitamin B-12) 1,000 mcg IM MONTHLY 05/21/24 05/21/24 History 1,000 mcg/mL injection solution duloxetine 20 mg capsule,delayed 20 mg PO DAILY 05/21/24 05/21/24 History release Past Med/Surg History Problem List (Updated 05/21/24 @ 03:14 by Jesus Mendosa MD) Cellulitis (Acute) Acute chest wall pain (Acute) Bacteremia due to Enterococcus Sepsis Tachycardia (Acute) Central venous catheter in place broke- clamped in ER, taped around site Fungemia DVT prophylaxis Encounter for pre-operative examination (~02/07/23) Gastrointestinal dysmotility Close exposure to COVID-19 virus (Acute) Iron deficiency (Acute) Symptomatic anemia (Acute) Chronic pain POTS (postural orthostatic tachycardia syndrome) History of esophagogastroduodenoscopy (EGD) Severe malnutrition Abdominal pain, chronic, epigastric (Acute) chronic On total parenteral nutrition (TPN) Jaqui-Danlos disease Dx several years ago Medical History Gastrointestinal dysmotility Reactive hypoglycemia dexcom present to left arm Anemia Neuropathy legs Gastroparesis History of COVID-19 02/2022, not hospitalized 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 Jejunostomy tube present placed October 2020 Surgical History History of myringotomy History of surgery (06/24/21) Removal of Right Tunneled Central Line in Internal Jugular Catheter H/O wisdom tooth extraction H/O wrist surgery right S/P knee surgery Left Family History Other Adopted Social History Smoking Status: Never smoker Second Hand Exposure: No; Do You Dip or Chew Tobacco: No; Hx Alcohol Use: Yes Alcohol type: hard liquor Hx Substance Use: No Preferred Language: Sami Communication Ability: Effective Crane Operator Required: No Beliefs That Will Affect Care: None Current Living Situation: Family Current Living Situation Comment: Lives w/ family at home Feels Safe at Home: Yes Assistive Devices: None Review of Systems Review of Systems: As per HPI, all other systems reviewed and negative Physical Exam Physical Exam: GENERAL: Comfortable, pleasant, no respiratory distress SKIN: Normal color, warm HEENT: [place] palpebral conjunctivae, no ptosis, dry buccal mucosa NECK : Supple, no tenderness CHEST : CTA, tender erythematous swelling over left A port HEART : Tachycardic, no obvious murmurs ABDOMEN: Some distention, nontender EXTREMITIES : No LE swelling/tenderness, no other conspicuous deformities noted NEUROLOGIC : Coherent, no facial asymmetry, no other gross focality Results & Data Results & Data Vital Signs (Past 12 Hours) Vital Signs Temp Pulse Pulse Resp BP BP Pulse Ox 05/21/24 01:08 118 H 05/21/24 00:21 122 H 18 96 05/21/24 00:10 38.1 C H 134 H 125/89 97 05/21/24 00:03 38.0 C H 126 H 18 124/83 98 O2 Del Method 05/21/24 01:08 05/21/24 00:21 Room Air 05/21/24 00:10 Room Air 05/21/24 00:03 Room Air Laboratory Results Laboratory Results WBC 4.60 K/ul (4.8-10.8) L 05/21/24 01:10 RBC 3.90 M/uL (4.20-5.40) L 05/21/24 01:10 Hgb 12.0 g/dl (12.0-16.0) 05/21/24 01:10 Hct 35.7 % (37.0-47.0) L 05/21/24 01:10 MCV 91.5 fL (80.0-100.0) 05/21/24 01:10 MCH 30.8 pg (25.0-34.0) 05/21/24 01:10 MCHC 33.6 g/dL (32.0-36.0) 05/21/24 01:10 RDW Std Deviation 40.8 fL (36.4-46.3) 05/21/24 01:10 RDW Coeff of Priscilla 12.2 % (11.5-14.5) 05/21/24 01:10 Plt Count 232 K/uL (130-400) 05/21/24 01:10 MPV 8.7 fL (9.4-12.4) L 05/21/24 01:10 Immature Gran % (Auto) 0.2 % 05/21/24 01:10 Neut % (Auto) 75.7 % 05/21/24 01:10 Lymph % (Auto) 17.4 % 05/21/24 01:10 [place] % (Auto) 6.3 % 05/21/24 01:10 Eos % (Auto) 0.0 % 05/21/24 01:10 Baso % (Auto) 0.4 % 05/21/24 01:10 Neut # (Auto) 3.48 K/uL (1.40-6.50) 05/21/24 01:10 Lymph # (Auto) 0.80 K/uL (1.20-3.40) L 05/21/24 01:10 [place] # (Auto) 0.29 K/uL (0.11-0.59) 05/21/24 01:10 Eos # (Auto) 0.00 K/uL (0.00-0.50) 05/21/24 01:10 Baso # (Auto) 0.02 K/uL (0.00-0.20) 05/21/24 01:10 Immature Gran # (Auto) 0.01 K/uL (0.01-0.20) 05/21/24 01:10 Sodium 137 mmol/L (136-145) 05/21/24 01:10 Potassium 3.5 mmol/L (3.5-5.1) 05/21/24 01:10 Chloride 109 mmol/L (98-107) H 05/21/24 01:10 Carbon Dioxide 19 mmol/L (21-32) L 05/21/24 01:10 Anion Gap 9 (3-11) 05/21/24 01:10 BUN 7 mg/dl (6-23) 05/21/24 01:10 Creatinine 0.63 mg/dl (0.6-1.2) 05/21/24 01:10 Est Cr Clr Drug Dosing 104.7 ml/min 05/21/24 01:10 eGFR 125.39 05/21/24 01:10 BUN/Creatinine Ratio 11.1 (10-20) 05/21/24 01:10 Glucose 89 mg/dl (70-99(Fasting)) 05/21/24 01:10 Lactate 0.8 mmol/L (0.4-2.0) 05/21/24 01:10 Calcium 8.2 mg/dl (8.6-10.3) L 05/21/24 01:10 Magnesium 1.8 mg/dl (1.7-2.4) 05/21/24 01:10 Total Bilirubin 0.4 mg/dl (0.2-1.0) 05/21/24 01:10 Direct Bilirubin 0.1 mg/dl (0-0.2) 05/21/24 01:10 AST 71 U/L (13-39) H 05/21/24 01:10 ALT 58 U/L (7-52) H 05/21/24 01:10 Alkaline Phosphatase 79 U/L (34-104) 05/21/24 01:10 Troponin I High Sens 4.0 pg/ml (0-14) 05/21/24 01:10 Total Protein 6.3 gm/dl (6.0-8.3) 05/21/24 01:10 Albumin 3.6 gm/dl (3.4-5.0) 05/21/24 01:10 Procalcitonin 0.13 ng/ml (0-0.5) 05/21/24 01:10 CT chest: Unremarkable study No obvious abnormality seen adjacent to the port site. Complete resolution of prior right lower lobe patchy ground-glass opacity. Diagnostic Findings EKG as per my interpretation :Rate 140, sinus tachycardia, normal axis, T wave abnormalities inferior and anterolateral leads (1) Sepsis Sepsis acute organ dysfunction status: without acute organ dysfunction Sepsis type: sepsis due to unspecified organism Qualified Code(s): A41.9 - Sepsis, unspecified organism
[2024-05-21] MEDS: VANCOMYCIN HCL IV ONE (02:16)
[2024-05-21] MEDS: DEXTROSE 5% IV ONE (02:16)
[2024-05-21] MEDS ORDERED: METOCLOPRAMIDE HCL INJ 5 MG/ML 2 ML VIAL IV PRN (02:40)
[2024-05-21] MEDS ORDERED: KETOROLAC TROMETHAMINE 15 MG/ML VIAL IV PRN (02:41)
[2024-05-21] MEDS ORDERED: traMADol HCL 50 MG TABLET PO PRN (02:41)
[2024-05-21] MEDS ORDERED: LINACLOTIDE 145 MCG CAPSULE PO PRN (02:42)
[2024-05-21] MEDS: MAGNESIUM SULFATE / D5W 1 GM/100 ML BAG IV ONE ×2 (02:54→22:37)
[2024-05-21] MEDS: NSS + 20MEQ KCL 20 MEQ/1,000 ML BAG IV ONE (02:54)
[2024-05-21] MEDS: OPTIRAY 320 100ml IV ONE (03:34)
[2024-05-21 03:54] LABS: Appearance Urine Clear (Clear); Bilirubin Urine Negative (Negative); Blood Urine Negative (Negative); Color Urine Yellow; Glucose Urine UA Negative (Negative); Ketones Urine 3+ (Negative); Leukocyte Esterase Urine Negative (Negative); Nitrite Urine Negative (Negative); Protein Urine Negative (Negative); Specific Gravity Urine 1.014 (1.000-1.030); Urobilinogen Urine Negative (Negative)
--- NOTE | 2024-05-21 04:50 | CT Scan Report ---
EXAM: CT chest diagnostic w con CLINICAL HISTORY: SWELLING AT LEFT CHEST AROUND PORT SITE, 93 ML OPTIRAY 320 INPATIENT TECHNIQUE: Contiguous axial images were obtained from the neck base through the upper abdomen following intravenous administration of contrast material. If IV contrast material had not been administered, the likelihood of detecting abnormalities relevant to the patient's condition would have been substantially decreased. In addition, sagittal and coronal reconstructions were performed. CT scan was performed according to ALARA (as low as reasonable achievable). COMPARISON: 03 July 2023. FINDINGS: The lungs are clear, with no focal areas of consolidation. No pulmonary nodules are seen. The central airways are patent. There are no pleural effusions. No pneumothorax is seen. No axillary, hilar, or mediastinal adenopathy is identified. The visualized thyroid is unremarkable. The heart, aorta, and pulmonary arteries are of normal size and configuration. No pericardial effusion is identified. Imaged portions of the upper abdomen are unremarkable. No aggressive appearing osseous lesions are identified. IMPRESSION: Unremarkable study No obvious abnormality seen adjacent to the port site. Complete resolution of prior right lower lobe patchy ground-glass opacity. Electronically signed by Josep Romano 05-21-2024 04:50 AM
[2024-05-21] MEDS ORDERED: TPN/PPN CONSULT PHARMACY PRN (05:10)
[2024-05-21] MEDS: POTASSIUM CHLORIDE CRTAB 20 MEQ TABCR PO STA (05:23)
[2024-05-21] MEDS: CEFEPIME 2000MG 2,000 MG/20 ML SYR IV STA ×2 (05:26→05:27)
--- NOTE | 2024-05-21 07:51 | Ultrasound Report ---
EXAM: US liver CLINICAL HISTORY: HX: NO PREV. ELEVATED LFTs PANC: WNL SEEN. LIVER: 16.8 cm. WNL. GB: WALL 1.5 mm. WNL. NEGATIVE BISHOP''S SIGN. CBD: 5.2 mm. RT KID: NO HYDRO. PROMINENT PELVIS INPATIENT TECHNIQUE: Ultrasound of the limited abdomen was performed in greyscale and Doppler. COMPARISON: No prior studies are available for comparison. FINDINGS: Liver: Liver size: Liver appears max upper normal limits in size (16.8cm) with homogeneous echotexture. No evidence of focal lesions, cysts, or masses. Hepatic vasculature appears normal. Gallbladder: Gallbladder size: Gallbladder is visualized and appears normal in size and shape. No gallstones, wall thickening, or pericholecystic fluid noted.[Wall thickness 1.5 mm] No evidence of gallbladder wall edema or signs of acute cholecystitis. Biliary Tree: Common bile duct diameter: The common bile duct is within normal limits in caliber and not dilated measuring 4.6 mm. No evidence of choledocholithiasis or biliary obstruction. IMPRESSION: Normal liver and gallbladder ultrasound. No focal hepatic lesions or gallstones were identified. Electronically signed by Jil Velázquez 05-21-2024 07:50 AM
[2024-05-21 08:53] LABS: Basophils # (auto) 0.01 K/uL (0.00-0.20); Basophils % (auto) 0.3 %; Eosinophils # (auto) 0.01 K/uL (0.00-0.50); Eosinophils % (auto) 0.3 %; Hematocrit (blood only) 36.1 % (37.0-47.0); Immature Granulocytes # (auto) 0.02 K/uL (0.01-0.20); Immature Granulocytes % (auto) 0.5 %; Lymphocytes # (auto) 1.14 K/uL (1.20-3.40); Lymphocytes % (auto) 31.3 %; Mean Corpuscular Hgb Conc 33.2 g/dL (32.0-36.0); Mean Corpuscular Volume 93.3 fL (80.0-100.0); Monocytes # (auto) 0.28 K/uL (0.11-0.59); Monocytes % (auto) 7.7 %; Neutrophils # (auto) 2.18 K/uL (1.40-6.50); Neutrophils % (auto) 59.9 %; Platelet Count 218 K/uL (130-400); RDW Coefficient of Variation 12.2 % (11.5-14.5); Red Blood Count 3.87 M/uL (4.20-5.40); White Blood Count 3.64 K/ul (4.8-10.8)
[2024-05-21] MEDS: hydrOXYzine HCl 10 MG TAB PO SCH (08:54)
[2024-05-21] MEDS: FLUDROCORTISONE ACETATE 0.1 MG TAB PO SCH (08:54)
[2024-05-21] MEDS: FAMOTIDINE 20 MG TAB PO SCH (08:54)
[2024-05-21] MEDS: ENOXAPARIN INJ 30 MG/0.3 ML SYR SQ SCH (08:55)
[2024-05-21] MEDS: LORATADINE 10 MG TAB PO SCH (08:55)
[2024-05-21] MEDS: OXcarbazepine 60MG/ML SUSP PO SCH (08:55)
[2024-05-21] MEDS: CEROVITE ADV FORMULA TAB PO SCH (08:55)
[2024-05-21] MEDS: OLANZAPINE 2.5 MG TAB PO SCH (08:55)
[2024-05-21] MEDS: ceFAZolin 2000MG 2,000 MG/15 ML SYR IV SCH (08:59)
[2024-05-21] MEDS ORDERED: DOXYCYCLINE HYCLATE 100 MG CAP PO SCH (09:00)
[2024-05-21 09:05] LABS: Albumin Level 3.5 gm/dl (3.4-5.0); Bilirubin,Total 0.3 mg/dl (0.2-1.0); Calcium 7.5 mg/dl (8.6-10.3)
[2024-05-21 09:24] LABS: Albumin Globulin Ratio 1.4 (0.9-2); BUN Creatinine Ratio 9.4 (10-20); Creatinine Clr Calc Pharmacy 127.2 ml/min; Globulin 2.5 gm/dl (2.5-4.0)
--- NOTE | 2024-05-21 10:23 | Infectious Disease Consult ---
Date of Service May 21, 2024 Telehealth Information I performed this visit using a real-time telehealth connection between my location and the patients location ([facility]). After connecting through interactive tele-video, patient was identified by name and date of and/or wristband check.Patient (or authorized healthcare patient admitting representative) was informed that this was a telemedicine visit and it was being conducted confidentially over secure lines. My office door was closed and no one else was present in the room with me.Patient (or authorized healthcare patient admitting representative) provided consent to proceed with the visit, expressed an understanding of privacy and security of the telemedicine visit, and gave permission to have a hospital patient admitting representative in the room in order to assist with the visit and to conduct portions of the visit, as needed. I informed the patient (or authorized healthcare patient admitting representative) that I reviewed their record and presented the opportunity for them to ask any questions regarding the visit today. The patient agreed to participate. Assessment & Plan (1) CLABSI (central line-associated bloodstream infection): Plan: Assessment: Bacterial sepsis Suspected CLABSI w/ MSSA TPN dependend for GI dysmotility Prior E faecalis CLABSI (06/2023) Recommendations: - I agree w/ cefazolin 2 gm iv q8 hours - F/u repeat blood cultures from (05/21) - Need echo to rule out infective endocarditis - Please, removal the mediport as line salvage is discouraged in view of MSSA in blood. - Will continue to follow I spent a total of 60 minutes coordinating, documenting, and providing care for this patient excluding time spent in the performance of separately billed services or time spent by another provider/QHP. (2) Bacterial sepsis: History of Present Illness History of Present Illness This is a 28 y/o female (Priyanka) w/ hx of recurrent CLABSI (bacterial and fungal) w/ the last one being E faecalis CLABSI (06/2023: removed Chao catheter at that w/ placement of another mediport), chronic abd pain, GERD, GI dysmotility on TPN (since 2020), POTS on fludrocortisone, and Jaqui-Danlos syndrome, who presented to [facility] ED on 05/20/24 for CVC-related infection (redness at the port site w/ pain x1 day) and was discharged of keflex. However, she returned today w/ fever and increasing redness and pain at the port site since. Fever was noted on presentation but w/o obvious WBC changes. However, blood culture showed MSSA (05/20/24). The patient is currently on cefazolin. She currently feels nauseous w/ vomiting: she vomited early this am. Feeling sick in general. She reports mild HARRISON but no neck/back pain or joint pain. No urinary symptoms. No coughing or sob. Allergies Allergy/AdvReac Type Severity Reaction Status Date / Time diphenhydramine Allergy Severe Urticaria, Verified 05/19/24 13:57 [From Benadryl] severe anxiety, jittery iron [From Venofer] Allergy Severe Abdominal Verified 05/19/24 13:57 Pain prochlorperazine Allergy Severe Anaphylaxis Verified 05/19/24 13:57 [From Compazine] adhesive Allergy Intermediate Redness, Verified 05/19/24 13:57 swelling gluten Allergy Intermediate Hives, GI Verified 05/19/24 13:57 upset peanut Allergy Intermediate Itchy Verified 05/19/24 13:57 throat tree nut Allergy Intermediate Itchy Verified 05/19/24 13:57 throat pollen extracts Allergy Mild Itchy Verified 05/19/24 13:57 eyes, sneezing, congestion chlorhexidine Allergy Unknown Unknown Verified 05/19/24 13:57 Latex, Natural Rubber AdvReac Intermediate Redness, Verified 05/19/24 13:57 itchy Home Medications Medication Instructions Recorded Confirmed Type famotidine 20 mg tablet 20 mg PO BID 04/09/21 05/21/24 History fludrocortisone 0.1 mg tablet 0.1 mg PO QAM 04/09/21 05/21/24 History loratadine 10 mg tablet 10 mg PO QAM 04/09/21 05/21/24 History montelukast 10 mg tablet 10 mg PO HS 04/09/21 05/21/24 History (Singulair) ondansetron HCl 8 mg tablet 8 mg PO Q8 PRN Nausea 04/09/21 05/21/24 History linaclotide 145 mcg capsule 145 mcg PO QAM PRN Constipation 01/02/22 05/21/24 History (Linzess) cholecalciferol (vitamin D3) 1,250 1,250 mcg PO WK 01/13/23 05/21/24 History mcg (50,000 unit) capsule granisetron HCl 1 mg tablet 1 mg PO Q12H 09/23/23 05/21/24 History hydroxyzine HCl 10 mg tablet 50 mg PO QID PRN Other 09/23/23 05/21/24 History olanzapine 2.5 mg tablet 2.5 mg PO DAILY 12/17/23 05/21/24 History baclofen 10 mg tablet 10 mg PO BID 05/21/24 05/21/24 History cephalexin 500 mg tablet 500 mg PO UD 05/21/24 05/21/24 History cyanocobalamin (vitamin B-12) 1,000 mcg IM MONTHLY 05/21/24 05/21/24 History 1,000 mcg/mL injection solution duloxetine 20 mg capsule,delayed 20 mg PO DAILY 05/21/24 05/21/24 History release Patient History Medical History Gastrointestinal dysmotility Reactive hypoglycemia dexcom present to left arm Anemia Neuropathy legs Gastroparesis History of COVID-19 02/2022, not hospitalized 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 Jejunostomy tube present placed October 2020 Surgical History History of myringotomy History of surgery (06/24/21) Removal of Right Tunneled Central Line in Internal Jugular Catheter H/O wisdom tooth extraction H/O wrist surgery right S/P knee surgery Left Family History Other Adopted Social History Smoking Status: Never smoker Second Hand Exposure: No; Do You Dip or Chew Tobacco: No; Hx Alcohol Use: Yes Alcohol type: hard liquor Hx Substance Use: No Preferred Language: Syriac Communication Ability: Effective Temporary Staff Accountant Required: No Beliefs That Will Affect Care: None Current Living Situation: Family Current Living Situation Comment: Lives w/ family at home Feels Safe at Home: Yes Assistive Devices: None Review of Systems as HPI and all others negative Physical Exam Gen: no acute distress Chest: redness noted at the L chest port site w/o obvious open wound or drainage, breathing comfortably on room air Neuro: A&Ox3 Results & Data Vital Signs (Past 12 Hours) Vital Signs Temp Pulse Pulse Resp BP BP Pulse Ox 05/21/24 08:52 36.8 C 120 H 18 107/74 98 05/21/24 05:30 96 H 18 110/76 96 05/21/24 05:00 16 110/75 100 05/21/24 02:21 37.0 C 05/21/24 01:08 118 H 05/21/24 00:21 122 H 18 96 05/21/24 00:10 38.1 C H 134 H 125/89 97 05/21/24 00:03 38.0 C H 126 H 18 124/83 98 O2 Del Method 05/21/24 08:52 Room Air 05/21/24 05:30 Room Air 05/21/24 05:00 Room Air 05/21/24 02:21 05/21/24 01:08 05/21/24 00:21 Room Air 05/21/24 00:10 Room Air 05/21/24 00:03 Room Air Laboratory Results Labs WBC 5.65K -> 3.64K H 12 Plt 218K Cr 0.53 LFT ast 62, alt 57 PCT 0.13 UA (05/21): neg nit, neg LE Blood cx (05/20): MSSA (2 of 4) Blood cx (05/21): NGTD CT chest (05/21): Unremarkable study No obvious abnormality seen adjacent to the port site. Complete resolution of prior right lower lobe patchy ground-glass opacity. US liver (05/21):Normal liver and gallbladder ultrasound. No focal hepatic lesions or gallstones were identified.
--- NOTE | 2024-05-21 10:41 | Surgery Consultation ---
Date of Consultation May 21, 2024 Assessment & Plan (1) Infection complicating venous access device: On exam pt in NAD, mediport on left side of chest, erythema noted surrounding, no drainage Blood cultures positive for MSSA ID saw pt and recommend removal Discussed with patient mediport removal today with on-call surgeon Dr. Garcia Patient has been NPO since yesterday Supervising Physician Co-Signing Physician Notes Patient seen and examined, labs and imaging reviewed, agree with above. Presented with cellulitis around port site, positive blood cultures. She uses the port for TPN. Currently afebrile stable vitals. Port with no significant cellulitis except for small area just over the access site. Plan for port removal Risks discussed to include but not limited to bleeding, infection, poor access, need for future more extensive surgery, port fracture failure to remove, and the risk of anesthesia Subcutaneous access ports are typically not recommended for TPN usage as they have a high rate infection. She has had Puente catheters placed by Dr. Dick in the past, we would recommend outpatient follow-up with Dr. Dick for the same History of Present Illness Reason for Consultation: Infected Mediport Requesting Physician: Dr Staples Attending Physician: Terrell Staples MD History of Present Illness Patient is a pleasant 28 yo female with PMH of Gastrointestinal dysmotility, POTS, Jaqui-Danios disease, on nursing home TPN, presented to the [facility] ER yesterday with c/o fever, chills, pain and redness over Mediport site with a fever. Blood cultures were taken and came back positive MSSA. General surgery consulted for removal. Patient states she had the port placed approximately one year ago on the left side of chest and recently went to [facility] to have it accessed and they were unsuccessful. Patient has had three puente catheters in the past on the right side of chest. Allergies Allergy/AdvReac Type Severity Reaction Status Date / Time diphenhydramine Allergy Severe Urticaria, Verified 05/21/24 12:35 [From Benadryl] severe anxiety, jittery iron [From Venofer] Allergy Severe Abdominal Verified 05/21/24 12:35 Pain prochlorperazine Allergy Severe Anaphylaxis Verified 05/21/24 12:35 [From Compazine] adhesive Allergy Intermediate Redness, Verified 05/21/24 12:35 swelling gluten Allergy Intermediate Hives, GI Verified 05/21/24 12:35 upset peanut Allergy Intermediate Itchy Verified 05/21/24 12:35 throat tree nut Allergy Intermediate Itchy Verified 05/21/24 12:35 throat pollen extracts Allergy Mild Itchy Verified 05/21/24 12:35 eyes, sneezing, congestion chlorhexidine Allergy Unknown Unknown Verified 05/21/24 12:35 Latex, Natural Rubber AdvReac Intermediate Redness, Verified 05/21/24 12:35 itchy Home Medications Medication Instructions Recorded Confirmed Type famotidine 20 mg tablet 20 mg PO BID 04/09/21 05/21/24 History fludrocortisone 0.1 mg tablet 0.1 mg PO QAM 04/09/21 05/21/24 History loratadine 10 mg tablet 10 mg PO QAM 04/09/21 05/21/24 History montelukast 10 mg tablet 10 mg PO HS 04/09/21 05/21/24 History (Singulair) ondansetron HCl 8 mg tablet 8 mg PO Q8 PRN Nausea 04/09/21 05/21/24 History linaclotide 145 mcg capsule 145 mcg PO QAM PRN Constipation 01/02/22 05/21/24 History (Linzess) cholecalciferol (vitamin D3) 1,250 1,250 mcg PO WK 01/13/23 05/21/24 History mcg (50,000 unit) capsule granisetron HCl 1 mg tablet 1 mg PO Q12H 09/23/23 05/21/24 History hydroxyzine HCl 10 mg tablet 50 mg PO QID PRN Other 09/23/23 05/21/24 History olanzapine 2.5 mg tablet 2.5 mg PO DAILY 12/17/23 05/21/24 History baclofen 10 mg tablet 10 mg PO BID 05/21/24 05/21/24 History cephalexin 500 mg tablet 500 mg PO UD 05/21/24 05/21/24 History cyanocobalamin (vitamin B-12) 1,000 mcg IM MONTHLY 05/21/24 05/21/24 History 1,000 mcg/mL injection solution duloxetine 20 mg capsule,delayed 20 mg PO DAILY 05/21/24 05/21/24 History release Patient History Medical History Gastrointestinal dysmotility Reactive hypoglycemia dexcom present to left arm Anemia Neuropathy legs Gastroparesis History of COVID-19 02/2022, not hospitalized 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 Jejunostomy tube present placed October 2020 Surgical History History of myringotomy History of surgery (06/24/21) Removal of Right Tunneled Central Line in Internal Jugular Catheter H/O wisdom tooth extraction H/O wrist surgery right S/P knee surgery Left Family History Other Adopted Social History Smoking Status: Never smoker Second Hand Exposure: No; Do You Dip or Chew Tobacco: No; Hx Alcohol Use: Yes Alcohol type: hard liquor Hx Substance Use: No Preferred Language: Swazi Communication Ability: Effective Certified Orthotist Practice Manager Required: No Beliefs That Will Affect Care: None Current Living Situation: Family Current Living Situation Comment: Lives w/ family at home Feels Safe at Home: Yes Assistive Devices: None Review of Systems Constitutional: no fever and no chills Respiratory: no dyspnea Cardiovascular: no chest pain Integumentary: + problem reported Physical Exam Constitutional: cooperative and comfortable Respiratory: normal respiratory effort; no respiratory distress Cardiovascular: Rate/Rhythm: + tachycardic Chest (Breasts): Chest: + vascular access device or port (redness noted around port site, no drainage noted) Results & Data Vital Signs (Past 12 Hours) Vital Signs Temp Pulse Pulse Resp BP BP Pulse Ox 05/21/24 08:52 98.3 F 120 H 18 107/74 98 05/21/24 05:30 96 H 18 110/76 96 05/21/24 05:00 16 110/75 100 05/21/24 02:21 98.6 F 05/21/24 01:08 118 H 05/21/24 00:21 122 H 18 96 05/21/24 00:10 100.6 F H 134 H 125/89 97 05/21/24 00:03 100.4 F H 126 H 18 124/83 98 O2 Del Method 05/21/24 08:52 Room Air 11/08/24 05:30 Room Air 05/21/24 05:00 Room Air 05/21/24 02:21 05/21/24 01:08 05/21/24 00:21 Room Air 05/21/24 00:10 Room Air 05/21/24 00:03 Room Air PG Care Time/CCT Total # of Minutes Spent Total Time Spent with Patient: Total time spent is greater than 50% in coordination of care (as documented) at patient's floor/unit and/or counseling patient: Coding Level of Care Code 94664 IN/OBS CONSULT LVL 2,35M Diagnoses Infection complicating venous access device T80.219A
--- NOTE | 2024-05-21 11:53 | Communication Note ---
Date of Service: May 21, 2024 Patient seen at bedside She reports that she is feeling slightly better compared to yesterday No recurrence of fever; reports nausea is slightly better Assessment/plan MSSA bacteremia CLABSI, POA Patient's presents with fever, erythema around her port site Blood culture growing gram-positive cocci in clusters; PCR positive for MSSA Infectious disease consulted; recommended to continue cefazolin 2g IV every 8 hours. General surgery consulted for removal of port. Echocardiogram to assess for infective endocarditis Patient reports that she has been able to do some enteral feeding; if patient is not able to eat enterally; will consider PPN Repeat blood culture after 2 days. Full progress note to follow tomorrow Please note the above document was generated using voice recognition software. It may contain grammatical, syntax or spelling errors. Any formal questions or concerns about the content, text or information contained within the body of this dictation should be directly addressed to the provider for clarification
[2024-05-21] MEDS: D5W AND LACTATED RINGERS 1,000 ML IV SCH (12:27)
[2024-05-21] MEDS ORDERED: MIDAZOLAM HCL 1 MG/ML 2ML VIAL ONE (12:47)
[2024-05-21] MEDS ORDERED: fentaNYL citrate PF 100 MCG/2 ML VIAL ONE (12:49)
[2024-05-21] MEDS ORDERED: LIDOCAINE 2% 2 ML VIAL/AMP(20MG/ML) INFIL ONE ×2 (12:50)
[2024-05-21] MEDS ORDERED: PROPOFOL IV EMULSION 10 MG/ML 20 ML VIAL IV ONE (12:50)
--- NOTE | 2024-05-21 12:56 | Anesthesiology Consultation ---
Date of Service May 21, 2024 Assessment & Plan Chart Review Chart Review: Acceptable Risk for Surgery Consults Requested none ASA ASA2 Proposed Anesthesia Anesthesia Type: MAC Risk / Benefits Reviewed With: PT / POA / Parent / Guardian, Accepts Plan and Informed Consent Obtained History Surgery Operation Date: 05/21/24 07:00 Proposed Procedures p Infusaport Removal - Alton Garcia, DO, FACS Height/Weight Height: 5 ft 3 in Weight: 50.1 kg Allergies Allergy/AdvReac Type Severity Reaction Status Date / Time diphenhydramine Allergy Severe Urticaria, Verified 05/21/24 12:35 [From Benadryl] severe anxiety, jittery iron [From Venofer] Allergy Severe Abdominal Verified 05/21/24 12:35 Pain prochlorperazine Allergy Severe Anaphylaxis Verified 05/21/24 12:35 [From Compazine] adhesive Allergy Intermediate Redness, Verified 05/21/24 12:35 swelling gluten Allergy Intermediate Hives, GI Verified 05/21/24 12:35 upset peanut Allergy Intermediate Itchy Verified 05/21/24 12:35 throat tree nut Allergy Intermediate Itchy Verified 05/21/24 12:35 throat pollen extracts Allergy Mild Itchy Verified 05/21/24 12:35 eyes, sneezing, congestion chlorhexidine Allergy Unknown Unknown Verified 05/21/24 12:35 Latex, Natural Rubber AdvReac Intermediate Redness, Verified 05/21/24 12:35 itchy Medications Home Medications Medication Instructions Recorded Confirmed Last Taken famotidine 20 mg tablet 20 mg PO BID 04/09/21 05/21/24 05/20/24 fludrocortisone 0.1 mg tablet 0.1 mg PO QAM 04/09/21 05/21/24 05/20/24 loratadine 10 mg tablet 10 mg PO QAM 04/09/21 05/21/24 05/20/24 montelukast 10 mg tablet 10 mg PO HS 04/09/21 05/21/24 05/20/24 (Singulair) ondansetron HCl 8 mg tablet 8 mg PO Q8 PRN Nausea 04/09/21 05/21/24 02/06/23 20:00 linaclotide 145 mcg capsule 145 mcg PO QAM PRN Constipation 01/02/22 05/21/24 02/05/23 (Linzess) cholecalciferol (vitamin D3) 1,250 1,250 mcg PO WK 01/13/23 05/21/24 06/29/23 mcg (50,000 unit) capsule granisetron HCl 1 mg tablet 1 mg PO Q12H 09/23/23 05/21/24 05/20/24 hydroxyzine HCl 10 mg tablet 50 mg PO QID PRN Other 09/23/23 05/21/24 Unknown olanzapine 2.5 mg tablet 2.5 mg PO DAILY 12/17/23 05/21/24 05/20/24 baclofen 10 mg tablet 10 mg PO BID 05/21/24 05/21/24 05/20/24 cephalexin 500 mg tablet 500 mg PO UD 05/21/24 05/21/24 Unknown cyanocobalamin (vitamin B-12) 1,000 mcg IM MONTHLY 05/21/24 05/21/24 Unknown 1,000 mcg/mL injection solution duloxetine 20 mg capsule,delayed 20 mg PO DAILY 05/21/24 05/21/24 05/20/24 release Active Medications Generic Name Dose Route Start Last Admin Trade Name Benny PRN Reason Stop Dose Admin Enoxaparin Sodium 30 mg 05/21/24 09:00 05/21/24 08:55 Enoxaparin Inj 30 Mg/0.3 Ml Syr SQ 06/20/24 08:59 Not Given QAM ZULY Famotidine 20 mg 05/21/24 09:00 05/21/24 08:54 Famotidine 20 Mg Tab PO 06/20/24 08:59 20 mg BID ZULY Administration Fludrocortisone Acetate 0.1 mg 05/21/24 09:00 05/21/24 08:54 Fludrocortisone Acetate 0.1 Mg Tab PO 06/20/24 08:59 0.1 mg QAM ZULY Administration Hydroxyzine HCl 10 mg 05/21/24 09:00 05/21/24 08:54 Hydroxyzine Hcl 10 Mg Tab PO 06/20/24 08:59 10 mg TID ZULY Administration Cefazolin Sodium 2,000 mg in 15 mls @ 3.75 mls/min 05/21/24 08:00 05/21/24 08:59 Ancef 2000mg IV 06/04/24 07:59 3.75 mls/min Q8H ZULY Administration Dextrose/Lactated Ringer's 1,000 mls @ 50 mls/hr 05/21/24 12:00 05/21/24 12:27 D5w And Lactated Ringers IV 05/22/24 11:59 50 mls/hr .Q20H ZULY Administration Loratadine 10 mg 05/21/24 09:00 05/21/24 08:55 Loratadine 10 Mg Tab PO 06/20/24 08:59 10 mg QAM ZULY Administration Multivitamins/Minerals 1 tab 05/21/24 09:00 05/21/24 08:55 Cerovite Adv Formula Tab PO 06/20/24 08:59 1 tab DAILY ZULY Administration Olanzapine 2.5 mg 05/21/24 09:00 05/21/24 08:55 Olanzapine 2.5 Mg Tab PO 06/20/24 08:59 2.5 mg DAILY ZULY Administration Oxcarbazepine 300 mg 05/21/24 09:00 05/21/24 08:55 Oxcarbazepine 60mg/Ml Susp PO 06/20/24 08:59 300 mg BID ZULY Administration NPO Date Last Intake of Fluids: 05/20/24 Time Last Intake of Fluids: 18:00 Date Last Intake of Solids: 05/20/24 Time Last Intake of Solids: 18:00 Past Medical History Medical History Gastrointestinal dysmotility Reactive hypoglycemia dexcom present to left arm Anemia Neuropathy legs Gastroparesis History of COVID-19 02/2022, not hospitalized 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 Jejunostomy tube present placed October 2020 Exercise / Class Metabolic Activity II 4-5 Yardwork/Stairs/Walk up hill Past Family History Family History Other Adopted Past Surgical History Surgical History History of myringotomy History of surgery (06/24/21) Removal of Right Tunneled Central Line in Internal Jugular Catheter H/O wisdom tooth extraction H/O wrist surgery right S/P knee surgery Left Past Anesthesia History No Hx of Anesthesia Complications History of PONV No Hx of PONV Social History Smoking Status: Never smoker Do You Dip or Chew Tobacco: No Hx Alcohol Use: Yes Alcohol type: hard liquor alcohol intake frequency: holidays/special occasions only Hx Substance Use: No substance use type: does not use Review of Systems ROS Unobtainable: All systems reviewed & are unremarkable except as noted in HPI & below Physical Exam Vital Signs Last Vital Signs Temp 36.8 C 05/21/24 12:35 Pulse 114 H 05/21/24 12:35 Resp 18 05/21/24 12:35 BP 107/70 05/21/24 12:35 Pulse Ox 98 05/21/24 12:35 O2 Del Method Room Air 05/21/24 12:35 Constitutional + cachectic ENMT Thyromental Distance: > or= 3.5 Finger Breadths Mallampati Class: I Respiratory normal respiratory effort Auscultation: lungs clear to auscultation bilaterally Cardiovascular Rate/Rhythm: regular rate and regular rhythm Psychiatric Orientation: alert and oriented x 3 Testing Laboratory Results 05/21/24 07:11 05/21/24 07:11 Urine Color Yellow 05/21/24 03:23 Urine Appearance Clear (Clear) 05/21/24 03:23 Urine pH 6.0 (4.5-7.5) 05/21/24 03:23 Ur Specific [place] 1.014 (1.000-1.030) 05/21/24 03:23 Urine Protein Negative (Negative) 05/21/24 03:23 Urine Glucose (UA) Negative (Negative) 05/21/24 03:23 Urine Ketones 3+ (Negative) H 05/21/24 03:23 Urine Nitrite Negative (Negative) 05/21/24 03:23 Ur Leukocyte Esterase Negative (Negative) 05/21/24 03:23
[2024-05-21] MEDS ORDERED: ePHEDrine sulfate 50 MG/ML AMP IV PRN (13:09)
[2024-05-21] MEDS ORDERED: HYDROmorphone INJ 1 MG/ML SYRINGE IV PRN (13:09)
[2024-05-21] MEDS ORDERED: ONDANSETRON INJ 2 MG/ML 2 ML VIAL IV PRN (13:09)
[2024-05-21] MEDS ORDERED: fentaNYL citrate PF 100 MCG/2 ML VIAL IV PRN (13:09)
[2024-05-21] MEDS ORDERED: ATROPINE SULFATE 0.1 MG/ML 10ML SYR IV PRN (13:09)
[2024-05-21] MEDS ORDERED: PHENYLEPHRINE 100MCG/ML 5ML SYR ONE (13:21)
[2024-05-21] MEDS ORDERED: SODIUM CHLORIDE 0.9% PF INJ 10 ML VIAL ONE ×2 (13:34)
[2024-05-21] MEDS ORDERED: PHENYLEPHRINE HCL 10 MG/ML VIAL ONE (13:34)
--- NOTE | 2024-05-21 13:40 | Electrocardiogram Report ---
Test Reason : Blood Pressure : */* mmHG Vent. Rate : 134 BPM Atrial Rate : 134 BPM P-R Int : 128 ms QRS Dur : 76 ms QT Int : 370 ms P-R-T Axes : * 72 -1 degrees QTcB Int : 552 ms Sinus tachycardia T wave abnormality, consider inferolateral ischemia T wave abnormality, consider anterolateral ischemia Abnormal ECG When compared with ECG of 20-May-2024 15:53, (unconfirmed) Non-specific change in ST segment in Anterior leads T wave inversion now evident in Inferior leads Nonspecific T wave abnormality now evident in Anterolateral leads Confirmed by Josh Mackey ([id number]) on 05/21/2024 1:39:33 PM Referred By: REFERRED SELF Confirmed By: Josh Mackey
[2024-05-21] MEDS: BUPIVACAINE 0.5 % 5 MG/1 ML MPF 30ML VIAL ONE (13:52)
[2024-05-21] MEDS: LIDOCAINE 1%/EPINEPHRINE 1:100,000 50 ML VIAL ONE (13:53)
--- NOTE | 2024-05-21 13:57 | Operative Report ---
PG Post Operative Report Pre & Post Diagnosis Operation Date: 05/21/24 07:00 Pre-Op Diagnosis: Infection complicating venous access device Post-Op Diagnosis: Infection complicating venous access device I identified the patient and participated in the time-out.: Yes Procedure Operation Date: 05/21/24 07:00 Actual Procedures p Infusaport Removal - Left side(Left) - Alton Garcia DO, FABRICIO Surgeon Alton Garcia DO, FABRICIO Rn Gyn Debora Wei Estimated Blood Loss 3 Findings Consistent with Post-Op Diagnosis Port removed intact, good hemostasis. Port sent to pathology, tip sent for culture Specimens Port Port tip for call Anesthesia Type MAC Complications none Disposition Accompanied Patient To Recovery: No Disposition: Recovery Room Indications 28-year-old female with left IJ access port presented with bacteremia and port site infection, plan for port removal. The risks of the procedure were discussed, all questions were answered, and the patient agreed to proceed with surgery as planned. Description of Procedure The patient was properly identified, consented, and taken to the operating room where she was placed in the supine position. Sedation with monitored anesthesia care was induced. SCDs and a safety belt were placed. Preoperative antibiotics were administered. The patient's left chest and neck was prepped and draped in the standard sterile fashion. Surgical timeout was performed and all parties were in agreement that this was the correct patient and procedure to be performed and we continued as planned. Local anesthetic was injected along the skin incision. A transverse incision was made overlying the port through the old incision and deepened down through the subcutaneous tissue with electrocautery. The capsule was opened exposing the port. There was some clear reactive fluid. The tethering sutures were cut, the port was removed and pressure held at the insertion site. The port appeared intact. 2 cm at the tip were sent for culture and the remainder of the port was sent to pathology as specimen. A portion of the capsule was removed. The wound was irrigated and hemostasis achieved. The skin was closed with interrupted 3-0 Vicryl deep dermal sutures, followed by 4-0 Monocryl running subcuticular suture. Dermabond was placed over the wound. The patient was extubated in the operating room and taken to the PACU where she recovered without apparent incident. All sponge, instrument and needle counts were correct at the conclusion of the procedure. The patient tolerated the procedure well. The physicians respiratory therapist assistant was present and scrubbed for the entire the case. She was critical in positioning the patient, prepping and draping, retraction and exposure, removal of the port, closure the incisions, and placement of the dressings. I attest to the content of the Intraoperative Record and any orders documented therein. Any exceptions are noted below.
[2024-05-21] MEDS ORDERED: CEFEPIME 2000MG 2,000 MG/20 ML SYR IV SCH (14:00)
--- NOTE | 2024-05-21 15:02 | Anesthesiology Progress Note ---
Date of Service May 21, 2024 Anesthesia Post Procedure Vital Signs Vital Signs: Temp Pulse Pulse Resp BP BP Pulse Ox 05/21/24 15:00 83 14 96/62 L 96 05/21/24 14:50 36.7 C 94 H 20 97/66 L 98 05/21/24 14:40 91 H 19 99/66 L 100 05/21/24 14:30 84 16 91/54 L 99 05/21/24 14:20 79 13 93/56 L 99 05/21/24 14:10 83 17 97/57 L 98 05/21/24 14:01 37.1 C 85 17 82/43 L 98 05/21/24 12:35 36.8 C 114 H 18 107/70 98 05/21/24 11:43 37.3 C 112 H 16 102/65 97 05/21/24 09:50 116 H 05/21/24 08:52 36.8 C 120 H 18 107/74 98 05/21/24 05:30 96 H 18 110/76 96 05/21/24 05:00 16 110/75 100 05/21/24 02:21 37.0 C 05/21/24 01:08 118 H 05/21/24 00:21 122 H 18 96 05/21/24 00:10 38.1 C H 134 H 125/89 97 05/21/24 00:03 38.0 C H 126 H 18 124/83 98 O2 Del Method O2 Flow Rate 05/21/24 15:00 Room Air 05/21/24 14:50 Room Air 05/21/24 14:40 Oxymask 4 05/21/24 14:30 Oxymask 4 05/21/24 14:20 Oxymask 4 05/21/24 14:10 Oxymask 8 05/21/24 14:01 Oxymask 8 05/21/24 12:35 Room Air 05/21/24 11:43 Room Air 05/21/24 09:50 05/21/24 08:52 Room Air 05/21/24 05:30 Room Air 05/21/24 05:00 Room Air 05/21/24 02:21 05/21/24 01:08 05/21/24 00:21 Room Air 05/21/24 00:10 Room Air 05/21/24 00:03 Room Air Pain Intensity Left Chest: Pain Intensity: 4 Abdomen: Pain Intensity: 7 Transfer of Care Handoff Completed per policy Notes Mental Status: alert / awake / arousable Patient Amnestic to Procedure: Yes Nausea / Vomiting: adequately controlled Pain: adequately controlled Airway Patency, RR, SpO2: stable & adequate BP & HR: stable & adequate Hydration State: stable & adequate Anesthetic Complications: no major complications apparent and Pt Satisfied with anesthetic care
[2024-05-21] MEDS: MONTELUKAST SODIUM 10 MG TABLET PO SCH (21:02)
[2024-05-21] MEDS: ACETAMINOPHEN 500 MG TAB PO PRN (22:10)
[2024-05-21] MEDS: LACTATED RINGER'S 1,000 ML IV ONE (22:36)
--- NOTE | 2024-05-22 05:19 | Surgery Progress Note ---
Date of Service May 22, 2024 Assessment & Plan (1) Infection complicating venous access device: Plan: Status post removal of infected a port on 05/21/2024 (postop day #1) Provide analgesics if needed Patient is currently on antibiotics in the form of Ancef. Culture of catheter tip has been sent and is pending. This should be followed and antibiotics be tailored accordingly Remainder of care as directed by primary team Admission and Anticipated Discharge Date Admission Date: May 21, 2024 Supervising Physician Co-Signing Physician Notes Patient not in room on morning rounds, labs reviewed, discussed with ABHILASH Abraham. POD #1 port removal for bacteremia. Will need access in the future after infection clears, likely needs a Chao given need for TPN. Would recommend follow-up with Dr. Dick as an outpatient as she has had several placed by him in the past. Surgery will sign off, call with questions or concerns Subjective Patient is currently resting comfortably in bed. She denies any pain at her surgical site. Physical Exam Physical Exam: Site of a port removal examined in the left subclavian area. Incision is clean, dry, intact. There is no drainage. There is minimal surrounding erythema. Results & Data Vital Signs (Past 12 Hours) Vital Signs Temp Pulse Pulse Resp BP Pulse Ox O2 Del Method 05/22/24 03:39 36.6 C 94 H 18 98/65 L 98 Room Air 05/21/24 23:58 126 H 05/21/24 22:03 38.4 C H 128 H 18 101/66 100 Room Air 05/21/24 19:33 36.8 C 115 H 18 95/66 L 98 Room Air 05/21/24 17:46 101 H PG Care Time/CCT Total # of Minutes Spent Total Time Spent with Patient: Total time spent is greater than 50% in coordination of care (as documented) at patient's floor/unit and/or counseling patient: Coding Level of Care Code 93299 Post Operative Follow-Up Diagnoses Infection complicating venous access device T80.219A
[2024-05-22 07:43] LABS: BUN Creatinine Ratio 3.7 (10-20); Calcium 8.4 mg/dl (8.6-10.3); Creatinine Clr Calc Pharmacy 126.9 ml/min; Magnesium 2.1 mg/dl (1.7-2.4); Phosphorus 2.3 mg/dl (2.5-4.9); Potassium 3.6 mmol/L (3.5-5.1)
--- NOTE | 2024-05-22 12:02 | Hospitalist Progress Note ---
Date of Service May 22, 2024 Assessment & Plan (1) Sepsis: Plan: MSSA bacteremia CLABSI, POA Patient's presents with fever, erythema around her port site Blood culture growing staph aureus; PCR positive for MSSA Catheter tip- staph aureus Infectious disease consulted; recommended to continue cefazolin 2g IV every 8 hours. Removal of InfusaPort removal on 05/21/2024 by general surgery Transthoracic echocardiogram does not show vegetation Continue on cefazolin every 8 hours. Plan to repeat blood culture tomorrow a.m. Patient will need possible Chao placed after confirmation that her blood cultures are negative Patient currently able to tolerate oral diet; consideration for PPN to be made if patient is not able to meet caloric requirements GI dysmotility Dependent on TPN Patient also has G-tube which she uses to drain after oral intake Patient currently able to tolerate oral diet If unable to tolerate oral diet; plan to place her on PPN History of iron deficiency anemia; Received IV iron infusions Hemoglobin currently stable History of POTS on fludrocortisone History of Jaqui- Danlos disease GERD on pepcid DVT prophylaxis Lovenox Full code Time spent evaluating patient, direct bedside care, chart review, placing orders, interpretation of diagnostic studies, discussion with consultants, patient, and family members, as well as other required patient management ac tivities is 50 minutes Please note the above document was generated using voice recognition software. It may contain grammatical, syntax or spelling errors. Any formal questions or concerns about the content, text or information contained within the body of this dictation should be directly addressed to the provider for clarification Admission and Anticipated Discharge Date Admission Date: May 21, 2024 Subjective Patient seen and examined at bedside. She reports she is feeling slightly better compared to yesterday She has been afebrile No significant events overnight Review of Systems Review of Systems: All systems reviewed & are unremarkable except as noted in Subjective Physical Exam Physical Exam: Constitutional: Alert oriented x 3; not in distress. Respiratory: normal respiratory effort, lungs clear to auscultation, no wheeze, rales, rhonchi. Normal insp/exp effort, no accessory muscle use Cardiovascular: RRR, no murmur, no edema Vessels: no JVD or carotid bruit Chest: Incision over the chest is clean dry and intact. Abdomen: normal bowel sounds, soft, nontender, no hepatosplenomegaly Musculoskeletal: no cyanosis or clubbing, extremities motor strength 5/5 Skin: no rashes, warm and dry normal turgor Neurologic: PERRL, EOMI, accommodation nl, no face palsy, no dysarthria CN's II- XI intact bilaterally and moves all extremities Psychiatric: A+Ox3, euthymic affect Results & Data Results & Data Vital Signs (Past 12 Hours) Vital Signs Temp Pulse Pulse Resp BP Pulse Ox O2 Del Method 05/22/24 11:46 36.8 C 96 H 16 96/63 L 97 Room Air 05/22/24 08:00 36.7 C 92 H 16 98/67 L 98 Room Air 05/22/24 07:22 91 H 05/22/24 03:39 36.6 C 94 H 18 98/65 L 98 Room Air 05/21/24 23:58 126 H (1) Sepsis Sepsis type: sepsis due to unspecified organism Sepsis acute organ dysfunction status: without acute organ dysfunction Qualified Code(s): A41.9 - Sepsis, unspecified organism
[2024-05-22] MEDS: SODIUM CHLORIDE 0.9% 1,000 ML IV ONE (19:50)
[2024-05-23 06:35] LABS: Basophils # (auto) 0.03 K/uL (0.00-0.20); Basophils % (auto) 0.5 %; Eosinophils # (auto) 0.12 K/uL (0.00-0.50); Eosinophils % (auto) 2.1 %; Hematocrit (blood only) 35.8 % (37.0-47.0); Hemoglobin 12.1 g/dl (12.0-16.0); Immature Granulocytes # (auto) 0.02 K/uL (0.01-0.20); Immature Granulocytes % (auto) 0.4 %; Lymphocytes # (auto) 2.12 K/uL (1.20-3.40); Lymphocytes % (auto) 37.5 %; Mean Corpuscular Hemoglobin 30.7 pg (25.0-34.0); Mean Corpuscular Hgb Conc 33.8 g/dL (32.0-36.0); Mean Corpuscular Volume 90.9 fL (80.0-100.0); Mean Platelet Volume 9.1 fL (9.4-12.4); Monocytes # (auto) 0.49 K/uL (0.11-0.59); Monocytes % (auto) 8.7 %; Neutrophils # (auto) 2.88 K/uL (1.40-6.50); Neutrophils % (auto) 50.8 %; Platelet Count 292 K/uL (130-400); RDW Coefficient of Variation 12.1 % (11.5-14.5); RDW Standard Deviation 40.7 fL (36.4-46.3); Red Blood Count 3.94 M/uL (4.20-5.40); White Blood Count 5.66 K/ul (4.8-10.8)
[2024-05-23 07:06] LABS: BUN Creatinine Ratio 14.5 (10-20); Calcium 8.5 mg/dl (8.6-10.3); Creatinine Clr Calc Pharmacy 120.9 ml/min; Potassium 3.4 mmol/L (3.5-5.1)
[2024-05-23] MEDS ORDERED: POTASSIUM CHLORIDE / WTR 10 MEQ/100 ML PLCT IV SCH (07:45)
[2024-05-23] MEDS: POTASSIUM CHLORIDE CRTAB 20 MEQ TABCR PO ONE (09:32)
[2024-05-23] MEDS: THIAMINE HCL 200 MG in SODIUM CHLORIDE 0.9% 50 ML IV SCH (09:32)
--- NOTE | 2024-05-23 12:56 | Hospitalist Progress Note ---
Date of Service May 23, 2024 Assessment & Plan (1) Sepsis: Plan: MSSA bacteremia CLABSI, POA Patient's presents with fever, erythema around her port site 2 out of 4 blood culture from 05/20 growing MSSA Catheter tip also growing MSSA Infectious disease consulted; recommended to continue cefazolin 2g IV every 8 hours. Removal of InfusaPort removal on 05/21/2024 by general surgery Transthoracic echocardiogram does not show vegetation Continue on cefazolin every 8 hours. Repeat Blood cx ordered on 05/23 Patient will need possible Chao placed after confirmation that her blood cultures are negative Patient currently able to tolerate oral diet; consideration for PPN to be made if patient is not able to meet caloric requirements GI dysmotility Dependent on TPN Patient also has G-tube which she uses to drain after oral intake Patient currently able to tolerate oral diet If unable to tolerate oral diet; plan to place her on PPN History of iron deficiency anemia; Received IV iron infusions Hemoglobin currently stable History of POTS on fludrocortisone History of Jaqui- Danlos disease GERD on pepcid DVT prophylaxis Lovenox Full code Time spent evaluating patient, direct bedside care, chart review, placing orders, interpretation of diagnostic studies, discussion with consultants, patient, and family members, as well as other required patient management activities is 50 minutes Please note the above document was generated using voice recognition software. It may contain grammatical, syntax or spelling errors. Any formal questions or concerns about the content, text or information contained within the body of this dictation should be directly addressed to the provider for clarification Admission and Anticipated Discharge Date Admission Date: May 21, 2024 Subjective Patient sleeping most of the morning and afternoon Is comfortable; denies any fever or chills overnight No significant events Review of Systems Review of Systems: All systems reviewed & are unremarkable except as noted in Subjective Physical Exam Physical Exam: Constitutional: Alert oriented x 3; not in distress. Respiratory: normal respiratory effort, lungs clear to auscultation, no wheeze, rales, rhonchi. Normal insp/exp effort, no accessory muscle use Cardiovascular: RRR, no murmur, no edema Vessels: no JVD or carotid bruit Chest: Incision over the chest is clean dry and intact. Abdomen: normal bowel sounds, soft, nontender, no hepatosplenomegaly Musculoskeletal: no cyanosis or clubbing, extremities motor strength 5/5 Skin: no rashes, warm and dry normal turgor Neurologic: PERRL, EOMI, accommodation nl, no face palsy, no dysarthria CN's II- XI intact bilaterally and moves all extremities Psychiatric: A+Ox3, euthymic affect Results & Data Results & Data Vital Signs (Past 12 Hours) Vital Signs Temp Pulse Pulse Resp BP Pulse Ox O2 Del Method 05/23/24 11:50 37.0 C 88 16 92/58 L 97 Room Air 05/23/24 08:00 36.8 C 86 16 98/66 L 98 Room Air 05/23/24 07:09 92 H 05/23/24 02:33 36.7 C 102 H 16 102/75 97 Room Air (1) Sepsis Sepsis type: sepsis due to unspecified organism Sepsis acute organ dysfunction status: without acute organ dysfunction Qualified Code(s): A41.9 - Sepsis, unspecified organism
[2024-05-24 07:02] LABS: Creatinine Clr Calc Pharmacy 123.1 ml/min; Potassium 3.6 mmol/L (3.5-5.1)
[2024-05-24] MEDS ORDERED: DEXTROSE 10% 1,000 ML IV PRN (08:52)
[2024-05-24] MEDS ORDERED: TPN/PPN CONSULT PHARMACY STA (08:52)
[2024-05-24] MEDS ORDERED: TPN/PPN CONSULT PHARMACY PRN (09:05)
[2024-05-24 10:07] LABS: Magnesium 1.8 mg/dl (1.7-2.4); Phosphorus 3.6 mg/dl (2.5-4.9)
--- NOTE | 2024-05-24 13:16 | Pharmacy Report ---
Pharmacy Initial PN Consult Nt - Date of Service May 24, 2024 - Scope Pharmacy has been consulted on this date to manage parenteral nutrition orders and order appropriate labs. As part of the Nutrition Support Team Guidelines, pharmacy will work in conjunction with dietary when determining the patients caloric needs. - Subjective * The patient is a 28 year old Female admitted on 05/21/24 for SEPSIS. * Patient is to receive parenteral nutrition for GI dysmotility--on chronic TPN as outpatient. Mediport was removed on 05/21 due sepsis- MSSA + blood and cath tip cultures. Repeat blood cultures are negative to date. Patient is not able to tolerate diet well, so PPN will be started this evening for nutrition. * Pertinent PMHx: POTS, Jaqui- Danlos disease - Objective Vascular Access: * Patient currently has a peripheral line. * Peripheral line was confirmed by IV Team to be acceptable for PPN use on this date. Height & Weight (Last Documented) Height 5 ft 3 in Weight 49.4 kg Diet Order(s) 05/21/24 Lunch Diet Intake & Ouput (24hrs) 05/23/24 05/24/24 05/25/24 06:59 06:59 06:59 Intake Total 800 / 800 1672 / 1672 52 / 52 Balance 800 / 800 1672 / 1672 52 / 52 Selected Laboratory Results 05/24/24 05:56 Sodium 141 Potassium 3.6 Chloride 107 Carbon Dioxide 25 Anion Gap 9 BUN 7 Creatinine 0.54 L BUN/Creatinine Ratio 13.0 Glucose 82 Calcium 9.0 [address] - Follow Up Nutrition Assessment Start: 05/24/24 09:59 Freq: Status: Active Protocol: Document 05/24/24 09:59 WN (Rec: 05/24/24 10:08 WN [id number]) RD - Initial Nutrition Assessment Start: 05/21/24 10:36 Freq: Status: Active Protocol: Document 05/21/24 10:37 WN (Rec: 05/21/24 11:04 WN [id number]) - Assessment & Plan Assessment: * Appreciate dietitians recommendations for macronutrients. Plan: * For Day #1 of PPN administration, the following will be ordered: * Macronutrients: * Amino Acids: 85 grams/day * Dextrose: 100 grams/day * Micronutrients: * Sodium chloride: 40 mEq/day * Sodium acetate: 40 mEq/day * Potassium chloride: 65 mEq/day * Magnesium sulfate: 8.12 mEq/day * Calcium gluconate: 9.5 mEq/day * Multivitamins: 10 mL/day * Trace elements: 1 mL/day * Thiamine: 200 mg/day * Folic Acid: 2 mg/day * Total volume of 2104 mL will be infused over 24 hours and will provide 680 kcal/day * Patient is on PPN which has a maximum mOsm/L of 900. Final osmolarity of current solution is 792.8 mOsm/L. * Labs will be ordered per PN protocol. * Pharmacy will follow and adjust PN orders on a daily basis. Thank you!
--- NOTE | 2024-05-24 14:09 | Infectious Disease Progress Nt ---
Date of Service May 24, 2024 Telehealth Information non-billable note as note written after chart review alone Assessment & Plan (1) CLABSI (central line-associated bloodstream infection): Plan: Infusa port was removed on 05/21 w/ repeat blood cultures from 05/21 and 05/23/24. TTE from 05/21 showed no obvious vegetations. I recommend the following: - Continue cefazolin 2 gm iv q8 hours to complete total 14 days from negative blood cultures: 05/21-06/03/24. - Check weekly CBC w/ diff and CMP while on abx therapy - May place a new port once the repeat blood cultures remains negative for 48-72 hours: blood cx from 05/21 remains negative so far. - No outpatient f/u w/ ID needed. ID signing off. (2) MSSA bacteremia: Results & Data Vital Signs (Past 12 Hours) Vital Signs Temp Pulse Resp BP Pulse Ox O2 Del Method 05/24/24 12:04 36.5 C 88 20 90/60 L 96 Room Air 05/24/24 07:39 36.2 C L 83 18 90/72 L 97 Room Air
--- NOTE | 2024-05-24 14:24 | Hospitalist Progress Note ---
Date of Service May 24, 2024 Assessment & Plan (1) Sepsis: Plan: MSSA bacteremia CLABSI, POA Patient's presents with fever, erythema around her port site 2 out of 4 blood culture from 05/20 growing MSSA Catheter tip also growing MSSA Infectious disease consulted; recommended to continue cefazolin 2g IV every 8 hours. Removal of InfusaPort removal on 05/21/2024 by general surgery Transthoracic echocardiogram does not show vegetation Discussed with infectious disease; plan to continue cefazolin 2 g IV every 8 hour to complete 14 days of from negative blood culture which is on 06/03/2024. Vascular surgery consulted for possible placement of new port. As per ID repeat blood culture needs to be negative for 48 to 72 hours. Blood culture from 05/23/2024 is negative so far. PPN ordered as patient oral intake is infrequent. GI dysmotility Dependent on TPN Patient also has G-tube which she uses to drain after oral intake PPN started; patient oral intake not adequate to meet caloric requirements. History of iron deficiency anemia; Received IV iron infusions Hemoglobin currently stable History of POTS on fludrocortisone History of Jaqui- Danlos disease GERD on pepcid DVT prophylaxis Lovenox Full code Time spent evaluating patient, direct bedside care, chart review, placing orders, interpretation of diagnostic studies, discussion with consultants, patient, and family members, as well as other required patient management activities is 50 minutes Please note the above document was generated using voice recognition software. It may contain grammatical, syntax or spelling errors. Any formal questions or concerns about the content, text or information contained within the body of this dictation should be directly addressed to the provider for clarification Admission and Anticipated Discharge Date Admission Date: May 21, 2024 Subjective Patient seen and examined at bedside. Comfortable; not in distress. Denies fever, chills, chest pain, shortness of breath, abdominal pain or urinary symptoms. No significant overnight events Review of Systems Review of Systems: All systems reviewed & are unremarkable except as noted in Subjective Physical Exam Physical Exam: Constitutional: Alert oriented x 3; not in distress. Respiratory: normal respiratory effort, lungs clear to auscultation, no wheeze, rales, rhonchi. Normal insp/exp effort, no accessory muscle use Cardiovascular: RRR, no murmur, no edema Vessels: no JVD or carotid bruit Chest: Incision over the chest is clean dry and intact. Abdomen: normal bowel sounds, soft, nontender, no hepatosplenomegaly Musculoskeletal: no cyanosis or clubbing, extremities motor strength 5/5 Skin: no rashes, warm and dry normal turgor Neurologic: PERRL, EOMI, accommodation nl, no face palsy, no dysarthria CN's II- XI intact bilaterally and moves all extremities Psychiatric: A+Ox3, euthymic affect Results & Data Results & Data Vital Signs (Past 12 Hours) Vital Signs Temp Pulse Resp BP Pulse Ox O2 Del Method 05/24/24 12:04 36.5 C 88 20 90/60 L 96 Room Air 05/24/24 07:39 36.2 C L 83 18 90/72 L 97 Room Air (1) Sepsis Sepsis acute organ dysfunction status: without acute organ dysfunction Sepsis type: sepsis due to unspecified organism Qualified Code(s): A41.9 - Sepsis, unspecified organism
[2024-05-24] MEDS ORDERED: METOCLOPRAMIDE HCL INJ 5 MG/ML 2 ML VIAL IV PRN (15:29)
[2024-05-24] MEDS: ONDANSETRON INJ 2 MG/ML 2 ML VIAL IV PRN (16:38)
[2024-05-24] MEDS: PERIPHERAL TPN IV SCH (16:42)
[2024-05-24] MEDS: [UNRECOGNIZED DRUG - OTHER] IV SCH (16:42)
[2024-05-25 07:08] LABS: BUN Creatinine Ratio 25.9 (10-20); Calcium 9.4 mg/dl (8.6-10.3); Creatinine Clr Calc Pharmacy 108.8 ml/min; Phosphorus 3.4 mg/dl (2.5-4.9); Potassium 3.7 mmol/L (3.5-5.1)
--- NOTE | 2024-05-25 08:30 | Hospitalist Progress Note ---
Date of Service May 25, 2024 Assessment & Plan (1) Sepsis: Plan Priyanka Mccarthy is a 28y/o F with PMHx significant for hypermobile Jaqui Danlos syndrome, POTS on fludrocortisone, severe protein calorie malnutrition/GI dysmotility on chronic TPN therapy [since 2020], history of recurrently CLABSI, history of gastrostomy tube placement, bile reflux gastritis, chronic pain syndrome/chronic abdominal pain, De Quervain's disease, iron deficiency anemia, history of Helicobacter infection and right ovarian cyst who presented to the ED on 05/21/2024 with complaints of increasing erythema and pain around her Infusaport site with associated fever. Patient was previously seen and evaluated in the ED on 05/20/2024 due to pain around her Infusaport site with some overlying erythema. She was discharged home at that time on a course of oral Keflex however her symptoms did not improve and she developed a fever as per above. 2 out of 4 blood cultures from 05/20/2024 grew MSSA. Last confinement was in June of 2023 for Enterococcal septicemia secondary to CLABSI. CLABSI [POA], MSSA Bacteremia: 2 out of 4 blood cultures from 05/20/2024 grew MSSA. Infusaport was removed by general surgery on 05/21/2024. Infusaport catheter tip also grew MSSA. ID consulted --> Continue IV cefazolin 2g Q8H. NAYLA without evidence of vegetation/infective endocarditis on 05/21/2024. Repeat blood cultures from 05/23/24 with NGTD. Per ID --> Plan to continue IV cefazolin Q8H to complete a total of 14 days from NEGATIVE blood cultures: 05/23/24-06/05/2024. Will need weekly CBC with differential and CMP while on antibiotic therapy. No outpatient follow-up with ID required however she will need close PCP follow-up. Probiotic added on. May place a new port once the repeat blood cultures remain negative for 48 to 72 hours as per ID --> Vascular surgery consulted for new port placement. Severe Protein Calore Malnutrition GI Dysmotility - Dependent on TPN: Patient also has a G-tube in place which she uses to drain after oral intake. PPN started on 05/24/2024 as the patient's oral intake was not adequate enough to meet caloric requirements. Other Chronic Medical Conditions: POTS/GERD/chronic pain syndrome/seasonal allergies/etc. --> Can continue/resume home meds as able. DVT Prophylaxis: SQ Lovenox Code Status: FULL CODE PCP: Meek Lopez MD Disposition: Admitted in Med/Tele - Dr. Dick will not be able to place a Chao catheter until Friday (05/28) at the earliest. Patient seen in collaboration with Dr. Staples. Please see addendum. I spent a total of 50 minutes coordinating, documenting, and providing care for this patient excluding time spent in the performance of separately billed services. This included personally reviewing all current laboratories and imaging studies, medical reconciliation, outpatient chart review and discussion with specialists. This chart was completed in part utilizing Speech Voice Recognition Software. Grammatical errors, random word insertions, pronoun errors, and incomplete sentences are an occasional consequence of this system due to software limitations, ambient noise, and hardware issues. Any formal questions or concerns about the content, text, or information contained within the body of this dictation should be directly addressed to the provider for clarification. Admission and Anticipated Discharge Date Admission Date: May 21, 2024 Supervising Physician Co-Signing Physician Notes Patient seen and examined at bedside. She reports that she is feeling much better. Denies fever, chills. Nausea is well-controlled with medication Discussed with Dr. Dick from vascular surgery over the phone; the earliest he can place a Chao will be on Friday; Continue PPN, IV antibiotics I have reviewed the advanced practitioner's documentation, and I agree with, and take responsibility for the plan of care I spent a total of 30 minutes coordinating, documenting, and providing care for this patient excluding time spent in the performance of separately billed services. All of the aforementioned completed while collaborating with the assigned advanced practitioner for a full treatment plan Subjective Patient seen and examined at bedside. Comfortable, no acute distress. Reports that she has persistent ongoing nausea but it is somewhat improved from yesterday. No acute events overnight. Discussed with her regarding new port placement - she is waiting to meet with vascular surgery regarding this. Review of Systems Review of Systems: At least ten systems reviewed and negative, except as noted in the subjective section. Physical Exam Physical Exam: General: Thin, NAD, laying down in bed, very pleasant, conversing appropriately. A+Ox3, euthymic affect. HEENT: Normocephalic, atraumatic. Conjunctivae normal, anicteric sclerae. External ear and nose normal, oropharynx normal. Respiratory: Normal respiratory effort, lungs clear to auscultation, no wheeze, rales, rhonchi. No accessory muscle use. Cardiovascular: Regular rate, rhythm, no murmur, normal peripheral pulses, no BLE edema. Vessels: No JVD. Abdomen/GI: Normal bowel sounds, soft, nontender, no hepatosplenomegaly. Extremities/Musculoskeletal: No cyanosis or clubbing, extremities motor strength intact, moves all extremities. Neurologic: No focal deficits, CN's II-XI not formally tested but appear grossly intact bilaterally. Skin: Port removal site on L upper chest wall without erythema/drainage, healing well. Keloids noted on the R upper chest wall from previous incisions. Results & Data Results & Data Vital Signs (Past 12 Hours) Vital Signs Temp Pulse Resp BP Pulse Ox O2 Del Method 05/25/24 07:17 36.5 C 70 16 95/62 L 98 Room Air Laboratory Results [facility] 05/24/24 05/25/24 05:56 06:13 Sodium 141 137 Potassium 3.6 3.7 Chloride 107 107 Carbon Dioxide 25 24 BUN 7 15 Creatinine 0.54 L 0.58 L Glucose 82 92 Calcium 9.0 9.4 (1) Sepsis Sepsis acute organ dysfunction status: without acute organ dysfunction Sepsis type: sepsis due to unspecified organism Qualified Code(s): A41.9 - Sepsis, unspecified organism
[2024-05-25] MEDS: ADVANCED PROBIOTIC 625 MG CAPSULE PO SCH (10:44)
--- NOTE | 2024-05-25 15:20 | Consultation ---
Date of Consultation May 25, 2024 Assessment & Plan (1) Severe malnutrition: Pt now s/p removal of infusaport, new cultures negative x2. Planning on puente catheter insertion on FRIDAY. Procedure, risks, benefits, and alternatives discussed with pt by myself at Dr Dick's request. Pt expresses understanding and agreement to proceed. History of Present Illness Reason for Consultation: infected infusaport, need access Attending Physician: Terrell Staples MD History of Present Illness 28 yo f with danielito-danlos, POTS, severe malnutrition requiring TPN, anemia, gastrointestinal dysmotility, admitted with sepsis likely related to infected infusaport, seen in consultation today for placement of IV access. Pt underwent removal of infected infusaport last week, now requires new access for TPN administration. Pt hoping to have puente catheter inserted instead of port. States feeling tired, but ok today. family present in room. Pt denies HARRISON, fever, chest pain, SOB, abd pain, N/V, rest pain, claudication, other complaitns. Allergies Allergy/AdvReac Type Severity Reaction Status Date / Time diphenhydramine Allergy Severe Urticaria, Verified 05/21/24 12:35 [From Benadryl] severe anxiety, jittery iron [From Venofer] Allergy Severe Abdominal Verified 05/21/24 12:35 Pain prochlorperazine Allergy Severe Anaphylaxis Verified 05/21/24 12:35 [From Compazine] adhesive Allergy Intermediate Redness, Verified 05/21/24 12:35 swelling gluten Allergy Intermediate Hives, GI Verified 05/21/24 12:35 upset peanut Allergy Intermediate Itchy Verified 05/21/24 12:35 throat tree nut Allergy Intermediate Itchy Verified 05/21/24 12:35 throat pollen extracts Allergy Mild Itchy Verified 05/21/24 12:35 eyes, sneezing, congestion chlorhexidine Allergy Unknown Unknown Verified 05/21/24 12:35 Latex, Natural Rubber AdvReac Intermediate Redness, Verified 05/21/24 12:35 itchy Home Medications Medication Instructions Recorded Confirmed Type famotidine 20 mg tablet 20 mg PO BID 04/09/21 05/21/24 History fludrocortisone 0.1 mg tablet 0.1 mg PO QAM 04/09/21 05/21/24 History loratadine 10 mg tablet 10 mg PO QAM 04/09/21 05/21/24 History montelukast 10 mg tablet 10 mg PO HS 04/09/21 05/21/24 History (Singulair) ondansetron HCl 8 mg tablet 8 mg PO Q8 PRN Nausea 04/09/21 05/21/24 History linaclotide 145 mcg capsule 145 mcg PO QAM PRN Constipation 01/02/22 05/21/24 History (Linzess) cholecalciferol (vitamin D3) 1,250 1,250 mcg PO WK 01/13/23 05/21/24 History mcg (50,000 unit) capsule granisetron HCl 1 mg tablet 1 mg PO Q12H 09/23/23 05/21/24 History hydroxyzine HCl 10 mg tablet 50 mg PO QID PRN Other 09/23/23 05/21/24 History olanzapine 2.5 mg tablet 2.5 mg PO DAILY 12/17/23 05/21/24 History baclofen 10 mg tablet 10 mg PO BID 05/21/24 05/21/24 History cephalexin 500 mg tablet 500 mg PO UD 05/21/24 05/21/24 History cyanocobalamin (vitamin B-12) 1,000 mcg IM MONTHLY 05/21/24 05/21/24 History 1,000 mcg/mL injection solution duloxetine 20 mg capsule,delayed 20 mg PO DAILY 05/21/24 05/21/24 History release Patient History Medical History Gastrointestinal dysmotility Reactive hypoglycemia dexcom present to left arm Anemia Neuropathy legs Gastroparesis History of COVID-19 02/2022, not hospitalized 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 Jejunostomy tube present placed October 2020 Surgical History History of removal of Port-a-Cath (05/21/24) Infusaport Removal - Left side(Left) - Alton Garcia, , FACS History of myringotomy History of surgery (06/24/21) Removal of Right Tunneled Central Line in Internal Jugular Catheter H/O wisdom tooth extraction H/O wrist surgery right S/P knee surgery Left Family History Other Adopted Social History Smoking Status: Never smoker Second Hand Exposure: No; Do You Dip or Chew Tobacco: No; Hx Alcohol Use: No Hx Substance Use: No Preferred Language: Belarusian Communication Ability: Effective Analytical Clerk Required: No Beliefs That Will Affect Care: None Current Living Situation: Family Current Living Situation Comment: Lives w/ family at home Feels Safe at Home: Yes Assistive Devices: Other Review of Systems Review of Systems: All systems reviewed & are unremarkable except as noted in HPI & below Physical Exam Constitutional: WD/WN, vitals as above + thin, cooperative and comfortable; not in distress Neck: trachea midline chest wall incision C/D/I Respiratory: normal respiratory effort, lungs clear to auscultation Auscultation: + diminished lung sounds Cardiovascular: Rate/Rhythm: regular rate and regular rhythm Vessels: normal peripheral pulses, posterior tibial pulses present, dorsalis pedis pulses present and radial pulses present Extremities: normal capillary refill; no edema Gastrointestinal (Abdomen): Inspection/Auscultation: abdomen normal to inspection and normal bowel sounds Percussion/Palpation: abdomen soft; abdomen nontender G tube noted Musculoskeletal: no cyanosis or clubbing, extremities motor strength 5/5 Skin: no rashes, warm and dry Neurologic: moves all extremities and awake; no focal motor deficits and not confused Psychiatric: A+Ox3, euthymic affect Results & Data Vital Signs (Past 12 Hours) Vital Signs Temp Pulse Resp BP Pulse Ox O2 Del Method 05/25/24 14:41 36.5 C 96 H 16 93/63 L 97 Room Air 05/25/24 07:17 36.5 C 70 16 95/62 L 98 Room Air
[2024-05-25] MEDS: [UNRECOGNIZED DRUG - OTHER] IV SCH (16:54)
[2024-05-25] MEDS: PERIPHERAL TPN IV SCH (16:54)
[2024-05-25] MEDS: CLINOLIPID 20% IV FAT EMULSION 250 ML IV SCH (17:07)
[2024-05-25] MEDS: STOP CLINOLIPID SCH (23:07)
[2024-05-26 06:28] LABS: Hematocrit (blood only) 37.4 % (37.0-47.0); Hemoglobin 12.5 g/dl (12.0-16.0); Mean Corpuscular Hemoglobin 30.3 pg (25.0-34.0); Mean Corpuscular Hgb Conc 33.4 g/dL (32.0-36.0); Mean Corpuscular Volume 90.6 fL (80.0-100.0); Mean Platelet Volume 8.6 fL (9.4-12.4); Platelet Count 456 K/uL (130-400); RDW Coefficient of Variation 12.1 % (11.5-14.5); RDW Standard Deviation 40.2 fL (36.4-46.3); Red Blood Count 4.13 M/uL (4.20-5.40); White Blood Count 8.91 K/ul (4.8-10.8)
[2024-05-26 06:41] LABS: BUN Creatinine Ratio 32.7 (10-20); Calcium 9.4 mg/dl (8.6-10.3); Creatinine Clr Calc Pharmacy 121.6 ml/min; Magnesium 1.9 mg/dl (1.7-2.4); Phosphorus 3.6 mg/dl (2.5-4.9); Potassium 3.9 mmol/L (3.5-5.1)
--- NOTE | 2024-05-26 08:29 | Hospitalist Progress Note ---
Date of Service May 26, 2024 Assessment & Plan (1) Sepsis: (2) MSSA bacteremia: (3) CLABSI (central line-associated bloodstream infection): Plan Priyanka Mccarthy is a 28y/o F with PMHx significant for hypermobile Jaqui Danlos syndrome, POTS on fludrocortisone, severe protein calorie malnutrition/GI dysmotility on chronic TPN therapy [since 2020], history of recurrently CLABSI, history of gastrostomy tube placement, bile reflux gastritis, chronic pain syndrome/chronic abdominal pain, De Quervain's disease, iron deficiency anemia, history of Helicobacter infection and right ovarian cyst who presented to the ED on 05/21/2024 with complaints of increasing erythema and pain around her Infusaport site with associated fever. Patient was previously seen and evaluated in the ED on 05/20/2024 due to pain around her Infusaport site with some overlying erythema. She was discharged home at that time on a course of oral Keflex however her symptoms did not improve and she developed a fever as per above. 2 out of 4 blood cultures from 05/20/2024 grew MSSA. Last confinement was in June of 2023 for Enterococcal septicemia secondary to CLABSI. Sepsis - RESOLVED CLABSI [POA], MSSA Bacteremia: 2 out of 4 blood cultures from 05/20/2024 grew MSSA. Infusaport was removed by general surgery on 05/21/2024. Infusaport catheter tip also grew MSSA. ID consulted --> Continue IV cefazolin 2g Q8H. NAYLA without evidence of vegetation/infective endocarditis on 05/21/2024. Repeat blood cultures from 05/23/24 with NGTD. Per ID --> Plan to continue IV cefazolin Q8H to complete a total of 14 days from NEGATIVE blood cultures: 05/23/24-06/05/2024. Will need weekly CBC with differential and CMP while on antibiotic therapy. No outpatient follow-up with ID required however she will need close PCP follow-up. Probiotic added on. May place a new port once the repeat blood cultures remain negative for 48 to 72 hours as per ID --> Chao catheter insertion on Friday (05/28) with vascular surgery. Severe Protein Calore Malnutrition GI Dysmotility - Dependent on TPN: Patient also has a G-tube in place which she uses to drain after oral intake. Nutrition onboard. PPN started on 05/24/2024 as the patient's oral intake was not adequate enough to meet caloric requirements. Other Chronic Medical Conditions: POTS/GERD/chronic pain syndrome/seasonal allergies/etc. --> Can continue/resume home meds as able. DVT Prophylaxis: SQ Lovenox Code Status: FULL CODE PCP: Meek Lopez MD Disposition: Admitted in Med/Tele - Anticipate Chao catheter insertion on Friday (05/28) with vascular surgery. Prescriptions for both IV cefazolin and TPN were delivered to case management. Patient seen in collaboration with Dr. Nelson. Please see addendum. I spent a total of 45 minutes coordinating, documenting, and providing care for this patient excluding time spent in the performance of separately billed services. This included personally reviewing all current laboratories and imaging studies, medical reconciliation, outpatient chart review and discussion with specialists. This chart was completed in part utilizing Speech Voice Recognition Software. Grammatical errors, random word insertions, pronoun errors, and incomplete sentences are an occasional consequence of this system due to software limitations, ambient noise, and hardware issues. Any formal questions or concerns about the content, text, or information contained within the body of this dictation should be directly addressed to the provider for clarification. Admission and Anticipated Discharge Date Admission Date: May 21, 2024 Supervising Physician Co-Signing Physician Notes Patient seen and examined at bedside. Reports chronic nausea Offers no other complaints today On exam patient is thin, frail, normocephalic atraumatic, EOMI, normal breath sounds, clear to auscultation, S1-S2, no murmur, abdomen soft, nontender, normal bowel sounds, alert, awake, oriented, grossly no focal deficits Continue antibiotics for central line associated bloodstream infection Appreciate vascular surgery help Continue PPN for now I personally interviewed and examined at bedside. Patient's care is coordinated with Erin Painting PA-C. I have reviewed the advanced practitioner's documentation, and I agree with plan of care. Please refer to the documentation above for details of patient's presentation and for discussion of other issues. I spent a total [id number] coordinating, documenting, and providing care for this patient excluding time spent in the performance of separately billed services. Subjective Patient seen and examined at bedside. Comfortable, no acute distress. No acute events overnight. Discussed with her regarding new port placement on Friday. Review of Systems Review of Systems: At least ten systems reviewed and negative, except as noted in the subjective section. Physical Exam Physical Exam: General: Thin, NAD, laying down in bed, appears tired, very pleasant, conversing appropriately. A+Ox3, euthymic affect, PPN running. HEENT: Normocephalic, atraumatic. Conjunctivae normal, anicteric sclerae. External ear and nose normal, oropharynx normal. Respiratory: Normal respiratory effort, lungs clear to auscultation, no wheeze, rales, rhonchi. No accessory muscle use. Cardiovascular: Regular rate, rhythm, no murmur, normal peripheral pulses, no BLE edema. Vessels: No JVD. Abdomen/GI: Normal bowel sounds, soft, nontender, no hepatosplenomegaly. Extremities/Musculoskeletal: No cyanosis or clubbing, extremities motor strength intact, moves all extremities. Neurologic: No focal deficits, CN's II-XI not formally tested but appear grossly intact bilaterally. Skin: Port removal site on L upper chest wall without erythema/drainage, healing well. Keloids noted on the R upper chest wall from previous surgical incisions. Results & Data Results & Data Vital Signs (Past 12 Hours) Vital Signs Temp Pulse Resp BP Pulse Ox O2 Del Method 05/26/24 07:40 36.7 C 81 14 105/74 99 Room Air Laboratory Results Short CBC 05/26/24 Range/Units 05:55 WBC 8.91 (4.8-10.8) K/ul Hgb 12.5 (12.0-16.0) g/dl Hct 37.4 (37.0-47.0) % Plt Count 456 H (130-400) K/uL BMP 05/26/24 05:55 Sodium 137 Potassium 3.9 Chloride 107 Carbon Dioxide 24 BUN 17 Creatinine 0.52 L Glucose 94 Calcium 9.4 (1) Sepsis Sepsis acute organ dysfunction status: without acute organ dysfunction Sepsis type: sepsis due to unspecified organism Qualified Code(s): A41.9 - Sepsis, unspecified organism (3) CLABSI (central line-associated bloodstream infection) Encounter type: subsequent encounter Qualified Code(s): T80.211D - Bloodstream infection due to central venous catheter, subsequent encounter
--- NOTE | 2024-05-26 11:26 | Electrocardiogram Report ---
Test Reason : Blood Pressure : */* mmHG Vent. Rate : 96 BPM Atrial Rate : 96 BPM P-R Int : 136 ms QRS Dur : 76 ms QT Int : 356 ms P-R-T Axes : 56 76 33 degrees QTcB Int : 449 ms Normal sinus rhythm Normal ECG When compared with ECG of 21-May-2024 00:27, Nonspecific T wave abnormality has replaced inverted T waves in Inferior leads Nonspecific T wave abnormality, improved in Anterolateral leads Confirmed by Raj Zuñiga ([id number]) on 05/26/2024 11:25:42 AM Referred By: REFERRED SELF Confirmed By: Raj Zuñiga
[2024-05-26] MEDS: AA 4.25%/D5W 2L 2,104 ML in Peripheral TPN bag 0 ML IV SCH (16:18)
[2024-05-27 06:48] LABS: Hematocrit (blood only) 39.1 % (37.0-47.0); Hemoglobin 13.1 g/dl (12.0-16.0); Mean Corpuscular Hemoglobin 31.1 pg (25.0-34.0); Mean Corpuscular Hgb Conc 33.5 g/dL (32.0-36.0); Mean Corpuscular Volume 92.9 fL (80.0-100.0); Mean Platelet Volume 8.6 fL (9.4-12.4); Platelet Count 532 K/uL (130-400); RDW Coefficient of Variation 12.1 % (11.5-14.5); RDW Standard Deviation 41.5 fL (36.4-46.3); Red Blood Count 4.21 M/uL (4.20-5.40)
[2024-05-27 07:01] LABS: BUN Creatinine Ratio 32.7 (10-20); Calcium 9.2 mg/dl (8.6-10.3); Creatinine Clr Calc Pharmacy 120.9 ml/min; Phosphorus 3.5 mg/dl (2.5-4.9); Potassium 3.9 mmol/L (3.5-5.1)
--- NOTE | 2024-05-27 09:01 | Hospitalist Progress Note ---
Date of Service May 27, 2024 Assessment & Plan (1) Sepsis: (2) MSSA bacteremia: (3) CLABSI (central line-associated bloodstream infection): Plan Priyanka Mccarthy is a 28y/o F with PMHx significant for hypermobile Jaqui Danlos syndrome, POTS on fludrocortisone, severe protein calorie malnutrition/GI dysmotility on chronic TPN therapy [since 2020], history of recurrently CLABSI, history of gastrostomy tube placement, bile reflux gastritis, chronic pain syndrome/chronic abdominal pain, De Quervain's disease, iron deficiency anemia, history of Helicobacter infection and right ovarian cyst who presented to the ED on 05/21/2024 with complaints of increasing erythema and pain around her Infusaport site with associated fever. Patient was previously seen and evaluated in the ED on 05/20/2024 due to pain around her Infusaport site with some overlying erythema. She was discharged home at that time on a course of oral Keflex however her symptoms did not improve and she developed a fever as per above. 2 out of 4 blood cultures from 05/20/2024 grew MSSA. Last confinement was in June of 2023 for Enterococcal septicemia secondary to CLABSI. Sepsis - RESOLVED CLABSI [POA], MSSA Bacteremia: 2 out of 4 blood cultures from 05/20/2024 grew MSSA. Infusaport was removed by general surgery on 05/21/2024. Infusaport catheter tip also grew MSSA. ID consulted --> Continue IV cefazolin 2g Q8H. NAYLA without evidence of vegetation/infective endocarditis on 05/21/2024. Repeat blood cultures from 05/23/24 with NGTD. Per ID --> Plan to continue IV cefazolin Q8H to complete a total of 14 days from NEGATIVE blood cultures: 05/23/24-06/05/2024. Will need weekly CBC with differential and CMP while on antibiotic therapy. No outpatient follow-up with ID required however she will need close PCP follow-up. Continue probiotic. May place a new port once the repeat blood cultures remain negative for 48 to 72 hours as per ID --> Chao catheter insertion on Friday (05/28) with vascular surgery. Severe Protein Calore Malnutrition GI Dysmotility - Dependent on TPN: Patient also has a G-tube in place which she uses to drain after oral intake. Nutrition onboard. PPN started on 05/24/2024 as the patient's oral intake was not adequate enough to meet caloric requirements. Other Chronic Medical Conditions: POTS/GERD/chronic pain syndrome/seasonal allergies/etc. --> Can continue/resume home meds as able. DVT Prophylaxis: SQ Lovenox Code Status: FULL CODE PCP: Meek Lopez MD Disposition: Admitted in Med/Tele - Anticipate Chao catheter insertion tomorrow (05/28) with vascular surgery. Prescriptions for both IV cefazolin and TPN were delivered to case management. Patient seen in collaboration with Dr. Nelson. Please see addendum. I spent a total of 30 minutes coordinating, documenting, and providing care for this patient excluding time spent in the performance of separately billed services. This included personally reviewing all current laboratories and imaging studies, medical reconciliation, outpatient chart review and discussion with specialists. This chart was completed in part utilizing Speech Voice Recognition Software. Grammatical errors, random word insertions, pronoun errors, and incomplete sentences are an occasional consequence of this system due to software limitations, ambient noise, and hardware issues. Any formal questions or concerns about the content, text, or information contained within the body of this dictation should be directly addressed to the provider for clarification. Admission and Anticipated Discharge Date Admission Date: May 21, 2024 Supervising Physician Co-Signing Physician Notes Patient seen and examined at bedside. Reports chronic nausea, chronic abdominal pain No new complaints On exam patient is thin, frail, normocephalic atraumatic, EOMI, normal breath sounds, clear to auscultation, S1-S2, no murmur, abdomen soft, nontender, normal bowel sounds, alert, awake, oriented, grossly no focal deficits Continue antibiotics for central line associated bloodstream infection Appreciate vascular surgery help Continue PPN for now Plan for Chao catheter placement tomorrow Given Chao's double-lumen catheter dedicated to TPN use only, patient will require midline placement prior to discharge for completion of IV antibiotic course I personally interviewed and examined at bedside. Patient's care is coordinated with Erin Painting PA-C. I have reviewed the advanced practitioner's documentation, and I agree with plan of care. Please refer to the documentation above for details of patient's presentation and for discussion of other issues. I spent a total [id number] coordinating, documenting, and providing care for this patient excluding time spent in the performance of separately billed services. Subjective Patient seen and examined at bedside. Comfortable, no acute distress. No acute events overnight. Set to have her Chao catheter placed tomorrow. Updated patient that both her IV antibiotic + TPN prescriptions were given to case rolanda lamas yesterday and are being arranged for discharge. Review of Systems Review of Systems: At least ten systems reviewed and negative, except as noted in the subjective section. Physical Exam Physical Exam: General: Thin, NAD, laying down in bed, appears tired, very pleasant, conversing appropriately. A+Ox3, euthymic affect, PPN running. HEENT: Normocephalic, atraumatic. Conjunctivae normal, anicteric sclerae. External ear and nose normal, oropharynx normal. Respiratory: Normal respiratory effort, lungs clear to auscultation, no wheeze, rales, rhonchi. No accessory muscle use. Cardiovascular: Regular rate, rhythm, no murmur, normal peripheral pulses, no BLE edema. Vessels: No JVD. Abdomen/GI: Normal bowel sounds, soft, nontender, no hepatosplenomegaly. Extremities/Musculoskeletal: No cyanosis or clubbing, extremities motor strength intact, moves all extremities. Neurologic: No focal deficits, CN's II-XI not formally tested but appear grossly intact bilaterally. Skin: Port removal site on L upper chest wall without erythema/drainage, healing well. Keloids noted on the R upper chest wall from previous surgical incisions. Results & Data Results & Data Vital Signs (Past 12 Hours) Vital Signs Temp Pulse Resp BP BP Pulse Ox O2 Del Method 05/27/24 07:03 36.5 C 81 14 96/62 L 96 Room Air 05/26/24 22:25 36.9 C 97 H 12 106/73 98 Room Air Laboratory Results Short CBC 05/27/24 Range/Units 06:28 WBC 8.70 (4.8-10.8) K/ul Hgb 13.1 (12.0-16.0) g/dl Hct 39.1 (37.0-47.0) % Plt Count 532 H (130-400) K/uL BMP 05/27/24 06:28 Sodium 137 Potassium 3.9 Chloride 105 Carbon Dioxide 25 BUN 17 Creatinine 0.52 L Glucose 101 H Calcium 9.2 (1) Sepsis Sepsis acute organ dysfunction status: without acute organ dysfunction Sepsis type: sepsis due to unspecified organism Qualified Code(s): A41.9 - Sepsis, unspecified organism (3) CLABSI (central line-associated bloodstream infection) Encounter type: subsequent encounter Qualified Code(s): T80.211D - Bloodstream infection due to central venous catheter, subsequent encounter
--- NOTE | 2024-05-27 09:55 | Communication Note ---
Date of Service: May 27, 2024 Patient for puente catheter tomorrow. Will place a double lumen so one port can be dedicatted for TPN only.
[2024-05-27] MEDS: AA 4.25%/D5W 2L 2,104 ML in Peripheral TPN bag 0 ML IV SCH (15:33)
[2024-05-28 06:38] LABS: BUN Creatinine Ratio 32.7 (10-20); Calcium 9.4 mg/dl (8.6-10.3); Creatinine Clr Calc Pharmacy 120.9 ml/min; Magnesium 2.1 mg/dl (1.7-2.4); Phosphorus 3.7 mg/dl (2.5-4.9); Potassium 4.1 mmol/L (3.5-5.1)
--- NOTE | 2024-05-28 08:43 | Hospitalist Progress Note ---
Date of Service May 28, 2024 Assessment & Plan Admission and Anticipated Discharge Date Admission Date: May 21, 2024 Results & Data Results & Data Vital Signs (Past 12 Hours) Vital Signs Temp Pulse Resp BP Pulse Ox O2 Del Method 05/28/24 07:19 36.6 C 93 H 16 104/72 98 Room Air 05/27/24 21:30 36.7 C 99 H 12 101/69 97 Room Air
--- NOTE | 2024-05-28 08:57 | History & Physical Bridge Note ---
Date of Service May 28, 2024 History & Physical Bridge Note Patient is to have insertion of a Chao catheter today. I have discussed the risks options and benefits of the procedure with the patient. The patient understands the risks options and benefits and agrees to the procedure. I have examined the patient, reviewed the History & Physical and in the interval since the performance of the History & Physical I have noted the following changes of clinical significance: no changes noted
[2024-05-28] MEDS: fentaNYL citrate PF 100 MCG/2 ML VIAL ONE ×2 (09:40→09:58)
[2024-05-28] MEDS: MIDAZOLAM HCL 1 MG/ML 2ML VIAL ONE ×3 (09:40→10:12)
[2024-05-28] MEDS: LIDOCAINE 1% LOCAL 20 ML VIAL ONE (10:21)
--- NOTE | 2024-05-28 10:24 | Post Anesthesia Assessment ---
Date of Service May 28, 2024 Post Sedation Assessment Vital Signs Temp Pulse Pulse Resp BP Pulse Ox O2 Del Method 05/28/24 10:22 92 H 18 120/74 100 Oxymask 05/28/24 10:17 106 H 16 111/72 100 Oxymask 05/28/24 10:15 110 H 12 116/70 100 Oxymask 05/28/24 10:10 102 H 17 114/78 100 Oxymask 05/28/24 10:05 97 H 17 114/76 100 Oxymask 05/28/24 10:00 94 H 18 112/77 100 Oxymask 05/28/24 09:55 98 H 24 107/67 100 Oxymask 05/28/24 09:50 87 18 109/79 100 Oxymask 05/28/24 09:45 93 H 14 107/77 100 Oxymask 05/28/24 09:40 93 H 16 104/73 100 Oxymask 05/28/24 09:30 87 32 H 114/74 100 Oxymask 05/28/24 08:59 36.8 C 103 H 15 109/73 98 Room Air 05/28/24 07:19 36.6 C 93 H 16 104/72 98 Room Air 05/27/24 21:30 36.7 C 99 H 12 101/69 97 Room Air 05/27/24 14:07 36.4 C L 91 H 16 106/70 97 Room Air Recovery Score Activity: Moves 4 extremities Respiration: Deep Breath/Cough Circulation: +/-20% PreAnes Value Consciousness: Fully Awake Oxygen Saturation: > 92% On Room Air Post Anesthesia Score: 10 Discharge Sedation Level of Care: Fast Track Phase II Post Sedation Plan On clinical assessment, the patient appears to have tolerated the sedation without complications. Patient is recovering as anticipated. Patient will continue to be monitored by nursing and may be discharged when sedation discharge criteria are met per below protocol. Upon Completions of procedure up to 15 minutes continue every 5 minute vital signs and the P.A.R. score; then discharge to a Phase I or Fast Track to Phase II per the following guidelines: * Discharge Patient to appropriate Phase II area if PAR is 8 or greater or return to pre- procedure baseline. The post - procedure orders will be as directed. * If PAR score is less than 8 or not return to pre-procedure baseline then patient will follow Phase I monitoring till PAR is reached for Phase II. The Phase I may be done in procedure room or may call to secure a Phase I area. * If naloxone or flumazenil are used for reversal, hold in Phase I for continued monitoring from when last reversal dose was given for a minimum of 60 minutes or longer pending the nurse and/or physician discretion of patient condition before discharge to Phase II. Please call the Sedation Physician to re-evaluate and complete post-note for discharge to Phase II area. Do NOT discharge from procedure sedation or Phase 1 until post- sedation evaluation note is complete by procedure /sedation MD Sedation Discharge Instructions to be given to the patient at discharge to home.
--- NOTE | 2024-05-28 10:24 | Operative Report ---
Post Operative Report Pre & Post Diagnosis Operation Date: 05/28/24 09:20 Pre-Op Diagnosis: LACK OF INTRAVENOUS ACCESS Post-Op Diagnosis: LACK OF INTRAVENOUS ACCESS I identified the patient and participated in the time-out.: Yes Procedure Operation Date: 05/28/24 09:20 Actual Procedures p Insertion Double Lumen Chao Catheter,Right Internal Jugular Approach,Fluoroscopy for Positioning,Moderate Sedation [id number](Right) - Larry Dick MD Surgeon Larry Dick MD Attractions Associate none Estimated Blood Loss 10 Findings Consistent with Post-Op Diagnosis Specimens none Anesthesia Type RN Sedation Complications none Disposition Accompanied Patient To Recovery: No Disposition: Recovery Room Indications This is a 28-year-old female on permanent TPN. She is in need of an access. Double-lumen Chao was recommended for 1 port for antibiotics 1 port for TPN. I have discussed the risks options and benefits of the procedure with the patient. The patient understands the risks options and benefits and agrees to the procedure. Description of Procedure Patient was taken to the angio suite and placed in the supine position. The right side of the neck and chest wall were prepped and draped in a sterile manner. The patient was identified and a timeout performed. Local anesthesia was then administered to the appropriate areas of the neck and chest wall. Ultrasound was then used to locate the right internal jugular vein. The vein compressed easily, had no filing defects, and was patent. The vein was then punctured under direct ultrasound imaging. A guidewire was then passed centrally under fluoroscopic imaging. A stab wound was then made in the anterior chest wall and a double-lumen Chao was passed from the stab wound on the chest wall to the puncture site on the neck. The puncture site was then dilated till the 10Fr peel away sheath was inserted. The Chao was cut the appropriate length and was then inserted through the sheath to a central position in the distal superior vena cava. The peel away sheath was then removed. The catheter was then sutured in place using nylon sutures. The puncture was then closed using a 4-0 Vicryl subcuticular suture. Dermabond was used for a dressing on the puncture site. Both ports aspirated and flushed easily and were then packed with heparin. A sterile dressing was applied to the catheter. The patient left the operation room in satisfactory condition and tolerated the procedure well. All needle and sponge counts were correct at the end of the procedure. I attest to the content of the Intraoperative Record and any orders documented therein. Any exceptions are noted below.
[2024-05-28] MEDS: LORazepam 0.5 MG TAB PO STA (12:15)
--- NOTE | 2024-05-28 12:42 | Communication Note ---
Date of Service: May 28, 2024 Asked by hospitalist to see pt d/t pt being tearful regarding the puente catheter that was placed. Pt states this "type" of catheter causes occasional itching, and then becomes infected within a month. Advised pt that this is the catheter/IV access she was consented for and agreed to prior to procedure. She made no previous mention of this concern prior to her procedure. Advised pt that this is the only type of catheter available for this use and to use extreme care when accessing it to minimize risk of infection. Catheter material is the same as all other catheter materials. Offered to remove the catheter, but pt refused. Offered to place an infusaport, but pt refused. Pt asked this provider to leave her room.
[2024-05-28 13:55] VITALS: BP 96/62; PULSE 97; RESP 16; TEMP 97.7; O2SAT 96
--- NOTE | 2024-05-28 14:25 | Discharge Summary ---
Discharge Summary Date of Service May 28, 2024 Principal Dx & Hospital Course #1 = Principal Diagnosis (1) Sepsis: (2) MSSA bacteremia: (3) CLABSI (central line-associated bloodstream infection): Plan This is a 28 y/o F with PMH significant for hypermobile Jaqui Danlos syndrome, POTS on fludrocortisone, severe protein calorie malnutrition/GI dysmotility on chronic TPN therapy [since 2020], history of recurrently CLABSI, history of gastrostomy tube placement, bile reflux gastritis, chronic pain syndrome/chronic abdominal pain, De Quervain's disease, iron deficiency anemia, history of Helicobacter infection and right ovarian cyst who presented to the ED on 05/21/2024 with complaints of increasing erythema and pain around her Infusaport site with associated fever. Was initially discharged home from ED on PO Keflex b ut returned for admission when 2 out of 4 blood cultures from 05/20/2024 grew MSSA. Was started on IV cefazolin 2gm Q8H per infectious disease and is to continue for 14 day course. NAYLA without evidence of vegetation/infective endocarditis on 05/21/2024. Repeat blood cultures from 05/23/24 without growth. Underwent insertion Double Lumen Chao Catheter placed by Dr. Dick on 05/28/24 for TPN use only and peripheral IV in place for continued IV abx. Will need weekly CBC with diff and CMP while on antibiotic therapy. No outpatient follow-up with ID required however she will need close PCP follow-up. Has severe calorie malnutrition in setting of GI dysmotility prompting TPN and has close follow up with nutrition as well as PCP. Patient did request follow up discussion with vascular surgery clarifying type of Chao catheter placed. Patient hemodynamically stable at time of discharge home. Notes For Next Care Provider CLABSI growing MSSA Continue IV abx as below Insertion of new double Lumen Chao Catheter placed by Dr. Dick on 05/28/24 for TPN use only Medication Changes From Visit Cefazolin 2g Q8H every 8 hours through 06/05/24 to complete 14 days SUMMARY OF TEST RESULTS: Blood cultures from 05/20/24 2 out of 4 grew MSSA NAYLA without evidence of vegetation/infective endocarditis on 05/21/2024 Repeat blood culture from 05/23/24 with no growth to date S/p Insertion Double Lumen Chao Catheter placed by on 05/28/24 for TPN use only US guided peripheral line in place for ongoing IV antibiotics RECOMMENDATIONS FOR FOLLOW-UP: Please follow up with PCP, Nutrition as scheduled Complete antibiotic in its entirety Will need weekly CBC with differential and CMP while on antibiotic therapy Admission HPI Per Admitting Provider History obtained from patient, family, and records. Medical history significant for POTS, Jaqui-Danlos disease, chronic abdominal pain, GERD, H. pylori infection as per records, GI dysmotility on TPN. Last confinement June 2023 for enterococcal septicemia secondary to catheter related bloodstream infection. Patient's Chao catheter removed by surgery. A port placed during confinement. Patient noted pain on a port site on left chest wall during access at [facility] 2 days ago. Low-grade fever noted. Achy chest discomfort without SOB. No cough symptoms, usual abdominal pain. Patient consulted ER yesterday. Ceftriaxone given at the ER for A port cellulitis. Patient discharged on Keflex course. Patient return to ER due to increasing redness and pain around Mediport with fever. Vancomycin administered at the ER. Medical History as above Surgical History : Vascular procedures, tendon sheath/wrist surgery, GJ tube placement, knee surgery, tympanostomy tube placement Family History : Unknown as patient was adopted Personal/Social history : Non-smoker, no EtOH intake Admission Exam Per Admitting Provider GENERAL: Comfortable, pleasant, no respiratory distress SKIN: Normal color, warm HEENT: [place] palpebral conjunctivae, no ptosis, dry buccal mucosa NECK : Supple, no tenderness CHEST : CTA, tender erythematous swelling over left A port HEART : Tachycardic, no obvious murmurs ABDOMEN: Some distention, nontender EXTREMITIES : No LE swelling/tenderness, no other conspicuous deformities noted NEUROLOGIC : Coherent, no facial asymmetry, no other gross focality Discharge Exam Gen: WD/WN, NAD, thin, intermittently tearful, A&Ox3 HEENT: Normocephalic, atraumatic, conjunctivae moist, sclerae anicteric, mucous membranes moist Lung: Clear to Auscultation bilaterally, no wheezes/rales/rhonchi Heart: tachycardic rate, regular rhythm, no murmurs, rubs, or gallops Abdomen: Soft, NT, ND +BS x 4 Extremities: no edema Skin: Warm, no rash, + central line R IJ, dressing c/d/i Updated Medication List Medication Instructions Recorded Confirmed Type famotidine 20 mg tablet 20 mg PO BID 04/09/21 05/21/24 History fludrocortisone 0.1 mg tablet 0.1 mg PO QAM 04/09/21 05/21/24 History loratadine 10 mg tablet 10 mg PO QAM 04/09/21 05/21/24 History montelukast 10 mg tablet 10 mg PO HS 04/09/21 05/21/24 History (Singulair) ondansetron HCl 8 mg tablet 8 mg PO Q8 PRN Nausea 04/09/21 05/21/24 History linaclotide 145 mcg capsule 145 mcg PO QAM PRN Constipation 01/02/22 05/21/24 History (Linzess) cholecalciferol (vitamin D3) 1,250 1,250 mcg PO WK 01/13/23 05/21/24 History mcg (50,000 unit) capsule granisetron HCl 1 mg tablet 1 mg PO Q12H 09/23/23 05/21/24 History hydroxyzine HCl 10 mg tablet 50 mg PO QID PRN Other 09/23/23 05/21/24 History olanzapine 2.5 mg tablet 2.5 mg PO DAILY 12/17/23 05/21/24 History baclofen 10 mg tablet 10 mg PO BID 05/21/24 05/21/24 History cyanocobalamin (vitamin B-12) 1,000 mcg IM MONTHLY 05/21/24 05/21/24 History 1,000 mcg/mL injection solution duloxetine 20 mg capsule,delayed 20 mg PO DAILY 05/21/24 05/21/24 History release Hospital Stay Data Consultations 05/21/24 01:31 ED Decision to Admit Stat 05/21/24 07:38 Consult Infectious Diseases Routine 05/21/24 08:28 Consult General Surgery Routine 05/24/24 09:10 Consult Vascular Surgery Routine Procedures Performed Operation Date: 05/28/24 09:20 Actual Procedures p Insertion Double Lumen Caho Catheter,Right Internal Jugular Approach,Fluoroscopy for Positioning,Moderate Sedation [id number](Right) - Larry Dick MD Diagnostic Imagining Performed 05/21/24 02:39 CT chest diagnostic w con Stat 05/21/24 04:56 US liver Stat 05/28/24 07:10 EV cvc insrt tunnel wo prt/abalone fisherman Routine US EV guide vascular access Routine Pending Results Patient Have Any Pending Studies at Discharge: No Discharge Instructions Given to Patient (Per Discharging Provider) MEDICATION CHANGES: Continue Cefazolin 2g Q8H every 8 hours through 06/05/24 to complete 14 days, per infectious disease SUMMARY OF TEST RESULTS: Blood cultures from 05/20/24 2 out of 4 grew MSSA NAYLA without evidence of vegetation/infective endocarditis on 05/21/2024 Repeat blood culture from 05/23/24 with no growth to date S/p Insertion Double Lumen Chao Catheter placed by on 05/28/24 for TPN use only US guided peripheral line in place for ongoing IV antibiotics RECOMMENDATIONS FOR FOLLOW-UP: Please follow up with PCP, Nutrition as scheduled Complete antibiotic in its entirety Will need weekly CBC with differential and CMP while on antibiotic therapy Continue medication regimen as scheduled aside from changes noted above OTHER INSTRUCTIONS: Seek medical attention if you have: * temperature above 101 * chest pain or trouble breathing * abdominal pain, nausea, vomiting * diarrhea, dark stools or bloody stools * any unanswered questions or concerns Call 911 if symptoms are severe. Please take good care of yourself. Call if you have any questions or problems. You can reach a [facility] hospitalist on duty at [facility] 24 hours a day by calling [phone]. Total Time Total Time Spent Total Time Spent (In Minutes): 65 Supervising Physician Co-Signing Physician Notes Patient seen and examined at bedside on day of discharge. Patient was upset and tearful after placing Chao catheter given complications in the past. Requested vascular surgery to reevaluate. As per notes, patient refused exchange of the catheter. On exam patient is thin, frail, normocephalic atraumatic, EOMI, normal breath sounds, clear to auscultation, S1-S2, no murmur, abdomen soft, nontender, normal bowel sounds, alert, awake, oriented, grossly no focal deficits Continue antibiotics for central line associated bloodstream infection Appreciate vascular surgery help Transition PPN to TPN Given Chao's double-lumen catheter dedicated to TPN use only, patient will continue IV antibiotics through peripheral line. Advised to follow-up with primary care physician on discharge I personally interviewed and examined at bedside. Patient's care is coordinated with Eli Galeano PA-C. I have reviewed the advanced practitioner's documentation, and I agree with plan of care. Please refer to the documentation above for details of patient's presentation and for discussion of other issues. I spent a total [id number] coordinating, documenting, and providing care for this patient excluding time spent in the performance of separately billed services.
[2024-05-28] MEDS ORDERED: AA 4.25%/D5W 2L 2,104 ML in Peripheral TPN bag 0 ML IV SCH (16:00)
== END 2024-05-28 17:16 | disposition home or self-care (01) | DRG 314 ==
LOC: ED 00:02 → EDINP 02:18 → SUATTDRO 02:18 → 2N 08:00 → 3E 05-23 16:52

== ENCOUNTER 2025-03-24 14:28 | Inpatient (IN) ==
[2025-03-24] MEDS ORDERED: VANCOMYCIN CONSULT ACTIVE PRN ×2 (15:11→21:54)
--- NOTE | 2025-03-24 15:11 | Emergency Department Note ---
Impression & Plan Sepsis, Tachycardia, Severe protein-calorie malnutrition, Acute dehydration, Pneumonitis ED Provider Note NAME: RICK JENKINS AGE: 29 SEX: F : 1995 ARRIVES VIA: Walk-In INFORMANT: Patient, father ED PROVIDER(S): Rikki Lofton DO CHIEF COMPLAINT: fever HPI: This is a 29-year-old female with the PMHx of CVC dependent for hydration/meds, J tube dependence, POTS, severe malnutrition, and Jaqui-Umer presenting to [facility] for further evaluation of Fevers. Patient is accompanied by per father who provide additional history. Patient is reporting high fevers as well as chills over the last day or so. She notes generalized weakness and malaise. She does have congestion and a cough. She states that she recently had an endoscopy procedure leading to aspiration pneumonitis. Patient states that she was put on azithromycin as an outpatient. Patient states she continues to worsen. Patient feels that she is septic. She does note ongoing cough. She has some tenderness at her central line. She is on TPN for nutrition. Denies chest pain or palpitations. No shortness of breath. They deny abdominal pain, nausea and vomiting. No urinary complaints. No recent changes in bowel movements. Patient denies recent changes in medications or OTC supplements. Patient offers no other complaints, today. ADDITIONAL HISTORY OBTAINED: Per HPI Chronic Medical/Social Conditions Affecting Care: Per HPI PAST MEDICAL HISTORY: See Below PAST SURGICAL HISTORY: See Below FAMILY HISTORY: See Below SOCIAL HISTORY: See Below HOME MEDICATIONS: See Below ALLERGIES: See Below VITALS: See Below PHYSICAL EXAMINATION: GENERAL: Sitting up in bed, alert, well appearing, well nourished, no distress, non-toxic EYE EXAM: normal conjunctiva. PERRL and EOM's grossly intact. OROPHARYNX: no exudate, no erythema, lips, buccal mucosa, and tongue normal and mucous membranes are moist NECK: supple, no nuchal rigidity, no adenopathy, non-tender LUNGS: Clear to auscultation. Normal chest wall mechanics HEART: no murmurs, regular rate, regular rhythm, right CVC in place with minimal erythema. No tenderness to palpation. ABDOMEN: abdomen soft, non-tender, no masses, no rebound or guarding. BACK: Back is symmetrical on inspection and there is no deformity, no midline tenderness, no CVA tenderness. SKIN: no rashes and no bruising UPPER EXTREMITIES: upper extremities are grossly normal. LOWER EXTREMITIES: No pitting edema. NEURO EXAM: Normal sensorium, GCS 15, normal speech, no gross weakness of arms, no gross weakness of legs. MEDICAL DECISION MAKING: Differential diagnoses includes but not limited to Sepsis, bacteremia, pneumonia, viral URI, UTI, electrolyte derangements, dehydration, central line infection In summary, this is a 29 year old female who presented with fevers. Differential as above. Nursing notes and pertinent past medical records reviewed. Vital signs reviewed and the patient is febrile tachycardic. History and presentation revealed numerous admissions in the past for bacteremia as well as a central line infection. Recently had MSSA bacteremia. Patient appears to meet SIRS criteria at this time given tachycardia and fever. Would consider her high risk for serious bacterial infections given her history. Will continue broad-spectrum antibiotics and obtain further workup with inflammatory markers, laboratory analysis and chest x-ray. Patient will have a viral swab while in the emergency department. Plan for urinalysis as well. Will give IV fluid resuscitation as well as antipyretics. Diagnostics interpreted by me include EKG and cardiac monitoring as listed below: -Cardiac Monitoring: An order was placed for continuous cardiac monitoring. The monitor shows a rate of 90-150s with regular rhythm. -ECG: EKG independently interpreted by me reveals sinus tachycardia at [address] segment changes to suggest STEMI. Intervals are otherwise within normal limits Patient completed laboratory studies and imaging. Chest x-ray independently interpreted by me reveals no pneumonia. Right sided CVC in place. Results independently interpreted by me are no significant leukocytosis or anemia. Patient does have mild elevation in her lactate with IV fluid resuscitation ongoing.. The creatinine ratio is also increased representing likely dehydration. AST and ALT are slightly elevated. CRP and procalcitonin are also mildly elevated. The patient was managed with broad-spectrum antibiotics and IV fluid resuscitation. Patient does not have a source of sepsis at this time. Suspect possible central line infection and bacteremia. Patient to be admitted to the hospitalist team for further care. Ultimately, the decision was made to admit the patient for sepsis with unclear etiology. I discussed the case with the hospitalist service via telephone/TigerText and they are agreeable to admit the patient to their services. Based on the above, including the patient's age, coexisting illnesses, labs, imaging, and exam findings the decision to treat as an inpatient. I discussed the patient with the hospitalist team who recommended admission to their services. They received the medications, treatments, interventions indicated above and their condition remain guarded. I discussed my findings with the patient and their family and they understand and agree with the treatment plan. All patient / family questions were answered to their satisfaction. . Consults/Care Managements Discussions: Per MDM ER treatment provided: See above Procedures:none Critical Care: None The chart was completed utilizing [employer] voice recognition software. Grammatical errors, random word insertions, pronoun errors, and incomplete sentences are an occasional consequence of this system due to software limitations, ambient noise, and hardware issues. Any formal questions or concerns about the content, text, or information contained within the body of this dictation should be directly addressed to the physician for clarification. Past Med/Surg History Problem List (Updated 03/30/25 @ 00:26 by Rikki Lofton DO) Pneumonitis (Acute) Acute dehydration (Acute) Severe protein-calorie malnutrition (Acute) History of central line-associated bloodstream infection (CLABSI) Bacteremia due to methicillin resistant Staphylococcus epidermidis Infection of venous access port (Acute) Sepsis (Acute) MSSA bacteremia Infection complicating venous access device Bacterial sepsis CLABSI (central line-associated bloodstream infection) Cellulitis (Acute) Bacteremia due to Enterococcus Sepsis Tachycardia (Acute) Central venous catheter in place broke- clamped in ER, taped around site Fungemia DVT prophylaxis Encounter for pre-operative examination (~02/07/23) Gastrointestinal dysmotility Close exposure to COVID-19 virus (Acute) Iron deficiency (Acute) Symptomatic anemia (Acute) Chronic pain POTS (postural orthostatic tachycardia syndrome) History of esophagogastroduodenoscopy (EGD) Severe malnutrition Abdominal pain, chronic, epigastric (Acute) chronic On total parenteral nutrition (TPN) Jaqui-Danlos disease Dx several years ago Medical History Anxiety Gastrointestinal dysmotility Reactive hypoglycemia dexcom present to left arm Anemia Neuropathy legs Gastroparesis History of COVID-19 02/2022, not hospitalized 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 Jejunostomy tube present placed October 2020 Surgical History History of removal of Port-a-Cath (05/21/24) Infusaport Removal - Left side(Left) - Alton Garcia DO, FABRICIO History of myringotomy History of surgery (06/24/21) Removal of Right Tunneled Central Line in Internal Jugular Catheter H/O wisdom tooth extraction H/O wrist surgery right S/P knee surgery Left Family History Other Adopted Social History Smoking Status: Never smoker Second Hand Exposure: No; Do You Dip or Chew Tobacco: No; Hx Alcohol Use: No Hx Substance Use: No Preferred Language: Congolese Communication Ability: Effective 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 Required: No Beliefs That Will Affect Care: None Current Living Situation: Parent Current Living Situation Comment: Lives w/ family at home Feels Safe at Home: Yes Assistive Devices: None Allergies Allergies Allergy/AdvReac Type Severity Reaction Status Date / Time diphenhydramine Allergy Severe Urticaria, Verified 03/24/25 15:52 [From Benadryl] severe anxiety, jittery prochlorperazine Allergy Severe Anaphylaxis Verified 03/24/25 15:52 [From Compazine] adhesive Allergy Intermediate Redness, Verified 03/24/25 15:52 swelling gluten Allergy Intermediate Hives, GI Verified 03/24/25 15:52 upset peanut Allergy Intermediate Itchy Verified 03/24/25 15:52 throat tree nut Allergy Intermediate Itchy Verified 03/24/25 15:52 throat pollen extracts Allergy Mild Itchy Verified 03/24/25 15:52 eyes, sneezing, congestion chlorhexidine Allergy Unknown Unknown Verified 03/24/25 15:52 iron [From Venofer] AdvReac Severe Abdominal Verified 03/24/25 15:52 Pain Latex, Natural Rubber AdvReac Intermediate Redness, Verified 03/24/25 15:52 itchy Home Meds Home Medications Medication Instructions Recorded Confirmed famotidine 20 mg tablet 20 mg PO BID 04/09/21 03/24/25 loratadine 10 mg tablet 10 mg PO QAM 04/09/21 03/24/25 montelukast 10 mg tablet 10 mg PO HS 04/09/21 03/24/25 (Singulair) ondansetron HCl 8 mg tablet 8 mg PO Q8 PRN Nausea 04/09/21 03/24/25 linaclotide 145 mcg capsule 145 mcg PO QAM PRN Constipation 01/02/22 03/24/25 (Linzess) cholecalciferol (vitamin D3) 1,250 1,250 mcg PO WK 01/13/23 03/24/25 mcg (50,000 unit) capsule granisetron HCl 1 mg tablet 1 mg PO Q12H 09/23/23 03/24/25 hydroxyzine HCl 10 mg tablet 50 mg PO QID PRN Anxiety 09/23/23 03/24/25 olanzapine 2.5 mg tablet 2.5 mg PO DAILY 12/17/23 03/24/25 baclofen 10 mg tablet 10 mg PO BID 05/21/24 03/24/25 cyanocobalamin (vitamin B-12) 1,000 mcg IM MONTHLY 05/21/24 03/24/25 1,000 mcg/mL injection solution duloxetine 20 mg capsule,delayed 20 mg PO DAILY 05/21/24 03/24/25 release Previous Rx's Medication Instructions Recorded amoxicillin 500 mg-potassium 1 tab PO Q12H 3 days #6 tabs 03/29/25 clavulanate 125 mg tablet (Augmentin) guaifenesin 600 mg tablet, 1,200 mg (2 x 600 mg) PO Q12 PRN 03/29/25 extended release 12 hr (Mucinex) cough 7 days #7 tabs Results & Data (ED) Vital Signs Vital Signs - 24 hr 03/24/25 14:32 03/24/25 15:25 03/24/25 15:30 Temperature 37.7 C H Temperature Source Oral Pulse Rate 154 H 135 H 128 H Pulse Rate from SpO2 Sensor 127 H Respiratory Rate 18 23 Respiratory Effort / Characteristics Non-Labored Spontaneous Respiratory Depth Normal Respiratory Pattern Regular Blood Pressure 119/77 107/72 Blood Pressure Mean 91 83 Pulse Oximetry 100 98 Oxygen Delivery Method Room Air Sepsis Recent Fever Within 48 Hours Yes Sepsis New/Unexplained Change in Mental Status N/A Sepsis Action Taken by Nursing No Action Required 03/24/25 15:31 Temperature Temperature Source Pulse Rate Pulse Rate from SpO2 Sensor Respiratory Rate Respiratory Effort / Characteristics Respiratory Depth Respiratory Pattern Blood Pressure Blood Pressure Mean Pulse Oximetry 98 Oxygen Delivery Method Room Air Sepsis Recent Fever Within 48 Hours Sepsis New/Unexplained Change in Mental Status Sepsis Action Taken by Nursing Laboratory Data 03/25/25 06:55 03/29/25 06:35 Lab Results 03/24/25 03/24/25 03/24/25 Range/Units 15:04 15:37 16:40 WBC 10.51 (4.8-10.8) K/ul RBC 4.45 (4.20-5.40) M/uL Hgb 12.6 (12.0-16.0) g/dl Hct 38.6 (37.0-47.0) % MCV 86.7 (80.0-100.0) fL MCH 28.3 (25.0-34.0) pg MCHC 32.6 (32.0-36.0) g/dL RDW Std Deviation 45.3 (36.4-46.3) fL RDW Coeff of Priscilla 14.3 (11.5-14.5) % Plt Count 398 (130-400) K/uL MPV 8.8 L (9.4-12.4) fL Immature Gran % (Auto) 1.3 % Neut % (Auto) 80.5 % Lymph % (Auto) 12.3 % [place] % (Auto) 5.1 % Eos % (Auto) 0.4 % Baso % (Auto) 0.4 % Neut # (Auto) 8.46 H (1.40-6.50) K/uL Lymph # (Auto) 1.29 (1.20-3.40) K/uL [place] # (Auto) 0.54 (0.11-0.59) K/uL Eos # (Auto) 0.04 (0.00-0.50) K/uL Baso # (Auto) 0.04 (0.00-0.20) K/uL Immature Gran # (Auto) 0.14 (0.01-0.20) K/uL ESR 27 H (0-20) mm/hr Sodium 136 (136-145) mmol/L Potassium 3.7 (3.5-5.1) mmol/L Chloride 101 (98-107) mmol/L Carbon Dioxide 25 (21-32) mmol/L Anion Gap 10 (3-11) BUN 15 (6-23) mg/dl Creatinine 0.69 (0.6-1.2) mg/dl Est Cr Clr Drug Dosing 88.5 ml/min eGFR 121.91 BUN/Creatinine Ratio 21.7 H (10-20) Glucose 110 H (70-99(Fasting)) mg/dl Lactate 2.4 H* (0.4-2.0) mmol/L Calcium 9.1 (8.6-10.3) mg/dl Magnesium 1.9 (1.7-2.4) mg/dl Total Bilirubin 0.6 (0.2-1.0) mg/dl Direct Bilirubin 0.1 (0-0.2) mg/dl AST 111 H (13-39) U/L ALT 79 H (7-52) U/L Alkaline Phosphatase 92 (34-104) U/L Troponin I High Sens 5.3 (0-14) pg/ml C-Reactive Protein 0.58 H (0-0.5) mg/dl Total Protein 7.3 (6.0-8.3) gm/dl Albumin 4.0 (3.4-5.0) gm/dl Procalcitonin 0.51 H (0-0.5) ng/ml Urine Color Yellow Urine Appearance Clear (Clear) Urine pH 6.5 (4.5-7.5) Ur Specific [place] 1.012 (1.000-1.030) Urine Protein Negative (Negative) Urine Glucose (UA) Negative (Negative) Urine Ketones Negative (Negative) Urine Blood Negative (Negative) Urine Nitrite Negative (Negative) Urine Bilirubin Negative (Negative) Urine Urobilinogen Negative (Negative) Ur Leukocyte Esterase Negative (Negative) Urine Comment Nasal Screen MRSA (PCR) Negative (Negative) Adenovirus (PCR) Not Detected (NotDetected) B. pertussis DNA (PCR) Not Detected (NotDetected) B.parapertussis DNA PCR Not Detected (NotDetected) C. pneumoniae DNA (PCR) Not Detected (NotDetected) Coronavirus OC43 (PCR) Not Detected (NotDetected) Coronavirus HKU1 (PCR) Not Detected (NotDetected) Coronavirus 229E (PCR) Not Detected (NotDetected) SARS-CoV-2 (PCR) Not Detected (NotDetected) Coronavirus NL63 (PCR) Not Detected (NotDetected) Enterobacterales (PCR) DETECTED A (NotDetected) E. coli (PCR) DETECTED A (NotDetected) Hep Bs Antigen Negative (Negative) Hepatitis C Antibody Negative (Negative) Human Metapneumovir PCR Not Detected (NotDetected) Influenza Type A (PCR) Not Detected (NotDetected) Influenza Type B (PCR) Not Detected (NotDetected) M. pneumoniae (PCR) Not Detected (NotDetected) Parainfluenza 1 (PCR) Not Detected (NotDetected) Parainfluenza 2 (PCR) Not Detected (NotDetected) Parainfluenza 3 (PCR) Not Detected (NotDetected) Parainfluenza 4 (PCR) Not Detected (NotDetected) RSV (PCR) Not Detected (NotDetected) Entero/Rhino (PCR) Not Detected (NotDetected) mcr-1 Colistin Res Gene PCR Not Detected (NotDetected) blaIMP Car res Gene PCR Not Detected (NotDetected) KPC-Carbap Res Gene PCR Not Detected (NotDetected) blaNDM Car Res Gene PCR Not Detected (NotDetected) OXA-48 Carbapenem Resis Gene (PCR) Not Detected (NotDetected) blaVIM Car Res Gene PCR Not Detected (NotDetected) CTX-M Gene Resistance (PCR) Not Detected (NotDetected) Bld Cult ID Panel PCR See PCR Comment (NotDetected) 03/24/25 Range/Units 17:54 WBC (4.8-10.8) K/ul RBC (4.20-5.40) M/uL Hgb (12.0-16.0) g/dl Hct (37.0-47.0) % MCV (80.0-100.0) fL MCH (25.0-34.0) pg MCHC (32.0-36.0) g/dL RDW Std Deviation (36.4-46.3) fL RDW Coeff of Priscilla (11.5-14.5) % Plt Count (130-400) K/uL MPV (9.4-12.4) fL Immature Gran % (Auto) % Neut % (Auto) % Lymph % (Auto) % [place] % (Auto) % Eos % (Auto) % Baso % (Auto) % Neut # (Auto) (1.40-6.50) K/uL Lymph # (Auto) (1.20-3.40) K/uL [place] # (Auto) (0.11-0.59) K/uL Eos # (Auto) (0.00-0.50) K/uL Baso # (Auto) (0.00-0.20) K/uL Immature Gran # (Auto) (0.01-0.20) K/uL ESR (0-20) mm/hr Sodium (136-145) mmol/L Potassium (3.5-5.1) mmol/L Chloride (98-107) mmol/L Carbon Dioxide (21-32) mmol/L Anion Gap (3-11) BUN (6-23) mg/dl Creatinine (0.6-1.2) mg/dl Est Cr Clr Drug Dosing ml/min eGFR BUN/Creatinine Ratio (10-20) Glucose (70-99(Fasting)) mg/dl Lactate 2.1 H* (0.4-2.0) mmol/L Calcium (8.6-10.3) mg/dl Magnesium (1.7-2.4) mg/dl Total Bilirubin (0.2-1.0) mg/dl Direct Bilirubin (0-0.2) mg/dl AST (13-39) U/L ALT (7-52) U/L Alkaline Phosphatase (34-104) U/L Troponin I High Sens (0-14) pg/ml C-Reactive Protein (0-0.5) mg/dl Total Protein (6.0-8.3) gm/dl Albumin (3.4-5.0) gm/dl Procalcitonin (0-0.5) ng/ml Urine Color Urine Appearance (Clear) Urine pH (4.5-7.5) Ur Specific [place] (1.000-1.030) Urine Protein (Negative) Urine Glucose (UA) (Negative) Urine Ketones (Negative) Urine Blood (Negative) Urine Nitrite (Negative) Urine Bilirubin (Negative) Urine Urobilinogen (Negative) Ur Leukocyte Esterase (Negative) Urine Comment Nasal Screen MRSA (PCR) (Negative) Adenovirus (PCR) (NotDetected) B. pertussis DNA (PCR) (NotDetected) B.parapertussis DNA PCR (NotDetected) C. pneumoniae DNA (PCR) (NotDetected) Coronavirus OC43 (PCR) (NotDetected) Coronavirus HKU1 (PCR) (NotDetected) Coronavirus 229E (PCR) (NotDetected) SARS-CoV-2 (PCR) (NotDetected) Coronavirus NL63 (PCR) (NotDetected) Enterobacterales (PCR) (NotDetected) E. coli (PCR) (NotDetected) Hep Bs Antigen (Negative) Hepatitis C Antibody (Negative) Human Metapneumovir PCR (NotDetected) Influenza Type A (PCR) (NotDetected) Influenza Type B (PCR) (NotDetected) M. pneumoniae (PCR) (NotDetected) Parainfluenza 1 (PCR) (NotDetected) Parainfluenza 2 (PCR) (NotDetected) Parainfluenza 3 (PCR) (NotDetected) Parainfluenza 4 (PCR) (NotDetected) RSV (PCR) (NotDetected) Entero/Rhino (PCR) (NotDetected) mcr-1 Colistin Res Gene PCR (NotDetected) blaIMP Car res Gene PCR (NotDetected) KPC-Carbap Res Gene PCR (NotDetected) blaNDM Car Res Gene PCR (NotDetected) OXA-48 Carbapenem Resis Gene (PCR) (NotDetected) blaVIM Car Res Gene PCR (NotDetected) CTX-M Gene Resistance (PCR) (NotDetected) Bld Cult ID Panel PCR (NotDetected) Administered Medications Discontinued Medications Acetaminophen (Acetaminophen 500 Mg Tab) 1,000 mg PO NOW STA Stop: 03/24/25 21:17 Last Admin: 03/24/25 21:24 Dose: 1,000 mg Documented By: GUZMAN Baclofen (Baclofen 10 Mg Tab) 10 mg PO BID ZULY Stop: 04/23/25 20:59 Last Admin: 03/29/25 08:03 Dose: 10 mg Documented By: Admin: 03/28/25 20:32 Dose: 10 mg Documented By: Admin: 03/28/25 09:57 Dose: 10 mg Documented By: Admin: 03/27/25 20:14 Dose: 10 mg Documented By: Admin: 03/27/25 09:04 Dose: 10 mg Documented By: Admin: 03/26/25 21:21 Dose: 10 mg Documented By: Admin: 03/26/25 09:40 Dose: 10 mg Documented By: Admin: 03/25/25 20:23 Dose: 10 mg Documented By: Admin: 03/25/25 09:38 Dose: 10 mg Documented By: Admin: 03/24/25 23:18 Dose: 10 mg Documented By: CHASE Duloxetine HCl (Duloxetine Hcl 20 Mg Cap) 20 mg PO DAILY ZULY Stop: 04/24/25 08:59 Last Admin: 03/29/25 08:03 Dose: 20 mg Documented By: Admin: 03/28/25 09:57 Dose: 20 mg Documented By: Admin: 03/27/25 09:04 Dose: 20 mg Documented By: Admin: 03/26/25 09:40 Dose: 20 mg Documented By: Admin: 03/25/25 09:38 Dose: 20 mg Documented By: ANGELA Famotidine (Famotidine 20 Mg Tab) 20 mg PO BID ZULY Stop: 04/23/25 20:59 Last Admin: 03/29/25 08:06 Dose: 20 mg Documented By: Admin: 03/28/25 20:32 Dose: 20 mg Documented By: Admin: 03/28/25 09:57 Dose: 20 mg Documented By: Admin: 03/27/25 20:14 Dose: 20 mg Documented By: Admin: 03/27/25 09:04 Dose: 20 mg Documented By: Admin: 03/26/25 21:21 Dose: 20 mg Documented By: Admin: 03/26/25 09:40 Dose: 20 mg Documented By: Admin: 03/25/25 20:23 Dose: 20 mg Documented By: Admin: 03/25/25 09:47 Dose: 20 mg Documented By: Admin: 03/24/25 23:18 Dose: 20 mg Documented By: CHASE Fentanyl Citrate (Fentanyl Citrate Pf 100 Mcg/2 Ml Vial) Confirm Administered Dose 100 mcg .ROUTE .STK-MED ONE Stop: 03/25/25 13:10 Last Increment: 03/25/25 13:15 Dose: 50 mcg Documented By: CHANTELL Fentanyl Citrate (Fentanyl Citrate Pf 100 Mcg/2 Ml Vial) Confirm Administered Dose 100 mcg .ROUTE .STK-MED ONE Stop: 03/29/25 14:41 Last Increment: 03/29/25 15:10 Dose: 50 mcg Documented By: CHANTELL Increment: 03/29/25 14:45 Dose: 50 mcg Documented By: CHANTELL Guaifenesin (Guaifenesin 600 Mg Tabcr) 1,200 mg PO Q12 PRN PRN Reason: cough Stop: 04/24/25 20:59 Last Admin: 03/29/25 08:03 Dose: 1,200 mg Documented By: JOANNA Heparin Sodium (Beef Lung) (Heparin 10 Unit/Ml 5 Ml Flush) Confirm Administered Dose 10 ml FLUSH .STK-MED ONE Stop: 03/29/25 14:38 Last Admin: 03/29/25 15:59 Dose: Not Given Documented By: JOANNA Heparin Sodium (Porcine) (Heparin Sod 5,000 Unit/0.5 Ml Vial) 5,000 units SQ Q12 ZULY Stop: 04/23/25 21:53 Last Admin: 03/29/25 08:06 Dose: 5,000 units Documented By: Admin: 03/28/25 20:32 Dose: 5,000 units Documented By: Admin: 03/28/25 09:55 Dose: Not Given Documented By: Admin: 03/27/25 20:14 Dose: 5,000 units Documented By: Admin: 03/27/25 09:04 Dose: 5,000 units Documented By: Admin: 03/26/25 21:21 Dose: 5,000 units Documented By: Admin: 03/26/25 09:40 Dose: 5,000 units Documented By: Admin: 03/25/25 20:23 Dose: 5,000 units Documented By: Admin: 03/25/25 09:42 Dose: Not Given Documented By: Admin: 03/24/25 23:18 Dose: 5,000 units Documented By: CHASE Parenteral Electrolytes (Plasma-Lyte A Ph 7.4) 1,000 mls @ 999 mls/hr IV .Q1H1M ONE Stop: 03/24/25 15:47 Last Infusion: 03/24/25 18:55 Dose: Infused Documented By: Admin: 03/24/25 15:13 Dose: 999 mls/hr Documented By: NETO Vancomycin HCl 1,250 mg/ (Sodium Chloride) 525 mls @ 200 mls/hr IV NOW ONE Stop: 03/24/25 17:48 Last Infusion: 03/24/25 19:37 Dose: Infused Documented By: Admin: 03/24/25 16:58 Dose: 200 mls/hr Documented By: LEANDRA Piperacillin Sod/Tazobactam Sod (Zosyn) 4.5 gm in 100 mls @ 200 mls/hr IV NOW ONE; Protocol Stop: 03/24/25 15:40 Last Infusion: 03/24/25 16:03 Dose: Infused Documented By: Admin: 03/24/25 15:33 Dose: 200 mls/hr Documented By: NETO Sodium Chloride (Nss) 1,000 mls @ 85 mls/hr IV .[id number] ZULY Stop: 03/27/25 19:29 Last Admin: 03/27/25 09:00 Dose: Not Given Documented By: Infusion: 03/27/25 08:52 Dose: Infused Documented By: RRCristino Admin: 03/26/25 21:20 Dose: 85 mls/hr Documented By: Infusion: 03/26/25 21:20 Dose: Infused Documented By: Admin: 03/26/25 09:40 Dose: 85 mls/hr Documented By: Infusion: 03/26/25 09:40 Dose: Infused Documented By: Admin: 03/25/25 22:59 Dose: 85 mls/hr Documented By: Infusion: 03/25/25 22:58 Dose: Infused Documented By: Infusion: 03/25/25 13:48 Dose: 85 mls/hr Documented By: GALLERY OR MUSEUM CURATOR Admin: 03/25/25 09:47 Dose: 80 mls/hr Documented By: GALLERY OR MUSEUM CURATOR Infusion: 03/25/25 09:47 Dose: Infused Documented By: Admin: 03/24/25 23:17 Dose: 80 mls/hr Documented By: CHASE Piperacillin Sod/Tazobactam Sod (Zosyn) 4.5 gm in 100 mls @ 25 mls/hr IV Q8H [facility]; Protocol Stop: 03/26/25 21:53 Last Infusion: 03/25/25 10:26 Dose: Infused Documented By: Admin: 03/25/25 06:25 Dose: 25 mls/hr Documented By: Infusion: 03/25/25 03:33 Dose: Infused Documented By: Admin: 03/24/25 23:30 Dose: 25 mls/hr Documented By: CHASE Vancomycin HCl 750 mg/ Sodium (Chloride) 265 mls @ 200 mls/hr IV Q8H ZULY Stop: 03/27/25 00:59 Last Infusion: 03/25/25 11:02 Dose: Infused Documented By: Admin: 03/25/25 09:40 Dose: 200 mls/hr Documented By: Infusion: 03/25/25 03:33 Dose: Infused Documented By: Admin: 03/25/25 02:02 Dose: 200 mls/hr Documented By: CHASE Ceftriaxone Sodium (Rocephin) 2,000 mg in 50 mls @ 100 mls/hr IV DAILY ZULY Stop: 04/08/25 10:59 Last Infusion: 03/29/25 08:45 Dose: Infused Documented By: Admin: 03/29/25 08:08 Dose: 100 mls/hr Documented By: Infusion: 03/28/25 10:33 Dose: Infused Documented By: Admin: 03/28/25 09:57 Dose: 100 mls/hr Documented By: Infusion: 03/27/25 09:21 Dose: Infused Documented By: Admin: 03/27/25 08:39 Dose: 100 mls/hr Documented By: Infusion: 03/26/25 10:26 Dose: Infused Documented By: Admin: 03/26/25 09:40 Dose: 100 mls/hr Documented By: Infusion: 03/25/25 14:33 Dose: Infused Documented By: Admin: 03/25/25 13:58 Dose: 100 mls/hr Documented By: ANGELA Lactated Ringer's (Lr) 1,000 mls @ 85 mls/hr IV .[id number] ZULY Stop: 03/27/25 16:00 Last Infusion: 03/27/25 15:20 Dose: Infused Documented By: Admin: 03/27/25 08:33 Dose: 85 mls/hr Documented By: ROSA Amino Acids 2,130 ml/ (Nutrition (Parenteral)) 2,130 mls @ 88.7 mls/hr IV .Q24H ZULY; Protocol Stop: 03/28/25 15:59 Last Infusion: 03/28/25 16:21 Dose: Infused Documented By: DK Co-signed By: ELLEN Admin: 03/27/25 15:22 Dose: 88.7 mls/hr Documented By: ROSA Co-signed By: MIGUEL Amino Acids 2,130 ml/ (Nutrition (Parenteral)) 2,130 mls @ 88.8 mls/hr IV .Q24H ZULY; Protocol Stop: 03/29/25 15:59 Last Infusion: 03/29/25 16:00 Dose: 88.8 mls/hr Documented By: JOANNA Co-signed By: SEFERINO Infusion: 03/28/25 18:51 Dose: 88.8 mls/hr Documented By: TED Co-signed By: DK Admin: 03/28/25 16:20 Dose: 88.8 mls/hr Documented By: DK Co-signed By: ELLEN Amino Acids 2,130 ml/ (Nutrition (Parenteral)) 2,130 mls @ 88.8 mls/hr IV .Q24H ZULY; Protocol Stop: 03/30/25 15:59 Last Admin: 03/29/25 15:59 Dose: Not Given Documented By: JOANNA Fat Emulsion-[place] Oil/Soybean Oil (Clinolipid 20% Iv Fat Emulsion) 250 mls @ 20.8 mls/hr IV .Q12H2M ZULY Stop: 03/30/25 04:01 Last Admin: 03/29/25 16:00 Dose: Not Given Documented By: JOANNA Ketorolac Tromethamine (Ketorolac Tromethamine 15 Mg/Ml Vial) 15 mg IV NOW STA Stop: 03/24/25 14:48 Last Admin: 03/24/25 15:13 Dose: 15 mg Documented By: NETO Lidocaine HCl (Lidocaine 1% Local 20 Ml Vial) Confirm Administered Dose 1 ml .ROUTE .STK-MED ONE Stop: 03/25/25 13:01 Last Admin: 03/25/25 13:30 Dose: 2 ml Documented By: [id number] Lidocaine HCl (Lidocaine 1% Local 20 Ml Vial) Confirm Administered Dose 20 ml .ROUTE .STK-MED ONE Stop: 03/29/25 14:30 Last Admin: 03/29/25 15:24 Dose: 7.5 ml Documented By: [id number] Loratadine (Loratadine 10 Mg Tab) 10 mg PO QAM [facility] Stop: 04/24/25 08:59 Last Admin: 03/29/25 08:03 Dose: 10 mg Documented By: Admin: 03/28/25 09:57 Dose: 10 mg Documented By: Admin: 03/27/25 09:04 Dose: 10 mg Documented By: Admin: 03/26/25 09:40 Dose: 10 mg Documented By: Admin: 03/25/25 09:38 Dose: 10 mg Documented By: ANGELA Midazolam HCl (Midazolam Hcl 1 Mg/Ml 2ml Vial) Confirm Administered Dose 2 mg .ROUTE .STK-MED ONE Stop: 03/25/25 13:10 Last Increment: 03/25/25 13:15 Dose: 1 mg Documented By: CHANTELL Midazolam HCl (Midazolam Hcl 1 Mg/Ml 2ml Vial) Confirm Administered Dose 2 mg .ROUTE .STK-MED ONE Stop: 03/29/25 14:41 Last Increment: 03/29/25 14:59 Dose: 0.5 mg Documented By: CHANTELL Increment: 03/29/25 14:45 Dose: 1 mg Documented By: CHANTELL Miscellaneous (Granisetron Hcl 1 Mg - Order Awaiting Action) 1 each N/A QS [facility] Stop: 04/24/25 00:00 Last Admin: 03/24/25 23:42 Dose: Not Given Documented By: CHASE Miscellaneous (Stop Order - Lr Fluids) 1 each N/A 1600 ONE Stop: 03/27/25 16:01 Last Admin: 03/27/25 15:22 Dose: 1 each Documented By: ROSA Miscellaneous Information (Nursing To Pharmacy Communication) 1 each N/A TODAY [facility] Stop: 04/24/25 06:59 Last Admin: 03/25/25 10:26 Dose: Not Given Documented By: ANGELA Montelukast Sodium (Montelukast Sodium 10 Mg Tablet) 10 mg PO HS [facility] Stop: 04/23/25 20:59 Last Admin: 03/28/25 20:32 Dose: 10 mg Documented By: Admin: 03/27/25 20:14 Dose: 10 mg Documented By: Admin: 03/26/25 22:04 Dose: 10 mg Documented By: Admin: 03/25/25 20:23 Dose: 10 mg Documented By: Admin: 03/24/25 23:19 Dose: 10 mg Documented By: CHASE Olanzapine (Olanzapine 2.5 Mg Tab) 2.5 mg PO DAILY ZULY Stop: 04/24/25 08:59 Last Admin: 03/29/25 08:03 Dose: 2.5 mg Documented By: Admin: 03/28/25 09:57 Dose: 2.5 mg Documented By: Admin: 03/27/25 09:04 Dose: 2.5 mg Documented By: Admin: 03/26/25 09:41 Dose: 2.5 mg Documented By: Admin: 03/25/25 09:39 Dose: 2.5 mg Documented By: ANGELA Ondansetron HCl (Ondansetron Inj 2 Mg/Ml 2 Ml Vial) 4 mg IV Q4H PRN PRN Reason: Nausea Stop: 04/23/25 21:53 Last Admin: 03/26/25 14:19 Dose: 4 mg Documented By: ROSA Imaging Data Radiologist's Impression: Chest X-Ray 03/24/25 14:47 XR chest 1V portable CLINICAL HISTORY: Sepsis COMPARISON STUDY: 11/29/2024 FINDINGS: Stable right central catheter. Heart size and pulmonary vasculature are normal. No consolidation or pleural effusion. No pneumothorax. IMPRESSION: No pneumonia seen. ACT 112: Negative or not required by law. Electronically signed by: Alton Paula M.D. 03/24/2025 3:12 PM Discharge Plan Visit Data Chief Complaint: Fever Stated Complaint: FEVER, HAVE A CENTRAL LINE, ED Provider: Rikki Lofton Discharge Problem: Sepsis, Tachycardia, Severe protein-calorie malnutrition, Acute dehydration, Pneumonitis Patient Disposition: Admitted As Inpatient Condition: Serious Discharge Instructions Interventions: ED Discharge Assessment Last Done: 03/24/25 19:30
[2025-03-24] MEDS: PLASMA-LYTE A 1,000 ML IV ONE (15:13)
[2025-03-24] MEDS: KETOROLAC TROMETHAMINE 15 MG/ML VIAL IV STA (15:13)
--- NOTE | 2025-03-24 15:13 | XRay Report ---
XR chest 1V portable CLINICAL HISTORY: Sepsis COMPARISON STUDY: 11/29/2024 FINDINGS: Stable right central catheter. Heart size and pulmonary vasculature are normal. No consolid ation or pleural effusion. No pneumothorax. IMPRESSION: No pneumonia seen. ACT 112: Negative or not required by law. Electronically signed by: Alton Paula M.D. 03/24/2025 3:12 PM
[2025-03-24 15:19] LABS: Hematocrit (blood only) 38.6 % (37.0-47.0); Hemoglobin 12.6 g/dl (12.0-16.0); Immature Granulocytes # (auto) 0.14 K/uL (0.01-0.20); Immature Granulocytes % (auto) 1.3 %; Mean Corpuscular Hemoglobin 28.3 pg (25.0-34.0); Mean Corpuscular Volume 86.7 fL (80.0-100.0); Platelet Count 398 K/uL (130-400); RDW Standard Deviation 45.3 fL (36.4-46.3); Red Blood Count 4.45 M/uL (4.20-5.40); White Blood Count 10.51 K/ul (4.8-10.8)
[2025-03-24] MEDS: PIPERACILLIN/TAZOBACTAM 4.5 GM/100 ML BAG IV ONE (15:33)
[2025-03-24 15:45] LABS: Alanine Aminotransferase 79.0 U/L (7-52); Alkaline Phosphatase 92.0 U/L (34-104); Anion Gap 10.0 (3-11); Bilirubin,Total 0.6 mg/dl (0.2-1.0); Blood Urea Nitrogen 15.0 mg/dl (6-23); Calcium 9.1 mg/dl (8.6-10.3); Carbon Dioxide 25.0 mmol/L (21-32); Chloride 101.0 mmol/L (98-107); Creatinine Clr Calc Pharmacy 88.5 ml/min; Glucose 110.0 mg/dl (70-99(Fasting)); Magnesium 1.9 mg/dl (1.7-2.4); Potassium 3.7 mmol/L (3.5-5.1); Sodium 136.0 mmol/L (136-145); Total Protein 7.3 gm/dl (6.0-8.3)
[2025-03-24] MEDS: VANCOMYCIN HCL 1,250 MG in SODIUM CHLORIDE 0.9% 500 ML IV ONE (16:58)
[2025-03-24 17:11] LABS: Appearance Urine Clear (Clear); Glucose Urine UA Negative (Negative)
[2025-03-24 17:26] LABS: Chlamydia pneumoniae PCR Not Detected (NotDetected); Coronavirus 229E PCR Not Detected (NotDetected); Coronavirus CoV-2 (COVID19)PCR Not Detected (NotDetected); Coronavirus HKU1 PCR Not Detected (NotDetected); Coronavirus NL63 PCR Not Detected (NotDetected); Coronavirus OC43PCR Not Detected (NotDetected); Human Metapneumovirus PCR Not Detected (NotDetected); Parainfluenza Virus 1 PCR Not Detected (NotDetected); Parainfluenza Virus 2 PCR Not Detected (NotDetected); Parainfluenza Virus 3 PCR Not Detected (NotDetected); Parainfluenza Virus 4 PCR Not Detected (NotDetected); Respiratory Syncytial VirusPCR Not Detected (NotDetected); Rhinovirus/Enterovirus PCR Not Detected (NotDetected)
--- NOTE | 2025-03-24 18:04 | History & Physical Report ---
Date of Service March 24, 2025 Assessment & Plan (1) Fever: (2) History of central line-associated bloodstream infection (CLABSI): (3) Severe protein-calorie malnutrition: (4) Gastrointestinal dysmotility: (5) On total parenteral nutrition (TPN): Plan Ms. Mccarthy is a 29-year-old female with PMHx significant for hypermobile Jaqui Danlos syndrome, POT, severe protein calorie malnutrition and GI dysmotility on chronic TPN therapy since 2020, chronic nausea, history of recurrent CLABSI, bile reflux gastritis, chronic pain syndrome, CESILIA, history of Helicobacter pylori infection and right ovarian cyst who presented to the ED due to fever. Several prior admissions for central line-associated bloodstream infections. Confinement under our service in May 2024 with central line-associated MSSA bacteremia s/p IV Ancef x 14d course. Most recent confinement under our service in November 2024 with central line-associated Staphylococcus epidermidis bacteremia s/p IV daptomycin x 14d course with retained line. Confinement at [facility] 12/24/24-01/03/25 with MSSA bacteremia secondary to infected CVC TPN line. CVC TPN line replaced - located on upper R chest wall. TTE: no evidence of endo carditis. S/p IV Ancef course completed on 01/09/25. 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 S/p empiric IV vancomycin and Zosyn in ED. UA and respiratory BioFire negative. CXR negative as outlined below. No clear source of infection at this time but strong suspicion of recurrent CLABSI. Continue empiric vancomycin and Zosyn pending blood culture results (cultures obtained both from CVC line and periphery). Check TTE to rule out underlying endocarditis. Likely will need to have CVC line removed and subsequently replaced for TPN. Again, awaiting blood culture results. MIVF overnight and follow repeat lactic acid trend. Severe protein calorie malnutrition Gastrointestinal dysmotility on chronic TPN therapy since 2020 GI nutrition recommended changing pt's G-tube for a GJ tube with the hope of starting enteral feedings during [facility] confinement in December. -GJ tube was placed by IR on 12/29/24 and exchanged on 01/03/25. -Tube feed initiation was not tolerated while inpatient secondary to nausea. TPN was continued while inpatient and tolerated using new CVC line. Pt has attempted several tube feedings since December without success secondary to nausea. Does take in some enteral nutrition, ex: ice cream, chicken. Pt also with h/o recurrent malpositioning of GJ tube requiring multiple replacements/reintervention for placement positioning with both IR and GI. Pt underwent replacement of her GJ tube with Dr. Galaviz at [facility] on 02/25/25. Since pt was not tolerating tube feeds through her GJ tube, she underwent removal of this on 03/10/25 and had a G-tube placed to allow for gastric venting. 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 Currently receiving TPN through her R upper chest wall CVC line. Current TPN Regimen: 2.8 L TPN x14 hours 6 days per week with 72 gm aa, 200 gm dextrose (lipid days) vs 250 gm dextrose (non-lipid days), and 53 gm lipid 2x/week (1138 Kcals vs 1498 Kcals on lipid days 2x/week) -1L fluids per week on off day (rotates - "mental health day") -Provides 24-32 Kcals/kg and 1.6 gm protein/kg Appreciate nutrition consult to arrange pt's TPN. Pt follows with nutrition and weight management through [facility]. 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 Recent LLL aspiration pneumonitis/PNA Occurred after replacement of her GJ tube with Dr. Galaviz at [facility] on 02/25/25. Patient developed a persistent nonproductive cough after this procedure. CTAP done 03/04/2025 which revealed a left lower lobe aspiration pneumonitis/or pneumonia. Pt was prescribed a Z-Fernando for this which she completed. Pt still with persistent dry cough. Did have repeat OP CXR on 03/08/2025 which revealed no acute findings. CXR on admission today with no acute findings. Again, respiratory BioFire panel negative as well. Has trialed Tessalon Perles and prednisone taper without any relief. OP GI provider recommended trying Delsym but pt had not done this so will trial this and monitor her response. Elevated LFTs AST 111, ALT 79 - both WNL on DC from last confinement under our service. Unclear etiology, ? related to TPN; monitor repeat LFTs in AM. 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 Check routine acute hepatitis panel for completeness. Appreciate GI consult for further evaluation given pt complexity. Chronic pain syndrome Follows with pain management through [facility]. Continue Baclofen and Cymbalta. Chronic nausea Continue granisetron and Zyprexa. PRN IV Zofran for refractory N/V. Seasonal allergies Continue Singular and Claritin. DVT Prophylaxis: SCDs/TEDs, SQ heparin Disposition: Admit to med/telemetry Patient seen in collaboration with Dr. Baumann. Please see addendum. I spent a total of 82 minutes coordinating, documenting, and providing care for this patient excluding time spent in the performance of separately billed services or time spent by another provider/QHP. This included personally reviewing all current laboratories and imaging studies, medical reconciliation, outpatient chart review and discussion with specialists. This chart was completed in part utilizing Speech Voice Recognition Software. Grammatical errors, random word insertions, pronoun errors, and incomplete sentences are an occasional consequence of this system due to software limitations, ambient noise, and hardware issues. Any formal questions or concerns about the content, text, or information contained within the body of this dictation should be directly addressed to the provider for clarification. History of Present Illness Chief Complaint: Fever Primary Care Provider: Meek Lopez MD Patient is a 29-year-old female with PMHx significant for hypermobile Jaqui Danlos syndrome, POT, severe protein calorie malnutrition and GI dysmotility on chronic TPN therapy since 2020, chronic nausea, history of recurrent CLABSI, bile reflux gastritis, chronic pain syndrome, CESILIA, history of Helicobacter pylori infection and right ovarian cyst who presented to the ED due to fever. History obtained from the patient, patient's mother at bedside, discussion with ED provider and associated chart review. Several prior admissions for central line-associated bloodstream infections. Confinement under our service in May 2024 with central line-associated MSSA bacteremia s/p IV Ancef x 14d course. Most recent confinement under our service in November 2024 with central line-associated Staphylococcus epidermidis bacteremia s/p IV daptomycin x 14d course with retained line. Patient then admitted at [facility] 12/24/2024-01/03/2025 with MSSA bacteremia secondary to infected CVC TPN line. The line was removed by IR within 24hr of admission. Patient was initially started on broad-spectrum antibiotics which were subsequently narrowed to Ancef, which she completed on 01/09/2025. TTE revealed no evidence of endocarditis. Repeat blood cultures were negative for greater than 72 hours prior to placement of new CVC line by IR in right upper chest wall. GI nutrition recommended changing patient's G-tube for a GJ tube with the hope of starting enteral feedings. This was placed by IR on 12/29/2024 and exchanged on 01/03/2025. Tube feed initiation was not tolerated while inpatient secondary to nausea. TPN was continued while inpatient and tolerated using new CVC line. Patient has attempted several tube feedings since December without success secondary to nausea. Does take in some enteral nutrition. Patient also with history of recurrent malpositioning of GJ tube requiring multiple replacement s/reintervention for placement positioning with both IR and GI. Patient underwent replacement of her GJ tube with Dr. Galaviz at [facility] on 02/25/2025. Patient developed a persistent nonproductive cough after this procedure and had a CTAP done on 03/04/2025 which revealed a left lower lobe aspiration pneumonitis/or pneumonia. Patient was prescribed a Z-Fernando for this which she comp leted. Still with persistent dry cough. Has trialed course of prednisone as well as Tessalon Perles without any relief. Did have repeat OP CXR on 03/08/2025 which revealed no acute findings. CXR in ED today again with no acute findings. Since patient was not tolerating tube feeds through her GJ tube, she underwent removal of this on 03/10/2025 and had a G-tube placed to allow for gastric venting. 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 Patient is currently receiving parenteral nutrition through her right upper chest wall CVC line. Current TPN Regimen: 2.8 L TPN x14 hours 6 days per week with 72 gm aa, 200 gm dextrose (lipid days) vs 250 gm dextrose (non-lipid days), and 53 gm lipid 2x/week (1138 Kcals vs 1498 Kcals on lipid days 2x/week) -1L fluids per week on off day (rotates - "mental health day") -Provides 24-32 Kcals/kg and 1.6 gm protein/kg Patient follows with nutrition and weight management through [facility]. Patient states she woke up today feeling sweaty and took her temperature which revealed a fever of 101F. Also was experiencing palpations with and noted that her HR was fluctuating between 122-198bpm per her readings on her Apple Watch device. Other than her continual persistent dry cough, her only other main complaint is a fever. States she had been feeling otherwise fine up until this morning. Chronic abdominal pain unchanged from baseline as well as her chronic nausea. No recent bouts of vomiting. Denies any bowel or urinary habit changes. No new diffuse skin rashes. Has a very small amount of erythema superiorly to the insertion site of her CVC line in the upper chest wall but she has been associating this to her stitches, which she has been sensitive to in the past with a similar skin reaction after getting new CVC lines placed. Denies any tenderness with palpation around the insertion site of her CVC line. Also no reported discharge from her CVC line insertion site. Most recently changed her dressing over this site last evening. Allergies Allergy/AdvReac Type Severity Reaction Status Date / Time diphenhydramine Allergy Severe Urticaria, Verified 03/24/25 15:52 [From Benadryl] severe anxiety, jittery prochlorperazine Allergy Severe Anaphylaxis Verified 03/24/25 15:52 [From Compazine] adhesive Allergy Intermediate Redness, Verified 03/24/25 15:52 swelling gluten Allergy Intermediate Hives, GI Verified 03/24/25 15:52 upset peanut Allergy Intermediate Itchy Verified 03/24/25 15:52 throat tree nut Allergy Intermediate Itchy Verified 03/24/25 15:52 throat pollen extracts Allergy Mild Itchy Verified 03/24/25 15:52 eyes, sneezing, congestion chlorhexidine Allergy Unknown Unknown Verified 03/24/25 15:52 iron [From Venofer] AdvReac Severe Abdominal Verified 03/24/25 15:52 Pain Latex, Natural Rubber AdvReac Intermediate Redness, Verified 03/24/25 15:52 itchy Home Medications Medication Instructions Recorded Confirmed Type famotidine 20 mg tablet 20 mg PO BID 04/09/21 03/24/25 History loratadine 10 mg tablet 10 mg PO QAM 04/09/21 03/24/25 History montelukast 10 mg tablet 10 mg PO HS 04/09/21 03/24/25 History (Singulair) ondansetron HCl 8 mg tablet 8 mg PO Q8 PRN Nausea 04/09/21 03/24/25 History linaclotide 145 mcg capsule 145 mcg PO QAM PRN Constipation 01/02/22 03/24/25 History (Linzess) cholecalciferol (vitamin D3) 1,250 1,250 mcg PO WK 01/13/23 03/24/25 History mcg (50,000 unit) capsule granisetron HCl 1 mg tablet 1 mg PO Q12H 09/23/23 03/24/25 History hydroxyzine HCl 10 mg tablet 50 mg PO QID PRN Anxiety 09/23/23 03/24/25 History olanzapine 2.5 mg tablet 2.5 mg PO DAILY 12/17/23 03/24/25 History baclofen 10 mg tablet 10 mg PO BID 05/21/24 03/24/25 History cyanocobalamin (vitamin B-12) 1,000 mcg IM MONTHLY 05/21/24 03/24/25 History 1,000 mcg/mL injection solution duloxetine 20 mg capsule,delayed 20 mg PO DAILY 05/21/24 03/24/25 History release Past Med/Surg History Problem List (Updated 03/24/25 @ 20:37 by Erin Painting PA-C) Severe protein-calorie malnutrition History of central line-associated bloodstream infection (CLABSI) Bacteremia due to methicillin resistant Staphylococcus epidermidis Infection of venous access port (Acute) Sepsis (Acute) MSSA bacteremia Infection complicating venous access device Bacterial sepsis CLABSI (central line-associated bloodstream infection) Cellulitis (Acute) Bacteremia due to Enterococcus Sepsis Tachycardia (Acute) Central venous catheter in place broke- clamped in ER, taped around site Fungemia DVT prophylaxis Encounter for pre-operative examination (~02/07/23) Gastrointestinal dysmotility Close exposure to COVID-19 virus (Acute) Iron deficiency (Acute) Symptomatic anemia (Acute) Chronic pain POTS (postural orthostatic tachycardia syndrome) History of esophagogastroduodenoscopy (EGD) Severe malnutrition Abdominal pain, chronic, epigastric (Acute) chronic On total parenteral nutrition (TPN) Jaqui-Danlos disease Dx several years ago Medical History Anxiety Gastrointestinal dysmotility Reactive hypoglycemia dexcom present to left arm Anemia Neuropathy legs Gastroparesis History of COVID-19 02/2022, not hospitalized 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 Jejunostomy tube present placed October 2020 Surgical History History of removal of Port-a-Cath (05/21/24) Infusaport Removal - Left side(Left) - Alton Garcia DO, FABRICIO History of myringotomy History of surgery (06/24/21) Removal of Right Tunneled Central Line in Internal Jugular Catheter H/O wisdom tooth extraction H/O wrist surgery right S/P knee surgery Left Family History Other Adopted Social History Smoking Status: Never smoker Second Hand Exposure: No; Do You Dip or Chew Tobacco: No; Hx Alcohol Use: No Hx Substance Use: No Preferred Language: Dutch Communication Ability: Effective 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 Physical Exam Physical Exam: General: Thin F, NAD, laying down in bed, A&Ox3, very pleasant, pt's mother at bedside HEENT: Normocephalic, atraumatic, oropharynx normal Respiratory: Normal respiratory effort, CTAB, on RA Cardiovascular: Tachycardic (HR 110) but regular rhythm, no BLE edema Abdomen/GI: Active bowel sounds, G-tube site intact without any surrounding erythema or drainage, soft, nondistended, nontender to palpation in all quadrants Extremities/Musculoskeletal: No cyanosis or clubbing, extremities motor strength intact, moves all extremities Neurologic: No overt focal deficits, CN's II-XI not formally tested but appear grossly intact bilaterally Skin: CVC line in R upper chest wall with stitches and small erythematous patch superior to insertion site but no drainage and this area is nontender to palpation Results & Data Results & Data Vital Signs (Past 12 Hours) Vital Signs Temp Pulse Pulse Resp BP BP Pulse Ox 03/24/25 16:31 134 H 20 105/71 98 03/24/25 15:31 98 03/24/25 15:30 128 H 23 107/72 98 03/24/25 15:25 135 H 03/24/25 14:32 37.7 C H 154 H 18 119/77 100 O2 Del Method 03/24/25 16:31 Room Air 03/24/25 15:31 Room Air 03/24/25 15:30 03/24/25 15:25 03/24/25 14:32 Room Air Laboratory Results Short CBC 03/24/25 Range/Units 15:04 WBC 10.51 (4.8-10.8) K/ul Hgb 12.6 (12.0-16.0) g/dl Hct 38.6 (37.0-47.0) % Plt Count 398 (130-400) K/uL BMP 03/24/25 15:04 Sodium 136 Potassium 3.7 Chloride 101 Carbon Dioxide 25 BUN 15 Creatinine 0.69 Glucose 110 H Calcium 9.1 Liver Function 03/24/25 Range/Units 15:04 Total Bilirubin 0.6 (0.2-1.0) mg/dl Direct Bilirubin 0.1 (0-0.2) mg/dl AST 111 H (13-39) U/L ALT 79 H (7-52) U/L Alkaline Phosphatase 92 (34-104) U/L Albumin 4.0 (3.4-5.0) gm/dl Urine 03/24/25 Range/Units 16:40 Urine Color Yellow Urine Appearance Clear (Clear) Urine pH 6.5 (4.5-7.5) Ur Specific [place] 1.012 (1.000-1.030) Urine Protein Negative (Negative) Urine Glucose (UA) Negative (Negative) Diagnostic Findings Chest X-Ray 03/24/25 14:47 XR chest 1V portable CLINICAL HISTORY: Sepsis COMPARISON STUDY: 11/29/2024 FINDINGS: Stable right central catheter. Heart size and pulmonary vasculature are normal. No consolidation or pleural effusion. No pneumothorax. IMPRESSION: No pneumonia seen. ACT 112: Negative or not required by law. Electronically signed by: Alton Paula M.D. 03/24/2025 3:12 PM Medications Administered Discontinued Medications Parenteral Electrolytes (Plasma-Lyte A Ph 7.4) 1,000 mls @ 999 mls/hr IV .Q1H1M ONE Stop: 03/24/25 15:47 Last Admin: 03/24/25 15:13 Dose: 999 mls/hr Documented By: NETO Vancomycin HCl 1,250 mg/ (Sodium Chloride) 525 mls @ 200 mls/hr IV NOW ONE Stop: 03/24/25 17:48 Last Admin: 03/24/25 16:58 Dose: 200 mls/hr Documented By: LEANDRA Piperacillin Sod/Tazobactam Sod (Zosyn) 4.5 gm in 100 mls @ 200 mls/hr IV NOW ONE; Protocol Stop: 03/24/25 15:40 Last Infusion: 03/24/25 16:03 Dose: Infused Documented By: Admin: 03/24/25 15:33 Dose: 200 mls/hr Documented By: NETO Ketorolac Tromethamine (Ketorolac Tromethamine 15 Mg/Ml Vial) 15 mg IV NOW STA Stop: 03/24/25 14:48 Last Admin: 03/24/25 15:13 Dose: 15 mg Documented By: NETO Code Status & VTE Plan Code Status FULL CODE Supervising Physician Co-Signing Physician Notes Attending addendum: The patient was seen and evaluated in the emergency room in presence of the mother She has been complaining of fever of 101 since this morning associated with chills and sweating and also palpitation She also has a cough mostly dry and has been finishing a course of tapering prednisone and also received azithromycin for pneumonitis She also has nausea but no significant abdominal pain or vomiting with it and denies any diarrhea On examination Noted to have minimal fever at 37.7 with tachycardia but no other acute distress Chestclear to auscultate bilaterally Heart:S1-S2, regular Abdomenbenign, the PEG tube site is intact without any infection and drainage and bowel sounds present Extremities negative for any edema Her labs and imaging studies reviewed Fever with sepsis with increased lactic acid tachycardia To rule out bacteremia with history of recurrent bacteremia in the past Significant history of gastrointestinal dysmotility with severe malnutrition- requiring parenteral nutrition to maintain nutrition status Has been tolerating minimal amount of foods orally She has had change of single catheter in December in [place] and this is her 4th or 5th infection with bacteremia Blood cultures were taken and she was started with intravenous Zosyn and vancomycin Her other medical conditions remained stable as mentioned above Agree with assessment and plan as outlined above by Blanca PA-C and take the full responsibility of care in the hospital Dr Crystal Baumann (1) Fever Fever type: due to other condition Qualified Code(s): R50.81 - Fever pre senting with conditions classified elsewhere
[2025-03-24] MEDS ORDERED: TPN/PPN CONSULT PHARMACY PRN (19:34)
[2025-03-24] MEDS ORDERED: LINACLOTIDE 145 MCG CAPSULE PO PRN (20:27)
[2025-03-24] MEDS ORDERED: DEXTROMETHORPHAN POLYMR COMPLX 30MG/5 ML BTL PO PRN (20:31)
[2025-03-24] MEDS: ACETAMINOPHEN 500 MG TAB PO STA (21:24)
[2025-03-24 21:30] LABS: Hep B Surface Ag with confirm Negative (Negative)
[2025-03-24] MEDS ORDERED: MAGNESIUM HYDROXIDE SUSP 30 ML UDC PO PRN (21:54)
[2025-03-24] MEDS ORDERED: ACETAMINOPHEN 325 MG TAB PO PRN (21:54)
[2025-03-24] MEDS ORDERED: POLYETHYLENE (MIRALAX) 17 GM PACK PO PRN (21:54)
[2025-03-24] MEDS: SODIUM CHLORIDE 0.9% 1,000 ML IV SCH (23:17)
[2025-03-24] MEDS: FAMOTIDINE 20 MG TAB PO SCH (23:18)
[2025-03-24] MEDS: HEPARIN SOD 5,000 UNIT/0.5 ML VIAL SQ SCH (23:18)
[2025-03-24] MEDS: BACLOFEN 10 MG TAB PO SCH (23:18)
[2025-03-24] MEDS: MONTELUKAST SODIUM 10 MG TABLET PO SCH (23:19)
[2025-03-24] MEDS: PIPERACILLIN/TAZOBACTAM 4.5 GM/100 ML BAG IV SCH (23:30)
[2025-03-25 00:12] LABS: A calco-baum cmplx NotReported Not Detected (NotDetected); Bact fragilis Not Reported Not Detected (NotDetected); Blood Culture Id Panel See PCR Comment (NotDetected); C auris Not Reported Not Detected (NotDetected); CTX-M Resistant Gene Not Detected (NotDetected); Calbicans Not Reported Not Detected (NotDetected); Candida glabrata Not Reported Not Detected (NotDetected); Candida krusei Not Reported Not Detected (NotDetected); Cneoformans/gatti Not Reported Not Detected (NotDetected); Cparapsilosis Not Reported Not Detected (NotDetected); Ctropicalis Not Reported Not Detected (NotDetected); E cloacae compx Not Reported Not Detected (NotDetected); Efaecalis Not Reported Not Detected (NotDetected); Efaecium Not Reported Not Detected (NotDetected); Enterobacterales DETECTED (NotDetected); Enterobacterales Not Reported DETECTED (NotDetected); Escherichia coli Not Reported DETECTED (NotDetected); H influenzae Not Reported Not Detected (NotDetected); IMP Resistant Gene Not Detected (NotDetected); K aerogenes Not Reported Not Detected (NotDetected); KPC Resistant Gene Not Detected (NotDetected); Koxytoca Not Reported Not Detected (NotDetected); Kpneumoniae grp Not Reported Not Detected (NotDetected); Lmonocyt Not Reported Not Detected (NotDetected); N meningitidis Not Reported Not Detected (NotDetected); NDM Resistant Gene Not Detected (NotDetected); OXA 48 Like Resistant Gene Not Detected (NotDetected); P aeruginosa Not Reported Not Detected (NotDetected); Proteus spp Not Reported Not Detected (NotDetected); Salmonella spp Not Reported Not Detected (NotDetected); Staph lugdunensis Not Reported Not Detected (NotDetected); Staph spp. Not Reported Not Detected (NotDetected); Staphaureus Not Reported Not Detected (NotDetected); Staphepi Not Reported Not Detected (NotDetected); Stenmaltophilia Not Reported Not Detected (NotDetected); Strep agal(GrpB) Not Reported Not Detected (NotDetected); Strep pneum Not Reported Not Detected (NotDetected); Strep pyog (GrpA) Not Reported Not Detected (NotDetected); Strep spp Not Reported Not Detected (NotDetected); VIM Resistant Gene Not Detected (NotDetected); mcr-1 Colistin Resistant Gene Not Detected (NotDetected)
[2025-03-25 01:50] LABS: Hep C Ab Rflx HepCQuant RNA Negative (Negative)
[2025-03-25] MEDS: VANCOMYCIN 750 MG in SODIUM CHLORIDE 0.9% 250 ML IV SCH (02:02)
[2025-03-25 07:21] LABS: Hematocrit (blood only) 36.8 % (37.0-47.0); Hemoglobin 11.9 g/dl (12.0-16.0); Immature Granulocytes # (auto) 0.08 K/uL (0.01-0.20); Immature Granulocytes % (auto) 1.5 %; Mean Corpuscular Hemoglobin 28.3 pg (25.0-34.0); Mean Corpuscular Volume 87.6 fL (80.0-100.0); Platelet Count 311 K/uL (130-400); RDW Standard Deviation 46.9 fL (36.4-46.3); Red Blood Count 4.20 M/uL (4.20-5.40); White Blood Count 5.37 K/ul (4.8-10.8)
[2025-03-25 07:41] LABS: Alanine Aminotransferase 90.0 U/L (7-52); Albumin Globulin Ratio 1.3 (0.9-2); Alkaline Phosphatase 81.0 U/L (34-104); Anion Gap 5.0 (3-11); Bilirubin,Total 0.6 mg/dl (0.2-1.0); Blood Urea Nitrogen 8.0 mg/dl (6-23); Calcium 8.4 mg/dl (8.6-10.3); Carbon Dioxide 26.0 mmol/L (21-32); Chloride 110.0 mmol/L (98-107); Creatinine Clr Calc Pharmacy 90.1 ml/min; Globulin 2.7 gm/dl (2.5-4.0); Glucose 81.0 mg/dl (70-99(Fasting)); Magnesium 2.2 mg/dl (1.7-2.4); Potassium 4.0 mmol/L (3.5-5.1); Sodium 141.0 mmol/L (136-145); Total Protein 6.1 gm/dl (6.0-8.3); Triglycerides 212.0 mg/dl (0-150)
--- NOTE | 2025-03-25 08:45 | Gastrointestinal Consultation ---
Date of Consultation March 25, 2025 Assessment & Plan (1) Gastrointestinal dysmotility: 29 year old female with history infectious autoimmune neuropathy, POTS, EDS, poor PO intake and TPN dependent, history of recurrent central line-associated bloodstream infection, GJ tube placement w/ recent exchange then replaced nearly 10 days later for PEG tube only evaluated at [facility] --> [facility] [place] [facility] --> [facility] to establish GI care with Dr. Camp at [place] in Fall 2024 admitted to [facility] w/ fevers, GI was asked to evaluate for elevated LFTs, GI dysmotility on TPN. She has history of recurrent central line-associated bloodstream infection and is admitted w/ fevers and positive blood cultures. Appreciate vascular medicine evaluation. Her elevated transaminases may be related to underlying infection. However, recommend to follow hepatitis panel that was ordered. Recommend ABD US to rule out any structural abnormality. Continue to trend daily. If LFTs remain elevated after infection is treated or if transaminitis worsens, must this could be related to TPN. Thank you for allowing us to participate in the care of this patient. Please call with any acute changes, questions or concerns. Please see addendum below with additional recommendation from my supervising physician. I spent a total of 60 minutes on the date of service in review of patient's record, and previously obtained information in person and appropriate medical visit, discussion and education of plan, with patient and/or caregiver, placing orders for tests/referral/procedures as medically necessary and documentation of pertinent clinical information in patient's medical records for their visit today. Supervising Physician Co-Signing Physician Notes I personally saw and examined the patient. I have reviewed the chart and agree with the documentation provided by the [employer] including discussion about the assessment, treatment and plan. Briefly, 29 year old female with history infectious autoimmune neuropathy, POTS, EDS, poor PO intake and TPN dependent, history of recurrent central line-associated bloodstream infection, GJ tube placement w/ recent exchange then replaced nearly 10 days later for PEG tube only evaluated at [facility] --> [facility] [place] --> [facility] --> [facility] to establish GI care with Dr. Camp at [place] in Fall 2024 admitted to [facility] w/ fevers, GI was asked to evaluate for elevated LFTs, GI dysmotility on TPN. She has history of recurrent central line-associated bloodstream infection and is admitted w/ fevers and positive blood cultures. Appreciate vascular medicine evaluation. Her elevated transaminases are likely related to her current sepsis from line infection. I am sure that her chronic TPN use over 3 to 4 years is also contributing to this mild elevation in LFTs. No role for acute biopsy. Her hep B and C serologies so far have come back negative hep A is pending. No current GI role, we will sign off please have her follow-up with Dr. Camp. History of Present Illness Reason for Consultation: Elevated LFTs, GI dysmotility on TPN Requesting Physician: Jose Cruz Farias MD Attending Physician: Jose Cruz Farias MD History of Present Illness 29 year old female with history infectious autoimmune neuropathy, POTS, EDS, poor PO intake and TPN dependent, history of recurrent central line-associated bloodstream infection along, GJ tube placement w/ recent exchange then replaced nearly 10 days later for PEG tube only evaluated at [facility] --> [facility] [place] [facility] --> [facility] to establish GI care with Dr. Camp at [place] in Fall 2024 admitted to [facility] w/ fevers, GI was asked to evaluate for elevated LFTs, GI dysmotility on TPN. She notes she was recently on a course of oral prednisone and oral ABX directed by her primary team for a cough since early February and imaging was concerning for aspiration pneumonitis. She notes as past of this work up OP labs done and her transaminases were mildly elevated (AST 46 and ALT 55). She suggests prior to this her LFTs were normal. She does recall when TPN was first initiated around 2020 that she has elevated LFTs but this improved with different formula. Tb 0.6 AST 111 --> 77 ALT 79 --> 90 ALKP 92 --> 81 She has positive blood cultures (gram negative bacilli) No recent abdominal imaging this admission EGD 03/10/25: Normal esophagus. A gastric tube with tip in the jejunum was found in the stomach.Normal examined duodenum. The PEJ was removed because of discomfort and replaced with an externally removable PEG for gastric decompression. No specimens collected. EGD 02/25/25: Normal esophagus. Intact gastrostomy with a patent G-tube present characterized by healthy appearing mucosa. Normal examined duodenum. The PEG was removed because it was looped, and replaced with an externally removable PEJ. No specimens collected. NM COMPREHENSIVE GI TRANSIT STUDY 08/10/21: Esophageal transit study negative for delayed emptying. Liquid only gastric emptying study is positive for delayed emptying. Combined liquid-solid study is borderline positive for delayed liquid gastric emptying, and negative for delayed solid gastric emptying. Small bowel study is negative for delayed small bowel transit. Large bowel study is positive for delayed large bowel transit. Allergies Allergy/AdvReac Type Severity Reaction Status Date / Time diphenhydramine Allergy Severe Urticaria, Verified 03/24/25 15:52 [From Benadryl] severe anxiety, jittery prochlorperazine Allergy Severe Anaphylaxis Verified 03/24/25 15:52 [From Compazine] adhesive Allergy Intermediate Redness, Verified 03/24/25 15:52 swelling gluten Allergy Intermediate Hives, GI Verified 03/24/25 15:52 upset peanut Allergy Intermediate Itchy Verified 03/24/25 15:52 throat tree nut Allergy Intermediate Itchy Verified 03/24/25 15:52 throat pollen extracts Allergy Mild Itchy Verified 03/24/25 15:52 eyes, sneezing, congestion chlorhexidine Allergy Unknown Unknown Verified 03/24/25 15:52 iron [From Venofer] AdvReac Severe Abdominal Verified 03/24/25 15:52 Pain Latex, Natural Rubber AdvReac Intermediate Redness, Verified 03/24/25 15:52 itchy Home Medications Medication Instructions Recorded Confirmed Type famotidine 20 mg tablet 20 mg PO BID 04/09/21 03/24/25 History loratadine 10 mg tablet 10 mg PO QAM 04/09/21 03/24/25 History montelukast 10 mg tablet 10 mg PO HS 04/09/21 03/24/25 History (Singulair) ondansetron HCl 8 mg tablet 8 mg PO Q8 PRN Nausea 04/09/21 03/24/25 History linaclotide 145 mcg capsule 145 mcg PO QAM PRN Constipation 01/02/22 03/24/25 History (Linzess) cholecalciferol (vitamin D3) 1,250 1,250 mcg PO WK 01/13/23 03/24/25 History mcg (50,000 unit) capsule granisetron HCl 1 mg tablet 1 mg PO Q12H 09/23/23 03/24/25 History hydroxyzine HCl 10 mg tablet 50 mg PO QID PRN Anxiety 09/23/23 03/24/25 History olanzapine 2.5 mg tablet 2.5 mg PO DAILY 12/17/23 03/24/25 History baclofen 10 mg tablet 10 mg PO BID 05/21/24 03/24/25 History cyanocobalamin (vitamin B-12) 1,000 mcg IM MONTHLY 05/21/24 03/24/25 History 1,000 mcg/mL injection solution duloxetine 20 mg capsule,delayed 20 mg PO DAILY 05/21/24 03/24/25 History release Patient History Medical History Anxiety Gastrointestinal dysmotility Reactive hypoglycemia dexcom present to left arm Anemia Neuropathy legs Gastroparesis History of COVID-19 02/2022, not hospitalized 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 Jejunostomy tube present placed October 2020 Surgical History History of removal of Port-a-Cath (05/21/24) Infusaport Removal - Left side(Left) - Alton Garcia, , FACS History of myringotomy History of surgery (06/24/21) Removal of Right Tunneled Central Line in Internal Jugular Catheter H/O wisdom tooth extraction H/O wrist surgery right S/P knee surgery Left Family History Other Adopted Social History Smoking Status: Never smoker Second Hand Exposure: No; Do You Dip or Chew Tobacco: No; Hx Alcohol Use: No Hx Substance Use: No Preferred Language: Swazi Communication Ability: Effective Physician Office Secretary Required: No Beliefs That Will Affect Care: None Current Living Situation: Parent Current Living Situation Comment: Lives w/ family at home Other Information That Helps Us Care for You: No Feels Safe at Home: Yes Safety Concerns: Feels Safe At This Time Assistive Devices: Contacts and Glasses Review of Systems Review of Systems: All other findings negative except as noted in HPI. Physical Exam Respiratory: normal respiratory effort Cardiovascular: Rate/Rhythm: regular rate Gastrointestinal (Abdomen): normal bowel sounds, soft, nontender, no hepatosplenomegaly Skin: no rashes, warm and dry Results & Data Vital Signs (Past 12 Hours) Vital Signs Temp Pulse Pulse Resp BP Pulse Ox Pulse Ox 03/25/25 07:44 98.1 F 84 18 95/63 L 98 03/25/25 05:50 74 03/25/25 03:11 97.3 F L 79 16 95/64 L 98 03/24/25 22:32 03/24/25 22:28 106 H 03/24/25 21:54 99.9 F H 96 H 18 109/78 96 03/24/25 21:54 96 03/24/25 21:00 101.8 F H 118 H 20 96/68 L 96 O2 Del Method O2 Del Method 03/25/25 07:44 Room Air 03/25/25 05:50 03/25/25 03:11 Room Air 03/24/25 22:32 Room Air 03/24/25 22:28 03/24/25 21:54 Room Air 03/24/25 21:54 Room Air 03/24/25 21:00 Room Air Laboratory Results 03/25/25 03/25/25 03/24/25 Range/Units 06:55 04:37 22:15 WBC 5.37 (4.8-10.8) K/ul RBC 4.20 (4.20-5.40) M/uL Hgb 11.9 L (12.0-16.0) g/dl Hct 36.8 L (37.0-47.0) % MCV 87.6 (80.0-100.0) fL MCH 28.3 (25.0-34.0) pg MCHC 32.3 (32.0-36.0) g/dL RDW Std Deviation 46.9 H (36.4-46.3) fL RDW Coeff of Priscilla 14.6 H (11.5-14.5) % Plt Count 311 (130-400) K/uL MPV 8.6 L (9.4-12.4) fL Immature Gran % (Auto) 1.5 % Neut % (Auto) 63.4 % Lymph % (Auto) 26.8 % Caldwell % (Auto) 6.7 % Eos % (Auto) 0.9 % Baso % (Auto) 0.7 % Neut # (Auto) 3.40 (1.40-6.50) K/uL Lymph # (Auto) 1.44 (1.20-3.40) K/uL [place]dwell # (Auto) 0.36 (0.11-0.59) K/uL Eos # (Auto) 0.05 (0.00-0.50) K/uL Baso # (Auto) 0.04 (0.00-0.20) K/uL Immature Gran # (Auto) 0.08 (0.01-0.20) K/uL ESR (0-20) mm/hr Sodium 141 (136-145) mmol/L Potassium 4.0 (3.5-5.1) mmol/L Chloride 110 H (98-107) mmol/L Carbon Dioxide 26 (21-32) mmol/L Anion Gap 5 (3-11) BUN 8 (6-23) mg/dl Creatinine 0.68 (0.6-1.2) mg/dl Est Cr Clr Drug Dosing 90.1 ml/min eGFR 122.34 BUN/Creatinine Ratio 11.8 (10-20) Glucose 81 (70-99(Fasting)) mg/dl POC Glucose 73 88 (70-99) mg/dl Lactate (0.4-2.0) mmol/L Calcium 8.4 L (8.6-10.3) mg/dl Phosphorus 3.9 (2.5-4.9) mg/dl Magnesium 2.2 (1.7-2.4) mg/dl Total Bilirubin 0.6 (0.2-1.0) mg/dl Direct Bilirubin (0-0.2) mg/dl AST 77 H (13-39) U/L ALT 90 H (7-52) U/L Alkaline Phosphatase 81 (34-104) U/L Troponin I High Sens (0-14) pg/ml C-Reactive Protein (0-0.5) mg/dl Total Protein 6.1 (6.0-8.3) gm/dl Albumin 3.4 (3.4-5.0) gm/dl Globulin 2.7 (2.5-4.0) gm/dl Albumin/Globulin Ratio 1.3 (0.9-2) Triglycerides 212 H (0-150) mg/dl Procalcitonin (0-0.5) ng/ml Urine Color Urine Appearance (Clear) Urine pH (4.5-7.5) Ur Specific Florence (1.000-1.030) Urine Protein (Negative) Urine Glucose (UA) (Negative) Urine Ketones (Negative) Urine Blood (Negative) Urine Nitrite (Negative) Urine Bilirubin (Negative) Urine Urobilinogen (Negative) Ur Leukocyte Esterase (Negative) Urine Comment Nasal Screen MRSA (PCR) (Negative) Adenovirus (PCR) (NotDetected) B. pertussis DNA (PCR) (NotDetected) B.parapertussis DNA PCR (NotDetected) C. pneumoniae DNA (PCR) (NotDetected) Coronavirus OC43 (PCR) (NotDetected) Coronavirus HKU1 (PCR) (NotDetected) Coronavirus 229E (PCR) (NotDetected) SARS-CoV-2 (PCR) (NotDetected) Coronavirus NL63 (PCR) (NotDetected) Enterobacterales (PCR) (NotDetected) E. coli (PCR) (NotDetected) Hepatitis A IgM Ab Hep Bs Antigen (Negative) Hep B Core IgM Ab Hepatitis C Antibody (Negative) Human Metapneumovir PCR (NotDetected) Influenza Type A (PCR) (NotDetected) Influenza Type B (PCR) (NotDetected) M. pneumoniae (PCR) (NotDetected) Parainfluenza 1 (PCR) (NotDetected) Parainfluenza 2 (PCR) (NotDetected) Parainfluenza 3 (PCR) (NotDetected) Parainfluenza 4 (PCR) (NotDetected) RSV (PCR) (NotDetected) Entero/Rhino (PCR) (NotDetected) mcr-1 Colistin Res Gene PCR (NotDetected) blaIMP Car res Gene PCR (NotDetected) KPC-Carbap Res Gene PCR (NotDetected) blaNDM Car Res Gene PCR (NotDetected) OXA-48 Carbapenem Resis Gene (PCR) (NotDetected) blaVIM Car Res Gene PCR (NotDetected) CTX-M Gene Resistance (PCR) (NotDetected) Bld Cult ID Panel PCR (NotDetected) 03/24/25 03/24/25 03/24/25 Range/Units 20:52 17:54 16:40 WBC (4.8-10.8) K/ul RBC (4.20-5.40) M/uL Hgb (12.0-16.0) g/dl Hct (37.0-47.0) % MCV (80.0-100.0) fL MCH (25.0-34.0) pg MCHC (32.0-36.0) g/dL RDW Std Deviation (36.4-46.3) fL RDW Coeff of Priscilla (11.5-14.5) % Plt Count (130-400) K/uL MPV (9.4-12.4) fL Immature Gran % (Auto) % Neut % (Auto) % Lymph % (Auto) % Caldwell % (Auto) % Eos % (Auto) % Baso % (Auto) % Neut # (Auto) (1.40-6.50) K/uL Lymph # (Auto) (1.20-3.40) K/uL [place] # (Auto) (0.11-0.59) K/uL Eos # (Auto) (0.00-0.50) K/uL Baso # (Auto) (0.00-0.20) K/uL Immature Gran # (Auto) (0.01-0.20) K/uL ESR (0-20) mm/hr Sodium (136-145) mmol/L Potassium (3.5-5.1) mmol/L Chloride (98-107) mmol/L Carbon Dioxide (21-32) mmol/L Anion Gap (3-11) BUN (6-23) mg/dl Creatinine (0.6-1.2) mg/dl Est Cr Clr Drug Dosing ml/min eGFR BUN/Creatinine Ratio (10-20) Glucose (70-99(Fasting)) mg/dl POC Glucose (70-99) mg/dl Lactate 1.6 2.1 H* (0.4-2.0) mmol/L Calcium (8.6-10.3) mg/dl Phosphorus (2.5-4.9) mg/dl Magnesium (1.7-2.4) mg/dl Total Bilirubin (0.2-1.0) mg/dl Direct Bilirubin (0-0.2) mg/dl AST (13-39) U/L ALT (7-52) U/L Alkaline Phosphatase (34-104) U/L Troponin I High Sens (0-14) pg/ml C-Reactive Protein (0-0.5) mg/dl Total Protein (6.0-8.3) gm/dl Albumin (3.4-5.0) gm/dl Globulin (2.5-4.0) gm/dl Albumin/Globulin Ratio (0.9-2) Triglycerides (0-150) mg/dl Procalcitonin (0-0.5) ng/ml Urine Color Yellow Urine Appearance Clear (Clear) Urine pH 6.5 (4.5-7.5) Ur Specific [place] 1.012 (1.000-1.030) Urine Protein Negative (Negative) Urine Glucose (UA) Negative (Negative) Urine Ketones Negative (Negative) Urine Blood Negative (Negative) Urine Nitrite Negative (Negative) Urine Bilirubin Negative (Negative) Urine Urobilinogen Negative (Negative) Ur Leukocyte Esterase Negative (Negative) Urine Comment Nasal Screen MRSA (PCR) (Negative) Adenovirus (PCR) (NotDetected) B. pertussis DNA (PCR) (NotDetected) B.parapertussis DNA PCR (NotDetected) C. pneumoniae DNA (PCR) (NotDetected) Coronavirus OC43 (PCR) (NotDetected) Coronavirus HKU1 (PCR) (NotDetected) Coronavirus 229E (PCR) (NotDetected) SARS-CoV-2 (PCR) (NotDetected) Coronavirus NL63 (PCR) (NotDetected) Enterobacterales (PCR) (NotDetected) E. coli (PCR) (NotDetected) Hepatitis A IgM Ab Pending Hep Bs Antigen (Negative) Hep B Core IgM Ab Pending Hepatitis C Antibody (Negative) Human Metapneumovir PCR (NotDetected) Influenza Type A (PCR) (NotDetected) Influenza Type B (PCR) (NotDetected) M. pneumoniae (PCR) (NotDetected) Parainfluenza 1 (PCR) (NotDetected) Parainfluenza 2 (PCR) (NotDetected) Parainfluenza 3 (PCR) (NotDetected) Parainfluenza 4 (PCR) (NotDetected) RSV (PCR) (NotDetected) Entero/Rhino (PCR) (NotDetected) mcr-1 Colistin Res Gene PCR (NotDetected) blaIMP Car res Gene PCR (NotDetected) KPC-Carbap Res Gene PCR (NotDetected) blaNDM Car Res Gene PCR (NotDetected) OXA-48 Carbapenem Resis Gene (PCR) (NotDetected) blaVIM Car Res Gene PCR (NotDetected) CTX-M Gene Resistance (PCR) (NotDetected) Bld Cult ID Panel PCR (NotDetected) 03/24/25 03/24/25 Range/Units 15:37 15:04 WBC 10.51 (4.8-10.8) K/ul RBC 4.45 (4.20-5.40) M/uL Hgb 12.6 (12.0-16.0) g/dl Hct 38.6 (37.0-47.0) % MCV 86.7 (80.0-100.0) fL MCH 28.3 (25.0-34.0) pg MCHC 32.6 (32.0-36.0) g/dL RDW Std Deviation 45.3 (36.4-46.3) fL RDW Coeff of Priscilla 14.3 (11.5-14.5) % Plt Count 398 (130-400) K/uL MPV 8.8 L (9.4-12.4) fL Immature Gran % (Auto) 1.3 % Neut % (Auto) 80.5 % Lymph % (Auto) 12.3 % Caldwell % (Auto) 5.1 % Eos % (Auto) 0.4 % Baso % (Auto) 0.4 % Neut # (Auto) 8.46 H (1.40-6.50) K/uL Lymph # (Auto) 1.29 (1.20-3.40) K/uL [place]dwell # (Auto) 0.54 (0.11-0.59) K/uL Eos # (Auto) 0.04 (0.00-0.50) K/uL Baso # (Auto) 0.04 (0.00-0.20) K/uL Immature Gran # (Auto) 0.14 (0.01-0.20) K/uL ESR 27 H (0-20) mm/hr Sodium 136 (136-145) mmol/L Potassium 3.7 (3.5-5.1) mmol/L Chloride 101 (98-107) mmol/L Carbon Dioxide 25 (21-32) mmol/L Anion Gap 10 (3-11) BUN 15 (6-23) mg/dl Creatinine 0.69 (0.6-1.2) mg/dl Est Cr Clr Drug Dosing 88.5 ml/min eGFR 121.91 BUN/Creatinine Ratio 21.7 H (10-20) Glucose 110 H (70-99(Fasting)) mg/dl POC Glucose (70-99) mg/dl Lactate 2.4 H* (0.4-2.0) mmol/L Calcium 9.1 (8.6-10.3) mg/dl Phosphorus (2.5-4.9) mg/dl Magnesium 1.9 (1.7-2.4) mg/dl Total Bilirubin 0.6 (0.2-1.0) mg/dl Direct Bilirubin 0.1 (0-0.2) mg/dl AST 111 H (13-39) U/L ALT 79 H (7-52) U/L Alkaline Phosphatase 92 (34-104) U/L Troponin I High Sens 5.3 (0-14) pg/ml C-Reactive Protein 0.58 H (0-0.5) mg/dl Total Protein 7.3 (6.0-8.3) gm/dl Albumin 4.0 (3.4-5.0) gm/dl Globulin (2.5-4.0) gm/dl Albumin/Globulin Ratio (0.9-2) Triglycerides (0-150) mg/dl Procalcitonin 0.51 H (0-0.5) ng/ml Urine Color Urine Appearance (Clear) Urine pH (4.5-7.5) Ur Specific [place] (1.000-1.030) Urine Protein (Negative) Urine Glucose (UA) (Negative) Urine Ketones (Negative) Urine Blood (Negative) Urine Nitrite (Negative) Urine Bilirubin (Negative) Urine Urobilinogen (Negative) Ur Leukocyte Esterase (Negative) Urine Comment Nasal Screen MRSA (PCR) Negative (Negative) Adenovirus (PCR) Not Detected (NotDetected) B. pertussis DNA (PCR) Not Detected (NotDetected) B.parapertussis DNA PCR Not Detected (NotDetected) C. pneumoniae DNA (PCR) Not Detected (NotDetected) Coronavirus OC43 (PCR) Not Detected (NotDetected) Coronavirus HKU1 (PCR) Not Detected (NotDetected) Coronavirus 229E (PCR) Not Detected (NotDetected) SARS-CoV-2 (PCR) Not Detected (NotDetected) Coronavirus NL63 (PCR) Not Detected (NotDetected) Enterobacterales (PCR) DETECTED A (NotDetected) E. coli (PCR) DETECTED A (NotDetected) Hepatitis A IgM Ab Hep Bs Antigen Negative (Negative) Hep B Core IgM Ab Hepatitis C Antibody Negative (Negative) Human Metapneumovir PCR Not Detected (NotDetected) Influenza Type A (PCR) Not Detected (NotDetected) Influenza Type B (PCR) Not Detected (NotDetected) M. pneumoniae (PCR) Not Detected (NotDetected) Parainfluenza 1 (PCR) Not Detected (NotDetected) Parainfluenza 2 (PCR) Not Detected (NotDetected) Parainfluenza 3 (PCR) Not Detected (NotDetected) Parainfluenza 4 (PCR) Not Detected (NotDetected) RSV (PCR) Not Detected (NotDetected) Entero/Rhino (PCR) Not Detected (NotDetected) mcr-1 Colistin Res Gene PCR Not Detected (NotDetected) blaIMP Car res Gene PCR Not Detected (NotDetected) KPC-Carbap Res Gene PCR Not Detected (NotDetected) blaNDM Car Res Gene PCR Not Detected (NotDetected) OXA-48 Carbapenem Resis Gene (PCR) Not Detected (NotDetected) blaVIM Car Res Gene PCR Not Detected (NotDetected) CTX-M Gene Resistance (PCR) Not Detected (NotDetected) Bld Cult ID Panel PCR See PCR Comment (NotDetected) PG Care Time/CCT Total # of Minutes Spent Total Time Spent with Patient: Total time spent is greater than 50% in coordination of care (as documented) at patient's floor/unit and/or counseling patient: Coding Level of Care Code 83457 IN/OBS CONSULT LVL 4,60M Diagnoses Gastrointestinal dysmotility K92.89
--- NOTE | 2025-03-25 09:23 | Vascular Surgery Consultation ---
Date of Consultation March 25, 2025 Assessment & Plan (1) CLABSI (central line-associated bloodstream infection): -currently with e. coli bacteremia, currently on vanco and Zosyn -history of multiple CLABSIs in past (MSSA, staph epidermidis, fungemia) -most recent tunneled line last placed 12/2024 ([facility]) -Discussed removal with hospitalist and can plan for this afternoon -Recommend ID consult -currently with peripheral IV access via peripheral line and midline. Will eventually need central line replaced for continued TPN after blood cultures negative for at least 48-72 hours, and at that time would need to plan for silicone line placement as she does not tolerate power lines. Patient with E. coli bacteremia without other identified source. Will proceed with removal of tunneled central line today. Encounter type: subsequent encounter Qualified Code(s): T80.211D - Bloodstream infection due to central venous catheter, subsequent encounter (2) Bacteremia due to Enterococcus: -continue IV antibiotics and await sensitivities -If line removed, would need line holiday prior to providing new central venous access History of Present Illness Reason for Consultation: central line infection, consideration for Chao removal Attending Physician: Jose Cruz Farias MD History of Present Illness Priyanka is a 29 year old female with PMHx significant for chronic GI dysmotility (on chronic TPN with recurrent CLABSI) resulting in severe protein calorie malnutrition, hypermobile EDS, POTS, chronic nausea, chronic pain syndrome, bile reflux gastritis, CESILIA, history of H. pylori infection, who was admitted on 03/24/25 after presenting to ED with fever, sweats and elevated heart rate/palpitations, with blood cultures positive for gram negative bacilli. History was obtained from both patient and review of patient's chart. As mentioned, patient has a history of chronic GI dysmotility and nausea, resulting in need for chronic TPN. In the past she has had a port, which subsequently was removed due to fungemia, and has had multiple tunneled central lines since that time. In the recent past she has been hospitalized in May 2024 with central line associated MSSA bacteremia to her left sided port, which was removed, and treated with Ancef x 14 days and placement of new Chao at that time after multiple days of repeat negative cultures. Also hospitalized in November 2024 with central line associated staph epidermidis bacteremia, treated with 14 days daptomycin, with line remaining in place. Her most recent central line associated infection was in December 2024, with central line associated MSSA bacteremia, patient admitted to [place] campus at that time. Her tunneled central line was removed by IR at that time, and she was again treated with Ancef. She did have new right sided tunneled central line placed while in [place] after repeat blood cultures negative for greater than 72 hours. She currently takes little PO due to her chronic nausea and abdominal pain. She does have G tube in currently which she uses for venting only. She has had multiple attempts at trialing GJ tubes, however these have been unsuccessful due to positional issues with GJ tube becoming malpositioned multiple times. Important to note she does not tolerate polyurethane lines (power lines), but does tolerate silicone lines. Her lines are locked with heparin. She is allergic to chlorhexidine. She denies any history of blood clots in her arms or neck. She does note that she has difficult with IV access in her arms, but was told her neck and chest veins are still good for central access. She currently denies any fevers or chills. Only complaint at this time is her headache and her chronic abdominal pain. She denies any discharge around the tunnel site or any erythema to the tunnel site Lab work significant for blood cultures with gram negative bacilli (e. coli) 03/24/25, WBC 10.5 on admission, now 5.37, elevated ESR. elevated CRP, minimally elevated procalcitonin. She has been started on vanco and Zosyn and awaiting sensitivities from blood cultures. Current IV access includes one peripheral and one midline. Allergies Allergy/AdvReac Type Severity Reaction Status Date / Time diphenhydramine Allergy Severe Urticaria, Verified 03/24/25 15:52 [From Benadryl] severe anxiety, jittery prochlorperazine Allergy Severe Anaphylaxis Verified 03/24/25 15:52 [From Compazine] adhesive Allergy Intermediate Redness, Verified 03/24/25 15:52 swelling gluten Allergy Intermediate Hives, GI Verified 03/24/25 15:52 upset peanut Allergy Intermediate Itchy Verified 03/24/25 15:52 throat tree nut Allergy Intermediate Itchy Verified 03/24/25 15:52 throat pollen extracts Allergy Mild Itchy Verified 03/24/25 15:52 eyes, sneezing, congestion chlorhexidine Allergy Unknown Unknown Verified 03/24/25 15:52 iron [From Venofer] AdvReac Severe Abdominal Verified 03/24/25 15:52 Pain Latex, Natural Rubber AdvReac Intermediate Redness, Verified 03/24/25 15:52 itchy Home Medications Medication Instructions Recorded Confirmed Type famotidine 20 mg tablet 20 mg PO BID 04/09/21 03/24/25 History loratadine 10 mg tablet 10 mg PO QAM 04/09/21 03/24/25 History montelukast 10 mg tablet 10 mg PO HS 04/09/21 03/24/25 History (Singulair) ondansetron HCl 8 mg tablet 8 mg PO Q8 PRN Nausea 04/09/21 03/24/25 History linaclotide 145 mcg capsule 145 mcg PO QAM PRN Constipation 01/02/22 03/24/25 History (Candido) cholecalciferol (vitamin D3) 1,250 1,250 mcg PO WK 01/13/23 03/24/25 History mcg (50,000 unit) capsule granisetron HCl 1 mg tablet 1 mg PO Q12H 09/23/23 03/24/25 History hydroxyzine HCl 10 mg tablet 50 mg PO QID PRN Anxiety 09/23/23 03/24/25 History olanzapine 2.5 mg tablet 2.5 mg PO DAILY 12/17/23 03/24/25 History baclofen 10 mg tablet 10 mg PO BID 05/21/24 03/24/25 History cyanocobalamin (vitamin B-12) 1,000 mcg IM MONTHLY 05/21/24 03/24/25 History 1,000 mcg/mL injection solution duloxetine 20 mg capsule,delayed 20 mg PO DAILY 05/21/24 03/24/25 History release Patient History Medical History Anxiety Gastrointestinal dysmotility Reactive hypoglycemia dexcom present to left arm Anemia Neuropathy legs Gastroparesis History of COVID-19 02/2022, not hospitalized 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 Jejunostomy tube present placed October 2020 Surgical History History of removal of Port-a-Cath (05/21/24) Infusaport Removal - Left side(Left) - Alton Garcia DO, FACS History of myringotomy History of surgery (06/24/21) Removal of Right Tunneled Central Line in Internal Jugular Catheter H/O wisdom tooth extraction H/O wrist surgery right S/P knee surgery Left Family History Other Adopted Social History Smoking Status: Never smoker Second Hand Exposure: No; Do You Dip or Chew Tobacco: No; Hx Alcohol Use: No Hx Substance Use: No Preferred Language: [place] Islander Communication Ability: Effective Diet Aid Required: No Beliefs That Will Affect Care: None Current Living Situation: Parent Current Living Situation Comment: Lives w/ family at home Other Information That Helps Us Care for You: No Feels Safe at Home: Yes Safety Concerns: Feels Safe At This Time Assistive Devices: Contacts and Glasses Review of Systems Constitutional: denies fever, chills, sweats Respiratory: denies coughing, shortness of breath, wheezing Cardiovascular: Additional Comments: currently denies palpitations, chest pain, lower extremity edema Gastrointestinal: positive for nausea and abdominal pain (both chronic and unchanged), denies constipation, diarrhea Musculoskeletal: + EDS with hypermobility, no current devin nt or muscle pain Integumentary: + scarring from previous central lines a nd adhesives, no current rashes or new lesions Neurologic: positive for Headache, no dizziness, no numbness or tingling Hematologic / Lymphatic: no history of DVT, no easy bleeding or easy bruising Allergy / Immunological: multiple allergies (seasonal, food, medications) Physical Exam Constitutional: thin, lying in bed, in no distress, AA&O x 3 Eyes: PERRLA Neck: trachea midline no obvious collateral veins noted good range of motion Respiratory: CTAB, no wheezes, rales or rhonchi Cardiovascular: RRR, no murmurs noted no edema in lower extremities radial pulses +2 bilaterally Chest (Breasts): Additional Comments: symmetric right sided tunneled central line in place, with multiple scars noted along chest from previous central line/port sites, no erythema or active drainage noted from tunnel site, no tenderness to palpation along tunnel site. no obvious collateral vessels noted Gastrointestinal (Abdomen): flat, bowel sounds present, no tenderness to palpation. G tube in place, no erythema or drainage noted around stoma. Musculoskeletal: moves all extremities equally, no cyanosis or clubbing Neurologic: CN II-XII grossly intact Results & Data Vital Signs (Past 12 Hours) Vital Signs Temp Pulse Pulse Resp BP Pulse Ox Pulse Ox 03/25/25 07:44 36.7 C 84 18 95/63 L 98 03/25/25 05:50 74 03/25/25 03:11 36.3 C L 79 16 95/64 L 98 03/24/25 22:32 03/24/25 22:28 106 H 03/24/25 21:54 37.7 C H 96 H 18 109/78 96 03/24/25 21:54 96 O2 Del Method O2 Del Method 03/25/25 07:44 Room Air 03/25/25 05:50 03/25/25 03:11 Room Air 03/24/25 22:32 Room Air 03/24/25 22:28 03/24/25 21:54 Room Air 03/24/25 21:54 Room Air Laboratory Results 03/24/25 15:04 Aerobic Blood Culture - Preliminary Blood Gram negative bacilli Anaerobic Blood Culture - Preliminary Gram negative bacilli 03/24/25 15:20 Aerobic Blood Culture - Pending Blood Anaerobic Blood Culture - Pending 03/25/25 03/25/25 03/24/25 06:55 04:37 22:15 WBC 5.37 RBC 4.20 Hgb 11.9 L Hct 36.8 L MCV 87.6 MCH 28.3 MCHC 32.3 RDW Std Deviation 46.9 H RDW Coeff of Priscilla 14.6 H Plt Count 311 MPV 8.6 L Immature Gran % (Auto) 1.5 Neut % (Auto) 63.4 Lymph % (Auto) 26.8 [place] % (Auto) 6.7 Eos % (Auto) 0.9 Baso % (Auto) 0.7 Neut # (Auto) 3.40 Lymph # (Auto) 1.44 [place] # (Auto) 0.36 Eos # (Auto) 0.05 Baso # (Auto) 0.04 Immature Gran # (Auto) 0.08 ESR Sodium 141 Potassium 4.0 Chloride 110 H Carbon Dioxide 26 Anion Gap 5 BUN 8 Creatinine 0.68 Est Cr Clr Drug Dosing 90.1 eGFR 122.34 BUN/Creatinine Ratio 11.8 Glucose 81 POC Glucose 73 88 Lactate Calcium 8.4 L Phosphorus 3.9 Magnesium 2.2 Total Bilirubin 0.6 Direct Bilirubin AST 77 H ALT 90 H Alkaline Phosphatase 81 Troponin I High Sens C-Reactive Protein Total Protein 6.1 Albumin 3.4 Globulin 2.7 Albumin/Globulin Ratio 1.3 Triglycerides 212 H Procalcitonin Urine Color Urine Appearance Urine pH Ur Specific [place] Urine Protein Urine Glucose (UA) Urine Ketones Urine Blood Urine Nitrite Urine Bilirubin Urine Urobilinogen Ur Leukocyte Esterase Urine Comment Nasal Screen MRSA (PCR) Adenovirus (PCR) B. pertussis DNA (PCR) B.parapertussis DNA PCR C. pneumoniae DNA (PCR) Coronavirus OC43 (PCR) Coronavirus HKU1 (PCR) Coronavirus 229E (PCR) SARS-CoV-2 (PCR) Coronavirus NL63 (PCR) Enterobacterales (PCR) E. coli (PCR) Hep Bs Antigen Hepatitis C Antibody Human Metapneumovir PCR Influenza Type A (PCR) Influenza Type B (PCR) M. pneumoniae (PCR) Parainfluenza 1 (PCR) Parainfluenza 2 (PCR) Parainfluenza 3 (PCR) Parainfluenza 4 (PCR) RSV (PCR) Entero/Rhino (PCR) mcr-1 Colistin Res Gene PCR blaIMP Car res Gene PCR KPC-Carbap Res Gene PCR blaNDM Car Res Gene PCR OXA-48 Carbapenem Resis Gene (PCR) blaVIM Car Res Gene PCR CTX-M Gene Resistance (PCR) Bld Cult ID Panel PCR 03/24/25 03/24/25 03/24/25 20:52 17:54 16:40 WBC RBC Hgb Hct MCV MCH MCHC RDW Std Deviation RDW Coeff of Priscilla Plt Count MPV Immature Gran % (Auto) Neut % (Auto) Lymph % (Auto) [place] % (Auto) Eos % (Auto) Baso % (Auto) Neut # (Auto) Lymph # (Auto) [place] # (Auto) Eos # (Auto) Baso # (Auto) Immature Gran # (Auto) ESR Sodium Potassium Chloride Carbon Dioxide Anion Gap BUN Creatinine Est Cr Clr Drug Dosing eGFR BUN/Creatinine Ratio Glucose POC Glucose Lactate 1.6 2.1 H* Calcium Phosphorus Magnesium Total Bilirubin Direct Bilirubin AST ALT Alkaline Phosphatase Troponin I High Sens C-Reactive Protein Total Protein Albumin Globulin Albumin/Globulin Ratio Triglycerides Procalcitonin Urine Color Yellow Urine Appearance Clear Urine pH 6.5 Ur Specific [place] 1.012 Urine Protein Negative Urine Glucose (UA) Negative Urine Ketones Negative Urine Blood Negative Urine Nitrite Negative Urine Bilirubin Negative Urine Urobilinogen Negative Ur Leukocyte Esterase Negative Urine Comment Nasal Screen MRSA (PCR) Adenovirus (PCR) B. pertussis DNA (PCR) B.parapertussis DNA PCR C. pneumoniae DNA (PCR) Coronavirus OC43 (PCR) Coronavirus HKU1 (PCR) Coronavirus 229E (PCR) SARS-CoV-2 (PCR) Coronavirus NL63 (PCR) Enterobacterales (PCR) E. coli (PCR) Hep Bs Antigen Hepatitis C Antibody Human Metapneumovir PCR Influenza Type A (PCR) Influenza Type B (PCR) M. pneumoniae (PCR) Parainfluenza 1 (PCR) Parainfluenza 2 (PCR) Parainfluenza 3 (PCR) Parainfluenza 4 (PCR) RSV (PCR) Entero/Rhino (PCR) mcr-1 Colistin Res Gene PCR blaIMP Car res Gene PCR KPC-Carbap Res Gene PCR blaNDM Car Res Gene PCR OXA-48 Carbapenem Resis Gene (PCR) blaVIM Car Res Gene PCR CTX-M Gene Resistance (PCR) Bld Cult ID Panel PCR 03/24/25 03/24/25 15:37 15:04 WBC 10.51 RBC 4.45 Hgb 12.6 Hct 38.6 MCV 86.7 MCH 28.3 MCHC 32.6 RDW Std Deviation 45.3 RDW Coeff of Priscilla 14.3 Plt Count 398 MPV 8.8 L Immature Gran % (Auto) 1.3 Neut % (Auto) 80.5 Lymph % (Auto) 12.3 [place] % (Auto) 5.1 Eos % (Auto) 0.4 Baso % (Auto) 0.4 Neut # (Auto) 8.46 H Lymph # (Auto) 1.29 [place] # (Auto) 0.54 Eos # (Auto) 0.04 Baso # (Auto) 0.04 Immature Gran # (Auto) 0.14 ESR 27 H Sodium 136 Potassium 3.7 Chloride 101 Carbon Dioxide 25 Anion Gap 10 BUN 15 Creatinine 0.69 Est Cr Clr Drug Dosing 88.5 eGFR 121.91 BUN/Creatinine Ratio 21.7 H Glucose 110 H POC Glucose Lactate 2.4 H* Calcium 9.1 Phosphorus Magnesium 1.9 Total Bilirubin 0.6 Direct Bilirubin 0.1 AST 111 H ALT 79 H Alkaline Phosphatase 92 Troponin I High Sens 5.3 C-Reactive Protein 0.58 H Total Protein 7.3 Albumin 4.0 Globulin Albumin/Globulin Ratio Triglycerides Procalcitonin 0.51 H Urine Color Urine Appearance Urine pH Ur Specific [place] Urine Protein Urine Glucose (UA) Urine Ketones Urine Blood Urine Nitrite Urine Bilirubin Urine Urobilinogen Ur Leukocyte Esterase Urine Comment Nasal Screen MRSA (PCR) Negative Adenovirus (PCR) Not Detected B. pertussis DNA (PCR) Not Detected B.parapertussis DNA PCR Not Detected C. pneumoniae DNA (PCR) Not Detected Coronavirus OC43 (PCR) Not Detected Coronavirus HKU1 (PCR) Not Detected Coronavirus 229E (PCR) Not Detected SARS-CoV-2 (PCR) Not Detected Coronavirus NL63 (PCR) Not Detected Enterobacterales (PCR) DETECTED A E. coli (PCR) DETECTED A Hep Bs Antigen Negative Hepatitis C Antibody Negative Human Metapneumovir PCR Not Detected Influenza Type A (PCR) Not Detected Influenza Type B (PCR) Not Detected M. pneumoniae (PCR) Not Detected Parainfluenza 1 (PCR) Not Detected Parainfluenza 2 (PCR) Not Detected Parainfluenza 3 (PCR) Not Detected Parainfluenza 4 (PCR) Not Detected RSV (PCR) Not Detected Entero/Rhino (PCR) Not Detected mcr-1 [place]istin Res Gene PCR Not Detected blaIMP Car res Gene PCR Not Detected KPC-Carbap Res Gene PCR Not Detected blaNDM Car Res Gene PCR Not Detected OXA-48 Carbapenem Resis Gene (PCR) Not Detected blaVIM Car Res Gene PCR Not Detected CTX-M Gene Resistance (PCR) Not Detected Bld Cult ID Panel PCR See PCR Comment Diagnostic Findings Chest X-Ray 03/24/25 14:47 XR chest 1V portable CLINICAL HISTORY: Sepsis COMPARISON STUDY: 11/29/2024 FINDINGS: Stable right central catheter. Heart size and pulmonary vasculature are normal. No consolidation or pleural effusion. No pneumothorax. IMPRESSION: No pneumonia seen. ACT 112: Negative or not required by law. Electronically signed by: lAton Paula M.D. 03/24/2025 3:12 PM Medications Administered Home Medications Medication Instructions Recorded Confirmed Last Taken famotidine 20 mg tablet 20 mg PO BID 04/09/21 03/24/25 03/24/25 08:00 loratadine 10 mg tablet 10 mg PO QAM 04/09/21 03/24/25 03/24/25 montelukast 10 mg tablet 10 mg PO HS 04/09/21 03/24/25 03/23/25 (Singulair) ondansetron HCl 8 mg tablet 8 mg PO Q8 PRN Nausea 04/09/21 03/24/25 11/22/24 linaclotide 145 mcg capsule 145 mcg PO QAM PRN Constipation 01/02/22 03/24/25 11/22/24 (Linzess) cholecalciferol (vitamin D3) 1,250 1,250 mcg PO WK 01/13/23 03/24/25 03/23/25 mcg (50,000 unit) capsule granisetron HCl 1 mg tablet 1 mg PO Q12H 09/23/23 03/24/25 03/24/25 08:00 hydroxyzine HCl 10 mg tablet 50 mg PO QID PRN Anxiety 09/23/23 03/24/25 11/22/24 olanzapine 2.5 mg tablet 2.5 mg PO DAILY 12/17/23 03/24/25 03/24/25 baclofen 10 mg tablet 10 mg PO BID 05/21/24 03/24/25 03/24/25 08:00 cyanocobalamin (vitamin B-12) 1,000 mcg IM MONTHLY 05/21/24 03/24/25 11/22/24 1,000 mcg/mL injection solution duloxetine 20 mg capsule,delayed 20 mg PO DAILY 05/21/24 03/24/25 03/24/25 release Active Medications Generic Name Dose Route Start Last Admin Trade Name Justen PRN Reason Stop Dose Admin Baclofen 10 mg 03/24/25 21:00 03/25/25 09:38 Baclofen 10 Mg Tab PO 04/23/25 20:59 10 mg BID ZULY Administration Duloxetine HCl 20 mg 03/25/25 09:00 03/25/25 09:38 Duloxetine Hcl 20 Mg Cap PO 04/24/25 08:59 20 mg DAILY ZULY Administration Famotidine 20 mg 03/24/25 21:00 03/25/25 09:47 Famotidine 20 Mg Tab PO 04/23/25 20:59 20 mg BID ZULY Administration Heparin Sodium (Porcine) 5,000 units 03/24/25 21:54 03/25/25 09:42 Heparin Sod 5,000 Unit/0.5 Ml Vial SQ 04/23/25 21:53 Not Given Q12 ZULY Sodium Chloride 1,000 mls @ 80 mls/hr 03/24/25 19:30 03/25/25 09:47 Nss IV 03/27/25 19:29 80 mls/hr .[id number] ZULY Administration Piperacillin Sod/Tazobactam Sod 4.5 gm in 100 mls @ 25 mls/hr 03/24/25 23:00 03/25/25 06:25 Zosyn IV 03/26/25 21:53 25 mls/hr Q8H ZULY Administration Protocol Vancomycin HCl 750 mg/ Sodium 265 mls @ 200 mls/hr 03/25/25 01:00 03/25/25 09:40 Chloride IV 03/27/25 00:59 200 mls/hr Q8H ZULY Administration Loratadine 10 mg 03/25/25 09:00 03/25/25 09:38 Loratadine 10 Mg Tab PO 04/24/25 08:59 10 mg QAM ZULY Administration Montelukast Sodium 10 mg 03/24/25 21:00 03/24/25 23:19 Montelukast Sodium 10 Mg Tablet PO 04/23/25 20:59 10 mg HS ZULY Administration Olanzapine 2.5 mg 03/25/25 09:00 03/25/25 09:39 Olanzapine 2.5 Mg Tab PO 04/24/25 08:59 2.5 mg DAILY ZULY Administration PG Care Time/CCT Total # of Minutes Spent Total Time Spent with Patient: Total time spent is greater than 50% in coordination of care (as documented) at patient's floor/unit and/or counseling patient: [place] [address] IN/OBS CONSULT LVL 3,45M Patient Type New Medical Decision Making Moderate Complexity Diagnoses Bloodstream infection associated with central venous catheter, subsequent encounter T80.211D Encounter type: subsequent encounter Bacteremia due to Enterococcus R78.81; B95.2
[2025-03-25] MEDS: LORATADINE 10 MG TAB PO SCH (09:38)
[2025-03-25] MEDS: OLANZAPINE 2.5 MG TAB PO SCH (09:39)
[2025-03-25] MEDS: Nursing to Pharmacy Communication SCH (10:26)
--- NOTE | 2025-03-25 11:48 | Hospitalist Progress Note ---
Date of Service March 25, 2025 Assessment & Plan (1) Fever: (2) History of central line-associated bloodstream infection (CLABSI): (3) Severe protein-calorie malnutrition: (4) Gastrointestinal dysmotility: (5) On total parenteral nutrition (TPN): Plan Ms. Mccarthy is a 29-year-old female with PMHx significant for hypermobile Jaqui Danlos syndrome, POT, severe protein calorie malnutrition and GI dysmotility on chronic TPN therapy since 2020, chronic nausea, history of recurrent CLABSI, bile reflux gastritis, chronic pain syndrome, CESILIA, history of Helicobacter pylori infection and right ovarian cyst who presented to the ED due to fever. Several prior admissions for central line-associated bloodstream infections. Confinement under our service in May 2024 with central line-associated MSSA bacteremia s/p IV Ancef x 14d course. Most recent confinement under our service in November 2024 with central line-associated Staphylococcus epidermidis bacteremia s/p IV daptomycin x 14d course with retained line. Confinement at [facility] 12/24/24-01/03/25 with MSSA bacteremia secondary to infected CVC TPN line. CVC TPN line replaced - located on upper R chest wall. TTE: no evidence of endo carditis. S/p IV Ancef course completed on 01/09/25. 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 -S/p empiric IV vancomycin and Zosyn in ED. -UA and respiratory BioFire negative, chest xr unremarkable -blood culture returning with E. coli/enterobacter consistent with possible line infection -will need to remove line given 3rd line infection this year -likely exit site infection, patient does not want salvage therapy given significant history Plan: -vascular surgery consulted for line removal, appreciate recs -hold TPN for a few days given bacteremia -deescalate abx to ceftriaxone given culture sensitivity results, discussed with pharmacy -will recheck cultures to ensure clearance given -continue NS maintenance fluids, increase rate to 85ml/hr -encourage PO intake as tolerated -will discuss case with ID Severe protein calorie malnutrition Gastrointestinal dysmotility on chronic TPN therapy since 2020 -GI nutrition recommended changing pt's G-tube for a GJ tube with the hope of st arting enteral feedings during [facility] confinement in December. -GJ tube was placed by IR on 12/29/24 and exchanged on 01/03/25. -Tube feed initiation was not tolerated while inpatient secondary to nausea. TPN was continued while inpatient and tolerated using new CVC line. -Pt has attempted several tube feedings since December without success secondary to nausea. -Does take in some enteral nutrition, ex: ice cream, chicken. -Pt also with h/o recurrent malpositioning of GJ tube requiring multiple replacements/reintervention for placement positioning with both IR and GI. - underwent replacement of her GJ tube with Dr. Galaviz at [facility] on 02/25/25. -Since pt was not tolerating tube feeds through her GJ tube, she underwent removal of this on 03/10/25 and had a G-tube placed to allow for gastric venting. -Pt not doing any tube feeds MAIL OPENER. Plan: -Current TPN Regimen: 2.8 L TPN x14 hours 6 days per week with 72 gm aa, 200 gm dextrose (lipid days) vs 250 gm dextrose (non-lipid days), and 53 gm lipid 2x/week (1138 Kcals vs 1498 Kcals on lipid days 2x/week) -1L fluids per week on off day (rotates - "mental health day") -Provides 24-32 Kcals/kg and 1.6 gm protein/kg -licensing coordinator consult, appreciate recs -hold TPN Recent LLL aspiration pneumonitis/PNA -chest xray unremarkable Elevated LFTs -AST 111, ALT 79 - both WNL on DC from last confinement under our service. -No Tylenol use MAIL OPENER as it gives pt a HARRISON. -likely 2/2 TPN Plan: -Check routine acute hepatitis panel for completeness. -GI consulted, appreciate recs Chronic pain syndrome -Follows with pain management through [facility]. -Continue Baclofen and Cymbalta. Chronic nausea -Continue granisetron and Zyprexa. -PRN IV Zofran for refractory N/V. Seasonal allergies -Continue Singular and Claritin. I spent a total of 55 minutes in direct patient care, including [id number] time with the patient and/or family, reviewing medical records, ordering and reviewing diagnostic tests, and coordinating care with other healthcare providers. This time includes: history taking, physical examination, medical decision making, counseling, ECG interpretation, imaging interpretation, lab interpretation, orders, and education, excluding time spent in the performance of separately billed services. Admission and Anticipated Discharge Date Admission Date: March 24, 2025 Subjective Patient seen and examined at bedside. Patient feels well today. Pleasant demea nor. Review of Systems Review of Systems: CONSTITUTIONAL: fevers EYES: Patient denies any visual symptoms. EARS, NOSE, AND THROAT: No difficulties with hearing. No symptoms of rhinitis or sore throat. CARDIOVASCULAR: Patient denies chest pains, palpitations, orthopnea and paroxysmal nocturnal dyspnea. RESPIRATORY: No dyspnea on exertion, no wheezing or cough. GI: No nausea, vomiting, diarrhea, constipation, abdominal pain, hematochezia or melena. : No urinary hesitancy or dribbling. No nocturia or urinary frequency. No abnormal urethral discharge. MUSCULOSKELETAL: No myalgias or arthralgias. NEUROLOGIC: No chronic headaches, no seizures. Patient denies numbness, tingling or weakness. PSYCHIATRIC: Patient denies problems with mood disturbance. No problems with anxiety. ENDOCRINE: No excessive urination or excessive thirst. DERMATOLOGIC: Patient denies any rashes or skin changes. Physical Exam Physical Exam: Gen: A&O 3 NAD, cachexia noted HEENT: NCAT, EOMI, not icteric. External ears normal. No rhinorrhea. Moist mucous membranes. Neck: Supple, full range of motion, no observable masses, No meningeal sign. Lungs: No Respiratory distress. CV: RRR, no edema. Abdomen: Soft, nondistended, No rebound tenderness. MSK: No joint swelling, no redness. Skin: noted right Chao, mild erythema around entrance site Neuro: Normal Gait, Grossly intact. Psych: Appropriate for situation. Results & Data Results & Data Vital Signs (Past 12 Hours) Vital Signs Temp Pulse Pulse Resp BP Pulse Ox O2 Del Method 03/25/25 11:35 36.4 C L 81 16 90/59 L 96 Room Air 03/25/25 07:44 36.7 C 84 18 95/63 L 98 Room Air 03/25/25 05:50 74 03/25/25 03:11 36.3 C L 79 16 95/64 L 98 Room Air Laboratory Results -personally reviewed, elevated procal consistent with bacteremia, blood cultures positive for gram negative bacteremia Medications Administered Baclofen (Baclofen 10 Mg Tab) 10 mg PO BID ZULY Stop: 04/23/25 20:59 Last Admin: 03/25/25 09:38 Dose: 10 mg Documented By: Admin: 03/24/25 23:18 Dose: 10 mg Documented By: CHASE Duloxetine HCl (Duloxetine Hcl 20 Mg Cap) 20 mg PO DAILY ZULY Stop: 04/24/25 08:59 Last Admin: 03/25/25 09:38 Dose: 20 mg Documented By: ANGELA Famotidine (Famotidine 20 Mg Tab) 20 mg PO BID ZULY Stop: 04/23/25 20:59 Last Admin: 03/25/25 09:47 Dose: 20 mg Documented By: Admin: 03/24/25 23:18 Dose: 20 mg Documented By: CHASE Heparin Sodium (Porcine) (Heparin Sod 5,000 Unit/0.5 Ml Vial) 5,000 units SQ Q12 ZULY Stop: 04/23/25 21:53 Last Admin: 03/25/25 09:42 Dose: Not Given Documented By: Admin: 03/24/25 23:18 Dose: 5,000 units Documented By: CHASE Sodium Chloride (Nss) 1,000 mls @ 80 mls/hr IV .[id number] ZULY Stop: 03/27/25 19:29 Last Admin: 03/25/25 09:47 Dose: 80 mls/hr Documented By: Infusion: 03/25/25 09:47 Dose: Infused Documented By: Admin: 03/24/25 23:17 Dose: 80 mls/hr Documented By: CHASE Loratadine (Loratadine 10 Mg Tab) 10 mg PO QAM ZULY Stop: 04/24/25 08:59 Last Admin: 03/25/25 09:38 Dose: 10 mg Documented By: ANGELA Montelukast Sodium (Montelukast Sodium 10 Mg Tablet) 10 mg PO HS ZULY Stop: 04/23/25 20:59 Last Admin: 03/24/25 23:19 Dose: 10 mg Documented By: CHASE Olanzapine (Olanzapine 2.5 Mg Tab) 2.5 mg PO DAILY ZULY Stop: 04/24/25 08:59 Last Admin: 03/25/25 09:39 Dose: 2.5 mg Documented By: ANGELA (1) Fever Fever type: due to other condition Qualified Code(s): R50.81 - Fever presenting with conditions classified elsewhere
--- NOTE | 2025-03-25 12:59 | History & Physical Bridge Note ---
Date of Service March 25, 2025 History & Physical Bridge Note Please see consult note from earlier today which contains a full history and physical examination. Plan for removal of Chao catheter today.
[2025-03-25] MEDS: MIDAZOLAM HCL 1 MG/ML 2ML VIAL ONE (13:15)
[2025-03-25] MEDS: LIDOCAINE 1% LOCAL 20 ML VIAL ONE (13:30)
--- NOTE | 2025-03-25 13:33 | Post Operative Brief Note ---
Immediate Post Op Note Date of Surgery March 25, 2025 Pre & Post Diagnosis Operation Date: 03/25/25 09:20 Pre-Op Diagnosis: Infected Chao Catheter Post-Op Diagnosis: Infected [place] Catheter I identified the patient and participated in the time-out.: Yes Procedure Operation Date: 03/25/25 09:20 Actual Procedures p Removal of Tunneled Central Line Catheter, Moderate Sedation 13:15-(Right) - Ismael Espana MD Surgeon Ismael Espana MD Ediphone Operator Humera Whitman PA-C Estimated Blood Loss 2 Findings Consistent with Post-Op Diagnosis Specimens catheter tip for culture Anesthesia Type RN Sedation Complications none Disposition Accompanied Patient To Recovery: No
[2025-03-25] MEDS: cefTRIAXone SODIUM 2,000 MG/50 ML BAG IV SCH (13:58)
--- NOTE | 2025-03-25 14:05 | Operative Report ---
PG Post Operative Report Pre & Post Diagnosis Operation Date: 03/25/25 09:20 Pre-Op Diagnosis: Infected Chao Catheter Post-Op Diagnosis: Infected [place]aman Catheter I identified the patient and participated in the time-out.: Yes Procedure Operation Date: 03/25/25 09:20 Actual Procedures p Removal of Tunneled Central Line Catheter, Moderate Sedation 13:15- 13:35(Right) - Ismael Espana MD CPT [id number] Surgeon Ismael Espana MD Cargo Broker Humera Whitman PA-C Estimated Blood Loss 2 Findings Consistent with Post-Op Diagnosis Specimens catheter tip for culture Anesthesia Type RN Sedation Complications none Disposition Accompanied Patient To Recovery: No Indications 29-year-old female with gastric dysmotility and need for chronic parenteral nutrition. Presents with erythema at tunneled central line exit site and E. coli in the blood. Removal of central venous catheter has been requested. Risk goals and alternatives were discussed with patient understood and gave consent to proceed. Description of Procedure A timeout was performed and the patient was identified and procedure verified. Conscious sedation was administered under my direction. The right neck and ch est were prepped and draped in usual sterile fashion. The patient had a documented allergy to chlorhexidine but she said she has tolerated this quite well and requested chlorhexidine to be used as her prep. The suture was removed. The catheter was freed up from the surrounding tissues above the cuff and removed without incident intact. Pressure was held over the venous access site to achieve hemostasis. The exit site was covered with gauze and a Tegaderm. The tip of the catheter was sent for microbiologic analysis. Sedation start 1315, and 1335. 1 mg Versed, 50 mcg fentanyl. I attest to the content of the Intraoperative Record and any orders documented therein. Any exceptions are noted below.
--- NOTE | 2025-03-25 16:48 | Ultrasound Report ---
Clinical history: Elevated liver enzymes Technique: Sonography was performed of the right upper quadrant of the abdomen Findings: There is no sign of cirrhosis or significant fatty infiltration. No definite liver mass is seen. The main portal vein is patent There is no evidence of cholelithiasis or cholecystitis. The gallbladder has a normal wall thickness and no adjacent fluid is seen. No definite sonographic Davenport sign was detected. There is no intrahepatic or extrahepatic bile duct dilatation. The common bile duct measures 3 mm The right kidney measures 11.4 cm in length. There is no hydronephrosis. No definite renal calculus or mass is seen The visualized pancreas, aorta, and IVC appear unremarkable. No ascites is seen Impression: Unremarkable right upper quadrant abdominal sonogram Electronically signed by Deejay Bashir 03-25-2025 4:47 PM
--- NOTE | 2025-03-26 05:32 | Electrocardiogram Report ---
Test Reason : Blood Pressure : */* mmHG Vent. Rate : 141 BPM Atrial Rate : 141 BPM P-R Int : 124 ms QRS Dur : 70 ms QT Int : 298 ms P-R-T Axes : 61 64 10 degrees QTcB Int : 456 ms Sinus tachycardia Nonspecific T wave abnormality When compared with ECG of 29-Nov-2024 10:43, Vent. rate has increased by 51 bpm Confirmed by Rocco Ayers ([id number]) on 03/26/2025 5:32:40 AM Referred By: Confirmed By: Rocco Ayers
[2025-03-26 07:38] LABS: Anion Gap 7.0 (3-11); Blood Urea Nitrogen 6.0 mg/dl (6-23); Calcium 8.6 mg/dl (8.6-10.3); Carbon Dioxide 24.0 mmol/L (21-32); Chloride 107.0 mmol/L (98-107); Creatinine Clr Calc Pharmacy 102.9 ml/min; Glucose 72.0 mg/dl (70-99(Fasting)); Magnesium 2.1 mg/dl (1.7-2.4); Potassium 4.1 mmol/L (3.5-5.1); Sodium 138.0 mmol/L (136-145)
--- NOTE | 2025-03-26 07:52 | Vascular Surgery Progress Note ---
Date of Service March 26, 2025 Assessment & Plan (1) Infection of venous access port: Plan: No issues s/p removal of right IJ tunneled central venous line. If she is still in patient next week can place new tunneled line. Will need special order silicone line. Admission and Anticipated Discharge Date Admission Date: March 24, 2025 Subjective No reported problems. Physical Exam Physical Exam: Exit site from prior catheter - dressing intact. No hematoma Results & Data Vital Signs (Past 12 Hours) Vital Signs Temp Pulse Pulse Resp BP Pulse Ox O2 Del Method 03/26/25 07:46 67 03/26/25 07:15 36.6 C 89 20 100/61 98 Room Air 03/26/25 04:16 36.5 C 81 20 100/68 97 Room Air 03/26/25 00:22 36.8 C 97 H 20 96/63 L 97 Room Air 03/25/25 22:59 87 03/25/25 20:33 36.5 C 86 20 99/67 L 97 Room Air PG Care Time/CCT Total # of Minutes Spent Total Time Spent with Patient: Total time spent is greater than 50% in coordination of care (as documented) at patient's floor/unit and/or counseling patient: (1) Infection of venous access port Encounter type: initial encounter Qualified Code(s): T80.219A - Unspecified infection due to central venous catheter, initial encounter
[2025-03-26 11:32] LABS: Hepatitis A Antibody IgM NON-REACTIVE (NON-REACTIVE); Hepatitis B Core Antibody IgM NON-REACTIVE (NON-REACTIVE)
--- NOTE | 2025-03-26 13:09 | Hospitalist Progress Note ---
Date of Service March 26, 2025 Assessment & Plan (1) Fever: (2) History of central line-associated bloodstream infection (CLABSI): (3) Severe protein-calorie malnutrition: (4) Gastrointestinal dysmotility: (5) On total parenteral nutrition (TPN): Plan Ms. Mccarthy is a 29-year-old female with PMHx significant for hypermobile Jaqui Danlos syndrome, POT, severe protein calorie malnutrition and GI dysmotility on chronic TPN therapy since 2020, chronic nausea, history of recurrent CLABSI, bile reflux gastritis, chronic pain syndrome, CESILIA, history of Helicobacter pylori infection and right ovarian cyst who presented to the ED due to fever. Several prior admissions for central line-associated bloodstream infections. Confinement under our service in May 2024 with central line-associated MSSA bacteremia s/p IV Ancef x 14d course. Most recent confinement under our service in November 2024 with central line-associated Staphylococcus epidermidis bacteremia s/p IV daptomycin x 14d course with retained line. Confinement at [facility] 12/24/24-01/03/25 with MSSA bacteremia secondary to infected CVC TPN line. CVC TPN line replaced - located on upper R chest wall. TTE: no evidence of endo carditis. S/p IV Ancef course completed on 01/09/25. 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 -S/p empiric IV vancomycin and Zosyn in ED. -UA and respiratory BioFire negative, chest xr unremarkable -blood culture returning with E. coli/enterobacter consistent with possible line infection -will need to remove line given 3rd line infection this year -likely exit site infection, patient does not want salvage therapy given significant history -catheter removal 03/26 Plan: -vascular surgery consulted, appreciate recs -repeat blood cultures -hold TPN for a few days given bacteremia, will restart if prelim cultures ne gative -continue ceftriaxone, will need 7 day course of abx -will recheck cultures to ensure clearance given -continue NS maintenance fluids, increase rate to 85ml/hr -encourage PO intake as tolerated -case discussed with ID -will replace line with negative prelim cultures, hopefully Friday Severe protein calorie malnutrition Gastrointestinal dysmotility on chronic TPN therapy since 2020 -GI nutrition recommended changing pt's G-tube for a GJ tube with the hope of starting enteral feedings during [facility] confinement in December. -GJ tube was placed by IR on 12/29/24 and exchanged on 01/03/25. -Tube feed initiation was not tolerated while inpatient secondary to nausea. TPN was continued while inpatient and tolerated using new CVC line. -Pt has attempted several tube feedings since December without success secondary to nausea. -Does take in some enteral nutrition, ex: ice cream, chicken. -Pt also with h/o recurrent malpositioning of GJ tube requiring multiple replacements/reintervention for placement positioning with both IR and GI. - underwent replacement of her GJ tube with Dr. Galaviz at [facility] on 02/25/25. -Since pt was not tolerating tube feeds through her GJ tube, she underwent removal of this on 03/10/25 and had a G-tube placed to allow for gastric venting. Plan: -Current TPN Regimen: 2.8 L TPN x14 hours 6 days per week with 72 gm aa, 200 gm dextrose (lipid days) vs 250 gm dextrose (non-lipid days), and 53 gm lipid 2x/week (1138 Kcals vs 1498 Kcals on lipid days 2x/week) -1L fluids per week on off day (rotates - "mental health day") -Provides 24-32 Kcals/kg and 1.6 gm protein/kg -tie inspector consult, appreciate recs -hold TPN until prelim cultures negative Recent LLL aspiration pneumonitis/PNA -chest xray unremarkable Elevated LFTs -AST 111, ALT 79 - both WNL on DC from last confinement under our service. 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 -likely 2/2 TPN Plan: -Check routine acute hepatitis panel for completeness. -GI consulted, appreciate recs Chronic pain syndrome -Follows with pain management through [facility]. -Continue Baclofen and Cymbalta. Chronic nausea -Continue granisetron and Zyprexa. -PRN IV Zofran for refractory N/V. Seasonal allergies -Continue Singular and Claritin. I spent a total of 40 minutes in direct patient care, including [id number] time with the patient and/or family, reviewing medical records, ordering and reviewing diagnostic tests, and coordinating care with other healthcare providers. This time includes: history taking, physical examination, medical decision making, counseling, ECG interpretation, imaging interpretation, lab interpretation, orders, and education, excluding time spent in the performance of separately billed services. Admission and Anticipated Discharge Date Admission Date: March 24, 2025 Subjective Patient seen and examined at bedside. Patient doing well today, no concerns at this time. Review of Systems Review of Systems: CONSTITUTIONAL: fatigue EYES: Patient denies any visual symptoms. EARS, NOSE, AND THROAT: No difficulties with hearing. No symptoms of rhinitis or sore throat. CARDIOVASCULAR: Patient denies chest pains, palpitations, orthopnea and paroxysmal nocturnal dyspnea. RESPIRATORY: No dyspnea on exertion, no wheezing or cough. GI: No nausea, vomiting, diarrhea, constipation, abdominal pain, hematochezia or melena. : No urinary hesitancy or dribbling. No nocturia or urinary frequency. No abnormal urethral discharge. MUSCULOSKELETAL: No myalgias or arthralgias. NEUROLOGIC: No chronic headaches, no seizures. Patient denies numbness, tingling or weakness. PSYCHIATRIC: Patient denies problems with mood disturbance. No problems with anxiety. ENDOCRINE: No excessive urination or excessive thirst. DERMATOLOGIC: Patient denies any rashes or skin changes. Physical Exam Physical Exam: Gen: A&O 3 NAD, cachexia noted HEENT: NCAT, EOMI, not icteric. External ears normal. No rhinorrhea. Moist mucous membranes. Neck: Supple, full range of motion, no observable masses, No meningeal sign. Lungs: No Respiratory distress. CV: RRR, no edema. Abdomen: Soft, nondistended, No rebound tenderness. MSK: No joint swelling, no redness. Skin: noted removal of Chao Neuro: Normal Gait, Grossly intact. Psych: Appropriate for situation. Results & Data Results & Data Vital Signs (Past 12 Hours) Vital Signs Temp Pulse Pulse Resp BP Pulse Ox O2 Del Method 03/26/25 07:46 67 03/26/25 07:15 36.6 C 89 20 100/61 98 Room Air 03/26/25 04:16 36.5 C 81 20 100/68 97 Room Air Laboratory Results -personally reviewed, creatinine at baseline, negative screen Medications Administered Baclofen (Baclofen 10 Mg Tab) 10 mg PO BID ZULY Stop: 04/23/25 20:59 Last Admin: 03/26/25 09:40 Dose: 10 mg Documented By: Admin: 03/25/25 20:23 Dose: 10 mg Documented By: Admin: 03/25/25 09:38 Dose: 10 mg Documented By: Admin: 03/24/25 23:18 Dose: 10 mg Documented By: CHASE Duloxetine HCl (Duloxetine Hcl 20 Mg Cap) 20 mg PO DAILY ZULY Stop: 04/24/25 08:59 Last Admin: 03/26/25 09:40 Dose: 20 mg Documented By: Admin: 03/25/25 09:38 Dose: 20 mg Documented By: ANGELA Famotidine (Famotidine 20 Mg Tab) 20 mg PO BID ZULY Stop: 04/23/25 20:59 Last Admin: 03/26/25 09:40 Dose: 20 mg Documented By: Admin: 03/25/25 20:23 Dose: 20 mg Documented By: Admin: 03/25/25 09:47 Dose: 20 mg Documented By: Admin: 03/24/25 23:18 Dose: 20 mg Documented By: CHASE Heparin Sodium (Porcine) (Heparin Sod 5,000 Unit/0.5 Ml Vial) 5,000 units SQ Q12 ZULY Stop: 04/23/25 21:53 Last Admin: 03/26/25 09:40 Dose: 5,000 units Documented By: Admin: 03/25/25 20:23 Dose: 5,000 units Documented By: Admin: 03/25/25 09:42 Dose: Not Given Documented By: SCHOOL BUS DRIVER/TEACHER ASSISTANT Admin: 03/24/25 23:18 Dose: 5,000 units Documented By: CHASE Sodium Chloride (Nss) 1,000 mls @ 85 mls/hr IV .[id number] ZULY Stop: 03/27/25 19:29 Last Admin: 03/26/25 09:40 Dose: 85 mls/hr Documented By: Infusion: 03/26/25 09:40 Dose: Infused Documented By: Admin: 03/25/25 22:59 Dose: 85 mls/hr Documented By: Infusion: 03/25/25 22:58 Dose: Infused Documented By: Infusion: 03/25/25 13:48 Dose: 85 mls/hr Documented By: Admin: 03/25/25 09:47 Dose: 80 mls/hr Documented By: Infusion: 03/25/25 09:47 Dose: Infused Documented By: Admin: 03/24/25 23:17 Dose: 80 mls/hr Documented By: CHASE Ceftriaxone Sodium (Rocephin) 2,000 mg in 50 mls @ 100 mls/hr IV DAILY ZULY Stop: 04/08/25 10:59 Last Infusion: 03/26/25 10:26 Dose: Infused Documented By: Admin: 03/26/25 09:40 Dose: 100 mls/hr Documented By: Infusion: 03/25/25 14:33 Dose: Infused Documented By: Admin: 03/25/25 13:58 Dose: 100 mls/hr Documented By: ANGELA Loratadine (Loratadine 10 Mg Tab) 10 mg PO QAM ZULY Stop: 04/24/25 08:59 Last Admin: 03/26/25 09:40 Dose: 10 mg Documented By: Admin: 03/25/25 09:38 Dose: 10 mg Documented By: ANGELA Montelukast Sodium (Montelukast Sodium 10 Mg Tablet) 10 mg PO HS ZULY Stop: 04/23/25 20:59 Last Admin: 03/25/25 20:23 Dose: 10 mg Documented By: Admin: 03/24/25 23:19 Dose: 10 mg Documented By: CHASE Olanzapine (Olanzapine 2.5 Mg Tab) 2.5 mg PO DAILY ZULY Stop: 04/24/25 08:59 Last Admin: 03/26/25 09:41 Dose: 2.5 mg Documented By: Admin: 03/25/25 09:39 Dose: 2.5 mg Documented By: ANGELA (1) Fever Fever type: due to other condition Qualified Code(s): R50.81 - Fever presenting with conditions classified elsewhere
[2025-03-26] MEDS: ONDANSETRON INJ 2 MG/ML 2 ML VIAL IV PRN (14:19)
--- NOTE | 2025-03-26 15:53 | XCELERA ---
[id number] [id number]
[2025-03-27 06:25] LABS: Anion Gap 5.0 (3-11); Blood Urea Nitrogen 6.0 mg/dl (6-23); Calcium 8.3 mg/dl (8.6-10.3); Carbon Dioxide 24.0 mmol/L (21-32); Chloride 111.0 mmol/L (98-107); Creatinine Clr Calc Pharmacy 93.4 ml/min; Glucose 98.0 mg/dl (70-99(Fasting)); Magnesium 2.0 mg/dl (1.7-2.4); Potassium 3.9 mmol/L (3.5-5.1); Sodium 140.0 mmol/L (136-145)
[2025-03-27] MEDS: LACTATED RINGER'S 1,000 ML IV SCH (08:33)
--- NOTE | 2025-03-27 13:22 | Hospitalist Progress Note ---
Date of Service March 27, 2025 Assessment & Plan (1) Fever: (2) History of central line-associated bloodstream infection (CLABSI): (3) Severe protein-calorie malnutrition: (4) Gastrointestinal dysmotility: (5) On total parenteral nutrition (TPN): Plan Ms. Mccarthy is a 29-year-old female with PMHx significant for hypermobile Jaqui Danlos syndrome, POT, severe protein calorie malnutrition and GI dysmotility on chronic TPN therapy since 2020, chronic nausea, history of recurrent CLABSI, bile reflux gastritis, chronic pain syndrome, CESILIA, history of Helicobacter pylori infection and right ovarian cyst who presented to the ED due to fever. Several prior admissions for central line-associated bloodstream infections. Confinement under our service in May 2024 with central line-associated MSSA bacteremia s/p IV Ancef x 14d course. Most recent confinement under our service in November 2024 with central line-associated Staphylococcus epidermidis bacteremia s/p IV daptomycin x 14d course with retained line. Confinement at [facility] 12/24/24-01/03/25 with MSSA bacteremia secondary to infected CVC TPN line. CVC TPN line replaced - located on upper R chest wall. TTE: no evidence of endo carditis. S/p IV Ancef course completed on 01/09/25. Gram Negative Bacteremia Sepsis History of recurrent CLABSI with CVC line in R upper chest wall POA -Fever of 101F [employer] tachycardic in the 110s to 150s and elevated lactic acid c/f possible sepsis. -blood culture returning with E. coli/enterobacter consistent with possible line infection -will need to remove line given 3rd line infection this year -likely exit site infection, patient does not want salvage therapy given significant history -catheter removal 03/26, repeat cultures prelim negative Plan: -vascular surgery consulted, appreciate recs -will discuss with IR/vascular surgery about placing tunneled dialysis catheter again on Friday -restart PPN today -continue ceftriaxone, will need 7 day course of abx -will recheck cultures to ensure clearance given -case discussed with ID Severe protein calorie malnutrition Gastrointestinal dysmotility on chronic TPN therapy since 2020 -GI nutrition recommended changing pt's G-tube for a GJ tube with the hope of starting enteral feedings during [facility] confinement in December. -GJ tube was placed by IR on 12/29/24 and exchanged on 01/03/25. -Tube feed initiation was not tolerated while inpatient secondary to nausea. TPN was continued while inpatient and tolerated using new CVC line. -Pt has attempted several tube feedings since December without success secondary to nausea. -Does take in some enteral nutrition, ex: ice cream, chicken. -Pt also with h/o recurrent malpositioning of GJ tube requiring multiple replacements/reintervention for placement positioning with both IR and GI. - underwent replacement of her GJ tube with Dr. Galaviz at [facility] on 02/25/25. -Since pt was not tolerating tube feeds through her GJ tube, she underwent removal of this on 03/10/25 and had a G-tube placed to allow for gastric venting. Plan: -Current TPN Regimen: 2.8 L TPN x14 hours 6 days per week with 72 gm aa, 200 gm dextrose (lipid days) vs 250 gm dextrose (non-lipid days), and 53 gm lipid 2x/week (1138 Kcals vs 1498 Kcals on lipid days 2x/week) -1L fluids per week on off day (rotates - "mental health day") -Provides 24-32 Kcals/kg and 1.6 gm protein/kg -fine artist consult, appreciate recs Recent LLL aspiration pneumonitis/PNA -chest xray unremarkable Elevated LFTs -AST 111, ALT 79 - both WNL on DC from last confinement under our service. -likely 2/2 TPN Plan: -Check routine acute hepatitis panel for completeness. -GI consulted, appreciate recs Chronic pain syndrome -Follows with pain management through [facility]. -Continue Baclofen and Cymbalta. Chronic nausea -Continue granisetron and Zyprexa. -PRN IV Zofran for refractory N/V. Seasonal allergies -Continue Singular and Claritin. I spent a total of 50 minutes in direct patient care, including [id number] time with the patient and/or family, reviewing medical records, ordering and reviewing diagnostic tests, and coordinating care with other healthcare providers. This time includes: history taking, physical examination, medical decision making, counseling, ECG interpretation, imaging interpretation, lab interpretation, orders, and education, excluding time spent in the performance of separately billed services. Admission and Anticipated Discharge Date Admission Date: March 24, 2025 Subjective Patient seen and examined at bedside. Patient doing well today. Discussed restarting PPN today once repeat cultures come back prelim negative. Review of Systems Review of Systems: CONSTITUTIONAL: WNL EYES: Patient denies any visual symptoms. EARS, NOSE, AND THROAT: No difficulties with hearing. No symptoms of rhinitis or sore throat. CARDIOVASCULAR: Patient denies chest pains, palpitations, orthopnea and paroxysmal nocturnal dyspnea. RESPIRATORY: No dyspnea on exertion, no wheezing or cough. GI: No nausea, vomiting, diarrhea, constipation, abdominal pain, hematochezia or melena. : No urinary hesitancy or dribbling. No nocturia or urinary frequency. No abnormal urethral discharge. MUSCULOSKELETAL: No myalgias or arthralgias. NEUROLOGIC: No chronic headaches, no seizures. Patient denies numbness, tingling or weakness. PSYCHIATRIC: Patient denies problems with mood disturbance. No problems with anxiety. ENDOCRINE: No excessive urination or excessive thirst. DERMATOLOGIC: Patient denies any rashes or skin changes. Physical Exam Physical Exam: Gen: A&O 3 NAD, cachexia noted HEENT: NCAT, EOMI, not icteric. External ears normal. No rhinorrhea. Moist mucous membranes. Neck: Supple, full range of motion, no observable masses, No meningeal sign. Lungs: No Respiratory distress. CV: RRR, no edema. Abdomen: Soft, nondistended, No rebound tenderness. MSK: No joint swelling, no redness. Skin: noted removal of Chao Neuro: Normal Gait, Grossly intact. Psych: Appropriate for situation. Results & Data Results & Data Vital Signs (Past 12 Hours) Vital Signs Temp Pulse Resp BP Pulse Ox O2 Del Method 03/27/25 07:32 36.6 C 75 16 93/62 L 98 Room Air Laboratory Results -personally reviewed, creatinine at baseline Medications Administered Baclofen (Baclofen 10 Mg Tab) 10 mg PO BID [facility] Stop: 04/23/25 20:59 Last Admin: 03/27/25 09:04 Dose: 10 mg Documented By: Admin: 03/26/25 21:21 Dose: 10 mg Documented By: Admin: 03/26/25 09:40 Dose: 10 mg Documented By: Admin: 03/25/25 20:23 Dose: 10 mg Documented By: Admin: 03/25/25 09:38 Dose: 10 mg Documented By: Admin: 03/24/25 23:18 Dose: 10 mg Documented By: CHASE Duloxetine HCl (Duloxetine Hcl 20 Mg Cap) 20 mg PO DAILY ZULY Stop: 04/24/25 08:59 Last Admin: 03/27/25 09:04 Dose: 20 mg Documented By: Admin: 03/26/25 09:40 Dose: 20 mg Documented By: Admin: 03/25/25 09:38 Dose: 20 mg Documented By: ANGELA Famotidine (Famotidine 20 Mg Tab) 20 mg PO BID ZULY Stop: 04/23/25 20:59 Last Admin: 03/27/25 09:04 Dose: 20 mg Documented By: Admin: 03/26/25 21:21 Dose: 20 mg Documented By: Admin: 03/26/25 09:40 Dose: 20 mg Documented By: Admin: 03/25/25 20:23 Dose: 20 mg Documented By: Admin: 03/25/25 09:47 Dose: 20 mg Documented By: Admin: 03/24/25 23:18 Dose: 20 mg Documented By: CHASE Heparin Sodium (Porcine) (Heparin Sod 5,000 Unit/0.5 Ml Vial) 5,000 units SQ Q12 ZULY Stop: 04/23/25 21:53 Last Admin: 03/27/25 09:04 Dose: 5,000 units Documented By: Admin: 03/26/25 21:21 Dose: 5,000 units Documented By: EGChriss Admin: 03/26/25 09:40 Dose: 5,000 units Documented By: Admin: 03/25/25 20:23 Dose: 5,000 units Documented By: Admin: 03/25/25 09:42 Dose: Not Given Documented By: Admin: 03/24/25 23:18 Dose: 5,000 units Documented By: CHASE Ceftriaxone Sodium (Rocephin) 2,000 mg in 50 mls @ 100 mls/hr IV DAILY ZULY Stop: 04/08/25 10:59 Last Infusion: 03/27/25 09:21 Dose: Infused Documented By: Admin: 03/27/25 08:39 Dose: 100 mls/hr Documented By: Infusion: 03/26/25 10:26 Dose: Infused Documented By: Admin: 03/26/25 09:40 Dose: 100 mls/hr Documented By: Infusion: 03/25/25 14:33 Dose: Infused Documented By: Admin: 03/25/25 13:58 Dose: 100 mls/hr Documented By: ANGELA Lactated Ringer's (Lr) 1,000 mls @ 85 mls/hr IV .[id number] ZULY Stop: 03/30/25 07:44 Last Admin: 03/27/25 08:33 Dose: 85 mls/hr Documented By: ROSA Loratadine (Loratadine 10 Mg Tab) 10 mg PO QAM ZULY Stop: 04/24/25 08:59 Last Admin: 03/27/25 09:04 Dose: 10 mg Documented By: Admin: 03/26/25 09:40 Dose: 10 mg Documented By: Admin: 03/25/25 09:38 Dose: 10 mg Documented By: ANGELA Montelukast Sodium (Montelukast Sodium 10 Mg Tablet) 10 mg PO HS ZULY Stop: 04/23/25 20:59 Last Admin: 03/26/25 22:04 Dose: 10 mg Documented By: Admin: 03/25/25 20:23 Dose: 10 mg Documented By: Admin: 03/24/25 23:19 Dose: 10 mg Documented By: CHASE Olanzapine (Olanzapine 2.5 Mg Tab) 2.5 mg PO DAILY ZULY Stop: 04/24/25 08:59 Last Admin: 03/27/25 09:04 Dose: 2.5 mg Documented By: Admin: 03/26/25 09:41 Dose: 2.5 mg Documented By: Admin: 03/25/25 09:39 Dose: 2.5 mg Documented By: ANGELA Ondansetron HCl (Ondansetron Inj 2 Mg/Ml 2 Ml Vial) 4 mg IV Q4H PRN PRN Reason: Nausea Stop: 04/23/25 21:53 Last Admin: 03/26/25 14:19 Dose: 4 mg Documented By: ROSA (1) Fever Fever type: due to other condition Qualified Code(s): R50.81 - Fever presenting with conditions classified elsewhere
--- NOTE | 2025-03-27 14:07 | Pharmacy Report ---
Pharmacy Initial PN Consult Nt - Date of Service March 27, 2025 - Scope Pharmacy has been consulted on this 03/27 to manage parenteral nutrition orders and order appropriate labs. As part of the Nutrition Support Team Guidelines, pharmacy will work in conjunction with dietary when determining the patients caloric needs. - Subjective * The patient is a 29 year old Female admitted on 03/24/25 for FEVER. - Objective Vascular Access: * Patient currently has a peripheral line * Peripheral line was confirmed by IV Team to be acceptable for PPN use on 03/27 Height & Weight (Last Documented) Height 5 ft 3 in Weight 45.5 kg Diet Order(s) 03/24/25 Dinner Diet Intake & Ouput (24hrs) 03/26/25 03/27/25 03/28/25 06:59 06:59 06:59 Intake Total 2715.000 / 2715.000 1949.750 / 8237.600 6834 / 1050 Output Total 2 / 2 Balance 2715.000 / 2715.000 1947.750 / 0214.477 9405 / 1050 Selected Laboratory Results 03/27/25 05:49 Sodium 140 Potassium 3.9 Chloride 111 H Carbon Dioxide 24 Anion Gap 5 BUN 6 Creatinine 0.65 BUN/Creatinine Ratio 9.2 L Glucose 98 Calcium 8.3 L Phosphorus 3.[address] - Initial Nutrition Assessment Start: 03/25/25 11:40 Freq: Status: Active Protocol: Document 03/25/25 11:40 WN (Rec: 03/25/25 11:50 WN [id number]) - Assessment & Plan Assessment: * Appreciate dietitians recommendations for macronutrients. Patient with positive blood cultures, central line removed. Repeat blood cultures negative. Discussed with provider and they would like to start PPN for now. Plan is for new central line to be placed on Wednesday 03/28. Plan: * For Day #1 of PPN administration, the following will be ordered: * Macronutrients: * Amino Acids: 85 grams/day * Dextrose: 100 grams/day * Lipids: -- grams/day * Micronutrients: * Sodium phosphate: 12 mMol/day * Sodium chloride: 80 mEq/day * Sodium acetate: 80 mEq/day * Potassium acetate: 40 mEq/day * Magnesium sulfate: 8.12 mEq/day * Calcium gluconate: 9.3 mEq/day * Multivitamins: 10 mL/day * Trace elements: 1 mL/day * Thiamine: 100 mg/day * Folic Acid: 1 mg/day * Total volume of 2130 mL will be infused over 24 hours and will provide 680 kcal/day * Patient is on PPN which has a maximum mOsm/L of 900. Final osmolarity of current solution is 844.86 mOsm/L. * Labs will be ordered per PN protocol. * Pharmacy will follow and adjust PN orders on a daily basis. Thank you!
[2025-03-27] MEDS: [UNRECOGNIZED DRUG - OTHER] IV SCH (15:22)
[2025-03-27] MEDS: PERIPHERAL TPN IV SCH (15:22)
[2025-03-27] MEDS ORDERED: DEXTROSE 10% 1,000 ML IV PRN (16:00)
[2025-03-28 07:15] LABS: Anion Gap 5.0 (3-11); Blood Urea Nitrogen 10.0 mg/dl (6-23); Calcium 8.9 mg/dl (8.6-10.3); Carbon Dioxide 28.0 mmol/L (21-32); Chloride 108.0 mmol/L (98-107); Creatinine Clr Calc Pharmacy 108.4 ml/min; Glucose 102.0 mg/dl (70-99(Fasting)); Magnesium 2.0 mg/dl (1.7-2.4); Potassium 4.0 mmol/L (3.5-5.1); Sodium 141.0 mmol/L (136-145)
[2025-03-28 07:18] LABS: INR 0.9 (0.9-1.1); Prothrombin Time 10.3 Seconds (9.0-12.0)
--- NOTE | 2025-03-28 13:11 | Hospitalist Progress Note ---
Date of Service March 28, 2025 Assessment & Plan (1) Fever: (2) History of central line-associated bloodstream infection (CLABSI): (3) Severe protein-calorie malnutrition: (4) Gastrointestinal dysmotility: (5) On total parenteral nutrition (TPN): Plan Ms. Mccarthy is a 29-year-old female with PMHx significant for hypermobile Jaqui Danlos syndrome, POT, severe protein calorie malnutrition and GI dysmotility on chronic TPN therapy since 2020, chronic nausea, history of recurrent CLABSI, bile reflux gastritis, chronic pain syndrome, CESILIA, history of Helicobacter pylori infection and right ovarian cyst who presented to the ED due to fever. Several prior admissions for central line-associated bloodstream infections. Confinement under our service in May 2024 with central line-associated MSSA bacteremia s/p IV Ancef x 14d course. Most recent confinement under our service in November 2024 with central line-associated Staphylococcus epidermidis bacteremia s/p IV daptomycin x 14d course with retained line. Confinement at [facility] 12/24/24-01/03/25 with MSSA bacteremia secondary to infected CVC TPN line. CVC TPN line replaced - located on upper R chest wall. TTE: no evidence of endo carditis. S/p IV Ancef course completed on 01/09/25. Gram Negative Bacteremia Sepsis History of recurrent CLABSI with CVC line in R upper chest wall POA -Fever of 101F [employer] tachycardic in the 110s to 150s and elevated lactic acid c/f possible sepsis. -blood culture returning with E. coli/enterobacter consistent with possible line infection -will need to remove line given 3rd line infection this year -likely exit site infection, patient does not want salvage therapy given significant history -catheter removal 03/26, repeat cultures prelim negative Plan: -vascular surgery consulted, appreciate recs -awaiting tubing for Hickmann placement, likely arrival tomorrow, NPO after midnight, discussed with vascular surgery -continue PPN -continue ceftriaxone, will need 7 day course of abx -case discussed with ID Severe protein calorie malnutrition Gastrointestinal dysmotility on chronic TPN therapy since 2020 -GI nutrition recommended changing pt's G-tube for a GJ tube with the hope of starting enteral feedings during [facility] confinement in December. -GJ tube was placed by IR on 12/29/24 and exchanged on 01/03/25. -Tube feed initiation was not tolerated while inpatient secondary to nausea. TPN was continued while inpatient and tolerated using new CVC line. -Pt has attempted several tube feedings since December without success secondary to nausea. -Does take in some enteral nutrition, ex: ice cream, chicken. -Pt also with h/o recurrent malpositioning of GJ tube requiring multiple replac ements/reintervention for placement positioning with both IR and GI. - underwent replacement of her GJ tube with Dr. Galaviz at [facility] on 02/25/25. -Since pt was not tolerating tube feeds through her GJ tube, she underwent removal of this on 03/10/25 and had a G-tube placed to allow for gastric venting. Plan: -Current TPN Regimen: 2.8 L TPN x14 hours 6 days per week with 72 gm aa, 200 gm dextrose (lipid days) vs 250 gm dextrose (non-lipid days), and 53 gm lipid 2x/week (1138 Kcals vs 1498 Kcals on lipid days 2x/week) -1L fluids per week on off day (rotates - "mental health day") -Provides 24-32 Kcals/kg and 1.6 gm protein/kg -compensation associate consult, appreciate recs Recent LLL aspiration pneumonitis/PNA -chest xray unremarkable Elevated LFTs -AST 111, ALT 79 - both WNL on DC from last confinement under our service. -likely 2/2 TPN -GI consulted, appreciate recs Chronic pain syndrome -Follows with pain management through [facility]. -Continue Baclofen and Cymbalta. Chronic nausea -Continue granisetron and Zyprexa. -PRN IV Zofran for refractory N/V. Seasonal allergies -Continue Singular and Claritin. I spent a total of 40 minutes in direct patient care, including [id number] time with the patient and/or family, reviewing medical records, ordering and reviewing diagnostic tests, and coordinating care with other healthcare providers. This time includes: history taking, physical examination, medical decision making, counseling, ECG interpretation, imaging interpretation, lab interpretation, orders, and education, excluding time spent in the performance of separately billed services. Admission and Anticipated Discharge Date Admission Date: March 24, 2025 Subjective Patient seen and examined at bedside. Patient doing well today, awaiting tubing arrival for placement of Chao hopefully tomorrow before discharge. Review of Systems Review of Systems: CONSTITUTIONAL: WNL EYES: Patient denies any visual symptoms. EARS, NOSE, AND THROAT: No difficulties with hearing. No symptoms of rhinitis or sore throat. CARDIOVASCULAR: Patient denies chest pains, palpitations, orthopnea and paroxysmal nocturnal dyspnea. RESPIRATORY: No dyspnea on exertion, no wheezing or cough. GI: No nausea, vomiting, diarrhea, constipation, abdominal pain, hematochezia or melena. : No urinary hesitancy or dribbling. No nocturia or urinary frequency. No abnormal urethral discharge. MUSCULOSKELETAL: No myalgias or arthralgias. NEUROLOGIC: No chronic headaches, no seizures. Patient denies numbness, tingling or weakness. PSYCHIATRIC: Patient denies problems with mood disturbance. No problems with anxiety. ENDOCRINE: No excessive urination or excessive thirst. DERMATOLOGIC: Patient denies any rashes or skin changes. Physical Exam Physical Exam: Gen: A&O 3 NAD, cachexia noted HEENT: NCAT, EOMI, not icteric. External ears normal. No rhinorrhea. Moist mucous membranes. Neck: Supple, full range of motion, no observable masses, No meningeal sign. Lungs: No Respiratory distress. CV: RRR, no edema. Abdomen: Soft, nondistended, No rebound tenderness. MSK: No joint swelling, no redness. Skin: noted removal of Chao Neuro: Normal Gait, Grossly intact. Psych: Appropriate for situation. Results & Data Results & Data Vital Signs (Past 12 Hours) Vital Signs Temp Pulse Resp BP Pulse Ox O2 Del Method 03/28/25 07:24 36.8 C 81 16 96/61 L 98 Room Air Laboratory Results -personally reviewed, creatinine at baseline Medications Administered Baclofen (Baclofen 10 Mg Tab) 10 mg PO BID [facility] Stop: 04/23/25 20:59 Last Admin: 03/28/25 09:57 Dose: 10 mg Documented By: Admin: 03/27/25 20:14 Dose: 10 mg Documented By: Admin: 03/27/25 09:04 Dose: 10 mg Documented By: Admin: 03/26/25 21:21 Dose: 10 mg Documented By: Admin: 03/26/25 09:40 Dose: 10 mg Documented By: Admin: 03/25/25 20:23 Dose: 10 mg Documented By: Admin: 03/25/25 09:38 Dose: 10 mg Documented By: Admin: 03/24/25 23:18 Dose: 10 mg Documented By: CHASE Duloxetine HCl (Duloxetine Hcl 20 Mg Cap) 20 mg PO DAILY ZULY Stop: 04/24/25 08:59 Last Admin: 03/28/25 09:57 Dose: 20 mg Documented By: Admin: 03/27/25 09:04 Dose: 20 mg Documented By: Admin: 03/26/25 09:40 Dose: 20 mg Documented By: Admin: 03/25/25 09:38 Dose: 20 mg Documented By: ANGELA Famotidine (Famotidine 20 Mg Tab) 20 mg PO BID ZULY Stop: 04/23/25 20:59 Last Admin: 03/28/25 09:57 Dose: 20 mg Documented By: Admin: 03/27/25 20:14 Dose: 20 mg Documented By: EGChriss Admin: 03/27/25 09:04 Dose: 20 mg Documented By: Admin: 03/26/25 21:21 Dose: 20 mg Documented By: EGChriss Admin: 03/26/25 09:40 Dose: 20 mg Documented By: Admin: 03/25/25 20:23 Dose: 20 mg Documented By: Admin: 03/25/25 09:47 Dose: 20 mg Documented By: Admin: 03/24/25 23:18 Dose: 20 mg Documented By: CHASE Heparin Sodium (Porcine) (Heparin Sod 5,000 Unit/0.5 Ml Vial) 5,000 units SQ Q12 ZULY Stop: 04/23/25 21:53 Last Admin: 03/28/25 09:55 Dose: Not Given Documented By: Admin: 03/27/25 20:14 Dose: 5,000 units Documented By: EGChriss Admin: 03/27/25 09:04 Dose: 5,000 units Documented By: Admin: 03/26/25 21:21 Dose: 5,000 units Documented By: Admin: 03/26/25 09:40 Dose: 5,000 units Documented By: Admin: 03/25/25 20:23 Dose: 5,000 units Documented By: Admin: 03/25/25 09:42 Dose: Not Given Documented By: Admin: 03/24/25 23:18 Dose: 5,000 units Documented By: CHASE Ceftriaxone Sodium (Rocephin) 2,000 mg in 50 mls @ 100 mls/hr IV DAILY ZULY Stop: 04/08/25 10:59 Last Infusion: 03/28/25 10:33 Dose: Infused Documented By: Admin: 03/28/25 09:57 Dose: 100 mls/hr Documented By: Infusion: 03/27/25 09:21 Dose: Infused Documented By: Admin: 03/27/25 08:39 Dose: 100 mls/hr Documented By: Infusion: 03/26/25 10:26 Dose: Infused Documented By: Admin: 03/26/25 09:40 Dose: 100 mls/hr Documented By: Infusion: 03/25/25 14:33 Dose: Infused Documented By: Admin: 03/25/25 13:58 Dose: 100 mls/hr Documented By: ANGELA Amino Acids 2,130 ml/ (Nutrition (Parenteral)) 2,130 mls @ 88.7 mls/hr IV .Q24H ZULY; Protocol Stop: 03/28/25 15:59 Last Admin: 03/27/25 15:22 Dose: 88.7 mls/hr Documented By: ROSA Co-signed By: MIGUEL Loratadine (Loratadine 10 Mg Tab) 10 mg PO QAM ZULY Stop: 04/24/25 08:59 Last Admin: 03/28/25 09:57 Dose: 10 mg Documented By: Admin: 03/27/25 09:04 Dose: 10 mg Documented By: Admin: 03/26/25 09:40 Dose: 10 mg Documented By: Admin: 03/25/25 09:38 Dose: 10 mg Documented By: ANGELA Montelukast Sodium (Montelukast Sodium 10 Mg Tablet) 10 mg PO HS ZULY Stop: 04/23/25 20:59 Last Admin: 03/27/25 20:14 Dose: 10 mg Documented By: Admin: 03/26/25 22:04 Dose: 10 mg Documented By: Admin: 03/25/25 20:23 Dose: 10 mg Documented By: Admin: 03/24/25 23:19 Dose: 10 mg Documented By: CHASE Olanzapine (Olanzapine 2.5 Mg Tab) 2.5 mg PO DAILY ZULY Stop: 04/24/25 08:59 Last Admin: 03/28/25 09:57 Dose: 2.5 mg Documented By: Admin: 03/27/25 09:04 Dose: 2.5 mg Documented By: Admin: 03/26/25 09:41 Dose: 2.5 mg Documented By: Admin: 03/25/25 09:39 Dose: 2.5 mg Documented By: ANGELA Ondansetron HCl (Ondansetron Inj 2 Mg/Ml 2 Ml Vial) 4 mg IV Q4H PRN PRN Reason: Nausea Stop: 04/23/25 21:53 Last Admin: 03/26/25 14:19 Dose: 4 mg Documented By: ROSA (1) Fever Fever type: due to other condition Qualified Code(s): R50.81 - Fever presenting with conditions classified elsewhere
[2025-03-28] MEDS: [UNRECOGNIZED DRUG - OTHER] IV SCH (16:20)
[2025-03-28] MEDS: PERIPHERAL TPN IV SCH (16:20)
[2025-03-29 07:43] LABS: Anion Gap 5.0 (3-11); Blood Urea Nitrogen 14.0 mg/dl (6-23); Calcium 9.1 mg/dl (8.6-10.3); Carbon Dioxide 28.0 mmol/L (21-32); Chloride 105.0 mmol/L (98-107); Creatinine Clr Calc Pharmacy 112.4 ml/min; Glucose 95.0 mg/dl (70-99(Fasting)); Magnesium 2.2 mg/dl (1.7-2.4); Potassium 3.9 mmol/L (3.5-5.1); Sodium 138.0 mmol/L (136-145)
[2025-03-29] MEDS: guaiFENesin 600 MG TABCR PO PRN (08:03)
--- NOTE | 2025-03-29 11:53 | Vascular Surgery Progress Note ---
Date of Service March 29, 2025 Assessment & Plan (1) History of central line-associated bloodstream infection (CLABSI): Plan: Plan for insertion of tunneled central line. Silicone line arrived today. Plan to access left internal jugular vein. Risks/goals/alternatives discussed with patient who understands and agrees to proceed. Admission and Anticipated Discharge Date Admission Date: March 24, 2025 Subjective No reported problems. Resting comfortably in bed. Physical Exam Physical Exam: Right chest wall prior catheter exit site clean. Results & Data Vital Signs (Past 12 Hours) Vital Signs Temp Pulse Resp BP Pulse Ox O2 Del Method 03/29/25 07:18 36.7 C 85 16 101/69 98 Room Air 03/28/25 23:53 84 Laboratory Results Blood Cx from 03/26 no growth to date. PG Care Time/CCT Total # of Minutes Spent Total Time Spent with Patient: Total time spent is greater than 50% in coordination of care (as documented) at patient's floor/unit and/or counseling patient:
--- NOTE | 2025-03-29 11:54 | Pre Anesthesia Assessment ---
Date of Service March 29, 2025 Pre Sedation Assessment Vital Signs Temp Pulse Resp BP Pulse Ox O2 Del Method 03/29/25 07:18 36.7 C 85 16 101/69 98 Room Air 03/28/25 23:53 84 03/28/25 23:10 36.6 C 104 H 16 100/64 98 Room Air 03/28/25 15:02 36.6 C 88 16 90/58 L 97 Room Air Cardiovascular RRR, no murmur, no edema Respiratory normal respiratory effort, lungs clear to auscultation Pre-Sedation Airway Assessment Smoking Status: Never smoker Hx Sleep Apnea: No Short, Thick Neck: No Thyromental Distance: > or= 3.5 Finger Breadths Oral Cavity: + WNL Mallampati Class: III ASA: ASA3 NPO Status Date of Last Intake of Fluids: 03/24/25 Time of Last Intake of Fluids: 07:30 Date of Last Intake of Solid Food: 03/23/25 Time of Last Intake of Solid Foods: 20:00 Procedure Planning Contraindications for Sedation: none Current Medications Reviewed: Yes Notes The planned sedation has been discussed with the patient. Informed Consent was obtained. I have identified the patient, determined the appropriateness of sedation and have assessed the patient immediately prior to the procedure. All medicine(s) and interventions are by my order.
--- NOTE | 2025-03-29 14:19 | Discharge Summary ---
Discharge Summary Date of Service March 29, 2025 Principal Dx & Hospital Course #1 = Principal Diagnosis (1) History of central line-associated bloodstream infection (CLABSI): (2) Severe protein-calorie malnutrition: (3) Gastrointestinal dysmotility: (4) On total parenteral nutrition (TPN): Plan Ms. Mccarthy is a 29-year-old female with PMHx significant for hypermobile Jaqui Danlos syndrome, POT, severe protein calorie malnutrition and GI dysmotility on chronic TPN therapy since 2020, chronic nausea, history of recurrent CLABSI, bile reflux gastritis, chronic pain syndrome, CESILIA, history of Helicobacter pylori infection and right ovarian cyst who presented to the ED due to fever. Several prior admissions for central line-associated bloodstream infections. Confinement under our service in May 2024 with central line-associated MSSA bacteremia s/p IV Ancef x 14d course. Most recent confinement under our service in November 2024 with central line-associated Staphylococcus epidermidis bacteremia s/p IV daptomycin x 14d course with retained line. Confinement at [facility] 12/24/24-01/03/25 with MSSA bacteremia secondary to infected CVC TPN line. CVC TPN line replaced - located on upper R chest wall. TTE: no evidence of endocarditis. S/p IV Ancef course completed on 01/09/25. Gram Negative Bacteremia Sepsis History of recurrent CLABSI with CVC line in R upper chest wall POA -Fever of 101F [employer] tachycardic in the 110s to 150s and elevated lactic acid c/f possible sepsis. -blood culture returning with E. coli/enterobacter consistent with possible line infection -will need to remove line given 3rd line infection this year -likely exit site infection, patient does not want salvage therapy given signif icant history -catheter removal 03/26, repeat cultures prelim negative Plan: -vascular surgery consulted, appreciate recs -awaiting tubing for Hickmann placement, likely arrival tomorrow, NPO after midnight, discussed with vascular surgery -continue PPN -continue ceftriaxone, will need 7 day course of abx -case discussed with ID Severe protein calorie malnutrition Gastrointestinal dysmotility on chronic TPN therapy since 2020 -GI nutrition recommended changing pt's G-tube for a GJ tube with the hope of starting enteral feedings during [facility] confinement in December. -GJ tube was placed by IR on 12/29/24 and exchanged on 01/03/25. -Tube feed initiation was not tolerated while inpatient secondary to nausea. TPN was continued while inpatient and tolerated using new CVC line. -Pt has attempted several tube feedings since December without success secondary to nausea. -Does take in some enteral nutrition, ex: ice cream, chicken. -Pt also with h/o recurrent malpositioning of GJ tube requiring multiple replacements/reintervention for placement positioning with both IR and GI. - underwent replacement of her GJ tube with Dr. Glaaviz at [facility] on 02/25/25. -Since pt was not tolerating tube feeds through her GJ tube, she underwent removal of this on 03/10/25 and had a G-tube placed to allow for gastric venting. Plan: -Current TPN Regimen: 2.8 L TPN x14 hours 6 days per week with 72 gm aa, 200 gm dextrose (lipid days) vs 250 gm dextrose (non-lipid days), and 53 gm lipid 2x/week (1138 Kcals vs 1498 Kcals on lipid days 2x/week) -1L fluids per week on off day (rotates - "mental health day") -Provides 24-32 Kcals/kg and 1.6 gm protein/kg -office systems technology instructor consult, appreciate recs Recent LLL aspiration pneumonitis/PNA -chest xray unremarkable Elevated LFTs -AST 111, ALT 79 - both WNL on DC from last confinement under our service. -likely 2/2 TPN -GI consulted, appreciate recs Chronic pain syndrome -Follows with pain management through [facility]. -Continue Baclofen and Cymbalta. Chronic nausea -Continue granisetron and Zyprexa. -PRN IV Zofran for refractory N/V. Seasonal allergies -Continue Singular and Claritin. Notes For Next Care Provider 29-year-old female with PMHx significant for hypermobile Jaqui Danlos syndrome, POT, severe protein calorie malnutrition and GI dysmotility on chronic TPN therapy since 2020, chronic nausea, history of recurrent CLABSI, bile reflux gastritis, chronic pain syndrome, CESILIA, history of Helicobacter pylori infection and right ovarian cyst who presented to the ED due to fever. Admitted to medicine for likely line infection. Discussed with infectious disease, recommended line removal. Vascular surgery consulted, removed line. Blood cul tures grew pansensitive E. coli. PPN started after repeat blood cultures prelim negative. Vascular surgery replaced line on 03/29/2025. Home health and TPN services resent and signed for with case management. On 03/29/2025 patient medically stable for discharge home. To do: [ ] f/u with ID, vascular surgery, GI Medication Changes From Visit -augmentin to finish 7 day course, guaifensin Admission HPI Per Admitting Provider Patient is a 29-year-old female with PMHx significant for hypermobile Jaqui Danlos syndrome, POT, severe protein calorie malnutrition and GI dysmotility on chronic TPN therapy since 2020, chronic nausea, history of recurrent CLABSI, bile reflux gastritis, chronic pain syndrome, CESILIA, history of Helicobacter pylori infection and right ovarian cyst who presented to the ED due to fever. History obtained from the patient, patient's mother at bedside, discussion with ED provider and associated chart review. Several prior admissions for central line-associated bloodstream infections. Confinement under our service in May 2024 with central line-associated MSSA bacteremia s/p IV Ancef x 14d course. Most recent confinement under our service in November 2024 with central line-associated Staphylococcus epidermidis bacteremia s/p IV daptomycin x 14d course with retained line. Patient then admitted at [facility] 12/24/2024-01/03/2025 with MSSA bacteremia secondary to infected CVC TPN line. The line was removed by IR within 24hr of admission. Patient was initially started on broad-spectrum antibiotics which were subsequently narrowed to Ancef, which she completed on 01/09/2025. TTE revealed no evidence of endocarditis. Repeat blood cultures were negative for greater than 72 hours prior to placement of new CVC line by IR in right upper chest wall. GI nutrition recommended changing patient's G-tube for a GJ tube with the hope of starting enteral feedings. This was placed by IR on 12/29/2024 and exchanged on 01/03/2025. Tube feed initiation was not tolerated while inpatient secondary to nausea. TPN was continued while inpatient and tolerated using new CVC line. Patient has attempted several tube feedings since December without success secondary to nausea. Does take in some enteral nutrition. Patient also with history of recurrent malpositioning of GJ tube requiring multiple replacements/reintervention for placement positioning with both IR and GI. Patient underwent replacement of her GJ tube with Dr. Galaviz at [facility] on 02/25/2025. Patient developed a persistent nonproductive cough after this procedure and had a CTAP done on 03/04/2025 which revealed a left lower lobe aspiration pneumonitis/or pneumonia. Patient was prescribed a Z-Fernando for this which she completed. Still with persistent dry cough. Has trialed course of prednisone as well as Tessalon Perles without any relief. Did have repeat OP CXR on 03/08/2025 which revealed no acute findings. CXR in ED today again with no acute findings. Since patient was not tolerating tube feeds through her GJ tube, she underwent removal of this on 03/10/2025 and had a G-tube placed to allow for gastric venting. However, patient still not doing any tube feeds [employer]. Patient is currently receiving parenteral nutrition through her right upper chest wall CVC line. Current TPN Regimen: 2.8 L TPN x14 hours 6 days per week with 72 gm aa, 200 gm dextrose (lipid days) vs 250 gm dextrose (non-lipid days), and 53 gm lipid 2x/week (1138 Kcals vs 1498 Kcals on lipid days 2x/week) -1L fluids per week on off day (rotates - "mental health day") -Provides 24-32 Kcals/kg and 1.6 gm protein/kg Patient follows with nutrition and weight management through [facility]. Patient states she woke up today feeling sweaty and took her temperature which revealed a fever of 101F. Also was experiencing palpations with and noted that her HR was fluctuating between 122-198bpm per her readings on her Apple Watch device. Other than her continual persistent dry cough, her only other main complaint is a fever. States she had been feeling otherwise fine up until this morning. Chronic abdominal pain unchanged from baseline as well as her chronic nausea. No recent bouts of vomiting. Denies any bowel or urinary habit changes. No new diffuse skin rashes. Has a very small amount of erythema superiorly to the insertion site of her CVC line in the upper chest wall but she has been associating this to her stitches, which she has been sensitive to in the past with a similar skin reaction after getting new CVC lines placed. Denies any tenderness with palpation around the insertion site of her CVC line. Also no reported discharge from her CVC line insertion site. Most recently changed her dressing over this site last evening. Discharge Exam Gen: A&O 3 NAD, cachexia noted HEENT: NCAT, EOMI, not icteric. External ears normal. No rhinorrhea. Moist mucous membranes. Neck: Supple, full range of motion, no observable masses, No meningeal sign. Lungs: No Respiratory distress. CV: RRR, no edema. Abdomen: Soft, nondistended, No rebound tenderness. MSK: No joint swelling, no redness. Skin: noted removal of Chao Neuro: Normal Gait, Grossly intact. Psych: Appropriate for situation. Updated Medication List Medication Instructions Recorded Confirmed Type famotidine 20 mg tablet 20 mg PO BID 04/09/21 03/24/25 History loratadine 10 mg tablet 10 mg PO QAM 04/09/21 03/24/25 History montelukast 10 mg tablet 10 mg PO HS 04/09/21 03/24/25 History (Singulair) ondansetron HCl 8 mg tablet 8 mg PO Q8 PRN Nausea 04/09/21 03/24/25 History linaclotide 145 mcg capsule 145 mcg PO QAM PRN Constipation 01/02/22 03/24/25 History (Linzess) cholecalciferol (vitamin D3) 1,250 1,250 mcg PO WK 01/13/23 03/24/25 History mcg (50,000 unit) capsule granisetron HCl 1 mg tablet 1 mg PO Q12H 09/23/23 03/24/25 History hydroxyzine HCl 10 mg tablet 50 mg PO QID PRN Anxiety 09/23/23 03/24/25 History olanzapine 2.5 mg tablet 2.5 mg PO DAILY 12/17/23 03/24/25 History baclofen 10 mg tablet 10 mg PO BID 05/21/24 03/24/25 History cyanocobalamin (vitamin B-12) 1,000 mcg IM MONTHLY 05/21/24 03/24/25 History 1,000 mcg/mL injection solution duloxetine 20 mg capsule,delayed 20 mg PO DAILY 05/21/24 03/24/25 History release amoxicillin 500 mg-potassium 1 tab PO Q12H 3 days #6 tabs 03/29/25 Rx clavulanate 125 mg tablet (Augmentin) guaifenesin 600 mg tablet, 1,200 mg (2 x 600 mg) PO Q12 PRN 03/29/25 Rx extended release 12 hr (Mucinex) cough 7 days #7 tabs Hospital Stay Data Consultations 03/24/25 18:04 ED Decision to Admit Stat 03/24/25 20:38 Consult Gastroenterology Routine 03/25/25 07:58 Consult Vascular Surgery Routine Procedures Performed Operation Date: 03/29/25 09:30 <No data on this case meets the specified criteria> Diagnostic Imagining Performed 03/25/25 09:43 US abdomen limited Routine 03/25/25 12:53 EV cvc remov tunnel wo prt/slasher tender helper Routine 03/29/25 10:32 EV cvc insrt tunnel wo prt/slasher tender helper Routine US EV guide vascular access Routine Pending Results Patient Have Any Pending Studies at Discharge: No Discharge Instructions Given to Patient (Per Discharging Provider) Diagnosis; E. coli CABSI/CLABSI s/p catheter removal and replacement Follow Ups: PCP, GI, vascular surgery, psychiatry 1. Please follow up with PCP, GI, vascular surgery, psychiatry. 2. Please utilize TPN at home as prescribed. 3. Stay hydrated! 4. Please make sure you perform good line care. Total Time Total Time Spent Total Time Spent (In Minutes): I spent a total of 35 minutes in direct patient care, including [id number]-[id number] time with the patient and/or family, reviewing medical records, ordering and reviewing diagnostic tests, and coordinating care with other healthcare providers. This time includes: history taking, physical examination, medical decision making, counseling, ECG interpretation, imaging interpretation, lab interpretation, orders, and education, excluding time spent in the performance of separately billed services.
[2025-03-29] MEDS: MIDAZOLAM HCL 1 MG/ML 2ML VIAL ONE (14:45)
[2025-03-29 15:21] VITALS: RESP 16
[2025-03-29] MEDS: LIDOCAINE 1% LOCAL 20 ML VIAL ONE (15:24)
--- NOTE | 2025-03-29 15:32 | Post Anesthesia Assessment ---
Date of Service March 29, 2025 Post Sedation Assessment Vital Signs Temp Pulse Pulse Pulse Resp BP Pulse Ox 03/29/25 15:25 95 H 16 115/79 100 03/29/25 15:20 105 H 16 121/83 100 03/29/25 15:15 105 H 20 120/83 100 03/29/25 15:10 127 H 20 126/90 100 03/29/25 15:05 106 H 16 111/77 100 03/29/25 15:00 102 H 18 116/78 100 03/29/25 14:55 106 H 15 112/79 100 03/29/25 14:50 100 H 16 124/72 100 03/29/25 14:45 100 H 16 107/75 100 03/29/25 13:55 36.6 C 103 H 103 H 17 108/72 100 03/29/25 07:18 36.7 C 85 16 101/69 98 03/28/25 23:53 84 03/28/25 23:10 36.6 C 104 H 16 100/64 98 O2 Del Method O2 Flow Rate 03/29/25 15:25 Oxymask 4 03/29/25 15:20 Oxymask 4 03/29/25 15:15 Oxymask 4 03/29/25 15:10 Oxymask 4 03/29/25 15:05 Oxymask 4 03/29/25 15:00 Oxymask 4 03/29/25 14:55 Oxymask 4 03/29/25 14:50 Oxymask 4 03/29/25 14:45 Oxymask 4 03/29/25 13:55 Room Air 03/29/25 07:18 Room Air 03/28/25 23:53 03/28/25 23:10 Room Air Recovery Score Activity: Moves 4 extremities Respiration: Deep Breath/Cough Circulation: +/-20% PreAnes Value Consciousness: Fully Awake Oxygen Saturation: > 92% On Room Air Post Anesthesia Score: 10 Discharge Sedation Level of Care: Fast Track Phase II Post Sedation Plan On clinical assessment, the patient appears to have tolerated the sedation without complications. Patient is recovering as anticipated. Patient will continue to be monitored by nursing and may be discharged when sedation discharge criteria are met per below protocol. Upon Completions of procedure up to 15 minutes continue every 5 minute vital signs and the P.A.R. score; then discharge to a Phase I or Fast Track to Phase II per the following guidelines: * Discharge Patient to appropriate Phase II area if PAR is 8 or greater or return to pre- procedure baseline. The post - procedure orders will be as dir ected. * If PAR score is less than 8 or not return to pre-procedure baseline then patient will follow Phase I monitoring till PAR is reached for Phase II. The Phase I may be done in procedure room or may call to secure a Phase I area. * If naloxone or flumazenil are used for reversal, hold in Phase I for continued monitoring from when last reversal dose was given for a minimum of 60 minutes or longer pending the nurse and/or physician discretion of patient condition before discharge to Phase II. Please call the Sedation Physician to re-evaluate and complete post-note for discharge to Phase II area. Do NOT discharge from procedure sedation or Phase 1 until post- sedation evaluation note is complete by procedure /sedation MD Sedation Discharge Instructions to be given to the patient at discharge to home.
--- NOTE | 2025-03-29 15:45 | Operative Report ---
PG Post Operative Report Pre & Post Diagnosis Operation Date: 03/29/25 09:30 Pre-Op Diagnosis: Need for IV Access Post-Op Diagnosis: Need for IV Access I identified the patient and participated in the time-out.: Yes Procedure Operation Date: 03/29/25 09:30 Actual Procedures p Chao Catheter Placement, Moderate Sedation 14:45 - 15:35 - Ismael Espana MD Surgeon Ismael Espana MD Tire Changer Humera Whitman PA-C Estimated Blood Loss 10 Findings Consistent with Post-Op Diagnosis Specimens none Anesthesia Type RN Sedation Complications none Disposition Accompanied Patient To Recovery: No Indications Patient with TPN dependence and need for custodial IV access Description of Procedure A timeout was performed and the patient was identified and the procedure verified. Conscious sedation was administered under my direction. The left neck was prepped and draped usual sterile fashion. The skin was infiltrated with 1% lidocaine. The left internal jugular vein was I identified and accessed with a micropuncture needle. A mandrel wire was inserted under fluoroscopic control and a 5 [place] micro sheath was inserted. Extension tubing was connected and was filled with blood and then elevated to allow the column of blood to drop to assure intravenous placement. This was then upsized to the peel-away dilator and sheath over a J-wire. After infiltrating the skin with 1% lidocaine, a counterincision was made on the chest wall just lateral to her prior port scar. A subcutaneous tunnel was created to connect these 2. A silicone central venous 7 Citizen [place] catheter was brought onto the field and measured and trimmed to length. Using the tunneling device it was connected between the 2 incisions and the cuff was inserted about a centimeter into the tunnel. The length of the catheter was confirmed under fluoroscopy. It was inserted into the peel-away sheath and the sheath was removed. Fluoroscopy was again performed to confirm appropriate location. Both lumens of the port were then flushed and instilled with low-dose heparin given that the catheter will be accessed later today. The puncture site with access to the vein was closed with a single Monocryl suture and then Dermabond. A nylon suture was then placed over the exit site and used to secure the catheter and a bio impregnated dressing was placed. The patient was taken back to her floor bed in stable condition and tolerated procedure well without immediate complication. A chest x-ray will be obtained. Sedation start 1445, and 1535. 1.5 mg Versed, 100 mcg fentanyl. I attest to the content of the Intraoperative Record and any orders documented therein. Any exceptions are noted below.
[2025-03-29] MEDS: [UNRECOGNIZED DRUG - OTHER] IV SCH (15:59)
[2025-03-29] MEDS: PERIPHERAL TPN IV SCH (15:59)
[2025-03-29] MEDS: CLINOLIPID 20% IV FAT EMULSION 250 ML IV SCH (16:00)
[2025-03-29 16:09] VITALS: BP 95/62; PULSE 83; TEMP 98.4; O2SAT 99
--- NOTE | 2025-03-29 16:14 | XRay Report ---
Technique: A frontal view of the chest was obtained Comparison is made to the prior examination dated 03/24/2025 Findings: There are no confluent pulmonary infiltrates. The heart size is within normal limits. No pleural effusion or pneumothorax is seen. There is no definite pulmonary nodule. No fracture is noted. There is a left jugular central venous line with its tip in the mid SVC Impression: No active disease Electronically signed by Deejay Bashir 03-29-2025 4:14 PM
[2025-03-30] MEDS ORDERED: STOP CLINOLIPID SCH (04:00)
[2025-03-30] MEDS ORDERED: ERGOCALCIFEROL 1250 MCG (50,000 UNITS) CAP PO SCH (09:00)
== END 2025-03-29 18:10 | disposition home or self-care (01) | DRG 871 ==
LOC: ED 14:28 → SUATTDRO 19:23 → 2W 19:23 → 3E 03-26 14:10

== ENCOUNTER 2025-04-09 00:48 | Inpatient (IN) ==
[2025-04-09] MEDS: SODIUM CHLORIDE 0.9% 1,000 ML IV ONE ×2 (01:18→03:44)
--- NOTE | 2025-04-09 01:32 | Emergency Department Note ---
Impression & Plan Sepsis, Abdominal pain, chronic, epigastric, Severe malnutrition ED Provider Note NAME: RICK JENKINS AGE: 29 SEX: F : 1995 ARRIVES VIA: Walk-In INFORMANT: Patient, ED PROVIDER(S): Afua Rashid MD CHIEF COMPLAINT: Nausea, fever, pain HPI: This is a 29-year-old female present for nausea, fever and pain. Patient states that she started TPN today. She felt nauseous after this. She felt shaky. She had a fever at home. She was just recently discharged for E. coli bacteremia with suspected line infection. This was then removed and replaced. She does take TPN. She also notes attempting to eat tacos today. She reports slight abdominal discomfort. Feels similar to when she has previous sepsis. ROS: See above HPI for pertinent positives & negatives. A total of 10 systems reviewed and were otherwise negative. PAST MEDICAL HISTORY: See Below PAST SURGICAL HISTORY: See Below FAMILY HISTORY: See Below SOCIAL HISTORY: See Below HOME MEDICATIONS: See Below ALLERGIES: See Below VITALS: See Below PHYSICAL EXAMINATION: General: resting comfortably in no acute distress Head: Normocephalic and atraumatic Eyes: Normal inspection, extraocular muscles intact Ear, nose, throat: Normal external exam Neck: Normal range of motion Respiratory: lungs clear to auscultation bilaterally Cardiovascular: Tachycardic rate/rhythm, no murmur GI: soft, nontender, no guarding or rebound Extremities: nontender, moves all extremities Neuro: The patient awake and alert, appropriately conversive, no focal deficits, symmetric faces Skin: Warm, dry, and intact MEDICAL DECISION MAKING: This is a 29-year-old female presenting for nausea, fever and mild abdominal pain. Patient has a nontender abdomen at this time. She has tachycardic, febrile. She was recently just discharged for E. coli sepsis. Will do screening blood work, fluids and sedation, antipyretic. - Patient blood reveals no significant leukocytosis, lactic acid elevation or procalcitonin -Patient is persistently febrile, tachycardic and now hypotensive. Will give second liter normal saline -Chest Xray independently interpreted by me showing no pneumothorax, focal opacity, or pleural effusions. -ECG independently interpreted by me with sinus tachycardia, rate of 140, normal OH, normal QRS, normal QTc, no ST segment elevations consistent with STEMI criteria -Patient will require admission at this time for suspected sepsis. Patient gotten ceftriaxone empirically as she had previous E. coli bacteremia. Blood culture still pending. Care shows Dr. Figueredo for admission Differential diagnosis: Sepsis, bacteremia, UTI, pneumonia, line infection Independent History obtained from: Father Diagnostics interpreted by me: ECG: See above Cardiac Monitoring: An order was placed for continuous cardiac monitoring. The monitor shows a rate of 125 with sinus rhythm. Critical Care Note: I have personally spent 37 minutes of critical care time in the direct management of this patient. This includes bedside care, interpretation of diagnostic studies, and testing, discussion with consultants, patient, and family members, and other required patient management activities. This 37 minutes is in excess of all separately billable procedures. Past Med/Surg History Problem List (Updated 04/09/25 @ 06:00 by Afua Rashid MD) Sepsis (Acute) Pneumonitis (Acute) Acute dehydration (Acute) Severe protein-calorie malnutrition (Acute) History of central line-associated bloodstream infection (CLABSI) Bacteremia due to methicillin resistant Staphylococcus epidermidis Infection of venous access port (Acute) Sepsis (Acute) MSSA bacteremia Infection complicating venous access device Bacterial sepsis CLABSI (central line-associated bloodstream infection) Cellulitis (Acute) Bacteremia due to Enterococcus Sepsis Tachycardia (Acute) Central venous catheter in place broke- clamped in ER, taped around site Fungemia DVT prophylaxis Encounter for pre-operative examination (~02/07/23) Gastrointestinal dysmotility Close exposure to COVID-19 virus (Acute) Iron deficiency (Acute) Symptomatic anemia (Acute) Chronic pain POTS (postural orthostatic tachycardia syndrome) History of esophagogastroduodenoscopy (EGD) Severe malnutrition (Acute) Abdominal pain, chronic, epigastric (Acute) chronic On total parenteral nutrition (TPN) Jaqui-Danlos disease Dx several years ago Medical History Anxiety Gastrointestinal dysmotility Reactive hypoglycemia dexcom present to left arm Anemia Neuropathy legs Gastroparesis History of COVID-19 02/2022, not hospitalized 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 Jejunostomy tube present placed October 2020 Surgical History History of removal of Port-a-Cath (05/21/24) Infusaport Removal - Left side(Left) - Alton Garcia, , FACS History of myringotomy History of surgery (06/24/21) Removal of Right Tunneled Central Line in Internal Jugular Catheter H/O wisdom tooth extraction H/O wrist surgery right S/P knee surgery Left Family History Other Adopted Social History Smoking Status: Never smoker Second Hand Exposure: No; Do You Dip or Chew Tobacco: No; Hx Alcohol Use: No Hx Substance Use: No Preferred Language: Kittitian Communication Ability: Effective 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: No Beliefs That Will Affect Care: None Current Living Situation: Parent Current Living Situation Comment: Lives w/ family at home Feels Safe at Home: Yes Assistive Devices: None Allergies Allergies Allergy/AdvReac Type Severity Reaction Status Date / Time diphenhydramine Allergy Severe Urticaria, Verified 04/07/25 14:40 [From Benadryl] severe anxiety, jittery prochlorperazine Allergy Severe Anaphylaxis Verified 04/07/25 14:40 [From Compazine] adhesive Allergy Intermediate Redness, Verified 04/07/25 14:40 swelling gluten Allergy Intermediate Hives, GI Verified 04/07/25 14:40 upset peanut Allergy Intermediate Itchy Verified 04/07/25 14:40 throat tree nut Allergy Intermediate Itchy Verified 04/07/25 14:40 throat pollen extracts Allergy Mild Itchy Verified 04/07/25 14:40 eyes, sneezing, congestion chlorhexidine Allergy Unknown Unknown Verified 04/07/25 14:40 iron [From Venofer] AdvReac Severe Abdominal Verified 04/07/25 14:40 Pain Latex, Natural Rubber AdvReac Intermediate Redness, Verified 04/07/25 14:40 itchy Home Meds Home Medications Medication Instructions Recorded Confirmed baclofen 10 mg tablet 10 mg PO BID 04/09/25 04/09/25 cholecalciferol (vitamin D3) 1,250 1,250 mcg PO WK 04/09/25 04/09/25 mcg (50,000 unit) tablet cyanocobalamin (vitamin B-12) 1,000 mcg IM MONTHLY 04/09/25 04/09/25 1,000 mcg/mL injection solution duloxetine 20 mg capsule,delayed 20 mg PO DAILY 04/09/25 04/09/25 release famotidine 20 mg tablet 20 mg PO BID 04/09/25 04/09/25 granisetron HCl 1 mg tablet 1 mg PO Q12H 04/09/25 04/09/25 guaifenesin 600 mg tablet, 600 mg PO Q12H PRN Cough 04/09/25 04/09/25 extended release 12 hr hydroxyzine HCl 10 mg tablet 50 mg PO QID PRN Anxiety 04/09/25 04/09/25 linaclotide 145 mcg capsule 145 mcg PO DAILY PRN Constipation 04/09/25 04/09/25 loratadine 10 mg tablet 10 mg PO DAILY 04/09/25 04/09/25 montelukast 10 mg tablet 10 mg PO HS 04/09/25 04/09/25 olanzapine 2.5 mg tablet 2.5 mg PO DAILY 04/09/25 04/09/25 ondansetron 8 mg disintegrating 8 mg PO Q8H PRN Nausea And Vomiting 04/09/25 04/09/25 tablet Results & Data (ED) Vital Signs Vital Signs - 24 hr 04/09/25 00:51 04/09/25 01:03 04/09/25 01:30 Temperature 38.2 C H Temperature Source Oral Pulse Rate 154 H 138 H Pulse Rate [Apical] 134 H Respiratory Rate 21 Respiratory Effort / Characteristics Non-Labored Spontaneous Respiratory Depth Normal Respiratory Pattern Regular Blood Pressure 108/70 Blood Pressure [Left Arm] 84/70 L Blood Pressure Mean 82 Blood Pressure Mean [Left Arm] 74 Blood Pressure Position [Left Arm] Left Lateral Pulse Oximetry 96 99 Oxygen Delivery Method Room Air Room Air Sepsis Recent Fever Within 48 Hours Yes Sepsis New/Unexplained Change in Mental Status No Sepsis Action Taken by Nursing No Action Required 04/09/25 01:32 04/09/25 02:00 04/09/25 02:48 Temperature 38 C H Temperature Source Oral Pulse Rate Pulse Rate [Apical] 130 H 139 H Respiratory Rate 20 22 Respiratory Effort / Characteristics Non-Labored Spontaneous Respiratory Depth Normal Respiratory Pattern Regular Blood Pressure Blood Pressure [Left Arm] 106/65 109/72 Blood Pressure Mean Blood Pressure Mean [Left Arm] 78 84 Blood Pressure Position [Left Arm] Semi-fowlers Left Lateral Pulse Oximetry 99 98 98 Oxygen Delivery Method Room Air Room Air Room Air Sepsis Recent Fever Within 48 Hours Sepsis New/Unexplained Change in Mental Status Sepsis Action Taken by Nursing 04/09/25 03:30 04/09/25 04:14 Temperature 37.4 C Temperature Source Oral Pulse Rate Pulse Rate [Apical] 132 H 129 H Respiratory Rate 20 16 Respiratory Effort / Characteristics Non-Labored Spontaneous Non-Labored Spontaneous Respiratory Depth Normal Normal Respiratory Pattern Regular Regular Blood Pressure Blood Pressure [Left Arm] 86/59 L 84/57 L Blood Pressure Mean Blood Pressure Mean [Left Arm] 68 66 Blood Pressure Position [Left Arm] Semi-fowlers Pulse Oximetry 97 98 Oxygen Delivery Method Room Air Room Air Sepsis Recent Fever Within 48 Hours Sepsis New/Unexplained Change in Mental Status Sepsis Action Taken by Nursing Laboratory Data 04/09/25 01:17 04/09/25 01:17 Lab Results 04/09/25 04/09/25 Range/Units 01:10 01:17 WBC 10.72 (4.8-10.8) K/ul RBC 4.26 (4.20-5.40) M/uL Hgb 11.9 L (12.0-16.0) g/dl Hct 36.6 L (37.0-47.0) % MCV 85.9 (80.0-100.0) fL MCH 27.9 (25.0-34.0) pg MCHC 32.5 (32.0-36.0) g/dL RDW Std Deviation 43.9 (36.4-46.3) fL RDW Coeff of Priscilla 14.2 (11.5-14.5) % Plt Count 419 H (130-400) K/uL MPV 8.7 L (9.4-12.4) fL Immature Gran % (Auto) 0.5 % Neut % (Auto) 91.2 % Lymph % (Auto) 7.2 % Grundy % (Auto) 0.4 % Eos % (Auto) 0.4 % Baso % (Auto) 0.3 % Neut # (Auto) 9.79 H (1.40-6.50) K/uL Lymph # (Auto) 0.77 L (1.20-3.40) K/uL Grundy # (Auto) 0.04 L (0.11-0.59) K/uL Eos # (Auto) 0.04 (0.00-0.50) K/uL Baso # (Auto) 0.03 (0.00-0.20) K/uL Immature Gran # (Auto) 0.05 (0.01-0.20) K/uL Polychromasia 1+ Ovalocytes 1+ Sodium 138 (136-145) mmol/L Potassium 3.5 (3.5-5.1) mmol/L Chloride 105 (98-107) mmol/L Carbon Dioxide 26 (21-32) mmol/L Anion Gap 7 (3-11) BUN 16 (6-23) mg/dl Creatinine 0.73 (0.6-1.2) mg/dl Est Cr Clr Drug Dosing 83.9 ml/min eGFR 115.52 BUN/Creatinine Ratio 21.9 H (10-20) Glucose 96 (70-99(Fasting)) mg/dl Lactate 1.5 (0.4-2.0) mmol/L Calcium 9.2 (8.6-10.3) mg/dl Magnesium 2.0 (1.7-2.4) mg/dl Total Bilirubin 0.6 (0.2-1.0) mg/dl Direct Bilirubin 0.2 (0-0.2) mg/dl AST 48 H (13-39) U/L ALT 33 (7-52) U/L Alkaline Phosphatase 123 H (34-104) U/L Troponin I High Sens 5.0 (0-14) pg/ml Total Protein 7.5 (6.0-8.3) gm/dl Albumin 4.4 (3.4-5.0) gm/dl Procalcitonin 0.37 (0-0.5) ng/ml Adenovirus (PCR) Not Detected (NotDetected) B. pertussis DNA (PCR) Not Detected (NotDetected) B.parapertussis DNA PCR Not Detected (NotDetected) C. pneumoniae DNA (PCR) Not Detected (NotDetected) Coronavirus OC43 (PCR) Not Detected (NotDetected) Coronavirus HKU1 (PCR) Not Detected (NotDetected) Coronavirus 229E (PCR) Not Detected (NotDetected) SARS-CoV-2 (PCR) Not Detected (NotDetected) Coronavirus NL63 (PCR) Not Detected (NotDetected) Human Metapneumovir PCR Not Detected (NotDetected) Influenza Type A (PCR) Not Detected (NotDetected) Influenza Type B (PCR) Not Detected (NotDetected) M. pneumoniae (PCR) Not Detected (NotDetected) Parainfluenza 1 (PCR) Not Detected (NotDetected) Parainfluenza 2 (PCR) Not Detected (NotDetected) Parainfluenza 3 (PCR) Not Detected (NotDetected) Parainfluenza 4 (PCR) Not Detected (NotDetected) RSV (PCR) Not Detected (NotDetected) Entero/Rhino (PCR) Not Detected (NotDetected) Administered Medications Discontinued Medications Sodium Chloride (Nss) 1,000 mls @ 999 mls/hr IV .Q1H1M ONE Stop: 04/09/25 02:02 Last Infusion: 04/09/25 02:47 Dose: Infused Documented By: Admin: 04/09/25 01:18 Dose: 999 mls/hr Documented By: PATTIE Ceftriaxone Sodium (Rocephin) 2,000 mg in 50 mls @ 100 mls/hr IV NOW STA Stop: 04/09/25 02:28 Last Infusion: 04/09/25 03:43 Dose: Infused Documented By: Admin: 04/09/25 02:47 Dose: 100 mls/hr Documented By: PATTIE Sodium Chloride (Nss) 1,000 mls @ 999 mls/hr IV .Q1H1M ONE Stop: 04/09/25 04:38 Last Infusion: 04/09/25 05:32 Dose: Infused Documented By: Admin: 04/09/25 03:44 Dose: 999 mls/hr Documented By: PATTIE Acetaminophen (Ofirmev) 1,000 mg in 100 mls @ 400 mls/hr IV NOW STA Stop: 04/09/25 03:52 Last Infusion: 04/09/25 04:09 Dose: Infused Documented By: Admin: 04/09/25 03:45 Dose: 400 mls/hr Documented By: PATTIE Vancomycin HCl (Vancomycin Hcl / Nss) 1,000 mg in 270 mls @ 200 mls/hr IV NOW ONE; Protocol Stop: 04/09/25 05:50 Last Admin: 04/09/25 05:32 Dose: 200 mls/hr Documented By: PATTIE Sodium Chloride (Nss) 500 mls @ 999 mls/hr IV .Q31M ONE Stop: 04/09/25 05:11 Last Admin: 04/09/25 05:32 Dose: 999 mls/hr Documented By: PATTIE Ketorolac Tromethamine (Ketorolac Tromethamine 15 Mg/Ml Vial) 15 mg IV NOW ONE Stop: 04/09/25 01:31 Last Admin: 04/09/25 01:37 Dose: 15 mg Documented By: EMB Imaging Data Radiologist's Impression: Chest X-Ray 04/09/25 01:01 EXAM: XR chest 1V portable CLINICAL HISTORY: Sepsis TECHNIQUE: A radiograph of the chest was acquired. 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 The cardiomediastinal silhouette is within normal limits. No acute osseous abnormality is identified. A central line is in place via the left side approach. IMPRESSION: 1. No acute cardiopulmonary disease. Stable. 2. Interval placement of central line. Electronically signed by Josep Romano 04-09-2025 03:03 AM Discharge Plan Visit Data Chief Complaint: Fever Stated Complaint: FEVER,CHILLS,VOMITING, ED Provider: Afua Rashid Discharge Problem: Sepsis, Abdominal pain, chronic, epigastric, Severe malnutrition Patient Disposition: Admitted As Inpatient Condition: Critical Discharge Instructions Interventions: ED Discharge Assessment Last Done: 04/09/25 05:13
[2025-04-09] MEDS: KETOROLAC TROMETHAMINE 15 MG/ML VIAL IV ONE (01:37)
[2025-04-09 01:44] LABS: Hematocrit (blood only) 36.6 % (37.0-47.0); Hemoglobin 11.9 g/dl (12.0-16.0); Mean Corpuscular Hemoglobin 27.9 pg (25.0-34.0); Mean Corpuscular Volume 85.9 fL (80.0-100.0); Platelet Count 419 K/uL (130-400); RDW Standard Deviation 43.9 fL (36.4-46.3); Red Blood Count 4.26 M/uL (4.20-5.40); White Blood Count 10.72 K/ul (4.8-10.8)
[2025-04-09 02:00] LABS: Immature Granulocytes # (auto) 0.05 K/uL (0.01-0.20); Immature Granulocytes % (auto) 0.5 %; Ovalocytes 1+; Polychromasia 1+
[2025-04-09 02:01] LABS: Alanine Aminotransferase 33.0 U/L (7-52); Albumin Level 4.4 gm/dl (3.4-5.0); Alkaline Phosphatase 123.0 U/L (34-104); Anion Gap 7.0 (3-11); Bilirubin,Total 0.6 mg/dl (0.2-1.0); Blood Urea Nitrogen 16.0 mg/dl (6-23); Calcium 9.2 mg/dl (8.6-10.3); Carbon Dioxide 26.0 mmol/L (21-32); Chloride 105.0 mmol/L (98-107); Creatinine Clr Calc Pharmacy 83.9 ml/min; Glucose 96.0 mg/dl (70-99(Fasting)); Magnesium 2.0 mg/dl (1.7-2.4); Potassium 3.5 mmol/L (3.5-5.1); Sodium 138.0 mmol/L (136-145); Total Protein 7.5 gm/dl (6.0-8.3)
[2025-04-09 02:23] LABS: Chlamydia pneumoniae PCR Not Detected (NotDetected); Coronavirus 229E PCR Not Detected (NotDetected); Coronavirus CoV-2 (COVID19)PCR Not Detected (NotDetected); Coronavirus HKU1 PCR Not Detected (NotDetected); Coronavirus NL63 PCR Not Detected (NotDetected); Coronavirus OC43PCR Not Detected (NotDetected); Human Metapneumovirus PCR Not Detected (NotDetected); Parainfluenza Virus 1 PCR Not Detected (NotDetected); Parainfluenza Virus 2 PCR Not Detected (NotDetected); Parainfluenza Virus 3 PCR Not Detected (NotDetected); Parainfluenza Virus 4 PCR Not Detected (NotDetected); Respiratory Syncytial VirusPCR Not Detected (NotDetected); Rhinovirus/Enterovirus PCR Not Detected (NotDetected)
[2025-04-09] MEDS: cefTRIAXone SODIUM 2,000 MG/50 ML BAG IV STA (02:47)
--- NOTE | 2025-04-09 03:03 | XRay Report ---
EXAM: XR chest 1V portable CLINICAL HISTORY: Sepsis TECHNIQUE: A radiograph of the chest was acquired. 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 The cardiomediastinal silhouette is within normal limits. No acute osseous abnormality is identified. A central line is in place via the left side approach. IMPRESSION: 1. No acute cardiopulmonary disease. Stable. 2. Interval placement of central line. Electronically signed by Josep Romano 04-09-2025 03:03 AM
[2025-04-09] MEDS ORDERED: VANCOMYCIN CONSULT ACTIVE PRN (03:44)
[2025-04-09] MEDS: ACETAMINOPHEN 1,000 MG/100 ML VIAL IV STA (03:45)
--- NOTE | 2025-04-09 05:07 | History & Physical Report ---
Date of Service April 09, 2025 Assessment & Plan (1) Sepsis: Plan: 29-year-old female with past medical history significant for hypermobile Jaqui- Danlos syndrome, POTS, severe protein calorie malnutrition and GI dysmotility on chronic TPN since 2020, history of chronic nausea, history of recurrent CLABSI, bile reflux gastritis, chronic pain syndrome, CESILIA, history of Helicobacter pylori infection was recently in the hospital for sepsis and E. coli bacteremia and her catheter removed on 03/26/2025 and new Chao catheter Placed on 03/29/2025 again comes because of sepsis. Patient can eat little bit of food. She ate some tacos today.. After that she started feeling sick. She was tachycardic. Nauseous. And was having fevers. Some abdominal discomfort. In the ER she was tachycardic and hypotensive. Received fluid bolus and Rocephin. Currently nausea is improved. Still blood pressure somewhat on lower side. Lactic acid okay. Chest x-ray is okay. Has chronic cough. Respiratory BioFire negative. Currently denies any headache. Vision is okay. No runny nose or sore throat. No chest pain or shortness of breath. No abdominal pain currently. Somewhat constipated. Not micturated yet in the ER. Sepsis Recent E. coli bacteremia History of recurrent CLABSI New Chao catheter was placed on 03/29/2025 Received fluids and Rocephin in ER Will continue with IV fluids, place on IV Vanco and cefepime for now Will follow UA Will follow cultures Close monitor of hemodynamics Severe protein calorie malnutrition Gastrointestinal dysmotility and on chronic TPN therapy since 2020 Could not tolerate GJ tube and was removed Currently has G-tube to allow for gastric venting Consult pharmacy for TPN AST and alkaline phosphatase mildly elevated Follow repeat labs Chronic pain syndrome Follows with pain management through [facility] On baclofen and duloxetine Chronic nausea Continue home granisetron and Zyprexa As needed IV Zofran History of seasonal allergies On Singulair and loratadine Constipation On Linzess as needed GERD On Pepcid DVT prophylaxis Heparin subcu Disposition Telemetry Full code. History of Present Illness Chief Complaint: Sepsis Primary Care Provider: Meek Lopez MD 29-year-old female with past medical history significant for hypermobile Jaqui- Danlos syndrome, POTS, severe protein calorie malnutrition and GI dysmotility on chronic TPN since 2020, history of chronic nausea, history of recurrent CLABSI, bile reflux gastritis, chronic pain syndrome, CESILIA, history of Helicobacter pylori infection was recently in the hospital for sepsis and E. coli bacteremia and her catheter removed on 03/26/2025 and new Chao catheter Placed on 03/29/2025 again comes because of sepsis. Patient can eat little bit of food. She ate some tacos today.. After that she started feeling sick. She was tachycardic. Nauseous. And was having fevers. Some abdominal discomfort. In the ER she was tachycardic and hypotensive. Received fluid bolus and Rocephin. Currently nausea is improved. Still blood pressure somewhat on lower side. Lactic acid okay. Chest x-ray is okay. Has chronic cough. Respiratory BioFire negative. Currently denies any headache. Vision is okay. No runny nose or sore throat. No chest pain or shortness of breath. No abdominal pain currently. Somewhat constipated. Not micturated yet in the ER. Past medical history. As mentioned above. Past surgical history. EGD. EGD with biopsy. IR gastrointestinal ostomy. Mediport placement. Left knee arthroscopy. Replacement of gastrostomy tube. Tympanostomy tubes. Social history. No smoking. No alcohol use. No drug use. Family history. Patient is adopted. Allergies Allergy/AdvReac Type Severity Reaction Status Date / Time diphenhydramine Allergy Severe Urticaria, Verified 04/07/25 14:40 [From Benadryl] severe anxiety, jittery prochlorperazine Allergy Severe Anaphylaxis Verified 04/07/25 14:40 [From Compazine] adhesive Allergy Intermediate Redness, Verified 04/07/25 14:40 swelling gluten Allergy Intermediate Hives, GI Verified 04/07/25 14:40 upset peanut Allergy Intermediate Itchy Verified 04/07/25 14:40 throat tree nut Allergy Intermediate Itchy Verified 04/07/25 14:40 throat pollen extracts Allergy Mild Itchy Verified 04/07/25 14:40 eyes, sneezing, congestion chlorhexidine Allergy Unknown Unknown Verified 04/07/25 14:40 iron [From Venofer] AdvReac Severe Abdominal Verified 04/07/25 14:40 Pain Latex, Natural Rubber AdvReac Intermediate Redness, Verified 04/07/25 14:40 itchy Home Medications Medication Instructions Recorded Confirmed Type baclofen 10 mg tablet 10 mg PO BID 04/09/25 04/09/25 History cholecalciferol (vitamin D3) 1,250 1,250 mcg PO WK 04/09/25 04/09/25 History mcg (50,000 unit) tablet cyanocobalamin (vitamin B-12) 1,000 mcg IM MONTHLY 04/09/25 04/09/25 History 1,000 mcg/mL injection solution duloxetine 20 mg capsule,delayed 20 mg PO DAILY 04/09/25 04/09/25 History release famotidine 20 mg tablet 20 mg PO BID 04/09/25 04/09/25 History granisetron HCl 1 mg tablet 1 mg PO Q12H 04/09/25 04/09/25 History guaifenesin 600 mg tablet, 600 mg PO Q12H PRN Cough 04/09/25 04/09/25 History extended release 12 hr hydroxyzine HCl 10 mg tablet 50 mg PO QID PRN Anxiety 04/09/25 04/09/25 History linaclotide 145 mcg capsule 145 mcg PO DAILY PRN Constipation 04/09/25 04/09/25 History loratadine 10 mg tablet 10 mg PO DAILY 04/09/25 04/09/25 History montelukast 10 mg tablet 10 mg PO HS 04/09/25 04/09/25 History olanzapine 2.5 mg tablet 2.5 mg PO DAILY 04/09/25 04/09/25 History ondansetron 8 mg disintegrating 8 mg PO Q8H PRN Nausea And Vomiting 04/09/25 04/09/25 History tablet Past Med/Surg History Problem List (Updated 04/09/25 @ 06:00 by Afua Rashid MD) Sepsis (Acute) Pneumonitis (Acute) Acute dehydration (Acute) Severe protein-calorie malnutrition (Acute) History of central line-associated bloodstream infection (CLABSI) Bacteremia due to methicillin resistant Staphylococcus epidermidis Infection of venous access port (Acute) Sepsis (Acute) MSSA bacteremia Infection complicating venous access device Bacterial sepsis CLABSI (central line-associated bloodstream infection) Cellulitis (Acute) Bacteremia due to Enterococcus Sepsis Tachycardia (Acute) Central venous catheter in place broke- clamped in ER, taped around site Fungemia DVT prophylaxis Encounter for pre-operative examination (~02/07/23) Gastrointestinal dysmotility Close exposure to COVID-19 virus (Acute) Iron deficiency (Acute) Symptomatic anemia (Acute) Chronic pain POTS (postural orthostatic tachycardia syndrome) History of esophagogastroduodenoscopy (EGD) Severe malnutrition (Acute) Abdominal pain, chronic, epigastric (Acute) chronic On total parenteral nutrition (TPN) Jaqui-Danlos disease Dx several years ago Medical History Anxiety Gastrointestinal dysmotility Reactive hypoglycemia dexcom present to left arm Anemia Neuropathy legs Gastroparesis History of COVID-19 02/2022, not hospitalized 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 Jejunostomy tube present placed October 2020 Surgical History History of removal of Port-a-Cath (05/21/24) Infusaport Removal - Left side(Left) - Alton Garcia DO, FACS History of myringotomy History of surgery (06/24/21) Removal of Right Tunneled Central Line in Internal Jugular Catheter H/O wisdom tooth extraction H/O wrist surgery right S/P knee surgery Left Family History Other Adopted Social History Smoking Status: Never smoker Second Hand Exposure: No; Do You Dip or Chew Tobacco: No; Hx Alcohol Use: No Hx Substance Use: No Preferred Language: Sami Communication Ability: Effective Division Merchandise Manager Required: No Beliefs That Will Affect Care: None Current Living Situation: Parent Current Living Situation Comment: Lives w/ family at home Feels Safe at Home: Yes Assistive Devices: None Review of Systems Review of Systems: All systems reviewed & are unremarkable except as noted in HPI & below Physical Exam Physical Exam: General- Not in distress Head- atraumatic Eyes- PERRL. ENT- oropharynx clear Neck- supple, no JVD Lungs- clear to auscultation no wheezing or crackles Heart- regular rhythm; Tachycardia ,no murmur, no gallop. Abdomen- normal bowel sounds, soft, nontender, no distension. G tube site no drainage or erythema seen Extremities- no pretibial edema, no erythema seen Neuro- alert, oriented PERRL, no facial palsy; no dysarthria; moves extremities Skin- Left side chest Chao cath site no erythema or drainage seen Results & Data Results & Data Vital Signs (Past 12 Hours) Vital Signs Temp Pulse Pulse Resp BP BP Pulse Ox 04/09/25 04:55 126 H 04/09/25 04:14 37.4 C 129 H 16 84/57 L 98 04/09/25 03:30 132 H 20 86/59 L 97 04/09/25 02:48 38 C H 139 H 22 109/72 98 04/09/25 02:00 130 H 20 106/65 98 04/09/25 01:32 99 04/09/25 01:30 134 H 21 84/70 L 99 04/09/25 01:03 138 H 04/09/25 00:51 38.2 C H 154 H 108/70 96 O2 Del Method 04/09/25 04:55 04/09/25 04:14 Room Air 04/09/25 03:30 Room Air 04/09/25 02:48 Room Air 04/09/25 02:00 Room Air 04/09/25 01:32 Room Air 04/09/25 01:30 Room Air 04/09/25 01:03 04/09/25 00:51 Room Air Diagnostic Findings Laboratory Results WBC 10.72 K/ul (4.8-10.8) 04/09/25 01:17 RBC 4.26 M/uL (4.20-5.40) 04/09/25 01:17 Hgb 11.9 g/dl (12.0-16.0) L 04/09/25 01:17 Hct 36.6 % (37.0-47.0) L 04/09/25 01:17 MCV 85.9 fL (80.0-100.0) 04/09/25 01:17 MCH 27.9 pg (25.0-34.0) 04/09/25 01:17 MCHC 32.5 g/dL (32.0-36.0) 04/09/25 01:17 RDW Std Deviation 43.9 fL (36.4-46.3) 04/09/25 01:17 RDW Coeff of Priscilla 14.2 % (11.5-14.5) 04/09/25 01:17 Plt Count 419 K/uL (130-400) H 04/09/25 01:17 MPV 8.7 fL (9.4-12.4) L 04/09/25 01:17 Immature Gran % (Auto) 0.5 % 04/09/25 01:17 Neut % (Auto) 91.2 % 04/09/25 01:17 Lymph % (Auto) 7.2 % 04/09/25 01:17 Dickson % (Auto) 0.4 % 04/09/25 01:17 Eos % (Auto) 0.4 % 04/09/25 01:17 Baso % (Auto) 0.3 % 04/09/25 01:17 Neut # (Auto) 9.79 K/uL (1.40-6.50) H 04/09/25 01:17 Lymph # (Auto) 0.77 K/uL (1.20-3.40) L 04/09/25 01:17 Dickson # (Auto) 0.04 K/uL (0.11-0.59) L 04/09/25 01:17 Eos # (Auto) 0.04 K/uL (0.00-0.50) 04/09/25 01:17 Baso # (Auto) 0.03 K/uL (0.00-0.20) 04/09/25 01:17 Immature Gran # (Auto) 0.05 K/uL (0.01-0.20) 04/09/25 01:17 Polychromasia 1+ 04/09/25 01:17 Ovalocytes 1+ 04/09/25 01:17 Sodium 138 mmol/L (136-145) 04/09/25 01:17 Potassium 3.5 mmol/L (3.5-5.1) 04/09/25 01:17 Chloride 105 mmol/L (98-107) 04/09/25 01:17 Carbon Dioxide 26 mmol/L (21-32) 04/09/25 01:17 Anion Gap 7 (3-11) 04/09/25 01:17 BUN 16 mg/dl (6-23) 04/09/25 01:17 Creatinine 0.73 mg/dl (0.6-1.2) 04/09/25 01:17 Est Cr Clr Drug Dosing 83.9 ml/min 04/09/25 01:17 eGFR 115.52 04/09/25 01:17 BUN/Creatinine Ratio 21.9 (10-20) H 04/09/25 01:17 Glucose 96 mg/dl (70-99(Fasting)) 04/09/25 01:17 Lactate 1.5 mmol/L (0.4-2.0) 04/09/25 01:17 Calcium 9.2 mg/dl (8.6-10.3) 04/09/25 01:17 Magnesium 2.0 mg/dl (1.7-2.4) 04/09/25 01:17 Total Bilirubin 0.6 mg/dl (0.2-1.0) 04/09/25 01:17 Direct Bilirubin 0.2 mg/dl (0-0.2) 04/09/25 01:17 AST 48 U/L (13-39) H 04/09/25 01:17 ALT 33 U/L (7-52) 04/09/25 01:17 Alkaline Phosphatase 123 U/L (34-104) H 04/09/25 01:17 Troponin I High Sens 5.0 pg/ml (0-14) 04/09/25 01:17 Total Protein 7.5 gm/dl (6.0-8.3) 04/09/25 01:17 Albumin 4.4 gm/dl (3.4-5.0) 04/09/25 01:17 Procalcitonin 0.37 ng/ml (0-0.5) 04/09/25 01:17 Adenovirus (PCR) Not Detected (NotDetected) 04/09/25 01:10 B. pertussis DNA (PCR) Not Detected (NotDetected) 04/09/25 01:10 B.parapertussis DNA PCR Not Detected (NotDetected) 04/09/25 01:10 C. pneumoniae DNA (PCR) Not Detected (NotDetected) 04/09/25 01:10 Coronavirus OC43 (PCR) Not Detected (NotDetected) 04/09/25 01:10 Coronavirus HKU1 (PCR) Not Detected (NotDetected) 04/09/25 01:10 Coronavirus 229E (PCR) Not Detected (NotDetected) 04/09/25 01:10 SARS-CoV-2 (PCR) Not Detected (NotDetected) 04/09/25 01:10 Coronavirus NL63 (PCR) Not Detected (NotDetected) 04/09/25 01:10 Human Metapneumovir PCR Not Detected (NotDetected) 04/09/25 01:10 Influenza Type A (PCR) Not Detected (NotDetected) 04/09/25 01:10 Influenza Type B (PCR) Not Detected (NotDetected) 04/09/25 01:10 M. pneumoniae (PCR) Not Detected (NotDetected) 04/09/25 01:10 Parainfluenza 1 (PCR) Not Detected (NotDetected) 04/09/25 01:10 Parainfluenza 2 (PCR) Not Detected (NotDetected) 04/09/25 01:10 Parainfluenza 3 (PCR) Not Detected (NotDetected) 04/09/25 01:10 Parainfluenza 4 (PCR) Not Detected (NotDetected) 04/09/25 01:10 RSV (PCR) Not Detected (NotDetected) 04/09/25 01:10 Entero/Rhino (PCR) Not Detected (NotDetected) 04/09/25 01:10 Impressions Chest X-Ray 04/09/25 01:01 EXAM: XR chest 1V portable CLINICAL HISTORY: Sepsis TECHNIQUE: A radiograph of the chest was acquired. COMPARISON: CHUY, 03/29/2025 15:01:00 REMOTE RUBY ON RAILS DEVELOPER FINDINGS: The lungs are clear and well expanded with no pulmonary infiltrate or pleural effusion. The cardiomediastinal silhouette is within normal limits. No acute osseous abnormality is identified. A central line is in place via the left side approach. IMPRESSION: 1. No acute cardiopulmonary disease. Stable. 2. Interval placement of central line. Electronically signed by Josep Romano 04-09-2025 03:03 AM ECG Additional Comments: ECG. Sinus tachycardia rate of 140. QTc 418 Code Status & VTE Plan VTE Prophylaxis Plan VTE Prophylaxis will be ordered: Yes
[2025-04-09] MEDS ORDERED: ACETAMINOPHEN 325 MG TAB PO PRN (05:13)
[2025-04-09] MEDS ORDERED: POLYETHYLENE (MIRALAX) 17 GM PACK PO PRN (05:13)
[2025-04-09] MEDS: VANCOMYCIN HCL / NSS 1,000 MG/270 ML BAG IV ONE (05:32)
[2025-04-09] MEDS: SODIUM CHLORIDE 0.9% 500 ML IV ONE (05:32)
[2025-04-09] MEDS ORDERED: TPN/PPN CONSULT PHARMACY PRN (05:48)
[2025-04-09] MEDS ORDERED: LINACLOTIDE 145 MCG CAPSULE PO PRN (05:49)
[2025-04-09] MEDS ORDERED: guaiFENesin 600 MG TABCR PO PRN (05:49)
[2025-04-09] MEDS: SODIUM CHLORIDE 0.9% 1,000 ML IV SCH (06:14)
--- NOTE | 2025-04-09 06:18 | Electrocardiogram Report ---
Test Reason : Blood Pressure : */* mmHG Vent. Rate : 140 BPM Atrial Rate : 140 BPM P-R Int : 136 ms QRS Dur : 70 ms QT Int : 274 ms P-R-T Axes : 65 80 45 degrees QTcB Int : 418 ms Sinus tachycardia Anterior infarct , age undetermined Abnormal ECG When compared with ECG of 24-Mar-2025 15:21, Anterior infarct is now Present T wave inversion no longer evident in Inferior leads Confirmed by Rocco Ayers ([id number]) on 04/09/2025 6:18:07 AM Referred By: REFERRED SELF Confirmed By: Rocco Ayers
[2025-04-09 07:31] LABS: Appearance Urine Clear (Clear); Glucose Urine UA Negative (Negative)
[2025-04-09 08:09] LABS: Hematocrit (blood only) 31.4 % (37.0-47.0); Hemoglobin 10.1 g/dl (12.0-16.0); Mean Corpuscular Hemoglobin 28.0 pg (25.0-34.0); Mean Corpuscular Volume 87.0 fL (80.0-100.0); Platelet Count 351 K/uL (130-400); RDW Standard Deviation 45.2 fL (36.4-46.3); Red Blood Count 3.61 M/uL (4.20-5.40); White Blood Count 7.90 K/ul (4.8-10.8)
[2025-04-09] MEDS: CEFEPIME 2000MG 2,000 MG/20 ML SYR IV SCH (08:13)
[2025-04-09 08:25] LABS: Anion Gap 5.0 (3-11); Blood Urea Nitrogen 10.0 mg/dl (6-23); Calcium 7.6 mg/dl (8.6-10.3); Carbon Dioxide 21.0 mmol/L (21-32); Chloride 113.0 mmol/L (98-107); Creatinine Clr Calc Pharmacy 120.1 ml/min; Glucose 106.0 mg/dl (70-99(Fasting)); Magnesium 1.6 mg/dl (1.7-2.4); Potassium 3.6 mmol/L (3.5-5.1); Sodium 139.0 mmol/L (136-145)
[2025-04-09] MEDS: LORATADINE 10 MG TAB PO SCH (08:36)
[2025-04-09] MEDS: OLANZAPINE 2.5 MG TAB PO SCH (08:36)
[2025-04-09] MEDS: BACLOFEN 10 MG TAB PO SCH (08:36)
[2025-04-09] MEDS: FAMOTIDINE 20 MG TAB PO SCH (08:38)
[2025-04-09] MEDS: HEPARIN SOD 5,000 UNIT/0.5 ML VIAL SQ SCH (08:38)
[2025-04-09 08:44] LABS: Immature Granulocytes # (auto) 0.03 K/uL (0.01-0.20); Immature Granulocytes % (auto) 0.4 %
[2025-04-09] MEDS: ONDANSETRON INJ 2 MG/ML 2 ML VIAL IV PRN (09:50)
[2025-04-09 09:57] LABS: A calco-baum cmplx NotReported Not Detected (NotDetected); Bact fragilis Not Reported Not Detected (NotDetected); Blood Culture Id Panel See PCR Comment (NotDetected); C auris Not Reported Not Detected (NotDetected); CTX-M Resistant Gene Not Detected (NotDetected); Calbicans Not Reported Not Detected (NotDetected); Candida glabrata Not Reported Not Detected (NotDetected); Candida krusei Not Reported Not Detected (NotDetected); Cneoformans/gatti Not Reported Not Detected (NotDetected); Cparapsilosis Not Reported Not Detected (NotDetected); Ctropicalis Not Reported Not Detected (NotDetected); E cloacae compx Not Reported Not Detected (NotDetected); Efaecalis Not Reported Not Detected (NotDetected); Efaecium Not Reported Not Detected (NotDetected); Enterobacterales Not Reported DETECTED (NotDetected); Escherichia coli Not Reported DETECTED (NotDetected); H influenzae Not Reported Not Detected (NotDetected); IMP Resistant Gene Not Detected (NotDetected); K aerogenes Not Reported Not Detected (NotDetected); KPC Resistant Gene Not Detected (NotDetected); Koxytoca Not Reported Not Detected (NotDetected); Kpneumoniae grp Not Reported Not Detected (NotDetected); Lmonocyt Not Reported Not Detected (NotDetected); N meningitidis Not Reported Not Detected (NotDetected); NDM Resistant Gene Not Detected (NotDetected); OXA 48 Like Resistant Gene Not Detected (NotDetected); P aeruginosa Not Reported Not Detected (NotDetected); Proteus spp Not Reported Not Detected (NotDetected); Salmonella spp Not Reported Not Detected (NotDetected); Staph lugdunensis Not Reported Not Detected (NotDetected); Staph spp. Not Reported Not Detected (NotDetected); Staphaureus Not Reported Not Detected (NotDetected); Staphepi Not Reported Not Detected (NotDetected); Stenmaltophilia Not Reported Not Detected (NotDetected); Strep agal(GrpB) Not Reported Not Detected (NotDetected); Strep pneum Not Reported Not Detected (NotDetected); Strep pyog (GrpA) Not Reported Not Detected (NotDetected); Strep spp Not Reported Not Detected (NotDetected); VIM Resistant Gene Not Detected (NotDetected); mcr-1 Colistin Resistant Gene Not Detected (NotDetected)
[2025-04-09 10:04] LABS: Enterobacterales DETECTED (NotDetected)
[2025-04-09] MEDS: CALCIUM GLUCONATE 1,000 MG/60 ML BAG IV STA (10:35)
[2025-04-09] MEDS ORDERED: TPN/PPN CONSULT PHARMACY STA (10:45)
--- NOTE | 2025-04-09 10:46 | Pharmacy Report ---
Pharmacy PK ABX Note - Date of Service April 09, 2025 - Assessment and Plan Assessment 29 year old F receiving vancomycin and cefepime for empiric treatment in setting of sepsis. Blood cultures (+) GNB in 2/2 (second bottle pending). Blood biofire (+) E.coli with no resistance genes. Renal function stable. Day # 1 of antimicrobial therapy. Plan Vancomycin * Maintenance dose: 1000 mg IV every 8 hours * Regimen is predicted to achieve target AUC/BRITT of 400-600 mg/L.hr * Trough level tomorrow AM Pharmacy will continue to follow and will adjust dose/frequency as necessary. Thank you. Pharmacy has transitioned to AUC monitoring for vancomycin. AUC/BRITT is the preferred PK/PD target and is associated with decreased risk of nephrotoxicity compared to traditional trough targets.
[2025-04-09] MEDS: OPTIRAY 320 100ml IV ONE (10:52)
[2025-04-09] MEDS ORDERED: ACETAMINOPHEN 500 MG TAB PO PRN (11:13)
[2025-04-09] MEDS ORDERED: ACETAMINOPHEN 1,000 MG/100 ML VIAL IV PRN (11:21)
--- NOTE | 2025-04-09 11:29 | CT Scan Report ---
EXAM: CT Abdomen and Pelvis With Intravenous Contrast INDICATION: Searching for infection source. TECHNIQUE: Axial computed tomography images of the abdomen and pelvis with intravenous contrast. Sagittal and coronal reformatted images were created and reviewed. This CT exam was performed using one or more of the following dose reduction techniques: automated exposure control, adjustment of the mA and/or kV according to patient size, and/or use of iterative reconstruction technique. CONTRAST: 94 ml of Optiray 320 was administered intravenously. COMPARISON: 02/18/2025 FINDINGS: Limitations: None. Lung bases: No abnormality noted. Pleural space: No visualized pleural effusion or pneumothorax. Heart: No abnormality noted. Mediastinum: No abnormality noted. ABDOMEN: Liver: No abnormality noted. Gallbladder and bile ducts: Largely collapsed. No calcified stones or surrounding fluid. No ductal dilation. Pancreas: Homogeneous enhancement. No mass, inflammation or ductal dilation. Spleen: No significant abnormality noted. Adrenals: No significant abnormality noted. Kidneys and ureters: Normal enhancement. No mass, hydronephrosis or visualized stone. Stomach and bowel: Gastrostomy balloon inflated in the gastric body. No fluid along the tract. Moderate amounts of formed stool in the colon. No obstruction. No inflammatory process noted. PELVIS: Appendix: No findings to suggest acute appendicitis. Bladder: No filling defects to suggest mass or large stone. No inflammation. Reproductive: Stable large right adnexal cyst likely ovarian measuring 7.5 x 6.4 x 5.8 cm. There is a dominant follicle left ovary measuring 1.7 cm. ABDOMEN and PELVIS: Intraperitoneal space: No free air. No significant fluid collection. Bones/joints: No acute changes. Soft tissues: No significant abnormality noted. Vasculature: No abdominal aortic aneurysm. Lymph nodes: No pathologically enlarged lymph nodes. IMPRESSION: 1. No intra-abdominal or pelvic inflammatory process or obstruction noted. 2. Stable large right ovarian cyst. Cyst of this size can predispose the ovary to torsion. ACT 112: N/A Electronically signed by Latoya Matias 04-09-2025 11:27 AM
--- NOTE | 2025-04-09 11:33 | Communication Note ---
Patient seen and examined at bedside. Mother is present as well. Patient not doing well today. States she is having fevers and chills. Has been having nausea, vomiting, chills, headache, some cough. On exam, small body habitus, mild tenderness to palpation around Chao catheter site with mild erythema noted, chronic abdominal pain noted, no cough noted. Shivering on exam. No leukocytosis noted, creatinine at baseline, mg of 1.6 replenished, calcium 7.6 and replenished, tachycardic and febrile. Patient presenting with sepsis 2/2 gram negative bacteremia, presumed E. coli. Likely source is line, however, placed 1 week ago. Rule out alternative sources including abdomen/pelvis, and if that negative CT chest. Unfortunately, given sepsis, line will likely need removed and replaced. Given recurrence, will need ID consult likely on Friday. Continue fluids and broad spectrum abx for now pending speciation of cultures. Hold TPN in setting of bacteremia. Date of Service: April 09, 2025
[2025-04-09] MEDS: MAGNESIUM SULFATE / D5W 1 GM/100 ML BAG IV SCH (12:00)
[2025-04-09] MEDS: ACETAMINOPHEN 1000 MG/100 ML IV IV ONE (12:00)
[2025-04-09] MEDS: VANCOMYCIN HCL / NSS 1,000 MG/270 ML BAG IV SCH (12:33)
[2025-04-09] MEDS: OPTIRAY 320 125ml IV ONE (14:30)
--- NOTE | 2025-04-09 15:22 | CT Scan Report ---
EXAM: CT Chest With Intravenous Contrast INDICATION: Assess for infection. TECHNIQUE: Axial computed tomography images of the chest with intravenous contrast. Sagittal and coronal reformatted images were created and reviewed. This CT exam was performed using one or more of the following dose reduction techniques: automated exposure control, adjustment of the mA and/or kV according to patient size, and/or use of iterative reconstruction technique. COMPARISON: No relevant prior studies available. FINDINGS: Limitations: None. Lungs and pleural spaces: No abnormality noted. No mass. No consolidation. No significant effusion. No pneumothorax. Heart: No abnormality noted. Thyroid: No abnormality noted. Bones/joints: No acute changes. Soft tissues: No significant abnormality noted. Vasculature: No abnormality noted. No thoracic aortic aneurysm. Lymph nodes: No enlarged lymph nodes. IMPRESSION: No abnormality noted. ACT 112: N/A Electronically signed by Latoya Matias 04-09-2025 3:22 PM
[2025-04-09] MEDS: LACTATED RINGER'S 1,000 ML IV SCH (16:23)
[2025-04-09] MEDS: MONTELUKAST SODIUM 10 MG TABLET PO SCH (20:30)
[2025-04-09] MEDS: ACETAMINOPHEN 10MG/ML Custom 650 MG in EMPTY BAG 0 ML IV PRN (21:54)
--- NOTE | 2025-04-10 09:28 | Anesthesiology Consultation ---
Date of Service April 10, 2025 Assessment & Plan Chart Review Chart Review: Acceptable Risk for Surgery and Patient NOT seen in Pre Admission Testing Consults Requested none ASA [id number] Proposed Anesthesia Anesthesia Type: MAC History Surgery Operation Date: 04/10/25 10:00 Proposed Procedures p Removal of Chao Catheter - Tarik Kerns DO Height/Weight Height: 5 ft 3 in Weight: 56.6 kg Allergies Allergy/AdvReac Type Severity Reaction Status Date / Time diphenhydramine Allergy Severe Urticaria, Verified 04/07/25 14:40 [From Benadryl] severe anxiety, jittery prochlorperazine Allergy Severe Anaphylaxis Verified 04/07/25 14:40 [From Compazine] adhesive Allergy Intermediate Redness, Verified 04/07/25 14:40 swelling gluten Allergy Intermediate Hives, GI Verified 04/07/25 14:40 upset peanut Allergy Intermediate Itchy Verified 04/07/25 14:40 throat tree nut Allergy Intermediate Itchy Verified 04/07/25 14:40 throat pollen extracts Allergy Mild Itchy Verified 04/07/25 14:40 eyes, sneezing, congestion chlorhexidine Allergy Unknown Unknown Verified 04/07/25 14:40 iron [From Venofer] AdvReac Severe Abdominal Verified 04/07/25 14:40 Pain Latex, Natural Rubber AdvReac Intermediate Redness, Verified 04/07/25 14:40 itchy Medications Home Medications Medication Instructions Recorded Confirmed Last Taken baclofen 10 mg tablet 10 mg PO BID 04/09/25 04/09/25 Unknown cholecalciferol (vitamin D3) 1,250 1,250 mcg PO WK 04/09/25 04/09/25 Unknown mcg (50,000 unit) tablet cyanocobalamin (vitamin B-12) 1,000 mcg IM MONTHLY 04/09/25 04/09/25 Unknown 1,000 mcg/mL injection solution duloxetine 20 mg capsule,delayed 20 mg PO DAILY 04/09/25 04/09/25 Unknown release famotidine 20 mg tablet 20 mg PO BID 04/09/25 04/09/25 Unknown granisetron HCl 1 mg tablet 1 mg PO Q12H 04/09/25 04/09/25 Unknown guaifenesin 600 mg tablet, 600 mg PO Q12H PRN Cough 04/09/25 04/09/25 Unknown extended release 12 hr hydroxyzine HCl 10 mg tablet 50 mg PO QID PRN Anxiety 04/09/25 04/09/25 Unknown linaclotide 145 mcg capsule 145 mcg PO DAILY PRN Constipation 04/09/25 04/09/25 Unknown loratadine 10 mg tablet 10 mg PO DAILY 04/09/25 04/09/25 Unknown montelukast 10 mg tablet 10 mg PO HS 04/09/25 04/09/25 Unknown olanzapine 2.5 mg tablet 2.5 mg PO DAILY 04/09/25 04/09/25 Unknown ondansetron 8 mg disintegrating 8 mg PO Q8H PRN Nausea And Vomiting 04/09/25 04/09/25 Unknown tablet Active Medications Generic Name Dose Route Start Last Admin Trade Name Freq PRN Reason Stop Dose Admin Baclofen 10 mg 04/09/25 09:00 04/10/25 08:36 Baclofen 10 Mg Tab PO 05/09/25 08:59 10 mg BID ZULY Administration Duloxetine HCl 20 mg 04/09/25 09:00 04/10/25 08:28 Duloxetine Hcl 20 Mg Cap PO 05/09/25 08:59 20 mg DAILY ZULY Administration Famotidine 20 mg 04/09/25 09:00 04/10/25 08:36 Famotidine 20 Mg Tab PO 05/09/25 08:59 20 mg BID ZULY Administration Heparin Sodium (Porcine) 5,000 units 04/09/25 09:00 04/10/25 08:36 Heparin Sod 5,000 Unit/0.5 Ml Vial SQ 05/09/25 08:59 5,000 units Q12 ZULY Administration Cefepime HCl 2,000 mg in 20 mls @ 5 mls/min 04/09/25 08:00 04/10/25 08:27 Maxipime 2000mg IV 04/16/25 07:59 5 mls/min Q8H ZULY Administration Protocol Acetaminophen 650 mg/ EMPTY 65 mls @ 260 mls/hr 04/09/25 11:52 04/09/25 22:14 BAG IV 05/09/25 11:51 Infused Q8H PRN Infusion Pain/Fever Protocol Lactated Ringer's 1,000 mls @ 100 mls/hr 04/09/25 16:00 04/10/25 02:29 Lr IV 04/12/25 15:59 100 mls/hr .Q10H ZULY Administration Loratadine 10 mg 04/09/25 09:00 04/10/25 08:28 Loratadine 10 Mg Tab PO 05/09/25 08:59 10 mg DAILY ZULY Administration Montelukast Sodium 10 mg 04/09/25 21:00 04/09/25 20:30 Montelukast Sodium 10 Mg Tablet PO 05/09/25 20:59 10 mg HS ZULY Administration Olanzapine 2.5 mg 04/09/25 09:00 04/10/25 08:28 Olanzapine 2.5 Mg Tab PO 05/09/25 08:59 2.5 mg DAILY ZULY Administration Ondansetron HCl 4 mg 04/09/25 05:13 04/09/25 20:39 Ondansetron Inj 2 Mg/Ml 2 Ml Vial IV 05/09/25 05:12 4 mg Q6H PRN Administration Nausea Past Medical History Medical History Anxiety Gastrointestinal dysmotility Reactive hypoglycemia dexcom present to left arm Anemia Neuropathy legs Gastroparesis History of COVID-19 02/2022, not hospitalized 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 Jejunostomy tube present placed October 2020 Postural orthostatic tachycardia syndrome malnutrition Fe deficiency sepsis Hx/o CLABSI Chronic pain Jaqui Danlos Syn. Exercise / Class Metabolic Activity II 4-5 Yardwork/Stairs/Walk up hill Past Family History Family History Other Adopted Past Surgical History Surgical History History of removal of Port-a-Cath (05/21/24) Infusaport Removal - Left side(Left) - Alton Garcia, , FACS History of myringotomy History of surgery (06/24/21) Removal of Right Tunneled Central Line in Internal Jugular Catheter H/O wisdom tooth extraction H/O wrist surgery right S/P knee surgery Left Past Anesthesia History No Hx of Anesthesia Complications and No Family Hx of Anesthesia Complications History of PONV No Hx of PONV and No Hx of Motion Sickness Social History Smoking Status: Never smoker Do You Dip or Chew Tobacco: No Hx Alcohol Use: No Alcohol type: hard liquor alcohol intake frequency: holidays/special occasions only Hx Substance Use: No substance use type: does not use Physical Exam Vital Signs Last Vital Signs Temp 37.4 C 04/10/25 08:12 Pulse 108 H 04/10/25 08:12 Resp 17 04/10/25 08:12 BP 100/65 04/10/25 08:12 Pulse Ox 94 04/10/25 08:12 O2 Del Method Room Air 04/10/25 08:12 Testing Laboratory Results 04/09/25 07:32 04/09/25 07:32 Urine Color Yellow 04/09/25 07:20 Urine Appearance Clear (Clear) 04/09/25 07:20 Urine pH 6.0 (4.5-7.5) 04/09/25 07:20 Ur Specific [place] 1.020 (1.000-1.030) 04/09/25 07:20 Urine Protein Negative (Negative) 04/09/25 07:20 Urine Glucose (UA) Negative (Negative) 04/09/25 07:20 Urine Ketones 1+ (Negative) H 04/09/25 07:20 Urine Nitrite Negative (Negative) 04/09/25 07:20 Ur Leukocyte Esterase Negative (Negative) 04/09/25 07:20 04/09/25 01:17 Aerobic Blood Culture - Preliminary Blood No growth in Aerobic bottle after 24 hours. Anaerobic Blood Culture - Preliminary No growth in Anaerobic bottle after 24 hours. 04/09/25 01:27 Aerobic Blood Culture - Preliminary Blood Gram negative bacilli Anaerobic Blood Culture - Preliminary Gram negative bacilli Electrocardiogram Date: 04/09/25 Findings: + ST @ (@ 140;? anter. infarct,age ?) Chest X-Ray Date: 04/09/25 Findings: + NAD Echocardiogram Date: 03/26/25 EF: 55% LV Function: normal RWMA: + none Valvular Disease: + no significant valvular disease no evidence of endocarditis
[2025-04-10 10:38] LABS: Hematocrit (blood only) 30.7 % (37.0-47.0); Hemoglobin 9.7 g/dl (12.0-16.0); Mean Corpuscular Hemoglobin 28.0 pg (25.0-34.0); Mean Corpuscular Volume 88.5 fL (80.0-100.0); Platelet Count 264 K/uL (130-400); RDW Standard Deviation 45.6 fL (36.4-46.3); Red Blood Count 3.47 M/uL (4.20-5.40); White Blood Count 4.30 K/ul (4.8-10.8)
[2025-04-10 10:57] LABS: Alanine Aminotransferase 67.0 U/L (7-52); Albumin Globulin Ratio 1.1 (0.9-2); Albumin Level 3.1 gm/dl (3.4-5.0); Alkaline Phosphatase 119.0 U/L (34-104); Anion Gap 10.0 (3-11); Bilirubin,Total 0.6 mg/dl (0.2-1.0); Blood Urea Nitrogen 6.0 mg/dl (6-23); Calcium 8.3 mg/dl (8.6-10.3); Carbon Dioxide 17.0 mmol/L (21-32); Chloride 109.0 mmol/L (98-107); Creatinine Clr Calc Pharmacy 116.5 ml/min; Globulin 2.7 gm/dl (2.5-4.0); Glucose 65.0 mg/dl (70-99(Fasting)); Magnesium 2.0 mg/dl (1.7-2.4); Potassium 3.5 mmol/L (3.5-5.1); Sodium 136.0 mmol/L (136-145); Total Protein 5.8 gm/dl (6.0-8.3)
[2025-04-10] MEDS ORDERED: PROPOFOL IV EMULSION 10 MG/ML 20 ML VIAL IV ONE (11:11)
[2025-04-10] MEDS ORDERED: MIDAZOLAM HCL 1 MG/ML 2ML VIAL ONE (11:11)
[2025-04-10 11:28] LABS: Immature Granulocytes # (auto) 0.01 K/uL (0.01-0.20); Immature Granulocytes % (auto) 0.2 %
--- NOTE | 2025-04-10 11:32 | Surgery Consultation ---
Date of Consultation April 10, 2025 Assessment & Plan (1) Sepsis: (2) History of central line-associated bloodstream infection (CLABSI): Plan It has been requested that this catheter be removed. I discussed this with the patient, she agrees. The procedure was explained, she had no questions as she has been through this before. Consent has been obtained. She is NPO and on IV abx History of Present Illness Attending Physician: Jose Cruz Farias MD History of Present Illness 29F Pt with suspected line sepsis who has had multiple CLABSIs in the past requiring a number of line insertions and retrievals. She has a PMHx Jaqui Danlos syndrome, POT, severe protein calorie malnutrition and GI dysmotility, chronic GI dysmotility (on chronic TPN with recurrent CLABSI) resulting in severe protein calorie malnutrition, hypermobile EDS, POTS, chronic nausea, chronic pain syndrome, bile reflux gastritis, CESILIA, history of H. pylori infection. She was just discharged from the hospital on 03/29/25 where she had been treated for line infection of a previously placed right IJ tunneled catheter which was removed and a left IJ introduced Chao catheter was placed by Dr. Espana on 03/29/25. She re-presented to the ED on presented to the ED on 04/09/25 with nausea, fever and pain. She had tachycardia and hypotension. She has been admitted to the medical service on IV abx and a request has been made to remove her Chao catheter. Allergies Allergy/AdvReac Type Severity Reaction Status Date / Time diphenhydramine Allergy Severe Urticaria, Verified 04/07/25 14:40 [From Benadryl] severe anxiety, jittery prochlorperazine Allergy Severe Anaphylaxis Verified 04/07/25 14:40 [From Compazine] adhesive Allergy Intermediate Redness, Verified 04/07/25 14:40 swelling gluten Allergy Intermediate Hives, GI Verified 04/07/25 14:40 upset peanut Allergy Intermediate Itchy Verified 04/07/25 14:40 throat tree nut Allergy Intermediate Itchy Verified 04/07/25 14:40 throat pollen extracts Allergy Mild Itchy Verified 04/07/25 14:40 eyes, sneezing, congestion chlorhexidine Allergy Unknown Unknown Verified 04/07/25 14:40 iron [From Venofer] AdvReac Severe Abdominal Verified 04/07/25 14:40 Pain Latex, Natural Rubber AdvReac Intermediate Redness, Verified 04/07/25 14:40 itchy Home Medications Medication Instructions Recorded Confirmed Type baclofen 10 mg tablet 10 mg PO BID 04/09/25 04/09/25 History cholecalciferol (vitamin D3) 1,250 1,250 mcg PO WK 04/09/25 04/09/25 History mcg (50,000 unit) tablet cyanocobalamin (vitamin B-12) 1,000 mcg IM MONTHLY 04/09/25 04/09/25 History 1,000 mcg/mL injection solution duloxetine 20 mg capsule,delayed 20 mg PO DAILY 04/09/25 04/09/25 History release famotidine 20 mg tablet 20 mg PO BID 04/09/25 04/09/25 History granisetron HCl 1 mg tablet 1 mg PO Q12H 04/09/25 04/09/25 History guaifenesin 600 mg tablet, 600 mg PO Q12H PRN Cough 04/09/25 04/09/25 History extended release 12 hr hydroxyzine HCl 10 mg tablet 50 mg PO QID PRN Anxiety 04/09/25 04/09/25 History linaclotide 145 mcg capsule 145 mcg PO DAILY PRN Constipation 04/09/25 04/09/25 History loratadine 10 mg tablet 10 mg PO DAILY 04/09/25 04/09/25 History montelukast 10 mg tablet 10 mg PO HS 04/09/25 04/09/25 History olanzapine 2.5 mg tablet 2.5 mg PO DAILY 04/09/25 04/09/25 History ondansetron 8 mg disintegrating 8 mg PO Q8H PRN Nausea And Vomiting 04/09/25 04/09/25 History tablet Patient History Medical History Anxiety Gastrointestinal dysmotility Reactive hypoglycemia dexcom present to left arm Anemia Neuropathy legs Gastroparesis History of COVID-19 02/2022, not hospitalized 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 Jejunostomy tube present placed October 2020 Surgical History History of removal of Port-a-Cath (05/21/24) Infusaport Removal - Left side(Left) - Alton Garcia DO, FACS History of myringotomy History of surgery (06/24/21) Removal of Right Tunneled Central Line in Internal Jugular Catheter H/O wisdom tooth extraction H/O wrist surgery right S/P knee surgery Left Family History Other Adopted Social History Smoking Status: Never smoker Second Hand Exposure: No; Do You Dip or Chew Tobacco: No; Hx Alcohol Use: No Hx Substance Use: No Preferred Language: Turkish Communication Ability: Effective Hospice Care Sales Consultant Required: No Beliefs That Will Affect Care: None Current Living Situation: Parent Current Living Situation Comment: Lives w/ family at home Feels Safe at Home: Yes Assistive Devices: None Review of Systems Review of Systems: All systems reviewed & are unremarkable except as noted in HPI & below Physical Exam Constitutional: average body habitus; not ill appearing, not in distress and not diaphoretic Respiratory: normal respiratory effort; no respiratory distress, no labored breathing and does not use accessory muscles Cardiovascular: Rate/Rhythm: + tachycardic; + abnormal rate Chest (Breasts): Additional Comments: No erythema at the left infraclavicular catheter insertion site. Results & Data Vital Signs (Past 12 Hours) Vital Signs Temp Pulse Pulse Resp BP Pulse Ox O2 Del Method 04/10/25 08:12 37.4 C 108 H 17 100/65 94 Room Air 04/10/25 05:31 103 H 04/10/25 03:36 37.0 C 91 H 18 91/61 L 94 Room Air PG Care Time/CCT Total # of Minutes Spent Total Time Spent with Patient: Total time spent is greater than 50% in coordination of care (as documented) at patient's floor/unit and/or counseling patient: Coding Level of Care Code 72903 IN/OBS CONSULT LVL 2,35M Diagnoses Sepsis A41.9 History of central line-associated bloodstream infection (CLABSI) Z86.19
[2025-04-10] MEDS ORDERED: ATROPINE SULFATE 0.1 MG/ML 10ML SYR IV PRN (12:04)
[2025-04-10] MEDS ORDERED: NALOXONE HCL 0.4 MG/1 ML VIAL/CARP IV PRN (12:04)
[2025-04-10] MEDS ORDERED: FLUMAZENIL 0.1 MG/1 ML 10 ML VIAL IV PRN (12:04)
[2025-04-10] MEDS ORDERED: ONDANSETRON INJ 2 MG/ML 2 ML VIAL IV PRN (12:04)
[2025-04-10] MEDS: LIDOCAINE 1% LOCAL 20 ML VIAL ONE (12:24)
--- NOTE | 2025-04-10 12:51 | Anesthesiology Progress Note ---
Date of Service April 10, 2025 Anesthesia Post Procedure Vital Signs Vital Signs: Temp Pulse Pulse Resp BP Pulse Ox O2 Del Method 04/10/25 12:40 37.8 C H 112 H 17 96/62 L 95 Room Air 04/10/25 12:34 37 C 118 H 12 102/67 96 Room Air 04/10/25 11:48 36.9 C 110 H 18 122/78 97 Room Air 04/10/25 08:12 37.4 C 108 H 17 100/65 94 Room Air 04/10/25 05:31 103 H 04/10/25 03:36 37.0 C 91 H 18 91/61 L 94 Room Air 04/09/25 23:15 37.6 C H 107 H 18 108/62 95 Room Air 04/09/25 22:54 121 H 04/09/25 22:40 Room Air 04/09/25 20:53 124 H 98/66 L 04/09/25 19:16 37.2 C 113 H 18 87/61 L 98 Room Air 04/09/25 16:49 36.8 C 99 H 17 93/56 L 96 Room Air Pain Intensity Generalized: Pain Intensity: 7 Transfer of Care Handoff Completed per policy Notes Mental Status: alert / awake / arousable Patient Amnestic to Procedure: Yes Nausea / Vomiting: adequately controlled Pain: adequately controlled Airway Patency, RR, SpO2: stable & adequate BP & HR: stable & adequate Hydration State: stable & adequate Anesthetic Complications: no major complications apparent
--- NOTE | 2025-04-10 12:53 | Operative Report ---
PG Post Operative Report Pre & Post Diagnosis Operation Date: 04/10/25 10:00 Pre-Op Diagnosis: infected Chao catheter Post-Op Diagnosis: infected Chao catheter I identified the patient and participated in the time-out.: Yes Procedure Operation Date: 04/10/25 10:00 Actual Procedures p Removal of Chao Catheter(Not Applicable) - Tarik Kerns DO Surgeon Tarik Kerns DO Explosives Detonator No surgical specialist Estimated Blood Loss 0 Findings Consistent with Post-Op Diagnosis Left implanted Chao catheter. No evidence for purulent drainage Specimens None Anesthesia Type MAC Indications Sepsis Description of Procedure The patient was brought back to the operating room and placed on the operating room table in supine position. She was connected to cardiac and oxygen monitoring, supplemental O2 was provided and patient was administered conscious sedation. The left anterior chest around the Chao catheter was prepped and draped in typical sterile fashion and a timeout was conducted. Local anesthetic was used to anesthetize the skin surrounding the catheter insertion site. The suture holding the catheter in place to the skin was cut and the subcutaneous tissue was dissected from the catheter cuff. This quite easily and the catheter was removed. The catheter tip was placed at a label container that gets sent to microbiology for culture. Pressure was held over the incision site. The incision was then dressed with a pressure dressing of dry sterile gauze secured in place with Tegaderm. The patient tolerated the procedure well. Anesthesia was discontinued and she was transferred to recovery in stable condition. I attest to the content of the Intraoperative Record and any orders documented therein. Any exceptions are noted below.
[2025-04-10] MEDS: VANCOMYCIN LEVEL ONE (13:29)
[2025-04-10] MEDS ORDERED: SODIUM PHOSPHATE 3 MMOL/1 ML INFUSION IV STA (13:57)
--- NOTE | 2025-04-10 13:57 | Hospitalist Progress Note ---
Date of Service April 10, 2025 Assessment & Plan (1) Sepsis: Plan: 29-year-old female with past medical history significant for hypermobile Jaqui- Danlos syndrome, POTS, severe protein calorie malnutrition and GI dysmotility on chronic TPN since 2020, history of chronic nausea, history of recurrent CLABSI, bile reflux gastritis, chronic pain syndrome, CESILIA, history of Helicobacter pylori infection was recently in the hospital for sepsis and E. coli bacteremia and her catheter removed on 03/26/2025 and new Chao catheter Placed on 03/29/2025 again comes because of sepsis. Sepsis Recent E. coli bacteremia Recurrent CLABSI -imaging unrevealing of source -likely has recurrent E. coli CLABSI, was replaced one week ago -improving today -will need line removal given severe sepsis, unclear other source Plan: -surgery consult, appreciate recs, Chao pulled today -continue cefepime until speciation -f/u culture results -redraw blood cultures -will consult ID in AM given recurrent infections Severe protein calorie malnutrition Gastrointestinal dysmotility and on chronic TPN therapy since 2020 -Could not tolerate GJ tube and was removed -Currently has G-tube to allow for gastric venting -Consult pharmacy for TPN AST and alkaline phosphatase mildly elevated -Follow repeat labs Chronic pain syndrome -Follows with pain management through [facility] -On baclofen and duloxetine Chronic nausea -Continue home granisetron and Zyprexa -As needed IV Zofran History of seasonal allergies -On Singulair and loratadine Constipation -On Linzess as needed GERD -On Pepcid I spent a total of 50 minutes in direct patient care, including [id number] time with the patient and/or family, reviewing medical records, ordering and reviewing diagnostic tests, and coordinating care with other healthcare providers. This time includes: history taking, physical examination, medical decision making, counseling, ECG interpretation, imaging interpretation, lab interpretation, orders, and education, excluding time spent in the performance of separately billed services. Admission and Anticipated Discharge Date Admission Date: April 09, 2025 Subjective Patient seen and examined at bedside. Patient doing well today, much better than yesterday. Review of Systems Review of Systems: CONSTITUTIONAL: fatigue, weakness EYES: Patient denies any visual symptoms. EARS, NOSE, AND THROAT: No difficulties with hearing. No symptoms of rhinitis or sore throat. CARDIOVASCULAR: Patient denies chest pains, palpitations, orthopnea and paroxysmal nocturnal dyspnea. RESPIRATORY: No dyspnea on exertion, no wheezing or cough. GI: No nausea, vomiting, diarrhea, constipation, abdominal pain, hematochezia or melena. : No urinary hesitancy or dribbling. No nocturia or urinary frequency. No abnormal urethral discharge. MUSCULOSKELETAL: No myalgias or arthralgias. NEUROLOGIC: No chronic headaches, no seizures. Patient denies numbness, tingling or weakness. PSYCHIATRIC: Patient denies problems with mood disturbance. No problems with anxiety. ENDOCRINE: No excessive urination or excessive thirst. DERMATOLOGIC: Patient denies any rashes or skin changes. Physical Exam Physical Exam: Gen: A&O 3 NAD, cachexia noted HEENT: NCAT, EOMI, not icteric. External ears normal. No rhinorrhea. Moist mucous membranes. Neck: Supple, full range of motion, no observable masses, No meningeal sign. Lungs: No Respiratory distress. CV: tachycardic, regular rhythm Abdomen: Soft, nondistended, No rebound tenderness. MSK: No joint swelling, no redness. Chao present Skin: No rashes, petechiae, lesions. Normal color per patient. Neuro: Normal Gait, Grossly intact. Psych: Appropriate for situation. Results & Data Results & Data Vital Signs (Past 12 Hours) Vital Signs Temp Pulse Pulse Resp BP Pulse Ox O2 Del Method 04/10/25 13:28 38.1 C H 113 H 18 92/60 L 96 Room Air 04/10/25 13:00 112 H 21 96/60 L 95 Room Air 04/10/25 12:50 117 H 23 95/56 L 95 Room Air 04/10/25 12:40 37.8 C H 112 H 17 96/62 L 95 Room Air 04/10/25 12:34 37 C 118 H 12 102/67 96 Room Air 04/10/25 11:48 36.9 C 110 H 18 122/78 97 Room Air 04/10/25 08:12 37.4 C 108 H 17 100/65 94 Room Air 04/10/25 05:31 103 H 04/10/25 03:36 37.0 C 91 H 18 91/61 L 94 Room Air Laboratory Results -personally reviewed, WBC downtrended. chronically elevated LFTs in setting of TPN Medications Administered Baclofen (Baclofen 10 Mg Tab) 10 mg PO BID ZULY Stop: 05/09/25 08:59 Last Admin: 04/10/25 08:36 Dose: 10 mg Documented By: СЕРГЕЙ Admin: 04/09/25 20:39 Dose: 10 mg Documented By: Admin: 04/09/25 08:36 Dose: 10 mg Documented By: DIANA Duloxetine HCl (Duloxetine Hcl 20 Mg Cap) 20 mg PO DAILY ZULY Stop: 05/09/25 08:59 Last Admin: 04/10/25 08:28 Dose: 20 mg Documented By: СЕРГЕЙ Admin: 04/09/25 08:36 Dose: 20 mg Documented By: DIANA Famotidine (Famotidine 20 Mg Tab) 20 mg PO BID ZULY Stop: 05/09/25 08:59 Last Admin: 04/10/25 08:36 Dose: 20 mg Documented By: СЕРГЕЙ Admin: 04/09/25 20:29 Dose: 20 mg Documented By: Admin: 04/09/25 08:38 Dose: 20 mg Documented By: DIANA Heparin Sodium (Porcine) (Heparin Sod 5,000 Unit/0.5 Ml Vial) 5,000 units SQ Q12 ZULY Stop: 05/09/25 08:59 Last Admin: 04/10/25 08:36 Dose: 5,000 units Documented By: СЕРГЕЙ Admin: 04/09/25 20:29 Dose: 5,000 units Documented By: Admin: 04/09/25 08:38 Dose: 5,000 units Documented By: DIANA Cefepime HCl (Maxipime 2000mg) 2,000 mg in 20 mls @ 5 mls/min IV Q8H ZULY; Protocol Stop: 04/16/25 07:59 Last Admin: 04/10/25 08:27 Dose: 5 mls/min Documented By: СЕРГЕЙ Admin: 04/10/25 00:59 Dose: 5 mls/min Documented By: Admin: 04/09/25 16:32 Dose: 5 mls/min Documented By: Admin: 04/09/25 08:13 Dose: 5 mls/min Documented By: DIANA Acetaminophen 650 mg/ EMPTY (BAG) 65 mls @ 260 mls/hr IV Q8H PRN; Protocol PRN Reason: Pain/Fever Stop: 05/09/25 11:51 Last Infusion: 04/10/25 10:40 Dose: Infused Documented By: СЕРГЕЙ Admin: 04/10/25 09:38 Dose: 260 mls/hr Documented By: СЕРГЕЙ Infusion: 04/09/25 22:14 Dose: Infused Documented By: Admin: 04/09/25 21:54 Dose: 260 mls/hr Documented By: SEVERO Lactated Ringer's (Lr) 1,000 mls @ 100 mls/hr IV .Q10H ZULY Stop: 04/12/25 15:59 Last Admin: 04/10/25 13:29 Dose: 100 mls/hr Documented By: СЕРГЕЙ Infusion: 04/10/25 12:29 Dose: Infused Documented By: СЕРГЕЙ Admin: 04/10/25 02:29 Dose: 100 mls/hr Documented By: Infusion: 04/10/25 02:23 Dose: Infused Documented By: Admin: 04/09/25 16:23 Dose: 100 mls/hr Documented By: EDMAR Loratadine (Loratadine 10 Mg Tab) 10 mg PO DAILY ZULY Stop: 05/09/25 08:59 Last Admin: 04/10/25 08:28 Dose: 10 mg Documented By: СЕРГЕЙ Admin: 04/09/25 08:36 Dose: 10 mg Documented By: DIANA Montelukast Sodium (Montelukast Sodium 10 Mg Tablet) 10 mg PO HS ZULY Stop: 05/09/25 20:59 Last Admin: 04/09/25 20:30 Dose: 10 mg Documented By: SEVERO Olanzapine (Olanzapine 2.5 Mg Tab) 2.5 mg PO DAILY ZULY Stop: 05/09/25 08:59 Last Admin: 04/10/25 08:28 Dose: 2.5 mg Documented By: СЕРГЕЙ Admin: 04/09/25 08:36 Dose: 2.5 mg Documented By: DIANA Ondansetron HCl (Ondansetron Inj 2 Mg/Ml 2 Ml Vial) 4 mg IV Q6H PRN PRN Reason: Nausea Stop: 05/09/25 05:12 Last Admin: 04/09/25 20:39 Dose: 4 mg Documented By: Admin: 04/09/25 09:50 Dose: 4 mg Documented By: EDMAR
[2025-04-10] MEDS: SODIUM PHOSPHATE 12 MMOL in SODIUM CHLORIDE 0.9% 250 ML IV ONE (14:53)
[2025-04-11 06:37] LABS: Hematocrit (blood only) 28.9 % (37.0-47.0); Hemoglobin 9.9 g/dl (12.0-16.0); Mean Corpuscular Hemoglobin 29.1 pg (25.0-34.0); Mean Corpuscular Volume 85.0 fL (80.0-100.0); Platelet Count 285 K/uL (130-400); RDW Standard Deviation 43.8 fL (36.4-46.3); Red Blood Count 3.40 M/uL (4.20-5.40); White Blood Count 4.48 K/ul (4.8-10.8)
[2025-04-11 07:08] LABS: Alanine Aminotransferase 50.0 U/L (7-52); Albumin Globulin Ratio 1.3 (0.9-2); Albumin Level 3.1 gm/dl (3.4-5.0); Alkaline Phosphatase 114.0 U/L (34-104); Anion Gap 5.0 (3-11); Bilirubin,Total 0.5 mg/dl (0.2-1.0); Blood Urea Nitrogen 4.0 mg/dl (6-23); Calcium 8.0 mg/dl (8.6-10.3); Carbon Dioxide 24.0 mmol/L (21-32); Chloride 109.0 mmol/L (98-107); Creatinine Clr Calc Pharmacy 127.1 ml/min; Globulin 2.3 gm/dl (2.5-4.0); Glucose 128.0 mg/dl (70-99(Fasting)); Magnesium 1.7 mg/dl (1.7-2.4); Potassium 3.0 mmol/L (3.5-5.1); Sodium 138.0 mmol/L (136-145); Total Protein 5.4 gm/dl (6.0-8.3)
[2025-04-11] MEDS ORDERED: SODIUM PHOSPHATE 3 MMOL/1 ML INFUSION IV STA (07:30)
--- NOTE | 2025-04-11 07:56 | Surgery Progress Note ---
<Statement entered by Tarik Kerns, - 04/11/25 09:53> I have seen this pt this am to inspect the catheter removal site at the left infraclavicular region. There is no bleeding or swelling post removal. General surgery will sign off at this time. Please contact vascular if further surgical access will be requested during this admission. Date of Service April 11, 2025 Assessment & Plan (1) Sepsis: Plan: POD#1 puente removal WBC 4, last temp/fever 101.8F at 2AM. remains on IV abx Can do dressing change tomorrow (gauze/tape daily) until healed will s/o please call with any questions/concerns Admission and Anticipated Discharge Date Admission Date: April 09, 2025 Subjective Patient offer no complaints regarding s/p line removal. Physical Exam Physical Exam: awake/alert, no distress Skin: c/d/i dressing Results & Data Vital Signs (Past 12 Hours) Vital Signs Temp Pulse Pulse Resp BP Pulse Ox O2 Del Method 04/11/25 05:39 98.1 F 04/11/25 02:27 101.8 F H 125 H 16 112/80 98 Room Air 04/10/25 22:11 100.8 F H 127 H 18 105/69 96 Room Air 04/10/25 21:42 113 H PG Care Time/CCT Total # of Minutes Spent Total Time Spent with Patient: Total time spent is greater than 50% in coordination of care (as documented) at patient's floor/unit and/or counseling patient: Coding Level of Care Code 20131 Post Operative Follow-Up Diagnoses Sepsis A41.9
[2025-04-11] MEDS: SODIUM PHOSPHATE 9 MMOL in SODIUM CHLORIDE 0.9% 250 ML IV ONE (08:07)
[2025-04-11] MEDS: POTASSIUM CHLORIDE 20 MEQ/15 ML UDC PO STA (08:07)
[2025-04-11] MEDS: CALCIUM GLUCONATE 1,000 MG/60 ML BAG IV STA (09:36)
[2025-04-11] MEDS: cefTRIAXone SODIUM 2,000 MG/50 ML BAG IV SCH (09:38)
--- NOTE | 2025-04-11 12:41 | Hospitalist Progress Note ---
Date of Service April 11, 2025 Assessment & Plan (1) Sepsis: Plan: 29-year-old female with past medical history significant for hypermobile Jaqui- Danlos syndrome, POTS, severe protein calorie malnutrition and GI dysmotility on chronic TPN since 2020, history of chronic nausea, history of recurrent CLABSI, bile reflux gastritis, chronic pain syndrome, CESILIA, history of Helicobacter pylori infection was recently in the hospital for sepsis and E. coli bacteremia and her catheter removed on 03/26/2025 and new Chao catheter Placed on 03/29/2025 again comes because of sepsis. Sepsis Recent E. coli bacteremia Recurrent CLABSI -imaging unrevealing of source -likely has recurrent E. coli CLABSI, was replaced one week ago -improving today -will need line removal given severe sepsis, unclear other source -discussed with ID, gram negative unlikely to cause endocarditis, no NAYLA indicated at this point Plan: -surgery consult, appreciate recs, Chao pulled -f/u negative cultures x48 hours -stop cefepime, start ceftriaxone -shared decision making with family, will do 14 day course of ceftriaxone IV therapy Severe protein calorie malnutrition Gastrointestinal dysmotility and on chronic TPN therapy since 2020 -Could not tolerate GJ tube and was removed -Currently has G-tube to allow for gastric venting -Consult pharmacy for TPN, hold until 48 hours negative blood cultures AST and alkaline phosphatase mildly elevated -Follow repeat labs Chronic pain syndrome -Follows with pain management through [facility] -On baclofen and duloxetine Chronic nausea -Continue home granisetron and Zyprexa -As needed IV Zofran History of seasonal allergies -On Singulair and loratadine Constipation -On Linzess as needed GERD -On Pepcid I spent a total of 50 minutes in direct patient care, including [id number] time with the patient and/or family, reviewing medical records, ordering and reviewing diagnostic tests, and coordinating care with other healthcare providers. This time includes: history taking, physical examination, medical decision making, counseling, ECG interpretation, imaging interpretation, lab interpretation, orders, and education, excluding time spent in the performance of separately billed services. Admission and Anticipated Discharge Date Admission Date: April 09, 2025 Subjective Patient seen and examined at bedside. Mother present as well. Patient doing better today. Did have one documented fever last night. We discussed doing a PICC line instead of a Hcao given the recurrent infections, patient is hesitant but agreeable if there is a site avaliable. Review of Systems Review of Systems: CONSTITUTIONAL: fatigue, weakness, improving EYES: Patient denies any visual symptoms. EARS, NOSE, AND THROAT: No difficulties with hearing. No symptoms of rhinitis or sore throat. CARDIOVASCULAR: Patient denies chest pains, palpitations, orthopnea and paroxysmal nocturnal dyspnea. RESPIRATORY: No dyspnea on exertion, no wheezing or cough. GI: No nausea, vomiting, diarrhea, constipation, abdominal pain, hematochezia or melena. : No urinary hesitancy or dribbling. No nocturia or urinary frequency. No abnormal urethral discharge. MUSCULOSKELETAL: No myalgias or arthralgias. NEUROLOGIC: No chronic headaches, no seizures. Patient denies numbness, tingling or weakness. PSYCHIATRIC: Patient denies problems with mood disturbance. No problems with anxiety. ENDOCRINE: No excessive urination or excessive thirst. DERMATOLOGIC: Patient denies any rashes or skin changes. Physical Exam Physical Exam: Gen: A&O 3 NAD, cachexia noted HEENT: NCAT, EOMI, not icteric. External ears normal. No rhinorrhea. Moist mucous membranes. Neck: Supple, full range of motion, no observable masses, No meningeal sign. Lungs: No Respiratory distress. CV: tachycardic, regular rhythm Abdomen: Soft, nondistended, No rebound tenderness. MSK: No joint swelling, no redness. Chao removed, no tenderness at wound site Skin: No rashes, petechiae, lesions. Normal color per patient. Neuro: Normal Gait, Grossly intact. Psych: Appropriate for situation. Results & Data Results & Data Vital Signs (Past 12 Hours) Vital Signs Temp Pulse Pulse Resp BP BP Pulse Ox 04/11/25 07:57 36.4 C L 86 16 86/60 L 98 04/11/25 07:00 97 H 04/11/25 05:39 36.7 C 04/11/25 02:27 38.8 C H 125 H 16 112/80 98 O2 Del Method 04/11/25 07:57 Room Air 04/11/25 07:00 04/11/25 05:39 04/11/25 02:27 Room Air Laboratory Results -personally reviewed, K of 3 replenished, creatinine at baseline, phos 2.3 and replenished, calcium of 8 and replenished Medications Administered Baclofen (Baclofen 10 Mg Tab) 10 mg PO BID ZULY Stop: 05/09/25 08:59 Last Admin: 04/11/25 08:12 Dose: 10 mg Documented By: Admin: 04/10/25 20:29 Dose: 10 mg Documented By: Admin: 04/10/25 08:36 Dose: 10 mg Documented By: СЕРГЕЙ Admin: 04/09/25 20:39 Dose: 10 mg Documented By: Admin: 04/09/25 08:36 Dose: 10 mg Documented By: DIANA Duloxetine HCl (Duloxetine Hcl 20 Mg Cap) 20 mg PO DAILY ZULY Stop: 05/09/25 08:59 Last Admin: 04/11/25 08:13 Dose: 20 mg Documented By: Admin: 04/10/25 08:28 Dose: 20 mg Documented By: СЕРГЕЙ Admin: 04/09/25 08:36 Dose: 20 mg Documented By: DIANA Famotidine (Famotidine 20 Mg Tab) 20 mg PO BID ZULY Stop: 05/09/25 08:59 Last Admin: 04/11/25 08:12 Dose: 20 mg Documented By: Admin: 04/10/25 20:29 Dose: 20 mg Documented By: Admin: 04/10/25 08:36 Dose: 20 mg Documented By: СЕРГЕЙ Admin: 04/09/25 20:29 Dose: 20 mg Documented By: Admin: 04/09/25 08:38 Dose: 20 mg Documented By: DIANA Heparin Sodium (Porcine) (Heparin Sod 5,000 Unit/0.5 Ml Vial) 5,000 units SQ Q1 2 ZULY Stop: 05/09/25 08:59 Last Admin: 04/11/25 08:13 Dose: 5,000 units Documented By: Admin: 04/10/25 20:29 Dose: 5,000 units Documented By: Admin: 04/10/25 08:36 Dose: 5,000 units Documented By: СЕРГЕЙ Admin: 04/09/25 20:29 Dose: 5,000 units Documented By: Admin: 04/09/25 08:38 Dose: 5,000 units Documented By: DIANA Acetaminophen 650 mg/ EMPTY (BAG) 65 mls @ 260 mls/hr IV Q8H PRN; Protocol PRN Reason: Pain/Fever Stop: 05/09/25 11:51 Last Infusion: 04/11/25 02:51 Dose: Infused Documented By: Admin: 04/11/25 02:36 Dose: 260 mls/hr Documented By: Infusion: 04/10/25 10:40 Dose: Infused Documented By: СЕРГЕЙ Admin: 04/10/25 09:38 Dose: 260 mls/hr Documented By: СЕРГЕЙ Infusion: 04/09/25 22:14 Dose: Infused Documented By: Admin: 04/09/25 21:54 Dose: 260 mls/hr Documented By: SEVERO Lactated Ringer's (Lr) 1,000 mls @ 100 mls/hr IV .Q10H ZULY Stop: 04/12/25 15:59 Last Admin: 04/11/25 06:48 Dose: 100 mls/hr Documented By: Infusion: 04/11/25 06:29 Dose: Infused Documented By: Admin: 04/10/25 20:29 Dose: 100 mls/hr Documented By: Infusion: 04/10/25 20:29 Dose: Infused Documented By: Admin: 04/10/25 13:29 Dose: 100 mls/hr Documented By: СЕРГЕЙ Infusion: 04/10/25 12:29 Dose: Infused Documented By: СЕРГЕЙ Admin: 04/10/25 02:29 Dose: 100 mls/hr Documented By: Infusion: 04/10/25 02:23 Dose: Infused Documented By: Admin: 04/09/25 16:23 Dose: 100 mls/hr Documented By: EDMAR Ceftriaxone Sodium (Rocephin) 2,000 mg in 50 mls @ 100 mls/hr IV Q24H ZULY Stop: 04/25/25 07:29 Last Infusion: 04/11/25 10:28 Dose: Infused Documented By: Admin: 04/11/25 09:38 Dose: 100 mls/hr Documented By: LUL Loratadine (Loratadine 10 Mg Tab) 10 mg PO DAILY ZULY Stop: 05/09/25 08:59 Last Admin: 04/11/25 08:14 Dose: 10 mg Documented By: Admin: 04/10/25 08:28 Dose: 10 mg Documented By: СЕРГЕЙ Admin: 04/09/25 08:36 Dose: 10 mg Documented By: DIANA Montelukast Sodium (Montelukast Sodium 10 Mg Tablet) 10 mg PO HS ZULY Stop: 05/09/25 20:59 Last Admin: 04/10/25 20:29 Dose: 10 mg Documented By: Admin: 04/09/25 20:30 Dose: 10 mg Documented By: SEVERO Olanzapine (Olanzapine 2.5 Mg Tab) 2.5 mg PO DAILY ZULY Stop: 05/09/25 08:59 Last Admin: 04/11/25 08:13 Dose: 2.5 mg Documented By: Admin: 04/10/25 08:28 Dose: 2.5 mg Documented By: СЕРГЕЙ Admin: 04/09/25 08:36 Dose: 2.5 mg Documented By: DIANA Ondansetron HCl (Ondansetron Inj 2 Mg/Ml 2 Ml Vial) 4 mg IV Q6H PRN PRN Reason: Nausea Stop: 05/09/25 05:12 Last Admin: 04/09/25 20:39 Dose: 4 mg Documented By: Admin: 04/09/25 09:50 Dose: 4 mg Documented By: EDMAR
[2025-04-11] MEDS: POTASSIUM CHLORIDE 20 MEQ/15 ML UDC PO ONE (16:50)
[2025-04-12 07:11] LABS: Hematocrit (blood only) 29.2 % (37.0-47.0); Hemoglobin 9.9 g/dl (12.0-16.0); Mean Corpuscular Hemoglobin 28.9 pg (25.0-34.0); Mean Corpuscular Volume 85.4 fL (80.0-100.0); Platelet Count 311 K/uL (130-400); RDW Standard Deviation 44.6 fL (36.4-46.3); Red Blood Count 3.42 M/uL (4.20-5.40); White Blood Count 4.48 K/ul (4.8-10.8)
[2025-04-12 07:38] LABS: Alanine Aminotransferase 42.0 U/L (7-52); Albumin Globulin Ratio 1.3 (0.9-2); Albumin Level 3.2 gm/dl (3.4-5.0); Alkaline Phosphatase 119.0 U/L (34-104); Anion Gap 4.0 (3-11); Bilirubin,Total 0.3 mg/dl (0.2-1.0); Blood Urea Nitrogen 3.0 mg/dl (6-23); Calcium 8.5 mg/dl (8.6-10.3); Carbon Dioxide 27.0 mmol/L (21-32); Chloride 110.0 mmol/L (98-107); Creatinine Clr Calc Pharmacy 138.9 ml/min; Globulin 2.4 gm/dl (2.5-4.0); Glucose 88.0 mg/dl (70-99(Fasting)); Magnesium 1.7 mg/dl (1.7-2.4); Potassium 3.5 mmol/L (3.5-5.1); Sodium 141.0 mmol/L (136-145); Total Protein 5.6 gm/dl (6.0-8.3); Triglycerides 166.0 mg/dl (0-150)
--- NOTE | 2025-04-12 12:29 | Hospitalist Progress Note ---
Date of Service April 12, 2025 Assessment & Plan (1) Sepsis: Plan: 29-year-old female with past medical history significant for hypermobile Jaqui- Danlos syndrome, POTS, severe protein calorie malnutrition and GI dysmotility on chronic TPN since 2020, history of chronic nausea, history of recurrent CLABSI, bile reflux gastritis, chronic pain syndrome, CESILIA, history of Helicobacter pylori infection was recently in the hospital for sepsis and E. coli bacteremia and her catheter removed on 03/26/2025 and new Chao catheter Placed on 03/29/2025 again comes because of sepsis. Sepsis Recent E. coli bacteremia Recurrent CLABSI -imaging unrevealing of source -likely has recurrent E. coli CLABSI, was replaced one week ago -will need line removal given severe sepsis, unclear other source -discussed with ID, gram negative unlikely to cause endocarditis, no NAYLA indicated at this point -negative cultures x48 hours -given recurrence of E. coli bacteremia, negative imaging, negative UA, and culture tip not growing E. coli either time, suspect likely GI translocation of E. coli Plan: -surgery consult, appreciate recs, Chao pulled -continue ceftriaxone -shared decision making with family, will do 14 day course of ceftriaxone IV therapy given recurrence -consult vascular surgery for Chao replacement, appreciate recs Severe protein calorie malnutrition Gastrointestinal dysmotility and on chronic TPN therapy since 2020 -Could not tolerate GJ tube and was removed -Currently has G-tube to allow for gastric venting -Consult pharmacy for PPN today AST and alkaline phosphatase mildly elevated -Follow labs, in setting of TPN use Chronic pain syndrome -Follows with pain management through [facility] -On baclofen and duloxetine Chronic nausea -Continue home granisetron and Zyprexa -As needed IV Zofran History of seasonal allergies -On Singulair and loratadine Constipation -On Linzess as needed GERD -On Pepcid I spent a total of 45 minutes in direct patient care, including [id number] time with the patient and/or family, reviewing medical records, ordering and reviewing diagnostic tests, and coordinating care with other healthcare providers. This time includes: history taking, physical examination, medical decision making, counseling, ECG interpretation, imaging interpretation, lab interpretation, orders, and education, excluding time spent in the performance of separately billed services. Admission and Anticipated Discharge Date Admission Date: April 09, 2025 Subjective Patient seen and examined at bedside. Patient doing well today. She states that she feels much better overall, no fevers overnight. Review of Systems Review of Systems: CONSTITUTIONAL: fatigue, weakness, improving EYES: Patient denies any visual symptoms. EARS, NOSE, AND THROAT: No difficulties with hearing. No symptoms of rhinitis or sore throat. CARDIOVASCULAR: Patient denies chest pains, palpitations, orthopnea and paroxysmal nocturnal dyspnea. RESPIRATORY: No dyspnea on exertion, no wheezing or cough. GI: No nausea, vomiting, diarrhea, constipation, abdominal pain, hematochezia or melena. : No urinary hesitancy or dribbling. No nocturia or urinary frequency. No abnormal urethral discharge. MUSCULOSKELETAL: No myalgias or arthralgias. NEUROLOGIC: No chronic headaches, no seizures. Patient denies numbness, tingling or weakness. PSYCHIATRIC: Patient denies problems with mood disturbance. No problems with anxiety. ENDOCRINE: No excessive urination or excessive thirst. DERMATOLOGIC: Patient denies any rashes or skin changes. Physical Exam Physical Exam: Gen: A&O 3 NAD, cachexia noted HEENT: NCAT, EOMI, not icteric. External ears normal. No rhinorrhea. Moist mucous membranes. Neck: Supple, full range of motion, no observable masses, No meningeal sign. Lungs: No Respiratory distress. CV: tachycardic, regular rhythm Abdomen: Soft, nondistended, No rebound tenderness. MSK: No joint swelling, no redness. Chao removed, no tenderness at wound site Skin: No rashes, petechiae, lesions. Normal color per patient. Neuro: Normal Gait, Grossly intact. Psych: Appropriate for situation. Results & Data Results & Data Vital Signs (Past 12 Hours) Vital Signs Temp Pulse Pulse Resp BP Pulse Ox Pulse Ox 04/12/25 11:00 36.8 C 88 18 105/76 98 04/12/25 08:00 36.7 C 89 20 91/62 L 96 04/12/25 06:00 98 04/12/25 05:55 114 H 04/12/25 03:07 36.9 C 94 H 18 91/60 L 98 O2 Del Method O2 Del Method 04/12/25 11:00 Room Air 04/12/25 08:00 Room Air 04/12/25 06:00 Room Air 04/12/25 05:55 04/12/25 03:07 Room Air Laboratory Results -personally reviewed, no leukocytosis, creatinine at baseline Medications Administered Baclofen (Baclofen 10 Mg Tab) 10 mg PO BID ZULY Stop: 05/09/25 08:59 Last Admin: 04/12/25 09:18 Dose: 10 mg Documented By: Admin: 04/11/25 20:10 Dose: 10 mg Documented By: Admin: 04/11/25 08:12 Dose: 10 mg Documented By: Admin: 04/10/25 20:29 Dose: 10 mg Documented By: Admin: 04/10/25 08:36 Dose: 10 mg Documented By: СЕРГЕЙ Admin: 04/09/25 20:39 Dose: 10 mg Documented By: Admin: 04/09/25 08:36 Dose: 10 mg Documented By: DIANA Duloxetine HCl (Duloxetine Hcl 20 Mg Cap) 20 mg PO DAILY ZULY Stop: 05/09/25 08:59 Last Admin: 04/12/25 09:18 Dose: 20 mg Documented By: Admin: 04/11/25 08:13 Dose: 20 mg Documented By: Admin: 04/10/25 08:28 Dose: 20 mg Documented By: СЕРГЕЙ Admin: 04/09/25 08:36 Dose: 20 mg Documented By: DIANA Famotidine (Famotidine 20 Mg Tab) 20 mg PO BID ZULY Stop: 05/09/25 08:59 Last Admin: 04/12/25 09:18 Dose: 20 mg Documented By: Admin: 04/11/25 20:10 Dose: 20 mg Documented By: Admin: 04/11/25 08:12 Dose: 20 mg Documented By: Admin: 04/10/25 20:29 Dose: 20 mg Documented By: Admin: 04/10/25 08:36 Dose: 20 mg Documented By: СЕРГЕЙ Admin: 04/09/25 20:29 Dose: 20 mg Documented By: Admin: 04/09/25 08:38 Dose: 20 mg Documented By: DIANA Heparin Sodium (Porcine) (Heparin Sod 5,000 Unit/0.5 Ml Vial) 5,000 units SQ Q12 ZULY Stop: 05/09/25 08:59 Last Admin: 04/12/25 09:18 Dose: 5,000 units Documented By: Admin: 04/11/25 20:10 Dose: 5,000 units Documented By: Admin: 04/11/25 08:13 Dose: 5,000 units Documented By: Admin: 04/10/25 20:29 Dose: 5,000 units Documented By: Admin: 04/10/25 08:36 Dose: 5,000 units Documented By: СЕРГЕЙ Admin: 04/09/25 20:29 Dose: 5,000 units Documented By: Admin: 04/09/25 08:38 Dose: 5,000 units Documented By: DIANA Acetaminophen 650 mg/ EMPTY (BAG) 65 mls @ 260 mls/hr IV Q8H PRN; Protocol PRN Reason: Pain/Fever Stop: 05/09/25 11:51 Last Infusion: 04/11/25 02:51 Dose: Infused Documented By: Admin: 04/11/25 02:36 Dose: 260 mls/hr Documented By: Infusion: 04/10/25 10:40 Dose: Infused Documented By: СЕРГЕЙ Admin: 04/10/25 09:38 Dose: 260 mls/hr Documented By: СЕРГЕЙ Infusion: 04/09/25 22:14 Dose: Infused Documented By: Admin: 04/09/25 21:54 Dose: 260 mls/hr Documented By: SEVERO Lactated Ringer's (Lr) 1,000 mls @ 100 mls/hr IV .Q10H ZULY Stop: 04/12/25 15:59 Last Admin: 04/12/25 04:13 Dose: 100 mls/hr Documented By: Infusion: 04/12/25 04:13 Dose: Infused Documented By: Admin: 04/11/25 18:16 Dose: 100 mls/hr Documented By: Infusion: 04/11/25 16:48 Dose: Infused Documented By: Admin: 04/11/25 06:48 Dose: 100 mls/hr Documented By: Infusion: 04/11/25 06:29 Dose: Infused Documented By: Admin: 04/10/25 20:29 Dose: 100 mls/hr Documented By: Infusion: 04/10/25 20:29 Dose: Infused Documented By: Admin: 04/10/25 13:29 Dose: 100 mls/hr Documented By: СЕРГЕЙ Infusion: 04/10/25 12:29 Dose: Infused Documented By: СЕРГЕЙ Admin: 04/10/25 02:29 Dose: 100 mls/hr Documented By: Infusion: 04/10/25 02:23 Dose: Infused Documented By: Admin: 04/09/25 16:23 Dose: 100 mls/hr Documented By: EDMAR Ceftriaxone Sodium (Rocephin) 2,000 mg in 50 mls @ 100 mls/hr IV Q24H ZULY Stop: 04/25/25 07:29 Last Infusion: 04/12/25 09:50 Dose: Infused Documented By: Admin: 04/12/25 09:17 Dose: 100 mls/hr Documented By: Infusion: 04/11/25 10:28 Dose: Infused Documented By: Admin: 04/11/25 09:38 Dose: 100 mls/hr Documented By: LUL Loratadine (Loratadine 10 Mg Tab) 10 mg PO DAILY ZULY Stop: 05/09/25 08:59 Last Admin: 04/12/25 09:18 Dose: 10 mg Documented By: Admin: 04/11/25 08:14 Dose: 10 mg Documented By: Admin: 04/10/25 08:28 Dose: 10 mg Documented By: СЕРГЕЙ Admin: 04/09/25 08:36 Dose: 10 mg Documented By: DIANA Montelukast Sodium (Montelukast Sodium 10 Mg Tablet) 10 mg PO HS ZULY Stop: 05/09/25 20:59 Last Admin: 04/11/25 20:59 Dose: 10 mg Documented By: Admin: 04/10/25 20:29 Dose: 10 mg Documented By: Admin: 04/09/25 20:30 Dose: 10 mg Documented By: SEVERO Olanzapine (Olanzapine 2.5 Mg Tab) 2.5 mg PO DAILY ZULY Stop: 05/09/25 08:59 Last Admin: 04/12/25 09:18 Dose: 2.5 mg Documented By: Admin: 04/11/25 08:13 Dose: 2.5 mg Documented By: Admin: 04/10/25 08:28 Dose: 2.5 mg Documented By: СЕРГЕЙ Admin: 04/09/25 08:36 Dose: 2.5 mg Documented By: DIANA Ondansetron HCl (Ondansetron Inj 2 Mg/Ml 2 Ml Vial) 4 mg IV Q6H PRN PRN Reason: Nausea Stop: 05/09/25 05:12 Last Admin: 04/09/25 20:39 Dose: 4 mg Documented By: Admin: 04/09/25 09:50 Dose: 4 mg Documented By: EDMAR
[2025-04-12] MEDS ORDERED: TPN/PPN CONSULT PHARMACY STA (13:13)
[2025-04-12] MEDS ORDERED: DEXTROSE 10% 1,000 ML IV PRN (13:13)
--- NOTE | 2025-04-12 14:39 | Pharmacy Report ---
Pharmacy Initial PN Consult Nt - Date of Service April 12, 2025 - Scope Pharmacy has been consulted on this date to manage parenteral nutrition orders and order appropriate labs. As part of the Nutrition Support Team Guidelines, pharmacy will work in conjunction with dietary when determining the patients caloric needs. - Subjective * The patient is a 29 year old Female admitted on 04/09/25 for possible CLABSI, E. coli bacteremia * Patient is to receive parenteral nutrition for ongoing chronic TPN. * Chao removed this visit. Repeat blood cultures NGTD x48 hours. Dr. Jarrett ARGUELLO'brigitte starting PPN today. Plan for possible Chao tomorrow. Discussed PPN and TPN parameters with dietary. Will use regimen similar to previous PPN about 2 weeks ago. - Objective Vascular Access: * Patient currently has a peripheral line. * Peripheral line was confirmed by IV Team to be acceptable for PPN use on this date. Height & Weight (Last Documented) Height 5 ft 3 in Weight 47.9 kg Diet Order(s) 04/10/25 Dinner Diet Intake & Ouput (24hrs) 04/11/25 04/12/25 04/13/25 06:59 06:59 06:59 Intake Total 3604 / 3604 3058 / 3058 1050 / 1050 Output Total 0 / 0 Balance 3604 / 3604 3058 / 3058 1050 / 1050 Selected Laboratory Results 04/12/25 06:38 Sodium 141 Potassium 3.5 Chloride 110 H Carbon Dioxide 27 Anion Gap 4 BUN 3 L Creatinine 0.46 L BUN/Creatinine Ratio 6.5 L Glucose 88 Calcium 8.5 L Phosphorus 2.7 Magnesium 1.7 Total Bilirubin 0.3 AST 28 ALT 42 Alkaline Phosphatase [address] - Follow Up Nutrition Assessment Start: 04/09/25 11:33 Freq: Status: Active Protocol: Document 04/12/25 12:15 WN (Rec: 04/12/25 12:33 WN [id number]) RD - Initial Nutrition Assessment Start: 04/09/25 11:25 Freq: Status: Active Protocol: Document 04/09/25 11:25 ALR (Rec: 04/09/25 11:33 ALR [id number]) - Assessment & Plan Assessment: * Appreciate dietitians recommendations for macronutrients (discussed both PPN today and ongoing TPN) * TPN held 04/09-04/11. Resuming PPN 04/12. Possible central access 04/13 * Will admin over 24 hours for now Plan: * For Day #1 of PPN administration, the following will be ordered: * Macronutrients: * Amino Acids: 71 grams/day * Dextrose: 84 grams/day * Lipids planned MWF * Micronutrients: * Sodium phosphate: 12 mMol/day * Sodium chloride: 80 mEq/day * Sodium acetate: 80 mEq/day * Potassium acetate: 40 mEq/day * Magnesium sulfate: 8.12 mEq/day * Calcium gluconate: 4.65 mEq/day * Multivitamins: 10 mL/day * Trace elements: 1 mL/day * Thiamine: 100 mg/day * Folic Acid: 1 mg/day * Total volume of 1800 mL will be infused over 24 hours and will provide 571 kcal/day * Patient is on PPN which has a maximum mOsm/L of 900. Final osmolarity of current solution is 876 mOsm/L. * Labs will be ordered per PN protocol. * Pharmacy will follow and adjust PN orders on a daily basis. Thank you!
[2025-04-12] MEDS ORDERED: PERIPHERAL TPN IV SCH (16:00)
[2025-04-12] MEDS ORDERED: [UNRECOGNIZED DRUG - OTHER] IV SCH (16:00)
[2025-04-12] MEDS: [UNRECOGNIZED DRUG - OTHER] IV SCH (16:09)
[2025-04-12] MEDS: PERIPHERAL TPN IV SCH (16:09)
[2025-04-12] MEDS ORDERED: VANCOMYCIN CONSULT ACTIVE PRN (23:36)
[2025-04-13] MEDS: VANCOMYCIN HCL / NSS 1,000 MG/270 ML BAG IV ONE (00:41)
--- NOTE | 2025-04-13 01:51 | Pharmacy Report ---
Pharmacy PK ABX Note - Date of Service April 13, 2025 - Assessment and Plan Assessment 04/13: Vancomycin restarted due to repeat blood cultures with 1/4 GPCs in aerobic bottle. BCID2 pending at this time. Patient afebrile x24 hours. 04/10: Vancomycin discontinued, ceftriaxone monotherapy initiated for downs- sensitive E. Coli bacteremia. 04/09 blood culture also growing paenibacillus antibioticophilia in anaerobic bottle 07/17. Hospitalist reports discussing with ID. 04/09: 29 year old F receiving vancomycin and cefepime for empiric treatment in setting of sepsis. Blood cultures (+) GNB in 08/15 (second bottle pending). Blood biofire (+) E.coli with no resistance genes. Renal function stable. Day # 3 of ceftriaxone therapy (vancomycin Day #1). Plan Vancomycin * Loading dose: 1000mg x1 * Maintenance dose: 1000 mg IV every 8 hours starting 04/13 @ 0600 * Regimen is predicted to achieve target AUC/BRITT of 400-600 mg/L.hr * Trough level 04/14/25 @ 0530 Pharmacy will continue to follow and will adjust dose/frequency as necessary. Thank you. Pharmacy has transitioned to AUC monitoring for vancomycin. AUC/BRITT is the preferred PK/PD target and is associated with decreased risk of nephrotoxicity compared to traditional trough targets.
[2025-04-13] MEDS: VANCOMYCIN HCL / NSS 1,000 MG/270 ML BAG IV SCH (05:35)
[2025-04-13 07:19] LABS: Hematocrit (blood only) 29.8 % (37.0-47.0); Hemoglobin 10.1 g/dl (12.0-16.0); Mean Corpuscular Hemoglobin 28.9 pg (25.0-34.0); Mean Corpuscular Volume 85.4 fL (80.0-100.0); Platelet Count 358 K/uL (130-400); RDW Standard Deviation 44.3 fL (36.4-46.3); Red Blood Count 3.49 M/uL (4.20-5.40); White Blood Count 5.29 K/ul (4.8-10.8)
[2025-04-13] MEDS: ERGOCALCIFEROL 1250 MCG (50,000 UNITS) CAP PO SCH (07:39)
[2025-04-13 07:43] LABS: Alanine Aminotransferase 41.0 U/L (7-52); Albumin Globulin Ratio 1.3 (0.9-2); Albumin Level 3.4 gm/dl (3.4-5.0); Alkaline Phosphatase 118.0 U/L (34-104); Anion Gap 5.0 (3-11); Bilirubin,Total 0.3 mg/dl (0.2-1.0); Blood Urea Nitrogen 9.0 mg/dl (6-23); Calcium 8.6 mg/dl (8.6-10.3); Carbon Dioxide 26.0 mmol/L (21-32); Chloride 109.0 mmol/L (98-107); Creatinine Clr Calc Pharmacy 138.9 ml/min; Globulin 2.7 gm/dl (2.5-4.0); Glucose 95.0 mg/dl (70-99(Fasting)); Magnesium 1.9 mg/dl (1.7-2.4); Potassium 3.5 mmol/L (3.5-5.1); Sodium 140.0 mmol/L (136-145); Total Protein 6.1 gm/dl (6.0-8.3)
[2025-04-13 11:11] LABS: BldCult Id GramSt Discrep Comm Discrepant
--- NOTE | 2025-04-13 13:23 | Hospitalist Progress Note ---
Date of Service April 13, 2025 Assessment & Plan (1) Severe sepsis with acute organ dysfunction: (2) E. coli bacteremia: (3) CLABSI (central line-associated bloodstream infection): (4) Severe protein-calorie malnutrition: (5) Gastrointestinal dysmotility: (6) On total parenteral nutrition (TPN): (7) Chronic pain syndrome: (8) POTS (postural orthostatic tachycardia syndrome): (9) Jaqui-Danlos disease: Plan 29-year-old with recurrent bacteremia and CLABSI infections. Presented with severe sepsis due to E. coli bacteremia. Concern for CLABSI, Chao catheter was removed. Catheter did not grow E. coli, suspect bacteremia may be from translocation through gut mucosa. Continue with a 14-day course of ceftriaxone for E. coli bacteremia Surveillance blood culture 1 of 4 bottles growing Staph epidermidis, this is a contaminant. Can discontinue vancomycin. No need for additional blood cultures Consult vascular surgery for replacement of Chao catheter, patient is on chronic TPN Continue to monitor electrolytes while on parenteral nutrition Encourage activity Admission and Anticipated Discharge Date Admission Date: April 09, 2025 Subjective Patient denies any acute symptoms overnight. Tolerating PPN. Events of last evening noted with 1 of 4 bottles positive for gram-positive bacteria. Physical Exam Physical Exam: Constitutional: Alert, nontoxic, no acute distress HEENT: Mucous membranes moist. Lungs: Clear to auscultation, decreased, no wheezes rales or rhonchi CV: S1-S2, regular Abdomen: Soft, nontender, nondistended, PEG tube Extremities: No significant edema Neuro: No focal deficits Psych: Cooperative, normal mood Results & Data Results & Data Vital Signs (Past 12 Hours) Vital Signs Temp Pulse Resp BP Pulse Ox O2 Del Method 04/13/25 07:23 36.7 C 93 H 16 107/75 96 Room Air Diagnostic Findings Reviewed imaging, laboratory and diagnostic studies. Pertinent findings as below. WBCs 5.2 Hemoglobin 10.1 Platelets at 358 Electrolytes stable Creatinine 0.46 Blood culture showing Staph epidermidis, this is a contaminant. No need to treat any further. (3) CLABSI (central line-associated bloodstream infection) Encounter type: subsequent encounter Qualified Code(s): T80.211D - Bloodstream infection due to central venous catheter, subsequent encounter
[2025-04-13] MEDS: CLINOLIPID 20% IV FAT EMULSION 250 ML IV SCH (16:43)
[2025-04-13] MEDS: PERIPHERAL TPN IV SCH (16:43)
[2025-04-13] MEDS: [UNRECOGNIZED DRUG - OTHER] IV SCH (16:43)
[2025-04-14] MEDS: STOP CLINOLIPID SCH (04:32)
[2025-04-14] MEDS ORDERED: VANCOMYCIN LEVEL ONE (05:00)
[2025-04-14 06:56] LABS: Anion Gap 5.0 (3-11); Blood Urea Nitrogen 11.0 mg/dl (6-23); Calcium 8.7 mg/dl (8.6-10.3); Carbon Dioxide 27.0 mmol/L (21-32); Chloride 108.0 mmol/L (98-107); Creatinine Clr Calc Pharmacy 114.6 ml/min; Glucose 87.0 mg/dl (70-99(Fasting)); Magnesium 2.2 mg/dl (1.7-2.4); Potassium 3.8 mmol/L (3.5-5.1); Sodium 140.0 mmol/L (136-145)
--- NOTE | 2025-04-14 09:26 | Vascular Surgery Consultation ---
Date of Consultation April 14, 2025 Assessment & Plan (1) E. coli bacteremia: Recently placed Chao catheter removed and tip sent for culture, which has been negative repeat blood cultures negative x 72 hours, excluding positive blood cultures yesterday from contaminant, she is no longer febrile and vitals are more at baseline at this time. Suspecting bacteremia related to translocation of bacteria through gut mucosa, as catheter tip not growing e. coli. will be on 14d course of IV ceftriaxone (currently with [address]) Will need to plan for some sort of access for not only antibiotics but her TPN. (2) History of central line-associated bloodstream infection (CLABSI): She has had many different catheters as well as a port, all of which have had complications of central line infection. Given the thought of translocation of bacteria through gut mucosa, it is likely this will continue to recur, causing more central line infections. Discussed this with patient, who understands and agrees, and as mentioned above, does have an appointment with motility clinic at [place] in 2 weeks. Currently discussing placing PICC (potentially at OSH with more capabilities where smaller PICCs may be available or can be ordered easily, such as 3F or 4F) vs replacing Chao as best option for her. Should Chao be decided upon, can replace tomorrow, however she would need to be NPO after midnight for this should this be the decision. It may be worth considering ethanol locks to the Chao if this is the route chosen, to help decrease risk of central line infection. (3) Gastrointestinal dysmotility: s/p GJ tube and now converted to G tube, due to inability to tolerate full J tube feeds without vomiting, and also frequent malposition of GJ tubes, and inability to take in enough PO nutrition to maintain weight, thus requiring TPN (runs for 14 hours). We had a long discussion about the ultimate goal being to obtain her nutrition enterally, as central lines increase risk of infection and I am also worried about her access sites usp, as she already has poor peripheral IV access, and continued central venous access can cause difficulty in obtaining access in the future, if needed. She has discussed the possibility of a direct J with her team at [facility] and has an appointment at [place] at a dysmotility clinic as well, in hopes to eventually get back to enteral feeding. We discussed options of lines, to include PICC lines (may need to look into smaller PICC lines such as a 3F or 4F double lumen PICC given size of her veins) vs new silicone Chao with ethanol lock instead of heparin lock, and discussed with hospitalist as well. PICC likely would need to be done somewhere with better access to different sized lines or where these could be ordered easily. Given the size of her veins that she tells me (0.3cm), she should be able to have 3F or 4F double lumen PICC. History of Present Illness Reason for Consultation: Replace Chao catheter Requesting Physician: Dr. Barajas Attending Physician: Rudy Barajas, DO History of Present Illness Priyanka is a 29 year old female with PMHx significant for chronic GI dysmotility (on chronic TPN with recurrent CLABSI) resulting in severe protein calorie malnutrition, hypermobile EDS, POTS, chronic nausea, chronic pain syndrome, bile reflux gastritis, CESILIA, history of H. pylori infection, who was admitted on 04/09/25 after presenting to ED with fevers, nausea and chills and generally not feeling well. History was obtained from both patient and review of patient's chart. In the ED she was noted to be febrile and tachycardic with hypotension. She was given a fluid bolus and blood cultures were drawn due to her history of recurrent central line infections. She was also started on IV antibiotics. Lactic acid was within normal limits, CXR without any concern for pneumonia, and respiratory panel negative. Blood cultures drawn in ED positive for e. coli, which was also present on last admission. General Surgery was consulted over the weekend to remove the recently placed left sided Chao Catheter (placed 03/29/25), which was done on 04/10 without difficulty. As mentioned, patient has a history of chronic GI dysmotility and nausea, resulting in need for chronic TPN. In the past she has had a port, which subsequently was removed due to fungemia, and has had multiple tunneled central lines since that time. In the recent past she has been hospitalized in May 2024 with central line associated MSSA bacteremia to her left sided port, which was removed, and treated with Ancef x 14 days and placement of new Chao at that time after multiple days of repeat negative cultures. Also hospitalized in November 2024 with central line associated staph epidermidis bacteremia, treated with 14 days daptomycin, with line remaining in place. Her most recent central line associated infection was in December 2024, with central line associated MSSA bacteremia, patient admitted to [facility] at that time. Her tunneled central line was removed by IR at that time, and she was again treated with Ancef. She did have new right sided tunneled central line placed while in [place] after repeat blood cultures negative for greater than 72 hours. Her most recent line was placed on 03/29/[address] Espana (left sided 7F double lumen silicone line cut to length) after removal of previously placed right sided Chao on 03/25/25, and a 72 hour line holiday, with negative repeat blood cultures. She currently takes little PO due to her chronic nausea and abdominal pain, and is unable to maintain weight just with PO intake. She does have G tube in currently which she uses for venting only. She has had multiple attempts at trialing GJ tubes, however these have been unsuccessful due to positional issues with GJ tube becoming malpositioned multiple times, and inability to tolerate full J tube feeds. Important to note she does not tolerate polyurethane lines (power lines), but does tolerate silicone lines. Her lines are locked with heparin. She states she did have a silicone line in the past that they used ethanol locks for and felt that helped keep central line infections at bay. She is allergic to chlorhexidine and betadine, but has tolerated chlorhexidine in the past. She denies any history of blood clots in her arms or neck. She does note that she has difficult with IV access in her arms. She currently denies any fevers or chills, no nausea or vomiting, no dizziness. Ate some breakfast today (couple bites of latvian toast and eggs). Only complaint at this time is her chronic abdominal pain. She denies any discharge around the tunnel site or any erythema to the tunnel site. Current IV access includes one peripheral and one midline, and she has PPN running. In discussions with hospitalist and ID, decision was made to do longer course of IV antibiotics (14d ceftriaxone IV), and bacteremia is being thought to be due to translocation from bowel, as line tip culture has been negative. In discussion with her regarding enteral nutrition, she follows with [facility], but also has an appointment in [place] with a GI specialist for gastroparesis/dysmotility to discuss options including direct J tube. Allergies Allergy/AdvReac Type Severity Reaction Status Date / Time diphenhydramine Allergy Severe Urticaria, Verified 04/07/25 14:40 [From Benadryl] severe anxiety, jittery prochlorperazine Allergy Severe Anaphylaxis Verified 04/07/25 14:40 [From Compazine] adhesive Allergy Intermediate Redness, Verified 04/07/25 14:40 swelling gluten Allergy Intermediate Hives, GI Verified 04/07/25 14:40 upset peanut Allergy Intermediate Itchy Verified 04/07/25 14:40 throat tree nut Allergy Intermediate Itchy Verified 04/07/25 14:40 throat pollen extracts Allergy Mild Itchy Verified 04/07/25 14:40 eyes, sneezing, congestion chlorhexidine Allergy Unknown Unknown Verified 04/07/25 14:40 iron [From Venofer] AdvReac Severe Abdominal Verified 04/07/25 14:40 Pain Latex, Natural Rubber AdvReac Intermediate Redness, Verified 04/07/25 14:40 itchy polyurethane Allergy Hives Uncoded 04/13/25 12:55 polyurethane power port Allergy Itching Uncoded 04/13/25 12:55 Home Medications Medication Instructions Recorded Confirmed Type baclofen 10 mg tablet 10 mg PO BID 04/09/25 04/09/25 History cholecalciferol (vitamin D3) 1,250 1,250 mcg PO WK 04/09/25 04/09/25 History mcg (50,000 unit) tablet cyanocobalamin (vitamin B-12) 1,000 mcg IM MONTHLY 04/09/25 04/09/25 History 1,000 mcg/mL injection solution duloxetine 20 mg capsule,delayed 20 mg PO DAILY 04/09/25 04/09/25 History release famotidine 20 mg tablet 20 mg PO BID 04/09/25 04/09/25 History granisetron HCl 1 mg tablet 1 mg PO Q12H 04/09/25 04/09/25 History guaifenesin 600 mg tablet, 600 mg PO Q12H PRN Cough 04/09/25 04/09/25 History extended release 12 hr hydroxyzine HCl 10 mg tablet 50 mg PO QID PRN Anxiety 04/09/25 04/09/25 History linaclotide 145 mcg capsule 145 mcg PO DAILY PRN Constipation 04/09/25 04/09/25 History loratadine 10 mg tablet 10 mg PO DAILY 04/09/25 04/09/25 History montelukast 10 mg tablet 10 mg PO HS 04/09/25 04/09/25 History olanzapine 2.5 mg tablet 2.5 mg PO DAILY 04/09/25 04/09/25 History ondansetron 8 mg disintegrating 8 mg PO Q8H PRN Nausea And Vomiting 04/09/25 04/09/25 History tablet Patient History Medical History Gastrostomy tube in place Anxiety Gastrointestinal dysmotility Reactive hypoglycemia dexcom present to left arm Anemia Neuropathy legs Gastroparesis History of COVID-19 02/2022, not hospitalized 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 Jejunostomy tube present placed October 2020 Surgical History S/P gastrostomy History of removal of Port-a-Cath (05/21/24) Infusaport Removal - Left side(Left) - Alton Garcia DO, FACS History of myringotomy History of surgery (06/24/21) Removal of Right Tunneled Central Line in Internal Jugular Catheter H/O wisdom tooth extraction H/O wrist surgery right S/P knee surgery Left Family History Other Adopted Social History Smoking Status: Never smoker Second Hand Exposure: No; Do You Dip or Chew Tobacco: No; Hx Alcohol Use: No Hx Substance Use: No Preferred Language: Rwandan Communication Ability: Effective Cad Engineer Required: No Beliefs That Will Affect Care: None Current Living Situation: Parent Current Living Situation Comment: Lives w/ family at home Feels Safe at Home: Yes Assistive Devices: None Review of Systems Constitutional: see HPI Respiratory: no shortness of breath or coughing Cardiovascular: Additional Comments: no palpitations or chest pain Gastrointestinal: see HPI Integumentary: no rashes or lesions, no poor wound healing. Neurologic: no headache Physical Exam Constitutional: sitting up in bed, in no distress, pleasant and talkative Neck: supple, trachea midline, several well healed scars noted bilaterally from previous jugular access, no lymphadenopathy noted, no prominent veins/collaterals noted. Respiratory: no accessory muscle use noted, no increased work of breathing Cardiovascular: +2 radial pulses bilaterally +2 DP pulses bilaterally +2 PT pulses bilaterally No upper or lower extremity edema noted. Chest (Breasts): Additional Comments: no collateral veins appreciated on chest. Multiple well healed scars noted on bilateral upper chest from previous central lines/ports. Most recent access site left chest healing well. Gastrointestinal (Abdomen): G tube in place. Neurologic: CN II-XII grossly intact. Results & Data Vital Signs (Past 12 Hours) Vital Signs Temp Pulse Resp BP BP Pulse Ox O2 Del Method 04/14/25 07:03 36.8 C 93 H 18 95/63 L 99 Room Air 04/14/25 00:19 36.9 C 94 H 16 94/64 L 98 Room Air Laboratory Results 04/09/25 01:17 Aerobic Blood Culture - Final Blood No growth in Aerobic bottle after 5 days. Anaerobic Blood Culture - Preliminary Paenibacillus antibioticophila 04/10/25 09:59 Aerobic Blood Culture - Preliminary Blood Staphylococcus epidermidis Anaerobic Blood Culture - Preliminary No growth in Anaerobic bottle after 48 hours. 04/14/25 04/14/25 04/14/25 07:53 06:11 06:08 Sodium 140 Potassium 3.8 Chloride 108 H Carbon Dioxide 27 Anion Gap 5 BUN 11 Creatinine 0.54 L Est Cr Clr Drug Dosing 114.6 eGFR 129.33 BUN/Creatinine Ratio 20.4 H Glucose 87 POC Glucose 105 H 88 Calcium 8.7 Phosphorus 3.1 Magnesium 2.2 Bld Cult ID PCR Com 04/14/25 04/13/25 04/13/25 00:13 18:05 11:46 Sodium Potassium Chloride Carbon Dioxide Anion Gap BUN Creatinine Est Cr Clr Drug Dosing eGFR BUN/Creatinine Ratio Glucose POC Glucose 94 99 97 Calcium Phosphorus Magnesium Bld Cult ID PCR Com 04/10/25 09:59 Sodium Potassium Chloride Carbon Dioxide Anion Gap BUN Creatinine Est Cr Clr Drug Dosing eGFR BUN/Creatinine Ratio Glucose POC Glucose Calcium Phosphorus Magnesium Bld Cult ID PCR Com Discrepant Medications Administered Home Medications Medication Instructions Recorded Confirmed Last Taken baclofen 10 mg tablet 10 mg PO BID 04/09/25 04/09/25 Unknown cholecalciferol (vitamin D3) 1,250 1,250 mcg PO WK 04/09/25 04/09/25 Unknown mcg (50,000 unit) tablet cyanocobalamin (vitamin B-12) 1,000 mcg IM MONTHLY 04/09/25 04/09/25 Unknown 1,000 mcg/mL injection solution duloxetine 20 mg capsule,delayed 20 mg PO DAILY 04/09/25 04/09/25 Unknown release famotidine 20 mg tablet 20 mg PO BID 04/09/25 04/09/25 Unknown granisetron HCl 1 mg tablet 1 mg PO Q12H 04/09/25 04/09/25 Unknown guaifenesin 600 mg tablet, 600 mg PO Q12H PRN Cough 04/09/25 04/09/25 Unknown extended release 12 hr hydroxyzine HCl 10 mg tablet 50 mg PO QID PRN Anxiety 04/09/25 04/09/25 Unknown linaclotide 145 mcg capsule 145 mcg PO DAILY PRN Constipation 04/09/25 04/09/25 Unknown loratadine 10 mg tablet 10 mg PO DAILY 04/09/25 04/09/25 Unknown montelukast 10 mg tablet 10 mg PO HS 04/09/25 04/09/25 Unknown olanzapine 2.5 mg tablet 2.5 mg PO DAILY 04/09/25 04/09/25 Unknown ondansetron 8 mg disintegrating 8 mg PO Q8H PRN Nausea And Vomiting 04/09/25 04/09/25 Unknown tablet Active Medications Generic Name Dose Route Start Last Admin Trade Name Freq PRN Reason Stop Dose Admin Baclofen 10 mg 04/09/25 09:00 04/14/25 07:47 Baclofen 10 Mg Tab PO 05/09/25 08:59 10 mg BID ZULY Administration Duloxetine HCl 20 mg 04/09/25 09:00 04/14/25 07:46 Duloxetine Hcl 20 Mg Cap PO 05/09/25 08:59 20 mg DAILY ZULY Administration Ergocalciferol 1,250 mcg 04/13/25 09:00 04/13/25 07:39 Ergocalciferol 1250 Mcg (50,000 Units) Cap PO 05/13/25 08:59 1,250 mcg We@0900 ZULY Administration Famotidine 20 mg 04/09/25 09:00 04/14/25 07:46 Famotidine 20 Mg Tab PO 05/09/25 08:59 20 mg BID ZULY Administration Heparin Sodium (Porcine) 5,000 units 04/09/25 09:00 04/14/25 07:47 Heparin Sod 5,000 Unit/0.5 Ml Vial SQ 05/09/25 08:59 5,000 units Q12 ZULY Administration Acetaminophen 650 mg/ EMPTY 65 mls @ 260 mls/hr 04/09/25 11:52 04/11/25 02:51 BAG IV 05/09/25 11:51 Infused Q8H PRN Infusion Pain/Fever Protocol Ceftriaxone Sodium 2,000 mg in 50 mls @ 100 mls/hr 04/11/25 07:30 04/14/25 08:05 Rocephin IV 04/25/25 07:29 Infused Q24H ZULY Infusion Amino Acids 1,801 ml/ 1,801 mls @ 75.042 mls/hr 04/13/25 16:00 04/13/25 16:43 Nutrition (Parenteral) IV 04/14/25 15:59 75 mls/hr .Q24H ZULY Administration Protocol Fat Emulsion-[place] Oil/Soybean Oil 250 mls @ 20.776 mls/hr 04/13/25 16:00 04/14/25 04:30 Clinolipid 20% Iv Fat Emulsion IV 05/13/25 15:59 Infused [id number] ZULY Infusion Loratadine 10 mg 04/09/25 09:00 04/14/25 07:47 Loratadine 10 Mg Tab PO 05/09/25 08:59 10 mg DAILY ZULY Administration Miscellaneous 1 each 04/14/25 04:00 04/14/25 04:32 Stop Clinolipid N/A 05/14/25 03:59 1 each TuThSa@0400 ZULY Administration Montelukast Sodium 10 mg 04/09/25 21:00 04/13/25 21:03 Montelukast Sodium 10 Mg Tablet PO 05/09/25 20:59 10 mg HS ZULY Administration Olanzapine 2.5 mg 04/09/25 09:00 04/14/25 07:46 Olanzapine 2.5 Mg Tab PO 05/09/25 08:59 2.5 mg DAILY ZULY Administration Ondansetron HCl 4 mg 04/09/25 05:13 04/09/25 20:39 Ondansetron Inj 2 Mg/Ml 2 Ml Vial IV 10/27/25 05:12 4 mg Q6H PRN Administration Nausea PG Care Time/CCT Total # of Minutes Spent Total Time Spent with Patient: Total time spent is greater than 50% in coordination of care (as documented) at patient's floor/unit and/or counseling patient: Coding [place] [address] IN/OBS CONSULT LVL 3,45M Patient Type Established Medical Decision Making Moderate Complexity Diagnoses E. coli bacteremia R78.81; B96.20 History of central line-associated bloodstream infection (CLABSI) Z86.19 Gastrointestinal dysmotility K92.89
[2025-04-14 12:40] LABS: Blood Culture Id Panel PCR Not Reported (NotDetected)
--- NOTE | 2025-04-14 15:09 | Hospitalist Progress Note ---
Date of Service April 14, 2025 Assessment & Plan (1) Severe sepsis with acute organ dysfunction: Plan: Resolved (2) E. coli bacteremia: (3) CLABSI (central line-associated bloodstream infection): (4) Severe protein-calorie malnutrition: (5) Gastrointestinal dysmotility: (6) On total parenteral nutrition (TPN): (7) Chronic pain syndrome: (8) POTS (postural orthostatic tachycardia syndrome): (9) Jaqui-Danlos disease: Plan Continue Rocephin for total 14 days. Extensive conversation with Dr. Espana and patient at bedside. Discussed possibly placing a pediatric PICC line versus replacing the Chao catheter. Patient was open to this and understands that would require transfer Communication with transfer center. Discussed patient's case with [facility] and with [facility]. Both facilities stated that PICC line would not provide any additional benefits or decreased risk for infection compared to the Chao. Recommended patient stay at [facility] and continue to work with vascular surgery. Updated the patient and family throughout the day about conversations with other facilities. Additional conversation with vascular surgery team. Aware that patient has not been in excepted for transfer. They will plan on getting the appropriate Chao catheter ordered and anticipate placing Chao catheter on Friday. Patient and family updated to the plan. 52 minutes spent in coordination of care, communication with multiple specialists, review record, documentation and evaluation patient bedside Admission and Anticipated Discharge Date Admission Date: April 09, 2025 Subjective No acute issues overnight. No fevers. Physical Exam Physical Exam: Constitutional: Alert, nontoxic, no acute distress HEENT: Mucous membranes moist. Lungs: No respiratory distress CV: Regular Abdomen: Soft, Extremities: No significant edema Neuro: No focal deficits Psych: Cooperative, normal mood Results & Data Results & Data Vital Signs (Past 12 Hours) Vital Signs Temp Pulse Resp BP Pulse Ox O2 Del Method 04/14/25 07:40 Room Air 04/14/25 07:03 36.8 C 93 H 18 95/63 L 99 Room Air Diagnostic Findings Reviewed imaging, laboratory and diagnostic studies. Pertinent findings as below. Electrolytes stable Creatinine 0.54 (3) CLABSI (central line-associated bloodstream infection) Encounter type: subsequent encounter Qualified Code(s): T80.211D - Bloodstream infection due to central venous catheter, subsequent encounter
[2025-04-14] MEDS: [UNRECOGNIZED DRUG - OTHER] IV SCH (16:00)
[2025-04-14] MEDS: PERIPHERAL TPN IV SCH (16:00)
[2025-04-15 08:51] LABS: Anion Gap 7.0 (3-11); Blood Urea Nitrogen 13.0 mg/dl (6-23); Calcium 9.2 mg/dl (8.6-10.3); Carbon Dioxide 24.0 mmol/L (21-32); Chloride 106.0 mmol/L (98-107); Creatinine Clr Calc Pharmacy 137.9 ml/min; Glucose 92.0 mg/dl (70-99(Fasting)); Magnesium 2.2 mg/dl (1.7-2.4); Potassium 4.0 mmol/L (3.5-5.1); Sodium 137.0 mmol/L (136-145)
--- NOTE | 2025-04-15 10:48 | Vascular Surgery Progress Note ---
Date of Service April 15, 2025 Assessment & Plan (1) E. coli bacteremia: Plan: -Recently placed Chao catheter removed and tip sent for culture, which remains negative -Suspecting bacteremia related to translocation of bacteria through gut mucosa, as catheter tip not growing e. coli. -will be on 14d course of IV ceftriaxone (currently with [address]) -Had long discussion with Priyanka as well as attending and multiple hospitals, as far as best options for her at this time. On the one hand, PICC line access would be beneficial to help preserve her IJ access, however she is sensitive to polyurethane and has small arm veins, which make placing a line more difficult, with similar infection risk as tunneled line. The tunneled line placement will allow for ethanol lock which can help decrease CLABSI risk. Will plan to place tunneled silicone Chao on Friday. This will allow her a greater line holiday, and longer time on antibiotics before new line is placed. Will plan for right sided placement. Silicone line in stock with back up line ordered this morning. -She will need to be npo after midnight Friday night/Friday for planned sedation for line placement. -Ethanol lock will need to be done by her home health nurse -OR consent and sedation consent both obtained this morning. (2) History of central line-associated bloodstream infection (CLABSI): Plan: See above will replace silicone line and lock with ethanol to hopefully decrease CLABSI risk. (3) Gastrointestinal dysmotility: Plan: s/p GJ tube and now converted to G tube, due to inability to tolerate full J tube feeds without vomiting, and also frequent malposition of GJ tubes, and inability to take in enough PO nutrition to maintain weight, thus requiring TPN (runs for 14 hours). We had a long discussion about the ultimate goal being to obtain her nutrition enterally, as central lines increase risk of infection and I am also worried about her access sites superintendent container terminal, as she already has poor peripheral IV access, and continued central venous access can cause difficulty in obtaining access in the future, if needed. She has discussed the possibility of a direct J with her team at [facility] and has an appointment at [place] at a dysmotility clinic as well, in hopes to eventually get back to enteral feeding. -will plan to replace Chao on Sharif morning for continued TPN. Admission and Anticipated Discharge Date Admission Date: April 09, 2025 Subjective stable overnight, no complaints. Remains on PPN through PIV, and continues on Ceftriaxone for total of 14d antibiotics. afebrile overnight. Catheter tip continues with no growth. Physical Exam Physical Exam: lying in bed sleeping, but arouses easily. skin overlying chest with multiple well healed scars bilaterally, no obvious varicosities/collateral veins noted over chest wall. Results & Data Vital Signs (Past 12 Hours) Vital Signs Temp Pulse Resp BP BP Pulse Ox O2 Del Method 04/15/25 07:15 Room Air 04/15/25 07:00 36.9 C 85 19 93/59 L 96 Room Air 04/15/25 00:05 36.9 C 94 H 16 98/67 L 100 Room Air PG Care Time/CCT Total # of Minutes Spent Total Time Spent with Patient: Total time spent is greater than 50% in coordination of care (as documented) at patient's floor/unit and/or counseling patient:
--- NOTE | 2025-04-15 12:50 | Hospitalist Progress Note ---
Date of Service April 15, 2025 Assessment & Plan (1) Severe sepsis with acute organ dysfunction: Plan: Resolved (2) E. coli bacteremia: (3) CLABSI (central line-associated bloodstream infection): (4) Severe protein-calorie malnutrition: (5) Gastrointestinal dysmotility: (6) On total parenteral nutrition (TPN): (7) Chronic pain syndrome: (8) POTS (postural orthostatic tachycardia syndrome): (9) Jaqui-Danlos disease: Plan Continue PPN Continue ceftriaxone Through 04/24/2025 Communication with pharmacy, can decrease lab draws to every other day Anticipate placing Chao catheter Friday Admission and Anticipated Discharge Date Admission Date: April 09, 2025 Subjective Patient offers no complaints. No acute issues Physical Exam Physical Exam: Constitutional: Alert, nontoxic, underweight HEENT: Mucous membranes moist. Lungs: No acute distress CV: Regular Abdomen: Soft, Psych: Cooperative, normal mood Results & Data Results & Data Vital Signs (Past 12 Hours) Vital Signs Temp Pulse Resp BP Pulse Ox O2 Del Method 04/15/25 07:15 Room Air 04/15/25 07:00 36.9 C 85 19 93/59 L 96 Room Air Diagnostic Findings Reviewed imaging, laboratory and diagnostic studies. Pertinent findings as below. (3) CLABSI (central line-associated bloodstream infection) Encounter type: subsequent encounter Qualified Code(s): T80.211D - Bloodstream infection due to central venous catheter, subsequent encounter
[2025-04-15] MEDS: MULTIVITAMIN CHEWABLE TAB PO SCH (14:53)
[2025-04-15] MEDS: [UNRECOGNIZED DRUG - OTHER] IV SCH (16:00)
[2025-04-15] MEDS: PERIPHERAL TPN IV SCH (16:00)
--- NOTE | 2025-04-16 10:59 | Hospitalist Progress Note ---
Date of Service April 16, 2025 Assessment & Plan (1) Severe sepsis with acute organ dysfunction: Plan: Resolved (2) E. coli bacteremia: (3) CLABSI (central line-associated bloodstream infection): (4) Severe protein-calorie malnutrition: (5) Gastrointestinal dysmotility: (6) On total parenteral nutrition (TPN): (7) Chronic pain syndrome: (8) POTS (postural orthostatic tachycardia syndrome): (9) Jaqui-Danlos disease: Plan Continue Rocephin Continue PPN Laboratory studies every other day Anticipating placement of Chao cath on Friday Admission and Anticipated Discharge Date Admission Date: April 09, 2025 Subjective Patient required placement of new IV overnight but otherwise no acute issues. Looking forward to watching football today Physical Exam Physical Exam: Constitutional: Alert, underweight HEENT: Mucous membranes moist. Lungs: Clear to auscultation, decreased, no wheezes rales or rhonchi CV: S1-S2, regular Abdomen: Soft, nontender, nondistended Extremities: No significant edema, IV in left upper arm Neuro: No focal deficits Psych: Cooperative, normal mood, Results & Data Results & Data Vital Signs (Past 12 Hours) Vital Signs Temp Pulse Resp BP Pulse Ox O2 Del Method 04/16/25 07:03 36.7 C 98 H 19 112/76 100 Room Air 04/16/25 00:35 36.8 C 98 H 16 100/66 99 Room Air (3) CLABSI (central line-associated bloodstream infection) Encounter type: subsequent encounter Qualified Code(s): T80.211D - Bloodstream infection due to central venous catheter, subsequent encounter
[2025-04-16] MEDS: PERIPHERAL TPN IV SCH (16:12)
[2025-04-16] MEDS: [UNRECOGNIZED DRUG - OTHER] IV SCH (16:12)
--- NOTE | 2025-04-17 06:59 | Vascular Surgery Progress Note ---
Date of Service April 17, 2025 Assessment & Plan (1) E. coli bacteremia: Plan: Plan for right IJ puente catheter tomorrow. NPO after midnight please. Consents obtained, signed on chart. Admission and Anticipated Discharge Date Admission Date: April 09, 2025 Subjective No reported problems. Physical Exam Physical Exam: Sleeping. Results & Data Vital Signs (Past 12 Hours) Vital Signs Temp Pulse Resp BP Pulse Ox O2 Del Method 04/17/25 00:12 36.5 C 82 16 96/63 L 97 Room Air 04/16/25 22:03 Room Air PG Care Time/CCT Total # of Minutes Spent Total Time Spent with Patient: Total time spent is greater than 50% in coordination of care (as documented) at patient's floor/unit and/or counseling patient:
[2025-04-17 07:59] LABS: Hematocrit (blood only) 36.5 % (37.0-47.0); Hemoglobin 11.5 g/dl (12.0-16.0); Mean Corpuscular Hemoglobin 27.4 pg (25.0-34.0); Mean Corpuscular Volume 87.1 fL (80.0-100.0); Platelet Count 590 K/uL (130-400); RDW Standard Deviation 46.1 fL (36.4-46.3); Red Blood Count 4.19 M/uL (4.20-5.40); White Blood Count 9.57 K/ul (4.8-10.8)
[2025-04-17 08:17] LABS: Anion Gap 5.0 (3-11); Blood Urea Nitrogen 18.0 mg/dl (6-23); Calcium 9.6 mg/dl (8.6-10.3); Carbon Dioxide 29.0 mmol/L (21-32); Chloride 104.0 mmol/L (98-107); Creatinine Clr Calc Pharmacy 106.7 ml/min; Glucose 95.0 mg/dl (70-99(Fasting)); Magnesium 2.2 mg/dl (1.7-2.4); Potassium 4.4 mmol/L (3.5-5.1); Sodium 138.0 mmol/L (136-145)
--- NOTE | 2025-04-17 11:38 | Hospitalist Progress Note ---
Date of Service April 17, 2025 Assessment & Plan (1) Severe sepsis with acute organ dysfunction: Plan: Resolved (2) E. coli bacteremia: Plan: Ceftriaxone through 04/24/2025 (3) CLABSI (central line-associated bloodstream infection): (4) Severe protein-calorie malnutrition: (5) Gastrointestinal dysmotility: (6) On total parenteral nutrition (TPN): (7) Chronic pain syndrome: (8) POTS (postural orthostatic tachycardia syndrome): (9) Jaqui-Danlos disease: Plan Continue current care with PPN and ceftriaxone N.p.o. after midnight for anticipation of placement of Chao cath tomorrow Tomorrow will investigate possibility of alcohol lock for Chao Update case management possible discharge in next 1 to 2 days Admission and Anticipated Discharge Date Admission Date: April 09, 2025 Subjective No acute issues overnight. Physical Exam Physical Exam: Constitutional: Alert, nontoxic, underweight HEENT: Mucous membranes moist. Lungs: No respiratory distress CV: Regular Neuro: No focal deficits Psych: Cooperative, normal mood Results & Data Results & Data Vital Signs (Past 12 Hours) Vital Signs Temp Pulse Resp BP Pulse Ox O2 Del Method 04/17/25 07:28 36.3 C L 78 18 92/57 L 99 Room Air 04/17/25 00:12 36.5 C 82 16 96/63 L 97 Room Air Diagnostic Findings Reviewed imaging, laboratory and diagnostic studies. Pertinent findings as below. CBC stable Electrolytes stable on PPN Creatinine 0.57 (3) CLABSI (central line-associated bloodstream infection) Encounter type: subsequent encounter Qualified Code(s): T80.211D - Bloodstream infection due to central venous catheter, subsequent encounter
[2025-04-17] MEDS: [UNRECOGNIZED DRUG - OTHER] IV SCH (16:38)
[2025-04-17] MEDS: PERIPHERAL TPN IV SCH (16:38)
[2025-04-18] MEDS: LIDOCAINE 1% LOCAL 20 ML VIAL ONE (07:40)
[2025-04-18] MEDS: ONDANSETRON INJ 2 MG/ML 2 ML VIAL IV STA (07:52)
--- NOTE | 2025-04-18 08:02 | Pre Anesthesia Assessment ---
Date of Service April 18, 2025 Pre Sedation Assessment Vital Signs Temp Pulse Resp BP Pulse Ox O2 Del Method 04/18/25 07:30 36.7 C 98 H 20 101/69 99 Room Air 04/18/25 00:32 36.9 C 96 H 16 99/67 L 99 Room Air Cardiovascular RRR, no murmur, no edema Respiratory normal respiratory effort, lungs clear to auscultation Pre-Sedation Airway Assessment Smoking Status: Never smoker Hx Sleep Apnea: No Short, Thick Neck: No Thyromental Distance: > or= 3.5 Finger Breadths Oral Cavity: + WNL Mallampati Class: III ASA: ASA2 NPO Status Date of Last Intake of Fluids: 04/17/25 Time of Last Intake of Fluids: 20:00 Date of Last Intake of Solid Food: 04/17/25 Time of Last Intake of Solid Foods: 16:00 Procedure Planning Contraindications for Sedation: none Current Medications Reviewed: Yes Notes The planned sedation has been discussed with the patient. Informed Consent was obtained. I have identified the patient, determined the appropriateness of sedation and have assessed the patient immediately prior to the procedure. All medicine(s) and interventions are by my order. Patient with mild nausea this am possibly related to recent antibiotic dosing. Will vent G-tube and give Zofran. Will proceed if nausea resolved.
[2025-04-18] MEDS: MIDAZOLAM HCL 1 MG/ML 2ML VIAL ONE (08:30)
--- NOTE | 2025-04-18 09:05 | Post Anesthesia Assessment ---
Date of Service April 18, 2025 Post Sedation Assessment Vital Signs Temp Pulse Pulse Resp BP BP Pulse Ox 04/18/25 09:00 90 19 116/87 100 04/18/25 08:55 95 H 14 119/74 100 04/18/25 08:50 98 H 33 H 121/86 100 04/18/25 08:45 92 H 17 111/76 100 04/18/25 08:40 94 H 17 104/71 100 04/18/25 08:35 82 27 H 107/74 100 04/18/25 08:30 87 14 107/76 100 04/18/25 08:25 81 16 110/76 100 04/18/25 07:30 36.7 C 98 H 20 101/69 99 04/18/25 00:32 36.9 C 96 H 16 99/67 L 99 O2 Del Method O2 Flow Rate 04/18/25 09:00 Oxymask 4 04/18/25 08:55 Oxymask 4 04/18/25 08:50 Oxymask 4 04/18/25 08:45 Oxymask 4 04/18/25 08:40 Oxymask 4 04/18/25 08:35 Oxymask 4 04/18/25 08:30 Oxymask 4 04/18/25 08:25 Oxymask 4 04/18/25 07:30 Room Air 04/18/25 00:32 Room Air Recovery Score Activity: Moves 4 extremities Respiration: Deep Breath/Cough Circulation: +/-20% PreAnes Value Consciousness: Fully Awake Oxygen Saturation: > 92% On Room Air Post Anesthesia Score: 10 Discharge Sedation Level of Care: Fast Track Phase II Post Sedation Plan On clinical assessment, the patient appears to have tolerated the sedation without complications. Patient is recovering as anticipated. Patient will continue to be monitored by nursing and may be discharged when sedation discharge criteria are met per below protocol. Upon Completions of procedure up to 15 minutes continue every 5 minute vital signs and the P.A.R. score; then discharge to a Phase I or Fast Track to Phase II per the following guidelines: * Discharge Patient to appropriate Phase II area if PAR is 8 or greater or return to pre- procedure baseline. The post - procedure orders will be as directed. * If PAR score is less than 8 or not return to pre-procedure baseline then patient will follow Phase I monitoring till PAR is reached for Phase II. The Phase I may be done in procedure room or may call to secure a Phase I area. * If naloxone or flumazenil are used for reversal, hold in Phase I for continued monitoring from when last reversal dose was given for a minimum of 60 minutes or longer pending the nurse and/or physician discretion of patient condition before discharge to Phase II. Please call the Sedation Physician to re-evaluate and complete post-note for discharge to Phase II area. Do NOT discharge from procedure sedation or Phase 1 until post- sedation evaluation note is complete by procedure /sedation MD Sedation Discharge Instructions to be given to the patient at discharge to home.
--- NOTE | 2025-04-18 09:11 | Operative Report ---
PG Post Operative Report Pre & Post Diagnosis Operation Date: 04/18/25 08:00 Pre-Op Diagnosis: Sepsis Post-Op Diagnosis: Sepsis I identified the patient and participated in the time-out.: Yes Procedure Operation Date: 04/18/25 08:00 Actual Procedures p Chao Catheter Insertion(Right) - Ismael Espana MD Insertion 7Fr double lumen RIJ tunneled central venous line Surgeon Ismael Espana MD Power Plant Manager No marketing assistant manager Estimated Blood Loss 5 Findings Consistent with Post-Op Diagnosis Specimens None Anesthesia Type RN Sedation Complications none Disposition Accompanied Patient To Recovery: Yes Indications Need for terminal worker IV access Description of Procedure Patient identified, procedure verified. Time out performed. Conscious sedation administered under my direction. Right neck/chest wall prepped and draped in standard fashion. Right internal jugular vein identified with ultrasound and accessed with micropuncture needle. 5Fr sheath inserted under fluoroscopic control. IV extension tubing placed and confirmed to be venous. 0.035" J-wire inserted and upsized to 7Fr sheath/dilator. Counter incision made and tunneled to connect the puncture site to exit site on right chest wall. 1% lidocaine used throughout. Catheter measured and trimmed to length. Inserted into peel-away sheath and sheath removed under fluoroscopic control. Catheter at tip of SVC/R atrium. Flush/aspirated and instilled with low concentration heparin (catheter to be accessed later today). Biopatch and dressing applied after closing access site with 4-0 Vicryl/dermabond and exit site with 3-0 Nylon. Patient tolerated well without immediate complication. Conscious sedation start 0830, end 0910. 1.5mg versed, 150mcg fentanyl Fluoro 1mGy 0.4 min fluoro time. I attest to the content of the Intraoperative Record and any orders documented therein. Any exceptions are noted below.
[2025-04-18 09:49] LABS: Hematocrit (blood only) 33.2 % (37.0-47.0); Hemoglobin 10.5 g/dl (12.0-16.0); Mean Corpuscular Hemoglobin 27.4 pg (25.0-34.0); Mean Corpuscular Volume 86.7 fL (80.0-100.0); Platelet Count 527 K/uL (130-400); RDW Standard Deviation 44.9 fL (36.4-46.3); Red Blood Count 3.83 M/uL (4.20-5.40); White Blood Count 10.26 K/ul (4.8-10.8)
[2025-04-18 10:16] LABS: Alanine Aminotransferase 34.0 U/L (7-52); Alkaline Phosphatase 121.0 U/L (34-104); Anion Gap 7.0 (3-11); Bilirubin,Total 0.3 mg/dl (0.2-1.0); Blood Urea Nitrogen 17.0 mg/dl (6-23); Calcium 9.3 mg/dl (8.6-10.3); Carbon Dioxide 26.0 mmol/L (21-32); Chloride 106.0 mmol/L (98-107); Creatinine Clr Calc Pharmacy 116.0 ml/min; Glucose 110.0 mg/dl (70-99(Fasting)); Magnesium 2.1 mg/dl (1.7-2.4); Potassium 3.9 mmol/L (3.5-5.1); Sodium 139.0 mmol/L (136-145); Triglycerides 168.0 mg/dl (0-150)
--- NOTE | 2025-04-18 12:22 | Hospitalist Progress Note ---
Date of Service April 18, 2025 Assessment & Plan (1) Severe sepsis with acute organ dysfunction: Plan: Resolved (2) E. coli bacteremia: Plan: Ceftriaxone through 04/24/2025 (3) CLABSI (central line-associated bloodstream infection): (4) Severe protein-calorie malnutrition: (5) Gastrointestinal dysmotility: (6) On total parenteral nutrition (TPN): (7) Chronic pain syndrome: (8) POTS (postural orthostatic tachycardia syndrome): (9) Jaqui-Danlos disease: Plan Patient 29-year-old is dependent on TPN presented with sepsis. Concern for CLABSI. E. coli bacteremia. Chao catheter was removed at the time of admission. Patient has been on Rocephin and blood cultures have cleared Patient underwent Chao catheter placement today Resume TPN per pharmacy assistance and protocol Continue Rocephin Case management to coordinate resumption of her home services, home TPN and coordinate continuing her Rocephin through 04/24/2025. Anticipate discharge tomorrow when logistics have been arranged Admission and Anticipated Discharge Date Admission Date: April 09, 2025 Subjective Patient seen after placement of Chao catheter. Tolerated procedure well. Still somewhat drowsy and sleepy. Denies any significant pain. Physical Exam Physical Exam: Constitutional: Drowsy but does awaken and answer questions HEENT: Mucous membranes moist. Lungs: Clear to auscultation, decreased, no wheezes rales or rhonchi CV: S1-S2, regular Chest: Chao catheter placed in right upper chest, dressing clean dry and int act Abdomen: Soft, nontender, nondistended Extremities: No significant edema Neuro: No focal deficits Psych: Cooperative, normal mood Results & Data Results & Data Vital Signs (Past 12 Hours) Vital Signs Temp Pulse Pulse Resp BP BP Pulse Ox 04/18/25 11:23 36.6 C 81 18 98/65 L 98 04/18/25 10:22 36.6 C 81 16 92/57 L 98 04/18/25 09:50 36.7 C 79 16 93/58 L 96 04/18/25 09:24 36.8 C 90 16 109/74 96 04/18/25 09:10 89 22 125/78 100 04/18/25 09:05 88 17 115/77 100 04/18/25 09:00 90 19 116/87 100 04/18/25 08:55 95 H 14 119/74 100 04/18/25 08:50 98 H 33 H 121/86 100 04/18/25 08:45 92 H 17 111/76 100 04/18/25 08:40 94 H 17 104/71 100 04/18/25 08:35 82 27 H 107/74 100 04/18/25 08:30 87 14 107/76 100 04/18/25 08:25 81 16 110/76 100 04/18/25 07:30 36.7 C 98 H 20 101/69 99 04/18/25 00:32 36.9 C 96 H 16 99/67 L 99 O2 Del Method O2 Flow Rate 04/18/25 11:23 Room Air 04/18/25 10:22 Room Air 04/18/25 09:50 Room Air 04/18/25 09:24 Room Air 04/18/25 09:10 Room Air 04/18/25 09:05 Oxymask 4 04/18/25 09:00 Oxymask 4 04/18/25 08:55 Oxymask 4 04/18/25 08:50 Oxymask 4 04/18/25 08:45 Oxymask 4 04/18/25 08:40 Oxymask 4 04/18/25 08:35 Oxymask 4 04/18/25 08:30 Oxymask 4 04/18/25 08:25 Oxymask 4 04/18/25 07:30 Room Air 04/18/25 00:32 Room Air Diagnostic Findings Reviewed imaging, laboratory and diagnostic studies. Pertinent findings as below. WBCs 10.2 Hemoglobin 10.5 Electrolytes within normal ranges Creatinine 0.53 (3) CLABSI (central line-associated bloodstream infection) Encounter type: subsequent encounter Qualified Code(s): T80.211D - Bloodstream infection due to central venous catheter, subsequent encounter
--- NOTE | 2025-04-18 14:37 | XRay Report ---
XR chest 1V portable CLINICAL HISTORY: s/p central line insertion COMPARISON STUDY: 04/09/2025 FINDINGS: Right central catheter tip is at the right atrium. There is no pneumothorax. No consolidati on or pleural effusion. Heart size and pulmonary vasculature are normal. IMPRESSION: No pneumothorax. ACT 112: Negative or not required by law. Electronically signed by: Alton Paula M.D. 04/18/2025 2:35 PM
[2025-04-18] MEDS: [UNRECOGNIZED DRUG - OTHER] IV SCH (16:04)
[2025-04-18] MEDS: CENTRAL TPN IV SCH (16:04)
[2025-04-18 23:32] VITALS: O2SAT 97
[2025-04-19 07:08] LABS: Anion Gap 6.0 (3-11); Blood Urea Nitrogen 16.0 mg/dl (6-23); Calcium 9.4 mg/dl (8.6-10.3); Carbon Dioxide 27.0 mmol/L (21-32); Chloride 103.0 mmol/L (98-107); Creatinine Clr Calc Pharmacy 119.6 ml/min; Glucose 100.0 mg/dl (70-99(Fasting)); Magnesium 2.1 mg/dl (1.7-2.4); Potassium 3.9 mmol/L (3.5-5.1); Sodium 136.0 mmol/L (136-145)
[2025-04-19 07:19] VITALS: PULSE 90; RESP 16; TEMP 97.9
[2025-04-19] MEDS: HEPARIN 100 UNIT/ML 5ML FLUSH FLUSH PRN (09:40)
--- NOTE | 2025-04-19 10:00 | Discharge Summary ---
Discharge Summary Date of Service April 19, 2025 Principal Dx & Hospital Course #1 = Principal Diagnosis (1) Severe sepsis with acute organ dysfunction: Resolved (2) E. coli bacteremia: Ceftriaxone through 04/24/2025 (3) CLABSI (central line-associated bloodstream infection): (4) Severe protein-calorie malnutrition: (5) Gastrointestinal dysmotility: (6) On total parenteral nutrition (TPN): (7) Chronic pain syndrome: (8) POTS (postural orthostatic tachycardia syndrome): (9) Jaqui-Danlos disease: Plan Patient 29-year-old female with multiple chronic medical issues including severe gastrointestinal dysmotility requires her to be on chronic TPN. Patient has had numerous line infections in the past. Presented to the emergency room with increase of her nausea from her baseline, tachycardic and fever. She was also hypotensive in the emergency room. Patient was admitted to the hospital. Patient's blood cultures grew out E. coli. Surgical consultation was obtained. Her Chao catheter was removed. She was continued on PPN and IV ceftriaxone. Infectious disease consultation was obtained. After review of the cultures and sensitivities and discussion with the patient and family it was agreed upon to treat her with 14 days of IV ceftriaxone from the day of her sterile blood cultures. Surveillance cultures were obtained. 1 out of 4 bottles did grow out Staph epidermidis. Of reviewing these findings with infectious disease this is definitely contaminant and would not need to change our plan of care. Patient will needed a central line for ongoing TPN. Consult vascular surgery. They suggested possibly transfer for pediatric PICC placement. [facility] and [facility] were both contacted. Reviewed the case with them. They both recommended not proceeding with a pediatric PICC but replacing a Chao catheter. Vascular surgery then proceeded with placement of a right sided Chao catheter on 04/18/2025. Post operative course was uneventful. She was restarted on her TPN. Case management was involved throughout her hospitalization. They will coordinate resumption of her home services for TPN and now with ceftriaxone through 04/24/2025. Also to help decrease the risk of recurrent line infections we will trial an ethanol lock and her Chao. This will be coordinated with home services. Patient has an outpatient appointment this coming week at [facility] for GI dysmotility clinic to hopefully give her some additional options or treatments to allow her to eat more of her nutrition and get her through TPN. On the day of discharge her vital signs have been stable. She has been afebrile. Understands the need for ongoing care and follow-up with her outpatient providers. Notes For Next Care Provider Follow-up with specialist as coordinated Continue to educate and stress diligent care of the Chao catheter Medication Changes From Visit Ceftriaxone through 04/24/2025 Admission HPI Per Admitting Provider 29-year-old female with past medical history significant for hypermobile Jaqui- Danlos syndrome, POTS, severe protein calorie malnutrition and GI dysmotility on chronic TPN since 2020, history of chronic nausea, history of recurrent CLABSI, bile reflux gastritis, chronic pain syndrome, CESILIA, history of Helicobacter pylori infection was recently in the hospital for sepsis and E. coli bacteremia and her catheter removed on 03/26/2025 and new Chao catheter Placed on 03/29/2025 again comes because of sepsis. Patient can eat little bit of food. She ate some tacos today.. After that she started feeling sick. She was tac hycardic. Nauseous. And was having fevers. Some abdominal discomfort. In the ER she was tachycardic and hypotensive. Received fluid bolus and Rocephin. Currently nausea is improved. Still blood pressure somewhat on lower side. Lactic acid okay. Chest x-ray is okay. Has chronic cough. Respiratory BioFire negative. Currently denies any headache. Vision is okay. No runny nose or sore throat. No chest pain or shortness of breath. No abdominal pain currently. Somewhat constipated. Not micturated yet in the ER. Past medical history. As mentioned above. Past surgical history. EGD. EGD with biopsy. IR gastrointestinal ostomy. Mediport placement. Left knee arthroscopy. Replacement of gastrostomy tube. Tympanostomy tubes. Social history. No smoking. No alcohol use. No drug use. Family history. Patient is adopted. Admission Exam Per Admitting Provider See H&P Discharge Exam Constitutional: Alert, underweight, nontoxic HEENT: Mucous membranes moist. Lungs: Clear to auscultation, decreased, no wheezes rales or rhonchi CV: S1-S2, regular Chest: Chao catheter right subclavian, dressing clean and dry, no surrounding erythema, tenderness, swelling or ecchymosis. Abdomen: Soft, nontender, nondistended Extremities: No significant edema Neuro: No focal deficits Psych: Cooperative, normal mood Updated Medication List Medication Instructions Recorded Confirmed Type baclofen 10 mg tablet 10 mg PO BID 04/09/25 04/09/25 History cholecalciferol (vitamin D3) 1,250 1,250 mcg PO WK 04/09/25 04/09/25 History mcg (50,000 unit) tablet cyanocobalamin (vitamin B-12) 1,000 mcg IM MONTHLY 04/09/25 04/09/25 History 1,000 mcg/mL injection solution duloxetine 20 mg capsule,delayed 20 mg PO DAILY 04/09/25 04/09/25 History release famotidine 20 mg tablet 20 mg PO BID 04/09/25 04/09/25 History granisetron HCl 1 mg tablet 1 mg PO Q12H 04/09/25 04/09/25 History guaifenesin 600 mg tablet, 600 mg PO Q12H PRN Cough 04/09/25 04/09/25 History extended release 12 hr hydroxyzine HCl 10 mg tablet 50 mg PO QID PRN Anxiety 04/09/25 04/09/25 History linaclotide 145 mcg capsule 145 mcg PO DAILY PRN Constipation 04/09/25 04/09/25 History loratadine 10 mg tablet 10 mg PO DAILY 04/09/25 04/09/25 History montelukast 10 mg tablet 10 mg PO HS 04/09/25 04/09/25 History olanzapine 2.5 mg tablet 2.5 mg PO DAILY 04/09/25 04/09/25 History ondansetron 8 mg disintegrating 8 mg PO Q8H PRN Nausea And Vomiting 04/09/25 04/09/25 History tablet Hospital Stay Data Consultations 04/09/25 03:21 ED Decision to Admit Stat 04/10/25 12:42 Consult General Surgery Routine 04/13/25 10:55 Consult Vascular Surgery Routine 04/13/25 13:39 Consult Patient Rep [Consult Patient Services] Routine Procedures Performed Operation Date: 04/18/25 08:00 Actual Procedures p Chao Catheter Insertion(Right) - Ismael Espana MD Diagnostic Imagining Performed 04/09/25 10:20 CT Abd and Pelvis [CT abd pelvis IV con only] Urgent 04/09/25 13:48 CT chest diagnostic w con Urgent 04/18/25 07:20 EV cvc insrt tunnel wo prt/table games supervisor Routine US EV guide vascular access Routine Reviewed imaging, laboratory and diagnostic studies. Pertinent findings as below. WBCs 10.2 Hemoglobin 10.5 Platelets of 527 BMP within normal range Creatinine 0.51 Other electrolytes within normal range LFTs within normal range Triglycerides 168 Initial blood cultures grew E. coli that was pansensitive, surveillance blood culture grew 1 of 4 bottles Staph epidermidis, this is contaminant Catheter tip had no growth Pending Results Patient Have Any Pending Studies at Discharge: No Discharge Instructions Given to Patient (Per Discharging Provider) Follow-up with your specialists as already scheduled Diligent care of your Chao to reduce risk of infection Ceftriaxone will continue through 04/24/2025 Home Health Attestation I certify that this patient is under my care and that I, or a physicians chiropractor assistant working with me, had a face to-face encounter that meets the home health [id number] encounter requirements with this patient. The encounter with the patient was in whole, or in part, for the following medical condition, which is the primary reason for home health care (list medical condition): I certify that, based on my findings, the following services are medically necessary home health services: My clinical findings support the need for the above services because: Further, I certify that my clinical findings support that this patient is homebound (i.e. absences from home require considerable and taxing effort and are for medical reasons or catholic services or infrequently or of short duration when for other reasons) because: Certification for Home Health Services: Based on the above findings, I certify that this patient is confined to the home and needs intermittent mcc care, physical therapy and/or speech therapy or continues to need occupational therapy. The patient is under my care, and I have initiated the establishment of the plan of care. This patient will be followed by a physician who will periodically review the plan of care. Total Time Total Time Spent Total Time Spent (In Minutes): 40
[2025-04-19 14:05] VITALS: BP 125/78
== END 2025-04-19 14:21 | disposition home or self-care (01) | DRG 314 ==
LOC: ED 00:48 → SUATTDRO 04:46 → EDINP 04:46 → 2E 05:13 → 3E 04-12 15:59

== ENCOUNTER 2025-05-06 06:41 | Inpatient (IN) ==
[2025-05-06] MEDS ORDERED: VANCOMYCIN CONSULT ACTIVE PRN (07:03)
[2025-05-06] MEDS: ONDANSETRON INJ 2 MG/ML 2 ML VIAL IV STA (07:10)
[2025-05-06] MEDS: SODIUM CHLORIDE 0.9% 1,000 ML IV SCH (07:10)
--- NOTE | 2025-05-06 07:16 | Emergency Department Note ---
Impression & Plan Sepsis, On total parenteral nutrition (TPN), Central venous catheter in place, Tachycardia, Transaminitis, Acute hypokalemia ED Provider Note NAME: RICK JENKINS AGE: 29 SEX: F : 1995 ARRIVES VIA: Walk-In INFORMANT: Patient, Mother ED PROVIDER(S): Rikki Lofton DO CHIEF COMPLAINT: nausea and vomiting HPI: This is a 29-year-old female with the PMHx of CVC dependent for hydration/meds, J tube dependence, POTS, severe malnutrition, and Jaqui-Danlos presenting to [facility] for further evaluation of nausea and vomiting. Patient is accompanied by her mother who provide additional history. Patient is reporting ongoing nausea and vomiting for the last few days. She states that she has crampy abdominal pain. She does note constipation. Patient states she is unable to keep anything down. She reports dehydration. She states that she had her central line replaced on Friday. She states the procedure went poorly. She does report low-grade fevers at home. She is reporting a Tmax of 100.2 F. She has some tenderness over the site of the central line. No cough or congestion. Denies chest pain or palpitations. No shortness of breath. No urinary complaints. No recent changes in bowel movements. Patient denies recent changes in medications or OTC supplements. No pain medications or antiemetics prior to arrival. Patient offers no other complaints, today. ADDITIONAL HISTORY OBTAINED: Per HPI Chronic Medical/Social Conditions Affecting Care: Per HPI PAST MEDICAL HISTORY: See Below PAST SURGICAL HISTORY: See Below FAMILY HISTORY: See Below SOCIAL HISTORY: See Below HOME MEDICATIONS: See Below ALLERGIES: See Below VITALS: See Below PHYSICAL EXAMINATION: GENERAL: Sitting up in bed, alert, well appearing, well nourished, no distress, non-toxic EYE EXAM: normal conjunctiva. OROPHARYNX: no exudate, no erythema, lips, buccal mucosa, and tongue normal and mucous membranes are dry NECK: supple, no nuchal rigidity, no adenopathy, non-tender. There is an adhesive bandage over the right neck. No swelling, mass or erythema/warmth present. LUNGS: Clear to auscultation. Normal chest wall mechanics CHEST: There is a right CVC in place over the chest wall. Tenderness to palpation in this area. No significant swelling, erythema or warmth. There are some skin changes that look to be from adhesives. HEART: no murmurs, Tachycardic rate, regular rhythm ABDOMEN: abdomen soft, generalized tenderness, no masses, no rebound or guarding. BACK: Back is symmetrical on inspection and there is no deformity, no midline tenderness, no CVA tenderness. SKIN: no rashes and no bruising UPPER EXTREMITIES: upper extremities are grossly normal. LOWER EXTREMITIES: No pitting edema. NEURO EXAM: Normal sensorium, GCS 15, normal speech, no gross weakness of arms, no gross weakness of legs. MEDICAL DECISION MAKING: Differential diagnoses includes but not limited to gastroenteritis, anesthesia side effect, medication side effect, CVS, nutrition, electrolyte derangements, dehydration, sepsis, bacteremia, central line infection, pneumonia, viral URI, UTI In summary, this is a 29 year old female who presented with nausea and vomiting. Differential as above. Nursing notes and pertinent past medical records reviewed. Vital signs reviewed and the patient is tachycardic but otherwise afebrile and hemodynamically stable. History and presentation revealed complex past medical history including dependence on central line for medications and fluids. Has previously required TPN. Patient has numerous admissions for nausea and vomiting as well as malnutrition and dehydration. Patient's current history is complicated by recent central line exchange. This places her at high risk for infection and complications. Physical examination revealed As above. As a result of my initial evaluation, given the patient's recent procedure as well as tachycardia and low-grade fevers, plan for sepsis alert and further evaluation with blood cultures labs. Will plan for IV fluid resuscitation and broad-spectrum antibiotic as well as antiemetics. Diagnostics interpreted by me include EKG and cardiac monitoring as listed below: -Cardiac Monitoring: An order was placed for continuous cardiac monitoring. The monitor shows a rate of 110-150s with regular rhythm. -ECG: Sinus tachycardia at a rate of [address] segment changes to suggest STEMI. Intervals are otherwise within normal limits. Patient completed laboratory studies and imaging. Results independently interpreted by me are no significant leukocytosis. Transaminitis noted that is likely chronic. Mild hypokalemia and IV replenishment ordered. Electrolytes otherwise unremarkable. Procalcitonin is negative. Viral swabs negative CXR independently interpreted by me reveals no evidence of focal consolidation to suggest pna. No large pneumothorax or pleural effusion. . The patient was managed with IV fluid resuscitation, antiemetics and broad-spectrum antibiotics. Largest concern would be for possible line infection given recent exchange. Patient will need to be closely monitored as an inpatient on broad-spectrum antibiotics. Ultimately, the decision was made to admit the patient for Sepsis versus GI losses and dehydration with concerns for possible line infection. It was recommended to admit this patient at 0809. I discussed the case with the hospitalist service via telephone/TigerText and they are agreeable to admit the patient to their services at 0831. Based on the above, including the patient's age, coexisting illnesses, labs, imaging, and exam findings the decision to treat as an inpatient. I discussed the patient with the hospitalist team who recommended admission to their services. They received the medications, treatments, interventions indicated above and their condition remained guarded. I discussed my findings with the patient and their family and they understand and agree with the treatment plan. All patient / family questions were answered to their satisfaction. Consults/Care Managements Discussions: Per [facility] ER treatment provided: See above Procedures: none Critical Care: None The chart was completed utilizing [employer] Speech voice recognition software. Grammatical errors, random word insertions, pronoun errors, and incomplete sentences are an occasional consequence of this system due to software limitations, ambient noise, and hardware issues. Any formal questions or concerns about the content, text, or information contained within the body of this dictation should be directly addressed to the physician for clarification. Past Med/Surg History Problem List (Updated 05/06/25 @ 15:15 by Rikki Lofton DO) Acute hypokalemia (Acute) Transaminitis (Acute) Ileus Transaminitis Chronic pain syndrome E. coli bacteremia Severe sepsis with acute organ dysfunction Sepsis (Acute) Pneumonitis (Acute) Acute dehydration (Acute) Severe protein-calorie malnutrition (Acute) History of central line-associated bloodstream infection (CLABSI) Bacteremia due to methicillin resistant Staphylococcus epidermidis Infection of venous access port (Acute) Sepsis (Acute) MSSA bacteremia Infection complicating venous access device Bacterial sepsis CLABSI (central line-associated bloodstream infection) Cellulitis (Acute) Bacteremia due to Enterococcus Sepsis Tachycardia (Acute) Central venous catheter in place (Acute) broke- clamped in ER, taped around site Fungemia DVT prophylaxis Encounter for pre-operative examination (~02/07/23) Gastrointestinal dysmotility Close exposure to COVID-19 virus (Acute) Iron deficiency (Acute) Symptomatic anemia (Acute) Chronic pain POTS (postural orthostatic tachycardia syndrome) History of esophagogastroduodenoscopy (EGD) Severe malnutrition (Acute) Abdominal pain, chronic, epigastric (Acute) chronic On total parenteral nutrition (TPN) (Acute) Jaqui-Danlos disease Dx several years ago Medical History Gastrostomy tube in place Anxiety Gastrointestinal dysmotility Reactive hypoglycemia dexcom present to left arm Anemia Neuropathy legs Gastroparesis History of COVID-19 02/2022, not hospitalized 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 Jejunostomy tube present placed October 2020 Surgical History S/P gastrostomy History of removal of Port-a-Cath (05/21/24) Infusaport Removal - Left side(Left) - Alton Garcia DO, FACS History of myringotomy History of surgery (06/24/21) Removal of Right Tunneled Central Line in Internal Jugular Catheter H/O wisdom tooth extraction H/O wrist surgery right S/P knee surgery Left Family History Other Adopted Social History Smoking Status: Never smoker Second Hand Exposure: No; Do You Dip or Chew Tobacco: No; Hx Alcohol Use: No Hx Substance Use: No Preferred Language: Amharic Communication Ability: Effective Sanitation Inspector Required: No Beliefs That Will Affect Care: None Current Living Situation: Parent Current Living Situation Comment: Lives w/ family at home Feels Safe at Home: Yes Assistive Devices: None Allergies Allergies Allergy/AdvReac Type Severity Reaction Status Date / Time diphenhydramine Allergy Severe Urticaria, Verified 05/04/25 14:05 [From Benadryl] severe anxiety, jittery prochlorperazine Allergy Severe Anaphylaxis Verified 05/04/25 14:05 [From Compazine] adhesive Allergy Intermediate Redness, Verified 05/04/25 14:05 swelling gluten Allergy Intermediate Hives, GI Verified 05/04/25 14:05 upset peanut Allergy Intermediate Itchy Verified 05/04/25 14:05 throat tree nut Allergy Intermediate Itchy Verified 05/04/25 14:05 throat pollen extracts Allergy Mild Itchy Verified 05/04/25 14:05 eyes, sneezing, congestion chlorhexidine Allergy Unknown Unknown Verified 05/04/25 14:05 iron [From Venofer] AdvReac Severe Abdominal Verified 05/04/25 14:05 Pain fentanyl AdvReac Intermediate nausea and Verified 05/06/25 10:10 vomiting Latex, Natural Rubber AdvReac Intermediate Redness, Verified 05/04/25 14:05 itchy polyurethane Allergy Hives Uncoded 05/04/25 14:05 polyurethane power port Allergy Itching Uncoded 05/04/25 14:05 Home Meds Home Medications Medication Instructions Recorded Confirmed baclofen 10 mg tablet 10 mg PO BID 04/09/25 05/06/25 cholecalciferol (vitamin D3) 1,250 1,250 mcg PO WK 04/09/25 05/06/25 mcg (50,000 unit) tablet cyanocobalamin (vitamin B-12) 1,000 mcg IM MONTHLY 04/09/25 05/06/25 1,000 mcg/mL injection solution duloxetine 20 mg capsule,delayed 20 mg PO DAILY 04/09/25 05/06/25 release famotidine 20 mg tablet 20 mg PO BID 04/09/25 05/06/25 linaclotide 145 mcg capsule 145 mcg PO DAILY PRN Constipation 04/09/25 05/06/25 loratadine 10 mg tablet 10 mg PO DAILY 04/09/25 05/06/25 montelukast 10 mg tablet 10 mg PO HS 04/09/25 05/06/25 olanzapine 2.5 mg tablet 2.5 mg PO HS 04/09/25 05/06/25 ondansetron 8 mg disintegrating 8 mg PO Q8H PRN Nausea And Vomiting 04/09/25 05/06/25 tablet erythromycin ethylsuccinate 200 100 mg PO TID 05/06/25 05/06/25 mg/5 mL oral powder for suspension hydroxyzine HCl 50 mg tablet 50 mg PO QID PRN Anxiety 05/06/25 05/06/25 prucalopride 2 mg tablet 2 mg PO DAILY 05/06/25 05/06/25 Results & Data (ED) Vital Signs Vital Signs - 24 hr 05/06/25 06:45 05/06/25 07:04 05/06/25 07:04 Temperature 37.6 C H Temperature Source Oral Pulse Rate 143 H 117 H Pulse Rate [Apical] 115 H Respiratory Rate 17 20 20 Respiratory Effort / Characteristics Non-Labored Spontaneous Non-Labored Spontaneous Respiratory Depth Normal Normal Respiratory Pattern Regular Regular Blood Pressure 118/79 Blood Pressure [Right Arm] 107/75 Blood Pressure Mean 92 Blood Pressure Mean [Right Arm] 85 Blood Pressure Position [Right Arm] Sitting Pulse Oximetry 95 100 99 Oxygen Delivery Method Room Air Room Air Room Air Sepsis Recent Fever Within 48 Hours Yes Sepsis New/Unexplained Change in Mental Status No Sepsis Action Taken by Nursing No Action Required 05/06/25 07:09 05/06/25 08:30 Temperature Temperature Source Pulse Rate 120 H Pulse Rate [Apical] 119 H Respiratory Rate 18 Respiratory Effort / Characteristics Non-Labored Spontaneous Respiratory Depth Normal Respiratory Pattern Regular Blood Pressure Blood Pressure [Right Arm] 109/67 Blood Pressure Mean Blood Pressure Mean [Right Arm] 81 Blood Pressure Position [Right Arm] Sitting Pulse Oximetry 97 Oxygen Delivery Method Room Air Sepsis Recent Fever Within 48 Hours Sepsis New/Unexplained Change in Mental Status Sepsis Action Taken by Nursing Laboratory Data 05/06/25 07:01 05/06/25 07:01 Lab Results 05/06/25 05/06/25 05/06/25 Range/Units 07:01 07:07 07:16 WBC 7.17 (4.8-10.8) K/ul RBC 4.54 (4.20-5.40) M/uL Hgb 12.5 (12.0-16.0) g/dl Hct 39.0 (37.0-47.0) % MCV 85.9 (80.0-100.0) fL MCH 27.5 (25.0-34.0) pg MCHC 32.1 (32.0-36.0) g/dL RDW Std Deviation 43.7 (36.4-46.3) fL RDW Coeff of Priscilla 13.8 (11.5-14.5) % Plt Count 321 (130-400) K/uL MPV 9.1 L (9.4-12.4) fL Immature Gran % (Auto) 0.4 % Neut % (Auto) 80.7 % Lymph % (Auto) 12.0 % Wetzel % (Auto) 5.9 % Eos % (Auto) 0.4 % Baso % (Auto) 0.6 % Neut # (Auto) 5.79 (1.40-6.50) K/uL Lymph # (Auto) 0.86 L (1.20-3.40) K/uL Wetzel # (Auto) 0.42 (0.11-0.59) K/uL Eos # (Auto) 0.03 (0.00-0.50) K/uL Baso # (Auto) 0.04 (0.00-0.20) K/uL Immature Gran # (Auto) 0.03 (0.01-0.20) K/uL Sodium 139 (136-145) mmol/L Potassium 3.4 L (3.5-5.1) mmol/L Chloride 103 (98-107) mmol/L Carbon Dioxide 26 (21-32) mmol/L Anion Gap 10 (3-11) BUN 9 (6-23) mg/dl Creatinine 0.83 (0.6-1.2) mg/dl Est Cr Clr Drug Dosing 73.0 ml/min eGFR 99.03 BUN/Creatinine Ratio 10.8 (10-20) Glucose 115 H (70-99(Fasting)) mg/dl Lactate 1.6 (0.4-2.0) mmol/L Calcium 9.5 (8.6-10.3) mg/dl Phosphorus 3.6 (2.5-4.9) mg/dl Magnesium 2.0 (1.7-2.4) mg/dl Total Bilirubin 0.6 (0.2-1.0) mg/dl Direct Bilirubin 0.1 (0-0.2) mg/dl AST 76 H (13-39) U/L ALT 55 H (7-52) U/L Alkaline Phosphatase 115 H (34-104) U/L Troponin I High Sens 4.7 (0-14) pg/ml Total Protein 8.5 H (6.0-8.3) gm/dl Albumin 4.2 (3.4-5.0) gm/dl Procalcitonin 0.22 (0-0.5) ng/ml Nasal Screen MRSA (PCR) Negative (Negative) Adenovirus (PCR) Not Detected (NotDetected) B. pertussis DNA (PCR) Not Detected (NotDetected) B.parapertussis DNA PCR Not Detected (NotDetected) C. pneumoniae DNA (PCR) Not Detected (NotDetected) Coronavirus OC43 (PCR) Not Detected (NotDetected) Coronavirus HKU1 (PCR) Not Detected (NotDetected) Coronavirus 229E (PCR) Not Detected (NotDetected) SARS-CoV-2 (PCR) Not Detected (NotDetected) Coronavirus NL63 (PCR) Not Detected (NotDetected) Human Metapneumovir PCR Not Detected (NotDetected) Influenza Type A (PCR) Not Detected (NotDetected) Influenza Type B (PCR) Not Detected (NotDetected) M. pneumoniae (PCR) Not Detected (NotDetected) Parainfluenza 1 (PCR) Not Detected (NotDetected) Parainfluenza 2 (PCR) Not Detected (NotDetected) Parainfluenza 3 (PCR) Not Detected (NotDetected) Parainfluenza 4 (PCR) Not Detected (NotDetected) RSV (PCR) Not Detected (NotDetected) Entero/Rhino (PCR) Not Detected (NotDetected) Administered Medications Sodium Chloride (Nss) 1,000 mls @ 200 mls/hr IV .Q5H ONE Stop: 05/06/25 15:28 Last Infusion: 05/06/25 13:37 Dose: 0 mls/hr Documented By: adis Admin: 05/06/25 11:24 Dose: 200 mls/hr Documented By: AZEEM Parenteral Electrolytes (Plasma-Lyte A Ph 7.4) 1,000 mls @ 100 mls/hr IV .Q10H ZULY Stop: 05/09/25 10:33 Last Admin: 05/06/25 11:09 Dose: 100 mls/hr Documented By: AZEEM Famotidine (Pepcid 20mg Iv Push) 20 mg in 5 mls @ 2.5 mls/min IV Q12H ZULY Stop: 06/05/25 11:44 Last Admin: 05/06/25 12:28 Dose: 2.5 mls/min Documented By: AZEEM Discontinued Medications Sodium Chloride (Nss) 1,000 mls @ 999 mls/hr IV .Q1H1M ZULY Stop: 05/06/25 08:15 Last Infusion: 05/06/25 08:27 Dose: Infused Documented By: Admin: 05/06/25 07:10 Dose: 999 mls/hr Documented By: MASON Vancomycin HCl 1,000 mg/ (Sodium Chloride) 500 mls @ 200 mls/hr IV NOW STA Stop: 05/06/25 09:32 Last Infusion: 05/06/25 11:30 Dose: Infused Documented By: Admin: 05/06/25 08:13 Dose: 200 mls/hr Documented By: MASON Cefepime HCl (Maxipime 2000mg) 2,000 mg in 20 mls @ 5 mls/min IV NOW STA; Protocol Stop: 05/06/25 07:06 Last Admin: 05/06/25 08:13 Dose: 5 mls/min Documented By: MASON Parenteral Electrolytes (Plasma-Lyte A Ph 7.4) 1,000 mls @ 999 mls/hr IV .Q1H1M ONE Stop: 05/06/25 08:50 Last Infusion: 05/06/25 09:21 Dose: Infused Documented By: Admin: 05/06/25 08:16 Dose: 999 mls/hr Documented By: MASON Potassium Chloride (K Joe / Wtr) 10 meq in 100 mls @ 100 mls/hr IV Q1H ZULY Stop: 05/06/25 11:44 Last Admin: 05/06/25 14:24 Dose: 100 mls/hr Documented By: adis Infusion: 05/06/25 12:26 Dose: Infused Documented By: Admin: 05/06/25 11:24 Dose: 100 mls/hr Documented By: AZEEM Acetaminophen (Ofirmev) 1,000 mg in 100 mls @ 400 mls/hr IV NOW STA Stop: 05/06/25 10:44 Last Infusion: 05/06/25 11:00 Dose: Infused Documented By: Admin: 05/06/25 10:40 Dose: 400 mls/hr Documented By: AZEEM Albumin Human (Albumin 25%) 25 gm in 100 mls @ 50 mls/hr IV ONE ONE Stop: 05/06/25 13:42 Last Admin: 05/06/25 14:00 Dose: 50 mls/hr Documented By: adis Ioversol (Optiray 320 100ml) 94 ml IV ONCE ONE Stop: 05/06/25 11:19 Last Admin: 05/06/25 11:18 Dose: 94 ml Documented By: PATRICE Lorazepam (Lorazepam 1 Mg/1 Ml Syr Ed Inj Use) 0.5 mg IV ONE STA Stop: 05/06/25 09:31 Last Admin: 05/06/25 09:40 Dose: 0.5 mg Documented By: MASON Ondansetron HCl (Ondansetron Inj 2 Mg/Ml 2 Ml Vial) 4 mg IV NOW STA Stop: 05/06/25 07:04 Last Admin: 05/06/25 07:10 Dose: 4 mg Documented By: MASON Imaging Data Radiologist's Impression: Chest X-Ray 05/06/25 07:04 EXAM: XR chest 1V portable CLINICAL HISTORY: Sepsis. TECHNIQUE: An X-ray image of the chest was obtained in AP projection. COMPARISON: 05/02/2025. FINDINGS: Pulmonary Parenchyma: A central venous line is seen in situ, with the tip at the cavoatrial junction. The lungs are clear bilaterally. There is no evidence of consolidation, collapse, or focal opacities. No pulmonary nodules are identified. There is no evidence of pleural effusion or pleural thickening. Heart and Mediastinum: The heart size and shape are normal. There is no mediastinal widening or masses. There is no hilar or mediastinal lymphadenopathy. Bony Thorax: The bony thorax appears intact, without fractures or deformities. Soft Tissues: The soft tissues overlying the chest wall are unremarkable. IMPRESSION: 1. No acute cardiopulmonary abnormality is seen. 2. A central venous catheter is seen in situ, with the tip at the cavoatrial junction. 3. No interval changes. Electronically signed by Rhett Butler 05-06-2025 08:11 AM Discharge Plan Visit Data Chief Complaint: Vomiting Stated Complaint: SHAKY,VOMITING,NAUSEA,LOW FEVER ED Provider: Rikki Lofton Discharge Problem: Sepsis, On total parenteral nutrition (TPN), Central venous catheter in place, Tachycardia, Transaminitis, Acute hypokalemia Patient Disposition: Admitted As Inpatient Condition: Serious Discharge Instructions Interventions: ED Discharge Assessment Last Done: 05/06/25 12:34
[2025-05-06 07:27] LABS: Hematocrit (blood only) 39.0 % (37.0-47.0); Hemoglobin 12.5 g/dl (12.0-16.0); Immature Granulocytes # (auto) 0.03 K/uL (0.01-0.20); Immature Granulocytes % (auto) 0.4 %; Mean Corpuscular Hemoglobin 27.5 pg (25.0-34.0); Mean Corpuscular Volume 85.9 fL (80.0-100.0); Platelet Count 321 K/uL (130-400); RDW Standard Deviation 43.7 fL (36.4-46.3); Red Blood Count 4.54 M/uL (4.20-5.40); White Blood Count 7.17 K/ul (4.8-10.8)
[2025-05-06 07:46] LABS: Alanine Aminotransferase 55.0 U/L (7-52); Albumin Level 4.2 gm/dl (3.4-5.0); Alkaline Phosphatase 115.0 U/L (34-104); Anion Gap 10.0 (3-11); Bilirubin,Total 0.6 mg/dl (0.2-1.0); Blood Urea Nitrogen 9.0 mg/dl (6-23); Calcium 9.5 mg/dl (8.6-10.3); Carbon Dioxide 26.0 mmol/L (21-32); Chloride 103.0 mmol/L (98-107); Creatinine Clr Calc Pharmacy 73.0 ml/min; Glucose 115.0 mg/dl (70-99(Fasting)); Magnesium 2.0 mg/dl (1.7-2.4); Potassium 3.4 mmol/L (3.5-5.1); Sodium 139.0 mmol/L (136-145); Total Protein 8.5 gm/dl (6.0-8.3)
--- NOTE | 2025-05-06 08:11 | XRay Report ---
EXAM: XR chest 1V portable CLINICAL HISTORY: Sepsis. TECHNIQUE: An X-ray image of the chest was obtained in AP projection. COMPARISON: 05/02/2025. FINDINGS: Pulmonary Parenchyma: A central venous line is seen in situ, with the tip at the cavoatrial junction. The lungs are clear bilaterally. There is no evidence of consolidation, collapse, or focal opacities. No pulmonary nodules are identified. There is no evidence of pleural effusion or pleural thickening. Heart and Mediastinum: The heart size and shape are normal. There is no mediastinal widening or masses. There is no hilar or mediastinal lymphadenopathy. Bony Thorax: The bony thorax appears intact, without fractures or deformities. Soft Tissues: The soft tissues overlying the chest wall are unremarkable. IMPRESSION: 1. No acute cardiopulmonary abnormality is seen. 2. A central venous catheter is seen in situ, with the tip at the cavoatrial junction. 3. No interval changes. Electronically signed by Rhett Butler 05-06-2025 08:11 AM
[2025-05-06] MEDS: CEFEPIME 2000MG 2,000 MG/20 ML SYR IV STA (08:13)
[2025-05-06] MEDS: VANCOMYCIN HCL 1,000 MG in SODIUM CHLORIDE 0.9% 500 ML IV STA (08:13)
[2025-05-06] MEDS: PLASMA-LYTE A 1,000 ML IV ONE (08:16)
[2025-05-06 08:22] LABS: Chlamydia pneumoniae PCR Not Detected (NotDetected); Coronavirus 229E PCR Not Detected (NotDetected); Coronavirus CoV-2 (COVID19)PCR Not Detected (NotDetected); Coronavirus HKU1 PCR Not Detected (NotDetected); Coronavirus NL63 PCR Not Detected (NotDetected); Coronavirus OC43PCR Not Detected (NotDetected); Human Metapneumovirus PCR Not Detected (NotDetected); Parainfluenza Virus 1 PCR Not Detected (NotDetected); Parainfluenza Virus 2 PCR Not Detected (NotDetected); Parainfluenza Virus 3 PCR Not Detected (NotDetected); Parainfluenza Virus 4 PCR Not Detected (NotDetected); Respiratory Syncytial VirusPCR Not Detected (NotDetected); Rhinovirus/Enterovirus PCR Not Detected (NotDetected)
[2025-05-06] MEDS: LORazepam 1 MG/1 ML SYR ED Inj Use IV STA (09:40)
--- NOTE | 2025-05-06 10:16 | History & Physical Report ---
Date of Service May 06, 2025 Assessment & Plan (1) Sepsis: (2) History of central line-associated bloodstream infection (CLABSI): Plan: Admit to [facility] with telemetry Patient presenting from home for evaluation of nausea, vomiting, chills, rigors. Patient recently admitted to [facility] 04/09 through 04/19 for E. coli bacteremia. right-sided Chao catheter placed on 04/18. Patient was discharged on IV ceftriaxone and completed 14 days of therapy. Chao catheter became nonfunctioning and patient underwent replacement on 05/02/2025. In the ED, patient had low-grade temp at 37.6, tachycardia, no leukocytosis, normal lactate, BP stable. Full RVP negative. Patient was given IV cefepime, IV lorazepam, IV Zofran, IVF, IV Vanco. Shortly after my exam patient developed fever 39.3. Meets sepsis criteria with fever, tachycardia. S/p cefepime and Vanco, continue with both IVF Follow blood cultures (peripheral and from Chao) Follow fungal culture Follow UA and urine culture Leave Chao in place for now however will not use CT ABD/pelvis (3) Transaminitis: Plan: Mild, may be due to sepsis AST 76, ALT 55, alk phos 115, T. bili 0.1 CT ABD/pelvis (4) On total parenteral nutrition (TPN): (5) Gastrointestinal dysmotility: Plan: Patient was recently evaluated at [place] and started on prucalopride (has not started yet) and erythromycin. 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 Jang. I spent a total of 75 minutes coordinating, documenting, and providing care for this patient excluding time spent in the performance of separately billed services. This included personally reviewing all current laboratories and imaging studies, medication reconciliation, outpatient chart review, and discussion with specialists. History of Present Illness Chief Complaint: Nausea, vomiting, chills Primary Care Provider: Meek Lopez MD 29-year-old female with PMH Jaqui-Danlos syndrome, POTS, chronic pain syndrome, TPN dependence, chronic GI dysmotility currently being followed at [place], recurrent central line infections and bacteremia, and other problems li sted below who presents to the ED for evaluation of nausea, vomiting, chills. Patient recently admitted to [facility] 04/09 through 04/19 for E. coli bacteremia. right-sided Chao catheter placed on 04/18. Patient was discharged on IV ceftriaxone and completed 14 days of therapy. Patient was evaluated at [place] and started on prucalopride (has not started yet) an erythromycin. Chao catheter became nonfunctioning and patient underwent replacement on 05/02/2025. Patient reports the following day she developed nausea and vomiting which she attributed to the fentanyl she received during the procedure. Reports she continued to feel poorly and this morning she had rigors, chills, low-grade fever. She then presented to the ED for further evaluation. Patient denies chest pain, palpitations, shortness of breath, cough and sputum production. No urinary symptoms. In the ED, patient had low-grade temp at 37.6, tachycardia, no leukocytosis. Full RVP negative. Patient was given IV cefepime, IV lorazepam, IV Zofran, IVF, IV Vanco. Shortly after my exam patient developed fever 39.3. Allergies Allergy/AdvReac Type Severity Reaction Status Date / Time diphenhydramine Allergy Severe Urticaria, Verified 05/04/25 14:05 [From Benadryl] severe anxiety, jittery prochlorperazine Allergy Severe Anaphylaxis Verified 05/04/25 14:05 [From Compazine] adhesive Allergy Intermediate Redness, Verified 05/04/25 14:05 swelling gluten Allergy Intermediate Hives, GI Verified 05/04/25 14:05 upset peanut Allergy Intermediate Itchy Verified 05/04/25 14:05 throat tree nut Allergy Intermediate Itchy Verified 05/04/25 14:05 throat pollen extracts Allergy Mild Itchy Verified 05/04/25 14:05 eyes, sneezing, congestion chlorhexidine Allergy Unknown Unknown Verified 05/04/25 14:05 iron [From Venofer] AdvReac Severe Abdominal Verified 05/04/25 14:05 Pain fentanyl AdvReac Intermediate nausea and Verified 05/06/25 10:10 vomiting Latex, Natural Rubber AdvReac Intermediate Redness, Verified 05/04/25 14:05 itchy polyurethane Allergy Hives Uncoded 05/04/25 14:05 polyurethane power port Allergy Itching Uncoded 05/04/25 14:05 Home Medications Medication Instructions Recorded Confirmed Type baclofen 10 mg tablet 10 mg PO BID 04/09/25 05/06/25 History cholecalciferol (vitamin D3) 1,250 1,250 mcg PO WK 04/09/25 05/06/25 History mcg (50,000 unit) tablet cyanocobalamin (vitamin B-12) 1,000 mcg IM MONTHLY 04/09/25 05/06/25 History 1,000 mcg/mL injection solution duloxetine 20 mg capsule,delayed 20 mg PO DAILY 04/09/25 05/06/25 History release famotidine 20 mg tablet 20 mg PO BID 04/09/25 05/06/25 History linaclotide 145 mcg capsule 145 mcg PO DAILY PRN Constipation 04/09/25 05/06/25 History loratadine 10 mg tablet 10 mg PO DAILY 04/09/25 05/06/25 History montelukast 10 mg tablet 10 mg PO HS 04/09/25 05/06/25 History olanzapine 2.5 mg tablet 2.5 mg PO HS 04/09/25 05/06/25 History ondansetron 8 mg disintegrating 8 mg PO Q8H PRN Nausea And Vomiting 04/09/25 05/06/25 History tablet erythromycin ethylsuccinate 200 100 mg PO TID 05/06/25 05/06/25 History mg/5 mL oral powder for suspension hydroxyzine HCl 50 mg tablet 50 mg PO QID PRN Anxiety 05/06/25 05/06/25 History prucalopride 2 mg tablet 2 mg PO DAILY 05/06/25 05/06/25 History Past Med/Surg History Problem List (Updated 05/06/25 @ 10:55 by ZA Fan) Transaminitis Chronic pain syndrome E. coli bacteremia Severe sepsis with acute organ dysfunction Sepsis (Acute) Pneumonitis (Acute) Acute dehydration (Acute) Severe protein-calorie malnutrition (Acute) History of central line-associated bloodstream infection (CLABSI) Bacteremia due to methicillin resistant Staphylococcus epidermidis Infection of venous access port (Acute) Sepsis (Acute) MSSA bacteremia Infection complicating venous access device Bacterial sepsis CLABSI (central line-associated bloodstream infection) Cellulitis (Acute) Bacteremia due to Enterococcus Sepsis Tachycardia (Acute) Central venous catheter in place broke- clamped in ER, taped around site Fungemia DVT prophylaxis Encounter for pre-operative examination (~02/07/23) Gastrointestinal dysmotility Close exposure to COVID-19 virus (Acute) Iron deficiency (Acute) Symptomatic anemia (Acute) Chronic pain POTS (postural orthostatic tachycardia syndrome) History of esophagogastroduodenoscopy (EGD) Severe malnutrition (Acute) Abdominal pain, chronic, epigastric (Acute) chronic On total parenteral nutrition (TPN) Jaqui-Danlos disease Dx several years ago Medical History Gastrostomy tube in place Anxiety Gastrointestinal dysmotility Reactive hypoglycemia dexcom present to left arm Anemia Neuropathy legs Gastroparesis History of COVID-19 02/2022, not hospitalized 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 Jejunostomy tube present placed October 2020 Surgical History S/P gastrostomy History of removal of Port-a-Cath (05/21/24) Infusaport Removal - Left side(Left) - Alton Garcia DO, FACS History of myringotomy History of surgery (06/24/21) Removal of Right Tunneled Central Line in Internal Jugular Catheter H/O wisdom tooth extraction H/O wrist surgery right S/P knee surgery Left Family History Other Adopted Social History Smoking Status: Never smoker Second Hand Exposure: No; Do You Dip or Chew Tobacco: No; Hx Alcohol Use: No Hx Substance Use: No Preferred Language: Mongolian Communication Ability: Effective Medical Affairs Leader Required: No Beliefs That Will Affect Care: None Current Living Situation: Parent Current Living Situation Comment: Lives w/ family at home Feels Safe at Home: Yes Assistive Devices: None Review of Systems Review of Systems: All systems reviewed & are unremarkable except as noted in HPI & below Physical Exam Constitutional: + thin; no acute distress Respiratory: normal respiratory effort, lungs clear to auscultation Cardiovascular: Rate/Rhythm: regular rhythm and + tachycardic Vessels: normal peripheral pulses Extremities: no edema Gastrointestinal (Abdomen): Percussion/Palpation: abdomen soft; abdomen nontender Skin: no rashes, warm and dry Neurologic: no focal motor deficits Psychiatric: A+Ox3, euthymic affect Results & Data Results & Data Vital Signs (Past 12 Hours) Vital Signs Temp Pulse Pulse Resp BP BP Pulse Ox 05/06/25 09:27 147 H 20 113/71 97 05/06/25 08:30 119 H 18 109/67 97 05/06/25 07:09 120 H 05/06/25 07:04 115 H 20 107/75 99 05/06/25 07:04 117 H 20 100 05/06/25 06:45 37.6 C H 143 H 17 118/79 95 O2 Del Method 05/06/25 09:27 Room Air 05/06/25 08:30 Room Air 05/06/25 07:09 05/06/25 07:04 Room Air 05/06/25 07:04 Room Air 05/06/25 06:45 Room Air Laboratory Results 05/06/25 05/06/25 05/06/25 Range/Units 07:16 07:07 07:01 WBC 7.17 (4.8-10.8) K/ul RBC 4.54 (4.20-5.40) M/uL Hgb 12.5 (12.0-16.0) g/dl Hct 39.0 (37.0-47.0) % MCV 85.9 (80.0-100.0) fL MCH 27.5 (25.0-34.0) pg MCHC 32.1 (32.0-36.0) g/dL RDW Std Deviation 43.7 (36.4-46.3) fL RDW Coeff of Priscilla 13.8 (11.5-14.5) % Plt Count 321 (130-400) K/uL MPV 9.1 L (9.4-12.4) fL Immature Gran % (Auto) 0.4 % Neut % (Auto) 80.7 % Lymph % (Auto) 12.0 % Cassia % (Auto) 5.9 % Eos % (Auto) 0.4 % Baso % (Auto) 0.6 % Neut # (Auto) 5.79 (1.40-6.50) K/uL Lymph # (Auto) 0.86 L (1.20-3.40) K/uL Cassia # (Auto) 0.42 (0.11-0.59) K/uL Eos # (Auto) 0.03 (0.00-0.50) K/uL Baso # (Auto) 0.04 (0.00-0.20) K/uL Immature Gran # (Auto) 0.03 (0.01-0.20) K/uL Sodium 139 (136-145) mmol/L Potassium 3.4 L (3.5-5.1) mmol/L Chloride 103 (98-107) mmol/L Carbon Dioxide 26 (21-32) mmol/L Anion Gap 10 (3-11) BUN 9 (6-23) mg/dl Creatinine 0.83 (0.6-1.2) mg/dl Est Cr Clr Drug Dosing 73.0 ml/min eGFR 99.03 BUN/Creatinine Ratio 10.8 (10-20) Glucose 115 H (70-99(Fasting)) mg/dl Lactate 1.6 (0.4-2.0) mmol/L Calcium 9.5 (8.6-10.3) mg/dl Phosphorus 3.6 (2.5-4.9) mg/dl Magnesium 2.0 (1.7-2.4) mg/dl Total Bilirubin 0.6 (0.2-1.0) mg/dl Direct Bilirubin 0.1 (0-0.2) mg/dl AST 76 H (13-39) U/L ALT 55 H (7-52) U/L Alkaline Phosphatase 115 H (34-104) U/L Troponin I High Sens 4.7 (0-14) pg/ml Total Protein 8.5 H (6.0-8.3) gm/dl Albumin 4.2 (3.4-5.0) gm/dl Procalcitonin 0.22 (0-0.5) ng/ml Nasal Screen MRSA (PCR) Negative (Negative) Adenovirus (PCR) Not Detected (NotDetected) B. pertussis DNA (PCR) Not Detected (NotDetected) B.parapertussis DNA PCR Not Detected (NotDetected) C. pneumoniae DNA (PCR) Not Detected (NotDetected) Coronavirus OC43 (PCR) Not Detected (NotDetected) Coronavirus HKU1 (PCR) Not Detected (NotDetected) Coronavirus 229E (PCR) Not Detected (NotDetected) SARS-CoV-2 (PCR) Not Detected (NotDetected) Coronavirus NL63 (PCR) Not Detected (NotDetected) Human Metapneumovir PCR Not Detected (NotDetected) Influenza Type A (PCR) Not Detected (NotDetected) Influenza Type B (PCR) Not Detected (NotDetected) M. pneumoniae (PCR) Not Detected (NotDetected) Parainfluenza 1 (PCR) Not Detected (NotDetected) Parainfluenza 2 (PCR) Not Detected (NotDetected) Parainfluenza 3 (PCR) Not Detected (NotDetected) Parainfluenza 4 (PCR) Not Detected (NotDetected) RSV (PCR) Not Detected (NotDetected) Entero/Rhino (PCR) Not Detected (NotDetected) Diagnostic Findings Chest X-Ray 05/06/25 07:04 EXAM: XR chest 1V portable CLINICAL HISTORY: Sepsis. TECHNIQUE: An X-ray image of the chest was obtained in AP projection. COMPARISON: 05/02/2025. FINDINGS: Pulmonary Parenchyma: A central venous line is seen in situ, with the tip at the cavoatrial junction. The lungs are clear bilaterally. There is no evidence of consolidation, collapse, or focal opacities. No pulmonary nodules are identified. There is no evidence of pleural effusion or pleural thickening. Heart and Mediastinum: The heart size and shape are normal. There is no mediastinal widening or masses. There is no hilar or mediastinal lymphadenopathy. Bony Thorax: The bony thorax appears intact, without fractures or deformities. Soft Tissues: The soft tissues overlying the chest wall are unremarkable. IMPRESSION: 1. No acute cardiopulmonary abnormality is seen. 2. A central venous catheter is seen in situ, with the tip at the cavoatrial junction. 3. No interval changes. Electronically signed by Rhett Butler 05-06-2025 08:11 AM Code Status & VTE Plan VTE Prophylaxis Plan VTE Prophylaxis will be ordered: Yes Supervising Physician Co-Signing Physician Notes Pt seen and examined by me, care coordinated w/ L. ZA Pop , pls refer to her note above for further detail. 29 yo F with Jaqui-Danlos syndrome, POTS, chronic pain syndrome, TPN dependence, chronic GI dysmotility currently being followed at [place], recurrent central line infections, bacteremia, hx of fungemia, who presents to the ED for evaluation of nausea, vomiting, chills. Patient recently admitted to [facility] 04/09 through 04/19 for E. coli bacteremia. right-sided Chao catheter placed on 04/18. Patient was discharged on IV ceftriaxone and completed 14 days of therapy. Patient was evaluated at [place] and started on prucalopride (has not started yet) an erythromycin. Chao catheter became nonfunctioning and floridalma marroquin underwent replacement on 05/02/2025. Patient reports she was vomiting right after her procedure and reports this to be secondary to fentanyl. Reports she continued to feel poorly for next few days however yesterday started with chills, and this AM started to have rigors. initially in ED found to have low grade fever. Blood cultx were obtained and she was started on vancomycin and cefepime. She is tachycardic in ED on my evaluation. No leukocytosis. After she received IVF in ED, now with fever 39.3C. She is lying down in bed on her right side, covered with several blankets. Her mother is present at the bedside and also helps provide hx. Pt is awake, alert, able to provide history , reports not feeling well. Denies any cough or any trouble breathing. Says she was feeling palpitations for some time. + constipation. Not urinating much lately. Does not report any change / pain in her abdomen. Pt is tachycardic, lungs clear, abdomen soft, nontender, gtube present, no erythema, edema noted around. + R upper chest Chao, w/o any drainage or significant erythema noted. pt is moving extremities. Fungal blood cultx also ordered. UA ordered in ED - pending collection. CXR negat. Resp. biofire negative. Cont. broad spectrum antibiotics, IVF. Replete electrolytes (K), check phos. Cont. to closely monitor. If bacteremia/fungemia confirmed - will likely need central line removed again / discuss with infectious disease further course. MD Laine
[2025-05-06] MEDS ORDERED: ACETAMINOPHEN 325 MG TAB PO PRN (10:34)
[2025-05-06] MEDS: ACETAMINOPHEN 1,000 MG/100 ML VIAL IV STA (10:40)
--- NOTE | 2025-05-06 11:01 | Pharmacy Report ---
Pharmacy PK ABX Note - Date of Service May 06, 2025 - Assessment and Plan Assessment 29 year old F receiving vancomycin and cefepime empirically in setting of sepsis. History of CLABSI and recent admission with Chao replacement. On chronic TPN. Blood cultures pending, MRSA nasal (-). SCr ~ doubled from baseline (0.83, baseline ~ 0.45-0.5mg/dL). Day # 1 of antimicrobial therapy. Plan Vancomycin * Loading dose: 1000 mg IV x 1 * Maintenance dose: 1000 mg IV every 12 hours * Regimen is predicted to achieve target AUC/BRITT of 400-600 mg/L.hr * Follow up labs tomorrow AM as likely will require early dose adjustment if SCr returns to baseline- Will obtain a level if therapy continues beyond 48h. Pharmacy will continue to follow and will adjust dose/frequency as necessary. Thank you. Pharmacy has transitioned to AUC monitoring for vancomycin. AUC/BRITT is the preferred PK/PD target and is associated with decreased risk of nephrotoxicity compared to traditional trough targets.
[2025-05-06] MEDS: PLASMA-LYTE A 1,000 ML IV SCH (11:09)
[2025-05-06] MEDS: OPTIRAY 320 100ml IV ONE (11:18)
[2025-05-06] MEDS: SODIUM CHLORIDE 0.9% 1,000 ML IV ONE (11:24)
[2025-05-06] MEDS: POTASSIUM CHLORIDE / WTR 10 MEQ/100 ML PLCT IV SCH (11:24)
[2025-05-06] MEDS: FAMOTIDINE 20MG IV PUSH 20 MG/5 ML SYR IV SCH (12:28)
--- NOTE | 2025-05-06 13:19 | CT Scan Report ---
CT OF THE ABDOMEN AND PELVIS WITHOUT CONTRAST CLINICAL HISTORY: sepsis,nausea, hx of ovarian cyst COMPARISON STUDY: 04/09/2025 TECHNIQUE: Axial images of the abdomen and pelvis were obtained without IV contrast. Images were revi ewed in the axial, sagittal, and coronal planes. Automated exposure control was utilized for the makayla dy. A dose lowering technique was utilized adhering to the principles of ALARA. FINDINGS: Lung bases: There are bibasilar dependent atelectatic changes. There is a nonspecific wispy airspace opacity within the right middle lobe. This remains unchanged from the prior study. There is a partial ly visualized 5 mm left lower lobe partially solid and groundglass nodule. This is a new finding. Liver: No hepatic masses are visualized in this noncontrast study. Gallbladder: Somewhat contracted. No calculi identified. Spleen: No splenic masses are visualized. Pancreas: Chronic masses are visualized. Adrenal glands: Neither adrenal gland is pathologically enlarged. Kidneys: There are no renal, ureteral, or bladder calculi identified Abdominal vasculature: There is no evidence of abdominal aortic aneurysm. Bowel: There are multiple mildly dilated fluid-filled small bowel loops containing air-fluid levels. There is stool and gas present within the colon. The findings favor an ileus although an early small bowel obstruction could appear similar.. The appendix is is visualized and appears normal. There is a radiopaque density within the region of the transverse duodenum possibly representing a biopsy clip . Clinical correlation is advocated. There is an indwelling gastrostomy tube. Peritoneum: There is no ascites. There is no free intraperitoneal air. Lymphadenopathy: There are no pathologically enlarged abdominal or pelvic lymph nodes. Pelvic viscera: There is a 9 cm right adnexal mass, consistent with the patient's known ovarian cyst . This slightly exceeds water attenuation. No bladder lesions are visualized. Skeletal structures: No suspicious lytic or blastic skeletal lesions are visualized. IMPRESSION: 1. Slight interval enlargement in a 9 cm right adnexal mass consistent with the history of a right ov talon cyst 2. Multiple mildly dilated small bowel loops containing air-fluid levels. Although an ileus is favore d, an early or partial small bowel obstruction could appear similar. 3. Normal appendix 4. Indwelling gastrostomy tube 5. Radiopaque densities region of the transverse duodenum possibly representing a biopsy clip. Clinic al correlation advocated 6. Partially visualized 5 mm left lower lobe partially solid and groundglass nodule. An infectious/in flammatory etiology is favored. ACT 112: Negative or not required by law. Electronically signed by: Ajith Burnham M.D. 05/06/2025 1:18 PM
[2025-05-06] MEDS: ALBUMIN 25% 25 GM/100 ML VIAL IV ONE (14:00)
--- NOTE | 2025-05-06 14:17 | Communication Note ---
Date of Service: May 06, 2025 CT ABD/pelvis results reviewed: Multiple mildly dilated small bowel loops containing air-fluid levels. Although an ileus is favored, an early or partial small bowel obstruction could appear similar. Patient updated regarding results NPO General surgery consult ZA Fan Hospitalist
--- NOTE | 2025-05-06 14:19 | Surgery Consultation ---
Date of Consultation May 06, 2025 Assessment & Plan (1) Ileus: CT images and results were personally viewed and interpreted by myself She does not have any signs of barry bowel obstruction on CT She has a baseline dysfunctional GI tract No plans for any surgical intervention Will follow-up (2) Gastrointestinal dysmotility: History of Present Illness Reason for Consultation: Ileus versus bowel obstruction Attending Physician: Brett Jang MD History of Present Illness Is a 29-year-old female with a history of catheter related infections and sepsis as well as GI dysmotility who was admitted earlier today. She states she was throwing up and had some abdominal pain. She states she normally at baseline has 1 bowel movement weekly. She states she is still passing little bit of flatus. Other than her gastrostomy tube she has not had abdominal surgery. She is on chronic TPN and states that she "tries to eat" as much as possible. Allergies Allergy/AdvReac Type Severity Reaction Status Date / Time diphenhydramine Allergy Severe Urticaria, Verified 05/04/25 14:05 [From Benadryl] severe anxiety, jittery prochlorperazine Allergy Severe Anaphylaxis Verified 05/04/25 14:05 [From Compazine] adhesive Allergy Intermediate Redness, Verified 05/04/25 14:05 swelling gluten Allergy Intermediate Hives, GI Verified 05/04/25 14:05 upset peanut Allergy Intermediate Itchy Verified 05/04/25 14:05 throat tree nut Allergy Intermediate Itchy Verified 05/04/25 14:05 throat pollen extracts Allergy Mild Itchy Verified 05/04/25 14:05 eyes, sneezing, congestion chlorhexidine Allergy Unknown Unknown Verified 05/04/25 14:05 iron [From Venofer] AdvReac Severe Abdominal Verified 05/04/25 14:05 Pain fentanyl AdvReac Intermediate nausea and Verified 05/06/25 10:10 vomiting Latex, Natural Rubber AdvReac Intermediate Redness, Verified 05/04/25 14:05 itchy polyurethane Allergy Hives Uncoded 05/04/25 14:05 polyurethane power port Allergy Itching Uncoded 05/04/25 14:05 Home Medications Medication Instructions Recorded Confirmed Type baclofen 10 mg tablet 10 mg PO BID 04/09/25 05/06/25 History cholecalciferol (vitamin D3) 1,250 1,250 mcg PO WK 04/09/25 05/06/25 History mcg (50,000 unit) tablet cyanocobalamin (vitamin B-12) 1,000 mcg IM MONTHLY 04/09/25 05/06/25 History 1,000 mcg/mL injection solution duloxetine 20 mg capsule,delayed 20 mg PO DAILY 04/09/25 05/06/25 History release famotidine 20 mg tablet 20 mg PO BID 04/09/25 05/06/25 History linaclotide 145 mcg capsule 145 mcg PO DAILY PRN Constipation 04/09/25 05/06/25 History loratadine 10 mg tablet 10 mg PO DAILY 04/09/25 05/06/25 History montelukast 10 mg tablet 10 mg PO HS 04/09/25 05/06/25 History olanzapine 2.5 mg tablet 2.5 mg PO HS 04/09/25 05/06/25 History ondansetron 8 mg disintegrating 8 mg PO Q8H PRN Nausea And Vomiting 04/09/25 05/06/25 History tablet erythromycin ethylsuccinate 200 100 mg PO TID 05/06/25 05/06/25 History mg/5 mL oral powder for suspension hydroxyzine HCl 50 mg tablet 50 mg PO QID PRN Anxiety 05/06/25 05/06/25 History prucalopride 2 mg tablet 2 mg PO DAILY 05/06/25 05/06/25 History Patient History Medical History Gastrostomy tube in place Anxiety Gastrointestinal dysmotility Reactive hypoglycemia dexcom present to left arm Anemia Neuropathy legs Gastroparesis History of COVID-19 02/2022, not hospitalized 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 Jejunostomy tube present placed October 2020 Surgical History S/P gastrostomy History of removal of Port-a-Cath (05/21/24) Infusaport Removal - Left side(Left) - Alton Garcia DO, FACS History of myringotomy History of surgery (06/24/21) Removal of Right Tunneled Central Line in Internal Jugular Catheter H/O wisdom tooth extraction H/O wrist surgery right S/P knee surgery Left Family History Other Adopted Social History Smoking Status: Never smoker Second Hand Exposure: No; Do You Dip or Chew Tobacco: No; Hx Alcohol Use: No Hx Substance Use: No Preferred Language: Kyrgyz Communication Ability: Effective Director Of Business Operations Required: No Beliefs That Will Affect Care: None Current Living Situation: Parent Current Living Situation Comment: Lives w/ family at home Feels Safe at Home: Yes Assistive Devices: None Review of Systems Constitutional: no fever and no chills Eyes: no blind spots and no worsening vision Ear, Nose, Mouth, Throat: no ear pain and no tinnitus Respiratory: no cough and no dyspnea Cardiovascular: no chest pain and no dyspnea on exertion Gastrointestinal: + abdominal pain, + nausea, + vomiting a nd + constipation; no diarrhea/loose stools Genitourinary: no dysuria and no urinary hesitancy Musculoskeletal: no back pain and no neck pain Integumentary: no acne, no skin ulcer and no erythema Neurologic: no gait abnormality and no headache(s) Psychiatric: no behavioral changes and no depression Hematologic / Lymphatic: no easy bleeding and no easy bruising Physical Exam Constitutional: WD/WN, vitals as above Eyes: PERRL, conjunctivae normal, anicteric sclerae ENMT: external ear and nose normal, oropharynx normal Neck: trachea midline, no thyromegaly Respiratory: normal respiratory effort, lungs clear to auscultation Cardiovascular: RRR, no murmur, no edema Gastrointestinal (Abdomen): Inspection/Auscultation: abdomen normal to inspection; abdomen not distended and no abdominal edema Percussion/Palpation: abdomen soft; abdomen nontender, no guarding and no hernia Gastrostomy tube in place Musculoskeletal: no cyanosis or clubbing, extremities motor strength 5/5 Skin: no rashes, warm and dry Neurologic: PERRL, EOMI, accommodation nl, no face palsy, no dysarthria Psychiatric: A+Ox3, euthymic affect Results & Data Vital Signs (Past 12 Hours) Vital Signs Temp Pulse Pulse Resp BP BP Pulse Ox 05/06/25 12:26 37.1 C 115 H 18 103/73 94 05/06/25 11:29 124 H 18 91/56 L 92 05/06/25 10:49 150 H 18 103/70 91 05/06/25 10:24 39.3 C H 155 H 18 109/70 93 05/06/25 09:27 147 H 20 113/71 97 05/06/25 08:30 119 H 18 109/67 97 05/06/25 07:09 120 H 05/06/25 07:04 115 H 20 107/75 99 05/06/25 07:04 117 H 20 100 05/06/25 06:45 37.6 C H 143 H 17 118/79 95 O2 Del Method 05/06/25 12:26 Room Air 05/06/25 11:29 Room Air 05/06/25 10:49 Room Air 05/06/25 10:24 Room Air 05/06/25 09:27 Room Air 05/06/25 08:30 Room Air 05/06/25 07:09 05/06/25 07:04 Room Air 05/06/25 07:04 Room Air 05/06/25 06:45 Room Air PG Care Time/CCT Total # of Minutes Spent Total Time Spent with Patient: Total time spent is greater than 50% in coordination of care (as documented) at patient's floor/unit and/or counseling patient: Coding Level of Care Code 69384 IN/OBS CONSULT LVL 5,80M Diagnoses Ileus K56.7 Gastrointestinal dysmotility K92.89
[2025-05-06] MEDS: VANCOMYCIN HCL / NSS 1,000 MG/270 ML BAG IV SCH (15:56)
[2025-05-06] MEDS: CEFEPIME 2000MG 2,000 MG/20 ML SYR IV SCH (15:58)
[2025-05-06] MEDS: ERYTHROMYCIN ETHYLSUCC SUSP 200 MG/5 ML 100 ML BTL PO SCH (15:58)
[2025-05-06 18:43] LABS: Appearance Urine Clear (Clear); Bacteria Urine Automated None Seen (None Seen); Cast Urine Automated 0-2 /lpf (0-2); Epithelial Cell Urine Auto 0-2 /hpf (0-2); Glucose Urine UA Negative (Negative); WBC Urine Automated 0-5 /hpf (0-5)
--- NOTE | 2025-05-06 18:58 | Electrocardiogram Report ---
Test Reason : Blood Pressure : */* mmHG Vent. Rate : 123 BPM Atrial Rate : 123 BPM P-R Int : 138 ms QRS Dur : 78 ms QT Int : 314 ms P-R-T Axes : 60 66 32 degrees QTcB Int : 449 ms Sinus tachycardia Otherwise normal ECG When compared with ECG of 09-Apr-2025 01:08, Criteria for Anterior infarct are no longer Present Confirmed by Rocco Ayers ([id number]) on 05/06/2025 6:58:39 PM Referred By: REFERRED SELF Confirmed By: Rocco Ayers
[2025-05-06] MEDS: BACLOFEN 10 MG TAB PO SCH (20:38)
[2025-05-06] MEDS: OLANZAPINE 2.5 MG TAB PO SCH (20:38)
[2025-05-06] MEDS: MONTELUKAST SODIUM 10 MG TABLET PO SCH (20:38)
[2025-05-06] MEDS ORDERED: FAMOTIDINE 20 MG TAB PO SCH (21:00)
[2025-05-06 22:22] LABS: BldCult Id GramSt Discrep Comm Discrepant
[2025-05-07 07:52] LABS: Alanine Aminotransferase 41.0 U/L (7-52); Albumin Level 3.2 gm/dl (3.4-5.0); Alkaline Phosphatase 92.0 U/L (34-104); Anion Gap 10.0 (3-11); Bilirubin,Total 0.6 mg/dl (0.2-1.0); Blood Urea Nitrogen 5.0 mg/dl (6-23); Calcium 8.2 mg/dl (8.6-10.3); Carbon Dioxide 20.0 mmol/L (21-32); Chloride 107.0 mmol/L (98-107); Creatinine Clr Calc Pharmacy 112.2 ml/min; Glucose 62.0 mg/dl (70-99(Fasting)); Magnesium 2.0 mg/dl (1.7-2.4); Potassium 3.7 mmol/L (3.5-5.1); Sodium 137.0 mmol/L (136-145); Total Protein 6.2 gm/dl (6.0-8.3)
[2025-05-07 08:05] LABS: Hematocrit (blood only) 29.4 % (37.0-47.0); Hemoglobin 9.3 g/dl (12.0-16.0); Mean Corpuscular Hemoglobin 27.5 pg (25.0-34.0); Mean Corpuscular Volume 87.0 fL (80.0-100.0); Platelet Count 229 K/uL (130-400); RDW Standard Deviation 43.8 fL (36.4-46.3); Red Blood Count 3.38 M/uL (4.20-5.40); White Blood Count 8.26 K/ul (4.8-10.8)
[2025-05-07] MEDS ORDERED: DEXTROSE 10% 1,000 ML IV PRN (08:39)
[2025-05-07] MEDS: LORATADINE 10 MG TAB PO SCH (08:52)
[2025-05-07] MEDS ORDERED: TPN/PPN CONSULT PHARMACY PRN (09:18)
[2025-05-07] MEDS: 4.5GM X1 IV ONE (09:55)
[2025-05-07] MEDS: THIAMINE HCL 200 MG in SODIUM CHLORIDE 0.9% 50 ML IV SCH (09:55)
--- NOTE | 2025-05-07 10:07 | Surgery Progress Note ---
Date of Service May 07, 2025 Assessment & Plan (1) Ileus: Plan: I do not know if that she truly has a bowel obstruction based on her CT images She has GI dysmotility at baseline She can try some p.o. intake as she wants, but she does not take much and at [facility] No plans for any surgical intervention If she begins to vomit or has worsening abdominal pain, would repeat a CT of the abdomen pelvis with p.o. contrast Surgery will sign off at this time, please call with any questions or concerns Admission and Anticipated Discharge Date Admission Date: May 06, 2025 Subjective Patient seen and examined. Has some nausea. Has not had a bowel movement. Passing a small amount of flatus. Afebrile. At baseline with her abdominal pain. Review of Systems Constitutional: no fever and no chills Eyes: no blind spots and no worsening vision Ear, Nose, Mouth, Throat: no ear pain and no tinnitus Respiratory: no cough and no dyspnea Cardiovascular: no chest pain and no dyspnea on exertion Gastrointestinal: + abdominal pain, + nausea, + vomiting a nd + constipation; no diarrhea/loose stools Genitourinary: no dysuria and no urinary hesitancy Musculoskeletal: no back pain and no neck pain Integumentary: no acne, no skin ulcer and no erythema Neurologic: no gait abnormality and no headache(s) Psychiatric: no behavioral changes and no depression Hematologic / Lymphatic: no easy bleeding and no easy bruising Physical Exam Constitutional: WD/WN, vitals as above Eyes: PERRL, conjunctivae normal, anicteric sclerae ENMT: external ear and nose normal, oropharynx normal Neck: trachea midline, no thyromegaly Respiratory: normal respiratory effort, lungs clear to auscultation Cardiovascular: RRR, no murmur, no edema Gastrointestinal (Abdomen): Inspection/Auscultation: abdomen normal to inspection; abdomen not distended and no abdominal edema Percussion/Palpation: abdomen soft; abdomen nontender, no guarding and no hernia Gastrostomy tube in place Musculoskeletal: no cyanosis or clubbing, extremities motor strength 5/5 Skin: no rashes, warm and dry Neurologic: PERRL, EOMI, accommodation nl, no face palsy, no dysarthria Psychiatric: A+Ox3, euthymic affect Results & Data Vital Signs (Past 12 Hours) Vital Signs Temp Pulse Pulse Resp BP Pulse Ox O2 Del Method 05/07/25 08:13 37.2 C 94 H 18 93/59 L 95 Room Air 05/07/25 07:45 108 H 05/07/25 03:51 37.7 C H 112 H 20 98/60 L 94 Room Air 05/06/25 23:11 37.1 C 110 H 20 112/79 98 Room Air PG Care Time/CCT Total # of Minutes Spent Total Time Spent with Patient: Total time spent is greater than 50% in coordination of care (as documented) at patient's floor/unit and/or counseling patient: Coding Level of Care Code 10006 SUB INP/OBS CARE 08/07MIN Diagnoses Ileus K56.7
--- NOTE | 2025-05-07 10:49 | Hospitalist Progress Note ---
Date of Service May 07, 2025 Assessment & Plan (1) Sepsis: (2) History of central line-associated bloodstream infection (CLABSI): Plan: Patient presenting from home for evaluation of nausea, vomiting, chills, rigors. Patient recently admitted to [facility] 04/09 through 04/19 for E. coli bacteremia. right-sided Chao catheter placed on 04/18. Patient was discharged on IV ceftriaxone and completed 14 days of therapy. Chao catheter became nonfunctioning and patient underwent replacement on 05/02/2025. In the ED, patient had low-grade temp at 37.6, tachycardia. Patient was given IV cefepime, IV lorazepam, IV Zofran, IVF, IV Vanco. Sepsis POA Gram-positive bacteremia History of GI dysmotility on TPN via Chao catheter; history of multiple catheter related infection. Recent infection on 04/09 with E. coli bacteremia. She presents with fever, chills, nausea and vomiting 2 out of 4 blood cultures growing gram-positive cocci in chains and gram- positive cocci in clusters. Continuing vancomycin; cefepime changed to Zosyn Obtain echocardiogram Vascular surgery consulted given bacteremia for possible removal of the Chao catheter Consult infectious disease Possible Ileus CT abdomen and pelvis showed mildly dilated small bowel loops with the air-fluid level General surgery was consulted; no acute intervention Will start clear liquid diet Plan to start PPN tomorrow (3) Transaminitis: Plan: Mild, may be due to sepsis AST 76, ALT 55, alk phos 115, T. bili 0.1 improved on subsequent labs (4) On total parenteral nutrition (TPN): (5) Gastrointestinal dysmotility: Plan: Patient was recently evaluated at [place] and started on prucalopride (has not started yet) and erythromycin. Plan to follow up after discharge. (6) POTS (postural orthostatic tachycardia syndrome): (7) Jaqui-Danlos disease: Plan: DVT PROPHYLAXIS SCDs, Time spent evaluating patient, direct bedside care, chart review, placing orders, interpretation of diagnostic studies, discussion with consultants, patient, and family members, as well as other required patient management activities is 50 minutes Please note the above document was generated using voice recognition software. It may contain grammatical, syntax or spelling errors. Any formal questions or concerns about the content, text or information contained within the body of this dictation should be directly addressed to the provider for clarification Admission and Anticipated Discharge Date Admission Date: May 06, 2025 Subjective Patient seen and examined at bedside. If she continues to feel weak; no chills or rigor today. Review of Systems Review of Systems: All systems reviewed & are unremarkable except as noted in Subjective Physical Exam Physical Exam: Constitutional: Awake, comfortable. Not in distress. Respiratory: Bilateral vesicular breath sound Cardiovascular: RRR, no murmur, no edema Vessels: no JVD or carotid bruit Chest: Chao catheter in place Abdomen: Soft, hypoactive bowel sound Musculoskeletal: no cyanosis or clubbing, extremities motor strength 5/5 Skin: no rashes, warm and dry normal turgor Neurologic: PERRL, EOMI, accommodation nl, no face palsy, no dysarthria CN's II- XI intact bilaterally and moves all extremities Psychiatric: A+Ox3, euthymic affect Results & Data Results & Data Vital Signs (Past 12 Hours) Vital Signs Temp Pulse Pulse Resp BP Pulse Ox O2 Del Method 05/07/25 08:13 37.2 C 94 H 18 93/59 L 95 Room Air 05/07/25 07:45 108 H 05/07/25 03:51 37.7 C H 112 H 20 98/60 L 94 Room Air 05/06/25 23:11 37.1 C 110 H 20 112/79 98 Room Air
[2025-05-07] MEDS: VANCOMYCIN 750 MG in SODIUM CHLORIDE 0.9% 250 ML IV SCH (12:49)
[2025-05-07] MEDS: PIPERACILLIN/TAZOBACTAM 4.5 GM/100 ML BAG IV SCH (14:04)
--- NOTE | 2025-05-07 14:25 | XCELERA ---
[id number]
--- NOTE | 2025-05-07 15:42 | Vascular Surgery Consultation ---
Date of Consultation May 07, 2025 Assessment & Plan (1) History of central line-associated bloodstream infection (CLABSI): There was no evidence of line infection at the time of replacement last week. She has had multiple line accesses recently. In the absence of a strong and clear indication, would treat with IV antibiotics as you are doing and only remove catheter as an absolute last resort. Overall clinical improvement at this time would support leaving catheter in place. History of Present Illness Attending Physician: Terrell Staples MD History of Present Illness Patient well known to our service having undergone multiple tunneled central venous lines, most recently replacement of nonfunctioning catheter 05/02/25. Admitted with fever, nausea, vomiting, chills. This morning is overall feeling better. Allergies Allergy/AdvReac Type Severity Reaction Status Date / Time diphenhydramine Allergy Severe Urticaria, Verified 05/04/25 14:05 [From Benadryl] severe anxiety, jittery prochlorperazine Allergy Severe Anaphylaxis Verified 05/04/25 14:05 [From Compazine] adhesive Allergy Intermediate Redness, Verified 05/04/25 14:05 swelling gluten Allergy Intermediate Hives, GI Verified 05/04/25 14:05 upset peanut Allergy Intermediate Itchy Verified 05/04/25 14:05 throat tree nut Allergy Intermediate Itchy Verified 05/04/25 14:05 throat pollen extracts Allergy Mild Itchy Verified 05/04/25 14:05 eyes, sneezing, congestion chlorhexidine Allergy Unknown Unknown Verified 05/04/25 14:05 iron [From Venofer] AdvReac Severe Abdominal Verified 05/04/25 14:05 Pain fentanyl AdvReac Intermediate nausea and Verified 05/06/25 10:10 vomiting Latex, Natural Rubber AdvReac Intermediate Redness, Verified 05/04/25 14:05 itchy polyurethane Allergy Hives Uncoded 05/04/25 14:05 polyurethane power port Allergy Itching Uncoded 05/04/25 14:05 Home Medications Medication Instructions Recorded Confirmed Type baclofen 10 mg tablet 10 mg PO BID 04/09/25 05/06/25 History cholecalciferol (vitamin D3) 1,250 1,250 mcg PO WK 04/09/25 05/06/25 History mcg (50,000 unit) tablet cyanocobalamin (vitamin B-12) 1,000 mcg IM MONTHLY 04/09/25 05/06/25 History 1,000 mcg/mL injection solution duloxetine 20 mg capsule,delayed 20 mg PO DAILY 04/09/25 05/06/25 History release famotidine 20 mg tablet 20 mg PO BID 04/09/25 05/06/25 History linaclotide 145 mcg capsule 145 mcg PO DAILY PRN Constipation 04/09/25 05/06/25 History loratadine 10 mg tablet 10 mg PO DAILY 04/09/25 05/06/25 History montelukast 10 mg tablet 10 mg PO HS 04/09/25 05/06/25 History olanzapine 2.5 mg tablet 2.5 mg PO HS 04/09/25 05/06/25 History ondansetron 8 mg disintegrating 8 mg PO Q8H PRN Nausea And Vomiting 04/09/25 05/06/25 History tablet erythromycin ethylsuccinate 200 100 mg PO TID 05/06/25 05/06/25 History mg/5 mL oral powder for suspension hydroxyzine HCl 50 mg tablet 50 mg PO QID PRN Anxiety 05/06/25 05/06/25 History prucalopride 2 mg tablet 2 mg PO DAILY 05/06/25 05/06/25 History Patient History Medical History Gastrostomy tube in place Anxiety Gastrointestinal dysmotility Reactive hypoglycemia dexcom present to left arm Anemia Neuropathy legs Gastroparesis History of COVID-19 02/2022, not hospitalized 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 Jejunostomy tube present placed October 2020 Surgical History S/P gastrostomy History of removal of Port-a-Cath (05/21/24) Infusaport Removal - Left side(Left) - Alton Garcia DO, FACS History of myringotomy History of surgery (06/24/21) Removal of Right Tunneled Central Line in Internal Jugular Catheter H/O wisdom tooth extraction H/O wrist surgery right S/P knee surgery Left Family History Other Adopted Social History Smoking Status: Never smoker Second Hand Exposure: No; Do You Dip or Chew Tobacco: No; Hx Alcohol Use: No Hx Substance Use: No Preferred Language: Bengali Communication Ability: Effective Carbon Brush Maker Required: No Beliefs That Will Affect Care: None Current Living Situation: Family Current Living Situation Comment: Lives w/ family at home Feels Safe at Home: Yes Assistive Devices: None Physical Exam Physical Exam: Central line site without tenderness, erythema or discharge. Results & Data Vital Signs (Past 12 Hours) Vital Signs Temp Pulse Pulse Resp BP Pulse Ox O2 Del Method 05/07/25 15:27 103 H 05/07/25 12:39 36.6 C 103 H 18 99/64 L 98 Room Air 05/07/25 08:13 37.2 C 94 H 18 93/59 L 95 Room Air 05/07/25 08:00 Room Air 05/07/25 07:45 108 H 05/07/25 03:51 37.7 C H 112 H 20 98/60 L 94 Room Air Laboratory Results 1 of 2 blood cultures prelim positive for Strep mitis, Staph epi. PG Care Time/CCT Total # of Minutes Spent Total Time Spent with Patient: Total time spent is greater than 50% in coordination of care (as documented) at patient's floor/unit and/or counseling patient: Coding Level of Care Code 34704 IN/OBS CONSULT LVL 3,45M Diagnoses History of central line-associated bloodstream infection (CLABSI) Z86.19
[2025-05-08] MEDS: VANCOMYCIN LEVEL ONE (04:04)
[2025-05-08 08:27] LABS: Anion Gap 7.0 (3-11); Blood Urea Nitrogen 4.0 mg/dl (6-23); Calcium 8.7 mg/dl (8.6-10.3); Carbon Dioxide 25.0 mmol/L (21-32); Chloride 110.0 mmol/L (98-107); Creatinine Clr Calc Pharmacy 97.7 ml/min; Glucose 77.0 mg/dl (70-99(Fasting)); Potassium 3.7 mmol/L (3.5-5.1); Sodium 142.0 mmol/L (136-145)
[2025-05-08 08:28] LABS: A calco-baum cmplx NotReported Not Detected (NotDetected); Bact fragilis Not Reported Not Detected (NotDetected); Blood Culture Id Panel See PCR Comment (NotDetected); C auris Not Reported Not Detected (NotDetected); Calbicans Not Reported Not Detected (NotDetected); Candida glabrata Not Reported DETECTED (NotDetected); Candida krusei Not Reported Not Detected (NotDetected); Cneoformans/gatti Not Reported Not Detected (NotDetected); Cparapsilosis Not Reported Not Detected (NotDetected); Ctropicalis Not Reported Not Detected (NotDetected); E cloacae compx Not Reported Not Detected (NotDetected); Efaecalis Not Reported Not Detected (NotDetected); Efaecium Not Reported Not Detected (NotDetected); Enterobacterales Not Reported Not Detected (NotDetected); Escherichia coli Not Reported Not Detected (NotDetected); H influenzae Not Reported Not Detected (NotDetected); K aerogenes Not Reported Not Detected (NotDetected); Koxytoca Not Reported Not Detected (NotDetected); Kpneumoniae grp Not Reported Not Detected (NotDetected); Lmonocyt Not Reported Not Detected (NotDetected); N meningitidis Not Reported Not Detected (NotDetected); P aeruginosa Not Reported Not Detected (NotDetected); Proteus spp Not Reported Not Detected (NotDetected); Salmonella spp Not Reported Not Detected (NotDetected); Staph lugdunensis Not Reported Not Detected (NotDetected); Staph spp. Not Reported DETECTED (NotDetected); Staphaureus Not Reported Not Detected (NotDetected); Staphepi Not Reported DETECTED (NotDetected); Stenmaltophilia Not Reported Not Detected (NotDetected); Strep agal(GrpB) Not Reported Not Detected (NotDetected); Strep pneum Not Reported Not Detected (NotDetected); Strep pyog (GrpA) Not Reported Not Detected (NotDetected); Strep spp Not Reported DETECTED (NotDetected); mecAC Resistant Gene DETECTED (NotDetected)
[2025-05-08 08:32] LABS: Candida glabrata DETECTED (NotDetected)
[2025-05-08 08:33] LABS: Staphylococcus epidermidis DETECTED (NotDetected)
[2025-05-08 08:34] LABS: Staphylococcus spp. DETECTED (NotDetected); Streptococcus spp DETECTED (NotDetected)
--- NOTE | 2025-05-08 10:04 | Pharmacy Report ---
Pharmacy PK ABX Note - Date of Service May 08, 2025 - Assessment and Plan Assessment 05/08: Day #3 vancomycin, zosyn and caspofungin for bacteremia. 05/06 Blood cultures (CVAD) (+) Strep mitis in 2/2, Staph epidermidis in 2/2 and Sarah glabrata in 2/2. Peripheral culture NGTD. SCr 0.62mg/dL today. ID consulted. 05/07: 29 year old F receiving vancomycin and cefepime empirically in setting of sep sis. History of CLABSI and recent admission with Chao replacement. On chronic TPN. Blood cultures pending, MRSA nasal (-). SCr ~ doubled from baseline (0.83, baseline ~ 0.45-0.5mg/dL). Day # 1 of antimicrobial therapy. Plan Vancomycin * Current regimen: 750mg IV q8h * Vancomycin trough level this AM (~ 6.5h level), 13.3mcg/mL- predicted to achieve ssAUC 514mg/L.hr- therapeutic. * Continue vancomycin 750mg IV q8h. * Repeat level in ~ 48h, or sooner if clinically indicated Pharmacy will continue to follow and will adjust dose/frequency as necessary. Thank you. Pharmacy has transitioned to AUC monitoring for vancomycin. AUC/BRITT is the preferred PK/PD target and is associated with decreased risk of nephrotoxicity compared to traditional trough targets.
[2025-05-08] MEDS: CASPOFUNGIN 70 MG in SODIUM CHLORIDE 0.9% 250 ML IV ONE (10:24)
[2025-05-08] MEDS: SODIUM CHLORIDE 0.9% 500 ML IV SCH (10:27)
[2025-05-08 11:07] LABS: A calco-baum cmplx NotReported Not Detected (NotDetected); Bact fragilis Not Reported Not Detected (NotDetected); Blood Culture Id Panel PCR Panel Negative (NotDetected); C auris Not Reported Not Detected (NotDetected); Calbicans Not Reported Not Detected (NotDetected); Candida glabrata Not Reported Not Detected (NotDetected); Candida krusei Not Reported Not Detected (NotDetected); Cneoformans/gatti Not Reported Not Detected (NotDetected); Cparapsilosis Not Reported Not Detected (NotDetected); Ctropicalis Not Reported Not Detected (NotDetected); E cloacae compx Not Reported Not Detected (NotDetected); Efaecalis Not Reported Not Detected (NotDetected); Efaecium Not Reported Not Detected (NotDetected); Enterobacterales Not Reported Not Detected (NotDetected); Escherichia coli Not Reported Not Detected (NotDetected); H influenzae Not Reported Not Detected (NotDetected); K aerogenes Not Reported Not Detected (NotDetected); Koxytoca Not Reported Not Detected (NotDetected); Kpneumoniae grp Not Reported Not Detected (NotDetected); Lmonocyt Not Reported Not Detected (NotDetected); N meningitidis Not Reported Not Detected (NotDetected); P aeruginosa Not Reported Not Detected (NotDetected); Proteus spp Not Reported Not Detected (NotDetected); Salmonella spp Not Reported Not Detected (NotDetected); Staph lugdunensis Not Reported Not Detected (NotDetected); Staph spp. Not Reported Not Detected (NotDetected); Staphaureus Not Reported Not Detected (NotDetected); Staphepi Not Reported Not Detected (NotDetected); Stenmaltophilia Not Reported Not Detected (NotDetected); Strep agal(GrpB) Not Reported Not Detected (NotDetected); Strep pneum Not Reported Not Detected (NotDetected); Strep pyog (GrpA) Not Reported Not Detected (NotDetected); Strep spp Not Reported Not Detected (NotDetected)
--- NOTE | 2025-05-08 11:09 | Hospitalist Progress Note ---
Date of Service May 08, 2025 Assessment & Plan (1) Sepsis: (2) History of central line-associated bloodstream infection (CLABSI): Plan: Patient presenting from home for evaluation of nausea, vomiting, chills, rigors. Patient recently admitted to [facility] 04/09 through 04/19 for E. coli bacteremia. right-sided Chao catheter placed on 04/18. Patient was discharged on IV ceftriaxone and completed 14 days of therapy. Chao catheter became nonfunctioning and patient underwent replacement on 05/02/2025. In the ED, patient had low-grade temp at 37.6, tachycardia. Patient was given IV cefepime, IV lorazepam, IV Zofran, IVF, IV Vanco. Sepsis POA Gram-positive bacteremia Fungemia ( Sarah Glabrata) History of GI dysmotility on TPN via Chao catheter; history of multiple catheter related infection. Recent infection on 04/09 with E. coli bacteremia. She presents with fever, chills, nausea and vomiting 2 out of 4 blood cultures growing Streptococcus mitis/oralis, staph epidermidis 2 out of 4 blood cx growing Sarah Glabrata Echo- EF of 60-65%; no vegetations mentioned Discussed with Dr. Parr from infectious disease; recommended continue vancomycin and Caspofungin. He also recommended removal of the Chao catheter as there is high risks of seeding from the fungemia. Vascular surgery updated; will follow-up on recommendation. Plan to place PICC line after blood cultures clears. Formal infectious disease consultation pending Started on iv fluids with NS at 60cc.hr Repeat Blood ordered Possible Ileus CT abdomen and pelvis showed mildly dilated small bowel loops with the air-fluid level General surgery was consulted; no acute intervention Continue on clear liquid diet (3) Transaminitis: Plan: Mild, may be due to sepsis AST 76, ALT 55, alk phos 115, T. bili 0.1 improved on subsequent labs (4) On total parenteral nutrition (TPN): (5) Gastrointestinal dysmotility: Plan: Patient was recently evaluated at [place] and started on prucalopride (has not started yet) and erythromycin. Plan to follow up after discharge. (6) POTS (postural orthostatic tachycardia syndrome): (7) Jaqui-Danlos disease: Plan: DVT PROPHYLAXIS SCDs, Time spent evaluating patient, direct bedside care, chart review, placing orders, interpretation of diagnostic studies, discussion with consultants, patient, and family members, as well as other required patient management activities is 50 minutes Please note the above document was generated using voice recognition software. It may contain grammatical, syntax or spelling errors. Any formal questions or concerns about the content, text or information contained within the body of this dictation should be directly addressed to the provider for clarification Admission and Anticipated Discharge Date Admission Date: May 06, 2025 Subjective Patient seen and examined at bedside. She reports that she is feeling better compared to previous day. No chills or episode of fever Review of Systems Review of Systems: All systems reviewed & are unremarkable except as noted in Subjective Physical Exam Physical Exam: Constitutional: Awake, comfortable. Not in distress. Respiratory: Bilateral vesicular breath sound Cardiovascular: RRR, no murmur, no edema Vessels: no JVD or carotid bruit Chest: Chao catheter in place Abdomen: Soft, hypoactive bowel sound Musculoskeletal: no cyanosis or clubbing, extremities motor strength 5/5 Skin: no rashes, warm and dry normal turgor Neurologic: PERRL, EOMI, accommodation nl, no face palsy, no dysarthria CN's II- XI intact bilaterally and moves all extremities Psychiatric: A+Ox3, euthymic affect Results & Data Results & Data Vital Signs (Past 12 Hours) Vital Signs Temp Pulse Resp BP Pulse Ox O2 Del Method 05/08/25 07:33 36.5 C 82 18 91/57 L 97 Room Air 05/08/25 03:45 36.4 C L 76 20 91/58 L 97 Room Air 05/07/25 23:54 36.7 C 91 H 20 93/59 L 96 Room Air
[2025-05-08 11:48] LABS: Hematocrit (blood only) 29.5 % (37.0-47.0); Hemoglobin 9.3 g/dl (12.0-16.0); Immature Granulocytes # (auto) 0.02 K/uL (0.01-0.20); Immature Granulocytes % (auto) 0.4 %; Mean Corpuscular Hemoglobin 27.5 pg (25.0-34.0); Mean Corpuscular Volume 87.3 fL (80.0-100.0); Platelet Count 283 K/uL (130-400); RDW Standard Deviation 44.3 fL (36.4-46.3); Red Blood Count 3.38 M/uL (4.20-5.40); White Blood Count 5.43 K/ul (4.8-10.8)
[2025-05-08] MEDS: PIPERACILLIN/TAZOBACTAM 4.5 GM/100 ML BAG IV SCH (13:27)
[2025-05-08] MEDS: ONDANSETRON INJ 2 MG/ML 2 ML VIAL IV PRN (16:39)
[2025-05-09 08:27] LABS: Hematocrit (blood only) 30.3 % (37.0-47.0); Hemoglobin 9.7 g/dl (12.0-16.0); Immature Granulocytes # (auto) 0.02 K/uL (0.01-0.20); Immature Granulocytes % (auto) 0.3 %; Mean Corpuscular Hemoglobin 27.6 pg (25.0-34.0); Mean Corpuscular Volume 86.3 fL (80.0-100.0); Platelet Count 350 K/uL (130-400); RDW Standard Deviation 43.5 fL (36.4-46.3); Red Blood Count 3.51 M/uL (4.20-5.40); White Blood Count 6.38 K/ul (4.8-10.8)
[2025-05-09 08:51] LABS: Anion Gap 12.0 (3-11); Blood Urea Nitrogen 4.0 mg/dl (6-23); Calcium 9.0 mg/dl (8.6-10.3); Carbon Dioxide 22.0 mmol/L (21-32); Chloride 109.0 mmol/L (98-107); Creatinine Clr Calc Pharmacy 93.2 ml/min; Glucose 66.0 mg/dl (70-99(Fasting)); Potassium 3.4 mmol/L (3.5-5.1); Sodium 143.0 mmol/L (136-145)
--- NOTE | 2025-05-09 09:12 | Vascular Surgery Progress Note ---
Date of Service May 09, 2025 Assessment & Plan (1) History of central line-associated bloodstream infection (CLABSI): Plan: Her most recent blood cultures (from yesterday) are no growth to date. She has had multiple line exchanges/removals/insertions over the last few weeks and would reserve removal of current line as procedure of last resort. Discussed with patient who is in agreement. Will follow along while in house. Admission and Anticipated Discharge Date Admission Date: May 06, 2025 Subjective Overall feeling better compared to admission. Physical Exam Physical Exam: Line site clean. No tenderness, no drainage, no erythema. Results & Data Vital Signs (Past 12 Hours) Vital Signs Temp Pulse Pulse Resp BP Pulse Ox O2 Del Method 05/09/25 07:58 36.6 C 86 20 101/67 97 Room Air 05/09/25 02:12 36.6 C 73 18 122/77 98 Room Air 05/08/25 23:05 36.6 C 84 18 118/85 97 Room Air 05/08/25 22:03 85 PG Care Time/CCT Total # of Minutes Spent Total Time Spent with Patient: Total time spent is greater than 50% in coordination of care (as documented) at patient's floor/unit and/or counseling patient:
[2025-05-09] MEDS: CASPOFUNGIN 50 MG in SODIUM CHLORIDE 0.9% 250 ML IV SCH (09:56)
--- NOTE | 2025-05-09 10:42 | Hospitalist Progress Note ---
Date of Service May 09, 2025 Assessment & Plan (1) Sepsis: (2) History of central line-associated bloodstream infection (CLABSI): Plan: Patient presenting from home for evaluation of nausea, vomiting, chills, rigors. Patient recently admitted to [facility] 04/09 through 04/19 for E. coli bacteremia. right-sided Chao catheter placed on 04/18. Patient was discharged on IV ceftriaxone and completed 14 days of therapy. Chao catheter became nonfunctioning and patient underwent replacement on 05/02/2025. In the ED, patient had low-grade temp at 37.6, tachycardia. Patient was given IV cefepime, IV lorazepam, IV Zofran, IVF, IV Vanco. Sepsis POA Gram-positive bacteremia Fungemia ( Sarah Glabrata) History of GI dysmotility on TPN via Chao catheter; history of multiple catheter related infection. Recent infection on 04/09 with E. coli bacteremia. She presents with fever, chills, nausea and vomiting 2 out of 4 blood cultures growing Streptococcus mitis/oralis, staph epidermidis 2 out of 4 blood cx growing Sarah Glabrata 1/4 growing Corynebacterium amycolatum Echo- EF of 60-65%; Repeat blood culture on 05/08no growth in [address] Parr from infectious disease on 05/08; recommended continue vancomycin and Caspofungin. Patient also on Zosyn. Vascular surgery Recommends removal of current line as last resort as patient has multiple line exchanges/removal over the course of few weeks. Formal infectious disease consultation pending Continue on iv fluids with NS at 60cc.hr Possible Ileus CT abdomen and pelvis showed mildly dilated small bowel loops with the air-fluid level General surgery was consulted; no acute intervention diet advanced to full liquid (3) Transaminitis: Plan: Mild, may be due to sepsis AST 76, ALT 55, alk phos 115, T. bili 0.1 improved on subsequent labs (4) On total parenteral nutrition (TPN): (5) Gastrointestinal dysmotility: Plan: Patient was recently evaluated at [place] and started on prucalopride (has not started yet) and erythromycin. Plan to follow up after discharge. 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 It may contain grammatical, syntax or spelling errors. Any formal questions or concerns about the content, text or information contained within the body of this dictation should be directly addressed to the provider for clarification Admission and Anticipated Discharge Date Admission Date: May 06, 2025 Subjective Patient seen and examined at bedside. She is comfortably lying in the bed; not in distress. She has been afebrile in last 48 hours. Review of Systems Review of Systems: All systems reviewed & are unremarkable except as noted in Subjective Physical Exam Physical Exam: Constitutional: Awake, comfortable. Not in distress. Respiratory: Bilateral vesicular breath sound Cardiovascular: RRR, no murmur, no edema Vessels: no JVD or carotid bruit Chest: Chao catheter in place Abdomen: Soft, hypoactive bowel sound Musculoskeletal: no cyanosis or clubbing, extremities motor strength 5/5 Skin: no rashes, warm and dry normal turgor Neurologic: PERRL, EOMI, accommodation nl, no face palsy, no dysarthria CN's II- XI intact bilaterally and moves all extremities Psychiatric: A+Ox3, euthymic affect Results & Data Results & Data Vital Signs (Past 12 Hours) Vital Signs Temp Pulse Resp BP Pulse Ox O2 Del Method 05/09/25 07:58 36.6 C 86 20 101/67 97 Room Air 05/09/25 02:12 36.6 C 73 18 122/77 98 Room Air 05/08/25 23:05 36.6 C 84 18 118/85 97 Room Air
[2025-05-09] MEDS: SODIUM CHLORIDE 0.9% 500 ML IV SCH (12:53)
--- NOTE | 2025-05-09 15:11 | Infectious Disease Consult ---
Date of Service May 09, 2025 Telehealth Information I performed this visit using a real-time telehealth connection between my location and the patients location ([facility]). After connecting through interactive tele-video, patient was identified by name and date of and/or wristband check.Patient (or authorized healthcare patient services representative) was informed that this was a telemedicine visit and it was being conducted confidentially over secure lines. My office door was closed and no one else was present in the room with me.Patient (or authorized healthcare patient services representative) provided consent to proceed with the visit, expressed an understanding of privacy and security of the telemedicine visit, and gave permission to have a hospital patient services representative in the room in order to assist with the visit and to conduct portions of the visit, as needed. I informed the patient (or authorized healthcare patient services representative) that I reviewed their record and presented the opportunity for them to ask any questions regarding the visit today. The patient agreed to participate. Assessment & Plan (1) Infection of venous access port: (2) Sepsis: (3) Infection complicating venous access device: (4) CLABSI (central line-associated bloodstream infection): (5) Fungemia: Plan Assessment: Pt is a 29 yo F with PMHx as shown and Puente in place for TPN use presents to [facility] on 05/06/2025 with nausea, vomiting, chills, rigors. In [facility], pt's infectious work-up showed Blood cultures (+) Sarah glabrata, Strep, and Staph. Plan: 1. CLABSI c/b polymicrobial bacteremia - Recommend continuing Caspofungin and Vancomycin IV. - New Puente placed on 05/02/2025 and is currently in place. Please REMOVE BRIAN. - Recommend TTE to r/o for endovascular infection. - Recommend blood cultures every other day until negative. - Recommend Ophtho consult or outpt referral to check for endophthalmitis - pt will likely need 2 weeks of IV antibiotics s/p puente removal. - Blood cultures must be clear for 72 hours before new port placement. - we will not active f/u on patient. For additional recommendations, please contact the ID physician inspector heating and refrigeration for teledoc services. Thank you. History of Present Illness History of Present Illness Reason for consult: g +ve bactermia Pt is a 29 yo F with PMHx as shown and Puente in place for TPN use presents to [facility] on 05/06/2025 with nausea, vomiting, chills, rigors. Per notes and chart review, pt was recently admitted to [facility] 04/09 through 04/19 for E. coli bacteremia. right-sided Puente catheter placed on 04/18. Patient was discharged on IV ceftriaxone and completed 14 days of therapy. Puente catheter became nonfunctioning and patient underwent replacement on 05/02/2025. In the ED, patient had low-grade temp at 37.6, tachycardia, no leukocytosis, normal lactate, BP stable. Full RVP negative. Patient was given Cefepime and Vancomycin IV. Pt developed fever 39.3. In [facility], pt's infectious work-up showed Blood cultures (+) Sarah glabrata, Strep, and Staph. ID consulted for evaluation and management. Allergies Allergy/AdvReac Type Severity Reaction Status Date / Time diphenhydramine Allergy Severe Urticaria, Verified 05/04/25 14:05 [From Benadryl] severe anxiety, jittery prochlorperazine Allergy Severe Anaphylaxis Verified 05/04/25 14:05 [From Compazine] adhesive Allergy Intermediate Redness, Verified 05/04/25 14:05 swelling gluten Allergy Intermediate Hives, GI Verified 05/04/25 14:05 upset peanut Allergy Intermediate Itchy Verified 05/04/25 14:05 throat tree nut Allergy Intermediate Itchy Verified 05/04/25 14:05 throat pollen extracts Allergy Mild Itchy Verified 05/04/25 14:05 eyes, sneezing, congestion chlorhexidine Allergy Unknown Unknown Verified 05/04/25 14:05 iron [From Venofer] AdvReac Severe Abdominal Verified 05/04/25 14:05 Pain fentanyl AdvReac Intermediate nausea and Verified 05/06/25 10:10 vomiting Latex, Natural Rubber AdvReac Intermediate Redness, Verified 05/04/25 14:05 itchy polyurethane Allergy Hives Uncoded 05/04/25 14:05 polyurethane power port Allergy Itching Uncoded 05/04/25 14:05 Home Medications Medication Instructions Recorded Confirmed Type baclofen 10 mg tablet 10 mg PO BID 04/09/25 05/06/25 History cholecalciferol (vitamin D3) 1,250 1,250 mcg PO WK 04/09/25 05/06/25 History mcg (50,000 unit) tablet cyanocobalamin (vitamin B-12) 1,000 mcg IM MONTHLY 04/09/25 05/06/25 History 1,000 mcg/mL injection solution duloxetine 20 mg capsule,delayed 20 mg PO DAILY 04/09/25 05/06/25 History release famotidine 20 mg tablet 20 mg PO BID 04/09/25 05/06/25 History linaclotide 145 mcg capsule 145 mcg PO DAILY PRN Constipation 04/09/25 05/06/25 History loratadine 10 mg tablet 10 mg PO DAILY 04/09/25 05/06/25 History montelukast 10 mg tablet 10 mg PO HS 04/09/25 05/06/25 History olanzapine 2.5 mg tablet 2.5 mg PO HS 04/09/25 05/06/25 History ondansetron 8 mg disintegrating 8 mg PO Q8H PRN Nausea And Vomiting 04/09/25 05/06/25 History tablet erythromycin ethylsuccinate 200 100 mg PO TID 05/06/25 05/06/25 History mg/5 mL oral powder for suspension hydroxyzine HCl 50 mg tablet 50 mg PO QID PRN Anxiety 05/06/25 05/06/25 History prucalopride 2 mg tablet 2 mg PO DAILY 05/06/25 05/06/25 History Patient History Medical History Gastrostomy tube in place Anxiety Gastrointestinal dysmotility Reactive hypoglycemia dexcom present to left arm Anemia Neuropathy legs Gastroparesis History of COVID-19 02/2022, not hospitalized 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 Jejunostomy tube present placed October 2020 Surgical History S/P gastrostomy History of removal of Port-a-Cath (05/21/24) Infusaport Removal - Left side(Left) - Alton Garcia DO, FACS History of myringotomy History of surgery (06/24/21) Removal of Right Tunneled Central Line in Internal Jugular Catheter H/O wisdom tooth extraction H/O wrist surgery right S/P knee surgery Left Family History Other Adopted Social History Smoking Status: Never smoker Second Hand Exposure: No; Do You Dip or Chew Tobacco: No; Hx Alcohol Use: No Hx Substance Use: No Preferred Language: Swiss Communication Ability: Effective Quarry Boss Required: No Beliefs That Will Affect Care: None Current Living Situation: Family Current Living Situation Comment: Lives w/ family at home Feels Safe at Home: Yes Assistive Devices: None Review of Systems ROS all negative Physical Exam NA Results & Data Vital Signs (Past 12 Hours) Vital Signs Temp Pulse Resp BP Pulse Ox O2 Del Method 05/09/25 11:44 36.8 C 89 20 93/58 L 96 Room Air 05/09/25 07:58 36.6 C 86 20 101/67 97 Room Air Laboratory Results Blood culture on 05/08/2025 NGTD Blood culture on 05/06/2025 Blood Culture Aerobic Preliminary 05/09/25-1432 Organism 1 Streptococcus mitis/oralis grp Sens No Sensitivities to Follow Reference Lab Sent to Reference Lab for Sensitivities Organism 2 Staphylococcus epidermidis Sens No Sensitivities to Follow Organism 3 Sarah glabrata Sens Sensitivities to Follow One set of 2 positive FOR STREP.MITIS/ORAL GRP AND STAPH EPI.. Isolation does not necessarily mean infection. No susceptibility tests performed. Contact microbiology laboratory ([phone]) if further studies are indicated. Phoned C. GLABRATA results to WOODROW LOPEZ on 05/08/25 at 0839 by Magdalena Sharma and results were verbalized back. Critical result called to ELADIA LIMA On 05/06/25 at 8335 by Inna Jimenez and results were verbalized back. Blood Culture Anaerobic Preliminary 05/08/25-0905 Organism 1 Streptococcus mitis/oralis Sens No Sensitivities to Follow Organism 2 Staphylococcus epidermidis Sens No Sensitivities to Follow Organism 3 Sarah glabrata Sens Sensitivities to Follow One set of 2 positive. Isolation does not necessarily mean infection. No susceptibility tests performed. Contact microbiology laboratory ([phone]) if further studies are indicated. 05/06/25 09:36 Fungal Smear - Final Blood Fungal Culture - Preliminary Yeast- ident to follow 05/06/25 07:01 Aerobic Blood Culture - Preliminary Blood Corynebacterium amycolatum Anaerobic Blood Culture - Preliminary No growth in Anaerobic bottle after 48 hours. 05/08/25 07:52 Aerobic Blood Culture - Preliminary Blood No growth in Aerobic bottle after 24 hours. Anaerobic Blood Culture - Preliminary No growth in Anaerobic bottle after 24 hours. 05/08/25 07:48 Aerobic Blood Culture - Preliminary Blood No growth in Aerobic bottle after 24 hours. Anaerobic Blood Culture - Preliminary No growth in Anaerobic bottle after 24 hours. 05/09/25 05/09/25 05/09/25 07:53 07:45 07:44 WBC 6.38 RBC 3.51 L Hgb 9.7 L Hct 30.3 L MCV 86.3 MCH 27.6 MCHC 32.0 RDW Std Deviation 43.5 RDW Coeff of Priscilla 13.8 Plt Count 350 MPV 9.2 L Immature Gran % (Auto) 0.3 Neut % (Auto) 52.4 Lymph % (Auto) 35.4 [place] % (Auto) 7.8 Eos % (Auto) 3.3 Baso % (Auto) 0.8 Neut # (Auto) 3.34 Lymph # (Auto) 2.26 [place] # (Auto) 0.50 Eos # (Auto) 0.21 Baso # (Auto) 0.05 Immature Gran # (Auto) 0.02 Sodium 143 Potassium 3.4 L Chloride 109 H Carbon Dioxide 22 Anion Gap 12 H BUN 4 L Creatinine 0.65 Est Cr Clr Drug Dosing 93.2 eGFR 123.68 BUN/Creatinine Ratio 6.2 L Glucose 66 L POC Glucose 78 69 L* Calcium 9.0 05/09/25 05/08/25 02:10 20:16 WBC RBC Hgb Hct MCV MCH MCHC RDW Std Deviation RDW Coeff of Priscilla Plt Count MPV Immature Gran % (Auto) Neut % (Auto) Lymph % (Auto) [place] % (Auto) Eos % (Auto) Baso % (Auto) Neut # (Auto) Lymph # (Auto) [place] # (Auto) Eos # (Auto) Baso # (Auto) Immature Gran # (Auto) Sodium Potassium Chloride Carbon Dioxide Anion Gap BUN Creatinine Est Cr Clr Drug Dosing eGFR BUN/Creatinine Ratio Glucose POC Glucose [address] abd/pelvis on 05/06/2025 IMPRESSION: 1. Slight interval enlargement in a 9 cm right adnexal mass consistent with the history of a right ovarian cyst 2. Multiple mildly dilated small bowel loops containing air-fluid levels. Although an ileus is favored, an early or partial small bowel obstruction could appear similar. 3. Normal appendix 4. Indwelling gastrostomy tube 5. Radiopaque densities region of the transverse duodenum possibly representing a biopsy clip. Clinical correlation advocated 6. Partially visualized 5 mm left lower lobe partially solid and groundglass nodule. An infectious/inflammatory etiology is favored. Medications Administered Home Medications Medication Instructions Recorded Confirmed Last Taken baclofen 10 mg tablet 10 mg PO BID 04/09/25 05/06/25 05/01/25 21:00 cholecalciferol (vitamin D3) 1,250 1,250 mcg PO WK 04/09/25 05/06/25 04/27/25 09:00 mcg (50,000 unit) tablet cyanocobalamin (vitamin B-12) 1,000 mcg IM MONTHLY 04/09/25 05/06/25 Unknown 1,000 mcg/mL injection solution duloxetine 20 mg capsule,delayed 20 mg PO DAILY 04/09/25 05/06/25 05/01/25 21:00 release famotidine 20 mg tablet 20 mg PO BID 04/09/25 05/06/25 05/01/25 21:00 linaclotide 145 mcg capsule 145 mcg PO DAILY PRN Constipation 04/09/25 05/06/25 Unknown loratadine 10 mg tablet 10 mg PO DAILY 04/09/25 05/06/25 05/01/25 21:00 montelukast 10 mg tablet 10 mg PO HS 04/09/25 05/06/25 05/01/25 21:00 olanzapine 2.5 mg tablet 2.5 mg PO HS 04/09/25 05/06/25 05/01/25 21:00 ondansetron 8 mg disintegrating 8 mg PO Q8H PRN Nausea And Vomiting 04/09/25 05/06/25 05/01/25 21:00 tablet erythromycin ethylsuccinate 200 100 mg PO TID 05/06/25 05/06/25 Unknown mg/5 mL oral powder for suspension hydroxyzine HCl 50 mg tablet 50 mg PO QID PRN Anxiety 05/06/25 05/06/25 Unknown prucalopride 2 mg tablet 2 mg PO DAILY 05/06/25 05/06/25 Unknown Active Medications Generic Name Dose Route Start Last Admin Trade Name Freq PRN Reason Stop Dose Admin Baclofen 10 mg 05/06/25 21:00 05/09/25 08:34 Baclofen 10 Mg Tab PO 06/05/25 20:59 10 mg BID ZULY Administration Duloxetine HCl 20 mg 05/07/25 09:00 05/09/25 08:34 Duloxetine Hcl 20 Mg Cap PO 06/06/25 08:59 20 mg DAILY ZULY Administration Erythromycin Ethylsuccinate 100 mg 05/06/25 14:00 05/09/25 15:20 Erythromycin Ethylsucc Susp 200 Mg/5 Ml 100 Ml Btl PO 06/05/25 13:59 100 mg TID ZULY Administration Famotidine 20 mg in 5 mls @ 2.5 mls/min 05/06/25 11:45 05/09/25 12:51 Pepcid 20mg Iv Push IV 06/05/25 11:44 2.5 mls/min Q12H ZULY Administration Thiamine HCl 200 mg/ Sodium 52 mls @ 210 mls/hr 05/07/25 09:00 05/09/25 10:36 Chloride IV 06/06/25 08:59 Infused QAM ZULY Infusion Vancomycin HCl 750 mg/ Sodium 265 mls @ 200 mls/hr 05/07/25 12:00 05/09/25 14:43 Chloride IV 05/21/25 11:59 Infused Q8H ZULY Infusion Caspofungin 50 mg/ Sodium 260 mls @ 250 mls/hr 05/09/25 09:00 05/09/25 11:37 Chloride IV 05/19/25 08:59 Infused Q24H ZULY Infusion Protocol Piperacillin Sod/Tazobactam Sod 4.5 gm in 100 mls @ 25 mls/hr 05/08/25 13:00 05/09/25 14:44 Zosyn IV 05/22/25 12:59 25 mls/hr Q8H ZULY Administration Protocol Sodium Chloride 500 mls @ 60 mls/hr 05/09/25 11:45 05/09/25 12:53 Nss IV 05/10/25 12:44 60 mls/hr .Q8H20M ZULY Administration Loratadine 10 mg 05/07/25 09:00 05/09/25 08:34 Loratadine 10 Mg Tab PO 06/06/25 08:59 10 mg DAILY ZULY Administration Montelukast Sodium 10 mg 05/06/25 21:00 05/08/25 20:56 Montelukast Sodium 10 Mg Tablet PO 06/05/25 20:59 10 mg HS ZULY Administration Olanzapine 2.5 mg 05/06/25 21:00 05/08/25 20:56 Olanzapine 2.5 Mg Tab PO 06/05/25 20:59 2.5 mg HS ZULY Administration Ondansetron HCl 4 mg 05/06/25 10:34 05/09/25 15:24 Ondansetron Inj 2 Mg/Ml 2 Ml Vial IV 06/05/25 10:33 4 mg Q6H PRN Administration Nausea And Vomiting (1) Infection of venous access port Encounter type: initial encounter Qualified Code(s): T80.219A - Unspecified infection due to central venous catheter, initial encounter (4) CLABSI (central line-associated bloodstream infection) Encounter type: subsequent encounter Qualified Code(s): T80.211D - Bloodstream infection due to central venous catheter, subsequent encounter
[2025-05-09] MEDS: HEPARIN SOD 5,000 UNIT/0.5 ML VIAL SQ SCH (21:36)
[2025-05-10 07:10] LABS: Anion Gap 11.0 (3-11); Blood Urea Nitrogen 3.0 mg/dl (6-23); Calcium 8.5 mg/dl (8.6-10.3); Carbon Dioxide 23.0 mmol/L (21-32); Chloride 109.0 mmol/L (98-107); Creatinine Clr Calc Pharmacy 93.0 ml/min; Glucose 71.0 mg/dl (70-99(Fasting)); Magnesium 1.7 mg/dl (1.7-2.4); Potassium 3.4 mmol/L (3.5-5.1); Sodium 143.0 mmol/L (136-145)
[2025-05-10] MEDS: POTASSIUM CHLORIDE / WTR 10 MEQ/100 ML PLCT IV SCH (08:06)
--- NOTE | 2025-05-10 09:59 | Vascular Surgery Progress Note ---
Date of Service May 10, 2025 Assessment & Plan (1) CLABSI (central line-associated bloodstream infection): Plan: currently with polymicrobial blood stream infection, to include bart, on appropriate IV antibiotics Discussed our concerns with ID this morning in regards to the frequent need for line removals and preserving venous access for her in the future, given her medical history, however ultimately decided with ID to remove Puente. Will plan for Puente removal tomorrow morning. Priyanka does wish to have anesthesia for procedure, so we will coordinate with their schedule as well. She will need to be NPO after midnight in preparation for removal. Continue IV antibiotics per ID and primary team. Admission and Anticipated Discharge Date Admission Date: May 06, 2025 Subjective She is feeling much better this morning. Denies fevers and chills. Has a LUE midline as well as IV in the left wrist, both of which are working well. Blood cultures from 05/06 positive for bart, strep mitis/oralis, staph epidermidis. Repeat blood cultures 05/08 negative, 05/10 pending. Afebrile, Vitals stable. No leukocytosis. Physical Exam Physical Exam: well developed, well nourished, in no distress, lying in bed right sided puente in place, no erythema along tract, no obvious drainage. Results & Data Vital Signs (Past 12 Hours) Vital Signs Temp Pulse Resp BP Pulse Ox O2 Del Method 05/10/25 07:51 36.8 C 80 16 118/75 98 Room Air 05/10/25 02:31 36.6 C 84 16 110/72 95 Room Air 05/09/25 23:11 36.8 C 90 18 114/81 95 Room Air Laboratory Results 05/08/25 07:48 Aerobic Blood Culture - Preliminary Blood No growth in Aerobic bottle after 48 hours. Anaerobic Blood Culture - Preliminary No growth in Anaerobic bottle after 48 hours. 05/08/25 07:52 Aerobic Blood Culture - Preliminary Blood No growth in Aerobic bottle after 48 hours. Anaerobic Blood Culture - Preliminary No growth in Anaerobic bottle after 48 hours. 05/06/25 09:36 Fungal Smear - Final Blood Fungal Culture - Preliminary Bart tropicalis 05/10/25 05:26 Aerobic Blood Culture - Pending Blood Anaerobic Blood Culture - Pending 05/10/25 05:33 Aerobic Blood Culture - Pending Blood Anaerobic Blood Culture - Pending 05/06/25 07:01 Aerobic Blood Culture - Preliminary Blood Corynebacterium amycolatum Anaerobic Blood Culture - Preliminary No growth in Anaerobic bottle after 48 hours. 05/10/25 05/10/25 05/10/25 08:03 05:33 02:30 Sodium 143 Potassium 3.4 L Chloride 109 H Carbon Dioxide 23 Anion Gap 11 BUN 3 L Creatinine 0.68 Est Cr Clr Drug Dosing 93.0 eGFR 122.34 BUN/Creatinine Ratio 4.4 L Glucose 71 POC Glucose 75 88 Calcium 8.5 L Phosphorus 3.9 Magnesium 1.7 05/09/25 05/09/25 20:25 16:52 Sodium Potassium Chloride Carbon Dioxide Anion Gap BUN Creatinine Est Cr Clr Drug Dosing eGFR BUN/Creatinine Ratio Glucose POC Glucose 98 85 Calcium Phosphorus Magnesium Medications Administered Home Medications Medication Instructions Recorded Confirmed Last Taken baclofen 10 mg tablet 10 mg PO BID 04/09/25 05/06/25 05/01/25 21:00 cholecalciferol (vitamin D3) 1,250 1,250 mcg PO WK 04/09/25 05/06/25 04/27/25 09:00 mcg (50,000 unit) tablet cyanocobalamin (vitamin B-12) 1,000 mcg IM MONTHLY 04/09/25 05/06/25 Unknown 1,000 mcg/mL injection solution duloxetine 20 mg capsule,delayed 20 mg PO DAILY 04/09/25 05/06/25 05/01/25 21:00 release famotidine 20 mg tablet 20 mg PO BID 04/09/25 05/06/25 05/01/25 21:00 linaclotide 145 mcg capsule 145 mcg PO DAILY PRN Constipation 04/09/25 05/06/25 Unknown loratadine 10 mg tablet 10 mg PO DAILY 04/09/25 05/06/25 05/01/25 21:00 montelukast 10 mg tablet 10 mg PO HS 04/09/25 05/06/25 05/01/25 21:00 olanzapine 2.5 mg tablet 2.5 mg PO HS 04/09/25 05/06/25 05/01/25 21:00 ondansetron 8 mg disintegrating 8 mg PO Q8H PRN Nausea And Vomiting 04/09/25 05/06/25 05/01/25 21:00 tablet erythromycin ethylsuccinate 200 100 mg PO TID 05/06/25 05/06/25 Unknown mg/5 mL oral powder for suspension hydroxyzine HCl 50 mg tablet 50 mg PO QID PRN Anxiety 05/06/25 05/06/25 Unknown prucalopride 2 mg tablet 2 mg PO DAILY 05/06/25 05/06/25 Unknown Active Medications Generic Name Dose Route Start Last Admin Trade Name Freq PRN Reason Stop Dose Admin Baclofen 10 mg 05/06/25 21:00 05/10/25 08:07 Baclofen 10 Mg Tab PO 06/05/25 20:59 10 mg BID ZULY Administration Duloxetine HCl 20 mg 05/07/25 09:00 05/10/25 08:07 Duloxetine Hcl 20 Mg Cap PO 06/06/25 08:59 20 mg DAILY ZULY Administration Erythromycin Ethylsuccinate 100 mg 05/06/25 14:00 05/10/25 08:07 Erythromycin Ethylsucc Susp 200 Mg/5 Ml 100 Ml Btl PO 06/05/25 13:59 100 mg TID ZULY Administration Heparin Sodium (Porcine) 5,000 units 05/09/25 21:00 05/10/25 08:10 Heparin Sod 5,000 Unit/0.5 Ml Vial SQ 06/08/25 20:59 Not Given Q12 ZULY Famotidine 20 mg in 5 mls @ 2.5 mls/min 05/06/25 11:45 05/09/25 23:01 Pepcid 20mg Iv Push IV 06/05/25 11:44 2.5 mls/min Q12H ZULY Administration Thiamine HCl 200 mg/ Sodium 52 mls @ 210 mls/hr 05/07/25 09:00 05/10/25 08:47 Chloride IV 06/06/25 08:59 210 mls/hr QAM UZLY Administration Vancomycin HCl 750 mg/ Sodium 265 mls @ 200 mls/hr 05/07/25 12:00 05/10/25 05:04 Chloride IV 05/21/25 11:59 Infused Q8H ZULY Infusion Caspofungin 50 mg/ Sodium 260 mls @ 250 mls/hr 05/09/25 09:00 05/10/25 08:51 Chloride IV 05/19/25 08:59 250 mls/hr Q24H ZULY Administration Protocol Piperacillin Sod/Tazobactam Sod 4.5 gm in 100 mls @ 25 mls/hr 10/26/25 13:00 05/10/25 05:00 Zosyn IV 05/22/25 12:59 25 mls/hr Q8H ZULY Administration Protocol Sodium Chloride 500 mls @ 60 mls/hr 05/09/25 11:45 05/10/25 05:00 Nss IV 05/10/25 12:44 60 mls/hr .Q8H20M ZULY Administration Potassium Chloride 10 meq in 100 mls @ 100 mls/hr 05/10/25 07:30 05/10/25 08:58 K Joe / Wtr IV 05/10/25 11:29 Infused Q1H ZULY Infusion Loratadine 10 mg 05/07/25 09:00 05/10/25 08:07 Loratadine 10 Mg Tab PO 06/06/25 08:59 10 mg DAILY ZULY Administration Montelukast Sodium 10 mg 05/06/25 21:00 05/09/25 21:36 Montelukast Sodium 10 Mg Tablet PO 06/05/25 20:59 10 mg HS ZULY Administration Olanzapine 2.5 mg 05/06/25 21:00 05/09/25 21:37 Olanzapine 2.5 Mg Tab PO 06/05/25 20:59 2.5 mg HS ZULY Administration Ondansetron HCl 4 mg 05/06/25 10:34 05/09/25 15:24 Ondansetron Inj 2 Mg/Ml 2 Ml Vial IV 06/05/25 10:33 4 mg Q6H PRN Administration Nausea And Vomiting PG Care Time/CCT Total # of Minutes Spent Total Time Spent with Patient: Total time spent is greater than 50% in coordination of care (as documented) at patient's floor/unit and/or counseling patient: (1) CLABSI (central line-associated bloodstream infection) Encounter type: subsequent encounter Qualified Code(s): T80.211D - Bloodstream infection due to central venous catheter, subsequent encounter
--- NOTE | 2025-05-10 11:22 | Hospitalist Progress Note ---
Date of Service May 10, 2025 Assessment & Plan (1) Sepsis: (2) History of central line-associated bloodstream infection (CLABSI): Plan: Patient presenting from home for evaluation of nausea, vomiting, chills, rigors. Patient recently admitted to [facility] 04/09 through 04/19 for E. coli bacteremia. right-sided Chao catheter placed on 04/18. Patient was discharged on IV ceftriaxone and completed 14 days of therapy. Chao catheter became nonfunctioning and patient underwent replacement on 05/02/2025. In the ED, patient had low-grade temp at 37.6, tachycardia. Patient was given IV cefepime, IV lorazepam, IV Zofran, IVF, IV Vanco. Bloodstream infection due to central venous catheter, POA Sepsis POA Fungemia ( Sarah Glabrata) History of GI dysmotility on TPN via Chao catheter; history of multiple catheter related infection. Recent infection on 04/09 with E. coli bacteremia. She presents with fever, chills, nausea and vomiting 2 out of 4 blood cultures growing Streptococcus mitis/oralis, staph epidermidis 2 out of 4 blood cx growing Sarah Glabrata Fungal Cx- Sarah Tropicalis 1/4 growing Corynebacterium amycolatum Echo- EF of 60-65%; Repeat blood culture on 05/08no growth in [address] Alcazar from infectious disease and Dr. Espana; infectious disease recommends continuing vancomycin and caspofungin for now; discontinue Zosyn. Plan for removal of Chao tomorrow a.m. from vascular surgery standpoint. Continue to follow-up on blood culture. Outpatient follow-up with ophthalmology as recommended by infectious disease; discussed with patient; agrees with the plan. Discussed with pharmacy to start PPN today. Possible Ileus CT abdomen and pelvis showed mildly dilated small bowel loops with the air-fluid level General surgery was consulted; no acute intervention tolerating fluids well (3) Transaminitis: Plan: Mild, may be due to sepsis AST 76, ALT 55, alk phos 115, T. bili 0.1 improved on subsequent labs (4) On total parenteral nutrition (TPN): (5) Gastrointestinal dysmotility: Plan: Patient was recently evaluated at [place] and started on prucalopride (has not started yet) and erythromycin. Plan to follow up after discharge. 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 It may contain grammatical, syntax or spelling errors. Any formal questions or concerns about the content, text or information contained within the body of this dictation should be directly addressed to the provider for clarification Admission and Anticipated Discharge Date Admission Date: May 06, 2025 Subjective Patient seen and examined at bedside. She is comfortable; not in distress No complaint of fever or chills overnight. Review of Systems Review of Systems: All systems reviewed & are unremarkable except as noted in Subjective Physical Exam Physical Exam: Constitutional: Awake, comfortable. Not in distress. Respiratory: Bilateral vesicular breath sound Cardiovascular: RRR, no murmur, no edema Vessels: no JVD or carotid bruit Chest: Chao catheter in place Abdomen: Soft, hypoactive bowel sound Musculoskeletal: no cyanosis or clubbing, extremities motor strength 5/5 Skin: no rashes, warm and dry normal turgor Neurologic: PERRL, EOMI, accommodation nl, no face palsy, no dysarthria CN's II- XI intact bilaterally and moves all extremities Psychiatric: A+Ox3, euthymic affect Results & Data Results & Data Vital Signs (Past 12 Hours) Vital Signs Temp Pulse Resp BP Pulse Ox O2 Del Method 05/10/25 07:51 36.8 C 80 16 118/75 98 Room Air 05/10/25 02:31 36.6 C 84 16 110/72 95 Room Air
[2025-05-10] MEDS: VANCOMYCIN LEVEL ONE (12:32)
--- NOTE | 2025-05-10 13:18 | Pharmacy Report ---
Pharmacy PK ABX Note - Date of Service May 10, 2025 - Assessment and Plan Assessment 05/10: * Vancomycin level came back at ~13.9 mcg/ml - current dosing associated with goal AUC/BRITT therefore will continue current regimen 05/08: Day #3 vancomycin, zosyn and caspofungin for bacteremia. 05/06 Blood cultures (CVAD) (+) Strep mitis in 2/2, Staph epidermidis in 2/2 and Sarah glabrata in 2/2. Peripheral culture NGTD. SCr 0.62mg/dL today. ID consulted. 05/07: 29 year old F receiving vancomycin and cefepime empirically in setting of sepsis. History of CLABSI and recent admission with Chao replacement. On chronic TPN. Blood cultures pending, MRSA nasal (-). SCr ~ doubled from baseline (0.83, baseline ~ 0.45-0.5mg/dL). Day # 1 of antimicrobial therapy. Plan Vancomycin * Continue regimen: 750mg IV q8h Pharmacy will continue to follow and will adjust dose/frequency as necessary. Thank you. Pharmacy has transitioned to AUC monitoring for vancomycin. AUC/BRITT is the preferred PK/PD target and is associated with decreased risk of nephrotoxicity compared to traditional trough targets.
--- NOTE | 2025-05-10 15:29 | Pharmacy Report ---
Pharmacy PN Follow-up Note - Date of Service May 10, 2025 - Subjective Patient is currently on day #1 of PPN - Objective Height & Weight (Last Documented) Height 5 ft 3 in Weight 47.4 kg Diet Order(s) 05/10/25 Breakfast Diet 05/11/25 00:01 NPO Intake & Ouput (24hrs) 05/09/25 05/10/25 05/11/25 06:59 06:59 06:59 Intake Total 3367 / 3367 2857 / 2857 777 / 777 Balance 3367 / 3367 2857 / 2857 777 / 777 Selected Laboratory Results 05/10/25 05:33 Sodium 143 Potassium 3.4 L Chloride 109 H Carbon Dioxide 23 Anion Gap 11 BUN 3 L Creatinine 0.68 BUN/Creatinine Ratio 4.4 L Glucose 71 Calcium 8.5 L Phosphorus 3.9 Magnesium 1.7 - Assessment & Plan Assessment: Plan: * For Day #1 of PPN administration, the following will be ordered. Discussed fluid volume with provider. Plan is for central line to replaced. * Macronutrients: * Amino Acids: 71 grams/day * Dextrose: 84 grams/day * Lipids: -- grams/day * Micronutrients: * Sodium phosphate: 12 mMol/day * Sodium chloride: 70 mEq/day * Sodium acetate: 70 mEq/day * Potassium acetate: 50 mEq/day * Magnesium sulfate: 8.12 mEq/day * Calcium gluconate: 4.65 mEq/day * Multivitamins: 10 mL/day * Trace elements: 1 mL/day * Folic Acid: 1 mg/day * Total volume of 1795 mL will be infused over 24 hours and will provide 571 kcal/day * Patient is on PPN which has a maximum mOsm/L of 900. Final osmolarity of current solution is 868.13 mOsm/L. * Labs will be ordered per PN protocol. * Pharmacy will follow and adjust PN orders on a daily basis. Thank you!
[2025-05-10] MEDS ORDERED: DEXTROSE 10% 1,000 ML IV PRN (16:00)
[2025-05-10] MEDS: PIPERACILLIN/TAZOBACTAM 4.5 GM/100 ML BAG IV SCH (19:19)
[2025-05-11] MEDS ORDERED: Nursing to Pharmacy Communication SCH (02:00)
[2025-05-11 08:48] LABS: Anion Gap 6.0 (3-11); Blood Urea Nitrogen 7.0 mg/dl (6-23); Calcium 8.9 mg/dl (8.6-10.3); Carbon Dioxide 29.0 mmol/L (21-32); Chloride 108.0 mmol/L (98-107); Creatinine Clr Calc Pharmacy 99.2 ml/min; Glucose 113.0 mg/dl (70-99(Fasting)); Magnesium 1.8 mg/dl (1.7-2.4); Potassium 3.4 mmol/L (3.5-5.1); Sodium 143.0 mmol/L (136-145); Triglycerides 106.0 mg/dl (0-150)
--- NOTE | 2025-05-11 09:11 | Vascular Surgery Progress Note ---
<Statement entered by Ismael Espana MD - 05/11/25 09:20> Plan for removal of tunneled central venous line today given fungal infection. Date of Service May 11, 2025 Assessment & Plan (1) CLABSI (central line-associated bloodstream infection): Plan: currently with polymicrobial blood stream infection, to include bart, on appropriate IV antibiotics Chao removal planned for today with anesthesia-consent on chart. Needs line holiday, with at least 72 hours of negative cultures. Continue IV antibiotics per ID and primary team. Admission and Anticipated Discharge Date Admission Date: May 06, 2025 Subjective Continues to feel ok. No fevers or chills. Has additional positive blood cultures from yesterday showing gram negative bacilli. Physical Exam Physical Exam: well developed, well nourished, in no distress, lying in bed right sided chao in place, no erythema along tract, no obvious drainage. Results & Data Vital Signs (Past 12 Hours) Vital Signs Temp Pulse Pulse Resp BP Pulse Ox O2 Del Method 05/11/25 07:55 36.7 C 93 H 20 112/69 94 Room Air 05/11/25 07:38 77 05/11/25 02:26 36.7 C 86 16 107/74 96 Room Air 05/10/25 22:50 36.9 C 89 16 120/81 97 Room Air 05/10/25 22:03 78 PG Care Time/CCT Total # of Minutes Spent Total Time Spent with Patient: Total time spent is greater than 50% in coordination of care (as documented) at patient's floor/unit and/or counseling patient: (1) CLABSI (central line-associated bloodstream infection) Encounter type: subsequent encounter Qualified Code(s): T80.211D - Bloodstream infection due to central venous catheter, subsequent encounter
[2025-05-11] MEDS ORDERED: MIDAZOLAM HCL 1 MG/ML 2ML VIAL ONE (09:21)
[2025-05-11] MEDS ORDERED: PROPOFOL IV EMULSION 10 MG/ML 20 ML VIAL IV ONE (09:21)
[2025-05-11] MEDS ORDERED: LIDOCAINE 2% 2 ML VIAL/AMP(20MG/ML) INFIL ONE (09:21)
[2025-05-11] MEDS ORDERED: DEXAMETHASONE SOD INJ 4 MG/ML VIAL ONE (09:21)
[2025-05-11] MEDS ORDERED: ONDANSETRON INJ 2 MG/ML 2 ML VIAL ONE (09:21)
[2025-05-11] MEDS: LACTATED RINGER'S 1,000 ML IV SCH (09:38)
[2025-05-11] MEDS: LIDOCAINE 1% LOCAL 20 ML VIAL ONE (10:00)
--- NOTE | 2025-05-11 10:13 | Post Operative Brief Note ---
Immediate Post Op Note Date of Surgery May 11, 2025 Pre & Post Diagnosis Operation Date: 05/11/25 10:00 Pre-Op Diagnosis: History of central line-associated bloodstream infection Post-Op Diagnosis: History of central line-associated bloodstream infection I identified the patient and participated in the time-out.: Yes Procedure Operation Date: 05/11/25 10:00 Actual Procedures p Chao Catheter Removal(Not Applicable) - Ismael Espana MD Surgeon Ismael Espana MD Scalp Specialist Humera Whitman PA-C Estimated Blood Loss 5 Findings Consistent with Post-Op Diagnosis Specimens line tip for culture Anesthesia Type MAC Complications none Disposition Accompanied Patient To Recovery: Yes Disposition: Recovery Room
[2025-05-11] MEDS: MEROPENEM 1,000 MG in SYRINGE 0 ML IV SCH (12:46)
[2025-05-11] MEDS: D5W AND 1/2NSS + 20MEQ KCL 20 MEQ/1,000 ML BAG IV SCH (12:47)
--- NOTE | 2025-05-11 13:42 | Anesthesiology Progress Note ---
Date of Service May 11, 2025 Anesthesia Post Procedure Vital Signs Vital Signs: Temp Pulse Pulse Pulse Pulse Resp BP 05/11/25 12:03 68 16 104/69 05/11/25 11:37 36.5 C 67 20 103/70 05/11/25 11:13 36.5 C 69 20 101/69 05/11/25 10:50 36.3 C L 67 18 106/74 05/11/25 10:40 70 20 97/67 L 05/11/25 10:30 68 18 93/63 L 05/11/25 10:18 36.1 C L 74 12 94/60 L 05/11/25 09:08 36.9 C 98 H 18 116/75 05/11/25 07:55 36.7 C 93 H 20 112/69 05/11/25 07:38 77 05/11/25 02:26 36.7 C 86 16 107/74 05/10/25 22:50 36.9 C 89 16 120/81 05/10/25 22:03 78 05/10/25 20:34 37 C 94 H 16 110/75 Pulse Ox O2 Del Method O2 Flow Rate 05/11/25 12:03 96 Room Air 05/11/25 11:37 97 Room Air 05/11/25 11:13 98 Room Air 05/11/25 10:50 98 Room Air 05/11/25 10:40 96 Room Air 05/11/25 10:30 99 Oxymask 3 05/11/25 10:18 98 Oxymask 6 05/11/25 09:08 99 Room Air 05/11/25 07:55 94 Room Air 05/11/25 07:38 05/11/25 02:26 96 Room Air 05/10/25 22:50 97 Room Air 05/10/25 22:03 05/10/25 20:34 96 Room Air Pain Intensity Abdomen: Pain Intensity: 7 Transfer of Care Handoff Completed per policy Notes Mental Status: alert / awake / arousable and participated in evaluation Nausea / Vomiting: adequately controlled Pain: adequately controlled Airway Patency, RR, SpO2: stable & adequate BP & HR: stable & adequate Hydration State: stable & adequate Anesthetic Complications: no major complications apparent and Pt Satisfied with anesthetic care
--- NOTE | 2025-05-11 15:24 | Hospitalist Progress Note ---
Date of Service May 11, 2025 Assessment & Plan (1) Sepsis: (2) History of central line-associated bloodstream infection (CLABSI): Plan: Patient presenting from home for evaluation of nausea, vomiting, chills, rigors. Patient recently admitted to [facility] 04/09 through 04/19 for E. coli bacteremia. right-sided Chao catheter placed on 04/18. Patient was discharged on IV ceftriaxone and completed 14 days of therapy. Chao catheter became nonfunctioning and patient underwent replacement on 05/02/2025. Bloodstream infection due to central venous catheter, POA Sepsis POA Fungemia ( Sarah Glabrata) H/O of GI dysmotility on TPN via Chao catheter; history of multiple catheter related infection. Recent infection on 04/09 with E. coli bacteremia. She presents with fever, chills, nausea and vomiting -- Blood cultures from 05/06/25: Grew Streptococcus mitis/oralis group, Staph epidermidis, Sarah glabrata, Sarah tropicalis -- Blood cultures from 05/10/2025 growing Enterobacter cloacae complex, Klebsiella, Enterobacter --Catheter tip cultures--pending --ECHO: EF 60 to 65%. Mild mitral regurgitation. Mild mitral valve prolapse. Prolapse of the anterior mitral leaflet. No regional wall motion abnormality. --IV vancomycin,, Zosyn>> transition to IV vancomycin, meropenem --Continue Caspofungin --Plan to repeat blood cultures again tomorrow -- Infectious disease consulted. Will need final recommendations based on cultures. Appreciate vascular surgery help Patient needs follow-up with ophthalmology as outpatient to rule out endophthalmitis Will hold off on PPN given persistent positive blood cultures Needs 72-hour negative blood cultures before placing new IV access Possible Ileus --CT abdomen and pelvis showed mildly dilated small bowel loops with the air- fluid level General surgery was consulted; no acute intervention Continue diet (3) Transaminitis: Plan: Mild, may be due to sepsis AST 76, ALT 55, alk phos 115, T. bili 0.1 Monitor LFTs (4) On total parenteral nutrition (TPN): (5) Gastrointestinal dysmotility: Plan: Patient was recently evaluated at [place] and started on prucalopride (has not started yet) and erythromycin. Plan to follow up after discharge. 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 SQ CODE STATUS Full code Admission and Anticipated Discharge Date Admission Date: May 06, 2025 Subjective Patient is seen and examined at bedside Chao's catheter removed earlier today Drowsy postprocedure due to anesthesia Discussed with vascular surgery today Admits to have nausea intermittently Denies any chest pain, dyspnea, abdominal pain Review of Systems Review of Systems: All systems reviewed & are unremarkable except as noted in Subjective Physical Exam Physical Exam: Physical Exam: Vitals signs as noted above General Appearance:Thin, frail, no apparent distress Head: normocephalic, Atraumatic Eyes: normal inspection, EOMI Neck: supple, Trachea midline Respiratory/Chest: Normal breath sounds, CTA, No accessory muscle use Cardiovascular: S1, S2, No murmur Abdomen/GI:Soft, Non tender, Bowel sounds present Extremities/Musculoskeletal:normal inspection, no edema Neurologic/Psych:AAOX3, grossly no focal neurological deficits Skin: normal color, warm Results & Data Results & Data Vital Signs (Past 12 Hours) Vital Signs Temp Pulse Pulse Pulse Pulse Resp BP 05/11/25 12:03 68 16 104/69 05/11/25 11:37 36.5 C 67 20 103/70 05/11/25 11:13 36.5 C 69 20 101/69 05/11/25 10:50 36.3 C L 67 18 106/74 05/11/25 10:40 70 20 97/67 L 05/11/25 10:30 68 18 93/63 L 05/11/25 10:18 36.1 C L 74 12 94/60 L 05/11/25 09:08 36.9 C 98 H 18 116/75 05/11/25 07:55 36.7 C 93 H 20 112/69 05/11/25 07:38 77 Pulse Ox O2 Del Method O2 Flow Rate 05/11/25 12:03 96 Room Air 05/11/25 11:37 97 Room Air 05/11/25 11:13 98 Room Air 05/11/25 10:50 98 Room Air 05/11/25 10:40 96 Room Air 05/11/25 10:30 99 Oxymask 3 05/11/25 10:18 98 Oxymask 6 05/11/25 09:08 99 Room Air 05/11/25 07:55 94 Room Air 10/29/25 07:38 Laboratory Results [facility] 05/11/25 07:47 Sodium 143 Potassium 3.4 L Chloride 108 H Carbon Dioxide 29 BUN 7 Creatinine 0.64 Glucose 113 H Calcium 8.9
[2025-05-11] MEDS: POTASSIUM CHLORIDE / WTR 10 MEQ/100 ML PLCT IV SCH (16:34)
[2025-05-12] MEDS ORDERED: Nursing to Pharmacy Communication SCH (00:15)
[2025-05-12] MEDS: MEROPENEM 500 MG in SYRINGE 0 ML IV ONE (05:53)
[2025-05-12 10:48] LABS: Hematocrit (blood only) 26.0 % (37.0-47.0); Hemoglobin 8.7 g/dl (12.0-16.0); Mean Corpuscular Hemoglobin 28.2 pg (25.0-34.0); Mean Corpuscular Volume 84.4 fL (80.0-100.0); Platelet Count 418 K/uL (130-400); RDW Standard Deviation 42.9 fL (36.4-46.3); Red Blood Count 3.08 M/uL (4.20-5.40); White Blood Count 7.98 K/ul (4.8-10.8)
[2025-05-12 11:17] LABS: Carbon Dioxide 23.0 mmol/L (21-32); Chloride 117.0 mmol/L (98-107); Potassium 2.9 mmol/L (3.5-5.1); Sodium 143.0 mmol/L (136-145)
[2025-05-12 11:18] LABS: Anion Gap 3.0 (3-11); Blood Urea Nitrogen 3.0 mg/dl (6-23); Creatinine Clr Calc Pharmacy 119.8 ml/min; Glucose 83.0 mg/dl (70-99(Fasting))
[2025-05-12 11:19] LABS: Calcium 7.2 mg/dl (8.6-10.3); Magnesium 1.4 mg/dl (1.7-2.4)
[2025-05-12] MEDS: POTASSIUM CHLORIDE 10 MEQ TABCR PO SCH (13:02)
[2025-05-12] MEDS: POTASSIUM CHLORIDE / WTR 10 MEQ/100 ML PLCT IV SCH (13:04)
--- NOTE | 2025-05-12 13:34 | Vascular Surgery Progress Note ---
Date of Service May 12, 2025 Assessment & Plan (1) CLABSI (central line-associated bloodstream infection): Plan: currently with polymicrobial blood stream infection, to include bart, along with positive culture from tip of Chao which was removed yesterday Needs line holiday, with at least 72 hours of negative cultures. Continue IV antibiotics per ID and primary team. Will need further central access with Chao vs PICC (if a possibility) for meds/TPN when appropriate from line holiday. Discussed pros and cons of both with Priyanka today. Admission and Anticipated Discharge Date Admission Date: May 06, 2025 Subjective Doing well after Chao removal yesterday. continues to deny any fevers or chills and generally feels better than when she was admitted last week. Blood cultures 05/10 positive for enterobacter cloacae, Klebsiella and E. coli, previous cultures from last week with bart, strep mitis, staph epi, and has been on antibiotics. Culture from catheter tip positive for enterobacter. Physical Exam Physical Exam: Thin, in no distress, lying in bed right chest dressing C/D/I Results & Data Vital Signs (Past 12 Hours) Vital Signs Temp Pulse Pulse Pulse Resp BP Pulse Ox 05/12/25 11:28 36.8 C 83 100/67 95 05/12/25 07:18 62 05/12/25 07:09 36.7 C 80 12 100/64 95 05/12/25 03:42 37.0 C 81 20 99/64 L 95 O2 Del Method 05/12/25 11:28 Room Air 05/12/25 07:18 05/12/25 07:09 Room Air 05/12/25 03:42 Room Air Laboratory Results 05/10/25 11:04 Aerobic Blood Culture - Preliminary Blood No growth in Aerobic bottle after 48 hours. Anaerobic Blood Culture - Preliminary No growth in Anaerobic bottle after 48 hours. 05/10/25 11:14 Aerobic Blood Culture - Preliminary Blood Enterobacter cloacae complex Klebsiella oxytoc/Pepe ornith Escherichia coli Anaerobic Blood Culture - Preliminary Enterobacter cloacae complex Klebsiella oxytoc/[place] ornith 05/12/25 09:51 Aerobic Blood Culture - Pending Blood Anaerobic Blood Culture - Pending 05/12/25 09:56 Aerobic Blood Culture - Pending Blood Anaerobic Blood Culture - Pending 05/11/25 10:13 Catheter Tip Culture - Preliminary Ct,Central Venous Pressure Brigida Enterobacter cloacae complex 05/10/25 05:26 Aerobic Blood Culture - Preliminary Blood No growth in Aerobic bottle after 48 hours. Anaerobic Blood Culture - Final 05/10/25 05:33 Aerobic Blood Culture - Preliminary Blood No growth in Aerobic bottle after 48 hours. Anaerobic Blood Culture - Preliminary No growth in Anaerobic bottle after 48 hours. 05/06/25 07:01 Aerobic Blood Culture - Preliminary Blood Corynebacterium amycolatum Anaerobic Blood Culture - Final No growth in Anaerobic bottle after 5 days. 05/11/25 10:13 Fungal Smear - Final Chest Fungal Culture - Pending 05/12/25 05/12/25 05/12/25 09:51 08:11 02:40 WBC 7.98 RBC 3.08 L Hgb 8.7 L Hct 26.0 L MCV 84.4 MCH 28.2 MCHC 33.5 RDW Std Deviation 42.9 RDW Coeff of Priscilla 13.9 Plt Count 418 H MPV 9.0 L Sodium 143 Potassium 2.9 L Chloride 117 H Carbon Dioxide 23 Anion Gap 3 BUN 3 L Creatinine 0.53 L Est Cr Clr Drug Dosing 119.8 eGFR 129.92 BUN/Creatinine Ratio 5.7 L Glucose 83 POC Glucose 103 H 117 H Calcium 7.2 L Phosphorus 2.5 Magnesium 1.4 L Bld Cult ID Panel PCR 05/11/25 05/10/25 20:06 11:14 WBC RBC Hgb Hct MCV MCH MCHC RDW Std Deviation RDW Coeff of Priscilla Plt Count MPV Sodium Potassium Chloride Carbon Dioxide Anion Gap BUN Creatinine Est Cr Clr Drug Dosing eGFR BUN/Creatinine Ratio Glucose POC Glucose 126 H Calcium Phosphorus Magnesium Bld Cult ID Panel PCR PCR Not Reported Medications Administered Home Medications Medication Instructions Recorded Confirmed Last Taken baclofen 10 mg tablet 10 mg PO BID 04/09/25 05/06/25 05/01/25 21:00 cholecalciferol (vitamin D3) 1,250 1,250 mcg PO WK 04/09/25 05/06/25 04/27/25 09:00 mcg (50,000 unit) tablet cyanocobalamin (vitamin B-12) 1,000 mcg IM MONTHLY 04/09/25 05/06/25 Unknown 1,000 mcg/mL injection solution duloxetine 20 mg capsule,delayed 20 mg PO DAILY 04/09/25 05/06/25 05/01/25 21:00 release famotidine 20 mg tablet 20 mg PO BID 04/09/25 05/06/25 05/01/25 21:00 linaclotide 145 mcg capsule 145 mcg PO DAILY PRN Constipation 04/09/25 05/06/25 Unknown loratadine 10 mg tablet 10 mg PO DAILY 04/09/25 05/06/25 05/01/25 21:00 montelukast 10 mg tablet 10 mg PO HS 04/09/25 05/06/25 05/01/25 21:00 olanzapine 2.5 mg tablet 2.5 mg PO HS 04/09/25 05/06/25 05/01/25 21:00 ondansetron 8 mg disintegrating 8 mg PO Q8H PRN Nausea And Vomiting 04/09/25 05/06/25 05/01/25 21:00 tablet erythromycin ethylsuccinate 200 100 mg PO TID 05/06/25 05/06/25 Unknown mg/5 mL oral powder for suspension hydroxyzine HCl 50 mg tablet 50 mg PO QID PRN Anxiety 05/06/25 05/06/25 Unknown prucalopride 2 mg tablet 2 mg PO DAILY 05/06/25 05/06/25 Unknown Active Medications Generic Name Dose Route Start Last Admin Trade Name Freq PRN Reason Stop Dose Admin Baclofen 10 mg 05/06/25 21:00 05/12/25 13:03 Baclofen 10 Mg Tab PO 06/05/25 20:59 10 mg BID ZULY Administration Duloxetine HCl 20 mg 05/07/25 09:00 05/12/25 09:34 Duloxetine Hcl 20 Mg Cap PO 06/06/25 08:59 20 mg DAILY ZULY Administration Erythromycin Ethylsuccinate 100 mg 05/06/25 14:00 05/12/25 13:03 Erythromycin Ethylsucc Susp 200 Mg/5 Ml 100 Ml Btl PO 06/05/25 13:59 100 mg TID ZULY Administration Heparin Sodium (Porcine) 5,000 units 05/09/25 21:00 05/12/25 10:48 Heparin Sod 5,000 Unit/0.5 Ml Vial SQ 06/08/25 20:59 Not Given Q12 ZULY Famotidine 20 mg in 5 mls @ 2.5 mls/min 05/06/25 11:45 05/12/25 10:57 Pepcid 20mg Iv Push IV 06/05/25 11:44 2.5 mls/min Q12H ZULY Administration Thiamine HCl 200 mg/ Sodium 52 mls @ 210 mls/hr 05/07/25 09:00 05/12/25 09:45 Chloride IV 06/06/25 08:59 Infused QAM ZULY Infusion Vancomycin HCl 750 mg/ Sodium 265 mls @ 200 mls/hr 05/07/25 12:00 05/12/25 13:04 Chloride IV 05/21/25 11:59 200 mls/hr Q8H ZULY Administration Caspofungin 50 mg/ Sodium 260 mls @ 250 mls/hr 05/09/25 09:00 05/12/25 10:57 Chloride IV 05/19/25 08:59 Infused Q24H ZULY Infusion Protocol Amino Acids 1,795 ml/ 1,795 mls @ 74.8 mls/hr 05/10/25 16:00 05/11/25 19:25 Nutrition (Parenteral) IV Infused .Q24H ZULY Infusion Protocol Potassium Chloride/Dextrose/Sod Cl 20 meq in 1,000 mls @ 75 mls/hr 05/11/25 09:00 05/12/25 03:31 D5w And 1/2nss + 20meq Kcl IV 05/14/25 08:59 75 mls/hr .[id number] ZULY Administration Meropenem 1,000 mg/ Syringe 20 mls @ 4 mls/min 05/11/25 11:00 05/12/25 13:03 IV 05/25/25 10:59 4 mls/min Q8H ZULY Administration Protocol Potassium Chloride 10 meq in 100 mls @ 100 mls/hr 05/12/25 12:30 05/12/25 13:04 K Joe / Wtr IV 05/12/25 15:29 100 mls/hr Q1H ZULY Administration Loratadine 10 mg 05/07/25 09:00 05/12/25 13:02 Loratadine 10 Mg Tab PO 06/06/25 08:59 10 mg DAILY ZULY Administration Montelukast Sodium 10 mg 05/06/25 21:00 05/11/25 20:25 Montelukast Sodium 10 Mg Tablet PO 06/05/25 20:59 10 mg HS ZULY Administration Olanzapine 2.5 mg 05/06/25 21:00 05/11/25 20:25 Olanzapine 2.5 Mg Tab PO 06/05/25 20:59 2.5 mg HS ZULY Administration Ondansetron HCl 4 mg 05/06/25 10:34 05/09/25 15:24 Ondansetron Inj 2 Mg/Ml 2 Ml Vial IV 06/05/25 10:33 4 mg Q6H PRN Administration Nausea And Vomiting Potassium Chloride 40 meq 05/12/25 12:30 05/12/25 13:02 Potassium Chloride 10 Meq Tabcr PO 06/11/25 12:29 40 meq BID ZULY Administration PG Care Time/CCT Total # of Minutes Spent Total Time Spent with Patient: Total time spent is greater than 50% in coordination of care (as documented) at patient's floor/unit and/or counseling patient: (1) CLABSI (central line-associated bloodstream infection) Encounter type: subsequent encounter Qualified Code(s): T80.211D - Bloodstream infection due to central venous catheter, subsequent encounter
[2025-05-12] MEDS: MAGNESIUM SULFATE / D5W 1 GM/100 ML BAG IV SCH (15:16)
--- NOTE | 2025-05-12 15:58 | Hospitalist Progress Note ---
Date of Service May 12, 2025 Assessment & Plan (1) Sepsis: (2) History of central line-associated bloodstream infection (CLABSI): Plan: Patient presenting from home for evaluation of nausea, vomiting, chills, rigors. Patient recently admitted to [facility] 04/09 through 04/19 for E. coli bacteremia. right-sided Chao catheter placed on 04/18. Patient was discharged on IV ceftriaxone and completed 14 days of therapy. Chao catheter became nonfunctioning and patient underwent replacement on 05/02/2025. Bloodstream infection due to central venous catheter, POA Sepsis POA Fungemia ( Sarah Glabrata) H/O of GI dysmotility on TPN via Chao catheter; history of multiple catheter related infection. Recent infection on 04/09 with E. coli bacteremia. She presents with fever, chills, nausea and vomiting -- Blood cultures from 05/06/25: Grew Streptococcus mitis/oralis group, Staph epidermidis, Sarah glabrata, Sarah tropicalis -- Blood cultures from 05/10/2025 growing Enterobacter cloacae complex, Klebsiella, Enterobacter --Catheter tip cultures--preliminary culture growing Enterobacter cloacae complex --S/P Chao's catheter removed on 05/11/2025 -- Repeat blood cultures 05/12/2025: Pending -- Repeat fungal cultures pending --ECHO: EF 60 to 65%. Mild mitral regurgitation. Mild mitral valve prolapse. Prolapse of the anterior mitral leaflet. No regional wall motion abnormality. --IV vancomycin,, Zosyn>> transition to IV vancomycin, meropenem --Continue Caspofungin -- Infectious disease consulted. Will need final recommendations based on cultures. Appreciate vascular surgery help Patient needs follow-up with ophthalmology as outpatient to rule out endophthalmitis Will hold off on PPN given persistent positive blood cultures Needs 72-hour negative blood cultures before placing new IV access Continue current management Possible Ileus --CT abdomen and pelvis showed mildly dilated small bowel loops with the air- fluid level General surgery was consulted; no acute intervention Continue diet (3) Transaminitis: Plan: Mild, may be due to sepsis AST 76, ALT 55, alk phos 115, T. bili 0.1 Monitor LFTs (4) On total parenteral nutrition (TPN): (5) Gastrointestinal dysmotility: Plan: Patient was recently evaluated at [facility] and started on prucalopride (has not started yet) and erythromycin. Plan to follow up after discharge. Discussed with Dr. 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 Has follow-up appointment on May 27, 2025 at 2:20 PM. 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 SQ CODE STATUS Full code Admission and Anticipated Discharge Date Admission Date: May 06, 2025 Subjective Patient is seen and examined at bedside Reports chronic nausea, abdominal discomfort Discussed with patient's family at bedside Denies any chest pain, dyspnea, dizziness Review of Systems Review of Systems: All systems reviewed & are unremarkable except as noted in Subjective Physical Exam Physical Exam: Physical Exam: Vitals signs as noted above General Appearance:Thin, frail, no apparent distress Head: normocephalic, Atraumatic Eyes: normal inspection, EOMI Neck: supple, Trachea midline Respiratory/Chest: Normal breath sounds, CTA, No accessory muscle use Cardiovascular: S1, S2, No murmur Abdomen/GI:Soft, Non tender, Bowel sounds present Extremities/Musculoskeletal:normal inspection, no edema Neurologic/Psych:AAOX3, grossly no focal neurological deficits Skin: normal color, warm Results & Data Results & Data Vital Signs (Past 12 Hours) Vital Signs Temp Pulse Pulse Pulse Resp BP Pulse Ox 05/12/25 11:28 36.8 C 83 100/67 95 05/12/25 07:18 62 05/12/25 07:09 36.7 C 80 12 100/64 95 O2 Del Method 05/12/25 11:28 Room Air 05/12/25 07:18 05/12/25 07:09 Room Air Laboratory Results Short CBC 05/12/25 Range/Units 09:51 WBC 7.98 (4.8-10.8) K/ul Hgb 8.7 L (12.0-16.0) g/dl Hct 26.0 L (37.0-47.0) % Plt Count 418 H (130-400) K/uL BMP 05/12/25 09:51 Sodium 143 Potassium 2.9 L Chloride 117 H Carbon Dioxide 23 BUN 3 L Creatinine 0.53 L Glucose 83 Calcium 7.2 L
[2025-05-12] MEDS: MAGNESIUM CHLORIDE W/CALCIUM 64MG DELAYED REL TAB PO SCH (20:19)
[2025-05-12] MEDS: diphenhydrAMINE 2%/ZINC 0.1% CREAM 28.4GM TUBE EXT PRN (23:43)
[2025-05-13 00:37] LABS: A calco-baum cmplx NotReported Not Detected (NotDetected); Bact fragilis Not Reported Not Detected (NotDetected); Blood Culture Id Panel See PCR Comment (NotDetected); C auris Not Reported Not Detected (NotDetected); Calbicans Not Reported Not Detected (NotDetected); Candida glabrata Not Reported DETECTED (NotDetected); Candida krusei Not Reported Not Detected (NotDetected); Cneoformans/gatti Not Reported Not Detected (NotDetected); Cparapsilosis Not Reported Not Detected (NotDetected); Ctropicalis Not Reported Not Detected (NotDetected); E cloacae compx Not Reported Not Detected (NotDetected); Efaecalis Not Reported Not Detected (NotDetected); Efaecium Not Reported Not Detected (NotDetected); Enterobacterales Not Reported Not Detected (NotDetected); Escherichia coli Not Reported Not Detected (NotDetected); H influenzae Not Reported Not Detected (NotDetected); K aerogenes Not Reported Not Detected (NotDetected); Koxytoca Not Reported Not Detected (NotDetected); Kpneumoniae grp Not Reported Not Detected (NotDetected); Lmonocyt Not Reported Not Detected (NotDetected); N meningitidis Not Reported Not Detected (NotDetected); P aeruginosa Not Reported Not Detected (NotDetected); Proteus spp Not Reported Not Detected (NotDetected); Salmonella spp Not Reported Not Detected (NotDetected); Staph lugdunensis Not Reported Not Detected (NotDetected); Staph spp. Not Reported Not Detected (NotDetected); Staphaureus Not Reported Not Detected (NotDetected); Staphepi Not Reported Not Detected (NotDetected); Stenmaltophilia Not Reported Not Detected (NotDetected); Strep agal(GrpB) Not Reported Not Detected (NotDetected); Strep pneum Not Reported Not Detected (NotDetected); Strep pyog (GrpA) Not Reported Not Detected (NotDetected); Strep spp Not Reported Not Detected (NotDetected)
[2025-05-13 01:12] LABS: Candida glabrata DETECTED (NotDetected)
[2025-05-13 06:48] LABS: Anion Gap 7.0 (3-11); Blood Urea Nitrogen 5.0 mg/dl (6-23); Calcium 9.0 mg/dl (8.6-10.3); Carbon Dioxide 24.0 mmol/L (21-32); Chloride 110.0 mmol/L (98-107); Creatinine Clr Calc Pharmacy 101.9 ml/min; Glucose 97.0 mg/dl (70-99(Fasting)); Magnesium 2.1 mg/dl (1.7-2.4); Potassium 4.2 mmol/L (3.5-5.1); Sodium 141.0 mmol/L (136-145)
[2025-05-13 09:00] LABS: Blood Culture Id Panel See PCR Comment (NotDetected)
[2025-05-13] MEDS: VANCOMYCIN LEVEL ONE (11:57)
--- NOTE | 2025-05-13 12:45 | Pharmacy Report ---
Pharmacy PK ABX Note - Date of Service May 13, 2025 - Assessment and Plan Assessment 05/13: * Vancomycin level came back at ~14.4 mcg/ml today, current dosing associated with goal AUC/BRITT therefore will continue current regimen. Awaiting finalized cultures. Preliminary repeat bc no growth thus far. Chao catheter removed 05/11 05/10: * Vancomycin level came back at ~13.9 mcg/ml - current dosing associated with goal AUC/BRITT therefore will continue current regimen 05/08: Day #3 vancomycin, zosyn and caspofungin for bacteremia. 05/06 Blood cultures (CVAD) (+) Strep mitis in 2/2, Staph epidermidis in 2/2 and Sarah glabrata in 2/2. Peripheral culture NGTD. SCr 0.62mg/dL today. ID consulted. 05/07: 29 year old F receiving vancomycin and cefepime empirically in setting of sepsis. History of CLABSI and recent admission with Chao replacement. On chronic TPN. Blood cultures pending, MRSA nasal (-). SCr ~ doubled from baseline (0.83, baseline ~ 0.45-0.5mg/dL). Day # 1 of antimicrobial therapy. Plan Vancomycin * Continue regimen: 750mg IV q8h Pharmacy will continue to follow and will adjust dose/frequency as necessary. Thank you. Pharmacy has transitioned to AUC monitoring for vancomycin. AUC/BRITT is the preferred PK/PD target and is associated with decreased risk of nephrotoxicity compared to traditional trough targets.
--- NOTE | 2025-05-13 12:56 | Vascular Surgery Progress Note ---
Date of Service May 13, 2025 Assessment & Plan (1) CLABSI (central line-associated bloodstream infection): Plan: currently with polymicrobial blood stream infection, to include bart, along with positive culture from tip of Chao which was removed 05/11 Needs line holiday, with at least 72 hours of negative cultures. Continue IV antibiotics per ID and primary team. Will need further central access with Chao vs PICC (if a possibility) for meds/TPN when appropriate from line holiday. Discussed pros and cons of both with Priyanka today. Admission and Anticipated Discharge Date Admission Date: May 06, 2025 Subjective No acute events overnight, vitals stable. Blood cultures from 05/12 with no growth after 24 hours. Culture from catheter tip (05/11/25) with eterobacter and klebsiella. Still with bart on 05/10 blood cultures. Denies fevers or chills. New right arm PIVs placed yesterday. Physical Exam Physical Exam: Thin, in no distress, lying in bed right chest dressing C/D/I Results & Data Vital Signs (Past 12 Hours) Vital Signs Temp Pulse Pulse Resp BP Pulse Ox O2 Del Method 05/13/25 06:58 36.7 C 82 98/68 L 96 Room Air 05/13/25 03:42 36.5 C 78 20 107/69 97 Room Air Laboratory Results 05/12/25 09:56 Aerobic Blood Culture - Preliminary Blood No growth in Aerobic bottle after 24 hours. Anaerobic Blood Culture - Preliminary No growth in Anaerobic bottle after 24 hours. 05/12/25 09:51 Aerobic Blood Culture - Preliminary Blood No growth in Aerobic bottle after 24 hours. Anaerobic Blood Culture - Preliminary No growth in Anaerobic bottle after 24 hours. 05/11/25 10:13 Catheter Tip Culture - Preliminary Ct,Central Venous Pressure Brigida Enterobacter cloacae complex Klebsiella oxytoc/Pepe ornith 05/08/25 07:52 Aerobic Blood Culture - Final Blood No growth in Aerobic bottle after 5 days. Anaerobic Blood Culture - Final No growth in Anaerobic bottle after 5 days. 05/08/25 07:48 Aerobic Blood Culture - Final Blood No growth in Aerobic bottle after 5 days. Anaerobic Blood Culture - Final No growth in Anaerobic bottle after 5 days. 05/10/25 11:14 Aerobic Blood Culture - Preliminary Blood Enterobacter cloacae complex Klebsiella oxytoc/Pepe ornith Escherichia coli Bart tropicalis Anaerobic Blood Culture - Preliminary Enterobacter cloacae complex Klebsiella oxytoc/Pepe ornith 05/10/25 11:04 Aerobic Blood Culture - Preliminary Blood Yeast Anaerobic Blood Culture - Preliminary No growth in Anaerobic bottle after 48 hours. 05/13/25 05/13/25 05/13/25 11:33 08:01 05:26 Sodium 141 Potassium 4.2 D Chloride 110 H Carbon Dioxide 24 Anion Gap 7 BUN 5 L Creatinine 0.66 Est Cr Clr Drug Dosing 101.9 eGFR 123.23 BUN/Creatinine Ratio 7.6 L Glucose 97 POC Glucose 95 Calcium 9.0 Phosphorus 3.3 Magnesium 2.1 Random Vancomycin 14.4 C. glabrata (PCR) C. tropicalis (PCR) E. cloacae complex PCR E. coli (PCR) Klebsiella oxytoca PCR Bld Cult ID Panel PCR Bld Cult ID PCR Com 05/13/25 05/12/25 05/10/25 01:39 20:26 11:14 Sodium Potassium Chloride Carbon Dioxide Anion Gap BUN Creatinine Est Cr Clr Drug Dosing eGFR BUN/Creatinine Ratio Glucose POC Glucose 118 H 117 H Calcium Phosphorus Magnesium Random Vancomycin C. glabrata (PCR) C. tropicalis (PCR) DETECTED A E. cloacae complex PCR DETECTED A E. coli (PCR) DETECTED A Klebsiella oxytoca PCR DETECTED A Bld Cult ID Panel PCR See PCR Comment Bld Cult ID PCR Com Not Reportable 05/10/25 11:04 Sodium Potassium Chloride Carbon Dioxide Anion Gap BUN Creatinine Est Cr Clr Drug Dosing eGFR BUN/Creatinine Ratio Glucose POC Glucose Calcium Phosphorus Magnesium Random Vancomycin C. glabrata (PCR) DETECTED A C. tropicalis (PCR) E. cloacae complex PCR E. coli (PCR) Klebsiella oxytoca PCR Bld Cult ID Panel PCR See PCR Comment Bld Cult ID PCR Com Medications Administered Home Medications Medication Instructions Recorded Confirmed Last Taken baclofen 10 mg tablet 10 mg PO BID 04/09/25 05/06/25 05/01/25 21:00 cholecalciferol (vitamin D3) 1,250 1,250 mcg PO WK 04/09/25 05/06/25 04/27/25 09:00 mcg (50,000 unit) tablet cyanocobalamin (vitamin B-12) 1,000 mcg IM MONTHLY 04/09/25 05/06/25 Unknown 1,000 mcg/mL injection solution duloxetine 20 mg capsule,delayed 20 mg PO DAILY 04/09/25 05/06/25 05/01/25 21:00 release famotidine 20 mg tablet 20 mg PO BID 04/09/25 05/06/25 05/01/25 21:00 linaclotide 145 mcg capsule 145 mcg PO DAILY PRN Constipation 04/09/25 05/06/25 Unknown loratadine 10 mg tablet 10 mg PO DAILY 04/09/25 05/06/25 05/01/25 21:00 montelukast 10 mg tablet 10 mg PO HS 04/09/25 05/06/25 05/01/25 21:00 olanzapine 2.5 mg tablet 2.5 mg PO HS 04/09/25 05/06/25 05/01/25 21:00 ondansetron 8 mg disintegrating 8 mg PO Q8H PRN Nausea And Vomiting 04/09/25 05/06/25 05/01/25 21:00 tablet erythromycin ethylsuccinate 200 100 mg PO TID 05/06/25 05/06/25 Unknown mg/5 mL oral powder for suspension hydroxyzine HCl 50 mg tablet 50 mg PO QID PRN Anxiety 05/06/25 05/06/25 Unknown prucalopride 2 mg tablet 2 mg PO DAILY 05/06/25 05/06/25 Unknown Active Medications Generic Name Dose Route Start Last Admin Trade Name Benny PRN Reason Stop Dose Admin Baclofen 10 mg 05/06/25 21:00 05/13/25 07:54 Baclofen 10 Mg Tab PO 06/05/25 20:59 10 mg BID ZULY Administration Duloxetine HCl 20 mg 05/07/25 09:00 05/13/25 07:54 Duloxetine Hcl 20 Mg Cap PO 06/06/25 08:59 20 mg DAILY ZULY Administration Erythromycin Ethylsuccinate 100 mg 05/06/25 14:00 05/13/25 10:18 Erythromycin Ethylsucc Susp 200 Mg/5 Ml 100 Ml Btl PO 06/05/25 13:59 100 mg TID ZULY Administration Heparin Sodium (Porcine) 5,000 units 05/09/25 21:00 05/13/25 07:54 Heparin Sod 5,000 Unit/0.5 Ml Vial SQ 06/08/25 20:59 Not Given Q12 ZULY Famotidine 20 mg in 5 mls @ 2.5 mls/min 05/06/25 11:45 05/13/25 11:27 Pepcid 20mg Iv Push IV 06/05/25 11:44 2.5 mls/min Q12H ZULY Administration Thiamine HCl 200 mg/ Sodium 52 mls @ 210 mls/hr 05/07/25 09:00 05/13/25 10:51 Chloride IV 06/06/25 08:59 Infused QAM ZULY Infusion Vancomycin HCl 750 mg/ Sodium 265 mls @ 200 mls/hr 05/07/25 12:00 05/13/25 05:23 Chloride IV 05/21/25 11:59 Infused Q8H ZULY Infusion Caspofungin 50 mg/ Sodium 260 mls @ 250 mls/hr 05/09/25 09:00 05/13/25 11:27 Chloride IV 05/19/25 08:59 Infused Q24H ZULY Infusion Protocol Amino Acids 1,795 ml/ 1,795 mls @ 74.8 mls/hr 05/10/25 16:00 05/11/25 19:25 Nutrition (Parenteral) IV Infused .Q24H ZULY Infusion Protocol Potassium Chloride/Dextrose/Sod Cl 20 meq in 1,000 mls @ 75 mls/hr 05/11/25 09:00 05/13/25 07:51 D5w And 1/2nss + 20meq Kcl IV 05/14/25 08:59 75 mls/hr .[id number] ZULY Administration Meropenem 1,000 mg/ Syringe 20 mls @ 4 mls/min 05/11/25 11:00 05/13/25 11:27 IV 05/25/25 10:59 4 mls/min Q8H ZULY Administration Protocol Loratadine 10 mg 05/07/25 09:00 05/13/25 07:54 Loratadine 10 Mg Tab PO 06/06/25 08:59 10 mg DAILY ZULY Administration Magnesium Chloride 64 mg 05/12/25 21:00 05/13/25 07:54 Magnesium Chloride W/Calcium 64mg Delayed Rel Tab PO 06/11/25 20:59 64 mg BID ZULY Administration Montelukast Sodium 10 mg 05/06/25 21:00 05/12/25 20:20 Montelukast Sodium 10 Mg Tablet PO 06/05/25 20:59 10 mg HS ZULY Administration Olanzapine 2.5 mg 05/06/25 21:00 05/12/25 20:19 Olanzapine 2.5 Mg Tab PO 06/05/25 20:59 2.5 mg HS ZULY Administration Ondansetron HCl 4 mg 05/06/25 10:34 05/09/25 15:24 Ondansetron Inj 2 Mg/Ml 2 Ml Vial IV 06/05/25 10:33 4 mg Q6H PRN Administration Nausea And Vomiting Potassium Chloride 40 meq 05/12/25 12:30 05/13/25 07:53 Potassium Chloride 10 Meq Tabcr PO 06/11/25 12:29 40 meq BID ZULY Administration Zinc Acetate/Diphenhydramine 1 appln 05/12/25 22:30 05/12/25 23:43 Diphenhydramine 2%/Zinc 0.1% Cream 28.4gm Tube EXT 06/11/25 22:29 1 appln QID PRN Administration itchy skin PG Care Time/CCT Total # of Minutes Spent Total Time Spent with Patient: Total time spent is greater than 50% in coordination of care (as documented) at patient's floor/unit and/or counseling patient: (1) CLABSI (central line-associated bloodstream infection) Encounter type: subsequent encounter Qualified Code(s): T80.211D - Bloodstream infection due to central venous catheter, subsequent encounter
--- NOTE | 2025-05-13 15:31 | Hospitalist Progress Note ---
Date of Service May 13, 2025 Assessment & Plan (1) Sepsis: (2) History of central line-associated bloodstream infection (CLABSI): Plan: Patient presenting from home for evaluation of nausea, vomiting, chills, rigors. Patient recently admitted to [facility] 04/09 through 04/19 for E. coli bacteremia. right-sided Chao catheter placed on 04/18. Patient was discharged on IV ceftriaxone and completed 14 days of therapy. Chao catheter became nonfunctioning and patient underwent replacement on 05/02/2025. Bloodstream infection due to central venous catheter, POA Sepsis POA Fungemia ( Sarah Glabrata) H/O of GI dysmotility on TPN via Chao catheter; history of multiple catheter related infection. Recent infection on 04/09 with E. coli bacteremia. She presents with fever, chills, nausea and vomiting -- Blood cultures from 05/06/25: Grew Streptococcus mitis/oralis group, Staph epidermidis, Sarah glabrata, Sarah tropicalis -- Blood cultures from 05/10/2025 growing Enterobacter cloacae complex, Klebsiella, Enterobacter --Catheter tip cultures--preliminary culture growing Enterobacter cloacae complex --S/P Chao's catheter removed on 05/11/2025 -- Repeat blood cultures 05/12/2025: Negative to date -- Repeat fungal cultures: pending --ECHO: EF 60 to 65%. Mild mitral regurgitation. Mild mitral valve prolapse. Prolapse of the anterior mitral leaflet. No regional wall motion abnormality. --IV vancomycin,, Zosyn>> transition to IV vancomycin, meropenem --Continue Caspofungin -- Infectious disease consulted. Will need final recommendations based on cultures. Appreciate vascular surgery help Patient needs follow-up with ophthalmology as outpatient to rule out endophthalmitis Will hold off on PPN given persistent positive blood cultures Needs 72-hour negative blood cultures before placing new IV access Afebrile, encourage increase oral food intake Vascular surgery following Possible Ileus Hypokalemia, hypomagnesemia --CT abdomen and pelvis showed mildly dilated small bowel loops with the air- fluid level General surgery was consulted; no acute intervention Continue diet as tolerated Replete electrolytes as needed (3) Transaminitis: Plan: Mild, may be due to sepsis AST 76, ALT 55, alk phos 115, T. bili 0.1 Monitor LFTs (4) On total parenteral nutrition (TPN): (5) Gastrointestinal dysmotility: Plan: Patient was recently evaluated at [place] and started on prucalopride (has not started yet) and erythromycin. Plan to follow up after discharge. Discussed with Dr. Pablo Camp cosmetologist at [facility]: Consideration for J-tube. Has follow-up appointment on May 27, 2025 at 2:20 PM. 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 SQ CODE STATUS Full code Admission and Anticipated Discharge Date Admission Date: May 06, 2025 Subjective Patient is seen and examined at bedside States having erythematous rash with monitor stickers Discussed with patient's family at bedside Reports chronic nausea, abdominal discomfort No new complaints Denies any chest pain, dyspnea, dizziness Repeat blood cultures negative to date Review of Systems Review of Systems: All systems reviewed & are unremarkable except as noted in Subjective Physical Exam Physical Exam: Physical Exam: Vitals signs as noted above General Appearance:Thin, frail, no apparent distress Head: normocephalic, Atraumatic Eyes: normal inspection, EOMI Neck: supple, Trachea midline Respiratory/Chest: Normal breath sounds, CTA, No accessory muscle use Cardiovascular: S1, S2, No murmur Abdomen/GI:Soft, Non tender, Bowel sounds present Extremities/Musculoskeletal:normal inspection, no edema Neurologic/Psych:AAOX3, grossly no focal neurological deficits Skin: normal color, warm Results & Data Results & Data Vital Signs (Past 12 Hours) Vital Signs Temp Pulse Pulse Resp BP Pulse Ox O2 Del Method 05/13/25 06:58 36.7 C 82 98/68 L 96 Room Air 05/13/25 03:42 36.5 C 78 20 107/69 97 Room Air Laboratory Results [facility] [place] 05/13/25 05:26 Sodium 141 Potassium 4.2 D Chloride 110 H Carbon Dioxide 24 BUN 5 L Creatinine 0.66 Glucose 97 Calcium 9.0
[2025-05-14] MEDS: D5W AND 1/2NSS + 20MEQ KCL 20 MEQ/1,000 ML BAG IV SCH (09:51)
--- NOTE | 2025-05-14 15:18 | Hospitalist Progress Note ---
Date of Service May 14, 2025 Assessment & Plan (1) Sepsis: (2) History of central line-associated bloodstream infection (CLABSI): Plan: Patient presenting from home for evaluation of nausea, vomiting, chills, rigors. Patient recently admitted to [facility] 04/09 through 04/19 for E. coli bacteremia. right-sided Chao catheter placed on 04/18. Patient was discharged on IV ceftriaxone and completed 14 days of therapy. Chao catheter became nonfunctioning and patient underwent replacement on 05/02/2025. Bloodstream infection due to central venous catheter, POA Sepsis POA Fungemia ( Sarah Glabrata) H/O of GI dysmotility on TPN via Chao catheter; history of multiple catheter related infection. Recent infection on 04/09 with E. coli bacteremia. She presents with fever, chills, nausea and vomiting -- Blood cultures from 05/06/25: Grew Streptococcus mitis/oralis group, Staph epidermidis, Sarah glabrata, Sarah tropicalis -- Blood cultures from 05/10/2025 growing Enterobacter cloacae complex, Klebsiella, Enterobacter --Catheter tip cultures--preliminary culture growing Enterobacter cloacae complex --S/P Chao's catheter removed on 05/11/2025 -- Repeat blood cultures 05/12/2025: Negative to date -- Repeat fungal cultures: Pending --ECHO: EF 60 to 65%. Mild mitral regurgitation. Mild mitral valve prolapse. Prolapse of the anterior mitral leaflet. No regional wall motion abnormality. --IV vancomycin,, Zosyn>> transition to IV vancomycin, meropenem --Continue Caspofungin -- Infectious disease consulted. Will need final recommendations based on cultures. Appreciate vascular surgery help Patient needs follow-up with ophthalmology as outpatient to rule out endophthalmitis Will hold off on PPN given persistent positive blood cultures Needs 72-hour negative blood cultures before placing new IV access Encourage increase oral food intake Vascular surgery following Will consider starting peripheral nutrition tomorrow if patient cultures remain negative Possible Ileus Hypokalemia, hypomagnesemia --CT abdomen and pelvis showed mildly dilated small bowel loops with the air- fluid level General surgery was consulted; no acute intervention Continue diet as tolerated Replete electrolytes as needed Will recheck electrolytes tomorrow (3) Transaminitis: Plan: Mild, may be due to sepsis AST 76, ALT 55, alk phos 115, T. bili 0.1 Monitor LFTs (4) On total parenteral nutrition (TPN): (5) Gastrointestinal dysmotility: Plan: Patient was recently evaluated at [place] and started on prucalopride (has not started yet) and erythromycin. Plan to follow up after discharge. Discussed with Dr. Pablo Camp machine riveter at [facility]: Consideration for J-tube. Has follow-up appointment on May 27, 2025 at 2:20 PM. 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 SQ CODE STATUS Full code Admission and Anticipated Discharge Date Admission Date: May 06, 2025 Subjective Patient is seen and examined at bedside No new complaints Rash improving Chronic nausea, abdominal discomfort Poor oral intake Cultures remain negative No other complaints today Review of Systems Review of Systems: All systems reviewed & are unremarkable except as noted in Subjective Physical Exam Physical Exam: Physical Exam: Vitals signs as noted above General Appearance:Thin, frail, no apparent distress Head: normocephalic, Atraumatic Eyes: normal inspection, EOMI Neck: supple, Trachea midline Respiratory/Chest: Normal breath sounds, CTA, No accessory muscle use Cardiovascular: S1, S2, No murmur Abdomen/GI:Soft, Non tender, Bowel sounds present Extremities/Musculoskeletal:normal inspection, no edema Neurologic/Psych:AAOX3, grossly no focal neurological deficits Skin: normal color, warm Results & Data Results & Data Vital Signs (Past 12 Hours) Vital Signs Temp Pulse Resp BP Pulse Ox O2 Del Method 05/14/25 14:16 36.7 C 101 H 18 109/74 98 Room Air 05/14/25 10:25 96/61 L 05/14/25 07:09 36.6 C 74 18 81/54 L 96 Room Air
[2025-05-15 07:29] LABS: Anion Gap 8.0 (3-11); Blood Urea Nitrogen 9.0 mg/dl (6-23); Calcium 10.3 mg/dl (8.6-10.3); Carbon Dioxide 25.0 mmol/L (21-32); Chloride 105.0 mmol/L (98-107); Creatinine Clr Calc Pharmacy 105.1 ml/min; Glucose 88.0 mg/dl (70-99(Fasting)); Magnesium 1.9 mg/dl (1.7-2.4); Potassium 4.1 mmol/L (3.5-5.1); Sodium 138.0 mmol/L (136-145)
--- NOTE | 2025-05-15 09:55 | XRay Report ---
KUB HISTORY: constipation COMPARISON STUDY: 04/09/2021 FINDINGS: PEG tube is present. There is a small oval density overlying the right upper quadrant, poss ible artifact from pill. There is a large amount of retained stool. No bowel obstruction seen. IMPRESSION: Large amount of retained stool. ACT 112: Negative or not required by law. The above report was generated using voice recognition software. It may contain grammatical, syntax o r spelling errors. Electronically signed by: Alton Paula M.D. 05/15/2025 9:54 AM
--- NOTE | 2025-05-15 12:58 | Procedure Note ---
Procedure Note Date of Service May 15, 2025 INTERNAL JUGULAR CENTRAL LINE PROCEDURE NOTE: Procedure: Right Internal Jugular Central Line Placement Head Refrigerating Engineer: Gabriele Turner MD Indication: Central Drug Administration, TPN, Poor Venous Access, Multiple Lab Draws Necessary, etc. Anesthesia: Lidocaine 1% Consent was signed and placed on the chart prior to procedure. Indication, risks, and benefits were explained at length. A time-out was completed verifying correct patient, procedure, site, positioning, and implants(s) or special equipment if applicable. Patients Right side of the Neck was cleansed and draped in the typical sterile fashion using Chloraprep. The Right Internal Jugular Vein and Carotid Artery were identified using ultrasound. The superficial tissue was anesthetized using 5 mL of 1% lidocaine without epinephrine under direct visualization with the ultrasound. After adequate anesthetization was achieved, the Internal Jugular vein was cannulated under direct ultrasound guidance using an introducer needle on a syringe. Good venous blood return was maintained prior to removal of syringe from introducer needle. Using Seldinger Technique, a guide wire was advanced through the introducer needle without resistance. The introducer needle was removed the guidewire was visualized within the vein in multiple views. A small incision was made in penetrating fashion at the guide wire insertion site utilizing an 11 blade scalpel. The dilator was advanced to the vessel without resistance. The dilator was exchanged for the triple lumen catheter, which was advanced into the vessel without resistance. The guide wire was removed intact from the catheter without issue. Claves were placed on each catheter tip with confirmation of good blood flow from each lumen. Each port was easily flushed with sterile saline. The catheter was placed at 17 cm and sutured in place. A sterile CHG-embedded Tegaderm dressing was applied over the catheter with careful attention to sterility. Patient tolerated procedure well. No immediate complications were met. Post procedure x-ray was completed, placement was appropriate with the tip at the Cavo-Atrial junction, and no pneumothorax was noted. [facility] Procedure Codes (Charges) Tubes, Drains, and Vasc Access Procedure 1: Tubes, Drains, and Vasc Access: [id number] Insertion Of Non-tunneled Catheter Age 7 Yrs> Coding CPT Codes Tubes, Drains, and Vasc Access - Tubes, Drains, and Vasc Access: [id number] Insertion Of Non-tunneled Catheter Age 7 Yrs> ([id number]) Additional Codes Date of Service (PG.SURGERY)
--- NOTE | 2025-05-15 13:20 | XRay Report ---
XR chest 1V portable CLINICAL HISTORY: Post central line placement COMPARISON STUDY: 05/06/2025 FINDINGS: Right central catheter tip is just above the cavoatrial junction. No pneumothorax. No conso lidation or pleural effusion seen. IMPRESSION: No pneumothorax. ACT 112: Negative or not required by law. Electronically signed by: Alton Paula M.D. 05/15/2025 1:19 PM
--- NOTE | 2025-05-15 14:28 | Pharmacy Report ---
Pharmacy PN Follow-up Note - Date of Service May 15, 2025 - Objective Height & Weight (Last Documented) Height 5 ft 3 in Weight 50.4 kg Diet Order(s) 05/11/25 Lunch Diet 05/16/25 00:01 NPO Intake & Ouput (24hrs) 05/14/25 05/15/25 05/16/25 07:59 06:59 06:59 Intake Total Balance Selected Laboratory Results 05/15/25 06:15 Sodium 138 Potassium 4.1 Chloride 105 Carbon Dioxide 25 Anion Gap 8 BUN 9 Creatinine 0.64 BUN/Creatinine Ratio 14.1 Glucose 88 Calcium 10.3 Phosphorus 4.2 Magnesium 1.9 - Assessment & Plan Assessment: * PN previously being held since 05/11 while awaiting results of repeat blood cultures, which currently show no growth at 48 hours. PPN to be restarted today. * Patient lost all peripheral IV access earlier today. Right IJ central line placed this afternoon. * Macronutrient recs provided by nutrition, appreciated (anticipating lipids twice weekly on Friday and ) * Labs largely stable, calcium of 10.3 mg/dL today (will hold calcium today and recheck tomorrow) * Continues on broad spectrum antimicrobial regimen for polymicrobial CLABSI Plan: * Macronutrients: * Amino Acids: 71 grams/day * Dextrose: 84 grams/day * Lipids: -- grams/day * Micronutrients: * Sodium phosphate: 9 mMol/day * Sodium chloride: 80 mEq/day * Sodium acetate: 60 mEq/day * Potassium acetate: 50 mEq/day * Magnesium sulfate: 8.12 mEq/day * Multivitamins: 10 mL/day * Trace elements: 1 mL/day * Folic Acid: 1 mg/day * Thiamine: 100 mg/daily * Total volume of 1784 mL will be infused over 24 hours and will provide 571 kcal/day * Patient is on PPN which has a maximum mOsm/L of 900. Final osmolarity of current solution is 865 mOsm/L. * Labs will be ordered per PN protocol. * Pharmacy will follow and adjust PN orders on a daily basis. Thank you!
[2025-05-15] MEDS: PERIPHERAL TPN IV SCH (15:55)
[2025-05-15] MEDS: [UNRECOGNIZED DRUG - OTHER] IV SCH (15:55)
--- NOTE | 2025-05-15 16:06 | Hospitalist Progress Note ---
Date of Service May 15, 2025 Assessment & Plan (1) Sepsis: (2) History of central line-associated bloodstream infection (CLABSI): Plan: Patient presenting from home for evaluation of nausea, vomiting, chills, rigors. Patient recently admitted to [facility] 04/09 through 04/19 for E. coli bacteremia. right-sided Chao catheter placed on 04/18. Patient was discharged on IV ceftriaxone and completed 14 days of therapy. Chao catheter became nonfunctioning and patient underwent replacement on 05/02/2025. Bloodstream infection due to central venous catheter, POA Sepsis POA Fungemia ( Sarah Glabrata) H/O of GI dysmotility on TPN via Chao catheter; history of multiple catheter related infection. Recent infection on 04/09 with E. coli bacteremia. She presents with fever, chills, nausea and vomiting -- Blood cultures from 05/06/25: Grew Streptococcus mitis/oralis group, Staph epidermidis, Sarah glabrata, Sarah tropicalis -- Blood cultures from 05/10/2025 growing Enterobacter cloacae complex, Klebsiella, Enterobacter --Catheter tip cultures--preliminary culture growing Enterobacter cloacae complex --S/P Chao's catheter removed on 05/11/2025 -- Repeat blood cultures 05/12/2025: Negative to date -- Repeat fungal cultures: Pending --ECHO: EF 60 to 65%. Mild mitral regurgitation. Mild mitral valve prolapse. Prolapse of the anterior mitral leaflet. No regional wall motion abnormality. --IV vancomycin,, Zosyn>> transition to IV vancomycin, meropenem --Continue Caspofungin -- Infectious disease consulted. Will need final recommendations based on cultures. Appreciate vascular surgery help Patient needs follow-up with ophthalmology as outpatient to rule out endophthalmitis Resume PPN today Had central line placement on 05/15/2025 as patient lost peripheral IV access Encourage increase oral food intake Vascular surgery following Will keep her n.p.o. after midnight for possible Chao's/PICC line placement Constipation Possible Ileus Hypokalemia, hypomagnesemia --CT abdomen and pelvis showed mildly dilated small bowel loops with the air- fluid level General surgery was consulted; no acute intervention Continue diet as tolerated Replete electrolytes as needed Started on bowel regimen (3) Transaminitis: Plan: Mild, may be due to sepsis AST 76, ALT 55, alk phos 115, T. bili 0.1 Monitor LFTs (4) On total parenteral nutrition (TPN): (5) Gastrointestinal dysmotility: Plan: Patient was recently evaluated at [place] and started on prucalopride (has not started yet) and erythromycin. Plan to follow up after discharge. Discussed with Dr. 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 Has follow-up appointment on May 27, 2025 at 2:20 PM. 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 SQ CODE STATUS Full code Admission and Anticipated Discharge Date Admission Date: May 06, 2025 Subjective Patient is seen and examined at bedside Reports constipation Last IV access, required central line placement Chronic nausea, abdominal discomfort No other complaints Review of Systems Review of Systems: All systems reviewed & are unremarkable except as noted in Subjective Physical Exam Physical Exam: Physical Exam: Vitals signs as noted above General Appearance:Thin, frail, no apparent distress Head: normocephalic, Atraumatic Eyes: normal inspection, EOMI Neck: supple, Trachea midline Respiratory/Chest: Normal breath sounds, CTA, No accessory muscle use Cardiovascular: S1, S2, No murmur Abdomen/GI:Soft, Non tender, Bowel sounds present Extremities/Musculoskeletal:normal inspection, no edema Neurologic/Psych:AAOX3, grossly no focal neurological deficits Skin: normal color, warm Results & Data Results & Data Vital Signs (Past 12 Hours) Vital Signs Temp Pulse Resp BP Pulse Ox O2 Del Method 05/15/25 12:51 36.8 C 96 H 18 117/81 95 Room Air 05/15/25 07:45 36.5 C 78 16 93/58 L 97 Room Air Laboratory Results [facility] 05/15/25 06:15 Sodium 138 Potassium 4.1 Chloride 105 Carbon Dioxide 25 BUN 9 Creatinine 0.64 Glucose 88 Calcium 10.3
[2025-05-15] MEDS: POLYETHYLENE (MIRALAX) 17 GM PACK PO SCH (18:28)
[2025-05-15] MEDS: DOCUSATE SODIUM 100 MG CAP PO SCH (20:08)
[2025-05-15] MEDS: KETOROLAC TROMETHAMINE 15 MG/ML VIAL IV ONE (22:05)
[2025-05-16 09:17] LABS: Anion Gap 7.0 (3-11); Blood Urea Nitrogen 16.0 mg/dl (6-23); Calcium 9.6 mg/dl (8.6-10.3); Carbon Dioxide 28.0 mmol/L (21-32); Chloride 105.0 mmol/L (98-107); Creatinine Clr Calc Pharmacy 96.1 ml/min; Glucose 89.0 mg/dl (70-99(Fasting)); Magnesium 2.2 mg/dl (1.7-2.4); Potassium 4.0 mmol/L (3.5-5.1); Sodium 140.0 mmol/L (136-145)
[2025-05-16] MEDS: KETOROLAC TROMETHAMINE 15 MG/ML VIAL IV ONE (12:24)
--- NOTE | 2025-05-16 15:12 | Pharmacy Report ---
Pharmacy PN Follow-up Note - Date of Service May 16, 2025 - Subjective Patient is currently on day #2 of TPN. - Objective Height & Weight (Last Documented) Height 5 ft 3 in Weight 50.4 kg Diet Order(s) 05/16/25 Breakfast Diet 05/17/25 00:01 NPO Intake & Ouput (24hrs) 05/15/25 05/16/25 05/17/25 06:59 06:59 06:59 Intake Total 2823.25 / 2823.25 577 / 577 Balance 2823.25 / 2823.25 577 / 577 Selected Laboratory Results 05/16/25 08:43 Sodium 140 Potassium 4.0 Chloride 105 Carbon Dioxide 28 Anion Gap 7 BUN 16 Creatinine 0.70 BUN/Creatinine Ratio 22.9 H Glucose 89 Calcium 9.6 Phosphorus 3.3 Magnesium 2.2 - Assessment & Plan Assessment: 05/16 * Discussed with provider and IV team unable to replace peripheral site lost yesterday d/t poor access. Provider okay to utilize central line for TPN moving forward. Patient will ultimately need port placed before discharge for roasterman access. Plan to switch to TPN today. Patient admitted >10 days, only received parenteral nutrition x 2 days during that time. Will be conservative with Kcals and slowly titrate up regimen for today. Dietary recommending lipids 2x/week - could consider potentially adding in tomorrow as long as labs stable 05/15 * PN previously being held since 05/11 while awaiting results of repeat blood cultures, which currently show no growth at 48 hours. PPN to be restarted today. * Patient lost all peripheral IV access earlier today. Right IJ central line placed this afternoon. * Macronutrient recs provided by nutrition, appreciated (anticipating lipids twice weekly on Friday and ) * Labs largely stable, calcium of 10.3 mg/dL today (will hold calcium today and recheck tomorrow) * Continues on broad spectrum antimicrobial regimen for polymicrobial CLABSI Plan: * Macronutrients: * Amino Acids: 76 grams/day * Dextrose: 134 grams/day * Lipids: -- grams/day * Micronutrients: * Sodium phosphate: 9 mMol/day * Sodium chloride: 40 mEq/day * Sodium acetate: 30 mEq/day * Potassium acetate: 50 mEq/day * Magnesium sulfate: 4.06 mEq/day * Multivitamins: 10 mL/day * Trace elements: 1 mL/day * Folic Acid: 1 mg/day * Total volume of 1031 mL will be infused over 24 hours and will provide 764 kcal/day * Labs will be ordered per PN protocol. * Pharmacy will follow and adjust PN orders on a daily basis. Thank you!
[2025-05-16] MEDS: CENTRAL TPN IV SCH (15:40)
[2025-05-16] MEDS: [UNRECOGNIZED DRUG - OTHER] IV SCH (15:40)
--- NOTE | 2025-05-16 15:54 | Infectious Disease Progress Nt ---
Date of Service May 16, 2025 Subjective Patient not seen today. Patient is a 29yo female with TPN dependence admitted 05/06 with polymicrobial bloodstream infection from CVL previously placed on 04/18. Blood cultures negative on 05/08, but again positive with multiple organisms on 05/10. Line removed on 05/11. Cultures from 05/12 have subsequently remained negative. No fevers. TTE on 05/07 negative. Recommend the followin. Vancomycin to continue per pharmacy recommended dosing 2. D/C meropenem 3. Ertapenem 1g IV qd 4. Caspofungin 50mg IV qd The above therapies should extend through 05/25/25. While on therapy, please be sure to check a CBC, BMP and vanco level once weekly. Results & Data Vital Signs (Past 12 Hours) Vital Signs Temp Pulse Pulse Resp BP Pulse Ox O2 Del Method 05/16/25 14:39 36.6 C 89 16 104/72 98 Room Air 05/16/25 07:31 36.6 C 81 15 106/73 98 Room Air
--- NOTE | 2025-05-16 16:12 | Hospitalist Progress Note ---
Date of Service May 16, 2025 Assessment & Plan (1) Sepsis: (2) History of central line-associated bloodstream infection (CLABSI): Plan: Patient presenting from home for evaluation of nausea, vomiting, chills, rigors. Patient recently admitted to [facility] 04/09 through 04/19 for E. coli bacteremia. right-sided Chao catheter placed on 04/18. Patient was discharged on IV ceftriaxone and completed 14 days of therapy. Chao catheter became nonfunctioning and patient underwent replacement on 05/02/2025. Bloodstream infection due to central venous catheter, POA Sepsis POA Fungemia ( Sarah Glabrata) H/O of GI dysmotility on TPN via Chao catheter; history of multiple catheter related infection. Recent infection on 04/09 with E. coli bacteremia. She presents with fever, chills, nausea and vomiting -- Blood cultures from 05/06/25: Grew Streptococcus mitis/oralis group, Staph epidermidis, Sarah glabrata, Sarah tropicalis -- Blood cultures from 05/10/2025 growing Enterobacter cloacae complex, Klebsiella, Enterobacter --Catheter tip cultures--preliminary culture growing Enterobacter cloacae complex --S/P Chao's catheter removed on 05/11/2025 -- Repeat blood cultures 05/12/2025: Negative to date -- Repeat fungal cultures: No growth to date --ECHO: EF 60 to 65%. Mild mitral regurgitation. Mild mitral valve prolapse. Prolapse of the anterior mitral leaflet. No regional wall motion abnormality. --IV vancomycin,, Zosyn>> transition to IV vancomycin, meropenem>> transition to IV vancomycin, ertapenem --Continue Caspofungin -- Appreciate ID input --Discussed with infectious disease on 05/16/2025. Appreciate input. Need to continue IV vancomycin, function, ertapenem until 05/25/2025. Appreciate vascular surgery help Patient needs follow-up with ophthalmology as outpatient to rule out endophthalmitis Continue parenteral nutrition Had central line placement on 05/15/2025 as patient lost peripheral IV access Encourage increase oral food intake N.p.o. after midnight for Chao's catheter placement tomorrow Constipation Possible Ileus Hypokalemia, hypomagnesemia --CT abdomen and pelvis showed mildly dilated small bowel loops with the air- fluid level General surgery was consulted; no acute intervention Continue diet as tolerated Replete electrolytes as needed Continue bowel regimen (3) Transaminitis: Plan: Mild, may be due to sepsis AST 76, ALT 55, alk phos 115, T. bili 0.1 Monitor LFTs (4) On total parenteral nutrition (TPN): (5) Gastrointestinal dysmotility: Plan: Patient was recently evaluated at [place] and started on prucalopride (has not started yet) and erythromycin. Plan to follow up after discharge. Discussed with Dr. Pablo Camp sponge press operator at [facility]: Consideration for J-tube. Has follow-up appointment on May 27, 2025 at 2:20 PM. 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 SQ CODE STATUS Full code Admission and Anticipated Discharge Date Admission Date: May 06, 2025 Subjective Patient is seen and examined at bedside States having some discomfort at the central line area Still has no bowel movement Chronic nausea, abdominal discomfort Discussed with infectious disease today Review of Systems Review of Systems: All systems reviewed & are unremarkable except as noted in Subjective Physical Exam Physical Exam: Physical Exam: Vitals signs as noted above General Appearance:Thin, frail, no apparent distress Head: normocephalic, Atraumatic Eyes: normal inspection, EOMI Neck: supple, Trachea midline Respiratory/Chest: Normal breath sounds, CTA, No accessory muscle use Cardiovascular: S1, S2, No murmur Abdomen/GI:Soft, Non tender, Bowel sounds present Extremities/Musculoskeletal:normal inspection, no edema Neurologic/Psych:AAOX3, grossly no focal neurological deficits Skin: normal color, warm Results & Data Results & Data Vital Signs (Past 12 Hours) Vital Signs Temp Pulse Pulse Resp BP Pulse Ox O2 Del Method 05/16/25 14:39 36.6 C 89 16 104/72 98 Room Air 05/16/25 07:31 36.6 C 81 15 106/73 98 Room Air Laboratory Results [facility] 05/16/25 08:43 Sodium 140 Potassium 4.0 Chloride 105 Carbon Dioxide 28 BUN 16 Creatinine 0.70 Glucose 89 Calcium 9.6
[2025-05-16] MEDS: ERTAPENEM 1000MG 1,000 MG/10 ML SYR IV SCH (17:49)
[2025-05-16] MEDS: LORazepam Inj 0.25 MG in SYRINGE 0.125 ML IV STA (19:36)
[2025-05-17 07:48] LABS: Hematocrit (blood only) 30.4 % (37.0-47.0); Hemoglobin 9.6 g/dl (12.0-16.0); Mean Corpuscular Hemoglobin 26.9 pg (25.0-34.0); Mean Corpuscular Volume 85.2 fL (80.0-100.0); Platelet Count 515 K/uL (130-400); RDW Standard Deviation 41.8 fL (36.4-46.3); Red Blood Count 3.57 M/uL (4.20-5.40); White Blood Count 6.04 K/ul (4.8-10.8)
[2025-05-17 08:07] LABS: Anion Gap 5.0 (3-11); Blood Urea Nitrogen 19.0 mg/dl (6-23); Calcium 9.3 mg/dl (8.6-10.3); Carbon Dioxide 28.0 mmol/L (21-32); Chloride 105.0 mmol/L (98-107); Creatinine Clr Calc Pharmacy 110.2 ml/min; Glucose 93.0 mg/dl (70-99(Fasting)); Magnesium 2.2 mg/dl (1.7-2.4); Potassium 4.1 mmol/L (3.5-5.1); Sodium 138.0 mmol/L (136-145)
--- NOTE | 2025-05-17 08:39 | Vascular Surgery Progress Note ---
<Statement entered by Ismael Espana MD - 05/17/25 09:27> Plan today for rewiring of current right internal jugular central line to tunneled central venous line. Lack of peripheral IV access is becoming a more significant issue. Date of Service May 17, 2025 Assessment & Plan (1) CLABSI (central line-associated bloodstream infection): Plan: Continues with treatment for polymicrobial blood stream infection, to include bart, along with positive culture from tip of Chao which was removed 05/11 Now has negative blood cultures since 05/12 Has unfortunately also lost peripheral access and has temporary central line in place. Will proceed with conversion to tunneled line today in the OR with anesthesia. Consent obtained this morning and is in chart. All questions and concerns were answered/addressed. Continue IV antibiotics per ID and primary team. Admission and Anticipated Discharge Date Admission Date: May 06, 2025 Subjective No complaints this morning. Had right sided IJ temporary central line placed by armature tester over the weekend due to loss of IV access and inability to place additional US guided IV. Central line working well. Blood cultures from 05/12 have continued to be negative from both fungus and bacteria. She denies any fevers or chills. Physical Exam Physical Exam: Thin, in no distress, lying in bed, comfortable right IJ line in place and infusing without difficulty right chest with well healed incisions from prior central lines Results & Data Vital Signs (Past 12 Hours) Vital Signs Temp Pulse Resp BP BP Pulse Ox O2 Del Method 05/17/25 07:24 36.6 C 77 16 99/65 L 96 Room Air 05/16/25 22:49 36.9 C 84 16 103/70 98 Room Air Laboratory Results 05/17/25 05/17/25 05/16/25 07:36 04:24 20:49 WBC 6.04 RBC 3.57 L Hgb 9.6 L Hct 30.4 L MCV 85.2 MCH 26.9 MCHC 31.6 L RDW Std Deviation 41.8 RDW Coeff of Priscilla 13.4 Plt Count 515 H MPV 8.5 L Sodium 138 Potassium 4.1 Chloride 105 Carbon Dioxide 28 Anion Gap 5 BUN 19 Creatinine 0.61 Est Cr Clr Drug Dosing 110.2 eGFR 125.59 BUN/Creatinine Ratio 31.1 H Glucose 93 POC Glucose 112 H 112 H Calcium 9.3 Phosphorus 2.7 Magnesium 2.2 Misc Micro Test 05/16/25 05/16/25 05/16/25 14:43 08:59 08:43 WBC RBC Hgb Hct MCV MCH MCHC RDW Std Deviation RDW Coeff of Priscilla Plt Count MPV Sodium 140 Potassium 4.0 Chloride 105 Carbon Dioxide 28 Anion Gap 7 BUN 16 Creatinine 0.70 Est Cr Clr Drug Dosing 96.1 eGFR 121.49 BUN/Creatinine Ratio 22.9 H Glucose 89 POC Glucose 108 H 90 Calcium 9.6 Phosphorus 3.3 Magnesium 2.2 Misc Micro Test 05/06/25 07:48 WBC RBC Hgb Hct MCV MCH MCHC RDW Std Deviation RDW Coeff of Priscilla Plt Count MPV Sodium Potassium Chloride Carbon Dioxide Anion Gap BUN Creatinine Est Cr Clr Drug Dosing eGFR BUN/Creatinine Ratio Glucose POC Glucose Calcium Phosphorus Magnesium Misc Micro Test See Scanned Report Medications Administered Home Medications Medication Instructions Recorded Confirmed Last Taken baclofen 10 mg tablet 10 mg PO BID 04/09/25 05/06/25 05/01/25 21:00 cholecalciferol (vitamin D3) 1,250 1,250 mcg PO WK 04/09/25 05/06/25 04/27/25 09:00 mcg (50,000 unit) tablet cyanocobalamin (vitamin B-12) 1,000 mcg IM MONTHLY 04/09/25 05/06/25 Unknown 1,000 mcg/mL injection solution duloxetine 20 mg capsule,delayed 20 mg PO DAILY 04/09/25 05/06/25 05/01/25 21:00 release famotidine 20 mg tablet 20 mg PO BID 04/09/25 05/06/25 05/01/25 21:00 linaclotide 145 mcg capsule 145 mcg PO DAILY PRN Constipation 04/09/25 05/06/25 Unknown loratadine 10 mg tablet 10 mg PO DAILY 04/09/25 05/06/25 05/01/25 21:00 montelukast 10 mg tablet 10 mg PO HS 04/09/25 05/06/25 05/01/25 21:00 olanzapine 2.5 mg tablet 2.5 mg PO HS 04/09/25 05/06/25 05/01/25 21:00 ondansetron 8 mg disintegrating 8 mg PO Q8H PRN Nausea And Vomiting 04/09/25 05/06/25 05/01/25 21:00 tablet erythromycin ethylsuccinate 200 100 mg PO TID 05/06/25 05/06/25 Unknown mg/5 mL oral powder for suspension hydroxyzine HCl 50 mg tablet 50 mg PO QID PRN Anxiety 05/06/25 05/06/25 Unknown prucalopride 2 mg tablet 2 mg PO DAILY 05/06/25 05/06/25 Unknown Active Medications Generic Name Dose Route Start Last Admin Trade Name Freq PRN Reason Stop Dose Admin Baclofen 10 mg 05/06/25 21:00 05/16/25 19:39 Baclofen 10 Mg Tab PO 06/05/25 20:59 10 mg BID ZULY Administration Docusate Sodium 100 mg 05/15/25 21:00 05/16/25 19:40 Docusate Sodium 100 Mg Cap PO 06/14/25 20:59 Not Given BID ZULY Duloxetine HCl 20 mg 05/07/25 09:00 05/16/25 09:21 Duloxetine Hcl 20 Mg Cap PO 06/06/25 08:59 20 mg DAILY ZULY Administration Erythromycin Ethylsuccinate 100 mg 05/06/25 14:00 05/16/25 20:18 Erythromycin Ethylsucc Susp 200 Mg/5 Ml 100 Ml Btl PO 06/05/25 13:59 100 mg TID ZULY Administration Heparin Sodium (Porcine) 5,000 units 05/09/25 21:00 05/16/25 19:40 Heparin Sod 5,000 Unit/0.5 Ml Vial SQ 06/08/25 20:59 Not Given Q12 ZULY Famotidine 20 mg in 5 mls @ 2.5 mls/min 05/06/25 11:45 05/17/25 00:38 Pepcid 20mg Iv Push IV 06/05/25 11:44 2.5 mls/min Q12H ZULY Administration Thiamine HCl 200 mg/ Sodium 52 mls @ 210 mls/hr 05/07/25 09:00 05/16/25 10:00 Chloride IV 06/06/25 08:59 Infused QAM ZULY Infusion Vancomycin HCl 750 mg/ Sodium 265 mls @ 200 mls/hr 05/07/25 12:00 05/17/25 08:04 Chloride IV 05/25/25 11:59 Infused Q8H ZULY Infusion Caspofungin 50 mg/ Sodium 260 mls @ 250 mls/hr 05/09/25 09:00 05/16/25 10:55 Chloride IV 05/25/25 08:59 Infused Q24H ZULY Infusion Protocol Amino Acids/Dextrose 1,031 ml/ 1,031 mls @ 43 mls/hr 05/16/25 16:00 05/16/25 15:40 Nutrition (Parenteral) IV 05/17/25 15:58 43 mls/hr .[id number] ZULY Administration Protocol Ertapenem 1,000 mg in 10 mls @ 2 mls/min 05/16/25 17:00 05/16/25 17:49 Invanz 1000mg IV 05/25/25 16:59 2 mls/min Q24H ZULY Administration Loratadine 10 mg 05/07/25 09:00 05/16/25 09:21 Loratadine 10 Mg Tab PO 06/06/25 08:59 10 mg DAILY ZULY Administration Magnesium Chloride 64 mg 05/12/25 21:00 05/16/25 19:39 Magnesium Chloride W/Calcium 64mg Delayed Rel Tab PO 06/11/25 20:59 64 mg BID ZULY Administration Montelukast Sodium 10 mg 05/06/25 21:00 05/16/25 19:39 Montelukast Sodium 10 Mg Tablet PO 06/05/25 20:59 10 mg HS ZULY Administration Olanzapine 2.5 mg 05/06/25 21:00 05/16/25 19:39 Olanzapine 2.5 Mg Tab PO 06/05/25 20:59 2.5 mg HS ZULY Administration Ondansetron HCl 4 mg 05/06/25 10:34 05/16/25 17:53 Ondansetron Inj 2 Mg/Ml 2 Ml Vial IV 06/05/25 10:33 4 mg Q6H PRN Administration Nausea And Vomiting Oxycodone HCl 5 mg 05/15/25 15:08 05/15/25 15:55 Oxycodone Hcl Ir 5 Mg Tab (Immediate Release) PO 05/29/25 15:07 5 mg Q8H PRN Administration Pain Polyethylene Glycol 17 gm 05/15/25 16:15 05/16/25 09:22 Polyethylene (Miralax) 17 Gm Pack PO 06/14/25 16:14 Not Given DAILY ZULY Zinc Acetate/Diphenhydramine 1 appln 05/12/25 22:30 05/12/25 23:43 Diphenhydramine 2%/Zinc 0.1% Cream 28.4gm Tube EXT 06/11/25 22:29 1 appln QID PRN Administration itchy skin PG Care Time/CCT Total # of Minutes Spent Total Time Spent with Patient: Total time spent is greater than 50% in coordination of care (as documented) at patient's floor/unit and/or counseling patient: (1) CLABSI (central line-associated bloodstream infection) Encounter type: subsequent encounter Qualified Code(s): T80.211D - Bloodstream infection due to central venous catheter, subsequent encounter
[2025-05-17] MEDS: LACTATED RINGER'S 1,000 ML IV SCH (10:52)
[2025-05-17] MEDS ORDERED: MIDAZOLAM HCL 1 MG/ML 2ML VIAL ONE (11:28)
[2025-05-17] MEDS ORDERED: PROPOFOL IV EMULSION 10 MG/ML 20 ML VIAL IV ONE ×2 (11:29→11:44)
[2025-05-17] MEDS ORDERED: ONDANSETRON INJ 2 MG/ML 2 ML VIAL ONE (11:29)
--- NOTE | 2025-05-17 11:35 | Anesthesiology Consultation ---
Date of Service May 17, 2025 Assessment & Plan Chart Review Chart Review: Acceptable Risk for Surgery Consults Requested none History Surgery Operation Date: 05/11/25 10:00 Proposed Procedures p Chao Catheter Removal - Ismael Espana MD Operation Date: 05/17/25 13:00 Proposed Procedures p Chao Catheter Insertion - Ismael Espana MD Height/Weight Height: 5 ft 3 in Weight: 50.4 kg Allergies Allergy/AdvReac Type Severity Reaction Status Date / Time diphenhydramine Allergy Severe Urticaria, Verified 05/04/25 14:05 [From Benadryl] severe anxiety, jittery prochlorperazine Allergy Severe Anaphylaxis Verified 05/04/25 14:05 [From Compazine] adhesive Allergy Intermediate Redness, Verified 05/04/25 14:05 swelling gluten Allergy Intermediate Hives, GI Verified 05/04/25 14:05 upset peanut Allergy Intermediate Itchy Verified 05/04/25 14:05 throat tree nut Allergy Intermediate Itchy Verified 05/04/25 14:05 throat pollen extracts Allergy Mild Itchy Verified 05/04/25 14:05 eyes, sneezing, congestion chlorhexidine Allergy Unknown Unknown Verified 05/04/25 14:05 iron [From Venofer] AdvReac Severe Abdominal Verified 05/04/25 14:05 Pain fentanyl AdvReac Intermediate nausea and Verified 05/06/25 10:10 vomiting Latex, Natural Rubber AdvReac Intermediate Redness, Verified 05/04/25 14:05 itchy polyurethane Allergy Hives Uncoded 05/04/25 14:05 polyurethane power port Allergy Itching Uncoded 05/04/25 14:05 Medications Home Medications Medication Instructions Recorded Confirmed Last Taken baclofen 10 mg tablet 10 mg PO BID 04/09/25 05/06/25 05/01/25 21:00 cholecalciferol (vitamin D3) 1,250 1,250 mcg PO WK 04/09/25 05/06/25 04/27/25 09:00 mcg (50,000 unit) tablet cyanocobalamin (vitamin B-12) 1,000 mcg IM MONTHLY 04/09/25 05/06/25 Unknown 1,000 mcg/mL injection solution duloxetine 20 mg capsule,delayed 20 mg PO DAILY 04/09/25 05/06/25 05/01/25 21:00 release famotidine 20 mg tablet 20 mg PO BID 04/09/25 05/06/25 05/01/25 21:00 linaclotide 145 mcg capsule 145 mcg PO DAILY PRN Constipation 04/09/25 05/06/25 Unknown loratadine 10 mg tablet 10 mg PO DAILY 04/09/25 05/06/25 05/01/25 21:00 montelukast 10 mg tablet 10 mg PO HS 04/09/25 05/06/25 05/01/25 21:00 olanzapine 2.5 mg tablet 2.5 mg PO HS 04/09/25 05/06/25 05/01/25 21:00 ondansetron 8 mg disintegrating 8 mg PO Q8H PRN Nausea And Vomiting 04/09/25 05/06/25 05/01/25 21:00 tablet erythromycin ethylsuccinate 200 100 mg PO TID 05/06/25 05/06/25 Unknown mg/5 mL oral powder for suspension hydroxyzine HCl 50 mg tablet 50 mg PO QID PRN Anxiety 05/06/25 05/06/25 Unknown prucalopride 2 mg tablet 2 mg PO DAILY 05/06/25 05/06/25 Unknown Active Medications Generic Name Dose Route Start Last Admin Trade Name Freq PRN Reason Stop Dose Admin Baclofen 10 mg 05/06/25 21:00 05/17/25 09:11 Baclofen 10 Mg Tab PO 06/05/25 20:59 10 mg BID ZULY Administration Docusate Sodium 100 mg 05/15/25 21:00 05/17/25 09:11 Docusate Sodium 100 Mg Cap PO 06/14/25 20:59 Not Given BID ZULY Duloxetine HCl 20 mg 05/07/25 09:00 05/17/25 09:11 Duloxetine Hcl 20 Mg Cap PO 06/06/25 08:59 20 mg DAILY ZULY Administration Erythromycin Ethylsuccinate 100 mg 05/06/25 14:00 05/17/25 09:24 Erythromycin Ethylsucc Susp 200 Mg/5 Ml 100 Ml Btl PO 06/05/25 13:59 100 mg TID ZULY Administration Heparin Sodium (Porcine) 5,000 units 05/09/25 21:00 05/17/25 09:11 Heparin Sod 5,000 Unit/0.5 Ml Vial SQ 06/08/25 20:59 Not Given Q12 ZULY Famotidine 20 mg in 5 mls @ 2.5 mls/min 05/06/25 11:45 05/17/25 00:38 Pepcid 20mg Iv Push IV 06/05/25 11:44 2.5 mls/min Q12H ZULY Administration Thiamine HCl 200 mg/ Sodium 52 mls @ 210 mls/hr 05/07/25 09:00 05/17/25 09:30 Chloride IV 06/06/25 08:59 Infused QAM ZULY Infusion Vancomycin HCl 750 mg/ Sodium 265 mls @ 200 mls/hr 05/07/25 12:00 05/17/25 08:04 Chloride IV 05/25/25 11:59 Infused Q8H ZULY Infusion Caspofungin 50 mg/ Sodium 260 mls @ 250 mls/hr 05/09/25 09:00 05/17/25 10:36 Chloride IV 05/25/25 08:59 Infused Q24H ZULY Infusion Protocol Amino Acids/Dextrose 1,031 ml/ 1,031 mls @ 43 mls/hr 05/16/25 16:00 05/16/25 15:40 Nutrition (Parenteral) IV 05/17/25 15:58 43 mls/hr .[id number] ZULY Administration Protocol Ertapenem 1,000 mg in 10 mls @ 2 mls/min 05/16/25 17:00 05/16/25 17:49 Invanz 1000mg IV 05/25/25 16:59 2 mls/min Q24H ZULY Administration Lactated Ringer's 1,000 mls @ 15 mls/hr 05/17/25 10:45 05/17/25 10:52 Lr IV 05/20/25 10:44 15 mls/hr .Q24H ZULY Administration Loratadine 10 mg 05/07/25 09:00 05/17/25 09:11 Loratadine 10 Mg Tab PO 06/06/25 08:59 10 mg DAILY ZULY Administration Magnesium Chloride 64 mg 05/12/25 21:00 05/17/25 09:11 Magnesium Chloride W/Calcium 64mg Delayed Rel Tab PO 06/11/25 20:59 64 mg BID ZULY Administration Montelukast Sodium 10 mg 05/06/25 21:00 05/16/25 19:39 Montelukast Sodium 10 Mg Tablet PO 06/05/25 20:59 10 mg HS ZULY Administration Olanzapine 2.5 mg 05/06/25 21:00 05/16/25 19:39 Olanzapine 2.5 Mg Tab PO 06/05/25 20:59 2.5 mg HS ZULY Administration Ondansetron HCl 4 mg 05/06/25 10:34 05/17/25 08:54 Ondansetron Inj 2 Mg/Ml 2 Ml Vial IV 06/05/25 10:33 4 mg Q6H PRN Administration Nausea And Vomiting Oxycodone HCl 5 mg 05/15/25 15:08 05/15/25 15:55 Oxycodone Hcl Ir 5 Mg Tab (Immediate Release) PO 05/29/25 15:07 5 mg Q8H PRN Administration Pain Polyethylene Glycol 17 gm 05/15/25 16:15 05/17/25 09:12 Polyethylene (Miralax) 17 Gm Pack PO 06/14/25 16:14 Not Given DAILY ZULY Zinc Acetate/Diphenhydramine 1 appln 05/12/25 22:30 05/12/25 23:43 Diphenhydramine 2%/Zinc 0.1% Cream 28.4gm Tube EXT 06/11/25 22:29 1 appln QID PRN Administration itchy skin NPO Date Last Intake of Fluids: 05/17/25 Time Last Intake of Fluids: 09:00 Last Intake of Fluids Comment: sip with meds Date Last Intake of Solids: 05/16/25 Time Last Intake of Solids: 13:00 Past Medical History Medical History Gastrostomy tube in place Anxiety Gastrointestinal dysmotility Reactive hypoglycemia dexcom present to left arm Anemia Neuropathy legs Gastroparesis History of COVID-19 02/2022, not hospitalized 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 Jejunostomy tube present placed October 2020 Past Family History Family History Other Adopted Past Surgical History Surgical History S/P gastrostomy History of removal of Port-a-Cath (05/21/24) Infusaport Removal - Left side(Left) - Alton Garcia DO, FACS History of myringotomy History of surgery (06/24/21) Removal of Right Tunneled Central Line in Internal Jugular Catheter H/O wisdom tooth extraction H/O wrist surgery right S/P knee surgery Left Social History Smoking Status: Never smoker Do You Dip or Chew Tobacco: No Hx Alcohol Use: No Alcohol type: hard liquor alcohol intake frequency: holidays/special occasions only Hx Substance Use: No substance use type: does not use Physical Exam Vital Signs Last Vital Signs Temp 36.6 C 05/17/25 10:36 Pulse 95 H 05/17/25 10:36 Resp 16 05/17/25 10:36 BP 109/74 05/17/25 10:36 Pulse Ox 98 05/17/25 10:36 O2 Del Method Room Air 05/17/25 10:36 O2 Flow Rate 3 05/11/25 10:30 Testing Laboratory Results 05/17/25 07:36 05/17/25 07:36 Urine Color Yellow 05/06/25 18:15 Urine Appearance Clear (Clear) 05/06/25 18:15 Urine pH 6.5 (4.5-7.5) 05/06/25 18:15 Ur Specific [place] 1.009 (1.000-1.030) 05/06/25 18:15 Urine Protein Negative (Negative) 05/06/25 18:15 Urine Glucose (UA) Negative (Negative) 05/06/25 18:15 Urine Ketones 1+ (Negative) H 05/06/25 18:15 Urine Nitrite Negative (Negative) 05/06/25 18:15 Ur Leukocyte Esterase Negative (Negative) 05/06/25 18:15 Urine WBC (Auto) 0-5 /hpf (0-5) 05/06/25 18:15 Urine RBC (Auto) 6-10 /hpf (0-2) H 05/06/25 18:15 U Hyaline Cast (Auto) 0-2 /lpf (0-2) 05/06/25 18:15 U Epithel Cells (Auto) 0-2 /hpf (0-2) 05/06/25 18:15 Urine Bacteria (Auto) None Seen (None Seen) 05/06/25 18:15 05/10/25 11:04 Aerobic Blood Culture - Final Blood Sarah glabrata Anaerobic Blood Culture - Final No growth in Anaerobic bottle after 5 days. 05/06/25 07:01 Aerobic Blood Culture - Final Blood Corynebacterium amycolatum Anaerobic Blood Culture - Final No growth in Anaerobic bottle after 5 days. 05/11/25 10:13 Fungal Smear - Final Chest Fungal Culture - Preliminary No yeast or fungus isolated - Report 1, Additional Report to Follow. 05/10/25 05:26 Aerobic Blood Culture - Final Blood No growth in Aerobic bottle after 5 days. Anaerobic Blood Culture - Final 05/10/25 05:33 Aerobic Blood Culture - Final Blood No growth in Aerobic bottle after 5 days. Anaerobic Blood Culture - Final No growth in Anaerobic bottle after 5 days. 05/06/25 09:36 Fungal Smear - Final Blood Fungal Culture - Preliminary Sarah tropicalis 05/12/25 09:56 Aerobic Blood Culture - Preliminary Blood No growth in Aerobic bottle after 48 hours. Anaerobic Blood Culture - Preliminary No growth in Anaerobic bottle after 48 hours. 05/12/25 09:51 Aerobic Blood Culture - Preliminary Blood No growth in Aerobic bottle after 48 hours. Anaerobic Blood Culture - Preliminary No growth in Anaerobic bottle after 48 hours. 05/11/25 10:13 Catheter Tip Culture - Final Ct,Central Venous Pressure Brigida Enterobacter cloacae complex Klebsiella oxytoc/[place] ornith 05/08/25 07:52 Aerobic Blood Culture - Final Blood No growth in Aerobic bottle after 5 days. Anaerobic Blood Culture - Final No growth in Anaerobic bottle after 5 days. 05/08/25 07:48 Aerobic Blood Culture - Final Blood No growth in Aerobic bottle after 5 days. Anaerobic Blood Culture - Final No growth in Anaerobic bottle after 5 days. 05/10/25 11:14 Aerobic Blood Culture - Preliminary Blood Enterobacter cloacae complex Klebsiella oxytoc/[place] ornith Escherichia coli Sarah tropicalis Anaerobic Blood Culture - Preliminary Enterobacter cloacae complex Klebsiella oxytoc/Pepe ornith 05/06/25 07:48 Aerobic Blood Culture - Preliminary Blood Streptococcus mitis/oralis grp Staphylococcus epidermidis Sarah glabrata Anaerobic Blood Culture - Preliminary Streptococcus mitis/oralis Staphylococcus epidermidis Sarah glabrata 05/17/25 04:24 POC Glucose 112 H
[2025-05-17] MEDS ORDERED: PROMETHAZINE HCL 6.25 MG in SODIUM CHLORIDE 0.9% 50 ML IV PRN (11:36)
[2025-05-17] MEDS ORDERED: ATROPINE SULFATE 0.1 MG/ML 10ML SYR IV PRN ×2 (11:36→13:34)
[2025-05-17] MEDS ORDERED: ONDANSETRON INJ 2 MG/ML 2 ML VIAL IV PRN ×2 (11:36→13:35)
[2025-05-17] MEDS: LIDOCAINE 1% LOCAL 20 ML VIAL ONE (12:42)
[2025-05-17] MEDS: HEPARIN 100 UNIT/ML 5ML FLUSH ONE (12:43)
--- NOTE | 2025-05-17 12:50 | Post Operative Brief Note ---
Immediate Post Op Note Date of Surgery May 17, 2025 Pre & Post Diagnosis Operation Date: 05/17/25 13:00 Pre-Op Diagnosis: Central Line-Associated Bloodstream Infection Post-Op Diagnosis: Central Line-Associated Bloodstream Infection I identified the patient and participated in the time-out.: Yes Procedure Operation Date: 05/17/25 13:00 Actual Procedures p Chao Catheter Revision(Right) - Ismael Espana MD Surgeon Ismael Espana MD [employer] Humera Whitman PA-C Estimated Blood Loss 5 Findings Consistent with Post-Op Diagnosis Specimens line tip for culture Anesthesia Type MAC Complications none Disposition Accompanied Patient To Recovery: Yes Disposition: Recovery Room
--- NOTE | 2025-05-17 13:03 | Operative Report ---
PG Post Operative Report Pre & Post Diagnosis Operation Date: 05/17/25 13:00 Pre-Op Diagnosis: Central Line-Associated Bloodstream Infection Post-Op Diagnosis: Central Line-Associated Bloodstream Infection I identified the patient and participated in the time-out.: Yes Procedure Operation Date: 05/17/25 13:00 Actual Procedures p Chao Catheter Revision(Right) - Imsael Espana MD Surgeon Ismael Espana MD Egg Breaking Machine Operator Humera Whitman PA-C Estimated Blood Loss 5 Findings Consistent with Post-Op Diagnosis Specimens Catheter tip for culture Anesthesia Type MAC Complications none Disposition Accompanied Patient To Recovery: Yes Disposition: Recovery Room Indications 29 yo female with need for usp IV access and no peripheral access. Has nontunneled right internal jugular vein central line in place. Conversion to tunneled central venous line requested. Risks/goals/alternatives discussed with patient who wishes to proceed. Description of Procedure A time out was performed and patient identified and procedure verified. Scheduled antibiotic dosing was maintained. Right neck/chest and central line prepped/draped in standard fashion. Wire inserted into central line and into right ventricle under fluoroscopic control. Catheter removed. Exit site expanded with scalpel and hemostat. 1% ildocaine local used. Counter incision made on right chest wall for exit of catheter. Tunneling device used to pass silicone Chao catheter from exit site on chest wall to line access site in the right neck. Catheter measured and trimmed to length. Over wire and under fluoroscopic control, peel-away sheath inserted. Dilator and wire removed and catheter inserted to SVC/RA junction under fluorscopic control. Peel away sheath removed. Cuff was 1cm under the skin. Both ports aspirated/flushed easily. Line sutured to skin. Puncture site in neck closed with Monocryl and skin glue. Patient taken to recovery room in stable condition having tolerated procedure well without immediate complication. I attest to the content of the Intraoperative Record and any orders documented therein. Any exceptions are noted below.
[2025-05-17] MEDS: HYDROmorphone INJ 2 MG/ML SYR/VIAL IV PRN (13:36)
[2025-05-17] MEDS: HYDROmorphone INJ 2 MG/ML SYR/VIAL ONE (13:39)
[2025-05-17] MEDS ORDERED: Nursing to Pharmacy Communication SCH (13:45)
[2025-05-17 14:24] VITALS: RESP 16
--- NOTE | 2025-05-17 14:27 | Hospitalist Progress Note ---
Date of Service May 17, 2025 Assessment & Plan (1) Sepsis: (2) History of central line-associated bloodstream infection (CLABSI): Plan: Patient presenting from home for evaluation of nausea, vomiting, chills, rigors. Patient recently admitted to [facility] 04/09 through 04/19 for E. coli bacteremia. right-sided Chao catheter placed on 04/18. Patient was discharged on IV ceftriaxone and completed 14 days of therapy. Chao catheter became nonfunctioning and patient underwent replacement on 05/02/2025. Bloodstream infection due to central venous catheter, POA Sepsis POA Fungemia ( Sarah Glabrata) H/O of GI dysmotility on TPN via Chao catheter; history of multiple catheter related infection. Recent infection on 04/09 with E. coli bacteremia. She presents with fever, chills, nausea and vomiting -- Blood cultures from 05/06/25: Grew Streptococcus mitis/oralis group, Staph epidermidis, Sarah glabrata, Sarah tropicalis -- Blood cultures from 05/10/2025 growing Enterobacter cloacae complex, Klebsiella, Enterobacter -- Chao catheter tip cultures--preliminary culture grew Enterobacter cloacae complex, Klebsiella --Central line catheter tip culture pending -- Repeat blood cultures 05/12/2025: Negative to date -- Repeat fungal cultures: No growth to date --S/P Chao's catheter removed on 05/11/2025 --S/P Chao's catheter placement on 05/17/2025 --ECHO: EF 60 to 65%. Mild mitral regurgitation. Mild mitral valve prolapse. Prolapse of the anterior mitral leaflet. No regional wall motion abnormality. --IV vancomycin,, Zosyn>> transition to IV vancomycin, meropenem>> transition to IV vancomycin, ertapenem --Continue Caspofungin -- Appreciate ID input --Discussed with infectious disease on 05/16/2025. Need to continue IV vancomycin, function, ertapenem until 05/25/2025. Appreciate vascular surgery help Patient needs follow-up with ophthalmology as outpatient to rule out endophthalmitis Continue parenteral nutrition Plan to discharge once IV antibiotics arranged Case management to help with discharge planning Constipation Possible Ileus Hypokalemia, hypomagnesemia --CT abdomen and pelvis showed mildly dilated small bowel loops with the air- fluid level General surgery was consulted; no acute intervention Continue diet as tolerated Replete electrolytes as needed Continue bowel regimen (3) Transaminitis: Plan: Mild, may be due to sepsis AST 76, ALT 55, alk phos 115, T. bili 0.1 Monitor LFTs (4) On total parenteral nutrition (TPN): (5) Gastrointestinal dysmotility: Plan: Patient was recently evaluated at [facility] and started on prucalopride (has not started yet) and erythromycin. Plan to follow up after discharge. Discussed with Dr. Pablo Camp endoscopy registered nurse at [facility]: Consideration for J-tube. Has follow-up appointment on May 27, 2025 at 2:20 PM. 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 SQ CODE STATUS Full code Admission and Anticipated Discharge Date Admission Date: May 06, 2025 Subjective Patient is seen and examined after having Chao's catheter today States having nausea Also reports some pain at the catheter site No other complaints today Review of Systems Review of Systems: All systems reviewed & are unremarkable except as noted in Subjective Physical Exam Physical Exam: Physical Exam: Vitals signs as noted above General Appearance:Thin, frail, no apparent distress Head: normocephalic, Atraumatic Eyes: normal inspection, EOMI Neck: supple, Trachea midline Respiratory/Chest: Normal breath sounds, CTA, No accessory muscle use Cardiovascular: S1, S2, No murmur Abdomen/GI:Soft, Non tender, Bowel sounds present Extremities/Musculoskeletal:normal inspection, no edema Neurologic/Psych:AAOX3, grossly no focal neurological deficits Skin: normal color, warm Results & Data Results & Data Vital Signs (Past 12 Hours) Vital Signs Temp Pulse Pulse Resp BP BP Pulse Ox 05/17/25 14:20 37 C 90 16 104/69 98 05/17/25 14:10 80 12 90/62 L 92 05/17/25 14:00 78 12 99/63 L 95 05/17/25 13:50 77 12 98/62 L 95 05/17/25 13:40 84 12 101/69 97 05/17/25 13:30 74 12 93/63 L 98 05/17/25 13:20 74 12 97/64 L 97 05/17/25 13:10 75 12 96/63 L 98 05/17/25 13:00 73 12 95/64 L 100 05/17/25 12:53 36.1 C L 80 12 97/71 L 97 05/17/25 10:36 36.6 C 95 H 16 109/74 98 05/17/25 07:24 36.6 C 77 16 99/65 L 96 O2 Del Method O2 Flow Rate 05/17/25 14:20 Room Air 05/17/25 14:10 Room Air 05/17/25 14:00 Room Air 05/17/25 13:50 Room Air 05/17/25 13:40 Room Air 05/17/25 13:30 Room Air 05/17/25 13:20 Room Air 05/17/25 13:10 Room Air 05/17/25 13:00 Nasal Cannula 3 05/17/25 12:53 Nasal Cannula 3 05/17/25 10:36 Room Air 05/17/25 07:24 Room Air Laboratory Results Short CBC 05/17/25 Range/Units 07:36 WBC 6.04 (4.8-10.8) K/ul Hgb 9.6 L (12.0-16.0) g/dl Hct 30.4 L (37.0-47.0) % Plt Count 515 H (130-400) K/uL BMP 05/17/25 07:36 Sodium 138 Potassium 4.1 Chloride 105 Carbon Dioxide 28 BUN 19 Creatinine 0.61 Glucose 93 Calcium 9.3
--- NOTE | 2025-05-17 14:50 | XRay Report ---
XR chest 1V portable CLINICAL HISTORY: new tunneled central line placement COMPARISON STUDY: 05/15/2025 FINDINGS: Right central catheter tip is in the region of the SVC brachiocephalic junction. No pneumot horax. No consolidation or pleural effusion. IMPRESSION: No pneumothorax. ACT 112: Negative or not required by law. Electronically signed by: Alton Paula M.D. 05/17/2025 2:48 PM
[2025-05-17] MEDS: AA 8%/D14W 1L 1,032 ML in Central TPN bag 0 ML IV SCH (15:44)
[2025-05-17] MEDS: CLINOLIPID 20% IV FAT EMULSION 250 ML IV SCH (15:44)
[2025-05-17] MEDS: VANCOMYCIN LEVEL ONE (15:50)
[2025-05-17] MEDS: LORazepam Inj 0.25 MG in SYRINGE 0.125 ML IV ONE (17:09)
[2025-05-17] MEDS: HYDROmorphone INJ 0.5 MG/0.5 ML SYR IV PRN (17:37)
[2025-05-18] MEDS: STOP CLINOLIPID SCH (04:11)
[2025-05-18 08:31] LABS: Anion Gap 5.0 (3-11); Blood Urea Nitrogen 15.0 mg/dl (6-23); Calcium 9.3 mg/dl (8.6-10.3); Carbon Dioxide 30.0 mmol/L (21-32); Chloride 103.0 mmol/L (98-107); Creatinine Clr Calc Pharmacy 126.9 ml/min; Glucose 95.0 mg/dl (70-99(Fasting)); Magnesium 2.0 mg/dl (1.7-2.4); Potassium 4.0 mmol/L (3.5-5.1); Sodium 138.0 mmol/L (136-145)
--- NOTE | 2025-05-18 09:08 | Pharmacy Report ---
Pharmacy PK ABX Note - Date of Service May 18, 2025 - Assessment and Plan Assessment 05/18: * Vancomycin level drawn 05/17 @ 1552 resulted at 12.3 mcg/mL with predicted AUC/BRITT of ~521. * Patient remains on ertapenem + caspofungin. Repeat BC drawn 05/12 remain no growth. * New chao catheter placed on 05/17. 05/13: * Vancomycin level came back at ~14.4 mcg/ml today, current dosing associated with goal AUC/BRITT therefore will continue current regimen. Awaiting finalized cultures. Preliminary repeat bc no growth thus far. Chao catheter removed 05/11 05/10: * Vancomycin level came back at ~13.9 mcg/ml - current dosing associated with goal AUC/BRITT therefore will continue current regimen 05/08: Day #3 vancomycin, zosyn and caspofungin for bacteremia. 05/06 Blood cultures (CVAD) (+) Strep mitis in 2/2, Staph epidermidis in 2/2 and Sarah glabrata in 2/2. Peripheral culture NGTD. SCr 0.62mg/dL today. ID consulted. 05/07: 29 year old F receiving vancomycin and cefepime empirically in setting of sepsis. History of CLABSI and recent admission with Chao replacement. On chronic TPN. Blood cultures pending, MRSA nasal (-). SCr ~ doubled from baseline (0.83, baseline ~ 0.45-0.5mg/dL). Day # 1 of antimicrobial therapy. Plan Vancomycin * Continue current regimen: 750mg IV q8h Pharmacy will continue to follow and will adjust dose/frequency as necessary. Thank you.
--- NOTE | 2025-05-18 13:28 | Hospitalist Progress Note ---
Date of Service May 18, 2025 Assessment & Plan (1) Sepsis: (2) History of central line-associated bloodstream infection (CLABSI): Plan: Patient presenting from home for evaluation of nausea, vomiting, chills, rigors. Patient recently admitted to [facility] 04/09 through 04/19 for E. coli bacteremia. right-sided Chao catheter placed on 04/18. Patient was discharged on IV ceftriaxone and completed 14 days of therapy. Chao catheter became nonfunctioning and patient underwent replacement on 05/02/2025. Bloodstream infection due to central venous catheter, POA Sepsis POA Fungemia ( Sarah Glabrata) H/O of GI dysmotility on TPN via Chao catheter; history of multiple catheter related infection. Recent infection on 04/09 with E. coli bacteremia. She presents with fever, chills, nausea and vomiting -- Blood cultures from 05/06/25: Grew Streptococcus mitis/oralis group, Staph epidermidis, Sarah glabrata, Sarah tropicalis -- Blood cultures from 05/10/2025 growing Enterobacter cloacae complex, Klebsiella, Enterobacter -- Chao catheter tip cultures--preliminary culture grew Enterobacter cloacae complex, Klebsiella --Central line catheter tip culture pending -- Repeat blood cultures 05/12/2025: Negative to date -- Repeat fungal cultures: No growth to date --S/P Chao's catheter removed on 05/11/2025 --S/P Chao's catheter placement on 05/17/2025 As per infectious disease- Need to continue IV vancomycin, Caspofungin, ertapenem until 05/25/2025. Patient needs follow-up with ophthalmology as outpatient to rule out endophthalmitis Continue parenteral nutrition Plan to discharge once IV antibiotics arranged Case management to help with discharge planning Constipation Possible Ileus Hypokalemia, hypomagnesemia --CT abdomen and pelvis showed mildly dilated small bowel loops with the air- fluid level General surgery was consulted; no acute intervention Continue diet as tolerated Replete electrolytes as needed Continue bowel regimen (3) Transaminitis: Plan: Mild, may be due to sepsis AST 76, ALT 55, alk phos 115, T. bili 0.1 Monitor LFTs (4) On total parenteral nutrition (TPN): (5) Gastrointestinal dysmotility: Plan: Patient was recently evaluated at [place] and started on prucalopride (has not started yet) and erythromycin. Plan to follow up after discharge. Discussed with Dr. Pablo Camp tong setter at [facility]: Consideration for J-tube. Has follow-up appointment on May 27, 2025 at 2:20 PM. 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 She also reports pain at the Chao insertion site. No fever or chills Review of Systems Review of Systems: All systems reviewed & are unremarkable except as noted in Subjective Physical Exam Physical Exam: Constitutional: Awake, comfortable. Not in distress. Respiratory: Bilateral vesicular breath sound Cardiovascular: RRR, no murmur, no edema Vessels: no JVD or carotid bruit Chest: Chao catheter in place; no surrounding erythema/swelling Abdomen: Soft, hypoactive bowel sound Musculoskeletal: no cyanosis or clubbing, extremities motor strength 5/5 Skin: no rashes, warm and dry normal turgor Neurologic: PERRL, EOMI, accommodation nl, no face palsy, no dysarthria CN's II- XI intact bilaterally and moves all extremities Psychiatric: A+Ox3, euthymic affect Results & Data Results & Data Vital Signs (Past 12 Hours) Vital Signs Temp Pulse Resp BP Pulse Ox O2 Del Method 05/18/25 07:35 36.9 C 79 16 96/64 L 98 Room Air 05/18/25 05:28 36.8 C 85 16 101/67 98 Room Air 05/18/25 01:52 36.8 C 88 16 98/66 L 99 Room Air
--- NOTE | 2025-05-18 14:11 | Pharmacy Report ---
Pharmacy PN Follow-up Note - Date of Service May 18, 2025 - Subjective Patient is currently on day # 4 of TPN. - Objective Height & Weight (Last Documented) Height 5 ft 3 in Weight 50.4 kg Diet Order(s) 05/17/25 Lunch Diet Intake & Ouput (24hrs) 05/17/25 05/18/25 05/19/25 06:59 06:59 06:59 Intake Total 2621.485 / 2621.485 3288 / 3288 577 / 577 Output Total Balance 2621.485 / 2621.485 3283 / 3283 577 / 577 Selected Laboratory Results 05/18/25 07:38 Sodium 138 Potassium 4.0 Chloride 103 Carbon Dioxide 30 Anion Gap 5 BUN 15 Creatinine 0.53 L BUN/Creatinine Ratio 28.3 H Glucose 95 Calcium 9.3 Phosphorus 2.3 L Magnesium 2.0 - Assessment & Plan Assessment: 05/18 * New puente catheter placed on 05/17 * Day #3 of TPN - macronutrients have been advanced to goal * Electrolytes WNL with the exception of phosphate (2.4). Will increase amount in today's bag. * Will also increase magnesium given slight trend down 05/16 * Discussed with provider and IV team unable to replace peripheral site lost yesterday d/t poor access. Provider okay to utilize central line for TPN moving forward. 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 Plan to switch to TPN today. Patient admitted >10 days, only received parenteral nutrition x 2 days during that time. Will be conservative with Kcals and slowly titrate up regimen for today. Dietary recommending lipids 2x/week - could consider potentially adding in tomorrow as long as labs stable 05/15 * PN previously being held since 05/11 while awaiting results of repeat blood cultures, which currently show no growth at 48 hours. PPN to be restarted today. * Patient lost all peripheral IV access earlier today. Right IJ central line placed this afternoon. * Macronutrient recs provided by nutrition, appreciated (anticipating lipids twice weekly on Friday and ) * Labs largely stable, calcium of 10.3 mg/dL today (will hold calcium today and recheck tomorrow) * Continues on broad spectrum antimicrobial regimen for polymicrobial CLABSI Plan: * Macronutrients: * Amino Acids: 77 grams/day * Dextrose: 134 grams/day * Lipids: 50 grams on Mo and Th * Micronutrients: * Sodium phosphate: 15 mMol/day * Sodium chloride: 40 mEq/day * Sodium acetate: 30 mEq/day * Potassium acetate: 50 mEq/day * Magnesium sulfate: 8.12 mEq/day * Multivitamins: 10 mL/day * Trace elements: 1 mL/day * Folic Acid: 1 mg/day * Total volume of 1034 mL will be infused over 24 hours and will provide 764 kcal/day * TPN on Mon and [place] contains 50 g of lipids for total of 1264 kcal/day * Labs will be ordered per PN protocol. * Pharmacy will follow and adjust PN orders on a daily basis. Thank you!
[2025-05-18] MEDS: HYDROmorphone INJ 0.5 MG/0.5 ML SYR IV PRN (14:27)
--- NOTE | 2025-05-18 14:49 | Vascular Surgery Progress Note ---
Date of Service May 18, 2025 Assessment & Plan (1) CLABSI (central line-associated bloodstream infection): Plan: Continues with treatment for polymicrobial blood stream infection, to include bart, along with positive culture from tip of Chao which was removed 05/11 and has negative blood cultures since 05/12 She is now PPD 1 s/p right sided 7F double lumen 22cm silicone Chao placement in the OR, locked with heparin, no pneumothorax post procedure, and has been infusing well. OK to lock with either heparin or sodium citrate as outpatient. Dressing changes as previously done. Vascular surgery available with any questions or concerns about line. Continue IV antibiotics per ID and primary team. Admission and Anticipated Discharge Date Admission Date: May 06, 2025 Subjective She is PPD 1 s/p right sided 7F doulbe lumen 22cm silicone Chao placement. Her line has been infusing well. She has some pain/tenderness along the right upper chest and neck related to the tunneling, but this is improving. No fevers or chills. Some nausea possibly related to antibiotic. Physical Exam Physical Exam: Thin, in no distress, sitting up in bed, appears comfortable right Chao line in place and infusing without difficulty Results & Data Vital Signs (Past 12 Hours) Vital Signs Temp Pulse Resp BP Pulse Ox O2 Del Method 05/18/25 14:38 37.0 C 96 H 16 111/74 98 Room Air 05/18/25 07:35 36.9 C 79 16 96/64 L 98 Room Air 05/18/25 05:28 36.8 C 85 16 101/67 98 Room Air Laboratory Results 05/17/25 12:22 Catheter Tip Culture - Preliminary Ct,Central Venous Pressure Brigida No growth to date. 05/12/25 09:56 Aerobic Blood Culture - Final Blood No growth in Aerobic bottle after 5 days. Anaerobic Blood Culture - Final No growth in Anaerobic bottle after 5 days. 05/12/25 09:51 Aerobic Blood Culture - Final Blood No growth in Aerobic bottle after 5 days. Anaerobic Blood Culture - Final No growth in Anaerobic bottle after 5 days. 05/06/25 07:48 Aerobic Blood Culture - Final Blood Streptococcus mitis/oralis grp Staphylococcus epidermidis Bart glabrata Anaerobic Blood Culture - Final Streptococcus mitis/oralis Staphylococcus epidermidis Bart glabrata 05/18/25 05/18/25 05/18/25 14:19 07:38 07:36 Sodium 138 Potassium 4.0 Chloride 103 Carbon Dioxide 30 Anion Gap 5 BUN 15 Creatinine 0.53 L Est Cr Clr Drug Dosing 126.9 eGFR 129.92 BUN/Creatinine Ratio 28.3 H Glucose 95 POC Glucose 109 H 102 H Calcium 9.3 Phosphorus 2.3 L Magnesium 2.0 Random Vancomycin 05/18/25 05/17/25 05/17/25 01:22 20:10 15:52 Sodium Potassium Chloride Carbon Dioxide Anion Gap BUN Creatinine Est Cr Clr Drug Dosing eGFR BUN/Creatinine Ratio Glucose POC Glucose 127 H 139 H Calcium Phosphorus Magnesium Random Vancomycin 12.3 05/17/25 15:49 Sodium Potassium Chloride Carbon Dioxide Anion Gap BUN Creatinine Est Cr Clr Drug Dosing eGFR BUN/Creatinine Ratio Glucose POC Glucose 113 H Calcium Phosphorus Magnesium Random Vancomycin Diagnostic Findings Chest X-Ray 05/17/25 12:58 XR chest 1V portable CLINICAL HISTORY: new tunneled central line placement COMPARISON STUDY: 05/15/2025 FINDINGS: Right central catheter tip is in the region of the SVC brachiocephalic junction. No pneumothorax. No consolidation or pleural effusion. IMPRESSION: No pneumothorax. ACT 112: Negative or not required by law. Electronically signed by: Alton Paula M.D. 05/17/2025 2:48 PM Medications Administered Home Medications Medication Instructions Recorded Confirmed Last Taken baclofen 10 mg tablet 10 mg PO BID 04/09/25 05/06/25 05/01/25 21:00 cholecalciferol (vitamin D3) 1,250 1,250 mcg PO WK 04/09/25 05/06/25 04/27/25 09:00 mcg (50,000 unit) tablet cyanocobalamin (vitamin B-12) 1,000 mcg IM MONTHLY 04/09/25 05/06/25 Unknown 1,000 mcg/mL injection solution duloxetine 20 mg capsule,delayed 20 mg PO DAILY 04/09/25 05/06/25 05/01/25 21:00 release famotidine 20 mg tablet 20 mg PO BID 04/09/25 05/06/25 05/01/25 21:00 linaclotide 145 mcg capsule 145 mcg PO DAILY PRN Constipation 04/09/25 05/06/25 Unknown loratadine 10 mg tablet 10 mg PO DAILY 04/09/25 05/06/25 05/01/25 21:00 montelukast 10 mg tablet 10 mg PO HS 04/09/25 05/06/25 05/01/25 21:00 olanzapine 2.5 mg tablet 2.5 mg PO HS 04/09/25 05/06/25 05/01/25 21:00 ondansetron 8 mg disintegrating 8 mg PO Q8H PRN Nausea And Vomiting 04/09/25 05/06/25 05/01/25 21:00 tablet erythromycin ethylsuccinate 200 100 mg PO TID 05/06/25 05/06/25 Unknown mg/5 mL oral powder for suspension hydroxyzine HCl 50 mg tablet 50 mg PO QID PRN Anxiety 05/06/25 05/06/25 Unknown prucalopride 2 mg tablet 2 mg PO DAILY 05/06/25 05/06/25 Unknown Active Medications Generic Name Dose Route Start Last Admin Trade Name Freq PRN Reason Stop Dose Admin Baclofen 10 mg 05/06/25 21:00 05/18/25 09:26 Baclofen 10 Mg Tab PO 06/05/25 20:59 10 mg BID ZULY Administration Docusate Sodium 100 mg 05/15/25 21:00 05/18/25 09:21 Docusate Sodium 100 Mg Cap PO 06/14/25 20:59 Not Given BID ZULY Duloxetine HCl 20 mg 05/07/25 09:00 05/18/25 09:26 Duloxetine Hcl 20 Mg Cap PO 06/06/25 08:59 20 mg DAILY ZULY Administration Erythromycin Ethylsuccinate 100 mg 05/06/25 14:00 05/18/25 14:39 Erythromycin Ethylsucc Susp 200 Mg/5 Ml 100 Ml Btl PO 06/05/25 13:59 100 mg TID ZULY Administration Heparin Sodium (Porcine) 5,000 units 05/09/25 21:00 05/18/25 09:22 Heparin Sod 5,000 Unit/0.5 Ml Vial SQ 06/08/25 20:59 Not Given Q12 ZULY Hydromorphone HCl 0.5 mg 05/18/25 10:25 05/18/25 14:27 Hydromorphone Inj 0.5 Mg/0.5 Ml Syr IV 06/01/25 10:24 0.5 mg Q6H PRN Administration Severe Pain (Scale 7, 8, 9,10) Hydroxyzine HCl 50 mg 05/06/25 10:34 05/18/25 00:23 Hydroxyzine Hcl 25 Mg Tab PO 06/05/25 10:33 50 mg QID PRN Administration Anxiety Famotidine 20 mg in 5 mls @ 2.5 mls/min 05/06/25 11:45 05/18/25 11:55 Pepcid 20mg Iv Push IV 06/05/25 11:44 2.5 mls/min Q12H ZULY Administration Thiamine HCl 200 mg/ Sodium 52 mls @ 210 mls/hr 05/07/25 09:00 05/18/25 09:42 Chloride IV 06/06/25 08:59 Infused QAM ZULY Infusion Vancomycin HCl 750 mg/ Sodium 265 mls @ 200 mls/hr 05/07/25 12:00 05/18/25 14:19 Chloride IV 05/25/25 11:59 200 mls/hr Q8H ZULY Administration Caspofungin 50 mg/ Sodium 260 mls @ 250 mls/hr 05/09/25 09:00 05/18/25 10:47 Chloride IV 05/25/25 08:59 Infused Q24H ZULY Infusion Protocol Ertapenem 1,000 mg in 10 mls @ 2 mls/min 05/16/25 17:00 05/17/25 15:36 Invanz 1000mg IV 05/25/25 16:59 2 mls/min Q24H ZULY Administration Amino Acids/Dextrose 1,032 ml/ 1,032 mls @ 43 mls/hr 05/17/25 16:00 05/17/25 15:44 Nutrition (Parenteral) IV 05/18/25 15:59 43 mls/hr .Q24H ZULY Administration Protocol Loratadine 10 mg 05/07/25 09:00 05/18/25 09:26 Loratadine 10 Mg Tab PO 06/06/25 08:59 10 mg DAILY ZULY Administration Magnesium Chloride 64 mg 05/12/25 21:00 05/18/25 09:26 Magnesium Chloride W/Calcium 64mg Delayed Rel Tab PO 06/11/25 20:59 64 mg BID ZULY Administration Montelukast Sodium 10 mg 05/06/25 21:00 05/17/25 21:27 Montelukast Sodium 10 Mg Tablet PO 06/05/25 20:59 10 mg HS ZULY Administration Olanzapine 2.5 mg 05/06/25 21:00 05/17/25 21:27 Olanzapine 2.5 Mg Tab PO 06/05/25 20:59 2.5 mg HS ZULY Administration Ondansetron HCl 4 mg 05/06/25 10:34 05/18/25 13:44 Ondansetron Inj 2 Mg/Ml 2 Ml Vial IV 06/05/25 10:33 4 mg Q6H PRN Administration Nausea And Vomiting Oxycodone HCl 5 mg 05/15/25 15:08 05/15/25 15:55 Oxycodone Hcl Ir 5 Mg Tab (Immediate Release) PO 05/29/25 15:07 5 mg Q8H PRN Administration Pain Polyethylene Glycol 17 gm 05/15/25 16:15 05/18/25 09:21 Polyethylene (Miralax) 17 Gm Pack PO 06/14/25 16:14 Not Given DAILY ZULY Zinc Acetate/Diphenhydramine 1 appln 05/12/25 22:30 05/12/25 23:43 Diphenhydramine 2%/Zinc 0.1% Cream 28.4gm Tube EXT 06/11/25 22:29 1 appln QID PRN Administration itchy skin PG Care Time/CCT Total # of Minutes Spent Total Time Spent with Patient: Total time spent is greater than 50% in coordination of care (as documented) at patient's floor/unit and/or counseling patient: (1) CLABSI (central line-associated bloodstream infection) Encounter type: subsequent encounter Qualified Code(s): T80.211D - Bloodstream infection due to central venous catheter, subsequent encounter
[2025-05-19 07:33] LABS: Anion Gap 5.0 (3-11); Blood Urea Nitrogen 20.0 mg/dl (6-23); Calcium 9.2 mg/dl (8.6-10.3); Carbon Dioxide 29.0 mmol/L (21-32); Chloride 104.0 mmol/L (98-107); Creatinine Clr Calc Pharmacy 126.9 ml/min; Glucose 86.0 mg/dl (70-99(Fasting)); Magnesium 2.0 mg/dl (1.7-2.4); Potassium 4.0 mmol/L (3.5-5.1); Sodium 138.0 mmol/L (136-145)
--- NOTE | 2025-05-19 12:41 | Hospitalist Progress Note ---
Date of Service May 19, 2025 Assessment & Plan (1) Sepsis: (2) History of central line-associated bloodstream infection (CLABSI): Plan: Patient presenting from home for evaluation of nausea, vomiting, chills, rigors. Patient recently admitted to [facility] 04/09 through 04/19 for E. coli bacteremia. right-sided Chao catheter placed on 04/18. Patient was discharged on IV ceftriaxone and completed 14 days of therapy. Chao catheter became nonfunctioning and patient underwent replacement on 05/02/2025. Bloodstream infection due to central venous catheter, POA Sepsis POA Fungemia ( Sarah Glabrata) H/O of GI dysmotility on TPN via Chao catheter; history of multiple catheter related infection. Recent infection on 04/09 with E. coli bacteremia. She presents with fever, chills, nausea and vomiting -- Blood cultures from 05/06/25: Grew Streptococcus mitis/oralis group, Staph epidermidis, Sarah glabrata, Sarah tropicalis -- Blood cultures from 05/10/2025 growing Enterobacter cloacae complex, Klebsiella, Enterobacter -- Chao catheter tip cultures--preliminary culture grew Enterobacter cloacae complex, Klebsiella --Central line catheter tip culture pending -- Repeat blood cultures 05/12/2025: Negative to date -- Repeat fungal cultures: No growth to date --S/P Chao's catheter removed on 05/11/2025 --S/P Chao's catheter placement on 05/17/2025 As per infectious disease- Need to continue IV vancomycin, Caspofungin, ertapenem until 05/25/2025. Prescription provided to case management Patient needs follow-up with ophthalmology as outpatient to rule out endophthalmitis Continue parenteral nutrition Plan to discharge once IV antibiotics arranged Case management to help with discharge planning Constipation Possible Ileus Hypokalemia, hypomagnesemia --CT abdomen and pelvis showed mildly dilated small bowel loops with the air- fluid level General surgery was consulted; no acute intervention Continue diet as tolerated Replete electrolytes as needed Continue bowel regimen (3) Transaminitis: Plan: Mild, may be due to sepsis AST 76, ALT 55, alk phos 115, T. bili 0.1 Monitor LFTs (4) On total parenteral nutrition (TPN): (5) Gastrointestinal dysmotility: Plan: Patient was recently evaluated at [place] and started on prucalopride (has not started yet) and erythromycin. Plan to follow up after discharge. Discussed with Dr. Pablo Camp screwmaker automatic at [facility]: Consideration for J-tube. Has follow-up appointment on May 27, 2025 at 2:20 PM. 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 She reports feeling slightly better compared to previous day. Pain is well-controlled at this time. Continues to have nausea. Review of Systems Review of Systems: All systems reviewed & are unremarkable except as noted in Subjective Physical Exam Physical Exam: Constitutional: Awake, comfortable. Not in distress. Respiratory: Bilateral vesicular breath sound Cardiovascular: RRR, no murmur, no edema Vessels: no JVD or carotid bruit Chest: Chao catheter in place; no surrounding erythema/swelling Abdomen: Soft, hypoactive bowel sound Musculoskeletal: no cyanosis or clubbing, extremities motor strength 5/5 Skin: no rashes, warm and dry normal turgor Neurologic: PERRL, EOMI, accommodation nl, no face palsy, no dysarthria CN's II- XI intact bilaterally and moves all extremities Psychiatric: A+Ox3, euthymic affect Results & Data Results & Data Vital Signs (Past 12 Hours) Vital Signs Temp Pulse Resp BP Pulse Ox O2 Del Method 05/19/25 07:34 36.8 C 75 16 91/57 L 96 Room Air
[2025-05-19] MEDS: LORazepam Inj 0.5 MG in SYRINGE 0.25 ML IV STA (17:57)
[2025-05-19] MEDS: LORazepam 0.5 MG TAB PO STA (21:33)
[2025-05-19 23:09] VITALS: O2SAT 97
[2025-05-20 06:22] LABS: Creatinine Clr Calc Pharmacy 122.2 ml/min; Potassium 4.1 mmol/L (3.5-5.1); Triglycerides 176.0 mg/dl (0-150)
[2025-05-20 06:30] LABS: Anion Gap 9.0 (3-11); Blood Urea Nitrogen 20.0 mg/dl (6-23); Calcium 9.5 mg/dl (8.6-10.3); Carbon Dioxide 26.0 mmol/L (21-32); Chloride 102.0 mmol/L (98-107); Glucose 87.0 mg/dl (70-99(Fasting)); Sodium 137.0 mmol/L (136-145)
[2025-05-20 07:32] VITALS: BP 99/64; PULSE 92; TEMP 98.4
[2025-05-20 09:12] LABS: Magnesium 2.2 mg/dl (1.7-2.4)
--- NOTE | 2025-05-20 10:28 | Discharge Summary ---
Date of Service May 20, 2025 Admission HPI Per Admitting Provider 29-year-old female with PMH Jaqui-Danlos syndrome, POTS, chronic pain syndrome, TPN dependence, chronic GI dysmotility currently being followed at [place], recurrent central line infections and bacteremia, and other problems listed below who presents to the ED for evaluation of nausea, vomiting, chills. Patient recently admitted to [facility] 04/09 through 04/19 for E. coli bacteremia. right-sided Chao catheter placed on 04/18. Patient was discharged on IV ceftriaxone and completed 14 days of therapy. Patient was evaluated at [place] and started on prucalopride (has not started yet) an erythromycin. Chao cat heter became nonfunctioning and patient underwent replacement on 05/02/2025. Patient reports the following day she developed nausea and vomiting which she attributed to the fentanyl she received during the procedure. Reports she continued to feel poorly and this morning she had rigors, chills, low-grade fever. She then presented to the ED for further evaluation. Patient denies chest pain, palpitations, shortness of breath, cough and sputum production. No urinary symptoms. In the ED, patient had low-grade temp at 37.6, tachycardia, no leukocytosis. Full RVP negative. Patient was given IV cefepime, IV lorazepam, IV Zofran, IVF, IV Vanco. Shortly after my exam patient developed fever 39.3. Admission Exam Per Admitting Provider Constitutional: + thin; no acute distress Respiratory: normal respiratory effort, lungs clear to auscultation Cardiovascular: Rate/Rhythm: regular rhythm and + tachycardic Vessels: normal peripheral pulses Extremities: no edema Gastrointestinal (Abdomen): Percussion/Palpation: abdomen soft; abdomen nontender Skin: no rashes, warm and dry Neurologic: no focal motor deficits Psychiatric: A+Ox3, euthymic affect Principal Diagnosis Bloodstream infection due to central venous catheter, POA Sepsis POA Fungemia ( Sarah Glabrata) H/O of GI dysmotility on TPN via Chao catheter; history of multiple catheter related infection. Recent infection on 04/09 with E. coli bacteremia. Discharge Exam Constitutional: Awake, comfortable. Not in distress. Respiratory: Bilateral vesicular breath sound Cardiovascular: RRR, no murmur, no edema Vessels: no JVD or carotid bruit Chest: Chao catheter in place; no surrounding erythema/swelling Abdomen: Soft, hypoactive bowel sound Musculoskeletal: no cyanosis or clubbing, extremities motor strength 5/5 Skin: no rashes, warm and dry normal turgor Neurologic: PERRL, EOMI, accommodation nl, no face palsy, no dysarthria CN's II- XI intact bilaterally and moves all extremities Psychiatric: A+Ox3, euthymic affect Discharge Data Allergies Allergy/AdvReac Type Severity Reaction Status Date / Time diphenhydramine Allergy Severe Urticaria, Verified 05/04/25 14:05 [From Benadryl] severe anxiety, jittery prochlorperazine Allergy Severe Anaphylaxis Verified 05/04/25 14:05 [From Compazine] adhesive Allergy Intermediate Redness, Verified 05/04/25 14:05 swelling gluten Allergy Intermediate Hives, GI Verified 05/04/25 14:05 upset peanut Allergy Intermediate Itchy Verified 05/04/25 14:05 throat tree nut Allergy Intermediate Itchy Verified 05/04/25 14:05 throat pollen extracts Allergy Mild Itchy Verified 05/04/25 14:05 eyes, sneezing, congestion chlorhexidine Allergy Unknown Unknown Verified 05/04/25 14:05 iron [From Venofer] AdvReac Severe Abdominal Verified 05/04/25 14:05 Pain fentanyl AdvReac Intermediate nausea and Verified 05/06/25 10:10 vomiting Latex, Natural Rubber AdvReac Intermediate Redness, Verified 05/04/25 14:05 itchy polyurethane Allergy Hives Uncoded 05/04/25 14:05 polyurethane power port Allergy Itching Uncoded 05/04/25 14:05 Consultations 05/06/25 08:32 ED Decision to Admit Stat 05/06/25 14:03 Consult General Surgery Routine 05/07/25 07:18 Consult Vascular Surgery Routine 05/07/25 10:56 Consult Infectious Diseases Routine Procedures Performed Operation Date: 05/17/25 13:00 Actual Procedures p Chao Catheter Revision(Right) - Ismael Espana MD Ordered Studies 05/06/25 10:34 CT Abdomen and Pelvis [CT abd pelvis wo con] Stat 05/17/25 07:24 EV cvc insrt tunnel wo prt/perinatal specialist Routine Hospital Course (1) Sepsis: (2) History of central line-associated bloodstream infection (CLABSI): Patient presenting from home for evaluation of nausea, vomiting, chills, rigors. Patient recently admitted to [facility] 04/09 through 04/19 for E. coli bacteremia. right-sided Chao catheter placed on 04/18. Patient was discharged on IV ceftriaxone and completed 14 days of therapy. Chao catheter became nonfunctioning and patient underwent replacement on 05/02/2025. Bloodstream infection due to central venous catheter, POA Sepsis POA Fungemia ( Sarah Glabrata) H/O of GI dysmotility on TPN via Chao catheter; history of multiple catheter related infection. Recent infection on 04/09 with E. coli bacteremia. She presents with fever, chills, nausea and vomiting -- Blood cultures from 05/06/25: Grew Streptococcus mitis/oralis group, Staph epidermidis, Sarah glabrata, Sarah tropicalis -- Blood cultures from 05/10/2025 growing Enterobacter cloacae complex, Klebsiella, Enterobacter -- Chao catheter tip cultures--preliminary culture grew Enterobacter cloacae complex, Klebsiella --Central line catheter tip culture - NGTD -- Repeat blood cultures 05/12/2025: Negative to date -- Repeat fungal cultures: No growth to date --S/P Chao's catheter removed on 05/11/2025 --S/P Chao's catheter placement on 05/17/2025 As per infectious disease- Need to continue IV vancomycin, Caspofungin, ertapenem until 05/25/2025. Outpatient [facility] pharmacy discussed with infectious disease(Dr. Galeano) as Caspofungin was unavailable; recommended micafungin. Patient discharged home on IV vancomycin, micafungin and ertapenem. Patient to complete the course on May 25, 2025. (3) Transaminitis: Mild, may be due to sepsis AST 76, ALT 55, alk phos 115, T. bili 0.1 improved (4) On total parenteral nutrition (TPN): (5) Gastrointestinal dysmotility: Patient was recently evaluated at [place] and started on prucalopride (has not started yet) and erythromycin. Plan to follow up after discharge. Discussed with Dr. Pablo Camp ekg/ecg technician at [facility]: Consideration for J-tube. Has follow-up appointment on May 27, 2025 at 2:20 PM. Continue erythromycin (6) POTS (postural orthostatic tachycardia syndrome): (7) Jaqui-Danlos disease: Total Time Total Time Spent Total Time Spent (In Minutes): 45 Total Time Includes: Examination of the Patient, Discharge Planning, Medication Reconciliation, Communication With Other Providers and Other Discharge Plan Discharge Items Patient Disposition: Home - Home Health Services Reason For Visit: NAUSEA, VOMITING Discharge Diagnosis: Bloodstream infection due to central venous catheter, POA Sepsis POA Fungemia ( Sarah Glabrata) Condition on Discharge: Fair Activity: Resume your previous activity Non-emergency contact: Primary Care Provider Call non-emergency contact if: you have any medication questions and your s ymptoms worsen Follow-up/Referrals: Meek Lopez MD [Primary Care Provider] - (Date & Time 05/25/2025 11:00 AM Provider: Meek Lopez MD [facility], [facility] ) Diet: Regular and Full liquid Addtl Attending Provider Instructions: Please you are admitted to the hospital due to infection in blood likely seconda ry to Zhanna. You have been prescribed antibiotics/antifungal until May 25, 2025. Follow-up with your primary care doctor Pending Studies at Discharge: No Stand-Alone Forms: My [facility] [place], Smoking Cessation Medications and DC Order Prescriptions: Continued olanzapine 2.5 mg Tablet 2.5 mg PO HS ondansetron 8 mg Tablet,Disintegrating 8 mg PO Q8H PRN (Reason: Nausea And Vomiting) famotidine 20 mg Tablet 20 mg PO BID baclofen 10 mg Tablet 10 mg PO BID cyanocobalamin (vitamin B-12) 1,000 mcg/mL Solution 1,000 mcg IM MONTHLY montelukast 10 mg Tablet 10 mg PO HS loratadine 10 mg Tablet 10 mg PO DAILY cholecalciferol (vitamin D3) 1,250 mcg (50,000 unit) Tablet 1,250 mcg PO WK linaclotide 145 mcg Capsule 145 mcg PO DAILY PRN (Reason: Constipation) duloxetine 20 mg Capsule,Delayed Release(Dr/Ec) 20 mg PO DAILY erythromycin ethylsuccinate 200 mg/5 mL suspension for reconstitution 100 mg PO TID prucalopride 2 mg tablet 2 mg PO DAILY Patient Comments: has not started yet hydroxyzine HCl 50 mg tablet 50 mg PO QID PRN (Reason: Anxiety) Discharge Orders: Discharge Order (Routine); Ordered 05/20/25 Ordered By: Terrell Staples Admission Data Admit Date/Time: 05/06/25 08:39 Attending Provider: Terrell Staples Admit Provider: Brett Jang Primary Care Provider: Meek Lopez Other Providers: Brett Jang; Abelardo Guerra; Ismael Espana; Tahir Up; Tiffani Villatoro; Miles Galeano I.; Kenny Alcazar II; Amee Faustin; Chaz Barajas; Roger Weaver; Bhaskar Parr
--- NOTE | 2025-05-21 12:25 | Communication Note ---
Date of Service: May 21, 2025 Received a call from patient's mother that patient is not tolerating micafungin well; had numbness and tingling sensation around her mouth and hands. Infusion was stopped after discussing with the home infusion company. Arrangement made with the help of case management for administration of Caspofungin from Tomorrow at [facility] for Remaining doses. However, for today's dose patient will need to come to the ED to receive the Caspofungin 50mg iv once. Discussion done with the ED provider. Her mom was updated.
== END 2025-05-20 15:47 | disposition home health service (06) | DRG 314 ==
LOC: ED 06:41 → EDINP 08:39 → SUATTDRO 08:39 → 2W 12:34 → 3E 05-15 21:35

== ENCOUNTER 2025-05-21 12:50 | Observation (INO) ==
--- NOTE | 2025-05-21 13:18 | Emergency Department Note ---
History of Present Illness General Chief complaint: Allergic Reaction Stated complaint: MEDICATION REACTION Time Seen by Provider: 05/21/25 12:57 Source: patient Mode of arrival: ambulatory Limitations: no limitations History of Present Illness Patient is a 29-year-old female with history of Jaqui-Danlos syndrome, POTS, chronic pain syndrome, TPN dependence, chronic GI dysmotility who presents today for adverse reaction to antifungal infusion. She was just recently discharged with the diagnosis of fungemia secondary to chronic TPN infusion. She was scheduled to receive micafungin today for the first time however she was receiving her infusion she started to get perioral paresthesias as well as paresthesias to her hands. She also felt a lump in her throat. Infusion was stopped prior to completion. Symptoms have resolved. No lip swelling, tongue swelling, rash, wheezing, shortness of breath. Home Medications Medication Instructions Recorded Confirmed Type baclofen 10 mg tablet 10 mg PO BID 04/09/25 05/21/25 History cholecalciferol (vitamin D3) 1,250 1,250 mcg PO WK 04/09/25 05/21/25 History mcg (50,000 unit) tablet cyanocobalamin (vitamin B-12) 1,000 mcg IM MONTHLY 04/09/25 05/21/25 History 1,000 mcg/mL injection solution duloxetine 20 mg capsule,delayed 20 mg PO DAILY 04/09/25 05/21/25 History release famotidine 20 mg tablet 20 mg PO BID 04/09/25 05/21/25 History linaclotide 145 mcg capsule 145 mcg PO DAILY PRN Constipation 04/09/25 05/21/25 History loratadine 10 mg tablet 10 mg PO DAILY 04/09/25 05/21/25 History montelukast 10 mg tablet 10 mg PO HS 04/09/25 05/21/25 History olanzapine 2.5 mg tablet 2.5 mg PO HS 04/09/25 05/21/25 History erythromycin ethylsuccinate 200 100 mg PO TID 05/06/25 05/21/25 History mg/5 mL oral powder for suspension hydroxyzine HCl 50 mg tablet 50 mg PO QID PRN Anxiety 05/06/25 05/21/25 History prucalopride 2 mg tablet 2 mg PO DAILY 05/06/25 05/21/25 History ondansetron 8 mg disintegrating 8 mg PO Q8H PRN Nausea And 05/20/25 05/21/25 Rx tablet Vomiting #30 tabs Allergies Allergy/AdvReac Type Severity Reaction Status Date / Time diphenhydramine Allergy Severe Urticaria, Verified 05/04/25 14:05 [From Benadryl] severe anxiety, jittery prochlorperazine Allergy Severe Anaphylaxis Verified 05/04/25 14:05 [From Compazine] adhesive Allergy Intermediate Redness, Verified 05/04/25 14:05 swelling gluten Allergy Intermediate Hives, GI Verified 05/04/25 14:05 upset peanut Allergy Intermediate Itchy Verified 05/04/25 14:05 throat tree nut Allergy Intermediate Itchy Verified 05/04/25 14:05 throat pollen extracts Allergy Mild Itchy Verified 05/04/25 14:05 eyes, sneezing, congestion chlorhexidine Allergy Unknown Unknown Verified 05/04/25 14:05 iron [From Venofer] AdvReac Severe Abdominal Verified 05/04/25 14:05 Pain fentanyl AdvReac Intermediate nausea and Verified 05/06/25 10:10 vomiting Latex, Natural Rubber AdvReac Intermediate Redness, Verified 05/04/25 14:05 itchy polyurethane Allergy Hives Uncoded 05/04/25 14:05 polyurethane power port Allergy Itching Uncoded 05/04/25 14:05 Past Med/Surg History Problem List (Updated 05/21/25 @ 15:18 by Jean Noble MD) Infusion reaction (Acute) Fungemia Acute hypokalemia (Acute) Transaminitis (Acute) Ileus Transaminitis Chronic pain syndrome E. coli bacteremia Severe sepsis with acute organ dysfunction Sepsis (Acute) Pneumonitis (Acute) Acute dehydration (Acute) Severe protein-calorie malnutrition (Acute) History of central line-associated bloodstream infection (CLABSI) Bacteremia due to methicillin resistant Staphylococcus epidermidis Infection of venous access port (Acute) Sepsis (Acute) MSSA bacteremia Infection complicating venous access device Bacterial sepsis CLABSI (central line-associated bloodstream infection) Cellulitis (Acute) Bacteremia due to Enterococcus Sepsis Tachycardia (Acute) Central venous catheter in place (Acute) broke- clamped in ER, taped around site Fungemia DVT prophylaxis Encounter for pre-operative examination (~02/07/23) Gastrointestinal dysmotility Close exposure to COVID-19 virus (Acute) Iron deficiency (Acute) Symptomatic anemia (Acute) Chronic pain POTS (postural orthostatic tachycardia syndrome) History of esophagogastroduodenoscopy (EGD) Severe malnutrition (Acute) Abdominal pain, chronic, epigastric (Acute) chronic On total parenteral nutrition (TPN) (Acute) Jaqui-Danlos disease Dx several years ago Medical History Gastrostomy tube in place Anxiety Gastrointestinal dysmotility Reactive hypoglycemia dexcom present to left arm Anemia Neuropathy legs Gastroparesis History of COVID-19 02/2022, not hospitalized 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 Jejunostomy tube present placed October 2020 Surgical History S/P gastrostomy History of removal of Port-a-Cath (05/21/24) Infusaport Removal - Left side(Left) - Alton Garcia DO, FACS History of myringotomy History of surgery (06/24/21) Removal of Right Tunneled Central Line in Internal Jugular Catheter H/O wisdom tooth extraction H/O wrist surgery right S/P knee surgery Left Family History Other Adopted Social History Smoking Status: Never smoker Second Hand Exposure: No; Do You Dip or Chew Tobacco: No; Hx Alcohol Use: No Hx Substance Use: No Preferred Language: Korean Communication Ability: Effective Dynamometer Tester Engine Required: No Beliefs That Will Affect Care: None Current Living Situation: Family Current Living Situation Comment: Lives w/ family at home Feels Safe at Home: Yes Assistive Devices: None Review of Systems Review of systems negative outside of positive findings mentioned in HPI. Physical Exam Vital Signs Vital Signs - 24 hr 05/21/25 12:51 05/21/25 12:52 05/21/25 14:30 Temperature 36.6 C Temperature Source Temporal Artery Scan Pulse Rate 129 H Pulse Rate [Finger] 94 H Respiratory Rate 18 18 Respiratory Effort / Characteristics Non-Labored Spontaneous Respiratory Depth Normal Respiratory Pattern Regular Blood Pressure 128/87 Blood Pressure [Right Arm] 124/95 Blood Pressure Mean 100 Blood Pressure Mean [Right Arm] 104 Pulse Oximetry 98 97 98 Oxygen Delivery Method Room Air Room Air Room Air Sepsis Recent Fever Within 48 Hours No Sepsis New/Unexplained Change in Mental Status N/A Sepsis Action Taken by Nursing No Action Required See below. Constitutional WD/WN, vitals as above ENMT external ear and nose normal, oropharynx normal Respiratory normal respiratory effort, lungs clear to auscultation Cardiovascular Rate/Rhythm: + tachycardic Heart Sounds: normal S1 and normal S2 Chest (Breasts) normal inspection/palpation of breasts Additional Comments: CVC in place Course Administered Medications Caspofungin 50 mg/ Sodium (Chloride) 260 mls @ 250 mls/hr IV Q24H [facility]; Protocol Stop: 05/31/25 13:14 Last Infusion: 05/21/25 15:02 Dose: Infused Documented By: nicole Admin: 05/21/25 13:56 Dose: 250 mls/hr Documented By: HANG Medical Decision Making Differential Diagnosis DDx includes but not limited to: anaphylaxis, allergic reaction, panic attack, infusion reaction Medical Records Attestation: I reviewed the patient's medical records. Home Medications Current Medication List: was personally reviewed by me Laboratory Data Attestation: I reviewed the patient's lab results. 05/21/25 13:50 05/21/25 13:50 Lab Results 05/21/25 Range/Units 13:50 WBC 8.41 (4.8-10.8) K/ul RBC 3.78 L (4.20-5.40) M/uL Hgb 10.3 L (12.0-16.0) g/dl Hct 31.7 L (37.0-47.0) % MCV 83.9 (80.0-100.0) fL MCH 27.2 (25.0-34.0) pg MCHC 32.5 (32.0-36.0) g/dL RDW Std Deviation 40.7 (36.4-46.3) fL RDW Coeff of Priscilla 13.3 (11.5-14.5) % Plt Count 620 H (130-400) K/uL MPV 8.5 L (9.4-12.4) fL Immature Gran % (Auto) 0.4 % Neut % (Auto) 73.0 % Lymph % (Auto) 21.0 % Ramsey % (Auto) 3.9 % Eos % (Auto) 1.0 % Baso % (Auto) 0.7 % Neut # (Auto) 6.14 (1.40-6.50) K/uL Lymph # (Auto) 1.77 (1.20-3.40) K/uL Ramsey # (Auto) 0.33 (0.11-0.59) K/uL Eos # (Auto) 0.08 (0.00-0.50) K/uL Baso # (Auto) 0.06 (0.00-0.20) K/uL Immature Gran # (Auto) 0.03 (0.01-0.20) K/uL Sodium 137 (136-145) mmol/L Potassium 4.0 (3.5-5.1) mmol/L Chloride 103 (98-107) mmol/L Carbon Dioxide 25 (21-32) mmol/L Anion Gap 9 (3-11) BUN 16 (6-23) mg/dl Creatinine 0.67 (0.6-1.2) mg/dl Est Cr Clr Drug Dosing Not Reportable eGFR 122.78 BUN/Creatinine Ratio 23.9 H (10-20) Glucose 93 (70-99(Fasting)) mg/dl Calcium 10.0 (8.6-10.3) mg/dl Blood Pressure Blood Pressure Findings: Normal blood pressure MDM Narrative Patient is a 29-year-old female with multiple comorbidities as seen above who presents today for infusion reaction. She received her first dose of IV micafungin outpatient and started develop paresthesias and globus sensation. The symptoms resolved prior to arrival. No evidence of anaphylaxis or concern for allergic reaction. I spoke with Dr. Staples who recommends a dose of Capsofungin for recent diagnosis of candidemia. Labwork ordered per Hospitalist request. Dr. Staples came to see patient bedside and plans for observation admission. Impression & Plan Infusion reaction Discharge Plan Visit Data Chief Complaint: Allergic Reaction Stated Complaint: MEDICATION REACTION ED Provider: Jean Noble Discharge Problem: Infusion reaction Patient Disposition: Admitted As Inpatient Condition: Good Forms Stand Alone Forms: My [facility] [place] Prescriptions Prescriptions: No Action olanzapine 2.5 mg Tablet 2.5 mg PO HS famotidine 20 mg Tablet 20 mg PO BID baclofen 10 mg Tablet 10 mg PO BID cyanocobalamin (vitamin B-12) 1,000 mcg/mL Solution 1,000 mcg IM MONTHLY montelukast 10 mg Tablet 10 mg PO HS loratadine 10 mg Tablet 10 mg PO DAILY cholecalciferol (vitamin D3) 1,250 mcg (50,000 unit) Tablet 1,250 mcg PO WK linaclotide 145 mcg Capsule 145 mcg PO DAILY PRN (Reason: Constipation) duloxetine 20 mg Capsule,Delayed Release(Dr/Ec) 20 mg PO DAILY erythromycin ethylsuccinate 200 mg/5 mL suspension for reconstitution 100 mg PO TID prucalopride 2 mg tablet 2 mg PO DAILY Patient Comments: has not started yet hydroxyzine HCl 50 mg tablet 50 mg PO QID PRN (Reason: Anxiety) ondansetron 8 mg Tablet,Disintegrating 8 mg PO Q8H PRN (Reason: Nausea And Vomiting) Qty: 30 0RF Referrals Referrals: Meek Lopez MD [Primary Care Provider] -
[2025-05-21] MEDS: CASPOFUNGIN 50 MG in SODIUM CHLORIDE 0.9% 250 ML IV SCH (13:56)
[2025-05-21 14:10] LABS: Hematocrit (blood only) 31.7 % (37.0-47.0); Hemoglobin 10.3 g/dl (12.0-16.0); Immature Granulocytes # (auto) 0.03 K/uL (0.01-0.20); Immature Granulocytes % (auto) 0.4 %; Mean Corpuscular Hemoglobin 27.2 pg (25.0-34.0); Mean Corpuscular Volume 83.9 fL (80.0-100.0); Platelet Count 620 K/uL (130-400); RDW Standard Deviation 40.7 fL (36.4-46.3); Red Blood Count 3.78 M/uL (4.20-5.40); White Blood Count 8.41 K/ul (4.8-10.8)
[2025-05-21 14:27] LABS: Anion Gap 9 (3-11); Blood Urea Nitrogen 16 mg/dl (6-23); Calcium 10.0 mg/dl (8.6-10.3); Carbon Dioxide 25 mmol/L (21-32); Chloride 103 mmol/L (98-107); Glucose 93 mg/dl (70-99(Fasting)); Potassium 4.0 mmol/L (3.5-5.1); Sodium 137 mmol/L (136-145)
[2025-05-21] MEDS ORDERED: VANCOMYCIN CONSULT ACTIVE PRN (15:28)
--- NOTE | 2025-05-21 15:28 | History & Physical Report ---
Date of Service May 21, 2025 Assessment & Plan (1) Infusion reaction: (2) Fungemia: Plan Hx of Fungemia ( Sarah Glabrata) H/O of GI dysmotility on TPN via Chao catheter; possible adverse reaction to Micafungin -- Blood cultures from 05/06/25: Grew Streptococcus mitis/oralis group, Staph epidermidis, Sarah glabrata, Sarah tropicalis -- Blood cultures from 05/10/2025 growing Enterobacter cloacae complex, Klebsiella, Enterobacter -- Chao catheter tip cultures--preliminary culture grew Enterobacter cloacae complex, Klebsiella --Central line catheter tip culture negative to date -- Repeat blood cultures 05/12/2025: Negative to date -- Repeat fungal cultures: No growth to date --S/P Chao's catheter removed on 05/11/2025 --S/P Chao's catheter placement on 05/17/2025 Patient was discharged on 05/20 on vancomycin, ertapenem and micafungin; presents with perioral numbness, tingling sensation after receiving first dose of micafungin. Plan to continue Caspofungin, vancomycin, ertapenem Will place on IV fluids for the time being; TPN to be resumed as per pharmacy History of GI dysmotility on TPN Patient recently started on erythromycin; has follow-up with Dr. Pablo Camp second baller at [facility]: Consideration for J-tube. Has follow- up appointment on May 27, 2025 at 2:20 PM History of POTScontinue on IV fluids DVT prophylaxis heparin Full code Time spent evaluating patient, direct bedside care, chart review, placing orders, interpretation of diagnostic studies, discussion with consultants, patient, and family members, as well as other required patient management activities is 75 minutes Please note the above document was generated using voice recognition software. It may contain grammatical, syntax or spelling errors. Any formal questions or concerns about the content, text or information contained within the body of this dictation should be directly addressed to the provider for clarification History of Present Illness Chief Complaint: Possible allergic reaction from micafungin Primary Care Provider: Meek Lopez MD History obtained from interview the patient, discussing with the patient's mother, ED provider and chart review. Patient was hospitalized for over 2 weeks for blood stream infection due to central venous catheter; was discharged yesterday home on antibiotics and antifungal. She was discharged on IV vancomycin 750 mg, ertapenem and micafungin. Patient was placed on micafungin after infectious disease recommended alternative to caspofungin(as it was not available for home infusion). Patient reports that after receiving micafungin; she started to have perioral paresthesia, felt a lump in her throat. She did not have any shortness of breath, rash, chest pain, visual changes, fever, chills or abdominal pain. She does report nausea and pain at the insertion site of the Chao. Initial plan was to give Caspofungin in the ED for today and arrangements were made at the [facility] for patient to Caspofungin. However, given patient's ongoing nausea, pain; referred for observation. Allergies Allergy/AdvReac Type Severity Reaction Status Date / Time diphenhydramine Allergy Severe Urticaria, Verified 05/04/25 14:05 [From Benadryl] severe anxiety, jittery prochlorperazine Allergy Severe Anaphylaxis Verified 05/04/25 14:05 [From Compazine] adhesive Allergy Intermediate Redness, Verified 05/04/25 14:05 swelling gluten Allergy Intermediate Hives, GI Verified 05/04/25 14:05 upset peanut Allergy Intermediate Itchy Verified 05/04/25 14:05 throat tree nut Allergy Intermediate Itchy Verified 05/04/25 14:05 throat pollen extracts Allergy Mild Itchy Verified 05/04/25 14:05 eyes, sneezing, congestion chlorhexidine Allergy Unknown Unknown Verified 05/04/25 14:05 iron [From Venofer] AdvReac Severe Abdominal Verified 05/04/25 14:05 Pain fentanyl AdvReac Intermediate nausea and Verified 05/06/25 10:10 vomiting Latex, Natural Rubber AdvReac Intermediate Redness, Verified 05/04/25 14:05 itchy polyurethane Allergy Hives Uncoded 05/04/25 14:05 polyurethane power port Allergy Itching Uncoded 05/04/25 14:05 Home Medications Medication Instructions Recorded Confirmed Type baclofen 10 mg tablet 10 mg PO BID 04/09/25 05/21/25 History cholecalciferol (vitamin D3) 1,250 1,250 mcg PO WK 04/09/25 05/21/25 History mcg (50,000 unit) tablet cyanocobalamin (vitamin B-12) 1,000 mcg IM MONTHLY 04/09/25 05/21/25 History 1,000 mcg/mL injection solution duloxetine 20 mg capsule,delayed 20 mg PO DAILY 04/09/25 05/21/25 History release famotidine 20 mg tablet 20 mg PO BID 04/09/25 05/21/25 History linaclotide 145 mcg capsule 145 mcg PO DAILY PRN Constipation 04/09/25 05/21/25 History loratadine 10 mg tablet 10 mg PO DAILY 04/09/25 05/21/25 History montelukast 10 mg tablet 10 mg PO HS 04/09/25 05/21/25 History olanzapine 2.5 mg tablet 2.5 mg PO HS 04/09/25 05/21/25 History erythromycin ethylsuccinate 200 100 mg PO TID 05/06/25 05/21/25 History mg/5 mL oral powder for suspension hydroxyzine HCl 50 mg tablet 50 mg PO QID PRN Anxiety 05/06/25 05/21/25 History prucalopride 2 mg tablet 2 mg PO DAILY 05/06/25 05/21/25 History ondansetron 8 mg disintegrating 8 mg PO Q8H PRN Nausea And 05/20/25 05/21/25 Rx tablet Vomiting #30 tabs Past Med/Surg History Problem List (Updated 05/21/25 @ 15:18 by Jean Noble MD) Infusion reaction (Acute) Fungemia Acute hypokalemia (Acute) Transaminitis (Acute) Ileus Transaminitis Chronic pain syndrome E. coli bacteremia Severe sepsis with acute organ dysfunction Sepsis (Acute) Pneumonitis (Acute) Acute dehydration (Acute) Severe protein-calorie malnutrition (Acute) History of central line-associated bloodstream infection (CLABSI) Bacteremia due to methicillin resistant Staphylococcus epidermidis Infection of venous access port (Acute) Sepsis (Acute) MSSA bacteremia Infection complicating venous access device Bacterial sepsis CLABSI (central line-associated bloodstream infection) Cellulitis (Acute) Bacteremia due to Enterococcus Sepsis Tachycardia (Acute) Central venous catheter in place (Acute) broke- clamped in ER, taped around site Fungemia DVT prophylaxis Encounter for pre-operative examination (~02/07/23) Gastrointestinal dysmotility Close exposure to COVID-19 virus (Acute) Iron deficiency (Acute) Symptomatic anemia (Acute) Chronic pain POTS (postural orthostatic tachycardia syndrome) History of esophagogastroduodenoscopy (EGD) Severe malnutrition (Acute) Abdominal pain, chronic, epigastric (Acute) chronic On total parenteral nutrition (TPN) (Acute) Jaqui-Danlos disease Dx several years ago Medical History Gastrostomy tube in place Anxiety Gastrointestinal dysmotility Reactive hypoglycemia dexcom present to left arm Anemia Neuropathy legs Gastroparesis History of COVID-19 02/2022, not hospitalized 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 Jejunostomy tube present placed October 2020 Surgical History S/P gastrostomy History of removal of Port-a-Cath (05/21/24) Infusaport Removal - Left side(Left) - Alton Garcia DO, FACS History of myringotomy History of surgery (06/24/21) Removal of Right Tunneled Central Line in Internal Jugular Catheter H/O wisdom tooth extraction H/O wrist surgery right S/P knee surgery Left Family History Other Adopted Social History Smoking Status: Never smoker Second Hand Exposure: No; Do You Dip or Chew Tobacco: No; Hx Alcohol Use: No Hx Substance Use: No Preferred Language: Barbadian Communication Ability: Effective Communications Operator Required: No Beliefs That Will Affect Care: None Current Living Situation: Family Current Living Situation Comment: Lives w/ family at home Feels Safe at Home: Yes Assistive Devices: None Review of Systems Review of Systems: All systems reviewed & are unremarkable except as noted in Subjective Physical Exam Physical Exam: Constitutional: Appears comfortable; not in distress. Respiratory: normal respiratory effort, lungs clear to auscultation, no wheeze, rales, rhonchi. Normal insp/exp effort, no accessory muscle use Cardiovascular: RRR, no murmur, no edema Vessels: no JVD or carotid bruit Chest: Chao catheter in place; no surrounding erythema. Abdomen: normal bowel sounds, soft, nontende. G-tube in place Musculoskeletal: no cyanosis or clubbing, extremities motor strength 5/5 Skin: no rashes, warm and dry normal turgor Neurologic: PERRL, EOMI, accommodation nl, no face palsy, no dysarthria CN's II- XI intact bilaterally and moves all extremities Results & Data Results & Data Vital Signs (Past 12 Hours) Vital Signs Temp Pulse Pulse Resp BP BP Pulse Ox 05/21/25 14:30 94 H 18 124/95 98 05/21/25 12:52 36.6 C 129 H 18 128/87 97 05/21/25 12:51 98 O2 Del Method 05/21/25 14:30 Room Air 05/21/25 12:52 Room Air 05/21/25 12:51 Room Air
[2025-05-21] MEDS ORDERED: TPN/PPN CONSULT PHARMACY STA (15:29)
[2025-05-21] MEDS ORDERED: DEXTROSE 10% 1,000 ML IV PRN (15:29)
[2025-05-21] MEDS ORDERED: CASPOFUNGIN 50 MG in SODIUM CHLORIDE 0.9% 250 ML IV SCH (15:30)
--- NOTE | 2025-05-21 16:13 | Pharmacy Report ---
Pharmacy PK ABX Note - Date of Service May 21, 2025 - Assessment and Plan Assessment 29 year old F receiving IV Vancomycin + Caspofungin + Ertapenem for treatment of CLABSI c/b polymicrobial bacteremia. Hx of Fungemia ( Sarah Glabrata) H/O of GI dysmotility on TPN via Chao catheter; possible adverse reaction to Micafungin -- Blood cultures from 05/06/25: Grew Streptococcus mitis/oralis group, Staph epidermidis, Sarah glabrata, Sarah tropicalis -- Blood cultures from 05/10/2025 growing Enterobacter cloacae complex, Klebsiella, Enterobacter -- Chao catheter tip cultures--preliminary culture grew Enterobacter cloacae complex, Klebsiella --Central line catheter tip culture negative to date -- Repeat blood cultures 05/12/2025: Negative to date -- Repeat fungal cultures: No growth to date --S/P Chao's catheter removed on 05/11/2025 --S/P Chao's catheter placement on 05/17/2025 Patient was discharged on 05/20 on vancomycin, ertapenem and micafungin; presents with perioral numbness, tingling sensation after receiving first dose of micafungin. Plan to continue Caspofungin, vancomycin, ertapenem as inpatient. Plan Vancomycin (start date 05/06) * Continue 750mg IV Q8H * Regimen is predicted to achieve target AUC/BRITT of 400-600 mg/L.hr * Trough level ordered for: 05/22/25 at 730am. Ertapenem 1g IV Q24h (start date 05/16) Caspofungin 50mg IV Q24h (start date 05/08) Pharmacy will continue to follow and will adjust dose/frequency as necessary. Thank you. Pharmacy has transitioned to AUC monitoring for vancomycin. AUC/BRITT is the preferred PK/PD target and is associated with decreased risk of nephrotoxicity compared to traditional trough targets.
[2025-05-21] MEDS: ONDANSETRON INJ 2 MG/ML 2 ML VIAL IV PRN (16:21)
[2025-05-21] MEDS: HYDROmorphone INJ 0.5 MG/0.5 ML SYR IV PRN (16:21)
[2025-05-21] MEDS: VANCOMYCIN HCL 750 MG in SODIUM CHLORIDE 0.9% 250 ML IV SCH (16:21)
[2025-05-21] MEDS: ERTAPENEM 1000MG 1,000 MG/10 ML SYR IV SCH (16:22)
[2025-05-21] MEDS ORDERED: LINACLOTIDE 145 MCG CAPSULE PO PRN (17:11)
[2025-05-21] MEDS: D5W AND NSS 1,000 ML IV SCH (17:20)
[2025-05-21] MEDS: LORazepam Inj 0.5 MG in SYRINGE 0.25 ML IV PRN (18:09)
[2025-05-21] MEDS ORDERED: TPN/PPN CONSULT PHARMACY PRN (20:57)
[2025-05-21] MEDS: BACLOFEN 10 MG TAB PO SCH (21:00)
[2025-05-21] MEDS: ACETAMINOPHEN 325 MG TAB PO PRN (21:00)
[2025-05-21] MEDS: ERYTHROMYCIN ETHYLSUCC SUSP 200 MG/5 ML 100 ML BTL PO SCH (21:00)
[2025-05-21] MEDS: FAMOTIDINE 20 MG TAB PO SCH (21:00)
[2025-05-21] MEDS: OLANZAPINE 2.5 MG TAB PO SCH (21:01)
[2025-05-21] MEDS: MONTELUKAST SODIUM 10 MG TABLET PO SCH (21:01)
[2025-05-21] MEDS ORDERED: TPN/PPN CONSULT PHARMACY SCH (21:30)
[2025-05-21] MEDS: HEPARIN SOD 5,000 UNIT/0.5 ML VIAL SQ SCH (21:49)
[2025-05-22 07:32] LABS: Hematocrit (blood only) 26.6 % (37.0-47.0); Hemoglobin 8.5 g/dl (12.0-16.0); Mean Corpuscular Hemoglobin 27.3 pg (25.0-34.0); Mean Corpuscular Volume 85.5 fL (80.0-100.0); Platelet Count 455 K/uL (130-400); RDW Standard Deviation 41.5 fL (36.4-46.3); Red Blood Count 3.11 M/uL (4.20-5.40); White Blood Count 6.74 K/ul (4.8-10.8)
[2025-05-22 07:50] LABS: Alanine Aminotransferase 12.0 U/L (7-52); Alkaline Phosphatase 58.0 U/L (34-104); Anion Gap 3.0 (3-11); Bilirubin,Total 0.4 mg/dl (0.2-1.0); Blood Urea Nitrogen 10.0 mg/dl (6-23); Calcium 8.6 mg/dl (8.6-10.3); Carbon Dioxide 27.0 mmol/L (21-32); Chloride 111.0 mmol/L (98-107); Creatinine Clr Calc Pharmacy 108.2 ml/min; Glucose 293.0 mg/dl (70-99(Fasting)); Magnesium 1.6 mg/dl (1.7-2.4); Potassium 3.3 mmol/L (3.5-5.1); Sodium 141.0 mmol/L (136-145); Triglycerides 245.0 mg/dl (0-150)
[2025-05-22] MEDS: LORATADINE 10 MG TAB PO SCH (08:59)
[2025-05-22] MEDS: VANCOMYCIN LEVEL ONE (09:02)
--- NOTE | 2025-05-22 09:35 | Hospitalist Progress Note ---
Date of Service May 22, 2025 Assessment & Plan (1) Infusion reaction: (2) Fungemia: Plan Hx of Fungemia ( Sarah Glabrata) H/O of GI dysmotility on TPN via Chao catheter; possible adverse reaction to Micafungin -- Blood cultures from 05/06/25: Grew Streptococcus mitis/oralis group, Staph epidermidis, Sarah glabrata, Saarh tropicalis -- Blood cultures from 05/10/2025 growing Enterobacter cloacae complex, Klebsiella, Enterobacter -- Chao catheter tip cultures--preliminary culture grew Enterobacter cloacae complex, Klebsiella --Central line catheter tip culture negative to date -- Repeat blood cultures 05/12/2025: Negative to date -- Repeat fungal cultures: No growth to date --S/P Chao's catheter removed on 05/11/2025 --S/P Chao's catheter placement on 05/17/2025 Patient was discharged on 05/20 on vancomycin, ertapenem and micafungin; presents with perioral numbness, tingling sensation after receiving first dose of micafungin. Plan to continue Caspofungin, vancomycin, ertapenem On Zofran, Ativan for nausea Pain control with Dilaudid as needed To be restarted on TPN History of GI dysmotility on TPN Patient recently started on erythromycin; has follow-up with Dr. Pablo Camp dietetic aide at [facility]: Consideration for J-tube. Has follow- up appointment on May 27, 2025 at 2:20 PM History of POTS- on TPN DVT prophylaxis heparin Full code Disposition: Patient continues to have significant nausea and vomiting, pain at insertion site with Chao; She is needing management of nausea with IV Zofran/Ativan; continue to monitor inpatient. Time spent evaluating patient, direct bedside care, chart review, placing orders, interpretation of diagnostic studies, discussion with consultants, patient, and family members, as well as other required patient management activities is 50 minutes Please note the above document was generated using voice recognition software. It may contain grammatical, syntax or spelling errors. Any formal questions or concerns about the content, text or information contained within the body of this dictation should be directly addressed to the provider for clarification Admission and Anticipated Discharge Date Admission Date: May 21, 2025 Subjective Patient seen and examined at bedside. She continues to have persistent nausea and vomiting while on antibiotic along with pain along the Chao insertion site. No fever or chills overnight. Review of Systems Review of Systems: All systems reviewed & are unremarkable except as noted in Subjective Physical Exam Physical Exam: Constitutional: Appears comfortable; not in distress. Respiratory: normal respiratory effort, lungs clear to auscultation, no wheeze, rales, rhonchi. Normal insp/exp effort, no accessory muscle use Cardiovascular: RRR, no murmur, no edema Vessels: no JVD or carotid bruit Chest: Chao catheter in place; no surrounding erythema. Abdomen: normal bowel sounds, soft, nontende. G-tube in place Musculoskeletal: no cyanosis or clubbing, extremities motor strength 5/5 Skin: no rashes, warm and dry normal turgor Neurologic: PERRL, EOMI, accommodation nl, no face palsy, no dysarthria CN's II- XI intact bilaterally and moves all extremities Results & Data Results & Data Vital Signs (Past 12 Hours) Vital Signs Temp Pulse Resp BP Pulse Ox O2 Del Method 05/22/25 07:36 37.0 C 101 H 15 101/68 97 Room Air 05/21/25 22:21 37.1 C 90 16 116/81 99 Room Air
[2025-05-22] MEDS ORDERED: DEXTROSE 10% 1,000 ML IV PRN (11:15)
[2025-05-22] MEDS: MAGNESIUM SULFATE / D5W 1 GM/100 ML BAG IV SCH (11:37)
[2025-05-22] MEDS: POTASSIUM CHLORIDE / WTR 10 MEQ/100 ML PLCT IV SCH (11:37)
--- NOTE | 2025-05-22 14:37 | Pharmacy Report ---
Pharmacy PK ABX Note - Date of Service May 22, 2025 - Assessment and Plan Assessment 05/22 * Trough level this morning 13 mcg/mL which correlates with target AUC/BRITT. Will continue current vancmycin dosing 05/21 29 year old F receiving IV Vancomycin + Caspofungin + Ertapenem for treatment of CLABSI c/b polymicrobial bacteremia. Hx of Fungemia ( Sarah Glabrata) H/O of GI dysmotility on TPN via Chao catheter; possible adverse reaction to Micafungin -- Blood cultures from 05/06/25: Grew Streptococcus mitis/oralis group, Staph epidermidis, Sarah glabrata, Sarah tropicalis -- Blood cultures from 05/10/2025 growing Enterobacter cloacae complex, Klebsiella, Enterobacter -- Chao catheter tip cultures--preliminary culture grew Enterobacter cloacae complex, Klebsiella --Central line catheter tip culture negative to date -- Repeat blood cultures 05/12/2025: Negative to date -- Repeat fungal cultures: No growth to date --S/P Chao's catheter removed on 05/11/2025 --S/P Chao's catheter placement on 05/17/2025 Patient was discharged on 05/20 on vancomycin, ertapenem and micafungin; presents with perioral numbness, tingling sensation after receiving first dose of micafungin. Plan to continue Caspofungin, vancomycin, ertapenem as inpatient. Plan Vancomycin * Continue 750mg IV Q8H * Regimen is predicted to achieve target AUC/BRITT of 400-600 mg/L.hr * Trough level to be ordered weekly or sooner with renal function changes Ertapenem 1g IV Q24h (start date 05/16) Caspofungin 50mg IV Q24h (start date 05/08) Pharmacy will continue to follow and will adjust dose/frequency as necessary. Thank you. Pharmacy has transitioned to AUC monitoring for vancomycin. AUC/BRITT is the preferred PK/PD target and is associated with decreased risk of nephrotoxicity compared to traditional trough targets.
--- NOTE | 2025-05-22 14:48 | Pharmacy Report ---
Pharmacy Initial PN Consult Nt - Date of Service May 22, 2025 - Scope Pharmacy has been consulted on 05/22 to manage parenteral nutrition orders and order appropriate labs. As part of the Nutrition Support Team Guidelines, pharmacy will work in conjunction with dietary when determining the patients caloric needs. - Subjective * The patient is a 29 year old Female admitted on 05/21/25 for FUNGEMIA, ALLERGIC RXN. * Patient is to receive parenteral nutrition / continued from outpatient - Objective Vascular Access: * Patient currently has a central line. Height & Weight (Last Documented) Height 5 ft 3 in Weight 45.4 kg Diet Order(s) 05/21/25 Dinner Diet Intake & Ouput (24hrs) 05/21/25 05/22/25 05/23/25 06:59 06:59 06:59 Intake Total 1940 / 1940 1522.5 / 1522.5 Output Total 150 / 150 Balance 1790 / 1790 1522.5 / 1522.5 Selected Laboratory Results 05/22/25 07:19 Sodium 141 Potassium 3.3 L Chloride 111 H Carbon Dioxide 27 Anion Gap 3 BUN 10 Creatinine 0.56 L BUN/Creatinine Ratio 17.9 Glucose 293 H Calcium 8.6 Phosphorus 3.2 Magnesium 1.6 L Total Bilirubin 0.4 AST 16 ALT 12 Alkaline Phosphatase [address] - Initial Nutrition Assessment Start: 05/21/25 22:30 Freq: Status: Active Protocol: Document 05/21/25 22:30 KK (Rec: 05/21/25 22:43 KK [id number]) - Assessment & Plan Assessment: * Appreciate dietitians recommendations for macronutrients. Discussed with provider, okay to stop IVFs prior to TPN starting at 1600. Plan to replete K and Mg prior to TPN starting with IV replacement. Plan: * For Day #1 of TPN administration, the following will be ordered: * Macronutrients: * Amino Acids: 77 grams/day * Dextrose: 134 grams/day * Lipids: -- grams/day * Micronutrients: * Sodium phosphate: 15 mMol/day * Sodium chloride: 40 mEq/day * Sodium acetate: 30 mEq/day * Potassium acetate: 50 mEq/day * Magnesium sulfate: 8.12 mEq/day * Multivitamins: 10 mL/day * Trace elements: 1 mL/day * Folic Acid: 1 mg/day * Total volume of 1034 mL will be infused over 24 hours and will provide 764 kcal/day * Labs will be ordered per PN protocol. * Pharmacy will follow and adjust PN orders on a daily basis. Thank you!
[2025-05-23 07:13] LABS: Anion Gap 6.0 (3-11); Blood Urea Nitrogen 12.0 mg/dl (6-23); Calcium 9.4 mg/dl (8.6-10.3); Carbon Dioxide 27.0 mmol/L (21-32); Chloride 105.0 mmol/L (98-107); Creatinine Clr Calc Pharmacy 114.8 ml/min; Glucose 87.0 mg/dl (70-99(Fasting)); Magnesium 1.9 mg/dl (1.7-2.4); Potassium 3.9 mmol/L (3.5-5.1); Sodium 138.0 mmol/L (136-145)
--- NOTE | 2025-05-23 10:31 | Hospitalist Progress Note ---
Date of Service May 23, 2025 Assessment & Plan (1) Infusion reaction: (2) Fungemia: Plan Hx of Fungemia ( Sarah Glabrata) H/O of GI dysmotility on TPN via Chao catheter; possible adverse reaction to Micafungin -- Blood cultures from 05/06/25: Grew Streptococcus mitis/oralis group, Staph epidermidis, Sarah glabrata, Sarah tropicalis -- Blood cultures from 05/10/2025 growing Enterobacter cloacae complex, Klebsiella, Enterobacter -- Chao catheter tip cultures--preliminary culture grew Enterobacter cloacae complex, Klebsiella --Central line catheter tip culture negative to date -- Repeat blood cultures 05/12/2025: Negative to date -- Repeat fungal cultures: No growth to date --S/P Chao's catheter removed on 05/11/2025 --S/P Chao's catheter placement on 05/17/2025 Patient was discharged on 05/20 on vancomycin, ertapenem and micafungin; presents with perioral numbness, tingling sensation after receiving first dose of micafungin. Plan to continue Caspofungin, vancomycin, ertapenem unitl 05/25/2025 Patient reports persistent nausea and had episode of vomiting on 05/22; suspect is likely secondary to patient's chronic GI issues exacerbated by antibiotics. Plan to continue Zofran; add Phenergan; continue Ativan as needed Continue TPN Pain control History of GI dysmotility on TPN Patient recently started on erythromycin; has follow-up with Dr. Pablo Camp dining server at [facility]: Consideration for J-tube. Has follow- up appointment on May 27, 2025 at 2:20 PM History of POTS- on TPN DVT prophylaxis heparin Full code Disposition: Patient continues to have significant nausea and vomiting, pain at insertion site with Chao; She is needing management of nausea with IV Zofran/Ativan; continue to monitor inpatient. Time spent evaluating patient, direct bedside care, chart review, placing orders, interpretation of diagnostic studies, discussion with consultants, patient, and family members, as well as other required patient management activities is 50 minutes Please note the above document was generated using voice recognition software. It may contain grammatical, syntax or spelling errors. Any formal questions or concerns about the content, text or information contained within the body of this dictation should be directly addressed to the provider for clarification Admission and Anticipated Discharge Date Admission Date: May 23, 2025 Subjective Patient seen and examined at bedside. Overnight, she had multiple episode of vomiting. No vomiting noted today. No fever or chills Review of Systems Review of Systems: All systems reviewed & are unremarkable except as noted in Subjective Physical Exam Physical Exam: Constitutional: Appears comfortable; not in distress. Respiratory: normal respiratory effort, lungs clear to auscultation, no wheeze, rales, rhonchi. Normal insp/exp effort, no accessory muscle use Cardiovascular: RRR, no murmur, no edema Vessels: no JVD or carotid bruit Chest: Chao catheter in place; no surrounding erythema. Abdomen: normal bowel sounds, soft, nontende. G-tube in place Musculoskeletal: no cyanosis or clubbing, extremities motor strength 5/5 Skin: no rashes, warm and dry normal turgor Neurologic: PERRL, EOMI, accommodation nl, no face palsy, no dysarthria CN's II- XI intact bilaterally and moves all extremities Results & Data Results & Data Vital Signs (Past 12 Hours) Vital Signs Temp Pulse Resp BP BP Pulse Ox O2 Del Method 05/23/25 07:05 36.6 C 78 16 90/52 L 97 Room Air 05/23/25 00:06 36.8 C 107 H 18 109/77 98 Room Air
[2025-05-23] MEDS: PROMETHAZINE 6.25 MG/50.25 ML BAG IV PRN (13:23)
[2025-05-24 10:14] LABS: Anion Gap 6.0 (3-11); Blood Urea Nitrogen 15.0 mg/dl (6-23); Calcium 9.3 mg/dl (8.6-10.3); Carbon Dioxide 27.0 mmol/L (21-32); Chloride 105.0 mmol/L (98-107); Creatinine Clr Calc Pharmacy 103.1 ml/min; Glucose 100.0 mg/dl (70-99(Fasting)); Magnesium 1.8 mg/dl (1.7-2.4); Potassium 3.8 mmol/L (3.5-5.1); Sodium 138.0 mmol/L (136-145); Triglycerides 219.0 mg/dl (0-150)
--- NOTE | 2025-05-24 10:47 | Hospitalist Progress Note ---
Date of Service May 24, 2025 Assessment & Plan (1) Infusion reaction: (2) Fungemia: Plan Hx of Fungemia ( Sarah Glabrata) H/O of GI dysmotility on TPN via Chao catheter; possible adverse reaction to Micafungin -- Blood cultures from 05/06/25: Grew Streptococcus mitis/oralis group, Staph epidermidis, Sarah glabrata, Sarah tropicalis -- Blood cultures from 05/10/2025 growing Enterobacter cloacae complex, Klebsiella, Enterobacter -- Chao catheter tip cultures--preliminary culture grew Enterobacter cloacae complex, Klebsiella --Central line catheter tip culture negative to date -- Repeat blood cultures 05/12/2025: Negative to date -- Repeat fungal cultures: No growth to date --S/P Chao's catheter removed on 05/11/2025 --S/P Chao's catheter placement on 05/17/2025 Patient was discharged on 05/20 on vancomycin, ertapenem and micafungin; presents with perioral numbness, tingling sensation after receiving first dose of micafungin. Plan to continue Caspofungin, vancomycin, ertapenem unitl 05/25/2025 Patient reports persistent nausea and had episode of vomiting on 05/22; suspect is likely secondary to patient's chronic GI issues exacerbated by antibiotics. Plan to continue Zofran; add Phenergan; continue Ativan as needed Continue TPN Pain control History of GI dysmotility on TPN Patient recently started on erythromycin; has follow-up with Dr. Pablo Camp incident manager at [facility]: Consideration for J-tube. Has follow- up appointment on May 27, 2025 at 2:20 PM History of POTS- on TPN DVT prophylaxis heparin Full code Disposition: Patient continues to have significant nausea and vomiting, pain at insertion site with Chao; She is needing management of nausea with IV Zofran/Ativan; continue to monitor inpatient.Discharge after completion of the antibiotics; possibly tomorrow. Please note the above document was generated using voice recognition software. It may contain grammatical, syntax or spelling errors. Any formal questions or concerns about the content, text or information contained within the body of this dictation should be directly addressed to the provider for clarification Admission and Anticipated Discharge Date Admission Date: May 23, 2025 Subjective Patient seen and examined at bedside. She reports that she still has intermittent nausea/vomiting. Similar to previous day. No fever or chills. Pain is overall improved as well Review of Systems Review of Systems: All systems reviewed & are unremarkable except as noted in Subjective Physical Exam Physical Exam: Constitutional: Appears comfortable; not in distress. Respiratory: normal respiratory effort, lungs clear to auscultation, no wheeze, rales, rhonchi. Normal insp/exp effort, no accessory muscle use Cardiovascular: RRR, no murmur, no edema Vessels: no JVD or carotid bruit Chest: Chao catheter in place; no surrounding erythema. Abdomen: normal bowel sounds, soft, nontende. G-tube in place Musculoskeletal: no cyanosis or clubbing, extremities motor strength 5/5 Skin: no rashes, warm and dry normal turgor Neurologic: PERRL, EOMI, accommodation nl, no face palsy, no dysarthria CN's II- XI intact bilaterally and moves all extremities Results & Data Results & Data Vital Signs (Past 12 Hours) Vital Signs Temp Pulse Resp BP Pulse Ox O2 Del Method 05/24/25 07:19 37.0 C 86 16 97/63 L 95 Room Air 05/23/25 23:23 36.8 C 87 15 104/71 98 Room Air
[2025-05-24] MEDS: MUPIROCIN 2% OINT 22 GM TUBE EXT SCH (17:10)
--- NOTE | 2025-05-25 14:17 | Hospitalist Progress Note ---
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, POTS, chronic pain syndrome, TPN dependence, chronic GI dysmotility currently being followed at [place], recurrent central line infections and bacteremia, and other problems listed below who presents to the ED for evaluation of nausea, vomiting, chills 2/2 fungemia/allergic reaction to micafungin Hx of Fungemia ( Sarah Glabrata) H/O of GI dysmotility on TPN via Chao catheter; possible adverse reaction to Micafungin -- Blood cultures from 05/06/25: Grew Streptococcus mitis/oralis group, Staph epidermidis, Sarah glabrata, Sarah tropicalis -- Blood cultures from 05/10/2025 growing Enterobacter cloacae complex, Klebsiella, Enterobacter -- Chao catheter tip cultures--preliminary culture grew Enterobacter cloacae complex, Klebsiella --Central line catheter tip culture negative to date -- Repeat blood cultures 05/12/2025: Negative to date -- Repeat fungal cultures: No growth to date --S/P Chao's catheter removed on 05/11/2025 --S/P Chao's catheter placement on 05/17/2025 Plan: -Plan to continue Caspofungin, vancomycin, ertapenem unitl 05/25/2025 -increase zyprexa to 5mg -Continue TPN -abx finish tonight, discharge in AM -patient recently started on erythromycin; has follow-up with Dr. Pablo Camp pediatrician/medical doctor at [facility]: Consideration for J-tube. Has follow- up appointment on May 27, 2025 at 2:20 PM History of POTS- on TPN I spent a total of 50 minutes in direct patient care, including [id number] time with the patient and/or family, reviewing medical records, ordering and reviewing diagnostic tests, and coordinating care with other healthcare providers. This time includes: history taking, physical examination, medical decision making, counseling, ECG interpretation, imaging interpretation, lab interpretation, orders, and education, excluding time spent in the performance of separately billed services. Admission and Anticipated Discharge Date Admission Date: May 23, 2025 Subjective Patient seen and examined at bedside. Patient doing well today, looking foward to discharge tomorrow. States still having nausea, would like to give it one more day for better control and get her last IV abx infusions tonight. Review of Systems Review of Systems: CONSTITUTIONAL: Patient denies fevers, chills, sweats and weight changes. EYES: Patient denies any visual symptoms. EARS, NOSE, AND THROAT: No difficulties with hearing. No symptoms of rhinitis or sore throat. CARDIOVASCULAR: Patient denies chest pains, palpitations, orthopnea and paroxysmal nocturnal dyspnea. RESPIRATORY: No dyspnea on exertion, no wheezing or cough. GI: nausea, vomiting : No urinary hesitancy or dribbling. No nocturia or urinary frequency. No abnormal urethral discharge. MUSCULOSKELETAL: No myalgias or arthralgias. NEUROLOGIC: No chronic headaches, no seizures. Patient denies numbness, tingling or weakness. PSYCHIATRIC: Patient denies problems with mood disturbance. No problems with anxiety. ENDOCRINE: No excessive urination or excessive thirst. DERMATOLOGIC: Patient denies any rashes or skin changes. Physical Exam Physical Exam: Gen: A&O 3 NAD HEENT: NCAT, EOMI, not icteric. External ears normal. No rhinorrhea. Moist mucous membranes. Neck: Supple, full range of motion, no observable masses, No meningeal sign. Lungs: No Respiratory distress. CV: tachycardic, regular rhythm Abdomen: Soft, nondistended, No rebound tenderness. MSK: No joint swelling, no redness. Skin: No rashes, petechiae, lesions. Normal color per patient. Neuro: Normal Gait, Grossly intact. Psych: Appropriate for situation. Results & Data Results & Data Vital Signs (Past 12 Hours) Vital Signs Temp Pulse Resp BP Pulse Ox O2 Del Method 05/25/25 07:21 36.8 C 94 H 18 100/65 97 Room Air Medications Administered Acetaminophen (Acetaminophen 325 Mg Tab) 650 mg PO Q4H PRN PRN Reason: pain/fever Stop: 06/20/25 15:27 Last Admin: 05/21/25 21:00 Dose: 650 mg Documented By: rodney Baclofen (Baclofen 10 Mg Tab) 10 mg PO BID ZULY Stop: 06/20/25 20:59 Last Admin: 05/25/25 09:03 Dose: 10 mg Documented By: Admin: 05/24/25 20:34 Dose: 10 mg Documented By: Admin: 05/24/25 08:30 Dose: 10 mg Documented By: Admin: 05/23/25 20:49 Dose: 10 mg Documented By: Admin: 05/23/25 08:28 Dose: 10 mg Documented By: Admin: 05/22/25 20:58 Dose: 10 mg Documented By: rodney Admin: 05/22/25 09:00 Dose: 10 mg Documented By: Admin: 05/21/25 21:00 Dose: 10 mg Documented By: rodney Duloxetine HCl (Duloxetine Hcl 20 Mg Cap) 20 mg PO DAILY ZULY Stop: 06/21/25 08:59 Last Admin: 05/25/25 09:03 Dose: 20 mg Documented By: Admin: 05/24/25 08:30 Dose: 20 mg Documented By: Admin: 05/23/25 08:29 Dose: 20 mg Documented By: Admin: 05/22/25 09:00 Dose: 20 mg Documented By: JAYDEN Erythromycin Ethylsuccinate (Erythromycin Ethylsucc Susp 200 Mg/5 Ml 100 Ml Btl) 100 mg PO TID ZULY Stop: 06/20/25 20:59 Last Admin: 05/25/25 09:12 Dose: 100 mg Documented By: Admin: 05/24/25 20:41 Dose: 100 mg Documented By: Admin: 05/24/25 14:00 Dose: 100 mg Documented By: Admin: 05/24/25 08:42 Dose: 100 mg Documented By: Admin: 05/23/25 20:53 Dose: 100 mg Documented By: Admin: 05/23/25 13:09 Dose: 100 mg Documented By: Admin: 05/23/25 08:34 Dose: 100 mg Documented By: Admin: 05/22/25 22:08 Dose: 100 mg Documented By: rodney Admin: 05/22/25 14:24 Dose: 100 mg Documented By: Admin: 05/22/25 09:49 Dose: 100 mg Documented By: Admin: 05/21/25 21:00 Dose: 100 mg Documented By: rodney Famotidine (Famotidine 20 Mg Tab) 20 mg PO BID ZULY Stop: 06/20/25 20:59 Last Admin: 05/25/25 09:07 Dose: 20 mg Documented By: Admin: 05/24/25 20:41 Dose: 20 mg Documented By: Admin: 05/24/25 08:30 Dose: 20 mg Documented By: Admin: 05/23/25 20:49 Dose: 20 mg Documented By: Admin: 05/23/25 08:28 Dose: 20 mg Documented By: Admin: 05/22/25 20:56 Dose: 20 mg Documented By: snc Admin: 05/22/25 09:00 Dose: 20 mg Documented By: Admin: 05/21/25 21:00 Dose: 20 mg Documented By: rodney Heparin Sodium (Porcine) (Heparin Sod 5,000 Unit/0.5 Ml Vial) 5,000 units SQ Q8 ZULY Stop: 06/20/25 21:59 Last Admin: 05/25/25 05:54 Dose: 5,000 units Documented By: Admin: 05/24/25 21:06 Dose: 5,000 units Documented By: Admin: 05/24/25 14:00 Dose: 5,000 units Documented By: Admin: 05/24/25 05:33 Dose: 5,000 units Documented By: Admin: 05/23/25 20:56 Dose: 5,000 units Documented By: Admin: 05/23/25 13:09 Dose: 5,000 units Documented By: Admin: 05/23/25 05:54 Dose: 5,000 units Documented By: snc Admin: 05/22/25 20:56 Dose: 5,000 units Documented By: snc Admin: 05/22/25 14:26 Dose: 5,000 units Documented By: Admin: 05/22/25 06:09 Dose: 5,000 units Documented By: Admin: 05/21/25 21:49 Dose: 5,000 units Documented By: rodney Hydromorphone HCl (Hydromorphone Inj 0.5 Mg/0.5 Ml Syr) 0.5 mg IV Q6H PRN PRN Reason: Pain Stop: 06/04/25 15:28 Last Admin: 05/25/25 12:23 Dose: 0.5 mg Documented By: Admin: 05/25/25 05:55 Dose: 0.5 mg Documented By: Admin: 05/24/25 23:20 Dose: 0.5 mg Documented By: Admin: 05/24/25 16:42 Dose: 0.5 mg Documented By: Admin: 05/24/25 10:22 Dose: 0.5 mg Documented By: Admin: 05/24/25 03:52 Dose: 0.5 mg Documented By: Admin: 05/23/25 20:49 Dose: 0.5 mg Documented By: Admin: 05/23/25 14:26 Dose: 0.5 mg Documented By: Admin: 05/23/25 08:35 Dose: 0.5 mg Documented By: Admin: 05/22/25 20:57 Dose: 0.5 mg Documented By: snc Admin: 05/22/25 08:56 Dose: 0.5 mg Documented By: Admin: 05/22/25 01:48 Dose: 0.5 mg Documented By: rodney Admin: 05/21/25 16:21 Dose: 0.5 mg Documented By: nicole Hydroxyzine HCl (Hydroxyzine Hcl 25 Mg Tab) 50 mg PO QID PRN PRN Reason: Anxiety Stop: 06/20/25 17:10 Last Admin: 05/24/25 08:33 Dose: 50 mg Documented By: Admin: 05/23/25 08:35 Dose: 50 mg Documented By: Admin: 05/22/25 13:24 Dose: 50 mg Documented By: JAYDEN Caspofungin 50 mg/ Sodium (Chloride) 260 mls @ 250 mls/hr IV Q24H ZULY; Protocol Stop: 05/25/25 23:59 Last Infusion: 05/24/25 15:26 Dose: Infused Documented By: Admin: 05/24/25 14:16 Dose: 250 mls/hr Documented By: Infusion: 05/23/25 14:31 Dose: Infused Documented By: Admin: 05/23/25 13:09 Dose: 250 mls/hr Documented By: Infusion: 05/22/25 15:49 Dose: Infused Documented By: Admin: 05/22/25 14:21 Dose: 250 mls/hr Documented By: Infusion: 05/21/25 15:02 Dose: Infused Documented By: nicole Admin: 05/21/25 13:56 Dose: 250 mls/hr Documented By: HANG Vancomycin HCl 750 mg/ Sodium (Chloride) 265 mls @ 200 mls/hr IV Q8H ZULY Stop: 05/25/25 23:59 Last Infusion: 05/25/25 10:48 Dose: Infused Documented By: Admin: 05/25/25 09:14 Dose: 200 mls/hr Documented By: Infusion: 05/25/25 01:20 Dose: Infused Documented By: Admin: 05/24/25 23:57 Dose: 200 mls/hr Documented By: Infusion: 05/24/25 17:07 Dose: Infused Documented By: Admin: 05/24/25 15:42 Dose: 200 mls/hr Documented By: Infusion: 05/24/25 10:09 Dose: Infused Documented By: Admin: 05/24/25 08:29 Dose: 200 mls/hr Documented By: Infusion: 05/24/25 01:29 Dose: Infused Documented By: Admin: 05/24/25 00:02 Dose: 200 mls/hr Documented By: Infusion: 05/23/25 17:12 Dose: Infused Documented By: Admin: 05/23/25 15:31 Dose: 200 mls/hr Documented By: Infusion: 05/23/25 09:52 Dose: Infused Documented By: Admin: 05/23/25 08:24 Dose: 200 mls/hr Documented By: Infusion: 05/23/25 01:26 Dose: Infused Documented By: snc Admin: 05/23/25 00:00 Dose: 200 mls/hr Documented By: snc Infusion: 05/22/25 17:59 Dose: Infused Documented By: Admin: 05/22/25 16:23 Dose: 200 mls/hr Documented By: Infusion: 05/22/25 10:31 Dose: Infused Documented By: Admin: 05/22/25 09:07 Dose: 200 mls/hr Documented By: Infusion: 05/22/25 01:44 Dose: Infused Documented By: snc Admin: 05/22/25 00:22 Dose: 200 mls/hr Documented By: snc Infusion: 05/21/25 17:56 Dose: Infused Documented By: Admin: 05/21/25 16:21 Dose: 200 mls/hr Documented By: nicole Ertapenem (Invanz 1000mg) 1,000 mg in 10 mls @ 2 mls/min IV Q24H ZULY Stop: 05/25/25 23:59 Last Admin: 05/24/25 15:30 Dose: 2 mls/min Documented By: Admin: 05/23/25 15:29 Dose: 2 mls/min Documented By: Admin: 05/22/25 15:51 Dose: 2 mls/min Documented By: Admin: 05/21/25 16:22 Dose: 2 mls/min Documented By: nicole Lorazepam 0.5 mg/ Syringe 0.5 mls @ 2 mls/min IV Q8H PRN PRN Reason: Anxiety/Agitation Stop: 06/20/25 17:57 Last Admin: 05/24/25 15:43 Dose: 2 mls/min Documented By: Admin: 05/24/25 00:16 Dose: 2 mls/min Documented By: Admin: 05/23/25 15:23 Dose: 2 mls/min Documented By: Admin: 05/23/25 00:17 Dose: 2 mls/min Documented By: snc Admin: 05/22/25 10:22 Dose: 2 mls/min Documented By: Admin: 05/21/25 18:09 Dose: 2 mls/min Documented By: JAYDEN Promethazine HCl (Phenergan) 6.25 mg in 50.25 mls @ 201 mls/hr IV Q6H PRN PRN Reason: Nausea And Vomiting Stop: 06/22/25 09:28 Last Infusion: 05/25/25 10:41 Dose: Infused Documented By: Admin: 05/25/25 09:02 Dose: 201 mls/hr Documented By: Infusion: 05/24/25 21:06 Dose: Infused Documented By: Admin: 05/24/25 20:50 Dose: 201 mls/hr Documented By: Infusion: 05/24/25 14:27 Dose: Infused Documented By: Admin: 05/24/25 13:58 Dose: 201 mls/hr Documented By: Infusion: 05/24/25 06:15 Dose: Infused Documented By: Admin: 05/24/25 05:58 Dose: 201 mls/hr Documented By: Infusion: 05/23/25 14:43 Dose: Infused Documented By: Infusion: 05/23/25 14:25 Dose: 201 mls/hr Documented By: Infusion: 05/23/25 13:27 Dose: 0 mls/hr Documented By: Admin: 05/23/25 13:23 Dose: 201 mls/hr Documented By: UMM Amino Acids/Dextrose 1,035 ml/ (Nutrition (Parenteral)) 1,035 mls @ 43 mls/hr IV .Q24H ZULY; Protocol Stop: 05/25/25 15:59 Last Admin: 05/24/25 15:43 Dose: 43 mls/hr Documented By: UMM Co-signed By: EDY Loratadine (Loratadine 10 Mg Tab) 10 mg PO DAILY ZULY Stop: 06/21/25 08:59 Last Admin: 05/25/25 09:03 Dose: 10 mg Documented By: Admin: 05/24/25 08:31 Dose: 10 mg Documented By: Admin: 05/23/25 08:30 Dose: 10 mg Documented By: Admin: 05/22/25 08:59 Dose: 10 mg Documented By: JAYDEN Montelukast Sodium (Montelukast Sodium 10 Mg Tablet) 10 mg PO HS ZULY Stop: 06/20/25 20:59 Last Admin: 05/24/25 20:34 Dose: 10 mg Documented By: Admin: 05/23/25 20:49 Dose: 10 mg Documented By: Admin: 05/22/25 20:58 Dose: 10 mg Documented By: rodney Admin: 05/21/25 21:01 Dose: 10 mg Documented By: rodney Mupirocin (Mupirocin 2% Oint 22 Gm Tube) 1 appln EXT BID ZULY Stop: 06/23/25 16:44 Last Admin: 05/25/25 09:04 Dose: 1 appln Documented By: Admin: 05/24/25 20:36 Dose: 1 appln Documented By: Admin: 05/24/25 17:10 Dose: 1 appln Documented By: UMM Ondansetron HCl (Ondansetron Inj 2 Mg/Ml 2 Ml Vial) 4 mg IV Q6H PRN PRN Reason: Nausea Stop: 06/20/25 15:27 Last Admin: 05/25/25 12:23 Dose: 4 mg Documented By: Admin: 05/25/25 05:54 Dose: 4 mg Documented By: Admin: 05/24/25 23:19 Dose: 4 mg Documented By: Admin: 05/24/25 15:30 Dose: 4 mg Documented By: Admin: 05/24/25 08:42 Dose: 4 mg Documented By: Admin: 05/23/25 23:06 Dose: 4 mg Documented By: Admin: 05/23/25 15:23 Dose: 4 mg Documented By: Admin: 05/23/25 08:36 Dose: 4 mg Documented By: Admin: 05/22/25 20:57 Dose: 4 mg Documented By: rodney Admin: 05/22/25 08:48 Dose: 4 mg Documented By: Admin: 05/21/25 23:01 Dose: 4 mg Documented By: snc Admin: 05/21/25 16:21 Dose: 4 mg Documented By: nicole
[2025-05-25 23:10] VITALS: RESP 16
[2025-05-26 07:47] VITALS: BP 94/59; PULSE 86; TEMP 98.1; O2SAT 95
[2025-05-26 08:35] LABS: Anion Gap 7.0 (3-11); Blood Urea Nitrogen 18.0 mg/dl (6-23); Calcium 10.1 mg/dl (8.6-10.3); Carbon Dioxide 29.0 mmol/L (21-32); Chloride 102.0 mmol/L (98-107); Creatinine Clr Calc Pharmacy 95.7 ml/min; Glucose 81.0 mg/dl (70-99(Fasting)); Magnesium 1.9 mg/dl (1.7-2.4); Potassium 4.1 mmol/L (3.5-5.1); Sodium 138.0 mmol/L (136-145); Triglycerides 320.0 mg/dl (0-150)
--- NOTE | 2025-05-26 16:35 | Discharge Summary ---
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, POTS, chronic pain syndrome, TPN dependence, chronic GI dysmotility currently being followed at [place], recurrent central line infections and bacteremia, and other problems listed b lorraine who presents to the ED for evaluation of nausea, vomiting, chills 2/2 fungemia/allergic reaction to micafungin Hx of Fungemia ( Sarah Glabrata) H/O of GI dysmotility on TPN via Chao catheter; possible adverse reaction to Micafungin -- Blood cultures from 05/06/25: Grew Streptococcus mitis/oralis group, Staph epidermidis, Sarah glabrata, Sarah tropicalis -- Blood cultures from 05/10/2025 growing Enterobacter cloacae complex, Klebsiella, Enterobacter -- Chao catheter tip cultures--preliminary culture grew Enterobacter cloacae complex, Klebsiella --Central line catheter tip culture negative to date -- Repeat blood cultures 05/12/2025: Negative to date -- Repeat fungal cultures: No growth to date --S/P Chao's catheter removed on 05/11/2025 --S/P Chao's catheter placement on 05/17/202505/26 - clinically stable, feeling better, denies new symptoms -completed Caspofungin, vancomycin, ertapenem 05/25/2025 -increased zyprexa to 5mg at HS -Continue TPN -patient recently started on erythromycin; has follow-up with Dr. Pablo Camp lsw at [facility]: Consideration for J-tube. Has follow- up appointment on May 27, 2025 at 2:20 PM History of POTS Ehler Danlo Syndrome - on TPN Notes For Next Care Provider Medication Changes From Visit Zyprexa increased to 5mg HS Admission HPI Per Admitting Provider History obtained from interview the patient, discussing with the patient's mother, ED provider and chart review. Patient was hospitalized for over 2 weeks for blood stream infection due to central venous catheter; was discharged yesterday home on antibiotics and antifungal. She was discharged on IV vancomycin 750 mg, ertapenem and micafungin. Patient was placed on micafungin after infectious disease recommended alternative to caspofungin(as it was not available for home infusion). Patient reports that after receiving micafungin; she started to have perioral paresthesia, felt a lump in her throat. She did not have any shortness of breath, rash, chest pain, visual changes, fever, chills or abdominal pain. She does report nausea and pain at the insertion site of the Chao. Initial plan was to give Caspofungin in the ED for today and arrangements were made at the [facility] for patient to Caspofungin. However, given patient's ongoing nausea, pain; referred for observation. Admission Exam Per Admitting Provider Constitutional: Appears comfortable; not in distress. Respiratory: normal respiratory effort, lungs clear to auscultation, no wheeze, rales, rhonchi. Normal insp/exp effort, no accessory muscle use Cardiovascular: RRR, no murmur, no edema Vessels: no JVD or carotid bruit Chest: Chao catheter in place; no surrounding erythema. Abdomen: normal bowel sounds, soft, nontende. G-tube in place Musculoskeletal: no cyanosis or clubbing, extremities motor strength 5/5 Skin: no rashes, warm and dry normal turgor Neurologic: PERRL, EOMI, accommodation nl, no face palsy, no dysarthria CN's II- XI intact bilaterally and moves all extremities Discharge Exam General- oriented x 3, not in distress, speaks in sentences with no effort or accessory muscle use Eyes- anicteric Neck- no JVD Lungs- clear breath sounds bilaterally, no rales/wheezes Heart- normal rate, regular rhythm; no murmurs Abdomen- normal bowel sounds, nondistended, soft, nontender Extremities- no pretibial edema, no calf tenderness Neuro- alert, oriented x 3; no gross focal neurologic deficits Skin- warm & dry Updated Medication List Medication Instructions Recorded Confirmed Type baclofen 10 mg tablet 10 mg PO BID 04/09/25 05/21/25 History cholecalciferol (vitamin D3) 1,250 1,250 mcg PO WK 04/09/25 05/21/25 History mcg (50,000 unit) tablet cyanocobalamin (vitamin B-12) 1,000 mcg IM MONTHLY 04/09/25 05/21/25 History 1,000 mcg/mL injection solution duloxetine 20 mg capsule,delayed 20 mg PO DAILY 04/09/25 05/21/25 History release famotidine 20 mg tablet 20 mg PO BID 04/09/25 05/21/25 History linaclotide 145 mcg capsule 145 mcg PO DAILY PRN Constipation 04/09/25 05/21/25 History loratadine 10 mg tablet 10 mg PO DAILY 04/09/25 05/21/25 History montelukast 10 mg tablet 10 mg PO HS 04/09/25 05/21/25 History erythromycin ethylsuccinate 200 100 mg PO TID 05/06/25 05/21/25 History mg/5 mL oral powder for suspension hydroxyzine HCl 50 mg tablet 50 mg PO QID PRN Anxiety 05/06/25 05/21/25 History prucalopride 2 mg tablet 2 mg PO DAILY 05/06/25 05/21/25 History ondansetron 8 mg disintegrating 8 mg PO Q8H PRN Nausea And 05/20/25 05/21/25 Rx tablet Vomiting #30 tabs mupirocin 2 % topical ointment 1 applic EXT BID 4 days #22 grams 05/26/25 Rx olanzapine 2.5 mg tablet 5 mg (2 x 2.5 mg) PO HS #0 tabs 05/26/25 05/21/25 Rx Hospital Stay Data Pending Results Patient Have Any Pending Studies at Discharge: No Discharge Instructions Given to Patient (Per Discharging Provider) PLEASE REFER TO YOUR NEW MEDICATION LIST AND FOLLOW INSTRUCTIONS CAREFULLY. YOUR NEW MEDICATION INCLUDE: Increase Zyprexa to 5mg at bedtime PLEASE CALL YOUR PRIMARY CARE PHYSICIAN OR RETURN TO THE ER IF WITH WORSENING OF SYMPTOMS, INCLUDING abdominal pain, nausea/vomiting, fever/chills, dizziness, weakness, etc FOLLOW UP WITH PRIMARY CARE PHYSICIAN OUTLINED ABOVE. Total Time Total Time Spent Total Time Spent (In Minutes): 35 minutes
--- NOTE | 2025-05-27 10:00 | Electrocardiogram Report ---
Test Reason : Blood Pressure : */* mmHG Vent. Rate : 77 BPM Atrial Rate : 77 BPM P-R Int : 140 ms QRS Dur : 74 ms QT Int : 394 ms P-R-T Axes : 68 75 42 degrees QTcB Int : 445 ms Poor data quality, interpretation may be adversely affected Normal sinus rhythm Septal infarct , age undetermined Abnormal ECG When compared with ECG of 06-May-2025 07:00, Vent. rate has decreased by 46 bpm Septal infarct is now Present Confirmed by Raj Zuñiga ([id number]) on 05/27/2025 9:59:33 AM Referred By: REFERRED SELF Confirmed By: Raj Zuñiga
--- NOTE | 2025-05-27 13:52 | Operative Report ---
[facility] Post Operative Report Pre & Post Diagnosis 05/11/2025 Central line associated infection (fungemia) I identified the patient and participated in the time-out.: Yes Procedure Removal of right internal jugular tunneled central venous line. Surgeon Ismael Espana MD Radiology Rn Humera Whitman PA-C Estimated Blood Loss 5 Findings Consistent with Post-Op Diagnosis Specimens Catheter tip for culture Anesthesia Type MAC Disposition Accompanied Patient To Recovery: Yes Disposition: Recovery Room Indications Patient with recently replaced tunneled central venous line. Now with fungemia. Catheter removal has been requested. Description of Procedure A timeout was performed and the patient was identified the procedure verified. The patient was maintained on her antimicrobial regimen. Monitored anesthetic care was provided by the anesthesia team. The previously placed right sided tunneled central venous line and surrounding areas were prepped and draped in usual sterile fashion. 1% lidocaine local anesthetic was used. The suture holding the catheter to the skin was cut and soft tissues were mobilized to free up the cuff. Once this was completed, the catheter removed easily and pressure was held over the venous puncture site to achieve hemostasis. The catheter tip was sent for appropriate bacteriologic analysis. The exit site was covered with gauze and a Tegaderm. Patient was taken the recovery area in stable condition and tolerated procedure well without immediate complication. I attest to the content of the Intraoperative Record and any orders documented therein. Any exceptions are noted below.
== END 2025-05-26 11:50 | disposition home or self-care (01) ==
LOC: ED 12:50 → 3W 12:50 → SUATTDRO 05-23 09:44

== ENCOUNTER 2025-05-28 21:40 | Inpatient (IN) ==
--- NOTE | 2025-05-28 22:02 | Emergency Department Note ---
History of Present Illness General Chief complaint: Illness Stated complaint: NAUSEA, VOMITING, HEADACHE, DIZZY, TACHYCARDIA History of Present Illness Maximum Pain Intensity: 8 29-year-old female with PMH Jaqui-Danlos syndrome, POTS, chronic pain syndrome, TPN dependence, chronic GI dysmotility currently being followed at [facility], recurrent central line infections and bacteremia, he was discharged home in facility 2 days ago and has completed her antibiotics and antifungals presents back to the ER for nausea, vomiting, dizziness, headache with subjective fever and chills and night sweats. Patient states she was feeling better upon discharge but today started to feel ill again. She is not sure if she is dehydrated. She has a lot of pain from her new central line insertion site. Patient denies cough, congestion, diarrhea, urinary symptoms. Mother is present who gives the history also. Patient called her [facility] doctor and was started on a new medication yesterday. Home Medications Medication Instructions Recorded Confirmed Type cholecalciferol (vitamin D3) 1,250 1,250 mcg PO WK 04/09/25 05/28/25 History mcg (50,000 unit) tablet duloxetine 20 mg capsule,delayed 20 mg PO DAILY 04/09/25 05/28/25 History release famotidine 20 mg tablet 20 mg PO BID 04/09/25 05/28/25 History loratadine 10 mg tablet 10 mg PO DAILY 04/09/25 05/28/25 History montelukast 10 mg tablet 10 mg PO HS 04/09/25 05/28/25 History hydroxyzine HCl 50 mg tablet 50 mg PO QID PRN Anxiety 05/06/25 05/28/25 History prucalopride 2 mg tablet 2 mg PO DAILY 05/06/25 05/28/25 History ondansetron 8 mg disintegrating 8 mg PO Q8H PRN Nausea And 05/20/25 05/28/25 Rx tablet Vomiting #30 tabs mupirocin 2 % topical ointment 1 applic EXT BID 4 days #22 grams 05/26/25 05/28/25 Rx Dextrose-Sodium Chloride 1,000 ml IV DAILY 05/28/25 05/28/25 History Tpn Infusion 2,800 ml IV DIRECTED 05/28/25 05/28/25 History anticoag citrate phos dextrose 1 ml miscellaneous Q24H 05/28/25 05/28/25 History 2.63 gram-222 mg/100 mL solution folic acid 5 mg/mL injection 1 mg IV DIRECTED 05/28/25 05/28/25 History solution heparin lock flush (porcine) 10 10 unit IV DIRECTED 05/28/25 05/28/25 History unit/mL intravenous solution mvi, adult no.4 with vit K 3300 10 ml IV DAILY 05/28/25 05/28/25 History unit-150 mcg/10 mL intravenous solution (Infuvite Adult) olanzapine 5 mg tablet 5 mg PO HS 05/28/25 05/28/25 History sodium chloride 0.9 % (flush) 10 ml IV DIRECTED 05/28/25 05/28/25 History thiamine HCl (vitamin B1) 100 100 mg IV DIRECTED 05/28/25 05/28/25 History mg/mL injection solution vitamin A 3,000 mcg (10,000 unit) 3,000 mcg PO DAILY 05/28/25 05/28/25 History capsule Allergies Allergy/AdvReac Type Severity Reaction Status Date / Time diphenhydramine Allergy Severe Urticaria, Verified 05/28/25 22:17 [From Benadryl] severe anxiety, jittery prochlorperazine Allergy Severe Anaphylaxis Verified 05/28/25 22:17 [From Compazine] adhesive Allergy Intermediate Redness, Verified 05/28/25 22:17 swelling banana Allergy Intermediate Itching Verified 05/28/25 22:17 bee pollen Allergy Intermediate ITCHY Verified 05/28/25 22:17 EYES, SNEEZING, CONGESTION cantaloupe Allergy Intermediate Itching Verified 05/28/25 22:17 egg Allergy Intermediate EGG Verified 05/28/25 22:17 WHITES--ITCHING gluten Allergy Intermediate Hives, GI Verified 05/28/25 22:17 upset peanut Allergy Intermediate Itchy Verified 05/28/25 22:17 throat pollen extracts Allergy Intermediate Itchy Verified 05/28/25 22:17 eyes, sneezing, congestion sesame seed Allergy Intermediate Itching Verified 05/28/25 22:17 strawberry Allergy Intermediate Itching Verified 05/28/25 22:17 tomato Allergy Intermediate Itching Verified 05/28/25 22:17 tree nut Allergy Intermediate Itchy Verified 05/28/25 22:17 throat watermelon Allergy Intermediate Itching Verified 05/28/25 22:17 chlorhexidine Allergy Unknown Unknown Verified 05/28/25 22:17 iron [From Venofer] AdvReac Severe Abdominal Verified 05/28/25 22:17 Pain fentanyl AdvReac Intermediate nausea and Verified 05/06/25 10:10 vomiting lactose AdvReac Intermediate Gastrointestinal Verified 05/28/25 22:17 Upset Latex, Natural Rubber AdvReac Intermediate Redness, Verified 05/28/25 22:17 swollen, itchy micafungin AdvReac Unknown Unknown Verified 05/28/25 22:17 polyurethane Allergy Intermediate Hives Uncoded 05/28/25 22:17 polyurethane power port Allergy Mild Itching Uncoded 05/28/25 22:17 malabar nut tree Allergy Unknown Unknown Uncoded 05/28/25 22:17 Past Med/Surg History Problem List (Updated 05/29/25 @ 01:28 by Nancy Godfrey PA-C) Pneumonia (Acute) Headache (Acute) Dizziness (Acute) Nausea & vomiting (Acute) Infusion reaction (Acute) Fungemia Acute hypokalemia (Acute) Transaminitis (Acute) Ileus Transaminitis Chronic pain syndrome E. coli bacteremia Severe sepsis with acute organ dysfunction Sepsis (Acute) Pneumonitis (Acute) Acute dehydration (Acute) Severe protein-calorie malnutrition (Acute) History of central line-associated bloodstream infection (CLABSI) Bacteremia due to methicillin resistant Staphylococcus epidermidis Infection of venous access port (Acute) Sepsis (Acute) MSSA bacteremia Infection complicating venous access device Bacterial sepsis CLABSI (central line-associated bloodstream infection) Cellulitis (Acute) Bacteremia due to Enterococcus Sepsis Tachycardia (Acute) Central venous catheter in place (Acute) broke- clamped in ER, taped around site Fungemia DVT prophylaxis Encounter for pre-operative examination (~02/07/23) Gastrointestinal dysmotility Close exposure to COVID-19 virus (Acute) Iron deficiency (Acute) Symptomatic anemia (Acute) Chronic pain POTS (postural orthostatic tachycardia syndrome) History of esophagogastroduodenoscopy (EGD) Severe malnutrition (Acute) Abdominal pain, chronic, epigastric (Acute) chronic On total parenteral nutrition (TPN) (Acute) Jaqui-Danlos disease Dx several years ago Medical History Gastrostomy tube in place Anxiety Gastrointestinal dysmotility Reactive hypoglycemia dexcom present to left arm Anemia Neuropathy legs Gastroparesis History of COVID-19 02/2022, not hospitalized 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 Jejunostomy tube present placed October 2020 Surgical History S/P gastrostomy History of removal of Port-a-Cath (05/21/24) Infusaport Removal - Left side(Left) - Alton Garcia DO, FACS History of myringotomy History of surgery (06/24/21) Removal of Right Tunneled Central Line in Internal Jugular Catheter H/O wisdom tooth extraction H/O wrist surgery right S/P knee surgery Left Family History Other Adopted Social History Smoking Status: Never smoker Second Hand Exposure: No; Do You Dip or Chew Tobacco: No; Hx Alcohol Use: No Hx Substance Use: No Preferred Language: German Communication Ability: Effective [employer]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 Beliefs That Will Affect Care: None Current Living Situation: Parent Current Living Situation Comment: Lives w/ family at home Feels Safe at Home: Yes Assistive Devices: None Review of Systems A total of 10 systems reviewed and were otherwise negative Physical Exam Vital Signs Vital Signs - 24 hr 05/28/25 21:43 05/28/25 23:01 05/28/25 23:15 Temperature 36.8 C Temperature Source Temporal Artery Scan Pulse Rate 109 H 103 H Pulse Rate [Apical] 109 H Pulse Rhythm [Apical] Regular Pulse Strength [Apical] Normal Respiratory Rate 20 24 Respiratory Effort / Characteristics Non-Labored Spontaneous Non-Labored Respiratory Depth Normal Normal Respiratory Pattern Regular Blood Pressure 127/94 Blood Pressure [Right Arm] 124/92 Blood Pressure Mean 105 Blood Pressure Mean [Right Arm] 102 Blood Pressure Position [Right Arm] Lying Pulse Oximetry 99 96 Oxygen Delivery Method Room Air Room Air Sepsis Recent Fever Within 48 Hours No Sepsis New/Unexplained Change in Mental Status N/A Sepsis Action Taken by Nursing No Action Required 05/28/25 23:56 05/29/25 01:00 Temperature Temperature Source Pulse Rate Pulse Rate [Apical] 116 H 111 H Pulse Rhythm [Apical] Regular Regular Pulse Strength [Apical] Normal Normal Respiratory Rate 21 16 Respiratory Effort / Characteristics Non-Labored Non-Labored Respiratory Depth Normal Normal Respiratory Pattern Regular Regular Blood Pressure Blood Pressure [Right Arm] 103/77 104/67 Blood Pressure Mean Blood Pressure Mean [Right Arm] 85 79 Blood Pressure Position [Right Arm] Lying Lying Pulse Oximetry 99 100 Oxygen Delivery Method Room Air Room Air Sepsis Recent Fever Within 48 Hours Sepsis New/Unexplained Change in Mental Status Sepsis Action Taken by Nursing VITALS: Vitals are noted on the nurse's note and reviewed by myself. Vital signs reviewed. GENERAL: Pleasant female speaking in full sentences, in no acute distress, nondiaphoretic, well-developed well-nourished. SKIN: Right upper chest with central line placed with no obvious signs of infection. The rest of the skin was without rashes, erythema, edema, or bruising. There is no tenting of the skin. Capillary reflex less than 2 seconds. HEAD: Normocephalic atraumatic. EARS: External auditory canals clear EYES: Pupils equal round and reactive to light and accommodation. Conjunctivae without injection, sclerae without icterus. Extraocular movements intact. NOSE: Patent, no discharge. MOUTH: Mucous membranes moist. Pharynx without erythema or exudate. Uvula midline. Airway patent. Tongue does not deviate. NECK: Supple without nuchal rigidity. No lymphadenopathy. No thyromegaly. Cervical spine is nontender. No JVD. HEART: Regular rate and rhythm LUNGS: Clear to auscultation bilaterally without wheezes, rales or rhonchi. No retractions or accessory muscle use. ABDOMEN: Positive bowel sounds x 4. Normal tympanic percussion. Soft, mild diffuse tenderness unchanged per patient, G-tube in place, without masses or organomegaly. Davenport sign negative. No guarding or rebound tenderness. No CVA tenderness MUSCULOSKELETAL: No muscle atrophy, erythema, or edema noted. NEURO: Patient was alert and oriented to person place and time. Normal sensation to light and sharp touch. No focal neurological deficits. Course Administered Medications Lactated Ringer's (Lr) 1,000 mls @ 80 mls/hr IV .[id number] ZULY Stop: 06/01/25 00:14 Last Infusion: 05/29/25 01:24 Dose: 0 mls/hr Documented By: dean Admin: 05/29/25 01:23 Dose: 80 mls/hr Documented By: vgr Discontinued Medications Hydromorphone HCl (Hydromorphone Inj 0.5 Mg/0.5 Ml Syr) 0.5 mg IV Q15M PRN PRN Reason: Pain Stop: 06/11/25 21:53 Last Admin: 05/29/25 00:24 Dose: 0.5 mg Documented By: [email or web address] Admin: 05/28/25 22:50 Dose: 0.5 mg Documented By: TIM Sodium Chloride (Nss) 1,000 mls @ 999 mls/hr IV .Q1H1M ZULY Stop: 05/29/25 00:00 Last Infusion: 05/29/25 01:23 Dose: Infused Documented By: tuckerr Admin: 05/28/25 23:54 Dose: 999 mls/hr Documented By: tuckerr Infusion: 05/28/25 23:41 Dose: Infused Documented By: vgr Admin: 05/28/25 22:40 Dose: 999 mls/hr Documented By: TIM Piperacillin Sod/Tazobactam Sod (Zosyn) 4.5 gm in 100 mls @ 200 mls/hr IV NOW ONE; Protocol Stop: 05/29/25 01:40 Last Admin: 05/29/25 01:18 Dose: 200 mls/hr Documented By: dean Ioversol (Optiray 320 125ml) 118 ml IV ONCE ONE Stop: 05/28/25 23:51 Last Admin: 05/28/25 23:51 Dose: 118 ml Documented By: PENELOPE Lorazepam (Lorazepam 1 Mg/1 Ml Syr Ed Inj Use) 1 mg IV ONE STA Stop: 05/28/25 21:55 Last Admin: 05/28/25 22:40 Dose: 1 mg Documented By: TIM Lorazepam (Lorazepam 1 Mg/1 Ml Syr Ed Inj Use) 0.5 mg IV ONE STA Stop: 05/29/25 00:14 Last Admin: 05/29/25 00:24 Dose: 0.5 mg Documented By: tuckerr Ondansetron HCl (Ondansetron Inj 2 Mg/Ml 2 Ml Vial) 4 mg IV NOW STA Stop: 05/28/25 21:55 Last Admin: 05/28/25 22:40 Dose: 4 mg Documented By: TIM Ondansetron HCl (Ondansetron Inj 2 Mg/Ml 2 Ml Vial) 4 mg IV NOW STA Stop: 05/29/25 00:14 Last Admin: 05/29/25 00:17 Dose: 4 mg Documented By: dean Medical Decision Making Medical Records Attestation: I reviewed the patient's medical records. Home Medications Current Medication List: was personally reviewed by me Laboratory Data Attestation: I reviewed the patient's lab results. 05/28/25 22:12 05/28/25 22:12 Lab Results 05/28/25 05/28/25 Range/Units 22:12 22:24 WBC 7.01 (4.8-10.8) K/ul RBC 3.85 L (4.20-5.40) M/uL Hgb 10.4 L (12.0-16.0) g/dL Hct 31.5 L (37.0-47.0) % MCV 81.8 (80.0-100.0) fL MCH 27.0 (25.0-34.0) pg MCHC 33.0 (32.0-36.0) g/dL RDW Std Deviation 40.7 (36.4-46.3) fL RDW Coeff of Priscilla 13.6 (11.5-14.5) % Plt Count 501 H (130-400) K/uL MPV 9.1 L (9.4-12.4) fL Immature Gran % (Auto) 0.1 % Neut % (Auto) 45.8 % Lymph % (Auto) 42.9 % [place] % (Auto) 8.8 % Eos % (Auto) 1.7 % Baso % (Auto) 0.7 % Neut # (Auto) 3.20 (1.40-6.50) K/uL Lymph # (Auto) 3.01 (1.20-3.40) K/uL [place] # (Auto) 0.62 H (0.11-0.59) K/uL Eos # (Auto) 0.12 (0.00-0.50) K/uL Baso # (Auto) 0.05 (0.00-0.20) K/uL Immature Gran # (Auto) 0.01 (0.01-0.20) K/uL Sodium 139 (136-145) mmol/L Potassium 3.5 (3.5-5.1) mmol/L Chloride 105 (98-107) mmol/L Carbon Dioxide 25 (21-32) mmol/L Anion Gap 9 (3-11) BUN 18 (6-23) mg/dl Creatinine 0.51 L (0.6-1.2) mg/dl Est Cr Clr Drug Dosing 116.9 ml/min eGFR 131.13 BUN/Creatinine Ratio 35.3 H (10-20) Glucose 87 (70-99(Fasting)) mg/dl Lactate 1.4 (0.4-2.0) mmol/L Calcium 10.0 (8.6-10.3) mg/dl Magnesium 1.8 (1.7-2.4) mg/dl Total Bilirubin 0.5 (0.2-1.0) mg/dl Direct Bilirubin 0.1 (0-0.2) mg/dl AST 35 (13-39) U/L ALT 36 (7-52) U/L Alkaline Phosphatase 88 (34-104) U/L Troponin I High Sens 4.0 (0-14) pg/ml Total Protein 8.1 (6.0-8.3) gm/dl Albumin 4.4 (3.4-5.0) gm/dl Procalcitonin < 0.02 (0-0.5) ng/ml TSH 1.773 (0.300-4.500) uIu/ml HCG, Qual Negative (Negative) Adenovirus (PCR) Not Detected (NotDetected) B. pertussis DNA (PCR) Not Detected (NotDetected) B.parapertussis DNA PCR Not Detected (NotDetected) C. pneumoniae DNA (PCR) Not Detected (NotDetected) Coronavirus OC43 (PCR) Not Detected (NotDetected) Coronavirus HKU1 (PCR) Not Detected (NotDetected) Coronavirus 229E (PCR) Not Detected (NotDetected) SARS-CoV-2 (PCR) Not Detected (NotDetected) Coronavirus NL63 (PCR) Not Detected (NotDetected) Human Metapneumovir PCR Not Detected (NotDetected) Influenza Type A (PCR) Not Detected (NotDetected) Influenza Type B (PCR) Not Detected (NotDetected) M. pneumoniae (PCR) Not Detected (NotDetected) Parainfluenza 1 (PCR) Not Detected (NotDetected) Parainfluenza 2 (PCR) Not Detected (NotDetected) Parainfluenza 3 (PCR) Not Detected (NotDetected) Parainfluenza 4 (PCR) Not Detected (NotDetected) RSV (PCR) Not Detected (NotDetected) Entero/Rhino (PCR) Not Detected (NotDetected) Imaging Data Attestation: I personally reviewed and interpreted this imaging study as follows: Radiologist's Impression: Head CTA 05/28/25 21:54 CR Exam(s): CTA HEAD W/WO Contrast IV Amt: 118 cc's optiray 320 EXAM: CT Angiography Head Without and With Intravenous Contrast CLINICAL HISTORY: Headache and dizziness TECHNIQUE: Axial computed tomographic angiography images of the head without and with intravenous contrast. 3D and MIPS images were created and reviewed. CTDI is 38 mGy and DLP is 624 mGy-cm. Automated exposure control was utilized for the study. A dose lowering technique was utilized adhering to the principles of ALARA. MIP reconstructed images were created and reviewed. CONTRAST: Patient received 118 cc's optiray 320 of IV contrast COMPARISON: No relevant prior studies available. FINDINGS: VASCULATURE: Right internal carotid artery: No acute findings. Intracranial segment is patent with no significant stenosis. No aneurysm. Right anterior cerebral artery: Absent or hypoplastic right A1. The remainder of the ANA is unremarkable. No significant stenosis. Right middle cerebral artery: Unremarkable. No occlusion or significant stenosis. No aneurysm. Right posterior cerebral artery: Unremarkable. No occlusion or significant stenosis. No aneurysm. Right vertebral artery: Unremarkable as visualized. 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 Intracranial segment is patent with no significant stenosis. Left anterior cerebral artery: Unremarkable. No occlusion or significant stenosis. No aneurysm. Left middle cerebral artery: Unremarkable. No occlusion or significant stenosis. No aneurysm. Left posterior cerebral artery: Unremarkable. No occlusion or significant stenosis. No aneurysm. Left vertebral artery: Unremarkable as visualized. Basilar artery: Unremarkable. No occlusion or significant stenosis. No aneurysm. HEAD: Brain: No acute findings. No intracranial hemorrhage, mass-effect or midline shift. No abnormal extra axial fluid. No evidence of acute infarct. Ventricles: Unremarkable. No ventriculomegaly. Bones/joints: No acute fracture. Soft tissues: Unremarkable. Sinuses: Unremarkable as visualized. No acute sinusitis. Mastoid air cells: Unremarkable as visualized. No mastoid effusion. IMPRESSION: 1. 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 No other acute finding of the arteries of the head. 2. No acute intracranial finding. Communications: Call Doctor Stroke Electronically signed by: Melissa De La Cruz MD 05/29/25 01:17 AM Neck CTA 05/28/25 21:54 CR Exam(s): CTA NECK With Contrast IV Amt: 118 cc's optiray 320 EXAM: CT Angiography Neck With Intravenous Contrast CLINICAL HISTORY: Headache and dizziness TECHNIQUE: Routine carotid CT angiography protocol was performed with intravenous contrast. NASCET criteria using the distal ICAs for comparison were used for evaluation of stenoses. MIPS images were created and reviewed. CTDI is 15 mGy and DLP is 416 mGy-cm. Automated exposure control was utilized for the study. A dose lowering technique was utilized adhering to the principles of ALARA. MIP reconstructed images were created and reviewed. CONTRAST: Patient received 118 cc's optiray 320 of IV contrast COMPARISON: None. FINDINGS: Limitations: Please note patient motion limits evaluation. VASCULATURE: Right common carotid artery: Unremarkable. No occlusion or significant stenosis. No dissection. Right internal carotid artery: Unremarkable. Extracranial segment is patent with no occlusion or significant stenosis. No dissection. Right external carotid artery: Unremarkable. No occlusion. Right vertebral artery: Unremarkable. No occlusion or significant stenosis. No dissection. Left common carotid artery: Unremarkable. No occlusion or significant stenosis. No dissection. Left internal carotid artery: Unremarkable. Extracranial segment is patent with no occlusion or significant stenosis. No dissection. Left external carotid artery: Unremarkable. No occlusion. Left vertebral artery: Unremarkable. No occlusion or significant stenosis. No dissection. NECK: Bones/joints: Unremarkable. No acute fracture. Soft tissues: Unremarkable. Lung apices: Clear. CAROTID STENOSIS REFERENCE USING NASCET CRITERIA: % ICA stenosis = (1 - narrowest ICA diameter/diameter of distal cervical ICA) x 100. Mild - <50% stenosis. Moderate - 50-69% stenosis. Severe - 70-94% stenosis. Near occlusion - 95-99% stenosis. Occluded - 100% stenosis. IMPRESSION: Please note patient motion limits evaluation. No evidence of acute finding of the arteries of the neck. Communications: Call Doctor Stroke Electronically signed by: Melissa De La Cruz MD 05/29/25 01:18 AM Chest X-Ray 05/28/25 21:55 Exam(s): XR CXR 1 VIEW EXAM: XR Chest, 1 View CLINICAL HISTORY: Sepsis. TECHNIQUE: Frontal view of the chest. COMPARISON: 05/17/2025. FINDINGS: Right internal jugular central venous line with tip in the SVC. Heart is normal in size. Interval development of a small patchy infiltrate at the right cardiophrenic angle. No pleural effusion or pneumothorax. Bones are unchanged. IMPRESSION: Interval development of a small patchy infiltrate at the right cardiophrenic angle. Electronically signed by: Gustavo Jennings M.D. 05/29/25 00:18 AM MDM Narrative Prior records/ancillary studies reviewed and summarized above. Nursing notes reviewed. Additional history obtained from family. The patient's history was concerning for headache, dizziness, nausea, vomiting, subjective fever and chills. Differential diagnosis: Etiologies such as sepsis, bacteremia, neurological, metabolic, infection, hypo/hyperglycemia, electrolyte abnormalities, cardiac sources, intracerebral event, toxicologic, neurologic, as well as others were entertained. Physical examination: As above. ER treatment provided: IV Lock An order was placed for continuous cardiac monitoring. The monitor shows a rate of 60-1 20 with a sinus rhythm per my interpretation. IV fluids, Zofran and Ativan and Dilaudid were ordered as patient states these medicines worked best for her Zosyn was ordered for possible pneumonia seen on x-ray. MRSA swabs have been negative recently so did opt not to place her on vancomycin. On reassessment the patient felt better. Diagnostics interpretation by me: ECG: Ordered for dizziness EKG: Normal sinus, no acute ST-T wave changes, Q wave in the inferior lead, rate of 97. Impression normal sinus rhythm independently interpreted by myself The labs Independently Interpreted by myself revealed no worrisome leukocytosis, mild anemia Blood cultures pending-1 peripheral and 1 from the central line Negative lactic. Negative procalcitonin Negative hCG Imaging studies: Imaging was reviewed and read by radiology-all results reviewed with patient and mother. They were informed of the incidental findings Consultation: A consultation was placed with the hospitalist. The case was discussed and diagnostics were reviewed. The patient was evaluated in the ER for further treatment. Exam and history seem consistent with ongoing nausea and vomiting with dehydration and dizziness. Patient had possible pneumonia on x-ray. She was started on antibiotics. Procalcitonin and lactic were negative. No leukocytosis. She is still feeling quite nauseous. Medicine was consulted and the case was discussed. She will be evaluated for admission. Patient is agreeable. By the evaluation outlined above emergent etiologies such as electrolyte abnormalities, cardiac sources, intracerebral event, toxologic, neurologic, abnormalities blood glucose, metabolic, as well as others were deemed relatively unlikely. The pt informed about the findings as listed above. All questions were answered and pleased with the treatment. The chart was completed utilizing [employer] Speech voice recognition software. Grammatical errors, random word insertions, pronoun errors, and incomplete sentences are an occassional consequence of this system due to software limitations, ambient noise, and hardware issues. Any formal questions or concerns about the content, text, or information contained within the body of this dictation should be directly addressed to the physician payroll and benefits assistant for clarification. Impression & Plan Nausea & vomiting, Dizziness, Headache, Pneumonia Discharge Plan Visit Data Chief Complaint: Illness Stated Complaint: NAUSEA, VOMITING, HEADACHE, DIZZY, TACHYCARDIA ED Provider: Josh Mccall ED Midlevel Provider: Nancy Godfrey Discharge Problem: Nausea & vomiting, Dizziness, Headache, Pneumonia Patient Disposition: Admitted As Inpatient Condition: Good Forms Stand Alone Forms: [employer] Prescriptions Prescriptions: No Action famotidine 20 mg Tablet 20 mg PO BID montelukast 10 mg Tablet 10 mg PO HS loratadine 10 mg Tablet 10 mg PO DAILY cholecalciferol (vitamin D3) 1,250 mcg (50,000 unit) Tablet 1,250 mcg PO WK Rx Instructions: WEDNESDAYS duloxetine 20 mg Capsule,Delayed Release(Dr/Ec) 20 mg PO DAILY prucalopride 2 mg tablet 2 mg PO DAILY Patient Comments: has not started yet hydroxyzine HCl 50 mg tablet 50 mg PO QID PRN (Reason: Anxiety) ondansetron 8 mg Tablet,Disintegrating 8 mg PO Q8H PRN (Reason: Nausea And Vomiting) Qty: 30 0RF mupirocin 2 % Ointment 1 applic EXT BID 4 Days Qty: 22 0RF olanzapine 5 mg tablet 5 mg PO HS folic acid 5 mg/mL Solution 1 mg IV DIRECTED Rx Instructions: PRIOR TO TPN INFUSION thiamine HCl (vitamin B1) 100 mg/mL Solution 100 mg IV DIRECTED Rx Instructions: PRIOR TO TPN INFUSIONS vitamin A 3,000 mcg (10,000 unit) Capsule 3,000 mcg PO DAILY heparin lock flush (porcine) [heparin lock flush] 10 unit/mL Solution 10 unit IV DIRECTED Rx Instructions: administer after IV drug administration as part of [facility] protocol anticoag citrate phos dextrose 2.63-222 gram-mg/100mL Solution 1 ml MISCELLANEOUS Q24H sodium chloride 0.9 % (flush) [Saline Flush] Syringe 10 ml IV DIRECTED Infuvite Adult 3,300 unit- 150 mcg/10 mL Solution 10 ml IV DAILY Rx Instructions: ADD TO TPN JUST PRIOR TO INFUSION. add to >=500 mL of compatible IV fluids Dextrose-Sodium Chloride 1,000 ml IV DAILY Rx Instructions: D5%-NS0.45%----INFUSE ONE 1-2HR DAILY. Tpn Infusion 2,800 ml IV DIRECTED Rx Instructions: GIVE IV THIAMINE & FOLIC ACID JUST PRIOR TO ADMINISTRATION. Referrals Referrals: Meek Lopez MD [Primary Care Provider] - Discharge Problem: Nausea & vomiting Qualifiers: Vomiting type: unspecified Qualified Code(s): R11.2 - Nausea with vomiting, unspecified
[2025-05-28] MEDS: SODIUM CHLORIDE 0.9% 1,000 ML IV SCH (22:40)
[2025-05-28] MEDS: ONDANSETRON INJ 2 MG/ML 2 ML VIAL IV STA (22:40)
[2025-05-28] MEDS: LORazepam 1 MG/1 ML SYR ED Inj Use IV STA (22:40)
[2025-05-28 22:44] LABS: Hematocrit (blood only) 31.5 % (37.0-47.0); Hemoglobin 10.4 g/dL (12.0-16.0); Immature Granulocytes # (auto) 0.01 K/uL (0.01-0.20); Immature Granulocytes % (auto) 0.1 %; Mean Corpuscular Hemoglobin 27.0 pg (25.0-34.0); Mean Corpuscular Volume 81.8 fL (80.0-100.0); Platelet Count 501 K/uL (130-400); RDW Standard Deviation 40.7 fL (36.4-46.3); Red Blood Count 3.85 M/uL (4.20-5.40); White Blood Count 7.01 K/ul (4.8-10.8)
[2025-05-28] MEDS: HYDROmorphone INJ 0.5 MG/0.5 ML SYR IV PRN (22:50)
[2025-05-28 23:02] LABS: Alanine Aminotransferase 36.0 U/L (7-52); Albumin Level 4.4 gm/dl (3.4-5.0); Alkaline Phosphatase 88.0 U/L (34-104); Anion Gap 9.0 (3-11); Bilirubin,Total 0.5 mg/dl (0.2-1.0); Blood Urea Nitrogen 18.0 mg/dl (6-23); Calcium 10.0 mg/dl (8.6-10.3); Carbon Dioxide 25.0 mmol/L (21-32); Chloride 105.0 mmol/L (98-107); Creatinine Clr Calc Pharmacy 116.9 ml/min; Glucose 87.0 mg/dl (70-99(Fasting)); Magnesium 1.8 mg/dl (1.7-2.4); Potassium 3.5 mmol/L (3.5-5.1); Sodium 139.0 mmol/L (136-145); Total Protein 8.1 gm/dl (6.0-8.3)
[2025-05-28 23:07] LABS: Pregnancy Test, Serum Negative (Negative)
[2025-05-28 23:18] LABS: Thyroid Stimulating Hormone 1.773 uIu/ml (0.300-4.500)
[2025-05-28 23:25] LABS: Chlamydia pneumoniae PCR Not Detected (NotDetected); Coronavirus 229E PCR Not Detected (NotDetected); Coronavirus CoV-2 (COVID19)PCR Not Detected (NotDetected); Coronavirus HKU1 PCR Not Detected (NotDetected); Coronavirus NL63 PCR Not Detected (NotDetected); Coronavirus OC43PCR Not Detected (NotDetected); Human Metapneumovirus PCR Not Detected (NotDetected); Parainfluenza Virus 1 PCR Not Detected (NotDetected); Parainfluenza Virus 2 PCR Not Detected (NotDetected); Parainfluenza Virus 3 PCR Not Detected (NotDetected); Parainfluenza Virus 4 PCR Not Detected (NotDetected); Respiratory Syncytial VirusPCR Not Detected (NotDetected); Rhinovirus/Enterovirus PCR Not Detected (NotDetected)
[2025-05-28] MEDS: OPTIRAY 320 125ml IV ONE (23:51)
[2025-05-29] MEDS: ONDANSETRON INJ 2 MG/ML 2 ML VIAL IV STA (00:17)
--- NOTE | 2025-05-29 00:18 | XRay Report ---
Exam(s): XR CXR 1 VIEW EXAM: XR Chest, 1 View CLINICAL HISTORY: Sepsis. TECHNIQUE: Frontal view of the chest. COMPARISON: 05/17/2025. FINDINGS: Right internal jugular central venous line with tip in the SVC. Heart is normal in size. Interval development of a small patchy infiltrate at the right cardiophrenic angle. No pleural effusion or pneumothorax. Bones are unchanged. IMPRESSION: Interval development of a small patchy infiltrate at the right cardiophrenic angle. Electronically signed by: Gustavo Jennings M.D. 05/29/25 00:18 AM
[2025-05-29] MEDS: LORazepam 1 MG/1 ML SYR ED Inj Use IV STA (00:24)
--- NOTE | 2025-05-29 01:17 | CT Scan Report ---
Exam(s): CTA HEAD W/WO Contrast IV Amt: 118 cc's optiray 320 EXAM: CT Angiography Head Without and With Intravenous Contrast CLINICAL HISTORY: Headache and dizziness TECHNIQUE: Axial computed tomographic angiography images of the head without and with intravenous contrast. 3D and MIPS images were created and reviewed. CTDI is 38 mGy and DLP is 624 mGy-cm. Automated exposure control was utilized for the study. A dose lowering technique was utilized adhering to the principles of ALARA. MIP reconstructed images were created and reviewed. CONTRAST: Patient received 118 cc's optiray 320 of IV contrast COMPARISON: No relevant prior studies available. FINDINGS: VASCULATURE: Right internal carotid artery: No acute findings. Intracranial segment is patent with no significant stenosis. No aneurysm. Right anterior cerebral artery: Absent or hypoplastic right A1. The remainder of the ANA is unremarkable. No significant stenosis. Right middle cerebral artery: Unremarkable. No occlusion or significant stenosis. No aneurysm. Right posterior cerebral artery: Unremarkable. No occlusion or significant stenosis. No aneurysm. Right vertebral artery: Unremarkable as visualized. 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 Intracranial segment is patent with no significant stenosis. Left anterior cerebral artery: Unremarkable. No occlusion or significant stenosis. No aneurysm. Left middle cerebral artery: Unremarkable. No occlusion or significant stenosis. No aneurysm. Left posterior cerebral artery: Unremarkable. No occlusion or significant stenosis. No aneurysm. Left vertebral artery: Unremarkable as visualized. Basilar artery: Unremarkable. No occlusion or significant stenosis. No aneurysm. HEAD: Brain: No acute findings. No intracranial hemorrhage, mass-effect or midline shift. No abnormal extra axial fluid. No evidence of acute infarct. Ventricles: Unremarkable. No ventriculomegaly. Bones/joints: No acute fracture. Soft tissues: Unremarkable. Sinuses: Unremarkable as visualized. No acute sinusitis. Mastoid air cells: Unremarkable as visualized. No mastoid effusion. IMPRESSION: 1. 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 No other acute finding of the arteries of the head. 2. No acute intracranial finding. Communications: Call Doctor Stroke Electronically signed by: Melissa De La Cruz MD 05/29/25 01:17 AM
[2025-05-29] MEDS: PIPERACILLIN/TAZOBACTAM 4.5 GM/100 ML BAG IV ONE (01:18)
--- NOTE | 2025-05-29 01:19 | CT Scan Report ---
Exam(s): CTA NECK With Contrast IV Amt: 118 cc's optiray 320 EXAM: CT Angiography Neck With Intravenous Contrast CLINICAL HISTORY: Headache and dizziness TECHNIQUE: Routine carotid CT angiography protocol was performed with intravenous contrast. NASCET criteria using the distal ICAs for comparison were used for evaluation of stenoses. MIPS images were created and reviewed. CTDI is 15 mGy and DLP is 416 mGy-cm. Automated exposure control was utilized for the study. A dose lowering technique was utilized adhering to the principles of ALARA. MIP reconstructed images were created and reviewed. CONTRAST: Patient received 118 cc's optiray 320 of IV contrast COMPARISON: None. FINDINGS: Limitations: Please note patient motion limits evaluation. VASCULATURE: Right common carotid artery: Unremarkable. No occlusion or significant stenosis. No dissection. Right internal carotid artery: Unremarkable. Extracranial segment is patent with no occlusion or significant stenosis. No dissection. Right external carotid artery: Unremarkable. No occlusion. Right vertebral artery: Unremarkable. No occlusion or significant stenosis. No dissection. Left common carotid artery: Unremarkable. No occlusion or significant stenosis. No dissection. Left internal carotid artery: Unremarkable. Extracranial segment is patent with no occlusion or significant stenosis. No dissection. Left external carotid artery: Unremarkable. No occlusion. Left vertebral artery: Unremarkable. No occlusion or significant stenosis. No dissection. NECK: Bones/joints: Unremarkable. No acute fracture. Soft tissues: Unremarkable. Lung apices: Clear. CAROTID STENOSIS REFERENCE USING NASCET CRITERIA: % ICA stenosis = (1 - narrowest ICA diameter/diameter of distal cervical ICA) x 100. Mild - <50% stenosis. Moderate - 50-69% stenosis. Severe - 70-94% stenosis. Near occlusion - 95-99% stenosis. Occluded - 100% stenosis. IMPRESSION: Please note patient motion limits evaluation. No evidence of acute finding of the arteries of the neck. Communications: Call Doctor Stroke Electronically signed by: Melissa De La Cruz MD 05/29/25 01:18 AM
[2025-05-29] MEDS: LACTATED RINGER'S 1,000 ML IV SCH (01:23)
[2025-05-29] MEDS ORDERED: ACETAMINOPHEN 325 MG TAB PO PRN (01:33)
--- NOTE | 2025-05-29 01:41 | History & Physical Report ---
Date of Service May 29, 2025 Assessment & Plan (1) Aspiration pneumonia: Plan: Assessment and plan below following discussion of case with ED provider and reviewing patient history/pertinent normal/abnormal diagnostic test results. Aspiration pneumonia, no overt sepsis for now Secondary to nausea vomiting symptoms History gastroparesis/GI dysmotility on TPN ? 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 Camp) on Friday. Outpatient Vascular Neurosurgery consultation for supraclinoid aneurysm DVT prophylaxis. Heparin subcu Full code Patient mother requesting updates providers. Mr. Gwen Mccarthy, contact #[phone]. Text document was generated using Perkle voice recognition software. It may contain grammatical or spelling errors. Kindly contact undersigned for clarification of any documentation item in question. History of Present Illness Chief Complaint: Nausea/vomiting Primary Care Provider: Meek Lopez MD History obtained from patient, family, and records. Medical history significant for POTS, Jaqui-Danlos disease, chronic abdominal pain, gastroparesis, GERD, H. 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 Recent confinement May 23 to 2024 for possible adverse reaction to micafungin. Patient started not feeling well a few days ago. Nausea, vomiting symptoms without unusual abdominal pain. No unusual chest pain, SOB, or headache symptoms. No actual cough symptoms. Patient also started new Motegrity medication prescribed by by her store worker from [facility] at about the time she got sick. Zosyn administered at the ER. Medical History as above Surgical History : Vascular procedures, tendon sheath/wrist surgery, GJ tube placement, knee surgery, tympanostomy tube placement Family History : Unknown as patient was adopted Personal/Social history : Non-smoker, no EtOH intake, unemployed Allergies Allergy/AdvReac Type Severity Reaction Status Date / Time diphenhydramine Allergy Severe Urticaria, Verified 05/28/25 22:17 [From Benadryl] severe anxiety, jittery prochlorperazine Allergy Severe Anaphylaxis Verified 05/28/25 22:17 [From Compazine] adhesive Allergy Intermediate Redness, Verified 05/28/25 22:17 swelling banana Allergy Intermediate Itching Verified 05/28/25 22:17 bee pollen Allergy Intermediate ITCHY Verified 05/28/25 22:17 EYES, SNEEZING, CONGESTION cantaloupe Allergy Intermediate Itching Verified 05/28/25 22:17 egg Allergy Intermediate EGG Verified 05/28/25 22:17 WHITES--ITCHING gluten Allergy Intermediate Hives, GI Verified 05/28/25 22:17 upset peanut Allergy Intermediate Itchy Verified 05/28/25 22:17 throat pollen extracts Allergy Intermediate Itchy Verified 05/28/25 22:17 eyes, sneezing, congestion sesame seed Allergy Intermediate Itching Verified 05/28/25 22:17 strawberry Allergy Intermediate Itching Verified 05/28/25 22:17 tomato Allergy Intermediate Itching Verified 05/28/25 22:17 tree nut Allergy Intermediate Itchy Verified 05/28/25 22:17 throat watermelon Allergy Intermediate Itching Verified 05/28/25 22:17 chlorhexidine Allergy Unknown Unknown Verified 05/28/25 22:17 iron [From Venofer] AdvReac Severe Abdominal Verified 05/28/25 22:17 Pain fentanyl AdvReac Intermediate nausea and Verified 05/06/25 10:10 vomiting lactose AdvReac Intermediate Gastrointestinal Verified 05/28/25 22:17 Upset Latex, Natural Rubber AdvReac Intermediate Redness, Verified 05/28/25 22:17 swollen, itchy micafungin AdvReac Unknown Unknown Verified 05/28/25 22:17 polyurethane Allergy Intermediate Hives Uncoded 05/28/25 22:17 polyurethane power port Allergy Mild Itching Uncoded 05/28/25 22:17 malabar nut tree Allergy Unknown Unknown Uncoded 05/28/25 22:17 Home Medications Medication Instructions Recorded Confirmed Type cholecalciferol (vitamin D3) 1,250 1,250 mcg PO WK 04/09/25 05/28/25 History mcg (50,000 unit) tablet duloxetine 20 mg capsule,delayed 20 mg PO DAILY 04/09/25 05/28/25 History release famotidine 20 mg tablet 20 mg PO BID 04/09/25 05/28/25 History loratadine 10 mg tablet 10 mg PO DAILY 04/09/25 05/28/25 History montelukast 10 mg tablet 10 mg PO HS 04/09/25 05/28/25 History hydroxyzine HCl 50 mg tablet 50 mg PO QID PRN Anxiety 05/06/25 05/28/25 History prucalopride 2 mg tablet 2 mg PO DAILY 05/06/25 05/28/25 History ondansetron 8 mg disintegrating 8 mg PO Q8H PRN Nausea And 05/20/25 05/28/25 Rx tablet Vomiting #30 tabs mupirocin 2 % topical ointment 1 applic EXT BID 4 days #22 grams 05/26/25 05/28/25 Rx Dextrose-Sodium Chloride 1,000 ml IV DAILY 05/28/25 05/28/25 History Tpn Infusion 2,800 ml IV DIRECTED 05/28/25 05/28/25 History anticoag citrate phos dextrose 1 ml miscellaneous Q24H 05/28/25 05/28/25 History 2.63 gram-222 mg/100 mL solution folic acid 5 mg/mL injection 1 mg IV DIRECTED 05/28/25 05/28/25 History solution heparin lock flush (porcine) 10 10 unit IV DIRECTED 05/28/25 05/28/25 History unit/mL intravenous solution mvi, adult no.4 with vit K 3300 10 ml IV DAILY 05/28/25 05/28/25 History unit-150 mcg/10 mL intravenous solution (Infuvite Adult) olanzapine 5 mg tablet 5 mg PO HS 05/28/25 05/28/25 History sodium chloride 0.9 % (flush) 10 ml IV DIRECTED 05/28/25 05/28/25 History thiamine HCl (vitamin B1) 100 100 mg IV DIRECTED 05/28/25 05/28/25 History mg/mL injection solution vitamin A 3,000 mcg (10,000 unit) 3,000 mcg PO DAILY 05/28/25 05/28/25 History capsule Past Med/Surg History Problem List (Updated 05/29/25 @ 08:44 by Steven Cramer MD) Aspiration pneumonia Pneumonia (Acute) Headache (Acute) Dizziness (Acute) Nausea & vomiting (Acute) Infusion reaction (Acute) Fungemia Acute hypokalemia (Acute) Transaminitis (Acute) Ileus Transaminitis Chronic pain syndrome E. coli bacteremia Severe sepsis with acute organ dysfunction Sepsis (Acute) Pneumonitis (Acute) Acute dehydration (Acute) Severe protein-calorie malnutrition (Acute) History of central line-associated bloodstream infection (CLABSI) Bacteremia due to methicillin resistant Staphylococcus epidermidis Infection of venous access port (Acute) Sepsis (Acute) MSSA bacteremia Infection complicating venous access device Bacterial sepsis CLABSI (central line-associated bloodstream infection) Cellulitis (Acute) Bacteremia due to Enterococcus Sepsis Tachycardia (Acute) Central venous catheter in place (Acute) broke- clamped in ER, taped around site Fungemia DVT prophylaxis Encounter for pre-operative examination (~02/07/23) Gastrointestinal dysmotility Close exposure to COVID-19 virus (Acute) Iron deficiency (Acute) Symptomatic anemia (Acute) Chronic pain POTS (postural orthostatic tachycardia syndrome) History of esophagogastroduodenoscopy (EGD) Severe malnutrition (Acute) Abdominal pain, chronic, epigastric (Acute) chronic On total parenteral nutrition (TPN) (Acute) Jaqui-Danlos disease Dx several years ago Medical History Gastrostomy tube in place Anxiety Gastrointestinal dysmotility Reactive hypoglycemia dexcom present to left arm Anemia Neuropathy legs Gastroparesis History of COVID-19 02/2022, not hospitalized 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 Jejunostomy tube present placed October 2020 Surgical History S/P gastrostomy History of removal of Port-a-Cath (05/21/24) Infusaport Removal - Left side(Left) - Alton Garcia DO, FACS History of myringotomy History of surgery (06/24/21) Removal of Right Tunneled Central Line in Internal Jugular Catheter H/O wisdom tooth extraction H/O wrist surgery right S/P knee surgery Left Family History Other Adopted Social History Smoking Status: Never smoker Second Hand Exposure: No; Do You Dip or Chew Tobacco: No; Hx Alcohol Use: Yes Alcohol type: hard liquor Hx Substance Use: No Preferred Language: Wolof Communication Ability: Effective 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: No Beliefs That Will Affect Care: None Current Living Situation: Parent and Family Current Living Situation Comment: Lives w/ family at home Other Information That Helps Us Care for You: No Feels Safe at Home: Yes Safety Concerns: Feels Safe At This Time Assistive Devices: None Review of Systems Review of Systems: As per HPI, all other systems reviewed and negative Physical Exam Physical Exam: GENERAL: Slightly anxious, uncomfortable, underweight, no respiratory distress SKIN: Normal color, warm HEENT: [place] palpebral conjunctivae, no ptosis, dry buccal mucosa NECK : Supple, no tenderness CHEST : CTA, no tenderness HEART : Tachycardic, no obvious murmurs ABDOMEN: Some distention, nontender EXTREMITIES : No LE swelling/tenderness, no other conspicuous deformities noted NEUROLOGIC : Coherent, no facial asymmetry, no other gross focality Results & Data Results & Data Vital Signs (Past 12 Hours) Vital Signs Temp Pulse Pulse Resp BP BP Pulse Ox 05/29/25 01:00 111 H 16 104/67 100 05/28/25 23:56 116 H 21 103/77 99 05/28/25 23:15 109 H 24 124/92 96 05/28/25 23:01 103 H 05/28/25 21:43 36.8 C 109 H 20 127/94 99 O2 Del Method 05/29/25 01:00 Room Air 05/28/25 23:56 Room Air 05/28/25 23:15 Room Air 05/28/25 23:01 05/28/25 21:43 Room Air Laboratory Results Laboratory Results WBC 7.01 K/ul (4.8-10.8) 05/28/25 22:12 RBC 3.85 M/uL (4.20-5.40) L 05/28/25 22:12 Hgb 10.4 g/dL (12.0-16.0) L 05/28/25 22:12 Hct 31.5 % (37.0-47.0) L 05/28/25 22:12 MCV 81.8 fL (80.0-100.0) 05/28/25 22:12 MCH 27.0 pg (25.0-34.0) 05/28/25 22:12 MCHC 33.0 g/dL (32.0-36.0) 05/28/25 22:12 RDW Std Deviation 40.7 fL (36.4-46.3) 05/28/25 22:12 RDW Coeff of Priscilla 13.6 % (11.5-14.5) 05/28/25 22:12 Plt Count 501 K/uL (130-400) H 05/28/25 22:12 MPV 9.1 fL (9.4-12.4) L 05/28/25 22:12 Immature Gran % (Auto) 0.1 % 05/28/25 22:12 Neut % (Auto) 45.8 % 05/28/25 22:12 Lymph % (Auto) 42.9 % 05/28/25 22:12 [place] % (Auto) 8.8 % 05/28/25 22:12 Eos % (Auto) 1.7 % 05/28/25 22:12 Baso % (Auto) 0.7 % 05/28/25 22:12 Neut # (Auto) 3.20 K/uL (1.40-6.50) 05/28/25 22:12 Lymph # (Auto) 3.01 K/uL (1.20-3.40) 05/28/25 22:12 [place] # (Auto) 0.62 K/uL (0.11-0.59) H 05/28/25 22:12 Eos # (Auto) 0.12 K/uL (0.00-0.50) 05/28/25 22:12 Baso # (Auto) 0.05 K/uL (0.00-0.20) 05/28/25 22:12 Immature Gran # (Auto) 0.01 K/uL (0.01-0.20) 05/28/25 22:12 Sodium 139 mmol/L (136-145) 05/28/25 22:12 Potassium 3.5 mmol/L (3.5-5.1) 05/28/25 22:12 Chloride 105 mmol/L (98-107) 05/28/25 22:12 Carbon Dioxide 25 mmol/L (21-32) 05/28/25 22:12 Anion Gap 9 (3-11) 05/28/25 22:12 BUN 18 mg/dl (6-23) 05/28/25 22:12 Creatinine 0.51 mg/dl (0.6-1.2) L 05/28/25 22:12 Est Cr Clr Drug Dosing 116.9 ml/min 05/28/25 22:12 eGFR 131.13 05/28/25 22:12 BUN/Creatinine Ratio 35.3 (10-20) H 05/28/25 22:12 Glucose 87 mg/dl (70-99(Fasting)) 05/28/25 22:12 Lactate 1.4 mmol/L (0.4-2.0) 05/28/25 22:12 Calcium 10.0 mg/dl (8.6-10.3) 05/28/25 22:12 Magnesium 1.8 mg/dl (1.7-2.4) 05/28/25 22:12 Total Bilirubin 0.5 mg/dl (0.2-1.0) 05/28/25 22:12 Direct Bilirubin 0.1 mg/dl (0-0.2) 05/28/25 22:12 AST 35 U/L (13-39) 05/28/25 22:12 ALT 36 U/L (7-52) 05/28/25 22:12 Alkaline Phosphatase 88 U/L (34-104) 05/28/25 22:12 Troponin I High Sens 4.0 pg/ml (0-14) 05/28/25 22:12 Total Protein 8.1 gm/dl (6.0-8.3) 05/28/25 22:12 Albumin 4.4 gm/dl (3.4-5.0) 05/28/25 22:12 Procalcitonin < 0.02 ng/ml (0-0.5) 05/28/25 22:12 TSH 1.773 uIu/ml (0.300-4.500) 05/28/25 22:12 HCG, Qual Negative (Negative) 05/28/25 22:12 Adenovirus (PCR) Not Detected (NotDetected) 05/28/25 22:24 B. pertussis DNA (PCR) Not Detected (NotDetected) 05/28/25 22:24 B.parapertussis DNA PCR Not Detected (NotDetected) 11/15/25 22:24 C. pneumoniae DNA (PCR) Not Detected (NotDetected) 05/28/25 22:24 Coronavirus OC43 (PCR) Not Detected (NotDetected) 05/28/25 22:24 Coronavirus HKU1 (PCR) Not Detected (NotDetected) 05/28/25 22:24 Coronavirus 229E (PCR) Not Detected (NotDetected) 05/28/25 22:24 SARS-CoV-2 (PCR) Not Detected (NotDetected) 05/28/25 22:24 Coronavirus NL63 (PCR) Not Detected (NotDetected) 05/28/25 22:24 Human Metapneumovir PCR Not Detected (NotDetected) 05/28/25 22:24 Influenza Type A (PCR) Not Detected (NotDetected) 05/28/25 22:24 Influenza Type B (PCR) Not Detected (NotDetected) 05/28/25 22:24 M. pneumoniae (PCR) Not Detected (NotDetected) 05/28/25 22:24 Parainfluenza 1 (PCR) Not Detected (NotDetected) 05/28/25 22:24 Parainfluenza 2 (PCR) Not Detected (NotDetected) 05/28/25 22:24 Parainfluenza 3 (PCR) Not Detected (NotDetected) 05/28/25 22:24 Parainfluenza 4 (PCR) Not Detected (NotDetected) 05/28/25 22:24 RSV (PCR) Not Detected (NotDetected) 05/28/25 22:24 Entero/Rhino (PCR) Not Detected (NotDetected) 05/28/25 22:24 Impressions Head CTA 05/28/25 21:54 CR Exam(s): CTA HEAD W/WO Contrast IV Amt: 118 cc's optiray 320 EXAM: CT Angiography Head Without and With Intravenous Contrast CLINICAL HISTORY: Headache and dizziness TECHNIQUE: Axial computed tomographic angiography images of the head without and with intravenous contrast. 3D and MIPS images were created and reviewed. CTDI is 38 mGy and DLP is 624 mGy-cm. Automated exposure control was utilized for the study. A dose lowering technique was utilized adhering to the principles of ALARA. MIP reconstructed images were created and reviewed. CONTRAST: Patient received 118 cc's optiray 320 of IV contrast COMPARISON: No relevant prior studies available. FINDINGS: VASCULATURE: Right internal carotid artery: No acute findings. Intracranial segment is patent with no significant stenosis. No aneurysm. Right anterior cerebral artery: Absent or hypoplastic right A1. The remainder of the ANA is unremarkable. No significant stenosis. Right middle cerebral artery: Unremarkable. No occlusion or significant stenosis. No aneurysm. Right posterior cerebral artery: Unremarkable. No occlusion or significant stenosis. No aneurysm. Right vertebral artery: Unremarkable as visualized. 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 Intracranial segment is patent with no significant stenosis. Left anterior cerebral artery: Unremarkable. No occlusion or significant stenosis. No aneurysm. Left middle cerebral artery: Unremarkable. No occlusion or significant stenosis. No aneurysm. Left posterior cerebral artery: Unremarkable. No occlusion or significant stenosis. No aneurysm. Left vertebral artery: Unremarkable as visualized. Basilar artery: Unremarkable. No occlusion or significant stenosis. No aneurysm. HEAD: Brain: No acute findings. No intracranial hemorrhage, mass-effect or midline shift. No abnormal extra axial fluid. No evidence of acute infarct. Ventricles: Unremarkable. No ventriculomegaly. Bones/joints: No acute fracture. Soft tissues: Unremarkable. Sinuses: Unremarkable as visualized. No acute sinusitis. Mastoid air cells: Unremarkable as visualized. No mastoid effusion. IMPRESSION: 1. 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 No other acute finding of the arteries of the head. 2. No acute intracranial finding. Communications: Call Doctor Stroke Electronically signed by: Melissa De La Cruz MD 05/29/25 01:17 AM Neck CTA 05/28/25 21:54 CR Exam(s): CTA NECK With Contrast IV Amt: 118 cc's optiray 320 EXAM: CT Angiography Neck With Intravenous Contrast CLINICAL HISTORY: Headache and dizziness TECHNIQUE: Routine carotid CT angiography protocol was performed with intravenous contrast. NASCET criteria using the distal ICAs for comparison were used for evaluation of stenoses. MIPS images were created and reviewed. CTDI is 15 mGy and DLP is 416 mGy-cm. Automated exposure control was utilized for the study. A dose lowering technique was utilized adhering to the principles of ALARA. MIP reconstructed images were created and reviewed. CONTRAST: Patient received 118 cc's optiray 320 of IV contrast COMPARISON: None. FINDINGS: Limitations: Please note patient motion limits evaluation. VASCULATURE: Right common carotid artery: Unremarkable. No occlusion or significant stenosis. No dissection. Right internal carotid artery: Unremarkable. Extracranial segment is patent with no occlusion or significant stenosis. No dissection. Right external carotid artery: Unremarkable. No occlusion. Right vertebral artery: Unremarkable. No occlusion or significant stenosis. No dissection. Left common carotid artery: Unremarkable. No occlusion or significant stenosis. No dissection. Left internal carotid artery: Unremarkable. Extracranial segment is patent with no occlusion or significant stenosis. No dissection. Left external carotid artery: Unremarkable. No occlusion. Left vertebral artery: Unremarkable. No occlusion or significant stenosis. No dissection. NECK: Bones/joints: Unremarkable. No acute fracture. Soft tissues: Unremarkable. Lung apices: Clear. CAROTID STENOSIS REFERENCE USING NASCET CRITERIA: % ICA stenosis = (1 - narrowest ICA diameter/diameter of distal cervical ICA) x 100. Mild - <50% stenosis. Moderate - 50-69% stenosis. Severe - 70-94% stenosis. Near occlusion - 95-99% stenosis. Occluded - 100% stenosis. IMPRESSION: Please note patient motion limits evaluation. No evidence of acute finding of the arteries of the neck. Communications: Call Doctor Stroke Electronically signed by: Melissa De aL Cruz MD 05/29/25 01:18 AM Chest X-Ray 05/28/25 21:55 Exam(s): XR CXR 1 VIEW EXAM: XR Chest, 1 View CLINICAL HISTORY: Sepsis. TECHNIQUE: Frontal view of the chest. COMPARISON: 05/17/2025. FINDINGS: Right internal jugular central venous line with tip in the SVC. Heart is normal in size. Interval development of a small patchy infiltrate at the right cardiophrenic angle. No pleural effusion or pneumothorax. Bones are unchanged. IMPRESSION: Interval development of a small patchy infiltrate at the right cardiophrenic angle. Electronically signed by: Gustavo Jennings M.D. 05/29/25 00:18 AM Diagnostic Findings EKG as per my interpretation :Rate 100, NSR, normal axis, inferior infarct, no ischemia
[2025-05-29] MEDS: MAGNESIUM SULFATE / D5W 1 GM/100 ML BAG IV STA (01:55)
[2025-05-29] MEDS ORDERED: TPN/PPN CONSULT PHARMACY PRN (02:12)
[2025-05-29] MEDS: NSS + 20MEQ KCL 20 MEQ/1,000 ML BAG IV STA (02:34)
[2025-05-29] MEDS: POTASSIUM CHLORIDE PWD 20 MEQ PACK PO STA (03:03)
[2025-05-29] MEDS: PROMETHAZINE 6.25 MG/50.25 ML BAG IV STA (03:10)
[2025-05-29] MEDS: HEPARIN SOD 5,000 UNIT/0.5 ML VIAL SQ SCH (05:47)
[2025-05-29] MEDS: POTASSIUM CHLORIDE CRTAB 20 MEQ TABCR PO STA (05:47)
[2025-05-29] MEDS: ONDANSETRON INJ 2 MG/ML 2 ML VIAL IV PRN (05:48)
[2025-05-29 07:33] LABS: Hematocrit (blood only) 26.6 % (37.0-47.0); Hemoglobin 8.7 g/dL (12.0-16.0); Immature Granulocytes # (auto) 0.02 K/uL (0.01-0.20); Immature Granulocytes % (auto) 0.3 %; Mean Corpuscular Hemoglobin 27.0 pg (25.0-34.0); Mean Corpuscular Volume 82.6 fL (80.0-100.0); Platelet Count 409 K/uL (130-400); RDW Standard Deviation 41.1 fL (36.4-46.3); Red Blood Count 3.22 M/uL (4.20-5.40); White Blood Count 6.27 K/ul (4.8-10.8)
[2025-05-29 08:09] LABS: Anion Gap 7.0 (3-11); Blood Urea Nitrogen 13.0 mg/dl (6-23); Calcium 8.8 mg/dl (8.6-10.3); Carbon Dioxide 21.0 mmol/L (21-32); Chloride 111.0 mmol/L (98-107); Creatinine Clr Calc Pharmacy 123.3 ml/min; Glucose 95.0 mg/dl (70-99(Fasting)); Potassium 4.2 mmol/L (3.5-5.1); Sodium 139.0 mmol/L (136-145)
[2025-05-29 09:06] LABS: Magnesium 2.1 mg/dl (1.7-2.4)
[2025-05-29 09:29] LABS: Appearance Urine Clear (Clear); Glucose Urine UA Negative (Negative)
[2025-05-29] MEDS: PROMETHAZINE 6.25 MG/50.25 ML BAG IV PRN (09:56)
[2025-05-29] MEDS: FAMOTIDINE 20 MG TAB PO SCH (09:56)
[2025-05-29] MEDS: HYDROmorphone INJ 0.5 MG/0.5 ML SYR IV PRN (09:57)
[2025-05-29] MEDS: SODIUM CHLORIDE 0.9% 1,000 ML IV SCH (09:57)
[2025-05-29] MEDS: LORATADINE 10 MG TAB PO SCH (09:58)
[2025-05-29] MEDS: AMPICILLIN/SULBACTAM SOD 3,000 MG/100 ML BAG IV SCH (09:58)
[2025-05-29] MEDS ORDERED: DEXTROSE 10% 1,000 ML IV PRN (10:01)
--- NOTE | 2025-05-29 11:23 | Pharmacy Report ---
Pharmacy Initial PN Consult Nt - Date of Service May 29, 2025 - Scope Pharmacy has been consulted on this date to manage parenteral nutrition orders and order appropriate labs. As part of the Nutrition Support Team Guidelines, pharmacy will work in conjunction with dietary when determining the patients caloric needs. - Subjective * The patient is a 29 year old Female admitted on 05/29/25 for ASP PNX, TACHY. * Patient is to receive parenteral nutrition for chronic home TPN * Pertinent PMHx:gastroparesis, gastrointestinal dysmotility - Objective Vascular Access: * Patient currently has a central line-right internal jugular. Height & Weight (Last Documented) Height 5 ft 3 in Weight 46.2 kg Diet Order(s) 05/29/25 Breakfast Diet Intake & Ouput (24hrs) 05/28/25 05/29/25 05/30/25 06:59 06:59 06:59 Intake Total 2251.583 / 2251.583 1000 / 1000 Balance 2251.583 / 2251.583 1000 / 1000 Selected Laboratory Results 05/28/25 05/29/25 22:12 06:51 Sodium 139 139 Potassium 3.5 4.2 Chloride 105 111 H Carbon Dioxide 25 21 Anion Gap 9 7 BUN 18 13 Creatinine 0.51 L 0.50 L BUN/Creatinine Ratio 35.3 H 26.0 H Glucose 87 95 Calcium 10.0 8.8 Phosphorus 3.2 Magnesium 1.8 2.1 Total Bilirubin 0.5 AST 35 ALT 36 Alkaline Phosphatase 88 - Assessment & Plan Assessment: * Appreciate dietitians recommendations for macronutrients. Will resume using previous recommendations from admission last week as patient was stable. Lipids Friday/ per previous recs. Triglyceride level ordered for tomorrow with AM labs * Labs largely stable, noted high chloride, favoring acetate in PPN mixture. * NS @60mL/hour ok with TPN at 43mls/hr per Dr. Montoya. Plan: * For Day #1 of TPN administration, the following will be ordered: * Macronutrients: * Amino Acids: 77 grams/day * Dextrose: 134 grams/day * Lipids: -- grams/day * Micronutrients: * Sodium phosphate: 15 mMol/day * Sodium chloride: 40 mEq/day * Sodium acetate: 30 mEq/day * Potassium acetate: 50 mEq/day * Magnesium sulfate: 8.12 mEq/day * Multivitamins: 10 mL/day * Trace elements: 1 mL/day * Thiamine: 100 mg/day * Folic Acid: 1 mg/day * Total volume of 1035 mL will be infused over 24 hours and will provide 764 kcal/day * Labs will be ordered per PN protocol. * Pharmacy will follow and adjust PN orders on a daily basis. Thank you!
--- NOTE | 2025-05-29 11:50 | Electrocardiogram Report ---
Test Reason : Blood Pressure : */* mmHG Vent. Rate : 97 BPM Atrial Rate : 97 BPM P-R Int : 134 ms QRS Dur : 78 ms QT Int : 360 ms P-R-T Axes : 2 -7 28 degrees QTcB Int : 457 ms Normal sinus rhythm Possible Inferior infarct , age undetermined Abnormal ECG When compared with ECG of 26-May-2025 09:50, Criteria for Septal infarct are no longer Present Borderline criteria for Inferior infarct are now Present Confirmed by Josh Mackey ([id number]) on 05/29/2025 11:50:25 AM Referred By: REFERRED SELF Confirmed By: Josh Mackey
--- NOTE | 2025-05-29 11:58 | Hospitalist Progress Note ---
Date of Service May 29, 2025 Assessment & Plan (1) Aspiration pneumonia: Plan: per admitting service notes with addendum: Assessment and plan below following discussion of case with ED provider and reviewing patient history/pertinent normal/abnormal diagnostic test results. Nausea, Vomiting History of gastric dysmotility G-tube in place chronic TPN, recent exchange of central line - as per patient, she was able to see her GI specialist in [place], was started on Motegrity Since then, patient started to have nausea and vomiting, malaise - afebrile, no leukocytosis - blood cultures pending - CT abdomen and pelvis without contrast ordered supportive care with IV fluids, antiemetics, as needed IV Dilaudid for severe pain continue TPN GI consulted Aspiration pneumonia - on Unasyn Tachycardia secondary to above hx POTS Jaqui-Danlos disease GERD, on famotidine recurrent central line infections, consideration for J-tube placement given recurrent central line infections as per [place] GI note - blood cultures pending Right adnexal cyst, 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 Heparin subcu Full code plan of care discussed with patient in detail and at length all questions answered she is understanding, agreeable, comfortable with the plan of care Admission and Anticipated Discharge Date Admission Date: May 29, 2025 Subjective seen with MARIA ESTHER Collado at bedside throughout whole encounter Seen resting in bed, sleeping but easily awakened States she had multiple episodes of vomiting, nonbloody overnight, still having some nausea today Also reports left upper quadrant pain, IV Dilaudid relieving the pain No fevers or chills Positive bowel movements, nonbloody No other new symptoms Review of Systems Review of Systems: all noted and negative except for above Physical Exam Physical Exam: General- oriented x 3, not in distress, speaks in sentences with no effort or accessory muscle use Eyes- anicteric Neck- no JVD Lungs- clear breath sounds bilaterally, no rales/wheezes central line over the right upper chest wall: No signs of infection including erythema, tenderness, edema, no hematoma Heart- normal rate, regular rhythm; no murmurs Abdomen- G-tube in place- no signs of infection around the insertion site,normal bowel sounds, nondistended, soft, mild epigastric, LUQ tenderness Extremities- no pretibial edema, no calf tenderness Neuro- alert, oriented x 3; no gross focal neurologic deficits Skin- warm & dry Results & Data Results & Data Vital Signs (Past 12 Hours) Vital Signs Temp Pulse Pulse Pulse Resp BP BP 05/29/25 08:07 37 C 106 H 18 05/29/25 03:32 05/29/25 03:13 37 C 119 H 18 128/92 05/29/25 02:45 112 H 19 115/84 05/29/25 01:00 111 H 16 05/28/25 23:56 116 H 21 BP Pulse Ox Pulse Ox O2 Del Method O2 Del Method 05/29/25 08:07 102/66 97 Room Air 05/29/25 03:32 95 Room Air 05/29/25 03:13 95 Room Air 05/29/25 02:45 99 Room Air 05/29/25 01:00 104/67 100 Room Air 05/28/25 23:56 103/77 99 Room Air all noted and reviewed including below
--- NOTE | 2025-05-29 14:29 | CT Scan Report ---
CT SCAN OF THE ABDOMEN AND PELVIS WITHOUT IV CONTRAST CLINICAL HISTORY: Generalized abdominal pain. COMPARISON STUDY: Abdominal CT dated 05/06/2025 TECHNIQUE: CT scan of the abdomen and pelvis is performed from the lung bases to the proximal femora. Images are reviewed in the axial, sagittal, and coronal planes. IV contrast was not administered for this examination. A dose lowering technique was utilized adhering to the principles of ALARA. CT DOSE: 366.27 mGy.cm FINDINGS: Lung bases: The heart is normal in size and without pericardial effusion. The lung bases are clear. Liver: The unenhanced liver is normal in size, contour, and attenuation. There is no intrahepatic nighat iary ductal dilatation. Gallbladder: Evidence for tear within the gallbladder lumen likely represents vicariously excreted co ntrast. There is no CT evidence of acute cholecystitis. Spleen: Normal in size and attenuation. Pancreas: Unremarkable. Adrenal glands: Unremarkable. Kidneys: The unenhanced kidneys are normal in size and without hydronephrosis. There is excreted cont rast within the renal collecting systems and ureters. This degrades assessment for renal calculi. The re is no evidence of contour deforming renal mass lesion. Abdominal vasculature: The abdominal aorta is normal in course and caliber. Bowel: A percutaneous gastrostomy tube is in place. There is mild to moderate colonic fecal retention . No bowel obstruction is seen. The appendix is well-visualized and normal. Clips are again noted in the duodenum. Peritoneum: There is no intraperitoneal free air or abdominal ascites. Lymphadenopathy: None. Pelvic viscera: The bladder is normal as visualized, filled with excreted IV contrast. The uterus is normal as imaged. Approximately 9.5 x 6.5 cm right adnexal mass lesion is similar to previous. This m easures slightly greater than water density. Skeletal structures: No lytic or blastic lesions are seen. IMPRESSION: 1. No acute infectious or inflammatory findings are identified in the abdomen or pelvis. 2. An approximately 9.5 x 6.5 cm lobular lesion is seen in the right adnexa. This measures slightly d enser than water density and may represent a large ovarian cyst. If not previously performed, or if t here is concern for ovarian torsion this should be further evaluated with pelvic ultrasound. 3. Additional findings as above. ACT 112: Negative or not required by law. Electronically signed by: Daniel De Los Santos M.D. 05/29/2025 2:27 PM
[2025-05-29] MEDS: MONTELUKAST SODIUM 10 MG TABLET PO SCH (20:33)
[2025-05-30 07:23] LABS: Anion Gap 6.0 (3-11); Blood Urea Nitrogen 11.0 mg/dl (6-23); Calcium 9.2 mg/dl (8.6-10.3); Carbon Dioxide 26.0 mmol/L (21-32); Chloride 106.0 mmol/L (98-107); Creatinine Clr Calc Pharmacy 114.7 ml/min; Glucose 83.0 mg/dl (70-99(Fasting)); Magnesium 1.9 mg/dl (1.7-2.4); Potassium 3.9 mmol/L (3.5-5.1); Sodium 138.0 mmol/L (136-145); Triglycerides 119.0 mg/dl (0-150)
[2025-05-30 08:36] LABS: Iron 86.0 mcg/dl (35-150)
[2025-05-30] MEDS: KETOROLAC TROMETHAMINE 15 MG/ML VIAL IV PRN (09:12)
--- NOTE | 2025-05-30 10:57 | Gastrointestinal Consultation ---
Date of Consultation May 30, 2025 Assessment & Plan (1) Gastrointestinal dysmotility: (2) Gastrostomy tube in place: Plan 29 year old female with history infectious autoimmune neuropathy, POTS, EDS, poor PO intake and TPN dependent, history of recurrent central line-associated bloodstream infection along, GJ tube placement. Previously evaluated at [facility] --> [facility] to establish GI care with Dr. Camp at [place] in Fall 2024 admitted to [facility] w/ fevers, GI was asked to evaluate nausea and vomiting which lead her to come to the ER. She reports that she got established with Dr. Camp who started her on Motegrity along with scheduling her for a J tube placement. Since starting the Motegrity a few days ago she's noted no improvement in symptoms thus far. She currently reports that she has a bowel movement every 15 days. Last one was 5 days ago. (1) Gastric dysmotility with GJ tube placement and chronic TPN is seen today for N/V poor PO intake since starting Motegrity. - Patient presents with a very unfortunate and complex history as noted above. - We reviewed labs and imaging for acute abnormalities. - CT abd/pelvis - no obvious acute disease. She was noted to have moderate stool retention. No liver abnormalities. ? "evidence for tear within the gallbladder lumen likely represents vicariously excreted contrast. There is no CT evidence of acute cholecystitis" LFTs unremarkable. Check RUQ US for further evaluation. - H/H reveals chronic anemia similar to baseline. CMP unremarkable. HCG Qual negative. - Case reviewed with Attending resource recovery specialist. Overall, would recommend ongo ing surgical/tertiary management of medications and plans to advance to J-tube as ordered. - Thank you for allowing us to participate in the care of this patient. Please call with any acute changes, questions or concerns. Please see addendum below with additional recommendation from my supervising physician. Supervising Physician Co-Signing Physician Notes Reviewed above agree as outlined. This is a chronic problem with poor response to numerous interventions. I do not think further investigations or evaluations here at [facility] will be of benefit. I would just try to get her through this acute process and discharge for her planned follow-up appointment in [place] for possible surgical jejunostomy tube. History of Present Illness Reason for Consultation: Nausea and vomiting, Gastric dysmotility. Attending Physician: Edd Montoya MD History of Present Illness 29 year old female with history infectious autoimmune neuropathy, POTS, EDS, poor PO intake and TPN dependent, history of recurrent central line-associated bloodstream infection along, GJ tube placement. Previously evaluated at [facility] --> [facility] --> [facility] to establish GI care with Dr. Camp at [place] in Fall 2024 admitted to [facility] w/ fevers, GI was asked to evaluate nausea and vomiting which lead her to come to the ER. She reports that she got established with Dr. Camp who started her on Motegrity along with scheduling her for a J tube placement. Since starting the Motegrity she noted increased abdominal pain, N/V. She currently reports that she has a bowel movement every 15 days. Last one was 5 days ago. Past Medial History - As noted above. TPN was first initiated around 2020. Family history - Adopted. Social History - No alcohol, drugs, marijuana or tobacco use. Pertinent Diagnostics CBC - Hgb 8.2 Hct 26.6 WBC 6.27, Plt 409. CMP Na 138, K 3.9, Cl 106, CO2 26, BUN 11, Cr 0.57, Glucose 83. T-Bili 0.5, AST 35, ALT 36, Alk Phos 88. TSH - 1.77 ProCalcitonin < 0.02 HCG Qual neg Abd/pelvis CT 05/29/25 - "Evidence for tear within the gallbladder lumen likely represents vicariously excreted contrast. There is no CT evidence of acute cholecystitis. (...) A percutaneous gastrostomy tube is in place. There is mild to moderate colonic fecal retention. No bowel obstruction is seen. The appendix is well-visualized and normal. Clips are again noted in the duodenum" Otherwise no significant findings in liver, pancreas or bowels IMPRESSION: 1. No acute infectious or inflammatory findings are identified in the abdomen or pelvis. 2. An approximately 9.5 x 6.5 cm lobular lesion is seen in the right adnexa. This measures slightly denser than water density and may represent a large ovarian cyst. If not previously performed, or if there is concern for ovarian torsion this should be further evaluated with pelvic ultrasound. 3. Additional findings as above. EGD 03/10/25: Normal esophagus. A gastric tube with tip in the jejunum was found in the stomach.Normal examined duodenum. The PEJ was removed because of discomfort and replaced with an externally removable PEG for gastric decompression. No specimens collected. EGD 02/25/25: Normal esophagus. Intact gastrostomy with a patent G-tube present characterized by healthy appearing mucosa. Normal examined duodenum. The PEG was removed because it was looped, and replaced with an externally removable PEJ. No specimens collected. IN COMPREHENSIVE GI TRANSIT STUDY 08/10/21: Esophageal transit study negative for delayed emptying. Liquid only gastric emptying study is positive for delayed emptying. Combined liquid-solid study is borderline positive for delayed liquid gastric emptying, and negative for delayed solid gastric emptying. Small bowel study is negative for delayed small bowel transit. Large bowel study is positive for delayed large bowel transit. Allergies Allergy/AdvReac Type Severity Reaction Status Date / Time diphenhydramine Allergy Severe Urticaria, Verified 05/28/25 22:17 [From Benadryl] severe anxiety, jittery prochlorperazine Allergy Severe Anaphylaxis Verified 05/28/25 22:17 [From Compazine] adhesive Allergy Intermediate Redness, Verified 05/28/25 22:17 swelling banana Allergy Intermediate Itching Verified 05/28/25 22:17 bee pollen Allergy Intermediate ITCHY Verified 05/28/25 22:17 EYES, SNEEZING, CONGESTION cantaloupe Allergy Intermediate Itching Verified 05/28/25 22:17 egg Allergy Intermediate EGG Verified 05/28/25 22:17 WHITES--ITCHING gluten Allergy Intermediate Hives, GI Verified 05/28/25 22:17 upset peanut Allergy Intermediate Itchy Verified 05/28/25 22:17 throat pollen extracts Allergy Intermediate Itchy Verified 05/28/25 22:17 eyes, sneezing, congestion sesame seed Allergy Intermediate Itching Verified 05/28/25 22:17 strawberry Allergy Intermediate Itching Verified 05/28/25 22:17 tomato Allergy Intermediate Itching Verified 05/28/25 22:17 tree nut Allergy Intermediate Itchy Verified 05/28/25 22:17 throat watermelon Allergy Intermediate Itching Verified 05/28/25 22:17 chlorhexidine Allergy Unknown Unknown Verified 05/28/25 22:17 iron [From Venofer] AdvReac Severe Abdominal Verified 05/28/25 22:17 Pain fentanyl AdvReac Intermediate nausea and Verified 05/06/25 10:10 vomiting lactose AdvReac Intermediate Gastrointestinal Verified 05/28/25 22:17 Upset Latex, Natural Rubber AdvReac Intermediate Redness, Verified 05/28/25 22:17 swollen, itchy micafungin AdvReac Unknown Unknown Verified 05/28/25 22:17 polyurethane Allergy Intermediate Hives Uncoded 05/28/25 22:17 polyurethane power port Allergy Mild Itching Uncoded 05/28/25 22:17 malabar nut tree Allergy Unknown Unknown Uncoded 05/28/25 22:17 Home Medications Medication Instructions Recorded Confirmed Type cholecalciferol (vitamin D3) 1,250 1,250 mcg PO WK 04/09/25 05/28/25 History mcg (50,000 unit) tablet duloxetine 20 mg capsule,delayed 20 mg PO DAILY 04/09/25 05/28/25 History release famotidine 20 mg tablet 20 mg PO BID 04/09/25 05/28/25 History loratadine 10 mg tablet 10 mg PO DAILY 04/09/25 05/28/25 History montelukast 10 mg tablet 10 mg PO HS 04/09/25 05/28/25 History hydroxyzine HCl 50 mg tablet 50 mg PO QID PRN Anxiety 05/06/25 05/28/25 History prucalopride 2 mg tablet 2 mg PO DAILY 05/06/25 05/28/25 History ondansetron 8 mg disintegrating 8 mg PO Q8H PRN Nausea And 05/20/25 05/28/25 Rx tablet Vomiting #30 tabs mupirocin 2 % topical ointment 1 applic EXT BID 4 days #22 grams 05/26/25 05/28/25 Rx Dextrose-Sodium Chloride 1,000 ml IV DAILY 05/28/25 05/28/25 History Tpn Infusion 2,800 ml IV DIRECTED 05/28/25 05/28/25 History anticoag citrate phos dextrose 1 ml miscellaneous Q24H 05/28/25 05/28/25 History 2.63 gram-222 mg/100 mL solution folic acid 5 mg/mL injection 1 mg IV DIRECTED 05/28/25 05/28/25 History solution heparin lock flush (porcine) 10 10 unit IV DIRECTED 05/28/25 05/28/25 History unit/mL intravenous solution mvi, adult no.4 with vit K 3300 10 ml IV DAILY 05/28/25 05/28/25 History unit-150 mcg/10 mL intravenous solution (Infuvite Adult) olanzapine 5 mg tablet 5 mg PO HS 05/28/25 05/28/25 History sodium chloride 0.9 % (flush) 10 ml IV DIRECTED 05/28/25 05/28/25 History thiamine HCl (vitamin B1) 100 100 mg IV DIRECTED 05/28/25 05/28/25 History mg/mL injection solution vitamin A 3,000 mcg (10,000 unit) 3,000 mcg PO DAILY 05/28/25 05/28/25 History capsule Patient History Medical History Gastrostomy tube in place Anxiety Gastrointestinal dysmotility Reactive hypoglycemia dexcom present to left arm Anemia Neuropathy legs Gastroparesis History of COVID-19 02/2022, not hospitalized 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 Jejunostomy tube present placed October 2020 Surgical History S/P gastrostomy History of removal of Port-a-Cath (05/21/24) Infusaport Removal - Left side(Left) - Alton Garcia DO, FACS History of myringotomy History of surgery (06/24/21) Removal of Right Tunneled Central Line in Internal Jugular Catheter H/O wisdom tooth extraction H/O wrist surgery right S/P knee surgery Left Family History Other Adopted Social History Smoking Status: Never smoker Second Hand Exposure: No; Do You Dip or Chew Tobacco: No; Hx Alcohol Use: Yes Alcohol type: hard liquor Hx Substance Use: No Preferred Language: Mohawk Communication Ability: Effective Half Backer Required: No Beliefs That Will Affect Care: None Current Living Situation: Parent and Family Current Living Situation Comment: Lives w/ family at home Other Information That Helps Us Care for You: No Feels Safe at Home: Yes Safety Concerns: Feels Safe At This Time Assistive Devices: None Review of Systems Review of Systems: See HPI Physical Exam Physical Exam: Constitutional: NAD. Alert. Answering questions appropriately. Respiratory: Breathing is even, non-labored. Lungs lara are clear to auscultation anteriorly. Cardiovascular: Regular Rate and Rhythm, no murmurs, rubs or gallops appreciated. Gastrointestinal (Abdomen): Normoactive bowel sounds x4, soft, non-distended, non-tender. Musculoskeletal: Lying in bed comfortably. No peripheral edema. Results & Data Vital Signs (Past 12 Hours) Vital Signs Temp Pulse Pulse Resp BP Pulse Ox Pulse Ox 05/30/25 08:00 88 05/30/25 07:50 98.1 F 81 18 93/60 L 98 05/30/25 03:19 95 05/30/25 03:19 95/57 L 05/30/25 02:47 98.2 F 85 16 89/50 L 96 O2 Del Method O2 Del Method 05/30/25 08:00 05/30/25 07:50 Room Air 05/30/25 03:19 Room Air 05/30/25 03:19 05/30/25 02:47 Room Air PG Care Time/CCT Total # of Minutes Spent Total Time Spent with Patient: Total time spent is greater than 50% in coordination of care (as documented) at patient's floor/unit and/or counseling patient: Coding Level of Care Code 38452 Inpt Consult Level 1 Diagnoses Gastrointestinal dysmotility K92.[address] Z93.1
--- NOTE | 2025-05-30 13:25 | Hospitalist Progress Note ---
Date of Service May 30, 2025 Assessment & Plan (1) Aspiration pneumonia: Plan: per admitting service notes with addendum: Assessment and plan below following discussion of case with ED provider and reviewing patient history/pertinent normal/abnormal diagnostic test results. Nausea, Vomiting History of gastric dysmotility G-tube in place chronic TPN, recent exchange of central line - as per patient, she was able to see her GI specialist in [place], was started on Motegrity Since then, patient started to have nausea and vomiting, malaise - afebrile, no leukocytosis - blood cultures pending - CT abdomen and pelvis without contrast ordered supportive care with IV fluids, antiemetics, as needed IV Dilaudid for severe pain continue TPN GI consulted 05/30 CT abdomen pelvis: No obstruction Still having some abdominal discomfort, vomiting has resolved Still having some nausea Continue supportive care continue TPN with GI consult Aspiration pneumonia - ruled out lungs clear per CT abdomen and pelvis Tachycardia secondary to above - improving hx POTS Jaqui-Danlos disease GERD, on famotidine recurrent central line infections, consideration for J-tube placement given recurrent central line infections as per [place] GI note - blood cultures : Negative so far Afebrile Right adnexal cyst, 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 Heparin subcu Full code plan of care discussed with patient in detail and at length all questions answered she is understanding, agreeable, comfortable with the plan of care Admission and Anticipated Discharge Date Admission Date: May 29, 2025 Subjective seen resting in bed, MARIA ESTHER Valentin at bedside throughout whole encounter States abdominal pain is about the same still having some nausea, no vomiting No BM or flatus Unable to tolerate oral feeds No other new symptoms Review of Systems Review of Systems: all noted and negative except for above Physical Exam Physical Exam: General- oriented x 3, not in distress, speaks in sentences with no effort or accessory muscle use Eyes- anicteric Neck- no JVD Lungs- clear breath sounds BL Heart- normal rate, regular rhythm; no murmurs Abdomen- hypoactive bowel sounds, nondistended, soft, no tenderness Extremities- no pretibial edema, no calf tenderness Neuro- alert, oriented x 3; no gross focal neurologic deficits Skin- warm & dry Results & Data Results & Data Vital Signs (Past 12 Hours) Vital Signs Temp Pulse Pulse Resp BP Pulse Ox Pulse Ox 05/30/25 11:55 37.0 C 90 18 105/69 97 05/30/25 08:00 88 05/30/25 07:50 36.7 C 81 18 93/60 L 98 05/30/25 03:19 95 05/30/25 03:19 95/57 L 05/30/25 02:47 36.8 C 85 16 89/50 L 96 O2 Del Method O2 Del Method 05/30/25 11:55 Room Air 05/30/25 08:00 05/30/25 07:50 Room Air 05/30/25 03:19 Room Air 05/30/25 03:19 05/30/25 02:47 Room Air all noted and reviewed including below
--- NOTE | 2025-05-30 13:53 | Pharmacy Report ---
Pharmacy PN Follow-up Note - Date of Service May 30, 2025 - Subjective Patient is currently on day #2 of TPN - Objective Height & Weight (Last Documented) Height 5 ft 3 in Weight 49 kg Diet Order(s) 05/29/25 Breakfast Diet Intake & Ouput (24hrs) 05/29/25 05/30/25 05/31/25 06:59 06:59 06:59 Intake Total 2251.583 / 2251.583 2706.50 / 2706.50 420 / 420 Balance 2251.583 / 2251.583 2706.50 / 2706.50 420 / 420 Selected Laboratory Results 05/30/25 06:47 Sodium 138 Potassium 3.9 Chloride 106 Carbon Dioxide 26 Anion Gap 6 BUN 11 Creatinine 0.57 L BUN/Creatinine Ratio 19.3 Glucose 83 Calcium 9.2 Phosphorus 3.9 Magnesium 1.9 Triglycerides 119 - Assessment & Plan Assessment: * Discussed with provider/dietary and plan to transition to cyclic 12 hour TPN starting this evening (which is similar to what she receives outpatient). Provider wanting additional NS fluids along with TPN as patient not currently able to drink much d/t to pain. Labs stable, reasonable to transition to cyclic TPN for this evening. Plan: * For Day #2 of TPN administration, the following will be ordered: * Macronutrients: * Amino Acids: 80 grams/day * Dextrose: 140 grams/day * Lipids: 50 grams/day (2x/week) * Micronutrients: * Sodium phosphate: 15 mMol/day * Sodium chloride: 40 mEq/day * Sodium acetate: 30 mEq/day * Potassium acetate: 50 mEq/day * Magnesium sulfate: 8.12 mEq/day * Multivitamins: 10 mL/day * Trace elements: 1 mL/day * Thiamine: 100 mg/day * Folic Acid: 1 mg/day * Total volume of 1075 mL will be infused over 12 hours and will provide 1296 kcal/day * Pharmacy will follow and adjust PN orders on a daily basis. Thank you!
[2025-05-30] MEDS: HYDROmorphone INJ 0.5 MG/0.5 ML SYR IV PRN (18:11)
[2025-05-30] MEDS: AA 8%/D14W 1L 1,075 ML in Central TPN bag 0 ML IV SCH (20:07)
[2025-05-30] MEDS: CLINOLIPID 20% IV FAT EMULSION 250 ML IV SCH (20:08)
--- NOTE | 2025-05-30 20:15 | Ultrasound Report ---
EXAMINATION: US abdomen right upper quadrant COMPARISON: None HISTORY: Gallbladder abnormality on CT TECHNIQUE: The right upper quadrant of the abdomen was scanned in standard fashion with specialized ultrasound transducers using both montero scale and limited color Doppler techniques. Findings: Liver: The liver demonstrates normal homogeneous echotexture. No evidence of a focal hepatic mass or intrahepatic biliary ductal dilatation. The main portal vein is patent with antegrade flow. 14 cm, within normal limits. Gallbladder: The gallbladder is well distended and of normal morphology. There is no wall thickening, pericholecystic fluid, sonographic Davenport's sign nor evidence for cholelithiasis. Bile Ducts: Both the intra- and extrahepatic biliary system are of normal caliber. The common bile duct measures 3.1 mm in diameter. Pancreas: Visualized portions of the head and body of the pancreas are unremarkable. Right kidney: Normal echotexture, without mass or hydronephrosis. Right kidney craniocaudal dimension: 11.8 cm Fluid: No evidence of ascites or pleural effusions. Impression: 1. Normal right upper quadrant abdominal ultrasound. No abnormality of the gallbladder. Electronically signed by Matteo Nelson 05-30-2025 8:15 PM
[2025-05-30] MEDS: [UNRECOGNIZED DRUG - REMARK] SCH (21:09)
[2025-05-31 08:12] LABS: Folate (Folic Acid),Ser orPlas > 22.30 ng/ml (>5.38)
[2025-05-31 08:13] LABS: Vitamin B12 830 pg/ml (180-914)
[2025-05-31] MEDS: STOP CLINOLIPID SCH (08:35)
[2025-05-31 09:03] LABS: Anion Gap 10.0 (3-11); Blood Urea Nitrogen 18.0 mg/dl (6-23); Calcium 8.5 mg/dl (8.6-10.3); Carbon Dioxide 18.0 mmol/L (21-32); Chloride 104.0 mmol/L (98-107); Creatinine Clr Calc Pharmacy 115.8 ml/min; Glucose 567.0 mg/dl (70-99(Fasting)); Magnesium 2.3 mg/dl (1.7-2.4); Sodium 132.0 mmol/L (136-145)
[2025-05-31 09:04] LABS: Potassium 6.4 mmol/L (3.5-5.1)
[2025-05-31] MEDS: LORazepam Inj 0.5 MG in SYRINGE 0.25 ML IV PRN (10:54)
[2025-05-31 11:20] LABS: Alanine Aminotransferase 17.0 U/L (7-52); Albumin Globulin Ratio 1.5 (0.9-2); Albumin Level 3.9 gm/dl (3.4-5.0); Alkaline Phosphatase 57.0 U/L (34-104); Anion Gap 4.0 (3-11); Bilirubin,Total 0.3 mg/dl (0.2-1.0); Blood Urea Nitrogen 18.0 mg/dl (6-23); Calcium 9.1 mg/dl (8.6-10.3); Carbon Dioxide 26.0 mmol/L (21-32); Chloride 107.0 mmol/L (98-107); Creatinine Clr Calc Pharmacy 122.3 ml/min; Globulin 2.6 gm/dl (2.5-4.0); Glucose 83.0 mg/dl (70-99(Fasting)); Magnesium 2.0 mg/dl (1.7-2.4); Potassium 4.2 mmol/L (3.5-5.1); Sodium 137.0 mmol/L (136-145); Total Protein 6.5 gm/dl (6.0-8.3)
[2025-05-31] MEDS: HYDROmorphone INJ 0.5 MG/0.5 ML SYR IV PRN (15:11)
--- NOTE | 2025-05-31 16:53 | Hospitalist Progress Note ---
Date of Service May 31, 2025 Assessment & Plan (1) Aspiration pneumonia: Plan: per admitting service notes with addendum: Assessment and plan below following discussion of case with ED provider and reviewing patient history/pertinent normal/abnormal diagnostic test results. Nausea, Vomiting History of gastric dysmotility G-tube in place chronic TPN, recent exchange of central line - as per patient, she was able to see her GI specialist in [place], was started on Motegrity Since then, patient started to have nausea and vomiting, malaise - CT abdomen pelvis: No signs of obstruction blood cultures: Negative - afebrile Overall GI symptoms seems to be improving gradually although still having some abdominal discomfort and intermittent nausea symptoms possibly from Motegrity? At this time, patient prefers to continue Motegrity as per instructions by GI specialist in [place] GI service consulted, recommend supportive care, follow-up as outpatient with GI specialist in [place] for planned G-tube placement Aspiration pneumonia - ruled out No respiratory symptoms lungs clear per CT abdomen and pelvis Tachycardia secondary to above - improving hx POTS Jaqui-Danlos disease GERD, on famotidine Recurrent central line infections, consideration for J-tube placement given recurrent central line infections as per [place] GI note - blood cultures : Negative so far Afebrile Right adnexal cyst, 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 Heparin subcu Full code disposition Hopefully will be able to be discharged to home in 1 to 2 days plan of care discussed with patient in detail and at length all questions answered she is understanding, agreeable, comfortable with the plan of care Admission and Anticipated Discharge Date Admission Date: May 29, 2025 Subjective Seen with MARIA ESTHER Ruvalcaba at the bedside throughout whole encounter Seen resting in bed, comfortable, sleeping but easily awakened had 2-3 episodes of nonbloody vomiting overnight No vomiting so far today, still has some nausea Still having abdominal discomfort, IV Dilaudid providing relief No flatus or bowel movement yet No fevers or chills No other new symptoms Review of Systems Review of Systems: all noted and negative except for above Physical Exam Physical Exam: General- oriented x 3, not in distress, speaks in sentences with no effort or accessory muscle use Eyes- anicteric Neck- no JVD Lungs- clear BS BL central line right upper chest wall: No signs of infection insertion site Heart- normal rate, regular rhythm; no murmurs Abdomen- normal bowel sounds, nondistended, soft, no tenderness Extremities- no pretibial edema, no calf tenderness Neuro- alert, oriented x 3; no gross focal neurologic deficits Skin- warm & dry Results & Data Results & Data Vital Signs (Past 12 Hours) Vital Signs Temp Pulse Pulse Resp BP Pulse Ox O2 Del Method 05/31/25 15:51 36.8 C 104 H 16 99/61 L 98 Room Air 05/31/25 11:16 36.8 C 99 H 16 94/45 L 96 Room Air 05/31/25 07:57 36.7 C 94 H 16 94/56 L 97 Room Air 05/31/25 07:32 84 all noted and reviewed including below
--- NOTE | 2025-05-31 17:19 | Communication Note ---
Date of Service: May 31, 2025 Questionable abnormalities of gallbladder on CT scan. Ultrasound normal. Some clinical improvement. Nothing further to offer follow-up with her motility gastroenterology specialist and for possible surgical jejunostomy tube in [place] as already arranged. GI signs off reconsult.
[2025-05-31] MEDS: CENTRAL TPN IV SCH (19:57)
[2025-05-31] MEDS: [UNRECOGNIZED DRUG - OTHER] IV SCH (19:57)
[2025-06-01] MEDS: ERGOCALCIFEROL 1250 MCG (50,000 UNITS) CAP PO SCH (07:45)
[2025-06-01] MEDS: MECLIZINE 12.5 MG TAB PO SCH (09:23)
[2025-06-01] MEDS: HYDROmorphone INJ 0.5 MG/0.5 ML SYR IV PRN (09:25)
[2025-06-01 10:18] LABS: Anion Gap 7.0 (3-11); Blood Urea Nitrogen 20.0 mg/dl (6-23); Calcium 9.2 mg/dl (8.6-10.3); Carbon Dioxide 23.0 mmol/L (21-32); Chloride 108.0 mmol/L (98-107); Creatinine Clr Calc Pharmacy 115.0 ml/min; Glucose 123.0 mg/dl (70-99(Fasting)); Magnesium 1.8 mg/dl (1.7-2.4); Potassium 3.8 mmol/L (3.5-5.1); Sodium 138.0 mmol/L (136-145)
--- NOTE | 2025-06-01 15:47 | Hospitalist Progress Note ---
Date of Service June 01, 2025 Assessment & Plan (1) Aspiration pneumonia: Plan: 29 yo female with pmhx of POTS, Jaqui-Danlos disease, chronic abdominal pain, gastroparesis, GERD, H. 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 Nausea, Vomiting History of gastric dysmotility G-tube in place chronic TPN, recent exchange of central line -as per patient, she was able to see her GI specialist in [place], was started on Motegrity -Since then, patient started to have nausea and vomiting, malaise -CT abdomen pelvis: No signs of obstruction -blood cultures: Negative -afebrile -symptoms began after starting motegrity, are improving, which is typical trajectory of medication induced nausea and vomiting Plan: -continue zyprexa 5mg -stop hydroxyzine, start scheduled meclizine tid for dizziness -increase duloxetine from 20 to 40 mg -encourage ambulation and PO intake -increase dilaudid to 0.5mg q4hr prn until discharge to match half life of medication -patient understands she will not be discharged with PO opioids -may benefit from lyrica, hold off for now -start LR maintenance fluids Aspiration pneumonitis, resolved Tachycardia secondary to above - improving hx POTS Jaqui-Danlos disease GERD, on famotidine Recurrent central line infections, consideration for J-tube placement given recurrent central line infections as per [place] GI note Right adnexal cyst, 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 This time includes: history taking, physical examination, medical decision making, counseling, ECG interpretation, imaging interpretation, lab interpretation, orders, and education, excluding time spent in the performance of separately billed services. Admission and Anticipated Discharge Date Admission Date: May 29, 2025 Subjective Patient seen and examined at bedside. Patient doing ok today. Still having nausea, but no vomiting. Has chronic pain in right neck that she describes as shooting and stabbing pain, left flank that is stabbing, right flank that is dull ache. Has been getting dizzy in bed and standing up, more than normal for her. Review of Systems Review of Systems: CONSTITUTIONAL: lightheaded, dizzy EYES: Patient denies any visual symptoms. EARS, NOSE, AND THROAT: No difficulties with hearing. No symptoms of rhinitis or sore throat. CARDIOVASCULAR: Patient denies chest pains, palpitations, orthopnea and paroxysmal nocturnal dyspnea. RESPIRATORY: No dyspnea on exertion, no wheezing or cough. GI: No nausea, vomiting, diarrhea, constipation, abdominal pain, hematochezia or melena. : No urinary hesitancy or dribbling. No nocturia or urinary frequency. No abnormal urethral discharge. MUSCULOSKELETAL: right neck and abdomen pain NEUROLOGIC: No chronic headaches, no seizures. Patient denies numbness, tingling or weakness. PSYCHIATRIC: Patient denies problems with mood disturbance. No problems with anxiety. ENDOCRINE: No excessive urination or excessive thirst. DERMATOLOGIC: Patient denies any rashes or skin changes. Physical Exam Physical Exam: Gen: A&O 3 NAD, cachexia noted HEENT: NCAT, EOMI, not icteric. External ears normal. No rhinorrhea. Moist mucous membranes. Neck: Supple, full range of motion, no observable masses, No meningeal sign. Lungs: No Respiratory distress. CV: RRR, no edema. Abdomen: Soft, nondistended, No rebound tenderness. MSK: No joint swelling, no redness. Skin: No rashes, petechiae, lesions. Normal color per patient. Neuro: Normal Gait, Grossly intact. Psych: Appropriate for situation. Results & Data Results & Data Vital Signs (Past 12 Hours) Vital Signs Temp Pulse Pulse Pulse Resp BP Pulse Ox 06/01/25 15:04 37.0 C 106 H 18 114/76 97 06/01/25 13:22 107 H 06/01/25 11:17 36.7 C 113 H 18 108/71 95 06/01/25 07:36 37.0 C 96 H 18 98/64 L 96 06/01/25 06:10 84 O2 Del Method 06/01/25 15:04 Room Air 06/01/25 13:22 06/01/25 11:17 Room Air 06/01/25 07:36 Room Air 06/01/25 06:10 Laboratory Results -personally reviewed, creatinine 0.58 at baseline, electrolytes grossly unremarkable Medications Administered Ergocalciferol (Ergocalciferol 1250 Mcg (50,000 Units) Cap) 1,250 mcg PO We [facility] Stop: 07/01/25 08:59 Last Admin: 06/01/25 07:45 Dose: 1,250 mcg Documented By: ANGELA Famotidine (Famotidine 20 Mg Tab) 20 mg PO BID [facility] Stop: 06/28/25 08:59 Last Admin: 06/01/25 07:51 Dose: 20 mg Documented By: Admin: 05/31/25 19:42 Dose: 20 mg Documented By: Admin: 05/31/25 08:34 Dose: 20 mg Documented By: Admin: 05/30/25 20:05 Dose: 20 mg Documented By: Admin: 05/30/25 09:12 Dose: 20 mg Documented By: rubens Admin: 05/29/25 20:33 Dose: 20 mg Documented By: Admin: 05/29/25 09:56 Dose: 20 mg Documented By: KORY Heparin Sodium (Beef Lung) (Heparin 10 Unit/Ml 5 Ml Flush) 5 ml FLUSH PRN PRN PRN Reason: Flush Stop: 06/29/25 04:57 Last Admin: 05/30/25 15:47 Dose: 5 ml Documented By: rubens Heparin Sodium (Porcine) (Heparin Sod 5,000 Unit/0.5 Ml Vial) 5,000 units SQ Q8 [facility] Stop: 06/28/25 05:59 Last Admin: 06/01/25 14:10 Dose: 5,000 units Documented By: Admin: 06/01/25 05:38 Dose: 5,000 units Documented By: Admin: 05/31/25 20:48 Dose: 5,000 units Documented By: Admin: 05/31/25 12:51 Dose: 5,000 units Documented By: Admin: 05/31/25 05:37 Dose: 5,000 units Documented By: Admin: 05/30/25 21:10 Dose: 5,000 units Documented By: Admin: 05/30/25 15:47 Dose: 5,000 units Documented By: rubens Admin: 05/30/25 06:13 Dose: 5,000 units Documented By: Admin: 05/29/25 23:11 Dose: 5,000 units Documented By: Admin: 05/29/25 16:02 Dose: 5,000 units Documented By: Admin: 05/29/25 05:47 Dose: 5,000 units Documented By: CHASE Hydromorphone HCl (Hydromorphone Inj 0.5 Mg/0.5 Ml Syr) 0.5 mg IV Q4 PRN PRN Reason: Severe Pain (Scale 7, 8, 9,10) Stop: 06/14/25 09:34 Last Admin: 06/01/25 14:02 Dose: 0.5 mg Documented By: Admin: 06/01/25 09:25 Dose: 0.5 mg Documented By: ANGELA Lorazepam 0.5 mg/ Syringe 0.5 mls @ 2 mls/min IV Q8H PRN PRN Reason: severe nausea Stop: 06/30/25 09:34 Last Admin: 05/31/25 10:54 Dose: 2 mls/min Documented By: ZANDER Ketorolac Tromethamine (Ketorolac Tromethamine 15 Mg/Ml Vial) 15 mg IV Q6H PRN PRN Reason: Pain Stop: 06/03/25 01:32 Last Admin: 05/31/25 12:51 Dose: 15 mg Documented By: Admin: 05/30/25 09:12 Dose: 15 mg Documented By: rubens Loratadine (Loratadine 10 Mg Tab) 10 mg PO DAILY [facility] Stop: 06/28/25 08:59 Last Admin: 06/01/25 07:45 Dose: 10 mg Documented By: Admin: 05/31/25 08:34 Dose: 10 mg Documented By: Admin: 05/30/25 09:08 Dose: 10 mg Documented By: rubens Admin: 05/29/25 09:58 Dose: 10 mg Documented By: KORY Meclizine HCl (Meclizine 12.5 Mg Tab) 12.5 mg PO TID [facility] Stop: 07/01/25 08:59 Last Admin: 06/01/25 14:01 Dose: 12.5 mg Documented By: Admin: 06/01/25 09:23 Dose: 12.5 mg Documented By: ANGELA Miscellaneous (Pending Order - Rate Change For Tpn) 1 each N/A 0700,2100 [facility] Stop: 06/29/25 20:59 Last Admin: 06/01/25 07:04 Dose: 1 each Documented By: Admin: 05/31/25 20:48 Dose: 1 each Documented By: Admin: 05/31/25 08:35 Dose: 1 each Documented By: Admin: 05/30/25 21:09 Dose: 1 each Documented By: MONICA Miscellaneous (Stop Order - Tpn Order) 1 each N/A DAILY@0800 [facility] Stop: 06/30/25 07:59 Last Admin: 06/01/25 07:51 Dose: 1 each Documented By: Admin: 05/31/25 08:35 Dose: 1 each Documented By: ZANDER Montelukast Sodium (Montelukast Sodium 10 Mg Tablet) 10 mg PO [facility] Stop: 06/28/25 20:59 Last Admin: 05/31/25 19:42 Dose: 10 mg Documented By: Admin: 05/30/25 20:02 Dose: 10 mg Documented By: Admin: 05/29/25 20:33 Dose: 10 mg Documented By: TIFFANIE Olanzapine (Olanzapine 5 Mg Tablet) 5 mg PO [facility] Stop: 06/28/25 20:59 Last Admin: 05/31/25 19:42 Dose: 5 mg Documented By: Admin: 05/30/25 20:02 Dose: 5 mg Documented By: Admin: 05/29/25 20:33 Dose: 5 mg Documented By: TIFFANIE Ondansetron HCl (Ondansetron Inj 2 Mg/Ml 2 Ml Vial) 4 mg IV Q4H PRN PRN Reason: Nausea Stop: 06/28/25 01:33 Last Admin: 06/01/25 14:01 Dose: 4 mg Documented By: Admin: 06/01/25 10:26 Dose: 4 mg Documented By: Admin: 06/01/25 04:27 Dose: 4 mg Documented By: Admin: 05/31/25 15:11 Dose: 4 mg Documented By: Admin: 05/31/25 08:34 Dose: 4 mg Documented By: Admin: 05/31/25 04:12 Dose: 4 mg Documented By: Admin: 05/30/25 18:11 Dose: 4 mg Documented By: rubens Admin: 05/30/25 13:56 Dose: 4 mg Documented By: Admin: 05/30/25 09:12 Dose: 4 mg Documented By: rubens Admin: 05/30/25 06:13 Dose: 4 mg Documented By: Admin: 05/29/25 16:02 Dose: 4 mg Documented By: Admin: 05/29/25 05:48 Dose: 4 mg Documented By: CHASE Prucalopride (Prucalopride Succinate 2mg) 1 each PO DAILY [facility] Stop: 06/29/25 08:59 Last Admin: 06/01/25 07:45 Dose: 1 each Documented By: Admin: 05/31/25 08:34 Dose: 1 each Documented By: Admin: 05/30/25 09:08 Dose: 1 each Documented By: rubens
[2025-06-01] MEDS: LACTATED RINGER'S 1,000 ML IV SCH (18:18)
[2025-06-01] MEDS: AA 8%/D14W 1L 1,079 ML in Central TPN bag 0 ML IV SCH (20:03)
[2025-06-02 10:25] LABS: Anion Gap 7.0 (3-11); Blood Urea Nitrogen 18.0 mg/dl (6-23); Calcium 9.5 mg/dl (8.6-10.3); Carbon Dioxide 26.0 mmol/L (21-32); Chloride 105.0 mmol/L (98-107); Creatinine Clr Calc Pharmacy 115.0 ml/min; Glucose 96.0 mg/dl (70-99(Fasting)); Magnesium 2.0 mg/dl (1.7-2.4); Potassium 4.2 mmol/L (3.5-5.1); Sodium 138.0 mmol/L (136-145)
--- NOTE | 2025-06-02 13:30 | Hospitalist Progress Note ---
Date of Service June 02, 2025 Assessment & Plan (1) Aspiration pneumonia: Plan: 29 yo female with pmhx of POTS, Jaqui-Danlos disease, chronic abdominal pain, gastroparesis, GERD, H. 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 Nausea, Vomiting History of gastric dysmotility G-tube in place chronic TPN, recent exchange of central line -as per patient, she was able to see her GI specialist in [place], was started on Motegrity -Since then, patient started to have nausea and vomiting, malaise -CT abdomen pelvis: No signs of obstruction -blood cultures: Negative -afebrile -symptoms began after starting motegrity, are improving, which is typical trajectory of medication induced nausea and vomiting Plan: -continue zyprexa 5mg -continue scheduled meclizine tid for dizziness -continue duloxetine 40 mg -encourage ambulation and PO intake -continue dilaudid 0.5mg q4hr prn until discharge to match half life of medication -patient understands she will not be discharged with PO opioids -may benefit from lyrica, hold off for now -discharge tomorrow -stop motegrity given likely cause of dizziness Aspiration pneumonitis, resolved Tachycardia secondary to above - improving hx POTS Jaqui-Danlos disease GERD, on famotidine Recurrent central line infections, consideration for J-tube placement given recurrent central line infections as per [place] GI note Right adnexal cyst, 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 This time includes: history taking, physical examination, medical decision making, counseling, ECG interpretation, imaging interpretation, lab interpretation, orders, and education, excluding time spent in the performance of separately billed services. Admission and Anticipated Discharge Date Admission Date: May 29, 2025 Subjective Patient seen and examined at bedside. Patient doing ok today. Still having nausea, dizziness. No improvement since yesterday. Had long discussion regarding motegrity. Symptoms began and go worse after starting, and dizziness is common side effect of motegrity. Unable to control this despite maximum medication management. Patient has J tube appointment on Friday, and patient wants to be home before that. Discussed shared decision making of stopping motegrity, and discharge tomorrow to be home for weekend before J tube admission. Review of Systems Review of Systems: CONSTITUTIONAL: lightheaded, dizzy EYES: Patient denies any visual symptoms. EARS, NOSE, AND THROAT: No difficulties with hearing. No symptoms of rhinitis or sore throat. CARDIOVASCULAR: Patient denies chest pains, palpitations, orthopnea and paroxysmal nocturnal dyspnea. RESPIRATORY: No dyspnea on exertion, no wheezing or cough. GI: No nausea, vomiting, diarrhea, constipation, abdominal pain, hematochezia or melena. : No urinary hesitancy or dribbling. No nocturia or urinary frequency. No abnormal urethral discharge. MUSCULOSKELETAL: right neck and abdomen pain NEUROLOGIC: No chronic headaches, no seizures. Patient denies numbness, tingling or weakness. PSYCHIATRIC: Patient denies problems with mood disturbance. No problems with anxiety. ENDOCRINE: No excessive urination or excessive thirst. DERMATOLOGIC: Patient denies any rashes or skin changes. Physical Exam Physical Exam: Gen: A&O 3 NAD, cachexia noted HEENT: NCAT, EOMI, not icteric. External ears normal. No rhinorrhea. Moist mucous membranes. Neck: Supple, full range of motion, no observable masses, No meningeal sign. Lungs: No Respiratory distress. CV: RRR, no edema. Abdomen: Soft, nondistended, No rebound tenderness. MSK: No joint swelling, no redness. Skin: No rashes, petechiae, lesions. Normal color per patient. Neuro: Normal Gait, Grossly intact. Psych: Appropriate for situation. Results & Data Results & Data Vital Signs (Past 12 Hours) Vital Signs Temp Pulse Pulse Resp BP Pulse Ox O2 Del Method 06/02/25 10:52 37.0 C 119 H 16 111/79 95 Room Air 06/02/25 08:03 36.9 C 108 H 16 104/70 99 Room Air 06/02/25 05:34 88 06/02/25 02:53 36.8 C 90 18 101/69 95 Room Air Laboratory Results -personally reviewed, creatinine at baseline Medications Administered Duloxetine HCl (Duloxetine Hcl 20 Mg Cap) 40 mg PO DAILY [facility] Stop: 07/02/25 08:59 Last Admin: 06/02/25 08:58 Dose: 40 mg Documented By: ANGELA Ergocalciferol (Ergocalciferol 1250 Mcg (50,000 Units) Cap) 1,250 mcg PO We [facility] Stop: 07/01/25 08:59 Last Admin: 06/01/25 07:45 Dose: 1,250 mcg Documented By: ANGELA Famotidine (Famotidine 20 Mg Tab) 20 mg PO BID [facility] Stop: 06/28/25 08:59 Last Admin: 06/02/25 09:51 Dose: 20 mg Documented By: Admin: 06/01/25 20:04 Dose: 20 mg Documented By: Admin: 06/01/25 07:51 Dose: 20 mg Documented By: Admin: 05/31/25 19:42 Dose: 20 mg Documented By: Admin: 05/31/25 08:34 Dose: 20 mg Documented By: Admin: 05/30/25 20:05 Dose: 20 mg Documented By: Admin: 05/30/25 09:12 Dose: 20 mg Documented By: rubens Admin: 05/29/25 20:33 Dose: 20 mg Documented By: Admin: 05/29/25 09:56 Dose: 20 mg Documented By: KORY Heparin Sodium (Beef Lung) (Heparin 10 Unit/Ml 5 Ml Flush) 5 ml FLUSH PRN PRN PRN Reason: Flush Stop: 06/29/25 04:57 Last Admin: 05/30/25 15:47 Dose: 5 ml Documented By: rubens Heparin Sodium (Porcine) (Heparin Sod 5,000 Unit/0.5 Ml Vial) 5,000 units SQ Q8 [facility] Stop: 06/28/25 05:59 Last Admin: 06/02/25 12:46 Dose: 5,000 units Documented By: Admin: 06/02/25 06:03 Dose: 5,000 units Documented By: Admin: 06/01/25 21:06 Dose: 5,000 units Documented By: Admin: 06/01/25 14:10 Dose: 5,000 units Documented By: Admin: 06/01/25 05:38 Dose: 5,000 units Documented By: Admin: 05/31/25 20:48 Dose: 5,000 units Documented By: Admin: 05/31/25 12:51 Dose: 5,000 units Documented By: Admin: 05/31/25 05:37 Dose: 5,000 units Documented By: Admin: 05/30/25 21:10 Dose: 5,000 units Documented By: Admin: 05/30/25 15:47 Dose: 5,000 units Documented By: rubens Admin: 05/30/25 06:13 Dose: 5,000 units Documented By: Admin: 05/29/25 23:11 Dose: 5,000 units Documented By: Admin: 05/29/25 16:02 Dose: 5,000 units Documented By: Admin: 05/29/25 05:47 Dose: 5,000 units Documented By: CHASE Hydromorphone HCl (Hydromorphone Inj 0.5 Mg/0.5 Ml Syr) 0.5 mg IV Q4 PRN PRN Reason: Severe Pain (Scale 7, 8, 9,10) Stop: 06/14/25 09:34 Last Admin: 06/02/25 12:46 Dose: 0.5 mg Documented By: Admin: 06/02/25 09:01 Dose: 0.5 mg Documented By: Admin: 06/02/25 04:54 Dose: 0.5 mg Documented By: Admin: 06/01/25 22:35 Dose: 0.5 mg Documented By: Admin: 06/01/25 18:18 Dose: 0.5 mg Documented By: Admin: 06/01/25 14:02 Dose: 0.5 mg Documented By: Admin: 06/01/25 09:25 Dose: 0.5 mg Documented By: ANGELA Lorazepam 0.5 mg/ Syringe 0.5 mls @ 2 mls/min IV Q8H PRN PRN Reason: severe nausea Stop: 06/30/25 09:34 Last Admin: 06/01/25 23:34 Dose: 2 mls/min Documented By: Admin: 05/31/25 10:54 Dose: 2 mls/min Documented By: ZANDER Ketorolac Tromethamine (Ketorolac Tromethamine 15 Mg/Ml Vial) 15 mg IV Q6H PRN PRN Reason: Pain Stop: 06/03/25 01:32 Last Admin: 05/31/25 12:51 Dose: 15 mg Documented By: Admin: 05/30/25 09:12 Dose: 15 mg Documented By: rubens Loratadine (Loratadine 10 Mg Tab) 10 mg PO DAILY [facility] Stop: 06/28/25 08:59 Last Admin: 06/02/25 08:59 Dose: 10 mg Documented By: Admin: 06/01/25 07:45 Dose: 10 mg Documented By: Admin: 05/31/25 08:34 Dose: 10 mg Documented By: Admin: 05/30/25 09:08 Dose: 10 mg Documented By: rubens Admin: 05/29/25 09:58 Dose: 10 mg Documented By: KORY Meclizine HCl (Meclizine 12.5 Mg Tab) 12.5 mg PO TID [facility] Stop: 07/01/25 08:59 Last Admin: 06/02/25 12:47 Dose: 12.5 mg Documented By: Admin: 06/02/25 09:00 Dose: 12.5 mg Documented By: Admin: 06/01/25 20:04 Dose: 12.5 mg Documented By: Admin: 06/01/25 14:01 Dose: 12.5 mg Documented By: Admin: 06/01/25 09:23 Dose: 12.5 mg Documented By: ANGELA Goodman (Pending Order - Rate Change For Tpn) 1 each N/A 0700,2100 [facility] Stop: 06/29/25 20:59 Last Admin: 06/02/25 07:00 Dose: 1 each Documented By: Admin: 06/01/25 21:06 Dose: 1 each Documented By: Admin: 06/01/25 07:04 Dose: 1 each Documented By: Admin: 05/31/25 20:48 Dose: 1 each Documented By: Admin: 05/31/25 08:35 Dose: 1 each Documented By: Admin: 05/30/25 21:09 Dose: 1 each Documented By: MONICA Goodman (Stop Order - Tpn Order) 1 each N/A DAILY@0800 [facility] Stop: 06/30/25 07:59 Last Admin: 06/02/25 08:00 Dose: 1 each Documented By: Admin: 06/01/25 07:51 Dose: 1 each Documented By: Admin: 05/31/25 08:35 Dose: 1 each Documented By: ZANDER Montelukast Sodium (Montelukast Sodium 10 Mg Tablet) 10 mg PO HS [facility] Stop: 06/28/25 20:59 Last Admin: 06/01/25 20:04 Dose: 10 mg Documented By: Admin: 05/31/25 19:42 Dose: 10 mg Documented By: Admin: 05/30/25 20:02 Dose: 10 mg Documented By: Admin: 05/29/25 20:33 Dose: 10 mg Documented By: TIFFANIE Olanzapine (Olanzapine 5 Mg Tablet) 5 mg PO HS [facility] Stop: 06/28/25 20:59 Last Admin: 06/01/25 20:04 Dose: 5 mg Documented By: Admin: 05/31/25 19:42 Dose: 5 mg Documented By: Admin: 05/30/25 20:02 Dose: 5 mg Documented By: Admin: 05/29/25 20:33 Dose: 5 mg Documented By: TIFFANIE Ondansetron HCl (Ondansetron Inj 2 Mg/Ml 2 Ml Vial) 4 mg IV Q4H PRN PRN Reason: Nausea Stop: 06/28/25 01:33 Last Admin: 06/02/25 12:46 Dose: 4 mg Documented By: Admin: 06/02/25 09:00 Dose: 4 mg Documented By: Admin: 06/02/25 04:54 Dose: 4 mg Documented By: Admin: 06/01/25 22:35 Dose: 4 mg Documented By: Admin: 06/01/25 18:18 Dose: 4 mg Documented By: Admin: 06/01/25 14:01 Dose: 4 mg Documented By: Admin: 06/01/25 10:26 Dose: 4 mg Documented By: Admin: 06/01/25 04:27 Dose: 4 mg Documented By: Admin: 05/31/25 15:11 Dose: 4 mg Documented By: Admin: 05/31/25 08:34 Dose: 4 mg Documented By: Admin: 05/31/25 04:12 Dose: 4 mg Documented By: Admin: 05/30/25 18:11 Dose: 4 mg Documented By: rubens Admin: 05/30/25 13:56 Dose: 4 mg Documented By: Admin: 05/30/25 09:12 Dose: 4 mg Documented By: rubens Admin: 05/30/25 06:13 Dose: 4 mg Documented By: Admin: 05/29/25 16:02 Dose: 4 mg Documented By: Admin: 05/29/25 05:48 Dose: 4 mg Documented By: CHASE Prucalopride (Prucalopride Succinate 2mg) 1 each PO DAILY [facility] Stop: 06/29/25 08:59 Last Admin: 06/02/25 08:58 Dose: 1 each Documented By: Admin: 06/01/25 07:45 Dose: 1 each Documented By: Admin: 05/31/25 08:34 Dose: 1 each Documented By: Admin: 05/30/25 09:08 Dose: 1 each Documented By: rubens
[2025-06-02] MEDS: CLINOLIPID 20% IV FAT EMULSION 250 ML IV SCH (19:36)
[2025-06-02] MEDS: AA 8%/D14W 1L 1,079 ML in Central TPN bag 0 ML IV SCH (19:36)
[2025-06-03 06:56] LABS: Anion Gap 7.0 (3-11); Blood Urea Nitrogen 22.0 mg/dl (6-23); Calcium 9.5 mg/dl (8.6-10.3); Carbon Dioxide 26.0 mmol/L (21-32); Chloride 104.0 mmol/L (98-107); Creatinine Clr Calc Pharmacy 123.6 ml/min; Glucose 106.0 mg/dl (70-99(Fasting)); Magnesium 2.0 mg/dl (1.7-2.4); Potassium 4.1 mmol/L (3.5-5.1); Sodium 137.0 mmol/L (136-145)
[2025-06-03 08:36] VITALS: TEMP 98.1; O2SAT 98
[2025-06-03 11:22] VITALS: PULSE 94; RESP 20
[2025-06-03 13:15] VITALS: BP 119/79
--- NOTE | 2025-06-03 14:25 | Discharge Summary ---
Discharge Summary Date of Service June 03, 2025 Principal Dx & Hospital Course #1 = Principal Diagnosis (1) Aspiration pneumonia: 29 yo female with pmhx of POTS, Jaqui-Danlos disease, chronic abdominal pain, gastroparesis, GERD, H. 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 Nausea, Vomiting History of gastric dysmotility G-tube in place chronic TPN, recent exchange of central line -as per patient, she was able to see her GI specialist in [place], was started on Motegrity -Since then, patient started to have nausea and vomiting, malaise -CT abdomen pelvis: No signs of obstruction -blood cultures: Negative -afebrile -symptoms began after starting motegrity, are improving, which is typical trajectory of medication induced nausea and vomiting Plan: -continue zyprexa 5mg -continue scheduled meclizine tid for dizziness -continue duloxetine 40 mg -encourage ambulation and PO intake -continue dilaudid 0.5mg q4hr prn until discharge to match half life of medication -patient understands she will not be discharged with PO opioids -may benefit from lyrica, hold off for now -discharge tomorrow -stop motegrity given likely cause of dizziness Aspiration pneumonitis, resolved Tachycardia secondary to above - improving hx POTS Jaqui-Danlos disease GERD, on famotidine Recurrent central line infections, consideration for J-tube placement given recurrent central line infections as per [place] [facility] note Right adnexal cyst, patient follows with [facility] machine tender Incidental finding of supraclinoid left ICA aneurysm - no headaches outpatient neurology ff up Severe malnutrition - 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 On medicine, increased duloxetine to 40 mg, started meclizine for dizziness. Concern for aspiration pneumonitis resolved. Gave nausea medications as needed. Nausea, vomiting, dizziness improved. On 06/03/2025 patient medically stable for discharge home. To do: [ ] stop motegrity [ ] f/u with J tube placement visit [ ] taking pain medication sparingly and as needed -Incidental Findings: 1 x 1 x 1 mm aneurysm of the supraclinoid left ICA, right adnexal lesion Medication Changes From Visit -meclizine, morphine (very short course) Admission HPI Per Admitting Provider History obtained from patient, family, and records. Medical history significant for POTS, Jaqui-Danlos disease, chronic abdominal pain, gastroparesis, GERD, H. 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 Recent confinement May 23 to 2024 for possible adverse reaction to micafungin. Patient started not feeling well a few days ago. Nausea, vomiting symptoms without unusual abdominal pain. No unusual chest pain, SOB, or headache symptoms. No actual cough symptoms. Patient also started new Motegrity medication prescribed by by her tan room supervisor from [facility] at about the time she got sick. Zosyn administered at the ER. Medical History as above Surgical History : Vascular procedures, tendon sheath/wrist surgery, GJ tube placement, knee surgery, tympanostomy tube placement Family History : Unknown as patient was adopted Personal/Social history : Non-smoker, no EtOH intake, unemployed Discharge Exam Gen: A&O 3 NAD, cachexia noted HEENT: NCAT, EOMI, not icteric. External ears normal. No rhinorrhea. Moist mucous membranes. Neck: Supple, full range of motion, no observable masses, No meningeal sign. Lungs: No Respiratory distress. CV: RRR, no edema. Abdomen: Soft, nondistended, No rebound tenderness. MSK: No joint swelling, no redness. Skin: No rashes, petechiae, lesions. Normal color per patient. Neuro: Normal Gait, Grossly intact. Psych: Appropriate for situation. Updated Medication List Medication Instructions Recorded Confirmed Type cholecalciferol (vitamin D3) 1,250 1,250 mcg PO WK 04/09/25 05/28/25 History mcg (50,000 unit) tablet famotidine 20 mg tablet 20 mg PO BID 04/09/25 05/28/25 History loratadine 10 mg tablet 10 mg PO DAILY 04/09/25 05/28/25 History montelukast 10 mg tablet 10 mg PO HS 04/09/25 05/28/25 History prucalopride 2 mg tablet 2 mg PO DAILY 05/06/25 05/28/25 History mupirocin 2 % topical ointment 1 applic EXT BID 4 days #22 grams 05/26/25 05/28/25 Rx Dextrose-Sodium Chloride 1,000 ml IV DAILY 05/28/25 05/28/25 History Tpn Infusion 2,800 ml IV DIRECTED 05/28/25 05/28/25 History anticoag citrate phos dextrose 1 ml miscellaneous Q24H 05/28/25 05/28/25 History 2.63 gram-222 mg/100 mL solution folic acid 5 mg/mL injection 1 mg IV DIRECTED 05/28/25 05/28/25 History solution heparin lock flush (porcine) 10 10 unit IV DIRECTED 05/28/25 05/28/25 History unit/mL intravenous solution mvi, adult no.4 with vit K 3300 10 ml IV DAILY 05/28/25 05/28/25 History unit-150 mcg/10 mL intravenous solution (Infuvite Adult) olanzapine 5 mg tablet 5 mg PO HS 05/28/25 05/28/25 History sodium chloride 0.9 % (flush) 10 ml IV DIRECTED 05/28/25 05/28/25 History thiamine HCl (vitamin B1) 100 100 mg IV DIRECTED 05/28/25 05/28/25 History mg/mL injection solution duloxetine 20 mg capsule,delayed 40 mg (2 x 20 mg) PO DAILY #30 caps 06/03/25 Rx release meclizine 12.5 mg tablet 12.5 mg PO TID 14 days #42 tabs 06/03/25 Rx morphine 10 mg/5 mL oral solution 5 mg (2.5 mL) PO Q6H PRN pain 3 06/03/25 Rx days #30 mL ondansetron 8 mg disintegrating 8 mg PO Q6 PRN nausea and vomiting 06/03/25 Rx tablet 14 days #60 tabs Hospital Stay Data Consultations 05/29/25 01:19 ED Decision to Admit Stat 05/29/25 11:00 Consult Gastroenterology Routine Diagnostic Imagining Performed 05/28/25 21:54 CTA head wo/w [CT angio head wo/w] Stat CTA neck with con [CT angio neck with con] Stat 05/29/25 11:00 CT Abd and Pelvis [CT abd pelvis wo con] Urgent 05/30/25 17:57 US RUQ [US liver] Routine Pending Results Patient Have Any Pending Studies at Discharge: No Discharge Instructions Given to Patient (Per Discharging Provider) Diagnosis: nausea/vomiting 2/2 motegrity, aspiriation pneumonitis, chronic pain syndrome Incidental Findings: 1 x 1 x 1 mm aneurysm of the supraclinoid left ICA, right adnexal lesion Follow ups: PCP, GI, surgery 1. Please take medications as prescribed, stop motegrity. 2. Please take nausea medication as needed. 3. Please take morphine sparingly for severe pain, only until appointment. Total Time Total Time Spent Total Time Spent (In Minutes): I spent a total of 35 minutes in direct patient care, including [id number] time with the patient and/or family, reviewing medical records, ordering and reviewing diagnostic tests, and coordinating care with other healthcare providers. This time includes: history taking, physical examination, medical decision making, counseling, ECG interpretation, imaging interpretation, lab interpretation, orders, and education, excluding time spent in the performance of separately billed services.
== END 2025-06-03 14:37 | disposition home or self-care (01) | DRG 177 ==
LOC: ED 21:40 → 2N 05-29 01:43 → SUATTDRO 05-29 01:43 → 2N 05-29 02:45